=== PATIENT | male | born 1960 | race Caucasian/White ===

== ENCOUNTER 2016-04-08 11:33 | Emergency (ER) | payer OTHER ==
[~2016-04-08] VITALS: Ht 167.6 cm; Wt 79.2 kg
[~2016-04-08 11:33] MED LIST: ALBUAER19 INH; CRS20 PO; LEVO-366 PO; MOME200A INH; OXGN
[2016-04-08 11:36] VITALS: TEMP 36.8; Ht 167.6 cm; Wt 79.2 kg
[2016-04-08] MEDS ORDERED: LEVAQUIN 750MG / 150ML D5W IV STA (11:56)
[2016-04-08] MEDS ORDERED: METHYLPREDNISOLONE 125 MG VIAL IV STA (11:56)
[2016-04-08] MEDS ORDERED: ALBUTEROL 0.083% NEBU SOLN 3 ML VIAL INH STA (11:56)
[2016-04-08 12:09] VITALS: O2SAT 95
--- NOTE | 2016-04-08 12:17 | DIAGNOSTIC IMAGING REPORT ---
CHEST ONE VIEW PORTABLE CLINICAL HISTORY: EVALUATE RESPIRATORY DISTRESS. DYSPNEA dyspnea COMPARISON STUDY: 02/15/2016 FINDINGS: The bones soft tissues and hemidiaphragms are normal. The cardiomediastinal silhouette is normal. The lungs are clear. The pulmonary vasculature is normal. IMPRESSION: Negative chest. Electronically signed by: Darryn Castanon M.D. 04/08/2016 12:15 PM
[2016-04-08 12:18] LABS: BASO % 0.7 %; BASO ABS # 0.05 K/uL (0-0.2); COMPLETE YES; EOS % 4.1 %; HEMATOCRIT 43.7 % (42-52); IG% 0.3 %; LYMPH % 20.3 %; LYMPH ABS # 1.45 K/uL (1.2-3.4); MEAN CELL VOLUME 92.4 fL (80-100); MEAN CORPUSCULAR HEMOGLOBIN 30.9 pg (25-34); MEAN CORPUSCULAR HGB CONC 33.4 g/dl (32-36); MEAN PLATELET VOLUME 10.3 fL (7.4-10.4); NEUT % 61.6 %; PLATELET COUNT 242 K/uL (130-400); RED BLOOD COUNT 4.73 M/uL (4.7-6.1); WHITE BLOOD COUNT 7.14 K/uL (4.8-10.8)
[2016-04-08 12:27] LABS: PARTIAL THROMBOPLASTIN RATIO 1.2; PROTHROMBIN TIME (PATIENT) 10.5 SECONDS (9.0-12.0)
[2016-04-08 12:33] LABS: ALT/SGPT 30 U/L (12-78); AST/SGOT 15 U/L (15-37); BLOOD UREA NITROGEN 5 mg/dl (7-18); BUN/CREATININE RATIO 5.3 (10-20); CALCIUM 9.1 mg/dl (8.5-10.1); CARBON DIOXIDE 31 mmol/L (21-32); CHLORIDE 103 mmol/L (98-107); CREATININE 0.92 mg/dl (0.60-1.40); GLUCOSE 107 mg/dl (70-99); POTASSIUM 3.9 mmol/L (3.5-5.1); SODIUM 141 mmol/L (136-145)
[2016-04-08 12:37] LABS: ALKALINE PHOSPHATASE 82 U/L (45-117)
[2016-04-08] MEDS ORDERED: ASPI81TA28 PO (12:38)
[2016-04-08] MEDS ORDERED: LEVO1TAB35 PO (14:49)
[2016-04-08] MEDS ORDERED: PRED50TA PO (14:49)
[2016-04-08 15:08] VITALS: BP 134/86; PULSE 94; O2SAT 96
--- NOTE | 2016-04-08 18:31 | EMERGENCY ROOM VISIT NOTE ---
History Report prepared by Lalo: Ale York Under the Supervision of: Dr. Janusz Sotelo D.O. First contact with patient: 11:40 Chief Complaint: RESPIRATORY PROBLEMS Stated Complaint: RESPIRATORY PROBLEMS, BREATHING DIFFICULTY History of Present Illness The patient is a 55 year old male who presents to the Emergency Room with complaints of worsening respiratory problems that started two days ago. The patient normally wears nasal cannula oxygen at home but lately it is offering him minimal relief. He tried to relieve his symptoms with his nebulizer treatments and inhalers. He is also experiencing dyspnea on exertion, which is new for him. He states that he started experiencing a productive cough with yellow sputum yesterday. Additionally, he is experiencing lightheadedness, chills, and rhinorrhea. The patient is also experiencing diarrhea that started 3 days ago. He states that he experienced epigastric abdominal pain a couple days ago but denies any abdominal pain since then. He denies sorethroat, nausea , vomiting, hematochezia, and lower extremity edema. He also denies recent travel, any history of blood clots or cancer, and recent antibiotic or steroid use. The patient has COPD from smoking but states that he does not smoke now. He is on 2 L nasal cannula. Source of History: patient Onset: two days ago Position: chest Quality: other (respiratory problems) Timing: worsening Associated Symptoms: + abdominal pain (epigastric, none currently), + chills , + cough (productive with yellow sputum), No hematochezia, No nausea, No sorethroat, No vomiting Note: dyspnea on exertion, lightheadedness, rhinorrhea, no lower extremity edema Review of Systems See HPI for pertinent positives & negatives. A total of 10 systems reviewed and were otherwise negative. Past Medical & Surgical Medical Problems: (1) Hyperlipemia (2) Hypoxia (3) Respiratory failure Surgical Problems: (1) H/O rotator cuff surgery Family History FH: cancer FH: heart disease FH: lung disease Hypertension Kidney disease Social History Smoking Status: Former Smoker Drug Use: none Marital Status: Housing Status: lives with family Occupation Status: unemployed Current/Historical Medications Scheduled Aspirin (Aspirin Ec), 81 MG PO DAILY Levofloxacin (Levaquin), 750 MG PO QD@08 Mometasone Furoate-Formoterol (Dulera 200/5 Mcg), 2 AER INH BID Oxygen (Oxygen), 2 LITERS NA CONTINOUS Prednisone (Prednisone), 50 MG PO DAILY Rosuvastatin Calcium (Crestor), 20 MG PO DAILY Scheduled PRN Albuterol Inhaler (Ventolin Inhaler), 1 INHA INH QID PRN for rescue inhaler Allergies Coded Allergies: No Known Allergies (Unverified , 04/08/16) Physical Exam Vital Signs Date Time Temp Pulse Resp B/P Pulse Ox O2 Delivery O2 Flow Rate FiO2 04/08/16 15:08 94 22 134/86 96 Nasal Cannula 2.0 04/08/16 14:06 87 Nasal Cannula 2.0 04/08/16 13:15 104 22 127/88 97 Room Air 04/08/16 12:58 106 04/08/16 12:12 Nasal Cannula 3.0 95 04/08/16 12:09 95 Nasal Cannula 3.0 04/08/16 12:09 95 Nasal Cannula 3.0 04/08/16 11:36 36.8 112 20 108/76 86 Room Air Physical Exam GENERAL: alert, sitting up in bed, disheveled appearing, on nasal cannula oxygen , well nourished, no distress, non-toxic EYE EXAM: normal conjunctiva OROPHARYNX: no exudate, no erythema, lips, buccal mucosa, and tongue normal and mucous membranes are dry NECK: supple, no nuchal rigidity, no adenopathy, non-tender LUNGS: Minimal air movement bilaterally with diffuse wheezing. Normal chest wall mechanics HEART: no murmurs, S1 normal and S2 normal ABDOMEN: abdomen soft, non-tender, normo-active bowel sounds, no masses, no rebound or guarding. BACK: Back is symmetrical on inspection and there is no deformity, no midline tenderness, no CVA tenderness. SKIN: no rashes and no bruising UPPER EXTREMITIES: upper extremities are grossly normal. LOWER EXTREMITIES: No pitting edema. NEURO EXAM: Normal sensorium, cranial nerves II-XII grossly intact, normal speech, no gross weakness of arms, no gross weakness of legs. Medical Decision & Procedures ER Provider Diagnostic Interpretation: Xray results per the radiologist and my interpretation. Other results have been interpreted by the radiologist and reviewed by me. CHEST ONE VIEW PORTABLE CLINICAL HISTORY: EVALUATE RESPIRATORY DISTRESS. DYSPNEA dyspnea COMPARISON STUDY: 02/15/2016 FINDINGS: The bones soft tissues and hemidiaphragms are normal. The cardiomediastinal silhouette is normal. The lungs are clear. The pulmonary vasculature is normal. IMPRESSION: Negative chest. Electronically signed by: Darryn Castanon M.D. 04/08/2016 12:15 PM Laboratory Results 04/08/16 12:00 Red Blood Count 4.73, Mean Corpuscular Volume 92.4, Mean Corpuscular Hemoglobin 30.9, Mean Corpuscular Hemoglobin Concent 33.4, Mean Platelet Volume 10.3, Neutrophils (%) (Auto) 61.6, Lymphocytes (%) (Auto) 20.3, Monocytes (%) (Auto) 13.0, Eosinophils (%) (Auto) 4.1, Basophils (%) (Auto) 0.7, Neutrophils # (Auto ) 4.40, Lymphocytes # (Auto) 1.45, Monocytes # (Auto) 0.93, Eosinophils # (Auto ) 0.29, Basophils # (Auto) 0.05 04/08/16 12:00 Test 04/08/16 12:00 White Blood Count 7.14 K/uL (4.8-10.8) Red Blood Count 4.73 M/uL (4.7-6.1) Hemoglobin 14.6 g/dL (14.0-18.0) Hematocrit 43.7 % (42-52) Mean Corpuscular Volume 92.4 fL (80-100) Mean Corpuscular Hemoglobin 30.9 pg (25-34) Mean Corpuscular Hemoglobin Concent 33.4 g/dl (32-36) Platelet Count 242 K/uL (130-400) Mean Platelet Volume 10.3 fL (7.4-10.4) Neutrophils (%) (Auto) 61.6 % Lymphocytes (%) (Auto) 20.3 % Monocytes (%) (Auto) 13.0 % Eosinophils (%) (Auto) 4.1 % Basophils (%) (Auto) 0.7 % Neutrophils # (Auto) 4.40 K/uL (1.4-6.5) Lymphocytes # (Auto) 1.45 K/uL (1.2-3.4) Monocytes # (Auto) 0.93 K/uL (0.11-0.59) Eosinophils # (Auto) 0.29 K/uL (0-0.5) Basophils # (Auto) 0.05 K/uL (0-0.2) RDW Standard Deviation 46.1 fL (36.4-46.3) RDW Coefficient of Variation 13.6 % (11.5-14.5) Immature Granulocyte % (Auto) 0.3 % Immature Granulocyte # (Auto) 0.02 K/uL (0.00-0.02) Prothrombin Time 10.5 SECONDS (9.0-12.0) Prothromb Time International Ratio 1.0 (0.9-1.1) Activated Partial Thromboplast Time 32.2 SECONDS (21.0-31.0) Partial Thromboplastin Ratio 1.2 Anion Gap 7.0 mmol/L (3-11) Est Creatinine Clear Calc Drug Dose 89.7 ml/min Estimated GFR () 108.1 Estimated GFR (Non- 93.3 BUN/Creatinine Ratio 5.3 (10-20) Calcium Level 9.1 mg/dl (8.5-10.1) Total Bilirubin 0.3 mg/dl (0.2-1) Aspartate Amino Transf (AST/SGOT) 15 U/L (15-37) Alanine Aminotransferase (ALT/SGPT) 30 U/L (12-78) Alkaline Phosphatase 82 U/L (45-117) Troponin I < 0.015 ng/ml (0-0.045) Pro-B-Type Natriuretic Peptide 24 pg/ml (0-900) Total Protein 7.6 gm/dl (6.4-8.2) Albumin 3.8 gm/dl (3.4-5.0) Globulin 3.8 gm/dl (2.5-4.0) Albumin/Globulin Ratio 1.0 (0.9-2) Laboratory results per my review. Medications Administered Medications (Trade) Dose Ordered Sig/Lisandra Route Start Time Stop Time Status Last Admin Dose Admin Albuterol Sulfate (Ventolin 0.083% 2.5MG/3ML Neb) 5 mg NOW STAT INH 04/08/16 11:56 04/08/16 12:00 DC 04/08/16 12:09 5 MG Methylprednisolone Sodium Succinate (Solu-Medrol IV) 125 mg NOW STAT IV 04/08/16 11:56 04/08/16 12:00 DC 04/08/16 12:08 125 MG Levofloxacin (Levaquin / D5w) 750 mg NOW STAT IV 04/08/16 11:56 04/08/16 12:00 DC 04/08/16 12:08 750 MG ECG Indication: SOB/dyspnea Rate (beats per minute): 87 Rhythm: sinus rhythm Findings: Q waves (Septal), no ectopy, other (normal axis, poor baseline) ED Course ED COURSE: Vital signs were reviewed and showed tachycardia. The patients medical record was reviewed The above diagnostic studies were performed and reviewed. ED treatments and interventions as stated above. 1145: The patient was evaluated in room B9. A complete history and physical examination was performed. 1156: Ordered Levofloxacin 750 mg IV, Solu-Medrol 125 mg IV, Albuterol Sulfate 5 mg INH 1314: I reassessed and updated the patient. 1446: Upon reevaluation, the patient is feeling better. He does not want to stay and prefers to go home even though his pulse ox goes down to 87%. I discussed my findings with the patient and he understands and agrees with the treatment plan. Based on the patients age, coexisting illnesses, exam and lab findings the decision to treat as an outpatient was made. The patient remained stable while under my care. The patient appeared well at the time of discharge. Medical Decision Differential diagnoses includes but is not limited to pneumonia, bronchitis, COPD/Asthma exacerbation, pneumothorax, pulmonary embolism, congestive heart failure, acute coronary syndrome Patient is a 55-year-old male with a past medical history of COPD from smoking chronically on 2 L nasal cannula presents the ER for over esterase symptoms associated with yellow productive cough, shortness of breath, runny nose and sore throat which has been worsening over the past 3 days. He called his PCP who referred him into the hospital for further evaluation. Labs show no significant anemia or leukocytosis. BMP along with LFTs, troponin are all unremarkable. Patient on room air is hypoxic but on his chronic 2 L stats in the mid 90s. When he does ambulate he dropped down to 87-89% on his 2 L. Patient was given a neb treatment along with steroids and antibiotics. He notes that he does feel much better. He requested to be discharged and would prefer to be worked up as an outpatient. I did recommend admission the patient notes all follow with his PCP within 24 hours I would rather do this at home. Following this I discharged him with Levaquin and steroids instructed him to follow-up with his PCP along with increasing his nasal cannula to 3 L with exertion. Discussed with Pt concerning signs and symptoms to watch out for. Pt was instructed to follow up with their PCP and discussed with the patient their option to return to the ED at anytime for persistent or worsening symptoms. The appropriate anticipatory guidance and out-patient management, including indications for return to the emergency department, were explained at length to the patient and understood. Impression Primary Impression: COPD exacerbation Additional Impression: Bronchitis Scribe Attestation The scribe's documentation has been prepared under my direction and personally reviewed by me in its entirety. I confirm that the note above accurately reflects all work, treatment, procedures, and medical decision making performed by me. Departure Information Dispostion Home / Self-Care Prescriptions Levofloxacin (Levaquin) 750 Mg Tab 750 MG PO QD@08, #9 TAB Prov: Janusz Sotelo, DO 04/08/16 Prednisone (PREDNISONE) 50 Mg Tab 50 MG PO DAILY for 4 Days, TAB Prov: Janusz Sotelo, DO 04/08/16 Referrals Parvene Roper D.OBree (PCP) Forms HOME CARE DOCUMENTATION FORM, IMPORTANT VISIT INFORMATION, WORK / SCHOOL INSTRUCTIONS Patient Instructions A Signature Page, COPD - [facility], ED Bronchitis Abx Tx, My [facility] Additional Instructions Please follow up with your primary care doctor with in the next 24 hours. Any worsening of your symptoms, please return to the ED immediately. This includes worsening shortness of breath, passing out, chest pain, or any other concerning signs or symptoms from your standpoint. Please take antibiotics and steroids as prescribed. You should increase her oxygen from 2 L to 3 L with ambulation.
== END 2016-04-08 15:23 | disposition home or self-care (01) ==
LOC: C.EDB 11:52
DX: J44.1 Chronic obstructive pulmonary disease with (acute) exacerbation (principal); J40 Bronchitis, not specified as acute or chronic; E78.5 Hyperlipidemia, unspecified; R19.7 Diarrhea, unspecified; Z87.891 Personal history of nicotine dependence; Z99.81 Dependence on supplemental oxygen; Z79.52 Long term (current) use of systemic steroids; Z79.82 Long term (current) use of aspirin; Z79.899 Other long term (current) drug therapy

== ENCOUNTER → 2016-07-14 | Outpatient (CLI) | payer OTHER ==
[~2016-07-14] MED LIST changes: +ASPI81TA28 PO; -LEVO-366 PO; +LEVO1TAB35 PO
--- NOTE | 2016-07-15 06:26 | PAP/PSG TECHNICIAN REPORT ---
[facility] Special Machine Stitcher Polysomnogram Report Study name: None Report date: 07/15/2016 Study date: 07/14/2016 Referring Physician: RADHA BRYANT Name: JENNIE HODGE Interpreting Physician: Evy Altman M.D. Date of : 1960 Special Machine Stitcher: Doris Luis RPS. Sex: Male Age: 56 StudyType: PSG Weight: 176 lbs Height: 56 years, Height 5' 6" BMI: 28.4 Medications: Nicotine Patch, Advair, Ventolin, Aspirin 81 mg, Oxygen Patient History 56 yr. old male here for a possible split night with ETC02. Patient is on 2 lpm 02, he will be started on room air. Patient complains of snoring. restlessness, snoring and insomnia. Patients [place]field sleepiness scale score is 13/24. Parameters Monitored NPSG: E1-M2, E2-M1, Fp1-M2, Fp2-M1, F3-M2, F4-M2, F4-M1, C3-M2, C4-M2, C4-M1, O1-M2, O2-M2, O2-M1, T3-M2, T4-M1, P3-M2, P4-M1, CHIN1, CHIN2, HR, EKG, Legs, PFLOW, SNOR, FLOW, CFLOW, Tidal Volume, THOR, ABDO, SpO2, PLTH, CPRESS, ETCO2 Wave, ETCO2, pH Sleep Architecture Sleep Stages Time at Lights Off 10:53:07 PM STAGES Time (min.) TST (%) Time at Lights On 5:26:07 AM Wake 80.5 -- Total Recording Time (TRT) 393.50 min. N1 27.0 9 Total Sleep Period (TSP) 353.0 min. N2 206.5 66 Total Sleep Time (TST) 312.5min. N3 20.0 6 Awake Time 80.5 min. REM 59.0 19 Wake after Sleep Onset 40.5 min. Sleep Efficiency (SE) 80 % Sleep Onset Latency (ANN) 40.0 min. Number of Stage 1 Shifts None Awakenings 25 Stage Changes 115 Number of REM periods 14 REM 59.0 19 REM Latency 66.5 min. NREM 253.5 81 Body Position Analysis Supine Right Left Side Prone Vertical Total Sleep Time (min.) 215.8 154.1 0.0 154.14 0.0 0.0 Total Sleep Time (%) 51% 49% 0% 49 0% N/A% Total Sleep Time REM (min.) 37.0 22.0 0.0 None 0.0 0.0 Total Sleep Time NREM (min.) 121.4 132.1 0.0 None 0.0 0.0 Intermittent Wake (min.) 57.5 23.0 0.0 None 0.0 0.0 Total Sleep Period (%) 50% None None None None None Arousals Myoclonus (PLM) * Events Count Index Events Count Index Spontaneous 22 4 Events Awake (PLMW) 48 35.8 Respiratory 12 2.7 Events Asleep w/ Arousal (PLMA) 22 4.2 PLM 22 4 Events Asleep w/o Arousal (PLMS) 59 11.3 Snoring 9 2 Total Asleep 81 15.6 Total 64 12 Total 129 20 Respiratory Analysis * CA OA MA CH H RERA Total Count 0 0 0 0 52 0 52 Index 0.0 0.0 0.0 0 10.0 0 10.0 Mean Duration 0.0 0.0 0.0 0.00 24.0 0.0 24.0 Longest Duration 0.0 0.0 0.0 0.00 0.0 0.0 54.8 Respiratory Event Summary Total Supine ~Supine Right Left Prone REM NREM Apneas Count 0 0 0 0 N/A N/A 0 0 Index 0.0 0 0 0.0 N/A N/A 0 0 Hypopneas (4% Desat) Count 52 35 17 17 N/A N/A 39 13 Index 10.0 13.3 7 6.6 N/A N/A 39.7 3.1 Apneas & All Hypopneas Count 52 35 17 17 N/A N/A 39 13 Index 10.0 13 7 7 N/A N/A 39.7 3.1 Respiratory Events (Manager Media+All Hyp+RERA) Count 52 35 17 17 N/A N/A 39 13 Index 10.0 13 7 6.6 N/A N/A 39.7 3.1 Respiratory Related Arousal Count 12 35 5 5 N/A N/A 10 4 Index 2.7 3 2 2 N/A N/A 10 1 Snoring Analysis Supine Right Left Prone REM NREM Total Snore duration 7.7 min Snores count 470 14 N/A N/A 15 469 484 Snore mean duration 1.0 Sec Snores index 178 5 N/A N/A 15.3 111.0 92.9 TST with snoring (%) 2.5% SpO2 Analysis Total REM NREM Awake <50% 0.0 min. 0.0 min. 0.0 min. 0.0 min. 51 - 60% 0.0 min. 0.0 min. 0.0 min. 0.0 min. 61 - 70% 0.0 min. 0.0 min. 0.0 min. 0.0 min. 71 - 80% 1.0 min. 0.8 min. 0.0 min. 0.2 min. 81 - 90% 361.7 min. 56.8 min. 241.8 min. 63.2 min. 91 - 100% 29.8 min. 1.4 min. 11.7 min. 16.8 min. Average 88 87 88 89 Minimum SpO2 79 79 79 80 Desaturation Event Index 8.2 37.6 3.3 3.7 # Desat. Events below 89% 54 37 12 5 Time(%) with Saturation below 89% 56.2 11.7 38.2 6.3 Time(min.) with Saturation below 89% 220.6 45.7 150.1 24.7 Heart Rate Analysis End Tidal CO2 Analysis Min (bpm) Max (bpm) Average (bpm) TSP (mins) % of TSP Awake 73 115 95 Above 55 mmHg 0.0 0.0 NREM 78 109 90 50-55 mmHg 0.0 0.0 REM 71 103 89 45-50 mmHg 2.8 0.9 Overall 71 109 90 40-45 mmHg 122.9 39.3 35-40 mmHg 126.4 40.5 30-35 mmHg 10.1 3.2 Average ETCO2 0.2 Supplemental O2 Values Minimum O2 level: None Value Start Time End Time Special Machine Stitcher Comments Mr. Hodge slept in the right and supine position. PLMs noted no EKG abnormalities noted. No bruxism noted. Snoring was noted and scored as a 3 on a scale of 0 through 5. (0=no snoring, 5=snoring loud enough to be heard through a closed door or down the [address] way) Mr. Hodge did not wake to use the restroom during the night. Mr. Hodge stated,That was a normal night. The final report will be interpreted and signed by a sleep physician. The completed physician report will then be placed in the patient medical record. Therapy (cm H2O) 0 TIB (min.) 393.0 TST (min.) 312.5 Sleep Onset (min.) 40.0 REM Onset From Sleep (min.) 66.5 Sleep Efficiency % 80 Wakefulness (%) 20 Wakefulness (min.) 80.5 NREM 1 (%) 9 NREM 1 (min.) 27.0 NREM 2 (%) 66 NREM 2 (min.) 206.5 NREM 3 (%) 6 NREM 3 (min.) 20.0 REM (%) 19 REM (min.) 59.0 # Arousals 64 Arousal Index 12 # Snore 484 Snore Index 92.9 AHI 10.0 AHI Supine 13 AHI Non-Supine 7 NREM AHI 3.1 REM AHI 39.7 RDI 10.0 # Obstructive Apnea 0 # Central Apnea 0 # Mixed Apnea 0 # Hypopneas 52 RERAs 0 Total Respiratory Events 53 Time Below SpO2 89% (min.) 195.8 Mean NREM SpO2 (%) 88 Mean REM SpO2 (%) 87 Mean Sleep SpO2 (%) 88 Min NREM SpO2 (%) 79 Min REM SpO2 (%) 79 Position Supine (min.) 215.8 Position Non-supine (min.) 154.1 LM Index Sleep 15.6 LM Index NREM 14.2 LM Index REM 21.4 Mean Heart Rate (bpm) 90 Min Heart Rate (bpm) 71
--- NOTE | 2016-07-27 18:36 | POLYSOMNOGRAPH REPORT ---
INTERPRETING PHYSICIAN: Roselyn Altman MD LEAD TELLER: Mr. Hodge is a 56-year-old male sent for a possible split night sleep study. He currently wears 2 liters of oxygen at bedtime. He complains of snoring, restlessness and insomnia. His Nordheim Sleepiness Scale score on the evening of this study is 13. BMI is 28.4. Following the technical and digital specifications of the [place] [employer] (AASM) a standard diagnostic polysomnogram was performed monitoring EEG, EOG, EMG (chin and leg deviations), oxygen saturation, body position, digital video, respiratory effort and airflow. The sleep Stage and event scoring was based on the AASM Manual for the Scoring of Sleep and Associated Events 2007 edition. Apneas are defined as a drop in the peak thermal sensor excursion by >90% of baseline for at least 10 seconds. Hypopneas were scored using the 4% oxygen desaturation rule (4A-Medicare) and a decrease in the nasal pressure excursions by >30% of baseline for at least 10 seconds. Respiratory effort-related arousal (RERA's) is defined as a sequence of breaths lasting at least 10 seconds characterized by increasing respiratory effort or flattening of the nasal pressure waveform leading to an arousal from sleep when the sequence of breaths does not meet criteria for an apnea or hypopnea. Apnea Hypopnea index (AHI) is defined as the number of apneas and hypopneas occurring in an hour of sleep. Respiratory disturbance index (RDI) is defined as the number of apneas, hypopneas, and RERA's occurring in an hour of sleep. Mr. Hodge's total sleep period time was 353 minutes. Total sleep time was 312.5 minutes. Sleep efficiency was 80%. Latency to sleep onset was 40 minutes with wake after sleep onset of 40.5 minutes. Total non-REM sleep time was 253.5 minutes. He spent 9% of that time in N1 sleep, 66% in N2 sleep and 6% in N3 sleep. REM latency was 66.5 minutes. Total REM sleep time was 59 minutes or 19% of total sleep time. There were 64 cortical arousals from sleep. 22 of these arousals were spontaneous, 12 were due to respiratory events, 22 due to periodic limb movements and 9 were due to snoring. There were for 81 periodic limb movements noted on this test. Limb movement index was 15.6. Limb movement with arousal index was 4.2. There were no central, obstructive, or mixed apneas on this test. There were 52 hypopneas and no RERA. Apnea-hypopnea index was 10. This is consistent with mild sleep apnea. Supine AHI was 13. REM AHI was 39.7. There were 464 snoring events recorded. Total sleep time with snoring was 2.5%. Mean saturation during sleep was low at 88%. Saturations were less than 89% for 220.6 minutes of recording time. Lowest saturation was 79%. This is significant nocturnal hypoxemia. There was no cardiac ectopy noted on this study. Heart rates ranged from a low of 71 beats per minute to a high of 109 beats per minute during sleep. End tidal CO2 was recorded on this test. However, this data appeared to be incomplete. IMPRESSION AND PLAN: A 56-year-old male with evidence of mild sleep apnea present both in supine and non-supine REM sleep, predominantly. I would recommend that this patient be started on positive airway pressure therapy. He should return to the sleep lab for a full night titration and then based on those results be started on equipment at home. A download from his machine can be reviewed in 1 month both to check compliance as well as apnea-hypopnea index and further pressure adjustments can occur at that time. This will ensure that her hypoxemia as well as apnea resolves with CPAP therapy. Should this patient be unwilling or unable to tolerate CPAP therapy, he should continue on his 2 liters of oxygen and be referred to ear, nose and throat or oral surgery/dental medicine (if appropriate) to discuss alternative treatments for sleep-disordered breathing. SEB
== END | disposition home or self-care (01) ==
LOC: C.NEUR 21:00
PROVIDERS: ATTEND Family Medicine
DX: J44.9 Chronic obstructive pulmonary disease, unspecified (principal); G47.34 Idiopathic sleep related nonobstructive alveolar hypoventilation; R06.83 Snoring; G47.62 Sleep related leg cramps; F51.04 Psychophysiologic insomnia; G47.30 Sleep apnea, unspecified

== ENCOUNTER → 2016-09-17 | Outpatient (CLI) | payer OTHER ==
[~2016-09-17] MED LIST changes: +GADOXETATE DISODIUM (NON-WT BASED PROCEDURE) IV PRN
--- NOTE | 2016-09-17 12:47 | DIAGNOSTIC IMAGING REPORT ---
MRI LIVER COMBO CLINICAL HISTORY: Abnormal liver function tests. Liver lesion. COMPARISON STUDY: Chest CT from [facility] August 29, 2016. TECHNIQUE: Utilizing a 1.5 Shauna magnet and dedicated coil, multiplanar, multiecho imaging of the abdomen was performed pre and postcontrast administration. FINDINGS: Liver morphology is normal. There are multiple small T2 hyperintense nonenhancing hepatic lesions consistent with cysts. These measure up to 1 cm. In addition, there is a 1 cm T2 hyperintense lesion within segment 2 of the liver shown on axial image 15 of 88. This has a few thin enhancing septations. No nodular component is present. This has benign imaging characteristics. The spleen, adrenal glands, kidneys and pancreas are normal. There is no biliary or pancreatic ductal dilatation. There is no abdominal lymphadenopathy or ascites. IMPRESSION: Several small hepatic cysts which correspond to the lesions on recent chest CT. These lesions have benign imaging characteristics. Electronically signed by: Andrew Ivan M.D. 09/17/2016 12:46 PM Dictated Date/Time: 09/17/2016 12:11 PM
== END | disposition home or self-care (01) ==
LOC: C.MRIBC 10:47
PROVIDERS: ATTEND Internal Medicine
DX: R94.5 Abnormal results of liver function studies (principal); K76.9 Liver disease, unspecified

== ENCOUNTER → 2016-12-10 | Outpatient (CLI) | payer OTHER ==
[~2016-12-10] MED LIST changes: -GADOXETATE DISODIUM (NON-WT BASED PROCEDURE) IV PRN; -LEVO1TAB35 PO
--- NOTE | 2016-12-11 06:37 | PAP/PSG TECHNICIAN REPORT ---
[facility] Computer Information Science Professor Polysomnogram Report Study name: None Report date: 12/11/2016 Study date: 12/10/2016 Referring Physician: Geovanny ALTMAN M.D. Name: JENNIE HODGE Interpreting Physician: Evy Altman M.D. Date of : 1960 Computer Information Science Professor: Kait Mariee RPSGT. Sex: Male Age: 56 Study Type: PSG PAP Weight: 176 lbs Height: 56 years, Height 5' 6" BMI: 28.4 Medications: CRESTOR 20 MG, ANORA ELLIPTA 62.5-25 MCG/INH, PREDNISONE 20 MG, VENTOLIN HFA, ASPIRIN 81 MG Patient History 56 yr-old male here for a new CPAP treatment study. He was found to be positive for JESUS with an AHI of 10. His diagnostic study was on 07/14/16. He chose an AirFit F10 full face mask size medium from [employer]. The test was started on room air and 4 CMH2O. ETCO2 testing was not utilized during this study. Room 1 Parameters Monitored NPSG: E1-M2, E2-M1, Fp1-M2, Fp2-M1, F3-M2, F4-M2, F4-M1, C3-M2, C4-M2, C4-M1, O1-M2, O2-M2, O2-M1, T3-M2, T4-M1, P3-M2, P4-M1, CHIN1, CHIN2, HR, EKG, Legs, PFLOW, SNOR, FLOW, CFLOW, Tidal Volume, THOR, ABDO, SpO2, PLTH, CPRESS, ETCO2 Wave, ETCO2, pH Sleep Architecture Sleep Stages Time at Lights Off 10:49:56 PM STAGES Time (min.) TST (%) Time at Lights On 5:38:26 AM Wake 158.5 -- Total Recording Time (TRT) 408.50 min. N1 46.5 19 Total Sleep Period (TSP) 358.0 min. N2 167.0 67 Total Sleep Time (TST) 250.0min. N3 0.5 0 Awake Time 158.5 min. REM 36.0 14 Wake after Sleep Onset 112.5 min. Sleep Efficiency (SE) 61 % Sleep Onset Latency (ANN) 46.0 min. Number of Stage 1 Shifts None Awakenings 18 Stage Changes 73 Number of REM periods 2 REM 36.0 14 REM Latency 80.5 min. NREM 214.0 86 Body Position Analysis Supine Right Left Side Prone Vertical Total Sleep Time (min.) 113.3 0.0 226.0 226.00 0.0 0.0 Total Sleep Time (%) 10% 0% 90% 90 0% N/A% Total Sleep Time REM (min.) 0.0 0.0 36.0 None 0.0 0.0 Total Sleep Time NREM (min.) 24.0 0.0 190.0 None 0.0 0.0 Intermittent Wake (min.) 89.3 5.5 63.7 None 0.0 0.0 Total Sleep Period (%) 20% None None None None None Arousals Myoclonus (PLM) * Events Count Index Events Count Index Spontaneous 55 13 Events Awake (PLMW) 51 19.3 Respiratory 3 0.7 Events Asleep w/ Arousal (PLMA) 5 1.2 PLM 5 1 Events Asleep w/o Arousal (PLMS) 22 5.3 Snoring 3 1 Total Asleep 27 6.5 Total 66 16 Total 78 11 Respiratory Analysis * CA OA MA CH H RERA Total Count 3 0 0 0 17 2 20 Index 0.7 0.0 0.0 0 4.1 0 5.3 Mean Duration 12.6 0.0 0.0 0.00 18.6 15.0 17.5 Longest Duration 14.5 0.0 0.0 0.00 0.0 16.7 30.3 Respiratory Event Summary Total Supine ~Supine Right Left Prone REM NREM Apneas Count 3 0 3 N/A 3 N/A 0 3 Index 0.7 0 1 N/A 0.8 N/A 0 1 Hypopneas (4% Desat) Count 17 1 16 N/A 16 N/A 13 4 Index 4.1 2.5 4 N/A 4.2 N/A 21.7 1.1 Apneas & All Hypopneas Count 20 1 19 N/A 19 N/A 13 7 Index 4.8 3 5 N/A 5 N/A 21.7 2.0 Respiratory Events (Animal Technician+All Hyp+RERA) Count 20 1 21 N/A 21 N/A 13 7 Index 5.3 3 6 N/A 5.6 N/A 21.7 2.5 Respiratory Related Arousal Count 3 1 3 N/A 3 N/A 1 2 Index 0.7 0 1 N/A 1 N/A 2 1 Snoring Analysis Supine Right Left Prone REM NREM Total Snore duration 0.7 min Snores count 0 N/A 25 N/A 7 18 25 Snore mean duration 1.7 Sec Snores index 0 N/A 7 N/A 11.7 5.0 6.0 TST with snoring (%) 0.3% Desaturation Event Summary: Minimum %SpO2 Event Count Mean/Min/Max Duration(sec.) Desaturation Index % Time In Bed > 90 12 26.7 / 7.5 / 47.8 12.5 14.4 86 - 90 23 23.5 / 7.3 / 43.0 4.1 83.7 81 - 85 2 13.0 / 9.5 / 16.5 16.1 1.9 76 - 80 0 N/A 0.0 0.0 71 - 75 0 N/A 0.0 0.0 66 - 70 0 N/A 0.0 0.0 61 - 65 0 N/A 0.0 0.0 56 - 60 0 N/A 0.0 0.0 51 - 55 0 N/A 0.0 0.0 < 50 0 N/A 0.0 0.0 Total REM NREM Awake <50% 0.0 min. 0.0 min. 0.0 min. 0.0 min. 51 - 60% 0.0 min. 0.0 min. 0.0 min. 0.0 min. 61 - 70% 0.0 min. 0.0 min. 0.0 min. 0.0 min. 71 - 80% 0.0 min. 0.0 min. 0.0 min. 0.0 min. 81 - 90% 342.6 min. 31.1 min. 207.7 min. 103.7 min. 91 - 100% 57.7 min. 4.9 min. 6.3 min. 46.5 min. Average 89 88 89 90 Minimum SpO2 82 82 83 84 Desaturation Event Index 3.8 28.3 0.6 2.6 # Desat. Events below 89% 26 17 2 7 Time(%) with Saturation below 89% 41.9 5.2 27.5 9.3 Time(min.) with Saturation below 89% 167.6 20.6 109.9 37.1 Time (mins) REM (mins) NREM (mins) % of TST SpO2 Below 90% 19 17 N2 80.4 SpO2 Below 88% 8 0 0 19 Heart Rate Analysis Min (bpm) Max (bpm) Average (bpm) Awake 66 107 78 NREM 65 94 73 REM 64 84 73 Overall 64 94 73 Supplemental O2 Values Minimum O2 level: None Value Start Time End Time Computer Information Science Professor Comments Mr. Hodge slept in the right, left, and supine positions. No cardiac arrhythmia or PLMs noted. No bruxism noted. CPAP was initiated at +4 CMH2O and up-titrated to a level of +9 CMH2O, Cflex 2 which nearly eliminated all respiratory events and snoring. An AirFit F10 full face mask size medium from [employer] was used during titration He awoke to use the restroom one time during the night. Mr. Hodge stated that he slept ok. The final report will be interpreted and signed by a sleep physician. The completed physician report will then be placed in the patient medical record. Therapy Event: Therapy (cm H20) 4 6 8 9 Total Time at Pressure (min.) 130.9 18.8 148.4 110.4 TST at Pressure (min.) 64.4 18.8 137.8 29.0 # Periods 1 1 1 1 Sleep Onset (min.) 46.0 0.0 0.0 55.4 REM Onset (min.) 126.5 0.0 0.0 N/A Sleep Efficiency % 49 100 92 26 Wakefulness (%) 50.8 0.0 7.1 73.7 Wakefulness (min.) 66.5 0.0 10.6 81.4 NREM 1 (%) 9.9 0.0 8.4 19.0 NREM 1 (min.) 13.0 0.0 12.5 21.0 NREM 2 (%) 35.9 0.0 75.5 7.2 NREM 2 (min.) 47.0 0.0 112.0 8.0 NREM 3 (%) 0.0 0.0 0.3 0.0 NREM 3 (min.) 0.0 0.0 0.5 0.0 REM (%) 3.4 100.0 8.6 0.0 REM (min.) 4.4 18.8 12.8 0.0 # Arousals 19 3 20 24 Arousal Index 17.7 9.6 8.7 49.7 # Snore 0 5 20 0 Snore Index 0.0 16.0 8.7 0.0 AHI 5.6 32.0 1.3 2.1 AHI Supine 0.0 N/A N/A 5.7 AHI Non-Supine 7.1 32.0 1.3 0.0 NREM AHI 3.0 N/A 1.4 2.1 REM AHI 40.6 32.0 0.0 N/A RDI 5.6 32.0 2.2 2.1 # Obstructive 0 0 0 0 # Central Ap 1 0 2 0 # Mixed 0 0 0 0 # Hypopneas 5 10 1 1 RERAS 0 0 2 0 Total Respiratory Events 6 10 5 1 Time Below SpO2 89.00% (min.) 11.9 8.5 99.6 10.6 Mean NREM SpO2 (%) 89 N/A 88 89 Mean REM SpO2 (%) 87 89 87 N/A Mean Sleep SpO2 (%) 89 89 88 89 Min NREM SpO2 (%) 83 N/A 84 87 Min REM SpO2 (%) 83 82 84 N/A Position Supine (min.) 13.5 0.0 0.0 10.5 Position Non-supine (min.) 50.9 18.8 137.8 18.5 LM Index Sleep 8.4 6.4 3.5 16.6 LM Index NREM 9.0 N/A 2.9 16.6 LM Index REM 0.0 6.4 9.4 N/A Mean Heart Rate (bpm) 73 73 73 73 Min Heart Rate (bpm) 65 65 64 69
--- NOTE | 2016-12-19 16:47 | POLYSOMNOGRAPH REPORT ---
REFERRING PERSON: Dr. Roselyn Altman. CHIN STRAP SEWER: Kait Mariee. Mr. Hodge is a 56-year-old male sent for CPAP titration study. He was recently found to have obstructive sleep apnea with an AHI of 10 on 07/14/2016. He has chosen an AirFit F10 full face mask in a medium size by [employer] for his titration. His [place] sleepiness scale score on the evening of this study is not recorded. BMI is 28.4. Following the technical and digital specifications of the [place] [employer] (AASM) a standard diagnostic polysomnogram was performed monitoring EEG, EOG, EMG (chin and leg deviations), oxygen saturation, body position, digital video, respiratory effort and airflow. The sleep Stage and event scoring was based on the AASM Manual for the Scoring of Sleep and Associated Events 2007 edition. Apneas are defined as a drop in the peak thermal sensor excursion by >90% of baseline for at least 10 seconds. Hypopneas were scored using the 4% oxygen desaturation rule (4A-[employer]) and a decrease in the nasal pressure excursions by >30% of baseline for at least 10 seconds. Respiratory effort-related arousal (RERA's) is defined as a sequence of breaths lasting at least 10 seconds characterized by increasing respiratory effort or flattening of the nasal pressure waveform leading to an arousal from sleep when the sequence of breaths does not meet criteria for an apnea or hypopnea. Apnea Hypopnea index (AHI) is defined as the number of apneas and hypopneas occurring in an hour of sleep. Respiratory disturbance index (RDI) is defined as the number of apneas, hypopneas, and RERA's occurring in an hour of sleep. Mr. Hodge's total sleep period time was 358 minutes. Total sleep time was 250 minutes. Sleep efficiency was 61%. Latency to sleep onset was 46 minutes with wake after sleep onset of 112.5 minutes. Total non-REM sleep time was 214 minutes. He spent 19% of that time in N1 sleep, 67% in N2 sleep and had no time in N3 sleep. REM latency was 80.5 minutes. Total REM sleep time was 36 minutes or 14% of total sleep time. There were 66 cortical arousals from sleep. 55 of these arousals were spontaneous, 3 were due to respiratory events, 5 due to periodic limb movements of sleep and 3 were due to snoring. There were 27 periodic limb movements noted on this test. Limb movement index was 6.5. Limb movement with arousal index was 1.2. There were 3 central, no obstructive, and no mixed apnea on this titration. There were 17 hypopnea and 2 RERA. Apnea-hypopnea index was 4.8. Twenty-five snoring events were recorded. Total sleep time with snoring was 0.3%. Mean saturation was low at 89% with desaturations to 82%. Saturations were less than 89% for 167.6 minutes of this sleep study. There was no cardiac ectopy noted on this study. Heart rates ranged from a low of 64 beats per minute to a high of 94 beats per minute during sleep. As stated above, this was a CPAP titration study and this patient was titrated from a CPAP pressure of 4 to a CPAP pressure of 9 over the course of the night. Increasing pressures were needed to prevent apneas, hypopneas and arousals. He was titrated to a CPAP pressure of 9, but remained on a pressure of 9 for only 29 minutes of observation. There was a long period of wakefulness on a pressure of 9. His AHI and RDI on a pressure 9 were both 2.1; however, saturations remained less than 89% for 10.6 minutes of sleep time. He was observed on a pressure of 8 for 137.8 minutes of sleep. 12.8 of those minutes was spent in REM sleep. AHI and RDI were 1.3 and 2.2 respectively, but saturations were less than 89 for 99.6 minutes of recorded time. IMPRESSION AND PLAN: Suboptimal, but successful CPAP titration study in this patient with mild sleep apnea. It appears that this patient would benefit from CPAP therapy at a pressure of 9. Unfortunately, it appears that he is likely going to have residual hypoxemia on CPAP alone. An n.p.o. can be performed on CPAP at 9 and if oxygen levels are low, he can be started on oxygen supplementation with his CPAP. As the cause of this nocturnal hypoxemia, given that his overall AHI on its virginal test was only 10, is unknown, this patient may benefit from pulmonary function test and/or pulmonary consultation.
== END | disposition home or self-care (01) ==
LOC: C.NEUR 21:00
PROVIDERS: ATTEND Internal Medicine Pulmonary Disease
DX: G47.34 Idiopathic sleep related nonobstructive alveolar hypoventilation (principal); G47.33 Obstructive sleep apnea (adult) (pediatric); J44.9 Chronic obstructive pulmonary disease, unspecified; F17.200 Nicotine dependence, unspecified, uncomplicated

== ENCOUNTER 2022-02-02 04:55 | Inpatient (IN) ==
[2022-02-02 05:16] LABS: Basophils # (auto) 0.08 K/uL (0-0.2); Basophils % (auto) 0.5 %; Eosinophils # (auto) 0.03 K/uL (0-0.50); Eosinophils % (auto) 0.2 %; Hematocrit (blood only) 46.8 % (40.1-51.0); Hemoglobin 15.3 g/dl (14.0-18.0); Immature Granulocytes # (auto) 0.06 K/uL (0.00-0.02); Immature Granulocytes % (auto) 0.4 %; Lymphocytes # (auto) 0.89 K/uL (1.2-3.4); Lymphocytes % (auto) 5.8 %; Mean Corpuscular Hemoglobin 31.1 pg (25.0-34.0); Mean Corpuscular Hgb Conc 32.7 g/dL (32.0-36.0); Mean Corpuscular Volume 95.1 fL (80.0-100.0); Mean Platelet Volume 10.1 fL (9.4-12.4); Monocytes % (auto) 9.1 %; Platelet Count 265 K/uL (130-400); RDW Standard Deviation 45.5 fL (36.4-46.3); Red Blood Count 4.92 M/uL (4.63-6.08); White Blood Count 15.36 K/ul (4.8-10.8)
[2022-02-02 05:26] LABS: Prothrombin Time 11.1 Seconds (9.0-12.0)
[2022-02-02] MEDS ORDERED: PIPERACILLIN/TAZOBACTAM 4.5 GM/120 ML BAG IV ONE (05:29)
[2022-02-02] MEDS ORDERED: methylPREDNISolone 125 MG/2 ML VIAL IV STA (05:29)
[2022-02-02] MEDS ORDERED: SODIUM CHLORIDE 0.9% 1000ML 1,000 ML IV ONE (05:29)
[2022-02-02 05:30] LABS: Base Excess VBG 3.1 mEq/L; HCO3 VBG 32 mmol/L; Oxygen Saturation VBG < 60.0 %; PCO2 VBG 70 mmHg (38-50); PO2 VBG 31 mmHg; pH VBG 7.27 (7.36-7.41)
--- NOTE | 2022-02-02 05:35 | Emergency Department Note ---
History of Present Illness General Chief complaint: Shortness of Breath/Dyspnea Stated complaint: BREATHING DIFFICULTY Time Seen by Provider: 02/02/22 05:20 History of Present Illness 61-year-old male presents via EMS has a history of COPD requires 2 to 3 L of oxygen at home and he called EMS for increased shortness of breath cough with yellow sputum for the past day. Patient states that he increased his oxygen 5 L at home. Patient denies chest pain denies leg pain denies nausea vomiting. States generalized weakness. There are no other mitigating or alleviating factors Home Medications Medication Instructions Recorded Confirmed Type albuterol sulfate 90 mcg/actuation 2 puff inhalation QID PRN 06/15/18 01/04/20 History aerosol inhaler (Ventolin HFA) Shortness Of Breath Or Wheezing aspirin 81 mg tablet,delayed 81 mg PO QAM 06/15/18 01/04/20 History release multivitamin-ferrous 1 tab PO QAM 06/15/18 01/04/20 History fumarate-folic acid 18 mg-400 mcg tablet (Centrum) rosuvastatin 20 mg tablet (Crestor) 20 mg PO QAM 06/15/18 01/04/20 History albuterol sulfate 2.5 mg/3 mL 2.5 mg inhalation Q4 PRN Shortness 04/26/19 01/04/20 History (0.083 %) solution for nebulization Of Breath fluticasone fur. 100 mcg-umeclid 1 inh inhalation HS 04/26/19 01/04/20 History 62.5 mcg-vilant 25 mcg inhalat.powder (Trelegy Ellipta) Allergies Allergy/AdvReac Type Severity Reaction Status Date / Time No Known Allergies Allergy Verified 01/04/20 08:03 Past Med/Surg History Medical History (Updated 02/02/22 @ 06:08 by Liang Jung DO) COPD (chronic obstructive pulmonary disease) inhaler/nebulizer/oxygen Hyperlipidemia On home oxygen therapy 2L N/C hs and prn Surgical History History of arthroscopy of right shoulder History of bronchoscopy History of colonoscopy with polypectomy History of mandibular surgery History of tooth extraction all teeth Family History Other No family history of adverse response to anesthesia No significant family history Social History Smoking Status: Former smoker Tobacco Type: Cigarettes Cigarettes Per Day: 10 a day; Second Hand Exposure: Yes (parents smoked/ smokes); Hx Alcohol Use: No Hx Substance Use: Yes (a couple times a week) Last Used Substance: Days (ago) Preferred Language: Romansh Communication Ability: Effective Child Life Assistant Required: No Beliefs That Will Affect Care: None marital status: Current Living Situation: Spouse current occupational status: unemployed and disabled Feels Safe at Home: Yes Assistive Devices: Denture - Upper, Denture - Lower and Oxygen - at Night Review of Systems A total of 10 systems reviewed and were otherwise negative Constitutional: no fever Respiratory: + cough and + dyspnea Cardiovascular: no chest pain Physical Exam Vital Signs Vital Signs - 24 hr 02/02/22 04:49 02/02/22 05:08 02/02/22 05:25 Temperature 36.9 C Temperature Source Oral Pulse Rate 149 H 146 H Pulse Rate from SpO2 Sensor Pulse Rhythm Regular Pulse Strength Normal Respiratory Rate 28 H 38 H Respiratory Effort / Characteristics Accessory Muscle Use Labored Pursed Lip Retracting Short of Breath Spontaneous Accessory Muscle Use Labored Short of Breath Accessory Muscle Use Labored Short of Breath Tripoding Respiratory Depth Retractive Respiratory Pattern Rapid/Shallow Tachypnea Regular Blood Pressure 120/48 L Blood Pressure Mean 72 Blood Pressure Position Sitting Pulse Oximetry 100 99 Oxygen Delivery Method BiPAP Fraction of Inspired Oxygen 40 Sepsis Recent Fever Within 48 Hours Yes Sepsis New/Unexplained Change in Mental Status No Sepsis Action Taken by Nursing Physician Notified 02/02/22 05:26 02/02/22 05:30 02/02/22 05:30 Temperature Temperature Source Pulse Rate 145 H 138 H Pulse Rate from SpO2 Sensor 144 H 139 H Pulse Rhythm Pulse Strength Respiratory Rate 36 H 34 H Respiratory Effort / Characteristics Respiratory Depth Respiratory Pattern Blood Pressure 120/101 H Blood Pressure Mean 107 Blood Pressure Position Pulse Oximetry 99 97 Oxygen Delivery Method Fraction of Inspired Oxygen Sepsis Recent Fever Within 48 Hours Sepsis New/Unexplained Change in Mental Status Sepsis Action Taken by Nursing 02/02/22 05:45 02/02/22 06:00 Temperature Temperature Source Pulse Rate 135 H 132 H Pulse Rate from SpO2 Sensor 135 H 132 H Pulse Rhythm Pulse Strength Respiratory Rate 28 H 28 H Respiratory Effort / Characteristics Respiratory Depth Respiratory Pattern Blood Pressure 142/91 H 124/89 Blood Pressure Mean 108 100 Blood Pressure Position Pulse Oximetry 97 99 Oxygen Delivery Method Fraction of Inspired Oxygen Sepsis Recent Fever Within 48 Hours Sepsis New/Unexplained Change in Mental Status Sepsis Action Taken by Nursing GENERAL: Patient is awake alert in no acute distress patient is resting comfortably and showing no signs of anxiety; patient is on BiPAP speaking in full sentences with BiPAP on in no distress currently EYES: The conjunctivae are clear. The pupils are round and reactive. EARS, NOSE, MOUTH AND THROAT: The nose is without any evidence of any deformity. Mucous membranes are moist. Tongue is midline. NECK: The neck is nontender and supple RESPIRATORY: Initially had increased work of breathing and was tripoding was placed on BiPAP by the nursing staff patient has decreased diminished lung sounds bilaterally CARDIOVASCULAR: Tachycardic GASTROINTESTINAL: The abdomen is soft. Abdomen is nontender. PELVIS: The Pelvis is stable. No tenderness to palpation is noted. BACK: No midline tenderness or or step-off noted range of motion in flexion extension as well as rotation no signs of muscle spasm noted MUSCULOSKELETAL/EXTREMITIES: There is no evidence of gross deformity full range of motion is noted in the hips and shoulders. SKIN: There is no obvious evidence of any rash. There are no petechiae, pallor or cyanosis noted. NEUROLOGIC: Patient is awake alert and oriented x3 strength is symmetric Course Reevaluation(s) Reevaluation #1: Patient was started on BiPAP and was able to tolerate it very well and speak in full sentences that it was slowly weaned. Patient was empirically started on IV antibiotics as well as Solu-Medrol. Patient is much improved on repeat examination at 6 AM in comparison to the patient's arrival Time: 06:08 Consultations Consultation #1: Case was discussed with the [facility] hospitalist for admission Time: 06:08 Administered Medications Discontinued Medications Acetaminophen (Acetaminophen 500 Mg Tab) 1,000 mg PO NOW STA Stop: 02/02/22 06:19 Last Admin: 02/02/22 06:32 Dose: 1,000 mg Documented By: EDIN Sodium Chloride (Nss 1000ml) 1,000 mls @ 999 mls/hr IV .Q1H1M ONE Stop: 02/02/22 06:29 Last Admin: 02/02/22 06:10 Dose: 999 mls/hr Documented By: EDIN Piperacillin Sod/Tazobactam Sod (Zosyn) 4.5 gm in 120 mls @ 240 mls/hr IV NOW ONE Stop: 02/02/22 05:58 Last Admin: 02/02/22 06:09 Dose: 240 mls/hr Documented By: EDIN Methylprednisolone (Methylprednisolone 125 Mg/2 Ml Vial) 60 mg IV NOW STA Stop: 02/02/22 05:30 Last Admin: 02/02/22 06:09 Dose: 60 mg Documented By: EDIN Critical Care Time Critical Care Time: Yes Total Critical Care Time: 35 I have personally spent greater than 35 minutes of critical care time in the direct management of this patient. This includes bedside care, interpretation of diagnostic studies, and testing, discussion with consultants, patient, and family members, and other required patient management activities. These minutes are in excess of all separately billable procedures. Medical Decision Making Medical Records Attestation: I reviewed the patient's medical records. Home Medications Current Medication List: was personally reviewed by me Laboratory Data Attestation: I reviewed the patient's lab results. Result diagrams: 02/02/22 05:06 02/02/22 05:06 Lab Results 02/02/22 02/02/22 02/02/22 Range/Units 05:06 05:06 05:06 WBC 15.36 H (4.8-10.8) K/ul RBC 4.92 (4.63-6.08) M/uL Hgb 15.3 (14.0-18.0) g/dl Hct 46.8 (40.1-51.0) % MCV 95.1 (80.0-100.0) fL MCH 31.1 (25.0-34.0) pg MCHC 32.7 (32.0-36.0) g/dL RDW Std Deviation 45.5 (36.4-46.3) fL RDW Coeff of Lashanda 13.0 (11.5-14.5) % Plt Count 265 (130-400) K/uL MPV 10.1 (9.4-12.4) fL Immature Gran % (Auto) 0.4 % Neut % (Auto) 84.0 % Lymph % (Auto) 5.8 % [place] % (Auto) 9.1 % Eos % (Auto) 0.2 % Baso % (Auto) 0.5 % Neut # (Auto) 12.90 H (1.4-6.5) K/uL Lymph # (Auto) 0.89 L (1.2-3.4) K/uL [place] # (Auto) 1.40 H (0.24-0.82) K/uL Eos # (Auto) 0.03 (0-0.50) K/uL Baso # (Auto) 0.08 (0-0.2) K/uL Immature Gran # (Auto) 0.06 H (0.00-0.02) K/uL PT 11.1 (9.0-12.0) Seconds INR 1.0 (0.9-1.1) VBG pH (7.36-7.41) VBG pCO2 (38-50) mmHg VBG pO2 mmHg VBG HCO3 mmol/L VBG O2 Saturation % VBG Base Excess mEq/L Sodium 138 (136-145) mmol/L Potassium 4.4 (3.5-5.1) mmol/L Chloride 99 (98-107) mmol/L Carbon Dioxide 29 (21-32) mmol/L Anion Gap 10 (3-11) BUN 12 (6-23) mg/dl Creatinine 0.93 (0.6-1.4) mg/dl Est Cr Clr Drug Dosing 78.0 ml/min Est GFR ( Amer) 102.3 ml/min Est GFR (Non-Af Amer) 88.3 ml/min BUN/Creatinine Ratio 12.9 (10-20) Glucose 134 H (70-99(Fasting)) mg/dl Lactate (0.4-2.0) mmol/L Calcium 9.8 (8.5-10.1) mg/dl Magnesium 2.1 (1.7-2.4) mg/dl Total Bilirubin 0.5 (0.2-1.0) mg/dl AST 13 (13-39) U/L ALT 16 (7-52) U/L Alkaline Phosphatase 84 (34-104) U/L Troponin I High Sens 7.5 (0-20) pg/ml B-Natriuretic Peptide (0-100) pg/ml Total Protein 8.3 (6.0-8.3) gm/dl Albumin 4.7 (3.4-5.0) gm/dl Globulin 3.6 (2.5-4.0) gm/dl Albumin/Globulin Ratio 1.3 (0.9-2) SARS-CoV-2, RNA, NAAT (NEGATIVE) 02/02/22 02/02/22 02/02/22 Range/Units 05:15 05:15 06:09 WBC (4.8-10.8) K/ul RBC (4.63-6.08) M/uL Hgb (14.0-18.0) g/dl Hct (40.1-51.0) % MCV (80.0-100.0) fL MCH (25.0-34.0) pg MCHC (32.0-36.0) g/dL RDW Std Deviation (36.4-46.3) fL RDW Coeff of Lashanda (11.5-14.5) % Plt Count (130-400) K/uL MPV (9.4-12.4) fL Immature Gran % (Auto) % Neut % (Auto) % Lymph % (Auto) % [place] % (Auto) % Eos % (Auto) % Baso % (Auto) % Neut # (Auto) (1.4-6.5) K/uL Lymph # (Auto) (1.2-3.4) K/uL [place] # (Auto) (0.24-0.82) K/uL Eos # (Auto) (0-0.50) K/uL Baso # (Auto) (0-0.2) K/uL Immature Gran # (Auto) (0.00-0.02) K/uL PT (9.0-12.0) Seconds INR (0.9-1.1) VBG pH 7.27 L (7.36-7.41) VBG pCO2 70 H (38-50) mmHg VBG pO2 31 mmHg VBG HCO3 32 mmol/L VBG O2 Saturation < 60.0 % VBG Base Excess 3.1 mEq/L Sodium (136-145) mmol/L Potassium (3.5-5.1) mmol/L Chloride (98-107) mmol/L Carbon Dioxide (21-32) mmol/L Anion Gap (3-11) BUN (6-23) mg/dl Creatinine (0.6-1.4) mg/dl Est Cr Clr Drug Dosing ml/min Est GFR ( Amer) ml/min Est GFR (Non-Af Amer) ml/min BUN/Creatinine Ratio (10-20) Glucose (70-99(Fasting)) mg/dl Lactate 1.6 (0.4-2.0) mmol/L Calcium (8.5-10.1) mg/dl Magnesium (1.7-2.4) mg/dl Total Bilirubin (0.2-1.0) mg/dl AST (13-39) U/L ALT (7-52) U/L Alkaline Phosphatase (34-104) U/L Troponin I High Sens (0-20) pg/ml B-Natriuretic Peptide 29 (0-100) pg/ml Total Protein (6.0-8.3) gm/dl Albumin (3.4-5.0) gm/dl Globulin (2.5-4.0) gm/dl Albumin/Globulin Ratio (0.9-2) SARS-CoV-2, RNA, NAAT (NEGATIVE) 02/02/22 Range/Units 06:20 WBC (4.8-10.8) K/ul RBC (4.63-6.08) M/uL Hgb (14.0-18.0) g/dl Hct (40.1-51.0) % MCV (80.0-100.0) fL MCH (25.0-34.0) pg MCHC (32.0-36.0) g/dL RDW Std Deviation (36.4-46.3) fL RDW Coeff of Lashanda (11.5-14.5) % Plt Count (130-400) K/uL MPV (9.4-12.4) fL Immature Gran % (Auto) % Neut % (Auto) % Lymph % (Auto) % [place] % (Auto) % Eos % (Auto) % Baso % (Auto) % Neut # (Auto) (1.4-6.5) K/uL Lymph # (Auto) (1.2-3.4) K/uL [place] # (Auto) (0.24-0.82) K/uL Eos # (Auto) (0-0.50) K/uL Baso # (Auto) (0-0.2) K/uL Immature Gran # (Auto) (0.00-0.02) K/uL PT (9.0-12.0) Seconds INR (0.9-1.1) VBG pH (7.36-7.41) VBG pCO2 (38-50) mmHg VBG pO2 mmHg VBG HCO3 mmol/L VBG O2 Saturation % VBG Base Excess mEq/L Sodium (136-145) mmol/L Potassium (3.5-5.1) mmol/L Chloride (98-107) mmol/L Carbon Dioxide (21-32) mmol/L Anion Gap (3-11) BUN (6-23) mg/dl Creatinine (0.6-1.4) mg/dl Est Cr Clr Drug Dosing ml/min Est GFR ( Amer) ml/min Est GFR (Non-Af Amer) ml/min BUN/Creatinine Ratio (10-20) Glucose (70-99(Fasting)) mg/dl Lactate (0.4-2.0) mmol/L Calcium (8.5-10.1) mg/dl Magnesium (1.7-2.4) mg/dl Total Bilirubin (0.2-1.0) mg/dl AST (13-39) U/L ALT (7-52) U/L Alkaline Phosphatase (34-104) U/L Troponin I High Sens (0-20) pg/ml B-Natriuretic Peptide (0-100) pg/ml Total Protein (6.0-8.3) gm/dl Albumin (3.4-5.0) gm/dl Globulin (2.5-4.0) gm/dl Albumin/Globulin Ratio (0.9-2) SARS-CoV-2, RNA, NAAT NEGATIVE (NEGATIVE) Imaging Data Attestation: I personally reviewed and interpreted this imaging study as follows: My Impression: Chest x-ray interpreted by me negative for infiltrate positive for COPD changes Radiologist's Impression: Chest X-Ray 02/02/22 05:07 XR chest 1V portable CLINICAL HISTORY: Dyspnea. COMPARISON STUDY: Chest CT August 29, 2016. Chest radiograph July 22, 2018. FINDINGS: Lung volumes are normal. Emphysema is better depicted on prior chest CT. Lungs are clear. There is no pneumothorax or pleural effusion. Cardiac size is normal. Mediastinal contours are normal. There is no evidence for pulmonary edema. IMPRESSION: No acute cardiopulmonary findings. ACT 112: Negative or not required by law. Electronically signed by: Andrew Ivan M.D. 02/02/2022 6:51 AM ECG Data Attestation: I personally reviewed and interpreted this ECG as follows: Additional Comments: EKG interpreted by me sinus tachycardia rate of 136 normal intervals normal axis no obvious ST segment elevation or depression MDM Narrative Medical decision making differential diagnosis includes COPD exacerbation pneumonia bronchitis upper respiratory tract infection COVID. Plan is to check labs EKG chest x-ray, started on BiPAP, give IV Solu-Medrol, give IV antibiotics empirically, check VBG Patient was evaluated for COPD exacerbation, respiratory distress, initially was started on BiPAP, improved greatly and BiPAP was weaned off. Patient has an elevated white blood cell count has symptoms suggestive of pneumonia. I do not suspect acute coronary syndrome or pulmonary embolism at this time. Patient was given empiric IV antibiotics and Solu-Medrol. The case was discussed with the [facility] hospitalist for admission for COPD exacerbation. Impression & Plan Acute exacerbation of chronic obstructive airways disease, Acute respiratory distress, Acute respiratory failure with hypoxia and hypercarbia Discharge Plan Visit Data Chief Complaint: Shortness of Breath/Dyspnea Stated Complaint: BREATHING DIFFICULTY ED Provider: Liang Jung Discharge Problem: Acute exacerbation of chronic obstructive airways disease, Acute respiratory distress, Acute respiratory failure with hypoxia and hypercarbia Patient Disposition: Being Evaluated by Hospitalist Forms Stand Alone Forms: My [facility] [place] [employer] Prescriptions Prescriptions: No Action aspirin 81 mg Tablet,Delayed Release (Dr/Ec) 81 mg PO QAM albuterol sulfate [Ventolin HFA] 90 mcg/actuation Hfa Aerosol Inhaler 2 puff INHALATION QID PRN (Reason: Shortness Of Breath Or Wheezing) rosuvastatin [Crestor] 20 mg Tablet 20 mg PO QAM Centrum 18-400 mg-mcg Tablet 1 tab PO QAM albuterol sulfate 2.5 mg /3 mL (0.083 %) Solution For Nebulization 2.5 mg INHALATION Q4 PRN (Reason: Shortness Of Breath) Trelegy Ellipta 100-62.5-25 mcg Blister With Device 1 inh INHALATION HS Referrals Referrals: Parveen Roper DO [Primary Care Provider] -
[2022-02-02 05:47] LABS: Albumin Globulin Ratio 1.3 (0.9-2); Albumin Level 4.7 gm/dl (3.4-5.0); BUN Creatinine Ratio 12.9 (10-20); Bilirubin,Total 0.5 mg/dl (0.2-1.0); Calcium 9.8 mg/dl (8.5-10.1); Est GFR (African American) 102.3 ml/min; Est GFR (Non-African American) 88.3 ml/min; Globulin 3.6 gm/dl (2.5-4.0); Magnesium 2.1 mg/dl (1.7-2.4); Potassium 4.4 mmol/L (3.5-5.1); Total Protein 8.3 gm/dl (6.0-8.3)
[2022-02-02 05:48] LABS: Troponin I High Sensitivity 7.5 pg/ml (0-20)
[2022-02-02] MEDS ORDERED: ACETAMINOPHEN 500 MG TAB PO STA (06:18)
--- NOTE | 2022-02-02 06:53 | XRay Report ---
XR chest 1V portable CLINICAL HISTORY: Dyspnea. COMPARISON STUDY: Chest CT August 29, 2016. Chest radiograph July 22, 2018. FINDINGS: Lung volumes are normal. Emphysema is better depicted on prior chest CT. Lungs are clear. T here is no pneumothorax or pleural effusion. Cardiac size is normal. Mediastinal contours are normal. There is no evidence for pulmonary edema. IMPRESSION: No acute cardiopulmonary findings. ACT 112: Negative or not required by law. Electronically signed by: Andrew Ivan M.D. 02/02/2022 6:51 AM
[2022-02-02] MEDS ORDERED: dilTIAZem HCl 5 MG/ML 5 ML VIAL IV STA (06:54)
[2022-02-02] MEDS ORDERED: KETOROLAC 30 MG/ML VIAL IV ONE (06:54)
[2022-02-02] MEDS ORDERED: LACTATED RINGER'S 1,000 ML IV ONE (07:24)
[2022-02-02] MEDS ORDERED: LEVALBUTEROL HCL 1.25 MG/3 ML NEB NEB PRN (09:22)
[2022-02-02] MEDS ORDERED: ACETAMINOPHEN 325 MG TAB PO PRN (09:22)
[2022-02-02] MEDS ORDERED: POLYETHYLENE (MIRALAX) 17 GM PACK PO PRN (09:22)
[2022-02-02] MEDS ORDERED: XOPENEX/ATROVENT 1.25mg/0.5MG NEB COMBO NEB SCH (09:22)
[2022-02-02] MEDS ORDERED: ALBUTEROL HFA 8 GM INHALER INH PRN (09:22)
[2022-02-02] MEDS ORDERED: NITROGLYCERIN SL 0.4 MG/TAB TAB SL PRN (09:22)
[2022-02-02] MEDS: ASPIRIN 81 MG ECTAB PO SCH (10:40)
[2022-02-02] MEDS: FAMOTIDINE 20 MG in SYRINGE 3 ML IV SCH ×2 (10:40→20:46)
[2022-02-02] MEDS: DOXYCYCLINE HYCLATE 100 MG CAP PO SCH ×2 (10:40→20:16)
[2022-02-02] MEDS: ENOXAPARIN INJ 40 MG/0.4 ML SYR SQ SCH (10:41)
[2022-02-02] MEDS: ROSUVASTATIN CALCIUM 20 MG TAB PO SCH (10:41)
[2022-02-02] MEDS: IPRATROPIUM BROMIDE NEB SOLN 0.02% 2.5 ML VIAL INH SCH ×2 (11:23→14:36)
[2022-02-02] MEDS: LEVALBUTEROL 1.25MG/0.5ML NEB INH SCH ×2 (11:23→14:35)
--- NOTE | 2022-02-02 12:40 | History and Physical Report ---
DATE OF ADMISSION: 02/02/2022. CHIEF COMPLAINT: Shortness of breath. HISTORY OF PRESENT ILLNESS: A 61-year-old male with past medical history significant for COPD, bronchiectasis without complication, mild obstructive sleep apnea, history of multiple lung nodules, dyslipidemia, nocturnal hypoxia, right ventricular hypertrophy, history of migraine, history of tobacco abuse, history of abnormal CT of the chest, on home oxygen 2 liters, presents with shortness of breath. The patient says last 2-3 days, feeling more short of breath and having cough with yellowish phlegm and yesterday increased oxygen to 5 liters, but in the night he was getting more short of breath and when he came in, he was tachypneic, and was placed on BiPAP. Currently, he is weaned of BiPAP and back to nasal cannula. Complains of severe headache. No blurred vision, no runny nose, no sore throat. Appetite is down. Denies any fevers, no nausea. Has some abdominal discomfort in the epigastric region and he had a couple of episodes of diarrhea last night. No blood in the stools. Normal bladder movements. No hematuria, no swelling in the legs. ALLERGIES: No known drug allergies. PAST MEDICAL HISTORY: As mentioned above. PAST SURGICAL HISTORY: Colonoscopy, right shoulder repair, right wrist arthroscopy. MEDICATIONS: The patient is on albuterol 2 puffs inhalation q. 4 hours p.r.n., aspirin 81 mg p.o. daily, Centrum Silver 1 tablet p.o. daily, crestor 20 mg p.o. daily, Trelegy Ellipta one inhalation at bedtime. FAMILY HISTORY: Significant for brother had brain cancer; mother had cancer, lung emphysema; father had lung disorder, genitourinary disorder, and Parkinson's disease. SOCIAL HISTORY: Currently single. Quit smoking in June 2021. Prior to that smoked 1 pack a day for 44 years. No alcohol use. No drug use. REVIEW OF SYSTEMS: As per HPI. Rest of the review of systems is negative. PHYSICAL EXAMINATION: GENERAL: The patient is of moderate build, not in acute distress. VITAL SIGNS: Temperature 36.9, pulse 132, respiratory rate 28, blood pressure 124/89, oxygen 99% on nasal cannula. HEENT: Pupils equal, round and reactive to light. Oral mucosa moist. NECK: No JVD, no neck masses. CARDIOVASCULAR: S1 and S2 heard. Tachycardia. No murmurs. RESPIRATORY SYSTEM: Normal AP diameter. No accessory muscle use. Bilateral wheezing heard. No crackles. ABDOMEN: Soft, bowel sounds present, nontender, no distention. CENTRAL NERVOUS SYSTEM: Cranial nerves II-XII grossly intact, nonfocal. EXTREMITIES: No edema, no erythema. LABORATORY DATA: WBC 15.3, hemoglobin 15.3, hematocrit 46.8, platelets 265. PT 11.1, INR 1. Venous blood gas, pH of 7.2, pCO2 of 70. Sodium 138, potassium 4.4, chloride 99, bicarbonate 29, BUN 12, creatinine 0.9, serum glucose 134. Lactate 1.6, calcium 9.8, magnesium 2.1, total bilirubin 0.5, AST 13, ALT 16, alkaline phosphatase 84. Troponin I high sensitivity 7.5. BNP 29. SARS-CoV-2 rapid test negative. IMAGING DATA: Chest x-ray, no acute findings. EKG: Sinus tachycardia at a rate of 136, no significant change was found. ASSESSMENT AND PLAN: This 61-year-old male presents with shortness of breath , chronic obstructive pulmonary disease exacerbation. 1. Chronic obstructive pulmonary disease exacerbation: No obvious signs of infiltrates on chest x-ray, but has leukocytosis. Received Solu-Medrol in the ER. Will continue with IV Solu-Medrol 40 mg t.i.d., nebs around the clock, and p.r.n. p.o. doxycycline. The patient will be closely monitored in the tele floor 2. [id number] respiratory failure: From above.On home oxygen 2 liters was requiring 5 liters at home. Was placed on BiPAP when he came in, currently back on nasal cannula. Will monitor the oxygen saturations. 3. History of hyperlipidemia: On statin. 4. Deep venous thrombosis prophylaxis: Presently on Lovenox. DISPOSITION: Closely monitor in the tele floor. Level 1 full code. Job ID: [id number] [facility]
--- NOTE | 2022-02-02 12:53 | Hospitalist Progress Note ---
Date of Service February 02, 2022 Assessment & Plan (1) Acute respiratory failure with hypoxia and hypercarbia: Plan: - COPD exacerbation with hypercapnia intially - improved with abx, steroids, BiPAP - now on home O2 2L NC and respiratory status improved - continue abx, steroids, duonebs - continue home O2 2L NC (2) COPD (chronic obstructive pulmonary disease): Plan: - increased sputum production, increased oxygen requirements at home, hypercapnea responded to BiPAP - continue doxycycline for 5 days - continue prednisone for 5 days - duonebs q4-->then prn - continue home oxygen supplementation - will monitor for now (3) Diarrhea: Plan: - likely in setting of current illness - no recent abx use - will monitor for resolution - IVF hydration (4) Hyperlipemia: Plan: - continue statin Plan DVT ppx: lovenox Code Status: Full Code Dispo: telemetry Ugo Nicolas MD [facility] Medicine Admission and Anticipated Discharge Date Admission Date: February 02, 2022 Subjective Patient with COPD on home O2 2L NC, bronchiectasis, mild JESUS, h/o multiple lung nodules, HLD presented with 2-3 days of worsening shortness of breath, increased sputum production, and increasing oxygen requirements from his baseline. Being treated for COPD exacerbation. Patient feels much better this morning. Breathing much improved, back on home O2 2L NC. Still with cough, wheezing. Denied abdominal pain, n/v, chest pain, shortness of breath, dysuria. Did endorse diarrhea but not since yesterday prior to admission. Review of Systems Review of Systems: All systems reviewed & are unremarkable except as noted in Subjective Physical Exam Physical Exam: GENERAL: The patient is of moderate build, not in acute distress. HEENT: Pupils equal, round and reactive to light. Oral mucosa moist. NECK: No JVD, no neck masses. CARDIOVASCULAR: S1 and S2 heard. Tachycardia. No murmurs. RESPIRATORY SYSTEM: Normal AP diameter. No accessory muscle use. Bilateral wheezing heard. No crackles. ABDOMEN: Soft, bowel sounds present, nontender, no distention. CENTRAL NERVOUS SYSTEM: Cranial nerves II-XII grossly intact, nonfocal. EXTREMITIES: No edema, no erythema. Results & Data Results & Data ([facility]) Vital Signs (Past 12 Hours) Vital Signs Temp Pulse Pulse Resp BP BP Pulse Ox 02/02/22 10:45 94 H 20 97 02/02/22 10:45 94 H 20 128/82 97 02/02/22 10:30 93 H 22 121/82 97 02/02/22 10:17 101 H 27 H 139/86 97 02/02/22 10:00 97 H 29 H 93 02/02/22 10:00 133/80 02/02/22 09:45 96 H 19 108/79 95 02/02/22 09:30 87 21 127/76 95 02/02/22 09:15 96 H 25 H 132/83 94 02/02/22 10:56 02/02/22 10:42 92 H 121/72 97 02/02/22 09:00 93 H 23 129/81 96 02/02/22 08:15 133/74 02/02/22 08:00 103 H 24 133/74 98 02/02/22 08:00 142/80 H 02/02/22 07:30 122/81 02/02/22 07:00 116 H 26 H 130/74 100 02/02/22 09:02 95 H 20 99 02/02/22 09:02 99 02/02/22 06:00 132 H 28 H 124/89 99 02/02/22 05:45 135 H 28 H 142/91 H 97 02/02/22 05:30 138 H 34 H 97 02/02/22 05:30 120/101 H 02/02/22 05:26 145 H 36 H 99 02/02/22 05:08 146 H 38 H 99 02/02/22 04:49 36.9 C 149 H 28 H 120/48 L 100 O2 Del Method O2 Flow Rate FiO2 02/02/22 10:45 02/02/22 10:45 02/02/22 10:30 02/02/22 10:17 02/02/22 10:00 02/02/22 10:00 02/02/22 09:45 02/02/22 09:30 02/02/22 09:15 02/02/22 10:56 Nasal Cannula 2 02/02/22 10:42 2 02/02/22 09:00 Nasal Cannula 3 02/02/22 08:15 02/02/22 08:00 Nasal Cannula 3 02/02/22 08:00 02/02/22 07:30 02/02/22 07:00 Nasal Cannula 3 02/02/22 09:02 Nasal Cannula 3 02/02/22 09:02 Nasal Cannula 3 02/02/22 06:00 02/02/22 05:45 02/02/22 05:30 02/02/22 05:30 02/02/22 05:26 02/02/22 05:08 40 02/02/22 04:49 BiPAP Diagnostic Findings Laboratory Results WBC 15.36 K/ul (4.8-10.8) H 02/02/22 05:06 RBC 4.92 M/uL (4.63-6.08) 02/02/22 05:06 Hgb 15.3 g/dl (14.0-18.0) 02/02/22 05:06 Hct 46.8 % (40.1-51.0) 02/02/22 05:06 MCV 95.1 fL (80.0-100.0) 02/02/22 05:06 MCH 31.1 pg (25.0-34.0) 02/02/22 05:06 MCHC 32.7 g/dL (32.0-36.0) 02/02/22 05:06 RDW Std Deviation 45.5 fL (36.4-46.3) 02/02/22 05:06 RDW Coeff of Lashanda 13.0 % (11.5-14.5) 02/02/22 05:06 Plt Count 265 K/uL (130-400) 02/02/22 05:06 MPV 10.1 fL (9.4-12.4) 02/02/22 05:06 Immature Gran % (Auto) 0.4 % 02/02/22 05:06 Neut % (Auto) 84.0 % 02/02/22 05:06 Lymph % (Auto) 5.8 % 02/02/22 05:06 [place] % (Auto) 9.1 % 02/02/22 05:06 Eos % (Auto) 0.2 % 02/02/22 05:06 Baso % (Auto) 0.5 % 02/02/22 05:06 Neut # (Auto) 12.90 K/uL (1.4-6.5) H 02/02/22 05:06 Lymph # (Auto) 0.89 K/uL (1.2-3.4) L 02/02/22 05:06 [place] # (Auto) 1.40 K/uL (0.24-0.82) H 02/02/22 05:06 Eos # (Auto) 0.03 K/uL (0-0.50) 02/02/22 05:06 Baso # (Auto) 0.08 K/uL (0-0.2) 02/02/22 05:06 Immature Gran # (Auto) 0.06 K/uL (0.00-0.02) H 02/02/22 05:06 PT 11.1 Seconds (9.0-12.0) 02/02/22 05:06 INR 1.0 (0.9-1.1) 02/02/22 05:06 VBG pH 7.27 (7.36-7.41) L 02/02/22 05:15 VBG pCO2 70 mmHg (38-50) H 02/02/22 05:15 VBG pO2 31 mmHg 02/02/22 05:15 VBG HCO3 32 mmol/L 02/02/22 05:15 VBG O2 Saturation < 60.0 % 02/02/22 05:15 VBG Base Excess 3.1 mEq/L 02/02/22 05:15 Sodium 138 mmol/L (136-145) 02/02/22 05:06 Potassium 4.4 mmol/L (3.5-5.1) 02/02/22 05:06 Chloride 99 mmol/L (98-107) 02/02/22 05:06 Carbon Dioxide 29 mmol/L (21-32) 02/02/22 05:06 Anion Gap 10 (3-11) 02/02/22 05:06 BUN 12 mg/dl (6-23) 02/02/22 05:06 Creatinine 0.93 mg/dl (0.6-1.4) 02/02/22 05:06 Est Cr Clr Drug Dosing 78.0 ml/min 02/02/22 05:06 Est GFR ( Amer) 102.3 ml/min 02/02/22 05:06 Est GFR (Non-Af Amer) 88.3 ml/min 02/02/22 05:06 BUN/Creatinine Ratio 12.9 (10-20) 02/02/22 05:06 Glucose 134 mg/dl (70-99(Fasting)) H 02/02/22 05:06 Lactate 1.6 mmol/L (0.4-2.0) 02/02/22 06:09 Calcium 9.8 mg/dl (8.5-10.1) 02/02/22 05:06 Magnesium 2.1 mg/dl (1.7-2.4) 02/02/22 05:06 Total Bilirubin 0.5 mg/dl (0.2-1.0) 02/02/22 05:06 AST 13 U/L (13-39) 02/02/22 05:06 ALT 16 U/L (7-52) 02/02/22 05:06 Alkaline Phosphatase 84 U/L (34-104) 02/02/22 05:06 Troponin I High Sens 7.5 pg/ml (0-20) 02/02/22 05:06 B-Natriuretic Peptide 29 pg/ml (0-100) 02/02/22 05:15 Total Protein 8.3 gm/dl (6.0-8.3) 02/02/22 05:06 Albumin 4.7 gm/dl (3.4-5.0) 02/02/22 05:06 Globulin 3.6 gm/dl (2.5-4.0) 02/02/22 05:06 Albumin/Globulin Ratio 1.3 (0.9-2) 02/02/22 05:06 SARS-CoV-2, RNA, NAAT NEGATIVE (NEGATIVE) 02/02/22 06:20 Impressions Chest X-Ray 02/02/22 05:07 XR chest 1V portable CLINICAL HISTORY: Dyspnea. COMPARISON STUDY: Chest CT August 29, 2016. Chest radiograph July 22, 2018. FINDINGS: Lung volumes are normal. Emphysema is better depicted on prior chest CT. Lungs are clear. There is no pneumothorax or pleural effusion. Cardiac size is normal. Mediastinal contours are normal. There is no evidence for pulmonary edema. IMPRESSION: No acute cardiopulmonary findings. ACT 112: Negative or not required by law. Electronically signed by: Andrew Ivan M.D. 02/02/2022 6:51 AM Medications Administered Current Inpatient Medications Acetaminophen (Acetaminophen 325 Mg Tab) 650 mg PO Q4H PRN PRN Reason: Pain or Fever Stop: 03/04/22 09:21 Albuterol (Albuterol Hfa 8 Gm Inhaler) 2 puffs INH QID PRN PRN Reason: Shortness Of Breath Or Wheezing Stop: 03/04/22 09:21 Aspirin (Aspirin 81 Mg Ectab) 81 mg PO QAM [facility] Stop: 03/04/22 09:21 Last Admin: 02/02/22 10:40 Dose: 81 mg Doxycycline Hyclate (Doxycycline Hyclate 100 Mg Cap) 100 mg PO BID [facility] Stop: 02/09/22 09:21 Last Admin: 02/02/22 10:40 Dose: 100 mg Enoxaparin Sodium (Enoxaparin Inj 40 Mg/0.4 Ml Syr) 40 mg SQ Q24H [facility] Stop: 03/04/22 09:59 Last Admin: 02/02/22 10:41 Dose: 40 mg Fluticasone Furoate (Fluticasone Furoate 100mcg 14 Puffs/Inhaler) 1 puffs INH HS [facility] Stop: 03/04/22 20:59 Famotidine 20 mg/ Syringe 5 mls @ 2.5 mls/min IV Q12 [facility] Stop: 03/04/22 09:21 Last Admin: 02/02/22 10:40 Dose: 2.5 mls/min Methylprednisolone 40 mg/ (Syringe) 0.64 mls @ 1.5 mls/min IV Q8 [facility] Stop: 02/03/22 01:59 Ipratropium [place] (Ipratropium [place] Neb Soln 0.02% 2.5 Ml Vial) 0.5 mg INH Q6R [facility] Stop: 03/04/22 09:21 Last Admin: 02/02/22 11:23 Dose: Not Given Levalbuterol HCl (Levalbuterol 1.25mg/0.5ml Neb) 1.25 mg INH Q6R [facility] Stop: 03/04/22 09:21 Last Admin: 02/02/22 11:23 Dose: Not Given Levalbuterol HCl (Levalbuterol Hcl 1.25 Mg/3 Ml Neb) 1.25 mg NEB Q2H PRN; Protocol PRN Reason: Shortness Of Breath Or Wheezing Stop: 03/04/22 09:21 Nitroglycerin (Nitroglycerin Sl 0.4 Mg/Tab Tab) 0.4 mg SL UD PRN PRN Reason: Chest Pain Stop: 03/04/22 09:21 Polyethylene Glycol (Polyethylene (Miralax) 17 Gm Pack) 17 gm PO DAILY PRN PRN Reason: Constipation Stop: 03/04/22 09:21 Prednisone (Prednisone 20 Mg Tab) 40 mg PO DAILY [facility] Stop: 02/06/22 10:59 Rosuvastatin Calcium (Rosuvastatin Calcium 20 Mg Tab) 20 mg PO QAM [facility] Stop: 03/04/22 09:21 Last Admin: 02/02/22 10:41 Dose: 20 mg Umeclidinium/Vilanterol (Umeclidinium/Vilanterol 62.5/25mcg 7 Puffs/Inhaler) 1 puffs INH HS [facility] Stop: 03/04/22 20:59
[2022-02-02] MEDS ORDERED: IPRATROPIUM BROMIDE NEB SOLN 0.02% 2.5 ML VIAL INH PRN (14:27)
[2022-02-02] MEDS ORDERED: LEVALBUTEROL 1.25MG/0.5ML NEB INH PRN (14:27)
[2022-02-02] MEDS ORDERED: LACTATED RINGER'S 1,000 ML IV SCH (14:30)
[2022-02-02] MEDS: methylPREDNISolone 40 MG in SYRINGE 0 ML IV SCH ×2 (15:17→20:46)
[2022-02-02] MEDS ORDERED: KETOROLAC TROMETHAMINE 15 MG/ML VIAL IV PRN ×2 (15:23→18:15)
[2022-02-02] MEDS ORDERED: oxyCODONE HCL IR 5 MG TAB (IMMEDIATE RELEASE) PO STA (18:15)
[2022-02-02] MEDS ORDERED: KETOROLAC TROMETHAMINE 15 MG/ML VIAL IV ONE (18:45)
[2022-02-02] MEDS: UMECLIDINIUM/VILANTEROL 62.5/25MCG 7 PUFFS/INHALER INH SCH (20:34)
[2022-02-02] MEDS: FLUTICASONE FUROATE 100MCG 14 PUFFS/INHALER INH SCH (20:34)
[2022-02-02] MEDS ORDERED: ALUMINUM/MAGNESIUM/SIMETH (MAALOX MAX) 30 ML UDC PO STA (22:36)
--- NOTE | 2022-02-03 05:13 | Electrocardiogram Report ---
Test Reason : Blood Pressure : / mmHG Vent. Rate : 136 BPM Atrial Rate : 136 BPM P-R Int : 152 ms QRS Dur : 078 ms QT Int : 270 ms P-R-T Axes : 080 062 081 degrees QTc Int : 406 ms Sinus tachycardia Biatrial enlargement Nonspecific T wave abnormality Abnormal ECG When compared with ECG of 22-JUL-2018 13:15, No significant change was found Confirmed by Moncho Logan ([id number]) on 02/03/2022 5:12:51 AM Referred By: Confirmed By:Moncho Logan
[2022-02-03 08:26] LABS: Hematocrit (blood only) 40.9 % (40.1-51.0); Hemoglobin 13.5 g/dl (14.0-18.0); Mean Corpuscular Hemoglobin 30.5 pg (25.0-34.0); Mean Corpuscular Volume 92.5 fL (80.0-100.0); Mean Platelet Volume 10.5 fL (9.4-12.4); Platelet Count 245 K/uL (130-400); RDW Standard Deviation 44.3 fL (36.4-46.3); Red Blood Count 4.42 M/uL (4.63-6.08); White Blood Count 20.14 K/ul (4.8-10.8)
[2022-02-03 08:51] LABS: BUN Creatinine Ratio 18.3 (10-20); Calcium 9.3 mg/dl (8.5-10.1); Creatinine Clr Calc Pharmacy 102.1 ml/min; Est GFR (African American) 117.4 ml/min; Est GFR (Non-African American) 101.3 ml/min; Magnesium 2.1 mg/dl (1.7-2.4); Phosphorus 1.9 mg/dl (2.5-4.9); Potassium 4.2 mmol/L (3.5-5.1)
[2022-02-03] MEDS ORDERED: hydrOXYzine HCl 25 MG TAB PO PRN (08:53)
[2022-02-03] MEDS ORDERED: FLUTICASONE HFA 220 MCG INHALER INH SCH (09:00)
[2022-02-03 09:11] LABS: Basophils # (auto) 0.02 K/uL (0-0.2); Basophils % (auto) 0.1 %; Immature Granulocytes # (auto) 0.11 K/uL (0.00-0.02); Immature Granulocytes % (auto) 0.5 %; Lymphocytes # (auto) 0.81 K/uL (1.2-3.4); Neutrophils % (auto) 90.4 %
[2022-02-03] MEDS: LEVALBUTEROL 1.25MG/0.5ML NEB INH SCH ×3 (09:15→19:15)
[2022-02-03] MEDS: ASPIRIN 81 MG ECTAB PO SCH (09:20)
[2022-02-03] MEDS: ROSUVASTATIN CALCIUM 20 MG TAB PO SCH (09:20)
[2022-02-03] MEDS: FAMOTIDINE 20 MG in SYRINGE 3 ML IV SCH ×2 (09:21→21:28)
[2022-02-03] MEDS: DOXYCYCLINE HYCLATE 100 MG CAP PO SCH ×2 (09:22→21:08)
[2022-02-03] MEDS: ENOXAPARIN INJ 40 MG/0.4 ML SYR SQ SCH (09:22)
[2022-02-03] MEDS ORDERED: SODIUM PHOSPHATE 3 MMOL/1 ML 5 ML VIAL IV STA (10:34)
[2022-02-03] MEDS ORDERED: SODIUM PHOSPHATE 24 MMOL in SODIUM CHLORIDE 0.9% 500 ML IV ONE (10:45)
--- NOTE | 2022-02-03 10:58 | Hospitalist Progress Note ---
Date of Service February 03, 2022 Assessment & Plan (1) Acute respiratory failure with hypoxia and hypercarbia: Plan: - COPD exacerbation with hypercapnia initially - improved with abx, steroids, BiPAP - now on home O2 2L NC and respiratory status improved - continue abx, steroids, duonebs - still with wheezing on exam - continue above treatments - PT/OT - continue home O2 2L NC (2) COPD (chronic obstructive pulmonary disease): Plan: - increased sputum production, increased oxygen requirements at home, hypercapnia responded to BiPAP - continue doxycycline for 5 days - continue prednisone for 5 days - duonebs q4-->then prn - continue home oxygen supplementation - will monitor for now (3) Diarrhea: Plan: - likely in setting of current illness - no recent abx use - will monitor for resolution - s/p IVF hydration (4) Hyperlipemia: Plan: - continue statin Plan DVT ppx: lovenox Code Status: Full Code Dispo: telemetry Ugo Nicolas MD [facility] Medicine Admission and Anticipated Discharge Date Admission Date: February 02, 2022 Subjective Patient with COPD on home O2 2L NC, bronchiectasis, mild JESUS, h/o multiple lung nodules, HLD presented with 2-3 days of worsening shortness of breath, increased sputum production, and increasing oxygen requirements from his baseline. Being treated for COPD exacerbation. Improved and returned to his baseline 2L NC. Patient feels much better this morning. Breathing much improved, back on home O2 2L NC. Still with cough, wheezing. Denied abdominal pain, n/v, chest pain, shortness of breath, dysuria. Did endorse diarrhea last night. Reports did not sleep well last night, asking for something to help him sleep tonight. Review of Systems Review of Systems: All systems reviewed & are unremarkable except as noted in Subjective Physical Exam Physical Exam: GENERAL: The patient is of moderate build, not in acute distress. HEENT: Pupils equal, round and reactive to light. Oral mucosa moist. NECK: No JVD, no neck masses. CARDIOVASCULAR: S1 and S2 heard. Tachycardia. No murmurs. RESPIRATORY SYSTEM: Normal AP diameter. No accessory muscle use.mild Bilateral wheezing heard. No crackles. ABDOMEN: Soft, bowel sounds present, nontender, no distention. CENTRAL NERVOUS SYSTEM: Cranial nerves II-XII grossly intact, nonfocal. EXTREMITIES: No edema, no erythema. Results & Data Results & Data ([facility]) Vital Signs (Past 12 Hours) Vital Signs Temp Pulse Resp BP Pulse Ox O2 Del Method O2 Flow Rate 02/03/22 10:46 36.6 C 88 19 133/80 99 Nasal Cannula 2 02/03/22 09:15 98 H 18 97 Nasal Cannula 0.5 02/03/22 06:14 36.8 C 73 18 145/81 H 97 Nasal Cannula 2 02/03/22 03:27 36.5 C 76 18 132/80 97 Room Air Diagnostic Findings Laboratory Results WBC 20.14 K/ul (4.8-10.8) H 02/03/22 08:03 RBC 4.42 M/uL (4.63-6.08) L 02/03/22 08:03 Hgb 13.5 g/dl (14.0-18.0) L 02/03/22 08:03 Hct 40.9 % (40.1-51.0) 02/03/22 08:03 MCV 92.5 fL (80.0-100.0) 02/03/22 08:03 MCH 30.5 pg (25.0-34.0) 02/03/22 08:03 MCHC 33.0 g/dL (32.0-36.0) 02/03/22 08:03 RDW Std Deviation 44.3 fL (36.4-46.3) 02/03/22 08:03 RDW Coeff of Lashanda 13.0 % (11.5-14.5) 02/03/22 08:03 Plt Count 245 K/uL (130-400) 02/03/22 08:03 MPV 10.5 fL (9.4-12.4) 02/03/22 08:03 Immature Gran % (Auto) 0.5 % 02/03/22 08:03 Neut % (Auto) 90.4 % 02/03/22 08:03 Lymph % (Auto) 4.0 % 02/03/22 08:03 [place] % (Auto) 5.0 % 02/03/22 08:03 Eos % (Auto) 0.0 % 02/03/22 08:03 Baso % (Auto) 0.1 % 02/03/22 08:03 Neut # (Auto) 18.20 K/uL (1.4-6.5) H 02/03/22 08:03 Lymph # (Auto) 0.81 K/uL (1.2-3.4) L 02/03/22 08:03 [place] # (Auto) 1.00 K/uL (0.24-0.82) H 02/03/22 08:03 Eos # (Auto) 0.00 K/uL (0-0.50) 02/03/22 08:03 Baso # (Auto) 0.02 K/uL (0-0.2) 02/03/22 08:03 Immature Gran # (Auto) 0.11 K/uL (0.00-0.02) H 02/03/22 08:03 PT 11.1 Seconds (9.0-12.0) 02/02/22 05:06 INR 1.0 (0.9-1.1) 02/02/22 05:06 VBG pH 7.27 (7.36-7.41) L 02/02/22 05:15 VBG pCO2 70 mmHg (38-50) H 02/02/22 05:15 VBG pO2 31 mmHg 02/02/22 05:15 VBG HCO3 32 mmol/L 02/02/22 05:15 VBG O2 Saturation < 60.0 % 02/02/22 05:15 VBG Base Excess 3.1 mEq/L 02/02/22 05:15 Sodium 140 mmol/L (136-145) 02/03/22 08:03 Potassium 4.2 mmol/L (3.5-5.1) 02/03/22 08:03 Chloride 105 mmol/L (98-107) 02/03/22 08:03 Carbon Dioxide 30 mmol/L (21-32) 02/03/22 08:03 Anion Gap 5 (3-11) 02/03/22 08:03 BUN 13 mg/dl (6-23) 02/03/22 08:03 Creatinine 0.71 mg/dl (0.6-1.4) 02/03/22 08:03 Est Cr Clr Drug Dosing 102.1 ml/min 02/03/22 08:03 Est GFR ( Amer) 117.4 ml/min 02/03/22 08:03 Est GFR (Non-Af Amer) 101.3 ml/min 02/03/22 08:03 BUN/Creatinine Ratio 18.3 (10-20) 02/03/22 08:03 Glucose 138 mg/dl (70-99(Fasting)) H 02/03/22 08:03 Lactate 1.6 mmol/L (0.4-2.0) 02/02/22 06:09 Calcium 9.3 mg/dl (8.5-10.1) 02/03/22 08:03 Phosphorus 1.9 mg/dl (2.5-4.9) L 02/03/22 08:03 Magnesium 2.1 mg/dl (1.7-2.4) 02/03/22 08:03 Total Bilirubin 0.5 mg/dl (0.2-1.0) 02/02/22 05:06 AST 13 U/L (13-39) 02/02/22 05:06 ALT 16 U/L (7-52) 02/02/22 05:06 Alkaline Phosphatase 84 U/L (34-104) 02/02/22 05:06 Troponin I High Sens 7.5 pg/ml (0-20) 02/02/22 05:06 B-Natriuretic Peptide 29 pg/ml (0-100) 02/02/22 05:15 Total Protein 8.3 gm/dl (6.0-8.3) 02/02/22 05:06 Albumin 4.7 gm/dl (3.4-5.0) 02/02/22 05:06 Globulin 3.6 gm/dl (2.5-4.0) 02/02/22 05:06 Albumin/Globulin Ratio 1.3 (0.9-2) 02/02/22 05:06 SARS-CoV-2, RNA, NAAT NEGATIVE (NEGATIVE) 02/02/22 06:20 Impressions Chest X-Ray 02/02/22 05:07 XR chest 1V portable CLINICAL HISTORY: Dyspnea. COMPARISON STUDY: Chest CT August 29, 2016. Chest radiograph July 22, 2018. FINDINGS: Lung volumes are normal. Emphysema is better depicted on prior chest CT. Lungs are clear. There is no pneumothorax or pleural effusion. Cardiac size is normal. Mediastinal contours are normal. There is no evidence for pulmonary edema. IMPRESSION: No acute cardiopulmonary findings. ACT 112: Negative or not required by law. Electronically signed by: Andrew Ivan M.D. 02/02/2022 6:51 AM Medications Administered Current Inpatient Medications Acetaminophen (Acetaminophen 325 Mg Tab) 650 mg PO Q4H PRN PRN Reason: Pain or Fever Stop: 03/04/22 09:21 Last Admin: 02/02/22 14:26 Dose: 650 mg Albuterol (Albuterol Hfa 8 Gm Inhaler) 2 puffs INH QID PRN PRN Reason: Shortness Of Breath Or Wheezing Stop: 03/04/22 09:21 Aspirin (Aspirin 81 Mg Ectab) 81 mg PO QAM [facility] Stop: 03/04/22 09:21 Last Admin: 02/03/22 09:20 Dose: 81 mg Doxycycline Hyclate (Doxycycline Hyclate 100 Mg Cap) 100 mg PO BID [facility] Stop: 02/09/22 09:21 Last Admin: 02/03/22 09:22 Dose: 100 mg Enoxaparin Sodium (Enoxaparin Inj 40 Mg/0.4 Ml Syr) 40 mg SQ Q24H [facility] Stop: 03/04/22 09:59 Last Admin: 02/03/22 09:22 Dose: 40 mg Fluticasone Furoate (Fluticasone Furoate 100mcg 14 Puffs/Inhaler) 1 puffs INH HS [facility] Stop: 03/04/22 20:59 Last Admin: 02/02/22 20:34 Dose: 1 puffs Hydroxyzine HCl (Hydroxyzine Hcl 25 Mg Tab) 25 mg PO HS PRN PRN Reason: sleep Stop: 03/05/22 08:52 Famotidine 20 mg/ Syringe 5 mls @ 2.5 mls/min IV Q12 [facility] Stop: 03/04/22 09:21 Last Admin: 02/03/22 09:21 Dose: 2.5 mls/min Sodium Phosphate 24 mmol/ (Sodium Chloride) 508 mls @ 88 mls/hr IV ONE ONE Stop: 02/03/22 16:31 Ketorolac Tromethamine (Ketorolac Tromethamine 15 Mg/Ml Vial) 30 mg IV Q6H PRN PRN Reason: Pain Stop: 02/07/22 15:22 Levalbuterol HCl (Levalbuterol 1.25mg/0.5ml Neb) 1.25 mg INH Q6R [facility] Stop: 03/05/22 08:59 Last Admin: 02/03/22 09:15 Dose: 1.25 mg Nitroglycerin (Nitroglycerin Sl 0.4 Mg/Tab Tab) 0.4 mg SL UD PRN PRN Reason: Chest Pain Stop: 03/04/22 09:21 Polyethylene Glycol (Polyethylene (Miralax) 17 Gm Pack) 17 gm PO DAILY PRN PRN Reason: Constipation Stop: 03/04/22 09:21 Prednisone (Prednisone 20 Mg Tab) 40 mg PO DAILY [facility] Stop: 02/06/22 10:59 Rosuvastatin Calcium (Rosuvastatin Calcium 20 Mg Tab) 20 mg PO QAM [facility] Stop: 03/04/22 09:21 Last Admin: 02/03/22 09:20 Dose: 20 mg Umeclidinium/Vilanterol (Umeclidinium/Vilanterol 62.5/25mcg 7 Puffs/Inhaler) 1 puffs INH HS [facility] Stop: 03/04/22 20:59 Last Admin: 02/02/22 20:34 Dose: 1 puffs
[2022-02-03] MEDS: predniSONE 20 MG TAB PO SCH (12:32)
[2022-02-03] MEDS ORDERED: BENZOCAINE 20% (ORAJEL) 11.9 GM TUBE MT PRN (13:29)
[2022-02-03] MEDS: UMECLIDINIUM/VILANTEROL 62.5/25MCG 7 PUFFS/INHALER INH SCH (21:08)
[2022-02-03] MEDS: FLUTICASONE FUROATE 100MCG 14 PUFFS/INHALER INH SCH (21:08)
[2022-02-04] MEDS ORDERED: LEVALBUTEROL HCL 1.25 MG/3 ML NEB INH SCH (07:00)
[2022-02-04 09:05] LABS: Hemoglobin 13.1 g/dl (14.0-18.0); Mean Corpuscular Hemoglobin 30.8 pg (25.0-34.0); Mean Corpuscular Hgb Conc 32.8 g/dL (32.0-36.0); Mean Corpuscular Volume 93.9 fL (80.0-100.0); Mean Platelet Volume 10.5 fL (9.4-12.4); Platelet Count 238 K/uL (130-400); RDW Coefficient of Variation 13.2 % (11.5-14.5); RDW Standard Deviation 45.3 fL (36.4-46.3); Red Blood Count 4.26 M/uL (4.63-6.08); White Blood Count 14.41 K/ul (4.8-10.8)
[2022-02-04] MEDS: ASPIRIN 81 MG ECTAB PO SCH (09:39)
[2022-02-04] MEDS: ROSUVASTATIN CALCIUM 20 MG TAB PO SCH (09:40)
[2022-02-04] MEDS: predniSONE 20 MG TAB PO SCH (09:40)
[2022-02-04] MEDS: FAMOTIDINE 20 MG in SYRINGE 3 ML IV SCH (09:44)
[2022-02-04] MEDS: ENOXAPARIN INJ 40 MG/0.4 ML SYR SQ SCH (09:44)
[2022-02-04 10:01] LABS: Potassium 3.3 mmol/L (3.5-5.1)
[2022-02-04 10:02] LABS: BUN Creatinine Ratio 15.8 (10-20); Calcium 9.1 mg/dl (8.5-10.1); Creatinine Clr Calc Pharmacy 95.4 ml/min; Est GFR (African American) 114.1 ml/min; Est GFR (Non-African American) 98.5 ml/min; Magnesium 2.2 mg/dl (1.7-2.4); Phosphorus 1.6 mg/dl (2.5-4.9)
[2022-02-04] MEDS ORDERED: LEVALBUTEROL HCL 1.25 MG/3 ML NEB INH PRN (10:29)
[2022-02-04] MEDS: DOXYCYCLINE HYCLATE 100 MG CAP PO SCH (10:33)
[2022-02-04] MEDS ORDERED: POTASSIUM PHOS 3 MMOL/1 ML INFUSION IV STA (10:40)
[2022-02-04] MEDS ORDERED: POTASSIUM CHLORIDE CRTAB 20 MEQ TABCR PO STA (10:59)
[2022-02-04] MEDS ORDERED: KETOROLAC 30 MG/ML VIAL IV STA (11:13)
[2022-02-04] MEDS ORDERED: POTASSIUM PHOSPHATE 30 MMOL in DEXTROSE 5% 500 ML IV ONE (11:30)
--- NOTE | 2022-02-04 14:46 | Discharge Summary ---
Date of Service February 04, 2022 Admission HPI Per Admitting Provider A 61-year-old male with past medical history significant for COPD, bronchiectasis without complication, mild obstructive sleep apnea, history of multiple lung nodules, dyslipidemia, nocturnal hypoxia, right ventricular hypertrophy, history of migraine, history of tobacco abuse, history of abnormal CT of the chest, on home oxygen 2 liters, presents with shortness of breath. The patient says last 2-3 days, feeling more short of breath and having cough with yellowish phlegm and yesterday increased oxygen to 5 liters, but in the night he was getting more short of breath and when he came in, he was tachypneic, and was placed on BiPAP. Currently, he is weaned of BiPAP and back to nasal cannula. Complains of severe headache. No blurred vision, no runny nose, no sore throat. Appetite is down. Denies any fevers, no nausea. Has some abdominal discomfort in the epigastric region and he had a couple of episodes of diarrhea last night. No blood in the stools. Normal bladder movements. No hematuria, no swelling in the legs. Admission Exam Per Admitting Provider GENERAL: The patient is of moderate build, not in acute distress. VITAL SIGNS: Temperature 36.9, pulse 132, respiratory rate 28, blood pressure 124/89, oxygen 99% on nasal cannula. HEENT: Pupils equal, round and reactive to light. Oral mucosa moist. NECK: No JVD, no neck masses. CARDIOVASCULAR: S1 and S2 heard. Tachycardia. No murmurs. RESPIRATORY SYSTEM: Normal AP diameter. No accessory muscle use. Bilateral wheezing heard. No crackles. ABDOMEN: Soft, bowel sounds present, nontender, no distention. CENTRAL NERVOUS SYSTEM: Cranial nerves II-XII grossly intact, nonfocal. EXTREMITIES: No edema, no erythema. Principal Diagnosis COPD exacerbation Discharge Exam GENERAL: The patient is of moderate build, not in acute distress. HEENT: Pupils equal, round and reactive to light. Oral mucosa moist. NECK: No JVD, no neck masses. CARDIOVASCULAR: S1 and S2 heard. Tachycardia. No murmurs. RESPIRATORY SYSTEM: Normal AP diameter. No accessory muscle use.mild Bilateral wheezing heard. No crackles. ABDOMEN: Soft, bowel sounds present, nontender, no distention. CENTRAL NERVOUS SYSTEM: Cranial nerves II-XII grossly intact, nonfocal. EXTREMITIES: No edema, no erythema. Discharge Data Allergies Allergy/AdvReac Type Severity Reaction Status Date / Time No Known Allergies Allergy Verified 01/04/20 08:03 Consultations 02/02/22 06:00 ED Decision to Admit Stat Hospital Course (1) Acute respiratory failure with hypoxia and hypercarbia: - COPD exacerbation with hypercapnia initially - improved with abx, steroids, BiPAP - now on home O2 2L NC and respiratory status improved - continue abx, steroids, duonebs - mildly wheezing on exam but at baseline - PT/OT - return home on home O2 - continue home O2 2L NC - discharge home on 5 days total of prednisone and 7 days total of doxycycline - PCP follow up on discharge (2) COPD (chronic obstructive pulmonary disease): - increased sputum production, increased oxygen requirements at home, hypercapnia responded to BiPAP - continue doxycycline for 5 days - continue prednisone for 5 days - duonebs q4-->then prn - continue home oxygen supplementation - will monitor for now (3) Diarrhea: - likely in setting of current illness - no recent abx use - will monitor for resolution - s/p IVF hydration (4) Hyperlipemia: - continue statin Plan DVT ppx: lovenox Code Status: Full Code Dispo: telemetry Ugo Nicolas MD [facility] Medicine Total Time Total Time Spent Total Time Spent (In Minutes): 21 Total Time Includes: Examination of the Patient, Discharge Planning and Medication Reconciliation Discharge Plan Discharge Items Patient Disposition: Home - Self-Care Reason For Visit: SOB, COPD EX Discharge Diagnosis: COPD exacerbation Activity: Resume your previous activity Non-emergency contact: Primary Care Provider and Elevating Grader Operator Call non-emergency contact if: you have any medication questions and your symptoms worsen Follow-up/Referrals: Edelmira Cavanaugh MD [Outside Practitioners] - 02/07/22 11:00 am (Date & Time 02/07/2022 11:00 AM Provider Edelmira Cavanaugh MD Department General Internal Medicine [facility] ) Diet: Heart Healthy Diet Texture: Easy to Chew Addtl Attending Provider Instructions: You were admitted for exacerbation of your COPD and started on steroids and antibiotics as well as breathing treatments. You needed more oxygen than your at home use of 2L of oxygen by Nasal canula but were returned to your normal baseline oxygen needs. You continued to improve and you were ready for discharge back home with follow up with your Primary Care doctor. Pending Studies at Discharge: No Stand-Alone Forms: My [facility], Smoking Cessation Medications and DC Order Prescriptions: New doxycycline hyclate 100 mg Capsule 100 mg PO BID Qty: 12 0RF prednisone 20 mg Tablet 40 mg PO DAILY Qty: 6 0RF Robitussin Cough-Chest Tom DM 10-200 mg capsule 1 tab-cap PO Q8H PRN (Reason: cough) Qty: 7 0RF Continued aspirin 81 mg Tablet,Delayed Release (Dr/Ec) 81 mg PO QAM albuterol sulfate [Ventolin HFA] 90 mcg/actuation Hfa Aerosol Inhaler 2 puff INHALATION QID PRN (Reason: Shortness Of Breath Or Wheezing) rosuvastatin [Crestor] 20 mg Tablet 20 mg PO QAM Centrum 18-400 mg-mcg Tablet 1 tab PO QAM albuterol sulfate 2.5 mg /3 mL (0.083 %) Solution For Nebulization 2.5 mg INHALATION Q4 PRN (Reason: Shortness Of Breath) Trelegy Ellipta 100-62.5-25 mcg Blister With Device 1 inh INHALATION HS Discharge Orders: Discharge Order (Routine); Ordered 02/04/22 Ordered By: Ugo Nicolas Admission Data Admit Date/Time: 02/02/22 06:59 Attending Provider: Ugo Nicolas Admit Provider: Ugo Nicolas Primary Care Provider: Parveen Roper Other Providers: Ankit Hernandez
== END 2022-02-04 18:11 | disposition home or self-care (01) | DRG 189 ==
LOC: ED 04:55 → EDINP 06:59 → 2S 13:16

== ENCOUNTER 2022-02-09 02:27 | Inpatient (IN) ==
[2022-02-09] MEDS ORDERED: ALBUT/IPRATROP 3MG/0.5MG NEB 3 ML VIAL ONE (02:39)
[2022-02-09 03:05] LABS: Basophils # (auto) 0.05 K/uL (0-0.2); Basophils % (auto) 0.3 %; Eosinophils # (auto) 0.23 K/uL (0-0.50); Eosinophils % (auto) 1.2 %; Hematocrit (blood only) 46.1 % (40.1-51.0); Hemoglobin 15.1 g/dl (14.0-18.0); Immature Granulocytes # (auto) 0.51 K/uL (0.00-0.02); Immature Granulocytes % (auto) 2.6 %; Lymphocytes % (auto) 11.5 %; Mean Corpuscular Hemoglobin 30.6 pg (25.0-34.0); Mean Corpuscular Hgb Conc 32.8 g/dL (32.0-36.0); Mean Corpuscular Volume 93.3 fL (80.0-100.0); Mean Platelet Volume 10.6 fL (9.4-12.4); Monocytes # (auto) 2.47 K/uL (0.24-0.82); Monocytes % (auto) 12.4 %; Neutrophils # (auto) 14.42 K/uL (1.4-6.5); Platelet Count 334 K/uL (130-400); RDW Coefficient of Variation 12.6 % (11.5-14.5); RDW Standard Deviation 43.3 fL (36.4-46.3); Red Blood Count 4.94 M/uL (4.63-6.08); White Blood Count 19.98 K/ul (4.8-10.8)
--- NOTE | 2022-02-09 03:18 | Emergency Department Note ---
History of Present Illness General Chief complaint: Shortness of Breath/Dyspnea Time Seen by Provider: 02/09/22 02:44 History of Present Illness Maximum Pain Intensity: 9 61-year-old male presents emergency department with a history of shortness of breath recent admission for COPD exacerbation and pneumonia. Patient states that he finished antibiotics yesterday. Patient states increased shortness of breath over the past 24 hours he called EMS because of this. Patient states cough cold congestion he states generalized malaise weakness and diarrhea. There are no other mitigating or alleviating factors Patient was given albuterol and Atrovent as well as Solu-Medrol by EMS prior to arrival Home Medications Medication Instructions Recorded Confirmed Type albuterol sulfate 90 mcg/actuation 2 puff inhalation QID PRN 06/15/18 02/09/22 History aerosol inhaler (Ventolin HFA) Shortness Of Breath Or Wheezing aspirin 81 mg tablet,delayed 81 mg PO QAM 06/15/18 02/09/22 History release multivitamin-ferrous 1 tab PO QAM 06/15/18 02/09/22 History fumarate-folic acid 18 mg-400 mcg tablet (Centrum) rosuvastatin 20 mg tablet (Crestor) 20 mg PO QAM 06/15/18 02/09/22 History albuterol sulfate 2.5 mg/3 mL 2.5 mg inhalation Q4 PRN Shortness 04/26/19 02/09/22 History (0.083 %) solution for nebulization Of Breath fluticasone fur. 100 mcg-umeclid 1 inh inhalation HS 04/26/19 02/09/22 History 62.5 mcg-vilant 25 mcg inhalat.powder (Trelegy Ellipta) dextromethorphan-guaifenesin 10 1 tab-cap PO Q8H PRN cough #7 caps 02/04/22 02/09/22 Rx mg-200 mg capsule (Robitussin Cough-Chest Congestion DM) doxycycline hyclate 100 mg capsule 100 mg PO BID #12 caps 02/04/22 02/09/22 Rx prednisone 20 mg tablet 40 mg PO DAILY #6 tabs 02/04/22 02/09/22 Rx Allergies Allergy/AdvReac Type Severity Reaction Status Date / Time No Known Allergies Allergy Verified 02/09/22 02:49 Past Med/Surg History Medical History COPD (chronic obstructive pulmonary disease) inhaler/nebulizer/oxygen Hyperlipidemia On home oxygen therapy 2L N/C hs and prn Surgical History History of arthroscopy of right shoulder History of bronchoscopy History of colonoscopy with polypectomy History of mandibular surgery History of tooth extraction all teeth Family History Other No family history of adverse response to anesthesia No significant family history Social History Smoking Status: Former smoker Tobacco Type: Cigarettes Cigarettes Per Day: 40; Second Hand Exposure: Yes (parents smoked/ smokes); Hx Alcohol Use: No Hx Substance Use: No Preferred Language: Estonian Communication Ability: Effective [employer]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 Beliefs That Will Affect Care: None marital status: Current Living Situation: Spouse current occupational status: unemployed and disabled Feels Safe at Home: Yes Assistive Devices: Oxygen - Continuous Review of Systems A total of 10 systems reviewed and were otherwise negative Constitutional: no fever Respiratory: + cough and + dyspnea Cardiovascular: no chest pain Gastrointestinal: + diarrhea/loose stools Physical Exam Vital Signs Vital Signs - 24 hr 02/09/22 02:35 02/09/22 02:42 02/09/22 02:43 Temperature 36.7 C Temperature Source Oral Pulse Rate 137 H Pulse Rate from SpO2 Sensor Respiratory Rate 30 H Respiratory Effort / Characteristics Spontaneous Short of Breath SOB on Exertion Short of Breath Blood Pressure 133/82 Blood Pressure Mean 99 Pulse Oximetry 96 96 Oxygen Delivery Method Nasal Cannula Nasal Cannula Oxygen Flow Rate 6 6 Sepsis Recent Fever Within 48 Hours No Sepsis New/Unexplained Change in Mental Status No Sepsis Action Taken by Nursing Physician Notified 02/09/22 02:59 02/09/22 03:29 02/09/22 02:35 Temperature Temperature Source Pulse Rate Pulse Rate from SpO2 Sensor Respiratory Rate Respiratory Effort / Characteristics Pursed Lip Short of Breath Blood Pressure 133/82 Blood Pressure Mean 99 Pulse Oximetry 95 96 Oxygen Delivery Method Nasal Cannula Nasal Cannula Oxygen Flow Rate 6 Sepsis Recent Fever Within 48 Hours Sepsis New/Unexplained Change in Mental Status Sepsis Action Taken by Nursing 02/09/22 02:36 02/09/22 02:40 02/09/22 02:51 Temperature Temperature Source Pulse Rate 138 H 138 H 130 H Pulse Rate from SpO2 Sensor 138 H 139 H 131 H Respiratory Rate 38 H 38 H 33 H Respiratory Effort / Characteristics Blood Pressure Blood Pressure Mean Pulse Oximetry 95 96 97 Oxygen Delivery Method Oxygen Flow Rate Sepsis Recent Fever Within 48 Hours Sepsis New/Unexplained Change in Mental Status Sepsis Action Taken by Nursing 02/09/22 03:00 02/09/22 03:10 02/09/22 03:23 Temperature Temperature Source Pulse Rate 137 H 128 H Pulse Rate from SpO2 Sensor 136 H 134 H 107 H Respiratory Rate 42 H 24 Respiratory Effort / Characteristics Blood Pressure Blood Pressure Mean Pulse Oximetry 96 98 90 Oxygen Delivery Method Oxygen Flow Rate Sepsis Recent Fever Within 48 Hours Sepsis New/Unexplained Change in Mental Status Sepsis Action Taken by Nursing 02/09/22 03:30 Temperature Temperature Source Pulse Rate 142 H Pulse Rate from SpO2 Sensor 141 H Respiratory Rate 32 H Respiratory Effort / Characteristics Blood Pressure Blood Pressure Mean Pulse Oximetry 98 Oxygen Delivery Method Oxygen Flow Rate Sepsis Recent Fever Within 48 Hours Sepsis New/Unexplained Change in Mental Status Sepsis Action Taken by Nursing GENERAL: Patient is awake alert in no acute distress patient is resting comfortably and showing no signs of anxiety EYES: The conjunctivae are clear. The pupils are round and reactive. EARS, NOSE, MOUTH AND THROAT: The nose is without any evidence of any deformity. Mucous membranes are moist. Tongue is midline. NECK: The neck is nontender and supple. RESPIRATORY: Increased respiratory rate, speaking in full sentences however, rhonchi bilaterally CARDIOVASCULAR: Tachycardia noted there no murmurs rubs or gallops normal S1 normal S2. GASTROINTESTINAL: The abdomen is soft. Abdomen is nontender. PELVIS: The Pelvis is stable. No tenderness to palpation is noted. BACK: No midline tenderness or or step-off noted range of motion in flexion extension as well as rotation no signs of muscle spasm noted MUSCULOSKELETAL/EXTREMITIES: There is no evidence of gross deformity full range of motion is noted in the hips and shoulders. SKIN: There is no obvious evidence of any rash. There are no petechiae, pallor or cyanosis noted. NEUROLOGIC: Patient is awake alert and oriented x3 strength is symmetric Course Reevaluation(s) Reevaluation #1: Patient is on 5 L has slight increased work of breathing however speaking in full sentences Time: 03:55 Consultations [facility] Time: 03:55 Medical Decision Making Medical Records Attestation: I reviewed the patient's medical records. Home Medications Current Medication List: was personally reviewed by me Laboratory Data Attestation: I reviewed the patient's lab results. Result diagrams: 02/09/22 02:45 02/09/22 02:45 Lab Results 02/09/22 02/09/22 02/09/22 Range/Units 02:00 02:45 02:45 WBC 19.98 H (4.8-10.8) K/ul RBC 4.94 (4.63-6.08) M/uL Hgb 15.1 (14.0-18.0) g/dl Hct 46.1 (40.1-51.0) % MCV 93.3 (80.0-100.0) fL MCH 30.6 (25.0-34.0) pg MCHC 32.8 (32.0-36.0) g/dL RDW Std Deviation 43.3 (36.4-46.3) fL RDW Coeff of Lashanda 12.6 (11.5-14.5) % Plt Count 334 (130-400) K/uL MPV 10.6 (9.4-12.4) fL Immature Gran % (Auto) 2.6 % Neut % (Auto) 72.0 % Lymph % (Auto) 11.5 % [place] % (Auto) 12.4 % Eos % (Auto) 1.2 % Baso % (Auto) 0.3 % Neut # (Auto) 14.42 H (1.4-6.5) K/uL Lymph # (Auto) 2.30 (1.2-3.4) K/uL [place] # (Auto) 2.47 H (0.24-0.82) K/uL Eos # (Auto) 0.23 (0-0.50) K/uL Baso # (Auto) 0.05 (0-0.2) K/uL Immature Gran # (Auto) 0.51 H (0.00-0.02) K/uL Sodium 138 (136-145) mmol/L Potassium 3.9 (3.5-5.1) mmol/L Chloride 96 L (98-107) mmol/L Carbon Dioxide 29 (21-32) mmol/L Anion Gap 13 H (3-11) BUN 17 (6-23) mg/dl Creatinine 0.75 (0.6-1.4) mg/dl Est Cr Clr Drug Dosing 85.6 ml/min Est GFR ( Amer) 114.8 ml/min Est GFR (Non-Af Amer) 99.0 ml/min BUN/Creatinine Ratio 22.7 H (10-20) Glucose 130 H (70-99(Fasting)) mg/dl Lactate 1.8 (0.4-2.0) mmol/L Calcium 9.5 (8.5-10.1) mg/dl Magnesium 2.1 (1.7-2.4) mg/dl Total Bilirubin 0.8 (0.2-1.0) mg/dl Direct Bilirubin 0.2 (0-0.2) mg/dl AST 8 L (13-39) U/L ALT 17 (7-52) U/L Alkaline Phosphatase 73 (34-104) U/L Troponin I High Sens 6.4 (0-20) pg/ml Total Protein 7.7 (6.0-8.3) gm/dl Albumin 4.0 (3.4-5.0) gm/dl SARS-CoV-2, RNA, NAAT (NEGATIVE) 02/09/22 Range/Units 03:08 WBC (4.8-10.8) K/ul RBC (4.63-6.08) M/uL Hgb (14.0-18.0) g/dl Hct (40.1-51.0) % MCV (80.0-100.0) fL MCH (25.0-34.0) pg MCHC (32.0-36.0) g/dL RDW Std Deviation (36.4-46.3) fL RDW Coeff of Lashanda (11.5-14.5) % Plt Count (130-400) K/uL MPV (9.4-12.4) fL Immature Gran % (Auto) % Neut % (Auto) % Lymph % (Auto) % [place] % (Auto) % Eos % (Auto) % Baso % (Auto) % Neut # (Auto) (1.4-6.5) K/uL Lymph # (Auto) (1.2-3.4) K/uL [place] # (Auto) (0.24-0.82) K/uL Eos # (Auto) (0-0.50) K/uL Baso # (Auto) (0-0.2) K/uL Immature Gran # (Auto) (0.00-0.02) K/uL Sodium (136-145) mmol/L Potassium (3.5-5.1) mmol/L Chloride (98-107) mmol/L Carbon Dioxide (21-32) mmol/L Anion Gap (3-11) BUN (6-23) mg/dl Creatinine (0.6-1.4) mg/dl Est Cr Clr Drug Dosing ml/min Est GFR ( Amer) ml/min Est GFR (Non-Af Amer) ml/min BUN/Creatinine Ratio (10-20) Glucose (70-99(Fasting)) mg/dl Lactate (0.4-2.0) mmol/L Calcium (8.5-10.1) mg/dl Magnesium (1.7-2.4) mg/dl Total Bilirubin (0.2-1.0) mg/dl Direct Bilirubin (0-0.2) mg/dl AST (13-39) U/L ALT (7-52) U/L Alkaline Phosphatase (34-104) U/L Troponin I High Sens (0-20) pg/ml Total Protein (6.0-8.3) gm/dl Albumin (3.4-5.0) gm/dl SARS-CoV-2, RNA, NAAT NEGATIVE (NEGATIVE) Imaging Data Attestation: I personally reviewed and interpreted this imaging study as follows: My Impression: Chest x-ray interpreted by me COPD changes ECG Data Attestation: I personally reviewed and interpreted this ECG as follows: Additional Comments: EKG interpreted by me sinus tachycardia rate of [address] segment elevation or depression normal axis normal intervals poor baseline MDM Narrative Medical decision making differential diagnosis COPD, pneumonia, asthma, bronchitis, upper respiratory tract infection, dehydration. Plan is to check labs, chest x-ray EKG, observe Patient was evaluated for increased shortness of breath I suspect that this is a COPD exacerbation, the patient received a DuoNeb and Solu-Medrol prior to arrival. Patient denies current chest pain I do not suspect pulmonary embolism. Patient will be admitted for further evaluation and treatment. Impression & Plan Acute exacerbation of chronic obstructive airways disease Discharge Plan Visit Data Chief Complaint: Shortness of Breath/Dyspnea ED Provider: Liang Jung Discharge Problem: Acute exacerbation of chronic obstructive airways disease Patient Disposition: Being Evaluated by Hospitalist Forms Stand Alone Forms: My [facility] Prescriptions Prescriptions: No Action aspirin 81 mg Tablet,Delayed Release (Dr/Ec) 81 mg PO QAM albuterol sulfate [Ventolin HFA] 90 mcg/actuation Hfa Aerosol Inhaler 2 puff INHALATION QID PRN (Reason: Shortness Of Breath Or Wheezing) rosuvastatin [Crestor] 20 mg Tablet 20 mg PO QAM Centrum 18-400 mg-mcg Tablet 1 tab PO QAM albuterol sulfate 2.5 mg /3 mL (0.083 %) Solution For Nebulization 2.5 mg INHALATION Q4 PRN (Reason: Shortness Of Breath) Trelegy Ellipta 100-62.5-25 mcg Blister With Device 1 inh INHALATION HS doxycycline hyclate 100 mg Capsule 100 mg PO BID Qty: 12 0RF prednisone 20 mg Tablet 40 mg PO DAILY Qty: 6 0RF Robitussin Cough-Chest Tom DM 10-200 mg capsule 1 tab-cap PO Q8H PRN (Reason: cough) Qty: 7 0RF Referrals Referrals: Parveen Roper DO [Primary Care Provider] -
[2022-02-09 03:38] LABS: BUN Creatinine Ratio 22.7 (10-20); Bilirubin Direct 0.2 mg/dl (0-0.2); Bilirubin,Total 0.8 mg/dl (0.2-1.0); Calcium 9.5 mg/dl (8.5-10.1); Creatinine Clr Calc Pharmacy 85.6 ml/min; Est GFR (African American) 114.8 ml/min; Magnesium 2.1 mg/dl (1.7-2.4); Potassium 3.9 mmol/L (3.5-5.1); Total Protein 7.7 gm/dl (6.0-8.3); Troponin I High Sensitivity 6.4 pg/ml (0-20)
[2022-02-09] MEDS ORDERED: LACTATED RINGER'S 1,000 ML IV ONE (03:57)
[2022-02-09] MEDS ORDERED: MAGNESIUM SULFATE / D5W 1 GM/100 ML BAG IV ONE (04:03)
[2022-02-09] MEDS ORDERED: traMADol HCL 50 MG TABLET PO STA (04:48)
[2022-02-09 04:50] LABS: Base Excess ABG 5.3 mEq/L (-9-1.8); HCO3 ABG 32 mmol/L (19-24); Oxygen Saturation ABG 99.4 % (90-95); PCO2 ABG 54 mmHg (35-46); PO2 ABG 104 mmHg (80-95); pH ABG 7.38 (7.35-7.45)
[2022-02-09 04:52] LABS: Allen Test Pos (Pos)
[2022-02-09 05:06] LABS: Partial Thromboplastin Time 26.2 Seconds (21.0-31.0)
[2022-02-09] MEDS ORDERED: LEVALBUTEROL 1.25MG/0.5ML NEB INH STA (05:10)
[2022-02-09] MEDS ORDERED: IPRATROPIUM BROMIDE NEB SOLN 0.02% 2.5 ML VIAL INH STA (05:10)
[2022-02-09] MEDS ORDERED: XOPENEX/ATROVENT 1.25mg/0.5MG NEB COMBO NEB STA (05:10)
--- NOTE | 2022-02-09 05:12 | History & Physical Report ---
Date of Service February 09, 2022 Assessment & Plan (1) Respiratory failure, acute and chronic: Plan: hx chronic respiratory failure secondary to COPD/bronchiectasis Secondary to protracted COPD exacerbation Rule out pulmonary embolism given pleuritic back pain complaints Diarrhea rule out C. difficile mild JESUS (CPAP noncompliance) hyperlipidemia on statin Rx Steroid-induced hyperglycemia rule out DM past tobacco abuse. Medical telemetry Supplemental O2 Continue doxycycline, nebs RTC, steroid course CT chest PE study Pulmonary consult if without improvement Stool C. difficile Check hemoglobin A1c DVT prophylaxis. Lovenox subcu Full code Total critical care time was 35 minutes. Text document was generated using [employer] voice recognition software. It may contain grammatical or spelling errors. Kindly contact undersigned for clarification of any documentation item in question. History of Present Illness Chief Complaint: Weakness, worsening shortness of breath, diarrhea Primary Care Provider: Dr. Cavanaugh History obtained from patient and records. Medical history significant for chronic respiratory failure secondary to COPD/bronchiectasis, mild JESUS (CPAP noncompliant), hyperlipidemia, past tobacco abuse. Last confinement February 02February 04, 2022 for respiratory failure secondary to COPD exacerbation. Patient improved on doxycycline and prednisone Rx. Patient not fully comfortable with breathing on discharge. A few days after being home, patient started feeling worse again. Diarrhea without abdominal pain. Worsening cough, shortness of breath with pleuritic back pain complaints despite compliance with medications. Symptoms worse on ambulation. Patient denies aspiration. Solu-Medrol and neb treatment administered by EMS prior to arrival at the ER. Medical History as above Surgical History : Right wrist surgery, right shoulder surgery Family History : Brain cancer, COPD, Parkinson's disease Personal/Social history : Past tobacco abuse, no EtOH intake Allergies Allergy/AdvReac Type Severity Reaction Status Date / Time No Known Allergies Allergy Verified 02/09/22 02:49 Home Medications Medication Instructions Recorded Confirmed Type albuterol sulfate 90 mcg/actuation 2 puff inhalation QID PRN 06/15/18 02/09/22 History aerosol inhaler (Ventolin HFA) Shortness Of Breath Or Wheezing aspirin 81 mg tablet,delayed 81 mg PO QAM 06/15/18 02/09/22 History release multivitamin-ferrous 1 tab PO QAM 06/15/18 02/09/22 History fumarate-folic acid 18 mg-400 mcg tablet (Centrum) rosuvastatin 20 mg tablet (Crestor) 20 mg PO QAM 06/15/18 02/09/22 History albuterol sulfate 2.5 mg/3 mL 2.5 mg inhalation Q4 PRN Shortness 04/26/19 02/09/22 History (0.083 %) solution for nebulization Of Breath fluticasone fur. 100 mcg-umeclid 1 inh inhalation HS 04/26/19 02/09/22 History 62.5 mcg-vilant 25 mcg inhalat.powder (Trelegy Ellipta) dextromethorphan-guaifenesin 10 1 tab-cap PO Q8H PRN cough #7 caps 02/04/22 02/09/22 Rx mg-200 mg capsule (Robitussin Cough-Chest Congestion DM) doxycycline hyclate 100 mg capsule 100 mg PO BID #12 caps 02/04/22 02/09/22 Rx prednisone 20 mg tablet 40 mg PO DAILY #6 tabs 02/04/22 02/09/22 Rx Past Med/Surg History Medical History COPD (chronic obstructive pulmonary disease) inhaler/nebulizer/oxygen Hyperlipidemia On home oxygen therapy 2L N/C hs and prn Surgical History History of arthroscopy of right shoulder History of bronchoscopy History of colonoscopy with polypectomy History of mandibular surgery History of tooth extraction all teeth Family History Other No family history of adverse response to anesthesia No significant family history Social History Smoking Status: Never smoker Tobacco Type: Cigarettes Cigarettes Per Day: 40; Second Hand Exposure: Yes (parents smoked/ smokes); Hx Alcohol Use: No Hx Substance Use: No Preferred Language: Gibraltarian Communication Ability: Effective 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 Beliefs That Will Affect Care: None marital status: Current Living Situation: Spouse current occupational status: unemployed and disabled Other Information That Helps Us Care for You: No Feels Safe at Home: Yes Safety Concerns: Feels Safe At This Time Assistive Devices: Denture - Upper, Denture - Lower, Glasses, Nebulizer and Oxygen - Continuous Review of Systems Review of Systems: As per HPI, all other systems reviewed and negative Physical Exam Physical Exam: GENERAL: uncomfortable, respiratory distress SKIN: Normal color, warm HEENT: [place] palpebral conjunctivae, no ptosis, dry buccal mucosa to kindly place NECK : Supple, no tenderness CHEST : Decreased breath sounds, diffuse expiratory wheezes, no tenderness HEART : Tachycardic, no obvious murmurs ABDOMEN: Some distention, nontender EXTREMITIES : Minimal LE swelling, no LE tenderness, no other conspicuous deformities noted NEUROLOGIC : Coherent, no facial asymmetry, no other gross focality Results & Data Results & Data ([facility]) Vital Signs (Past 12 Hours) Vital Signs Temp Pulse Resp BP Pulse Ox O2 Del Method O2 Flow Rate 02/09/22 04:15 Nasal Cannula 02/09/22 03:30 142 H 32 H 98 02/09/22 03:23 90 02/09/22 03:10 128 H 24 98 02/09/22 03:00 137 H 42 H 96 02/09/22 02:51 130 H 33 H 97 02/09/22 02:40 138 H 38 H 96 02/09/22 02:36 138 H 38 H 95 02/09/22 02:35 133/82 02/09/22 03:29 96 Nasal Cannula 02/09/22 02:59 95 Nasal Cannula 6 02/09/22 02:42 96 Nasal Cannula 6 02/09/22 02:35 36.7 C 137 H 30 H 133/82 96 Nasal Cannula 6 Laboratory Results Laboratory Results WBC 19.98 K/ul (4.8-10.8) H 02/09/22 02:45 RBC 4.94 M/uL (4.63-6.08) 02/09/22 02:45 Hgb 15.1 g/dl (14.0-18.0) 02/09/22 02:45 Hct 46.1 % (40.1-51.0) 02/09/22 02:45 MCV 93.3 fL (80.0-100.0) 02/09/22 02:45 MCH 30.6 pg (25.0-34.0) 02/09/22 02:45 MCHC 32.8 g/dL (32.0-36.0) 02/09/22 02:45 RDW Std Deviation 43.3 fL (36.4-46.3) 02/09/22 02:45 RDW Coeff of Lashanda 12.6 % (11.5-14.5) 02/09/22 02:45 Plt Count 334 K/uL (130-400) 02/09/22 02:45 MPV 10.6 fL (9.4-12.4) 02/09/22 02:45 Immature Gran % (Auto) 2.6 % 02/09/22 02:45 Neut % (Auto) 72.0 % 02/09/22 02:45 Lymph % (Auto) 11.5 % 02/09/22 02:45 [place] % (Auto) 12.4 % 02/09/22 02:45 Eos % (Auto) 1.2 % 02/09/22 02:45 Baso % (Auto) 0.3 % 02/09/22 02:45 Neut # (Auto) 14.42 K/uL (1.4-6.5) H 02/09/22 02:45 Lymph # (Auto) 2.30 K/uL (1.2-3.4) 02/09/22 02:45 [place] # (Auto) 2.47 K/uL (0.24-0.82) H 02/09/22 02:45 Eos # (Auto) 0.23 K/uL (0-0.50) 02/09/22 02:45 Baso # (Auto) 0.05 K/uL (0-0.2) 02/09/22 02:45 Immature Gran # (Auto) 0.51 K/uL (0.00-0.02) H 02/09/22 02:45 APTT 26.2 Seconds (21.0-31.0) 02/09/22 04:28 PTT Ratio 1.0 02/09/22 04:28 ABG pH 7.38 (7.35-7.45) 02/09/22 04:34 ABG pCO2 54 mmHg (35-46) H 02/09/22 04:34 ABG pO2 104 mmHg (80-95) H 02/09/22 04:34 ABG HCO3 32 mmol/L (19-24) H 02/09/22 04:34 ABG O2 Saturation 99.4 % (90-95) H 02/09/22 04:34 ABG Base Excess 5.3 mEq/L (-9-1.8) H 02/09/22 04:34 Adriel Test Pos (Pos) 02/09/22 04:34 Oxygen Given 6L 02/09/22 04:34 Sodium 138 mmol/L (136-145) 02/09/22 02:45 Potassium 3.9 mmol/L (3.5-5.1) 02/09/22 02:45 Chloride 96 mmol/L (98-107) L 02/09/22 02:45 Carbon Dioxide 29 mmol/L (21-32) 02/09/22 02:45 Anion Gap 13 (3-11) H 02/09/22 02:45 BUN 17 mg/dl (6-23) 02/09/22 02:45 Creatinine 0.75 mg/dl (0.6-1.4) 02/09/22 02:45 Est Cr Clr Drug Dosing 85.6 ml/min 02/09/22 02:45 Est GFR ( Amer) 114.8 ml/min 02/09/22 02:45 Est GFR (Non-Af Amer) 99.0 ml/min 02/09/22 02:45 BUN/Creatinine Ratio 22.7 (10-20) H 02/09/22 02:45 Glucose 130 mg/dl (70-99(Fasting)) H 02/09/22 02:45 Lactate 1.4 mmol/L (0.4-2.0) 02/09/22 04:28 Calcium 9.5 mg/dl (8.5-10.1) 02/09/22 02:45 Magnesium 2.1 mg/dl (1.7-2.4) 02/09/22 02:45 Total Bilirubin 0.8 mg/dl (0.2-1.0) 02/09/22 02:45 Direct Bilirubin 0.2 mg/dl (0-0.2) 02/09/22 02:45 AST 8 U/L (13-39) L 02/09/22 02:45 ALT 17 U/L (7-52) 02/09/22 02:45 Alkaline Phosphatase 73 U/L (34-104) 02/09/22 02:45 Troponin I High Sens 6.4 pg/ml (0-20) 02/09/22 02:45 Total Protein 7.7 gm/dl (6.0-8.3) 02/09/22 02:45 Albumin 4.0 gm/dl (3.4-5.0) 02/09/22 02:45 Procalcitonin 0.09 ng/ml (0-0.5) 02/09/22 02:45 SARS-CoV-2, RNA, NAAT NEGATIVE (NEGATIVE) 02/09/22 03:08 Diagnostic Findings Chest x-ray chest x-ray as per my interpretation hyperinflation, interstitial infiltrates EKG as per my interpretation :Rate 140, sinus tachycardia, normal axis, T wave abnormalities lateral leads
[2022-02-09] MEDS ORDERED: PROMETHAZINE HCL 6.25 MG in SODIUM CHLORIDE 0.9% 50 ML IV PRN (05:18)
[2022-02-09] MEDS ORDERED: hydrOXYzine HCl 10 MG TAB PO PRN (05:18)
[2022-02-09] MEDS ORDERED: methylPREDNISolone 40 MG in SYRINGE 0 ML IV ONE (05:30)
[2022-02-09] MEDS ORDERED: OPTIRAY 320 500ml IV ONE (05:36)
[2022-02-09] MEDS ORDERED: ACETAMINOPHEN 325 MG TAB PO PRN (06:30)
--- NOTE | 2022-02-09 07:27 | CT Scan Report ---
CT ANGIOGRAPHY OF THE CHEST, PULMONARY EMBOLUS PROTOCOL CLINICAL HISTORY: Shortness of breath, pleuritic back pain COMPARISON STUDY: Lung screening CT August 29, 2016 and chest radiograph performed earlier today. TECHNIQUE: Following IV administration of 110 mL of Optiray, helical axial images of the chest were o btained utilizing the pulmonary embolus protocol. Maximal intensity projections and sagittal and cor onal reformats were viewed on an independent 3D workstation. IV contrast was administered without co mplication. Automated exposure control was utilized for the study. A dose lowering technique was ut ilized adhering to the principles of ALARA. CT DOSE: 301.74 mGy.cm FINDINGS: No pulmonary emboli are identified. There is no thoracic aortic dissection. Size of the he art is normal. There is no pericardial effusion. Prominent mediastinal and hilar lymph nodes are aldo lar to prior CT of August 29, 2016. These are likely benign. There is no pneumothorax or pleural effusio n. Severe upper lobe predominant emphysema is present. Bronchial wall thickening is present. Scattere d irregular nodular opacities throughout the lungs are noted. Tree-in-bud nodules are also present. T here is no lobar consolidation. No pneumothorax or pleural effusion is present. Several hepatic lesio ns are unchanged. These favor cysts. IMPRESSION: 1. No pulmonary emboli identified. 2. Scattered nodular airspace opacities throughout the lungs. The findings favor an infectious proces s such as bronchiolitis/developing bronchopneumonia. Follow-up chest CT in 3 months to ensure resolut ion is recommended. 3. Severe emphysema. 4. Prominent mediastinal and hilar lymph nodes which are similar to prior CT. These are likely benign . ACT 112: Negative or not required by law. Electronically signed by: Andrew Ivan M.D. 02/09/2022 7:25 AM
--- NOTE | 2022-02-09 08:28 | XRay Report ---
XR chest 1V portable CLINICAL HISTORY: Sepsis. COMPARISON STUDY: Chest radiograph February 02, 2022. FINDINGS: Severe emphysema is noted. There is no pneumothorax or pleural effusion. Cardiac size is no rmal. Mediastinal contours are normal. Reticulonodular interstitial thickening is present. IMPRESSION: 1. Reticulonodular interstitial thickening which favors an infectious process. 2. Emphysema. ACT 112: Negative or not required by law. Electronically signed by: Andrew Ivan M.D. 02/09/2022 8:26 AM
[2022-02-09] MEDS: ASPIRIN 81 MG ECTAB PO SCH (08:31)
[2022-02-09] MEDS: FLUTICASONE FUROATE 100MCG 14 PUFFS/INHALER INH SCH (08:31)
[2022-02-09] MEDS: ROSUVASTATIN CALCIUM 20 MG TAB PO SCH (08:31)
[2022-02-09] MEDS: ENOXAPARIN INJ 30 MG/0.3 ML SYR SQ SCH (08:31)
[2022-02-09] MEDS: DOXYCYCLINE HYCLATE 100 MG CAP PO SCH ×2 (08:31→22:16)
[2022-02-09] MEDS: CEROVITE ADV FORMULA TAB PO SCH (08:31)
[2022-02-09] MEDS: UMECLIDINIUM/VILANTEROL 62.5/25MCG 7 PUFFS/INHALER INH SCH (08:32)
[2022-02-09] MEDS: cefTRIAXone SODIUM 2,000 MG in DEXTROSE 5% 50 ML IV SCH (09:02)
[2022-02-09] MEDS: traMADol HCL 50 MG TABLET PO PRN ×2 (09:08→22:17)
[2022-02-09 10:33] LABS: Appearance Urine Clear (Clear); Bacteria Urine Automated Negative (Negative); Bilirubin Urine Negative (Negative); Blood Urine Trace (Negative); Color Urine Yellow; Glucose Urine UA Trace (Negative); Ketones Urine 2+ (Negative); Leukocyte Esterase Urine Negative (Negative); Nitrite Urine Negative (Negative); Protein Urine Trace (Negative); RBC Urine Automated 0-4 /hpf (0-4); Specific Gravity Urine > 1.045 (1.000-1.030); Urobilinogen Urine Negative (Negative)
--- NOTE | 2022-02-09 12:07 | Hospitalist Progress Note ---
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 Of note, he was recently admitted 01/06 - 02/04 for respiratory failure secondary to COPD exacerbation when he was reported to have improvement on doxycycline and prednisone treatment but never felt it was fully resolved per patient, he felt better for few days after discharge and then started feeling worse. He is being managed for the following: Acute on chronic respiratory failure Likely bronchopneumonia Possible protracted COPD exacerbation Rule out PE given pleuritic back pain complaints Sepsis POA: Admitting pulse/RR/WBC elevated, though WBC elevation less reliable due to patient being on steroid. Imaging suggestive of pneumonia. Patient presented with productive cough and associated shortness of breath [see above] WBC elevated, patient afebrile. Admitting CTA chest: No PE. Findings suggestive of developing bronchopneumonia. Continue with doxycycline 02/09 and Rocephin 02/09. Follow-up CT chest in 3 months to ensure resolution. Patient was tachycardic in the morning, heart rate getting better. Patient has been afebrile. Continue with the steroid. Wean down oxygen as tolerated, continue to monitor over telemetry. Diarrhea: 1 episode, no further diarrhea movement. Continue to monitor. Other chronic medical conditions: Mild JESUS/CPAP noncompliance, HLD, past tobacco abuse --->> continue home meds as and when appropriate. DVT prophylaxis: Lovenox subcu Full code Admission and Anticipated Discharge Date Admission Date: February 09, 2022 Subjective Patient seen and examined at bedside as a follow-up of acute on chronic respiratory failure and likely developing bronchopneumonia. 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 Physical Exam Physical Exam: GENERAL: Alert and oriented x3. NAD, on 3L NC O2. HEENT: No pallor, no icterus. Pupils equal, round and reactive to light. Oral mucosa moist. NECK: No JVD, no neck masses. HEART: S1 and S2 heard. tachycardia. No murmur, no gallop. RESPIRATORY SYSTEM: Normal AP diameter. No accessory muscle use. No wheezing, no crackles. decreased breath sounds b/l. ABDOMEN: Soft, bowel sounds present, nontender, no distention. CENTRAL NERVOUS SYSTEM: No facial droop. Speech is clear. Obeys simple commands. Moves extremities. EXTREMITIES: No edema, no erythema seen. Results & Data Results & Data ([facility]) Vital Signs (Past 12 Hours) Vital Signs Temp Pulse Pulse Resp BP BP Pulse Ox 02/09/22 10:59 02/09/22 10:58 109 H 02/09/22 07:53 36.4 C L 99 H 20 137/77 95 02/09/22 06:33 36.3 C L 116 H 24 124/79 95 02/09/22 06:18 117 H 25 H 127/80 97 02/09/22 05:17 02/09/22 04:15 02/09/22 03:30 142 H 32 H 98 02/09/22 03:23 90 02/09/22 03:10 128 H 24 98 02/09/22 03:00 137 H 42 H 96 02/09/22 02:51 130 H 33 H 97 02/09/22 02:40 138 H 38 H 96 02/09/22 02:36 138 H 38 H 95 02/09/22 02:35 133/82 02/09/22 03:29 96 02/09/22 02:59 95 02/09/22 02:42 96 02/09/22 02:35 36.7 C 137 H 30 H 133/82 96 O2 Del Method O2 Flow Rate 02/09/22 10:59 Nasal Cannula 3 02/09/22 10:58 02/09/22 07:53 Nasal Cannula 4 02/09/22 06:33 Nasal Cannula 4.5 02/09/22 06:18 Nasal Cannula 4 02/09/22 05:17 Nasal Cannula 02/09/22 04:15 Nasal Cannula 02/09/22 03:30 02/09/22 03:23 02/09/22 03:10 02/09/22 03:00 02/09/22 02:51 02/09/22 02:40 02/09/22 02:36 02/09/22 02:35 02/09/22 03:29 Nasal Cannula 02/09/22 02:59 Nasal Cannula 6 02/09/22 02:42 Nasal Cannula 6 02/09/22 02:35 Nasal Cannula 6
[2022-02-09] MEDS: IPRATROPIUM BROMIDE NEB SOLN 0.02% 2.5 ML VIAL INH SCH ×2 (12:42→19:38)
[2022-02-09] MEDS: LEVALBUTEROL 1.25MG/0.5ML NEB INH SCH ×2 (12:42→19:40)
[2022-02-09] MEDS ORDERED: XOPENEX/ATROVENT 1.25mg/0.5MG NEB COMBO NEB SCH (13:00)
--- NOTE | 2022-02-09 14:02 | Electrocardiogram Report ---
Test Reason : Blood Pressure : / mmHG Vent. Rate : 134 BPM Atrial Rate : 134 BPM P-R Int : 150 ms QRS Dur : 070 ms QT Int : 276 ms P-R-T Axes : 081 068 091 degrees QTc Int : 412 ms Poor data quality, interpretation may be adversely affected Sinus tachycardia Right atrial enlargement Abnormal ECG When compared with ECG of 02-FEB-2022 05:36, No significant change was found Confirmed by Luis Gonzalez ([id number] on 02/09/2022 2:02:18 PM Referred By: REFERRED SELF Confirmed By:Luis Gonzalez
[2022-02-09] MEDS ORDERED: NON-FORMULARY MEDICATION (Fluticasone-Umeclidin-Vilanter [Trelegy Ellipta] 100-62.5-25 mcg INH SCH (21:00)
[2022-02-09] MEDS: MELATONIN 3 MG TAB PO PRN (22:16)
[2022-02-10] MEDS: LEVALBUTEROL 1.25MG/0.5ML NEB INH SCH ×4 (00:01→19:46)
[2022-02-10] MEDS: IPRATROPIUM BROMIDE NEB SOLN 0.02% 2.5 ML VIAL INH SCH ×4 (00:01→19:46)
[2022-02-10] MEDS: guaiFENesin SUGAR FREE 200 MG/10 ML UDC PO PRN ×3 (00:07→21:22)
[2022-02-10] MEDS ORDERED: MELATONIN 3 MG TAB PO STA (01:35)
[2022-02-10] MEDS: MELATONIN 3 MG TAB PO PRN ×2 (02:00→21:13)
[2022-02-10 07:02] LABS: Estimated Average Glucose 126 mg/dl
[2022-02-10 07:20] LABS: Basophils # (auto) 0.03 K/uL (0-0.2); Basophils % (auto) 0.2 %; Hematocrit (blood only) 38.6 % (40.1-51.0); Hemoglobin 12.8 g/dl (14.0-18.0); Immature Granulocytes # (auto) 0.23 K/uL (0.00-0.02); Immature Granulocytes % (auto) 1.2 %; Lymphocytes # (auto) 1.55 K/uL (1.2-3.4); Lymphocytes % (auto) 8.1 %; Mean Corpuscular Hemoglobin 30.1 pg (25.0-34.0); Mean Corpuscular Hgb Conc 33.2 g/dL (32.0-36.0); Mean Corpuscular Volume 90.8 fL (80.0-100.0); Mean Platelet Volume 10.5 fL (9.4-12.4); Monocytes # (auto) 1.63 K/uL (0.24-0.82); Monocytes % (auto) 8.6 %; Neutrophils # (auto) 15.58 K/uL (1.4-6.5); Neutrophils % (auto) 81.9 %; Platelet Count 320 K/uL (130-400); RDW Coefficient of Variation 12.5 % (11.5-14.5); Red Blood Count 4.25 M/uL (4.63-6.08); White Blood Count 19.02 K/ul (4.8-10.8)
[2022-02-10 07:58] LABS: BUN Creatinine Ratio 20.8 (10-20); Calcium 9.5 mg/dl (8.5-10.1); Creatinine Clr Calc Pharmacy 100.7 ml/min; Est GFR (African American) 116.7 ml/min; Est GFR (Non-African American) 100.7 ml/min; Potassium 4.7 mmol/L (3.5-5.1)
[2022-02-10] MEDS: traMADol HCL 50 MG TABLET PO PRN ×3 (08:57→21:13)
[2022-02-10] MEDS: CEROVITE ADV FORMULA TAB PO SCH (08:58)
[2022-02-10] MEDS: DOXYCYCLINE HYCLATE 100 MG CAP PO SCH ×2 (08:58→21:14)
[2022-02-10] MEDS: ROSUVASTATIN CALCIUM 20 MG TAB PO SCH (08:58)
[2022-02-10] MEDS: ENOXAPARIN INJ 30 MG/0.3 ML SYR SQ SCH (08:58)
[2022-02-10] MEDS: ASPIRIN 81 MG ECTAB PO SCH (08:58)
[2022-02-10] MEDS: predniSONE 20 MG TAB PO SCH (08:58)
[2022-02-10] MEDS: FLUTICASONE FUROATE 100MCG 14 PUFFS/INHALER INH SCH (08:59)
[2022-02-10] MEDS: UMECLIDINIUM/VILANTEROL 62.5/25MCG 7 PUFFS/INHALER INH SCH (08:59)
[2022-02-10] MEDS: cefTRIAXone SODIUM 2,000 MG in DEXTROSE 5% 50 ML IV SCH (08:59)
[2022-02-10] MEDS: BENZONATATE 100 MG CAPSULE PO SCH ×2 (13:01→21:14)
--- NOTE | 2022-02-10 13:12 | Hospitalist Progress Note ---
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 Of note, he was recently admitted 01/06 - 02/04 for respiratory failure secondary to COPD exacerbation when he was reported to have improvement on doxycycline and prednisone treatment but never felt it was fully resolved per patient, he felt better for few days after discharge and then started feeling worse. He is being managed for the following: Acute on chronic respiratory failure Likely bronchopneumonia Possible protracted COPD exacerbation Rule out PE given pleuritic back pain complaints Sepsis POA: Admitting pulse/RR/WBC elevated, though WBC elevation less reliable due to patient being on steroid. Imaging suggestive of pneumonia. Patient presented with productive cough and associated shortness of breath [see above] WBC elevated, patient afebrile. Admitting CTA chest: No PE. Findings suggestive of developing bronchopneumonia. Continue with doxycycline 02/09 and Rocephin 02/09. Follow-up CT chest in 3 months to ensure resolution. Afebrile, WBC wnl. Pt not feeling very well, dry cough overnight Continue with the steroid. Wean down oxygen as tolerated, continue to monitor over telemetry. Likely will need 2 step prior to DC Diarrhea: 1 episode on the day of arrival, no further diarrhea movement. Continue to monitor. Other chronic medical conditions: Mild JESUS/CPAP noncompliance, HLD, past tobacco abuse --->> continue home meds as and when appropriate. DVT prophylaxis: Lovenox subcu Full code Dispo: likely [place]bey on po atb. Admission and Anticipated Discharge Date Admission Date: February 09, 2022 Subjective Patient seen and examined at bedside as a follow-up of acute on chronic respiratory failure and likely developing bronchopneumonia. Patient was lying in bed, on 2 L nasal cannula oxygen, reports not feeling very well, reports having cough overnight, bothered him and was mostly dry. Reports eating okay and moving bowels, does not seem to be in acute distress, no further diarrhea, denies headache or dizziness or chest pain or belly pain or other review of symptoms. Will add christelle sandhu, c/w mucinex. Physical Exam Physical Exam: GENERAL: Alert and oriented x3. NAD, on 2L NC O2. HEENT: No pallor, no icterus. Pupils equal, round and reactive to light. Oral mucosa moist. NECK: No JVD, no neck masses. HEART: S1 and S2 heard. regular rate and rhythm. No murmur, no gallop. RESPIRATORY SYSTEM: Normal AP diameter. No accessory muscle use. No wheezing, no crackles. decreased breath sounds b/l. ABDOMEN: Soft, bowel sounds present, nontender, no distention. CENTRAL NERVOUS SYSTEM: No facial droop. Speech is clear. Obeys simple commands. Moves extremities. EXTREMITIES: No edema, no erythema seen. Results & Data Results & Data ([facility]) Vital Signs (Past 12 Hours) Vital Signs Temp Pulse Pulse Resp BP Pulse Ox O2 Del Method 02/10/22 12:26 78 18 94 Nasal Cannula 02/10/22 12:00 36.5 C 80 18 129/76 95 Nasal Cannula 02/10/22 09:00 Nasal Cannula 02/10/22 08:02 36.6 C 69 18 118/70 95 Nasal Cannula 02/10/22 07:15 74 18 94 Nasal Cannula 02/10/22 07:15 68 02/10/22 04:29 36.6 C 75 20 111/69 95 O2 Flow Rate FiO2 02/10/22 12:26 2 02/10/22 12:00 2 02/10/22 09:00 3 02/10/22 08:02 2 02/10/22 07:15 2 02/10/22 07:15 02/10/22 04:29 2
[2022-02-10] MEDS: ADVANCED PROBIOTIC 1250 MG CAPSULE PO SCH (14:15)
[2022-02-11] MEDS: LEVALBUTEROL 1.25MG/0.5ML NEB INH SCH ×4 (01:01→19:10)
[2022-02-11] MEDS: IPRATROPIUM BROMIDE NEB SOLN 0.02% 2.5 ML VIAL INH SCH ×4 (01:02→19:10)
[2022-02-11 06:59] LABS: Hematocrit (blood only) 39.7 % (40.1-51.0); Hemoglobin 13.1 g/dl (14.0-18.0); Mean Corpuscular Hemoglobin 30.7 pg (25.0-34.0); Mean Platelet Volume 10.3 fL (9.4-12.4); Platelet Count 359 K/uL (130-400); Red Blood Count 4.27 M/uL (4.63-6.08); White Blood Count 18.14 K/ul (4.8-10.8)
[2022-02-11 07:24] LABS: BUN Creatinine Ratio 19.7 (10-20); Calcium 9.2 mg/dl (8.5-10.1); Creatinine Clr Calc Pharmacy 102.1 ml/min; Est GFR (African American) 117.4 ml/min; Est GFR (Non-African American) 101.3 ml/min; Magnesium 2.4 mg/dl (1.7-2.4); Phosphorus 3.8 mg/dl (2.5-4.9); Potassium 3.4 mmol/L (3.5-5.1)
[2022-02-11] MEDS: traMADol HCL 50 MG TABLET PO PRN ×3 (08:13→21:59)
[2022-02-11] MEDS: guaiFENesin SUGAR FREE 200 MG/10 ML UDC PO PRN (08:13)
[2022-02-11] MEDS: DOXYCYCLINE HYCLATE 100 MG CAP PO SCH ×2 (08:13→21:59)
[2022-02-11] MEDS: predniSONE 20 MG TAB PO SCH (08:14)
[2022-02-11] MEDS: ASPIRIN 81 MG ECTAB PO SCH (08:14)
[2022-02-11] MEDS: UMECLIDINIUM/VILANTEROL 62.5/25MCG 7 PUFFS/INHALER INH SCH (08:14)
[2022-02-11] MEDS: ROSUVASTATIN CALCIUM 20 MG TAB PO SCH (08:14)
[2022-02-11] MEDS: CEROVITE ADV FORMULA TAB PO SCH (08:14)
[2022-02-11] MEDS: ENOXAPARIN INJ 30 MG/0.3 ML SYR SQ SCH (08:14)
[2022-02-11] MEDS: FLUTICASONE FUROATE 100MCG 14 PUFFS/INHALER INH SCH (08:14)
[2022-02-11] MEDS: ADVANCED PROBIOTIC 1250 MG CAPSULE PO SCH (08:14)
[2022-02-11] MEDS: BENZONATATE 100 MG CAPSULE PO SCH ×3 (08:15→21:59)
[2022-02-11] MEDS: cefTRIAXone SODIUM 2,000 MG in DEXTROSE 5% 50 ML IV SCH (08:16)
[2022-02-11] MEDS ORDERED: POTASSIUM CHLORIDE CRTAB 20 MEQ TABCR PO STA (08:45)
--- NOTE | 2022-02-11 13:50 | Hospitalist Progress Note ---
Date of Service February 11, 2022 Assessment & Plan (1) Bronchopneumonia: Plan: History of severe COPD He was recently admitted 01/06 - 02/04 for respiratory failure secondary to COPD exacerbation when he was reported to have improvement on doxycycline and prednisone treatment. He never felt it was fully resolved per patient Started to complain more cough and shortness of breath Has bronchopneumonia as per CTA chest. No evidence of pulmonary embolism Has been on intravenous doxycycline and Rocephin. Clinically a little better and will continue current medications Acute on chronic respiratory failure Likely bronchopneumonia Possible protracted COPD exacerbation As above and also has been getting nebulized bronchodilator and steroid Will need 1 or 2 more days to get even better Will give cough medications Sepsis POA: Admitting pulse/RR/WBC elevated, though WBC elevation less reliable due to patient being on steroid. Imaging suggestive of pneumonia. Clinically better Diarrhea: 1 episode on the day of arrival, no further diarrhea movement. Continue to monitor. No more diarrhea Other chronic medical conditions: Mild JESUS/CPAP noncompliance, HLD, past tobacco abuse --->> continue home meds as and when appropriate. DVT prophylaxis: Lovenox subcu Full code Likely discharge in a day or 2 Admission and Anticipated Discharge Date Admission Date: February 09, 2022 Subjective 02/11/2022 The patient was seen and examined in medical telemetry unit He has been complaining of cough and shortness of breath with minimal exertion No fever and or chills, no abdominal pain, nausea and or vomiting Review of Systems Review of Systems: All systems reviewed and are unremarkable except as noted below Physical Exam Physical Exam: Lying in bed with minimal shortness of breath at rest Constitutional: + ill appearing and average body habitus Eyes: PERRL, conjunctivae normal, anicteric sclerae ENMT: external ear and nose normal, oropharynx normal Neck: trachea midline, no thyromegaly Respiratory: no respiratory distress Auscultation: + diminished lung sounds, + crackles (Minimal bibasilar crackles) and + wheezes (Minimal wheezing bilaterally) Cardiovascular: Rate/Rhythm: regular rate, regular rhythm and + tachycardic Heart Sounds: normal S1 and normal S2; no murmur Extremities: no edema Gastrointestinal (Abdomen): Inspection/Auscultation: normal bowel sounds; abdomen not distended Percussion/Palpation: abdomen soft; abdomen nontender Musculoskeletal: No acute arthritis in any joint Neurologic: Alert, awake and oriented x3. No focal sensory or no motor deficit appreciated Lymphatic: no cervical or axillary lymphadenopathy Results & Data Results & Data ([facility]) Vital Signs (Past 12 Hours) Vital Signs Temp Pulse Pulse Resp BP BP Pulse Ox 02/11/22 13:32 106 H 20 96 02/11/22 11:40 36.7 C 94 H 16 152/90 H 94 02/11/22 08:15 02/11/22 08:02 36.6 C 70 16 153/84 H 97 02/11/22 07:35 80 02/11/22 07:11 94 H 18 95 02/11/22 02:56 75 02/11/22 02:56 36.7 C 80 18 119/76 95 O2 Del Method O2 Flow Rate 02/11/22 13:32 Nasal Cannula 2 02/11/22 11:40 Nasal Cannula 2 02/11/22 08:15 Nasal Cannula 2 02/11/22 08:02 Nasal Cannula 2 02/11/22 07:35 02/11/22 07:11 Nasal Cannula 2 02/11/22 02:56 02/11/22 02:56 Nasal Cannula 2 Laboratory Results Short CBC 02/11/22 Range/Units 06:23 WBC 18.14 H (4.8-10.8) K/ul Hgb 13.1 L (14.0-18.0) g/dl Hct 39.7 L (40.1-51.0) % Plt Count 359 (130-400) K/uL BMP 02/11/22 06:23 Sodium 137 Potassium 3.4 L D Chloride 96 L Carbon Dioxide 35 H BUN 14 Creatinine 0.71 Glucose 109 H Calcium 9.2 Medications Administered Current Inpatient Medications Acetaminophen (Acetaminophen 325 Mg Tab) 650 mg PO Q4H PRN PRN Reason: Pain or Fever Stop: 03/11/22 06:29 Aspirin (Aspirin 81 Mg Ectab) 81 mg PO QAM [facility] Stop: 03/11/22 08:59 Last Admin: 02/11/22 08:14 Dose: 81 mg Benzonatate (Benzonatate 100 Mg Capsule) 100 mg PO TID [facility] Stop: 03/12/22 13:59 Last Admin: 02/11/22 13:23 Dose: 100 mg Doxycycline Hyclate (Doxycycline Hyclate 100 Mg Cap) 100 mg PO BID [facility] Stop: 02/16/22 08:59 Last Admin: 02/11/22 08:13 Dose: 100 mg Enoxaparin Sodium (Enoxaparin Inj 30 Mg/0.3 Ml Syr) 30 mg SQ QAM [facility] Stop: 03/11/22 08:59 Last Admin: 02/11/22 08:14 Dose: 30 mg Fluticasone Furoate (Fluticasone Furoate 100mcg 14 Puffs/Inhaler) 1 puffs INH DAILY [facility] Stop: 03/11/22 08:59 Last Admin: 02/11/22 08:14 Dose: 1 puffs Guaifenesin (Guaifenesin Sugar Free 200 Mg/10 Ml Udc) 200 mg PO Q6H PRN PRN Reason: Cough Stop: 03/11/22 23:51 Last Admin: 02/11/22 08:13 Dose: 200 mg Hydroxyzine HCl (Hydroxyzine Hcl 10 Mg Tab) 10 mg PO QID PRN PRN Reason: Anxiety Stop: 03/11/22 05:17 Promethazine HCl 6.25 mg/ (Sodium Chloride) 50.25 mls @ 201 mls/hr IV Q6H PRN PRN Reason: Nausea And Vomiting Stop: 03/11/22 05:17 Ceftriaxone Sodium 2,000 mg/ (Dextrose) 70 mls @ 100 mls/hr IV Q24H [facility]; Protocol Stop: 02/16/22 07:59 Last Infusion: 02/11/22 09:00 Dose: Infused Ipratropium [place] (Ipratropium [place] Neb Soln 0.02% 2.5 Ml Vial) 0.5 mg INH Q6R [facility] Stop: 03/11/22 12:59 Last Admin: 02/11/22 13:31 Dose: 0.5 mg Lactobacillus Acidophilus (Advanced Probiotic 1250 Mg Capsule) 2 cap PO DAILY [facility] Stop: 03/12/22 13:14 Last Admin: 02/11/22 08:14 Dose: 2 cap Levalbuterol HCl (Levalbuterol 1.25mg/0.5ml Neb) 1.25 mg INH Q6R [facility] Stop: 03/11/22 12:59 Last Admin: 02/11/22 13:31 Dose: 1.25 mg Melatonin (Melatonin 3 Mg Tab) 6 mg PO HS PRN PRN Reason: Sleep Stop: 03/11/22 17:38 Last Admin: 02/10/22 21:13 Dose: 6 mg Multivitamins/Minerals (Cerovite Adv Formula Tab) 1 tab PO QAM [facility] Stop: 03/11/22 08:59 Last Admin: 02/11/22 08:14 Dose: 1 tab Prednisone (Prednisone 20 Mg Tab) 40 mg PO DAILY [facility] Stop: 03/12/22 08:59 Last Admin: 02/11/22 08:14 Dose: 40 mg Rosuvastatin Calcium (Rosuvastatin Calcium 20 Mg Tab) 20 mg PO QAM [facility] Stop: 03/11/22 08:59 Last Admin: 02/11/22 08:14 Dose: 20 mg Tramadol HCl (Tramadol Hcl 50 Mg Tablet) 25 - 50 mg PO Q4H PRN PRN Reason: Pain Stop: 03/11/22 05:17 Last Admin: 02/11/22 13:26 Dose: 50 mg Umeclidinium/Vilanterol (Umeclidinium/Vilanterol 62.5/25mcg 7 Puffs/Inhaler) 1 puffs INH DAILY [facility] Stop: 03/11/22 08:59 Last Admin: 02/11/22 08:14 Dose: 1 puffs
[2022-02-12] MEDS: IPRATROPIUM BROMIDE NEB SOLN 0.02% 2.5 ML VIAL INH SCH ×4 (01:14→19:06)
[2022-02-12] MEDS: LEVALBUTEROL 1.25MG/0.5ML NEB INH SCH ×4 (01:14→19:05)
[2022-02-12] MEDS: BENZONATATE 100 MG CAPSULE PO SCH ×3 (08:03→20:06)
[2022-02-12] MEDS: traMADol HCL 50 MG TABLET PO PRN (08:03)
[2022-02-12] MEDS: DOXYCYCLINE HYCLATE 100 MG CAP PO SCH ×2 (08:03→20:06)
[2022-02-12] MEDS: ADVANCED PROBIOTIC 1250 MG CAPSULE PO SCH (08:03)
[2022-02-12] MEDS: ROSUVASTATIN CALCIUM 20 MG TAB PO SCH (08:03)
[2022-02-12] MEDS: CEROVITE ADV FORMULA TAB PO SCH (08:03)
[2022-02-12] MEDS: UMECLIDINIUM/VILANTEROL 62.5/25MCG 7 PUFFS/INHALER INH SCH (08:04)
[2022-02-12] MEDS: ENOXAPARIN INJ 30 MG/0.3 ML SYR SQ SCH (08:04)
[2022-02-12] MEDS: FLUTICASONE FUROATE 100MCG 14 PUFFS/INHALER INH SCH (08:04)
[2022-02-12] MEDS: cefTRIAXone SODIUM 2,000 MG in DEXTROSE 5% 50 ML IV SCH (08:05)
[2022-02-12] MEDS: predniSONE 20 MG TAB PO SCH (09:11)
[2022-02-12] MEDS: ASPIRIN 81 MG ECTAB PO SCH (09:11)
--- NOTE | 2022-02-12 14:26 | Hospitalist Progress Note ---
Date of Service February 12, 2022 Assessment & Plan (1) Bronchopneumonia: Plan: History of severe COPD He was recently admitted 01/06 - 02/04 for respiratory failure secondary to COPD exacerbation when he was reported to have improvement on doxycycline and prednisone treatment. He never felt it was fully resolved per patient Started to complain more cough and shortness of breath Has bronchopneumonia as per CTA chest. No evidence of pulmonary embolism Has been on intravenous doxycycline and Rocephin. Clinically not any better today and complains to have cough and shortness of breath with minimal exertion Will add Hycodan cough syrup and continue current medications Advised to ambulate in the room and possible discharge tomorrow following 2 steps O2 saturation test Acute on chronic respiratory failure Likely bronchopneumonia Possible protracted COPD exacerbation As above and also has been getting nebulized bronchodilator and steroid Will need 1 or 2 more days to get even better Will give cough medications-Hycodan will be added Sepsis POA: Admitting pulse/RR/WBC elevated, though WBC elevation less reliable due to patient being on steroid. Imaging suggestive of pneumonia. Clinically better Diarrhea: 1 episode on the day of arrival, no further diarrhea movement. Continue to monitor. No more diarrhea Other chronic medical conditions: Mild JESUS/CPAP noncompliance, HLD, past tobacco abuse --->> continue home meds as and when appropriate. DVT prophylaxis: Lovenox subcu Full code Likely discharge in a day or 2 Admission and Anticipated Discharge Date Admission Date: February 09, 2022 Subjective 02/11/2022 The patient was seen and examined in medical telemetry unit He has been complaining of cough and shortness of breath with minimal exertion No fever and or chills, no abdominal pain, nausea and or vomiting 02/12/2022 The patient was seen and examined in medical telemetry unit He feels that he does not have any further improvement Still has cough without phlegm and short of breath with minimal activity Review of Systems Review of Systems: All systems reviewed and are unremarkable except as noted below Physical Exam Physical Exam: Lying in bed with minimal shortness of breath at rest Constitutional: + ill appearing and average body habitus Eyes: PERRL, conjunctivae normal, anicteric sclerae ENMT: external ear and nose normal, oropharynx normal Neck: trachea midline, no thyromegaly Respiratory: no respiratory distress Auscultation: + diminished lung sounds, + crackles (Minimal bibasilar crackles) and + wheezes (Minimal wheezing bilaterally) Cardiovascular: Rate/Rhythm: regular rate, regular rhythm and + tachycardic Heart Sounds: normal S1 and normal S2; no murmur Extremities: no edema Gastrointestinal (Abdomen): Inspection/Auscultation: normal bowel sounds; abdomen not distended Percussion/Palpation: abdomen soft; abdomen nontender Musculoskeletal: No acute arthritis in any joint Neurologic: Alert, awake and oriented x3. No focal sensory or no motor deficit appreciated Psychiatric: A+Ox3, euthymic affect Lymphatic: no cervical or axillary lymphadenopathy Results & Data Results & Data ([facility]) Vital Signs (Past 12 Hours) Vital Signs Temp Pulse Pulse Resp BP Pulse Ox Pulse Ox 02/12/22 12:37 101 H 16 96 02/12/22 08:10 02/12/22 11:32 36.7 C 102 H 20 142/87 H 95 02/12/22 07:31 36.8 C 89 20 132/84 97 02/12/22 07:10 112 H 18 95 02/12/22 07:04 77 02/12/22 04:05 36.5 C 90 16 144/77 H 95 02/12/22 03:54 97 O2 Del Method O2 Del Method O2 Flow Rate 02/12/22 12:37 Nasal Cannula 2 02/12/22 08:10 Nasal Cannula 2 02/12/22 11:32 Nasal Cannula 2 02/12/22 07:31 Nasal Cannula 2 02/12/22 07:10 Nasal Cannula 3 02/12/22 07:04 02/12/22 04:05 Room Air 02/12/22 03:54 Room Air Medications Administered Current Inpatient Medications Acetaminophen (Acetaminophen 325 Mg Tab) 650 mg PO Q4H PRN PRN Reason: Pain or Fever Stop: 03/11/22 06:29 Aspirin (Aspirin 81 Mg Ectab) 81 mg PO QAM [facility] Stop: 03/11/22 08:59 Last Admin: 02/12/22 09:11 Dose: 81 mg Benzonatate (Benzonatate 100 Mg Capsule) 100 mg PO TID [facility] Stop: 03/12/22 13:59 Last Admin: 02/12/22 14:14 Dose: 100 mg Doxycycline Hyclate (Doxycycline Hyclate 100 Mg Cap) 100 mg PO BID [facility] Stop: 02/16/22 08:59 Last Admin: 02/12/22 08:03 Dose: 100 mg Enoxaparin Sodium (Enoxaparin Inj 30 Mg/0.3 Ml Syr) 30 mg SQ QAM [facility] Stop: 03/11/22 08:59 Last Admin: 02/12/22 08:04 Dose: 30 mg Fluticasone Furoate (Fluticasone Furoate 100mcg 14 Puffs/Inhaler) 1 puffs INH DAILY [facility] Stop: 03/11/22 08:59 Last Admin: 02/12/22 08:04 Dose: 1 puffs Hydrocodone Bit/Homatropine Methylb (Hydrocodone/Homatropine Syrup 5mg/1.5mg 5ml Udp) 5 ml PO Q6H PRN PRN Reason: Cough Stop: 02/26/22 12:48 Hydroxyzine HCl (Hydroxyzine Hcl 10 Mg Tab) 10 mg PO QID PRN PRN Reason: Anxiety Stop: 03/11/22 05:17 Promethazine HCl 6.25 mg/ (Sodium Chloride) 50.25 mls @ 201 mls/hr IV Q6H PRN PRN Reason: Nausea And Vomiting Stop: 03/11/22 05:17 Ceftriaxone Sodium 2,000 mg/ (Dextrose) 70 mls @ 100 mls/hr IV Q24H [facility]; Protocol Stop: 02/16/22 07:59 Last Infusion: 02/12/22 08:57 Dose: Infused Ipratropium [place] (Ipratropium [place] Neb Soln 0.02% 2.5 Ml Vial) 0.5 mg INH Q6R [facility] Stop: 03/11/22 12:59 Last Admin: 02/12/22 12:36 Dose: 0.5 mg Lactobacillus Acidophilus (Advanced Probiotic 1250 Mg Capsule) 2 cap PO DAILY [facility] Stop: 03/12/22 13:14 Last Admin: 02/12/22 08:03 Dose: 2 cap Levalbuterol HCl (Levalbuterol 1.25mg/0.5ml Neb) 1.25 mg INH Q6R [facility] Stop: 03/11/22 12:59 Last Admin: 02/12/22 12:36 Dose: 1.25 mg Melatonin (Melatonin 3 Mg Tab) 6 mg PO HS PRN PRN Reason: Sleep Stop: 03/11/22 17:38 Last Admin: 02/10/22 21:13 Dose: 6 mg Multivitamins/Minerals (Cerovite Adv Formula Tab) 1 tab PO QAM [facility] Stop: 03/11/22 08:59 Last Admin: 02/12/22 08:03 Dose: 1 tab Prednisone (Prednisone 20 Mg Tab) 40 mg PO DAILY [facility] Stop: 03/12/22 08:59 Last Admin: 02/12/22 09:11 Dose: 40 mg Rosuvastatin Calcium (Rosuvastatin Calcium 20 Mg Tab) 20 mg PO QAM [facility] Stop: 03/11/22 08:59 Last Admin: 02/12/22 08:03 Dose: 20 mg Tramadol HCl (Tramadol Hcl 50 Mg Tablet) 25 - 50 mg PO Q4H PRN PRN Reason: Pain Stop: 03/11/22 05:17 Last Admin: 02/12/22 08:03 Dose: 50 mg Umeclidinium/Vilanterol (Umeclidinium/Vilanterol 62.5/25mcg 7 Puffs/Inhaler) 1 puffs INH DAILY [facility] Stop: 03/11/22 08:59 Last Admin: 02/12/22 08:04 Dose: 1 puffs
[2022-02-12] MEDS: HYDROcodone/HOMATROPINE SYRUP 5MG/1.5MG 5ML UDP PO PRN (20:10)
[2022-02-12] MEDS ORDERED: LEVALBUTEROL 1.25MG/0.5ML NEB INH SCH (21:00)
[2022-02-12] MEDS ORDERED: IPRATROPIUM BROMIDE NEB SOLN 0.02% 2.5 ML VIAL INH SCH (21:00)
[2022-02-12] MEDS: MELATONIN 3 MG TAB PO PRN (21:52)
[2022-02-13] MEDS: LEVALBUTEROL 1.25MG/0.5ML NEB INH SCH ×5 (00:52→19:59)
[2022-02-13] MEDS: IPRATROPIUM BROMIDE NEB SOLN 0.02% 2.5 ML VIAL INH SCH ×5 (00:52→19:59)
[2022-02-13] MEDS: cefTRIAXone SODIUM 2,000 MG in DEXTROSE 5% 50 ML IV SCH (08:50)
[2022-02-13] MEDS: CEROVITE ADV FORMULA TAB PO SCH (08:51)
[2022-02-13] MEDS: BENZONATATE 100 MG CAPSULE PO SCH ×3 (08:51→19:50)
[2022-02-13] MEDS: predniSONE 20 MG TAB PO SCH (08:51)
[2022-02-13] MEDS: DOXYCYCLINE HYCLATE 100 MG CAP PO SCH ×2 (08:51→19:51)
[2022-02-13] MEDS: ROSUVASTATIN CALCIUM 20 MG TAB PO SCH (08:52)
[2022-02-13] MEDS: ADVANCED PROBIOTIC 1250 MG CAPSULE PO SCH (08:52)
[2022-02-13] MEDS: FLUTICASONE FUROATE 100MCG 14 PUFFS/INHALER INH SCH (08:52)
[2022-02-13] MEDS: ASPIRIN 81 MG ECTAB PO SCH (08:52)
[2022-02-13] MEDS: ENOXAPARIN INJ 30 MG/0.3 ML SYR SQ SCH (08:52)
[2022-02-13] MEDS: UMECLIDINIUM/VILANTEROL 62.5/25MCG 7 PUFFS/INHALER INH SCH (08:53)
[2022-02-13] MEDS: HYDROcodone/HOMATROPINE SYRUP 5MG/1.5MG 5ML UDP PO PRN ×3 (09:05→21:25)
--- NOTE | 2022-02-13 12:46 | Hospitalist Progress Note ---
Date of Service February 13, 2022 Assessment & Plan (1) Bronchopneumonia: Plan: History of severe COPD He was recently admitted 01/06 - 02/04 for respiratory failure secondary to COPD exacerbation when he was reported to have improvement on doxycycline and prednisone treatment. He never felt it was fully resolved per patient Started to complain more cough and shortness of breath Has bronchopneumonia as per CTA chest. No evidence of pulmonary embolism Has been on intravenous doxycycline and Rocephin. Clinically not any better today and complains to have cough and shortness of breath with minimal exertion Will add Hycodan cough syrup and continue current medications Advised to ambulate in the room and possible discharge tomorrow following 2 steps O2 saturation test Clinically not yet improved to be discharged Acute on chronic respiratory failure Likely bronchopneumonia Possible protracted COPD exacerbation As above and also has been getting nebulized bronchodilator and steroid Will need 1 or 2 more days to get even better Will give cough medications-Hycodan will be added Will change oral prednisone to intravenous methylprednisone Advised to walk around in the room Likely discharge tomorrow Sepsis POA: Admitting pulse/RR/WBC elevated, though WBC elevation less reliable due to patient being on steroid. Imaging suggestive of pneumonia. Clinically better Diarrhea: 1 episode on the day of arrival, no further diarrhea movement. Continue to monitor. No more diarrhea Other chronic medical conditions: Mild JESUS/CPAP noncompliance, HLD, past tobacco abuse --->> continue home meds as and when appropriate. DVT prophylaxis: Lovenox subcu Full code Admission and Anticipated Discharge Date Admission Date: February 09, 2022 Subjective 02/11/2022 The patient was seen and examined in medical telemetry unit He has been complaining of cough and shortness of breath with minimal exertion No fever and or chills, no abdominal pain, nausea and or vomiting 02/12/2022 The patient was seen and examined in medical telemetry unit He feels that he does not have any further improvement Still has cough without phlegm and short of breath with minimal activity Not yet ready to be discharged Review of Systems Review of Systems: All systems reviewed and are unremarkable except as noted below Physical Exam Physical Exam: Lying in bed with minimal shortness of breath at rest Constitutional: + ill appearing and average body habitus Eyes: PERRL, conjunctivae normal, anicteric sclerae ENMT: external ear and nose normal, oropharynx normal Neck: trachea midline, no thyromegaly Respiratory: no respiratory distress Auscultation: + diminished lung sounds, + crackles (Minimal bibasilar crackles) and + wheezes (Minimal wheezing bilaterally) Cardiovascular: Rate/Rhythm: regular rate, regular rhythm and + tachycardic Heart Sounds: normal S1 and normal S2; no murmur Extremities: no edema Gastrointestinal (Abdomen): Inspection/Auscultation: normal bowel sounds; abdomen not distended Percussion/Palpation: abdomen soft; abdomen nontender Musculoskeletal: No acute arthritis in any joint Neurologic: Alert, awake and oriented x3. No focal sensory or no motor deficit appreciated Psychiatric: A+Ox3, euthymic affect Lymphatic: no cervical or axillary lymphadenopathy Results & Data Results & Data ([facility]) Vital Signs (Past 12 Hours) Vital Signs Temp Pulse Pulse Resp BP Pulse Ox O2 Del Method 02/13/22 06:00 82 02/13/22 11:45 90 16 95 Nasal Cannula 02/13/22 11:26 36.8 C 101 H 18 130/81 95 02/13/22 07:00 Nasal Cannula 02/13/22 07:42 36.5 C 88 18 128/77 97 Nasal Cannula 02/13/22 07:19 101 H 18 93 Nasal Cannula 02/13/22 03:00 02/13/22 04:00 36.7 C 100 H 18 131/72 95 Nasal Cannula 02/13/22 00:53 99 H 18 94 O2 Del Method O2 Flow Rate 02/13/22 06:00 02/13/22 11:45 2 02/13/22 11:26 2 02/13/22 07:00 02/13/22 07:42 2 02/13/22 07:19 2 02/13/22 03:00 Nasal Cannula 02/13/22 04:00 2 02/13/22 00:53
[2022-02-13] MEDS: methylPREDNISolone 40 MG in SYRINGE 0 ML IV SCH (19:51)
[2022-02-13] MEDS: MELATONIN 3 MG TAB PO PRN (21:25)
[2022-02-14] MEDS: LEVALBUTEROL 1.25MG/0.5ML NEB INH SCH ×4 (06:58→19:41)
[2022-02-14] MEDS: IPRATROPIUM BROMIDE NEB SOLN 0.02% 2.5 ML VIAL INH SCH ×4 (06:58→19:40)
[2022-02-14] MEDS: HYDROcodone/HOMATROPINE SYRUP 5MG/1.5MG 5ML UDP PO PRN ×3 (07:13→22:20)
[2022-02-14] MEDS: cefTRIAXone SODIUM 2,000 MG in DEXTROSE 5% 50 ML IV SCH (07:13)
[2022-02-14] MEDS: BENZONATATE 100 MG CAPSULE PO SCH ×3 (07:19→20:30)
[2022-02-14] MEDS: ENOXAPARIN INJ 30 MG/0.3 ML SYR SQ SCH (07:19)
[2022-02-14] MEDS: ADVANCED PROBIOTIC 1250 MG CAPSULE PO SCH (07:19)
[2022-02-14] MEDS: CEROVITE ADV FORMULA TAB PO SCH (07:19)
[2022-02-14] MEDS: DOXYCYCLINE HYCLATE 100 MG CAP PO SCH ×2 (07:19→20:29)
[2022-02-14] MEDS: UMECLIDINIUM/VILANTEROL 62.5/25MCG 7 PUFFS/INHALER INH SCH (07:20)
[2022-02-14] MEDS: methylPREDNISolone 40 MG in SYRINGE 0 ML IV SCH ×2 (07:20→20:30)
[2022-02-14] MEDS: FLUTICASONE FUROATE 100MCG 14 PUFFS/INHALER INH SCH (07:20)
[2022-02-14] MEDS: ASPIRIN 81 MG ECTAB PO SCH (07:21)
[2022-02-14] MEDS: ROSUVASTATIN CALCIUM 20 MG TAB PO SCH (07:21)
[2022-02-14] MEDS: traMADol HCL 50 MG TABLET PO PRN (13:15)
--- NOTE | 2022-02-14 13:35 | Hospitalist Progress Note ---
Date of Service February 14, 2022 Assessment & Plan (1) Bronchopneumonia: Plan: History of severe COPD He was recently admitted 01/06 - 02/04 for respiratory failure secondary to COPD exacerbation when he was reported to have improvement on doxycycline and prednisone treatment. He never felt it was fully resolved per patient Started to complain more cough and shortness of breath Has bronchopneumonia as per CTA chest. No evidence of pulmonary embolism Has been on intravenous doxycycline and Rocephin. Clinically not any better today and complains to have cough and shortness of breath with minimal exertion Will add Hycodan cough syrup and continue current medications Advised to ambulate in the room and possible discharge tomorrow following 2 steps O2 saturation test Clinically not yet improved to be discharged Has been much better with intravenous Solu-Medrol Will get to a stable to saturation tomorrow prior to discharge home Acute on chronic respiratory failure Likely bronchopneumonia Possible protracted COPD exacerbation As above and also has been getting nebulized bronchodilator and steroid Will need 1 or 2 more days to get even better Will give cough medications-Hycodan will be added Will change oral prednisone to intravenous methylprednisone Advised to walk around in the room Has been ambulating in the room with minimal shortness of breath Sepsis POA: Admitting pulse/RR/WBC elevated, though WBC elevation less reliable due to patient being on steroid. Imaging suggestive of pneumonia. Clinically better Diarrhea: 1 episode on the day of arrival, no further diarrhea movement. Continue to monitor. No more diarrhea Other chronic medical conditions: Mild JESUS/CPAP noncompliance, HLD, past tobacco abuse --->> continue home meds as and when appropriate. DVT prophylaxis: Lovenox subcu Full code Admission and Anticipated Discharge Date Admission Date: February 09, 2022 Subjective 02/11/2022 The patient was seen and examined in medical telemetry unit He has been complaining of cough and shortness of breath with minimal exertion No fever and or chills, no abdominal pain, nausea and or vomiting 02/12/2022 The patient was seen and examined in medical telemetry unit He feels that he does not have any further improvement Still has cough without phlegm and short of breath with minimal activity Not yet ready to be discharged 02/13/2022 and 02/14/2022 The patient was seen and examined yesterday and also today He has been complaining of cough with shortness of breath on exertion Generally feeling better but not yet ready to go home Review of Systems Review of Systems: All systems reviewed and are unremarkable except as noted below Physical Exam Physical Exam: Lying in bed with minimal shortness of breath at rest Constitutional: + ill appearing and average body habitus Eyes: PERRL, conjunctivae normal, anicteric sclerae ENMT: external ear and nose normal, oropharynx normal Neck: trachea midline, no thyromegaly Respiratory: no respiratory distress Auscultation: + diminished lung sounds, + crackles (Minimal bibasilar crackles) and + wheezes (Minimal wheezing bilaterally) Cardiovascular: Rate/Rhythm: regular rate, regular rhythm and + tachycardic Heart Sounds: normal S1 and normal S2; no murmur Extremities: no edema Gastrointestinal (Abdomen): Inspection/Auscultation: normal bowel sounds; abdomen not distended Percussion/Palpation: abdomen soft; abdomen nontender Musculoskeletal: No acute arthritis involving any joint Neurologic: Alert, awake and oriented x3. No focal sensory and motor deficit appreciated Psychiatric: A+Ox3, euthymic affect Lymphatic: no cervical or axillary lymphadenopathy Results & Data Results & Data ([facility]) Vital Signs (Past 12 Hours) Vital Signs Temp Pulse Pulse Pulse Resp BP Pulse Ox 02/14/22 12:19 36.6 C 100 H 22 145/96 H 94 02/14/22 11:14 36.8 C 113 H 19 124/78 95 02/14/22 10:43 104 H 16 94 02/14/22 06:08 91 H 02/14/22 07:43 36.8 C 97 H 20 123/77 94 02/14/22 07:44 36.4 C L 102 H 19 122/80 93 02/14/22 07:00 02/14/22 06:58 86 19 96 02/14/22 05:00 36.6 C 99 H 18 113/69 94 02/14/22 03:00 O2 Del Method O2 Del Method O2 Flow Rate 02/14/22 12:19 Nasal Cannula 2 02/14/22 11:14 Nasal Cannula 2 02/14/22 10:43 Nasal Cannula 2 02/14/22 06:08 02/14/22 07:43 Nasal Cannula 2 02/14/22 07:44 Nasal Cannula 2 02/14/22 07:00 Nasal Cannula 2 02/14/22 06:58 Nasal Cannula 2 02/14/22 05:00 Nasal Cannula 2 02/14/22 03:00 Nasal Cannula Medications Administered Current Inpatient Medications Acetaminophen (Acetaminophen 325 Mg Tab) 650 mg PO Q4H PRN PRN Reason: Pain or Fever Stop: 03/11/22 06:29 Aspirin (Aspirin 81 Mg Ectab) [address] [facility] Stop: 03/11/22 08:59 Last Admin: 02/14/22 07:21 Dose: 81 mg Benzonatate (Benzonatate 100 Mg Capsule) [address] [facility] Stop: 03/12/22 13:59 Last Admin: 02/14/22 13:15 Dose: 100 mg Doxycycline Hyclate (Doxycycline Hyclate 100 Mg Cap) [address] [facility] Stop: 02/16/22 08:59 Last Admin: 02/14/22 07:19 Dose: 100 mg Enoxaparin Sodium (Enoxaparin Inj 30 Mg/0.3 Ml Syr) [address] [facility] Stop: 03/11/22 08:59 Last Admin: 02/14/22 07:19 Dose: 30 mg Fluticasone Furoate (Fluticasone Furoate 100mcg 14 Puffs/Inhaler) [address] [facility] Stop: 03/11/22 08:59 Last Admin: 02/14/22 07:20 Dose: 1 puffs Hydrocodone Bit/Homatropine Methylb (Hydrocodone/Homatropine Syrup 5mg/1.5mg 5ml Udp) 5 ml PO Q6H PRN PRN Reason: Cough Stop: 02/26/22 12:48 Last Admin: 02/14/22 07:13 Dose: 5 ml Hydroxyzine HCl (Hydroxyzine Hcl 10 Mg Tab) 10 mg PO QID PRN PRN Reason: Anxiety Stop: 03/11/22 05:17 Promethazine HCl 6.25 mg/ (Sodium Chloride) 50.25 mls @ 201 mls/hr IV Q6H PRN PRN Reason: Nausea And Vomiting Stop: 03/11/22 05:17 Ceftriaxone Sodium 2,000 mg/ (Dextrose) 70 mls @ 100 mls/hr IV Q24H [facility]; Protocol Stop: 02/16/22 07:59 Last Infusion: 02/14/22 07:55 Dose: Infused Methylprednisolone 40 mg/ (Syringe) 0.64 mls @ 1.5 mls/min IV BID [facility] Stop: 03/15/22 20:59 Last Admin: 02/14/22 07:20 Dose: 1.5 mls/min Ipratropium [place] (Ipratropium [place] Neb Soln 0.02% 2.5 Ml Vial) 0.5 mg INH QIDR [facility] Stop: 03/14/22 20:59 Last Admin: 02/14/22 10:42 Dose: 0.5 mg Lactobacillus Acidophilus (Advanced Probiotic 1250 Mg Capsule) 2 cap PO DAILY [facility] Stop: 03/12/22 13:14 Last Admin: 02/14/22 07:19 Dose: 2 cap Levalbuterol HCl (Levalbuterol 1.25mg/0.5ml Neb) 1.25 mg INH QIDR [facility] Stop: 03/14/22 20:59 Last Admin: 02/14/22 10:43 Dose: 1.25 mg Melatonin (Melatonin 3 Mg Tab) 6 mg PO HS PRN PRN Reason: Sleep Stop: 03/11/22 17:38 Last Admin: 02/13/22 21:25 Dose: 6 mg Multivitamins/Minerals (Cerovite Adv Formula Tab) 1 tab PO QAM [facility] Stop: 03/11/22 08:59 Last Admin: 02/14/22 07:19 Dose: 1 tab Rosuvastatin Calcium (Rosuvastatin Calcium 20 Mg Tab) 20 mg PO QAM [facility] Stop: 03/11/22 08:59 Last Admin: 02/14/22 07:21 Dose: 20 mg Tramadol HCl (Tramadol Hcl 50 Mg Tablet) 25 - 50 mg PO Q4H PRN PRN Reason: Pain Stop: 03/11/22 05:17 Last Admin: 02/14/22 13:15 Dose: 25 mg Umeclidinium/Vilanterol (Umeclidinium/Vilanterol 62.5/25mcg 7 Puffs/Inhaler) 1 puffs INH DAILY [facility] Stop: 03/11/22 08:59 Last Admin: 02/14/22 07:20 Dose: 1 puffs
[2022-02-14] MEDS: MELATONIN 3 MG TAB PO PRN (22:20)
[2022-02-15] MEDS: LEVALBUTEROL 1.25MG/0.5ML NEB INH SCH ×2 (07:29→11:31)
[2022-02-15] MEDS: IPRATROPIUM BROMIDE NEB SOLN 0.02% 2.5 ML VIAL INH SCH ×2 (07:29→11:31)
[2022-02-15] MEDS ORDERED: POTASSIUM CHLORIDE CRTAB 20 MEQ TABCR PO STA (07:43)
[2022-02-15] MEDS: UMECLIDINIUM/VILANTEROL 62.5/25MCG 7 PUFFS/INHALER INH SCH (08:03)
[2022-02-15] MEDS: FLUTICASONE FUROATE 100MCG 14 PUFFS/INHALER INH SCH (08:03)
[2022-02-15] MEDS: traMADol HCL 50 MG TABLET PO PRN (08:06)
[2022-02-15] MEDS: ENOXAPARIN INJ 30 MG/0.3 ML SYR SQ SCH (08:07)
[2022-02-15] MEDS: methylPREDNISolone 40 MG in SYRINGE 0 ML IV SCH (08:07)
[2022-02-15] MEDS: HYDROcodone/HOMATROPINE SYRUP 5MG/1.5MG 5ML UDP PO PRN (08:07)
[2022-02-15] MEDS: BENZONATATE 100 MG CAPSULE PO SCH ×2 (08:07→13:00)
[2022-02-15] MEDS: ASPIRIN 81 MG ECTAB PO SCH (08:08)
[2022-02-15] MEDS: DOXYCYCLINE HYCLATE 100 MG CAP PO SCH (08:08)
[2022-02-15] MEDS: ADVANCED PROBIOTIC 1250 MG CAPSULE PO SCH (08:08)
[2022-02-15] MEDS: ROSUVASTATIN CALCIUM 20 MG TAB PO SCH (08:08)
[2022-02-15] MEDS: CEROVITE ADV FORMULA TAB PO SCH (08:08)
[2022-02-15] MEDS: cefTRIAXone SODIUM 2,000 MG in DEXTROSE 5% 50 ML IV SCH (08:09)
--- NOTE | 2022-02-15 09:56 | Hospitalist Progress Note ---
Date of Service February 15, 2022 Assessment & Plan (1) Bronchopneumonia: Plan: History of severe COPD He was recently admitted 01/06 - 02/04 for respiratory failure secondary to COPD exacerbation when he was reported to have improvement on doxycycline and prednisone treatment. He never felt it was fully resolved per patient Started to complain more cough and shortness of breath Has bronchopneumonia as per CTA chest. No evidence of pulmonary embolism Has been on intravenous doxycycline and Rocephin. Clinically not any better today and complains to have cough and shortness of breath with minimal exertion Will add Hycodan cough syrup and continue current medications Advised to ambulate in the room and possible discharge tomorrow following 2 steps O2 saturation test Clinically not yet improved to be discharged Has been much better with intravenous Solu-Medrol Will get to a stable to saturation tomorrow prior to discharge home Clinically much better and will be discharged home this afternoon on tapered dose of steroid and antibiotic Acute on chronic respiratory failure Likely bronchopneumonia Possible protracted COPD exacerbation As above and also has been getting nebulized bronchodilator and steroid Will need 1 or 2 more days to get even better Will give cough medications-Hycodan will be added Will change oral prednisone to intravenous methylprednisone Advised to walk around in the room Has been ambulating in the room with minimal shortness of breath Sepsis POA: Admitting pulse/RR/WBC elevated, though WBC elevation less reliable due to patient being on steroid. Imaging suggestive of pneumonia. Clinically better Diarrhea: 1 episode on the day of arrival, no further diarrhea movement. Continue to monitor. No more diarrhea Other chronic medical conditions: Mild JESUS/CPAP noncompliance, HLD, past tobacco abuse --->> continue home meds as and when appropriate. DVT prophylaxis: Lovenox subcu Full code Admission and Anticipated Discharge Date Admission Date: February 09, 2022 Subjective 02/11/2022 The patient was seen and examined in medical telemetry unit He has been complaining of cough and shortness of breath with minimal exertion No fever and or chills, no abdominal pain, nausea and or vomiting 02/12/2022 The patient was seen and examined in medical telemetry unit He feels that he does not have any further improvement Still has cough without phlegm and short of breath with minimal activity Not yet ready to be discharged 02/13/2022 and 02/14/2022 The patient was seen and examined yesterday and also today He has been complaining of cough with shortness of breath on exertion Generally feeling better but not yet ready to go home 02/15/2022 The patient was seen and examined in medical telemetry unit He has been feeling much better and he still has the cough but much improved Minimal wheezing and has been ambulating in the room without any significant shortness of breath Will have2 steps O2 saturation test prior to discharge home this afternoon Review of Systems Review of Systems: All systems reviewed and are unremarkable except as noted below Physical Exam Physical Exam: Lying in bed with minimal shortness of breath at rest Constitutional: + ill appearing and average body habitus Eyes: PERRL, conjunctivae normal, anicteric sclerae ENMT: external ear and nose normal, oropharynx normal Neck: trachea midline, no thyromegaly Respiratory: no respiratory distress Auscultation: + diminished lung sounds (Improved), + crackles (Minimal bibasilar crackles) and + wheezes (Minimal wheezing bilaterally) Cardiovascular: Rate/Rhythm: regular rate, regular rhythm and + tachycardic Heart Sounds: normal S1 and normal S2; no murmur Extremities: no edema Gastrointestinal (Abdomen): Inspection/Auscultation: normal bowel sounds; abdomen not distended Percussion/Palpation: abdomen soft; abdomen nontender Psychiatric: A+Ox3, euthymic affect Lymphatic: no cervical or axillary lymphadenopathy Results & Data Results & Data ([facility]) Vital Signs (Past 12 Hours) Vital Signs Temp Pulse Pulse Resp BP Pulse Ox Pulse Ox 02/15/22 07:57 36.6 C 106 H 20 112/76 94 02/15/22 07:29 92 H 18 96 02/14/22 22:18 101 H 02/15/22 03:00 95 02/15/22 03:06 36.5 C 85 18 138/77 95 02/14/22 23:24 36.6 C 99 H 18 126/88 93 O2 Del Method O2 Del Method O2 Flow Rate O2 Flow Rate 02/15/22 07:57 Nasal Cannula 2 02/15/22 07:29 Nasal Cannula 2 02/14/22 22:18 02/15/22 03:00 Nasal Cannula, Oxyhood 2 02/15/22 03:06 Nasal Cannula 2 02/14/22 23:24 Nasal Cannula 2 Medications Administered Current Inpatient Medications Acetaminophen (Acetaminophen 325 Mg Tab) 650 mg PO Q4H PRN PRN Reason: Pain or Fever Stop: 03/11/22 06:29 Aspirin (Aspirin 81 Mg Ectab) 81 mg PO QAM [facility] Stop: 03/11/22 08:59 Last Admin: 02/15/22 08:08 Dose: 81 mg Benzonatate (Benzonatate 100 Mg Capsule) 100 mg PO TID [facility] Stop: 03/12/22 13:59 Last Admin: 02/15/22 08:07 Dose: 100 mg Doxycycline Hyclate (Doxycycline Hyclate 100 Mg Cap) 100 mg PO BID [facility] Stop: 02/16/22 08:59 Last Admin: 02/15/22 08:08 Dose: 100 mg Enoxaparin Sodium (Enoxaparin Inj 30 Mg/0.3 Ml Syr) 30 mg SQ QAM [facility] Stop: 03/11/22 08:59 Last Admin: 02/15/22 08:07 Dose: 30 mg Fluticasone Furoate (Fluticasone Furoate 100mcg 14 Puffs/Inhaler) 1 puffs INH DAILY [facility] Stop: 03/11/22 08:59 Last Admin: 02/15/22 08:03 Dose: 1 puffs Hydrocodone Bit/Homatropine Methylb (Hydrocodone/Homatropine Syrup 5mg/1.5mg 5ml Udp) 5 ml PO Q6H PRN PRN Reason: Cough Stop: 02/26/22 12:48 Last Admin: 02/15/22 08:07 Dose: 5 ml Hydroxyzine HCl (Hydroxyzine Hcl 10 Mg Tab) 10 mg PO QID PRN PRN Reason: Anxiety Stop: 03/11/22 05:17 Promethazine HCl 6.25 mg/ (Sodium Chloride) 50.25 mls @ 201 mls/hr IV Q6H PRN PRN Reason: Nausea And Vomiting Stop: 03/11/22 05:17 Ceftriaxone Sodium 2,000 mg/ (Dextrose) 70 mls @ 100 mls/hr IV Q24H [facility]; Protocol Stop: 02/16/22 07:59 Last Admin: 02/15/22 08:09 Dose: 100 mls/hr Methylprednisolone 40 mg/ (Syringe) 0.64 mls @ 1.5 mls/min IV BID [facility] Stop: 03/15/22 20:59 Last Admin: 02/15/22 08:07 Dose: 1.5 mls/min Ipratropium [place] (Ipratropium [place] Neb Soln 0.02% 2.5 Ml Vial) 0.5 mg INH QIDR [facility] Stop: 03/14/22 20:59 Last Admin: 02/15/22 07:29 Dose: 0.5 mg Lactobacillus Acidophilus (Advanced Probiotic 1250 Mg Capsule) 2 cap PO DAILY [facility] Stop: 03/12/22 13:14 Last Admin: 02/15/22 08:08 Dose: 2 cap Levalbuterol HCl (Levalbuterol 1.25mg/0.5ml Neb) 1.25 mg INH QIDR [facility] Stop: 03/14/22 20:59 Last Admin: 02/15/22 07:29 Dose: 1.25 mg Melatonin (Melatonin 3 Mg Tab) 6 mg PO HS PRN PRN Reason: Sleep Stop: 03/11/22 17:38 Last Admin: 02/14/22 22:20 Dose: 6 mg Multivitamins/Minerals (Cerovite Adv Formula Tab) 1 tab PO QAM [facility] Stop: 03/11/22 08:59 Last Admin: 02/15/22 08:08 Dose: 1 tab Rosuvastatin Calcium (Rosuvastatin Calcium 20 Mg Tab) 20 mg PO QAM [facility] Stop: 03/11/22 08:59 Last Admin: 02/15/22 08:08 Dose: 20 mg Tramadol HCl (Tramadol Hcl 50 Mg Tablet) 25 - 50 mg PO Q4H PRN PRN Reason: Pain Stop: 03/11/22 05:17 Last Admin: 02/15/22 08:06 Dose: 50 mg Umeclidinium/Vilanterol (Umeclidinium/Vilanterol 62.5/25mcg 7 Puffs/Inhaler) 1 puffs INH DAILY [facility] Stop: 03/11/22 08:59 Last Admin: 02/15/22 08:03 Dose: 1 puffs
--- NOTE | 2022-02-16 07:33 | Discharge Summary ---
Date of Service February 16, 2022 Admission HPI Per Admitting Provider History obtained from patient and records. Medical history significant for chronic respiratory failure secondary to COPD/bronchiectasis, mild JESUS (CPAP noncompliant), hyperlipidemia, past tobacco abuse. Last confinement February 02February 04, 2022 for respiratory failure secondary to COPD exacerbation. Patient improved on doxycycline and prednisone Rx. Patient not fully comfortable with breathing on discharge. A few days after being home, patient started feeling worse again. Diarrhea without abdominal pain. Worsening cough, shortness of breath with pleuritic back pain complaints despite compliance with medications. Symptoms worse on ambulation. Patient denies aspiration. Solu-Medrol and neb treatment administered by EMS prior to arrival at the ER. Medical History as above Surgical History : Right wrist surgery, right shoulder surgery Family History : Brain cancer, COPD, Parkinson's disease Personal/Social history : Past tobacco abuse, no EtOH intake Admission Exam Per Admitting Provider Physical Exam: GENERAL: uncomfortable, respiratory distress SKIN: Normal color, warm HEENT: [place] palpebral conjunctivae, no ptosis, dry buccal mucosa to kindly place NECK : Supple, no tenderness CHEST : Decreased breath sounds, diffuse expiratory wheezes, no tenderness HEART : Tachycardic, no obvious murmurs ABDOMEN: Some distention, nontender EXTREMITIES : Minimal LE swelling, no LE tenderness, no other conspicuous deformities noted NEUROLOGIC : Coherent, no facial asymmetry, no other gross focality Principal Diagnosis COPD exacerbation, bronchopneumonia Discharge Exam Lying in bed with minimal shortness of breath at rest Constitutional + ill appearing and average body habitus Eyes PERRL, conjunctivae normal, anicteric sclerae ENMT external ear and nose normal, oropharynx normal Neck trachea midline, no thyromegaly Respiratory no respiratory distress Auscultation: + diminished lung sounds (Improved), + crackles (Minimal bibasilar crackles) and + wheezes (Minimal wheezing bilaterally) Cardiovascular Rate/Rhythm: regular rate, regular rhythm and + tachycardic Heart Sounds: normal S1 and normal S2; no murmur Extremities: no edema Gastrointestinal (Abdomen) Inspection/Auscultation: normal bowel sounds; abdomen not distended Percussion/Palpation: abdomen soft; abdomen nontender Psychiatric A+Ox3, euthymic affect Lymphatic no cervical or axillary lymphadenopathy Discharge Data Allergies Allergy/AdvReac Type Severity Reaction Status Date / Time No Known Allergies Allergy Verified 02/09/22 02:49 Consultations 02/09/22 03:53 ED Decision to Admit Stat Ordered Studies 02/09/22 05:11 CT angio chest PE protocol Urgent Hospital Course (1) Bronchopneumonia: History of severe COPD He was recently admitted 01/06 - 02/04 for respiratory failure secondary to COPD exacerbation when he was reported to have improvement on doxycycline and prednisone treatment. He never felt it was fully resolved per patient Started to complain more cough and shortness of breath Has bronchopneumonia as per CTA chest. No evidence of pulmonary embolism Has been on intravenous doxycycline and Rocephin. Clinically not any better today and complains to have cough and shortness of breath with minimal exertion Will add Hycodan cough syrup and continue current medications Advised to ambulate in the room and possible discharge tomorrow following 2 steps O2 saturation test Clinically not yet improved to be discharged Has been much better with intravenous Solu-Medrol Will get to a stable to saturation tomorrow prior to discharge home Clinically much better and will be discharged home this afternoon on tapered dose of steroid and antibiotic Acute on chronic respiratory failure Likely bronchopneumonia Possible protracted COPD exacerbation As above and also has been getting nebulized bronchodilator and steroid Will need 1 or 2 more days to get even better Will give cough medications-Hycodan will be added Will change oral prednisone to intravenous methylprednisone Advised to walk around in the room Has been ambulating in the room with minimal shortness of breath Sepsis POA: Admitting pulse/RR/WBC elevated, though WBC elevation less reliable due to patient being on steroid. Imaging suggestive of pneumonia. Clinically better Diarrhea: 1 episode on the day of arrival, no further diarrhea movement. Continue to monitor. No more diarrhea Other chronic medical conditions: Mild JESUS/CPAP noncompliance, HLD, past tobacco abuse --->> continue home meds as and when appropriate. DVT prophylaxis: Lovenox subcu Full code Total Time Total Time Spent Total Time Spent (In Minutes): 35 minutes Discharge Plan Discharge Items Patient Disposition: Home - Self-Care Reason For Visit: RESP FAILURE Discharge Diagnosis: COPD exacerbation, bronchopneumonia Condition on Discharge: Fair Activity: Resume your previous activity Non-emergency contact: Primary Care Provider Call non-emergency contact if: you have any medication questions and your symptoms worsen Follow-up/Referrals: Edelmira Cavanaugh MD [Primary Care Provider] - ( ) Diet: Heart Healthy and Lactose Intolerant [place] Attending Provider Instructions: Please take precautions to avoid fall Please finish the course of her antibiotic and prednisone Keep appointment with your healthcare provider Avoid respiratory stimulants as discussed You need oxygen at a rate of 2 L/min with rest and ambulation Pending Studies at Discharge: No Stand-Alone Forms: My [facility] [employer], Smoking Cessation Medications and DC Order Prescriptions: New benzonatate 100 mg Capsule 100 mg PO TID Qty: 30 0RF prednisone 10 mg tablet 10 mg PO UD Qty: 18 0RF Rx Instructions: 3 p.o. daily for 3 days, 2 p.o. daily for 3 days and then 1 daily for 3 days Continued aspirin 81 mg Tablet,Delayed Release (Dr/Ec) 81 mg PO QAM albuterol sulfate [Ventolin HFA] 90 mcg/actuation Hfa Aerosol Inhaler 2 puff INHALATION QID PRN (Reason: Shortness Of Breath Or Wheezing) rosuvastatin [Crestor] 20 mg Tablet 20 mg PO QAM Centrum 18-400 mg-mcg Tablet 1 tab PO QAM Trelegy Ellipta 100-62.5-25 mcg Blister With Device 1 inh INHALATION HS albuterol sulfate 2.5 mg /3 mL (0.083 %) Solution For Nebulization 2.5 mg INHALATION Q4 PRN (Reason: Shortness Of Breath) Qty: 50 0RF doxycycline hyclate 100 mg Capsule 100 mg PO BID Qty: 12 0RF Robitussin Cough-Chest Tom DM 10-200 mg capsule 1 tab-cap PO Q8H PRN (Reason: cough) Qty: 7 0RF Discontinued prednisone 20 mg Tablet 40 mg PO DAILY Qty: 6 0RF Discharge Orders: Discharge Order (Routine); Ordered 02/15/22 Ordered By: Coleen Scott/Other Patient Handouts: A1C, When You Have Pneumonia, Oxygen Supplement al Admission Data Admit Date/Time: 02/09/22 05:15 Attending Provider: Coleen Miguel Admit Provider: Zack Bowie Primary Care Provider: Edelmira Cavanaugh Other Providers: Zack Bowie ; Angelica Redd Other Interventions: Discharge Summary Assessment (RN) Last Done: 02/15/22 12:21
== END 2022-02-15 13:45 | disposition home or self-care (01) | DRG 871 ==
LOC: ED 02:27 → 2N 05:15 → SUATTDRO 05:15 → 2N 06:18

== ENCOUNTER 2022-06-05 10:36 | Inpatient (IN) ==
[2022-06-05] MEDS ORDERED: ALBUT/IPRATROP 3MG/0.5MG NEB 3 ML VIAL INH STA (10:49)
[2022-06-05] MEDS ORDERED: methylPREDNISolone 125 MG/2 ML VIAL IV STA (11:00)
--- NOTE | 2022-06-05 11:04 | Communication Note ---
Date of Service: June 05, 2022 I personally obtained a history from and examined the patient. Refer to Dr. Knutson's note for further details. Resident Activity Tracking Resident Involvement: Resident Care Provided Care Provided: Adult ED
[2022-06-05] MEDS ORDERED: SODIUM CHLORIDE 0.9% 1000ML 1,000 ML IV ONE ×2 (11:12→11:58)
[2022-06-05] MEDS ORDERED: guaiFENesin 600 MG TABCR PO STA (11:16)
--- NOTE | 2022-06-05 11:17 | Emergency Department Note ---
Impression & Plan Respiratory failure, acute and chronic, COVID-19, COPD exacerbation, Dehydration, Sinus tachycardia ED Provider Note NAME: JENNIE BRIONES AGE: 62 SEX: M ARRIVES VIA: Ambulance INFORMANT: Patient ED PROVIDER(S): Umair Knutson MD CHIEF COMPLAINT: Shortness of breath. PLAN: Disposition: Admit MEDICAL DECISION MAKING: The patient is a pleasant 62-year-old gentleman with a past medical history of COPD on 2 L home oxygen who presents to the emergency department via EMS for worsening cough congestion shortness of breath over the past several days. He reports chest tightness that has been ongoing since 2 AM that has been constant. He denies fevers. He denies nausea, vomiting or diarrhea. He admits he has had poor oral intake due to his difficulty breathing. On arrival the patient is uncomfortable in mild respiratory distress with respiratory rate in the 30s heart rate in the 140s and blood pressure 150s/90s. O2 saturation is 97% on 4 L nasal cannula. He appears clinically dry. He has poor air movement bilaterally with underlying wheeze and prolonged expiratory phase. EKG demonstrates sinus tachycardia with ST abnormality however no overt ST e levation or depression. Chest x-ray negative for acute cardiopulmonary process. WBC, H/H and platelets within normal limits. Chemistry without metabolic acidosis. LFTs unremarkable. High-sensitivity troponin 7.0, within normal limits. BMP within normal limits. COVID-19 PCR was positive. Influenza and RSV PCR were negative. Upon evaluation the patient did report having significant treatment following IV fluid hydration (2L NSS, ~30cc/kg), guaifenesin, Solu-Medrol and hour-long DuoNeb. Air movement was significantly improved. HR improved. We did discuss his COVID-19 diagnosis and he reports he did have COVID-19 a year ago but has had negative tests since then and so this likely represents a new infection. Patient is in agreement with plan for admission for further management. Case was discussed with Lisandra BRYANT with Dr. Collier, [facility] hospitalist, who will evaluate the patient for admission. Triage Nursing notes reviewed and agree them. Prior/outside medical records reviewed Vital Signs: reviewed Differential diagnosis: Reactive airway disease, pneumonia, pneumothorax, COPD, CHF, infections, cardiac ischemia, pulmonary embolism, musculoskeletal, gastrointestinal, as well as oth er pathologies. ER treatment provided: See below. Diagnostics interpreted by me: ECG: Sinus tachycardia, 141 bpm, no ectopy, nonspecific ST and T wave abnormality, no overt ST elevation or depression, QTc 410, QRS 72 Cardiac Monitoring: An order for continuous cardiac monitoring was placed and de monstrated sinus tachycardia, 141 bpm, no ectopy. Laboratory studies: See below Imaging studies: See below Consultation(s): Case was discussed with Lisandra BRYANT with Dr. Collier, [facility] hospitalist, who will evaluate the patient for admission. HPI: The patient is a pleasant 62-year-old gentleman with a past medical history of COPD on 2 L home oxygen who presents to the emergency department via EMS for worsening cough congestion shortness of breath over the past several days. He reports chest tightness that has been ongoing since 2 AM that has been constant. He denies fevers. He denies nausea, vomiting or diarrhea. He admits he has had poor oral intake due to his difficulty breathing. ROS: See above HPI for pertinent positives & negatives. A total of 10 systems reviewed and were otherwise negative. VITALS:See Below PHYSICAL EXAMINATION: GENERAL: Awake, alert, uncomfortable-appearing, in no distress HENT: Normocephalic, atraumatic. Oropharynx with dry mucous membranes and otherwise unremarkable. EYES: Normal conjunctiva. Sclera non-icteric. NECK: Supple. No nuchal rigidity. FROM. No JVD. RESPIRATORY: Poor air movement bilaterally with underlying wheeze and prolonged expiratory phase. CARDIAC: Tachycardic rate, normal rhythm. Extremities warm and well perfused. Pulses equal. ABDOMEN: Soft, non-distended. No tenderness to palpation. No rebound or guarding. No masses. RECTAL: Deferred. MUSCULOSKELETAL: Chest examination reveals no tenderness. The back is symmetrical on inspection without obvious abnormality. There is no CVA tenderness to palpation. No joint edema. LOWER EXTREMITIES: Calves are equal size bilaterally and non-tender. No edema. No discoloration. NEURO: Normal sensorium. No sensory or motor deficits noted. SKIN: No rash or jaundice noted. ED COURSE: Critical Care: I have personally spent greater than 35 minutes of critical care time in the direct management of this patient. This includes bedside care, interpretation of diagnostic studies, and testing, discussion with consultants, patient, and family members, and other required patient management activities. This 35 minutes is in excess of all separately billable procedures. Umair Knutson MD Past Med/Surg History Medical History Acute exacerbation of chronic obstructive airways disease Acute respiratory distress Acute respiratory failure with hypoxia and hypercarbia COPD (chronic obstructive pulmonary disease) inhaler/nebulizer/oxygen Hyperlipidemia On home oxygen therapy 2L N/C hs and prn Surgical History History of arthroscopy of right shoulder History of bronchoscopy History of colonoscopy with polypectomy History of mandibular surgery History of tooth extraction all teeth Family History Other No family history of adverse response to anesthesia No significant family history Social History Smoking Status: Current some day smoker Tobacco Type: Cigarettes Cigarettes Per Day: 40; Second Hand Exposure: Yes (parents smoked/ smokes); Hx Alcohol Use: No Hx Substance Use: No Preferred Language: Macedonian Communication Ability: Effective Ginner Helper Required: No Beliefs That Will Affect Care: None marital status: Current Living Situation: Spouse current occupational status: unemployed and disabled Feels Safe at Home: Yes Assistive Devices: Glasses Allergies Allergies Allergy/AdvReac Type Severity Reaction Status Date / Time No Known Allergies Allergy Verified 02/09/22 02:49 Home Meds Home Medications Medication Instructions Recorded Confirmed albuterol sulfate 90 mcg/actuation 2 puff inhalation QID PRN 06/15/18 02/09/22 aerosol inhaler (Ventolin HFA) Shortness Of Breath Or Wheezing aspirin 81 mg tablet,delayed 81 mg PO QAM 06/15/18 02/09/22 release multivitamin-ferrous 1 tab PO QAM 06/15/18 02/09/22 fumarate-folic acid 18 mg-400 mcg tablet (Centrum) rosuvastatin 20 mg tablet (Crestor) 20 mg PO QAM 06/15/18 02/09/22 fluticasone fur. 100 mcg-umeclid 1 inh inhalation HS 04/26/19 02/09/22 62.5 mcg-vilant 25 mcg inhalat.powder (Trelegy Ellipta) Previous Rx's Medication Instructions Recorded dextromethorphan-guaifenesin 10 1 tab-cap PO Q8H PRN cough #7 caps 02/04/22 mg-200 mg capsule (Robitussin Cough-Chest Congestion DM) doxycycline hyclate 100 mg capsule 100 mg PO BID #12 caps 02/04/22 albuterol sulfate 2.5 mg/3 mL 2.5 mg (3 mL) inhalation Q4 PRN 02/15/22 (0.083 %) solution for nebulization Shortness Of Breath #50 mL benzonatate 100 mg capsule 100 mg PO TID #30 caps 02/15/22 prednisone 10 mg tablet 10 mg PO UD #18 tabs 02/15/22 Results & Data (ED) Vital Signs Vital Signs - 24 hr 06/05/22 10:43 06/05/22 10:49 06/05/22 10:49 Temperature 37.0 C Temperature Source Oral Pulse Rate 141 H Pulse Rate [Right Finger] Respiratory Rate 33 H Respiratory Effort / Characteristics Spontaneous Labored Spontaneous Labored Respiratory Pattern Tachypnea Blood Pressure 158/98 H Blood Pressure [Right Arm] Blood Pressure Mean 118 Blood Pressure Mean [Right Arm] Pulse Oximetry 95 97 Oxygen Delivery Method Nasal Cannula Nasal Cannula Oxygen Flow Rate 4 4 Sepsis New/Unexplained Change in Mental Status N/A Sepsis Action Taken by Nursing No Action Required 06/05/22 10:56 06/05/22 11:19 06/05/22 11:23 Temperature Temperature Source Pulse Rate 140 H Pulse Rate [Right Finger] 119 H 129 H Respiratory Rate 18 28 H Respiratory Effort / Characteristics Non-Labored Spontaneous Respiratory Pattern Tachypnea Blood Pressure Blood Pressure [Right Arm] 117/90 Blood Pressure Mean Blood Pressure Mean [Right Arm] 99 Pulse Oximetry 95 98 Oxygen Delivery Method Nasal Cannula Nebulizer Oxygen Flow Rate 3 Sepsis New/Unexplained Change in Mental Status Sepsis Action Taken by Nursing 06/05/22 11:23 06/05/22 12:43 06/05/22 13:07 Temperature 36.6 C Temperature Source Oral Pulse Rate Pulse Rate [Right Finger] 107 H Respiratory Rate 24 Respiratory Effort / Characteristics Respiratory Pattern Tachypnea Blood Pressure Blood Pressure [Right Arm] 131/89 Blood Pressure Mean Blood Pressure Mean [Right Arm] 103 Pulse Oximetry 98 2 L Oxygen Delivery Method Nebulizer Nasal Cannula Oxygen Flow Rate Sepsis New/Unexplained Change in Mental Status Sepsis Action Taken by Nursing 06/05/22 13:29 06/05/22 14:01 Temperature 36.6 C Temperature Source Oral Pulse Rate Pulse Rate [Right Finger] 96 H Respiratory Rate 24 Respiratory Effort / Characteristics Respiratory Pattern Tachypnea Blood Pressure Blood Pressure [Right Arm] 133/81 Blood Pressure Mean Blood Pressure Mean [Right Arm] 98 Pulse Oximetry 96 Oxygen Delivery Method Nasal Cannula Oxygen Flow Rate 2 Sepsis New/Unexplained Change in Mental Status Sepsis Action Taken by Nursing Laboratory Data Attestation: I reviewed the patient's lab results. 06/05/22 10:53 06/05/22 10:53 Lab Results 06/05/22 06/05/22 06/05/22 Range/Units 10:53 10:53 10:53 WBC 10.66 (4.8-10.8) K/ul RBC 5.00 (4.70-6.10) M/uL Hgb 15.0 (14.0-18.0) g/dl Hct 45.9 (42.0-52.0) % MCV 91.8 (80.0-100.0) fL MCH 30.0 (25.0-34.0) pg MCHC 32.7 (32.0-36.0) g/dL RDW Std Deviation 44.0 (36.4-46.3) fL RDW Coeff of Lashanda 13.0 (11.5-14.5) % Plt Count 308 (130-400) K/uL MPV 10.8 (9.4-12.4) fL Immature Gran % (Auto) 0.3 % Neut % (Auto) 73.4 % Lymph % (Auto) 11.4 % [place] % (Auto) 14.0 % Eos % (Auto) 0.1 % Baso % (Auto) 0.8 % Neut # (Auto) 7.83 H (1.40-6.50) K/uL Lymph # (Auto) 1.22 (1.2-3.4) K/uL [place] # (Auto) 1.49 H (0.11-0.59) K/uL Eos # (Auto) 0.01 (0-0.50) K/uL Baso # (Auto) 0.08 (0-0.2) K/uL Immature Gran # (Auto) 0.03 (0.01-0.20) K/uL Sodium 136 (136-145) mmol/L Potassium 3.5 (3.5-5.1) mmol/L Chloride 92 L (98-107) mmol/L Carbon Dioxide 32 (21-32) mmol/L Anion Gap 12 H (3-11) BUN 8 (6-23) mg/dl Creatinine 0.81 (0.6-1.4) mg/dl Est Cr Clr Drug Dosing 88.4 ml/min Est GFR ( Amer) 110.4 ml/min Est GFR (Non-Af Amer) 95.3 ml/min BUN/Creatinine Ratio 9.9 L (10-20) Glucose 106 H (70-99(Fasting)) mg/dl Calcium 10.0 (8.5-10.1) mg/dl Magnesium 2.1 (1.7-2.4) mg/dl Total Bilirubin 0.4 (0.2-1.0) mg/dl AST 12 L (13-39) U/L ALT 10 (7-52) U/L Alkaline Phosphatase 88 (34-104) U/L Troponin I High Sens 7.0 (0-20) pg/ml B-Natriuretic Peptide 19 (0-100) pg/ml Total Protein 9.1 H (6.0-8.3) gm/dl Albumin 4.5 (3.4-5.0) gm/dl Globulin 4.6 H (2.5-4.0) gm/dl Albumin/Globulin Ratio 1.0 (0.9-2) Procalcitonin (0-0.5) ng/ml SARS-CoV-2 (PCR) (Negative) Influenza Type A (PCR) (Neg) Influenza Type B (PCR) (Neg) RSV (RT-PCR) (Neg) 06/05/22 06/05/22 06/05/22 Range/Units 10:53 10:53 10:53 WBC (4.8-10.8) K/ul RBC (4.70-6.10) M/uL Hgb (14.0-18.0) g/dl Hct (42.0-52.0) % MCV (80.0-100.0) fL MCH (25.0-34.0) pg MCHC (32.0-36.0) g/dL RDW Std Deviation (36.4-46.3) fL RDW Coeff of Lashanda (11.5-14.5) % Plt Count (130-400) K/uL MPV (9.4-12.4) fL Immature Gran % (Auto) % Neut % (Auto) % Lymph % (Auto) % [place] % (Auto) % Eos % (Auto) % Baso % (Auto) % Neut # (Auto) (1.40-6.50) K/uL Lymph # (Auto) (1.2-3.4) K/uL [place] # (Auto) (0.11-0.59) K/uL Eos # (Auto) (0-0.50) K/uL Baso # (Auto) (0-0.2) K/uL Immature Gran # (Auto) (0.01-0.20) K/uL Sodium (136-145) mmol/L Potassium (3.5-5.1) mmol/L Chloride (98-107) mmol/L Carbon Dioxide (21-32) mmol/L Anion Gap (3-11) BUN (6-23) mg/dl Creatinine (0.6-1.4) mg/dl Est Cr Clr Drug Dosing ml/min Est GFR ( Amer) ml/min Est GFR (Non-Af Amer) ml/min BUN/Creatinine Ratio (10-20) Glucose (70-99(Fasting)) mg/dl Calcium (8.5-10.1) mg/dl Magnesium Cancelled (1.7-2.4) mg/dl Total Bilirubin (0.2-1.0) mg/dl AST (13-39) U/L ALT (7-52) U/L Alkaline Phosphatase (34-104) U/L Troponin I High Sens (0-20) pg/ml B-Natriuretic Peptide (0-100) pg/ml Total Protein (6.0-8.3) gm/dl Albumin (3.4-5.0) gm/dl Globulin (2.5-4.0) gm/dl Albumin/Globulin Ratio (0.9-2) Procalcitonin < 0.05 (0-0.5) ng/ml SARS-CoV-2 (PCR) POSITIVE A* (Negative) Influenza Type A (PCR) Negative (Neg) Influenza Type B (PCR) Negative (Neg) RSV (RT-PCR) Negative (Neg) Administered Medications Discontinued Medications Albuterol (Albut/Ipratrop 3mg/0.5mg Neb 3 Ml Vial) 12 ml INH ONE STA Stop: 06/05/22 10:50 Last Admin: 06/05/22 11:18 Dose: 12 ml Documented By: [facility] Guaifenesin (Guaifenesin 600 Mg Tabcr) 1,200 mg PO NOW STA Stop: 06/05/22 11:17 Last Admin: 06/05/22 11:39 Dose: 1,200 mg Documented By: [facility] Sodium Chloride (Nss 1000ml) 1,000 mls @ 999 mls/hr IV .Q1H1M ONE Stop: 06/05/22 12:12 Last Infusion: 06/05/22 12:30 Dose: 0 mls/hr Documented By: Admin: 06/05/22 11:23 Dose: 999 mls/hr Documented By: [facility] Sodium Chloride (Nss 1000ml) 1,000 mls @ 999 mls/hr IV .Q1H1M ONE Stop: 06/05/22 12:58 Last Infusion: 06/05/22 13:31 Dose: 0 mls/hr Documented By: Admin: 06/05/22 12:28 Dose: 999 mls/hr Documented By: [facility] Acetaminophen (Ofirmev) 1,000 mg in 100 mls @ 400 mls/hr IV NOW STA Stop: 06/05/22 13:37 Last Infusion: 06/05/22 13:48 Dose: 0 mls/hr Documented By: Admin: 06/05/22 13:29 Dose: 400 mls/hr Documented By: Methylprednisolone (Methylprednisolone 125 Mg/2 Ml Vial) 125 mg IV NOW STA Stop: 06/05/22 11:01 Last Admin: 06/05/22 11:23 Dose: 125 mg Documented By: [facility] Imaging Data Radiologist's Impression: Chest X-Ray 06/05/22 10:49 XR chest 1V portable HISTORY: 62 years-old Male Dyspnea acute shortness of breath COMPARISON: CTA chest 02/09/2022 TECHNIQUE: AP view of the chest FINDINGS: Severe emphysema with chronic interstitial coarsening. Cardiomediastinal no pneumothorax, pleural effusion, airspace consolidation or overt pulmonary edema. Degenerative changes of the shoulders and spine. IMPRESSION: No acute process. ACT 112: Negative or not required by law. The above report was generated using voice recognition software. It may contain grammatical, syntax or spelling errors. Electronically signed by: Pedro Luis Mahmood M.D. 06/05/2022 11:24 AM Discharge Plan Visit Data Chief Complaint: Shortness of Breath/Dyspnea ED Provider: Umair Knutson ED Midlevel Provider: Lita Horvath Discharge Problem: Respiratory failure, acute and chronic, COVID-19, COPD exacerbation, Dehydration, Sinus tachycardia Forms Stand Alone Forms: [facility] [employer] Prescriptions Prescriptions: No Action aspirin 81 mg Tablet,Delayed Release (Dr/Ec) 81 mg PO QAM albuterol sulfate [Ventolin HFA] 90 mcg/actuation Hfa Aerosol Inhaler 2 puff INHALATION QID PRN (Reason: Shortness Of Breath Or Wheezing) rosuvastatin [Crestor] 20 mg Tablet 20 mg PO QAM Centrum 18-400 mg-mcg Tablet 1 tab PO QAM Trelegy Ellipta 100-62.5-25 mcg Blister With Device 1 inh INHALATION HS benzonatate 100 mg Capsule 100 mg PO TID Qty: 30 0RF prednisone 10 mg tablet 10 mg PO UD Qty: 18 0RF Rx Instructions: 3 p.o. daily for 3 days, 2 p.o. daily for 3 days and then 1 daily for 3 days albuterol sulfate 2.5 mg /3 mL (0.083 %) Solution For Nebulization 2.5 mg INHALATION Q4 PRN (Reason: Shortness Of Breath) Qty: 50 0RF doxycycline hyclate 100 mg Capsule 100 mg PO BID Qty: 12 0RF Robitussin Cough-Chest Tom DM 10-200 mg capsule 1 tab-cap PO Q8H PRN (Reason: cough) Qty: 7 0RF Referrals Referrals: Edelmira Cavanaugh MD [Primary Care Provider] - Respiratory failure, acute and chronic Qualifiers: Respiratory failure complication: unspecified whether with hypoxia or hypercapnia Qualified Code(s): J96.20 - Acute and chronic respiratory failure, unspecified whether with hypoxia or hypercapnia
--- NOTE | 2022-06-05 11:26 | XRay Report ---
XR chest 1V portable HISTORY: 62 years-old Male Dyspnea acute shortness of breath COMPARISON: CTA chest 02/09/2022 TECHNIQUE: AP view of the chest FINDINGS: Severe emphysema with chronic interstitial coarsening. Cardiomediastinal no pneumothorax, pleural eff usion, airspace consolidation or overt pulmonary edema. Degenerative changes of the shoulders and spi ne. IMPRESSION: No acute process. ACT 112: Negative or not required by law. The above report was generated using voice recognition software. It may contain grammatical, syntax o r spelling errors. Electronically signed by: Pedro Luis Mahmood M.D. 06/05/2022 11:24 AM
[2022-06-05 11:37] LABS: Albumin Level 4.5 gm/dl (3.4-5.0); BUN Creatinine Ratio 9.9 (10-20); Bilirubin,Total 0.4 mg/dl (0.2-1.0); Creatinine Clr Calc Pharmacy 88.4 ml/min; Est GFR (African American) 110.4 ml/min; Est GFR (Non-African American) 95.3 ml/min; Globulin 4.6 gm/dl (2.5-4.0); Magnesium 2.1 mg/dl (1.7-2.4); Potassium 3.5 mmol/L (3.5-5.1); Total Protein 9.1 gm/dl (6.0-8.3)
[2022-06-05 11:55] LABS: Basophils # (auto) 0.08 K/uL (0-0.2); Basophils % (auto) 0.8 %; Eosinophils # (auto) 0.01 K/uL (0-0.50); Eosinophils % (auto) 0.1 %; Hematocrit (blood only) 45.9 % (42.0-52.0); Immature Granulocytes # (auto) 0.03 K/uL (0.01-0.20); Immature Granulocytes % (auto) 0.3 %; Lymphocytes # (auto) 1.22 K/uL (1.2-3.4); Lymphocytes % (auto) 11.4 %; Mean Corpuscular Hgb Conc 32.7 g/dL (32.0-36.0); Mean Corpuscular Volume 91.8 fL (80.0-100.0); Mean Platelet Volume 10.8 fL (9.4-12.4); Monocytes # (auto) 1.49 K/uL (0.11-0.59); Neutrophils # (auto) 7.83 K/uL (1.40-6.50); Neutrophils % (auto) 73.4 %; Platelet Count 308 K/uL (130-400); White Blood Count 10.66 K/ul (4.8-10.8)
[2022-06-05 12:26] LABS: Influenza A virus by PCR Negative (Neg); Influenza B virus by PCR Negative (Neg); RSV by PCR Negative (Neg)
[2022-06-05 12:55] LABS: SARS CoV2 RNA(COVID-19) Ceph POSITIVE (Negative)
[2022-06-05] MEDS ORDERED: ACETAMINOPHEN 1,000 MG/100 ML VIAL IV STA (13:23)
--- NOTE | 2022-06-05 14:23 | History & Physical Report ---
Date of Service June 05, 2022 Assessment & Plan (1) COVID-19: (2) COPD exacerbation: Plan: Admit to [facility] with telemetry Patient presenting from home with reports of increasing shortness of breath x 2 days and palpitations In the ED, patient tested positive for COVID-19. History of COVID-19 infection 05/2021 with subsequent negative tests 01/23/2022 and 02/23/2022. Vaccinated x 4 with last booster dose 11/2021. Tachycardic in the 140s on presentation, improved after IVF. Patient continues to saturate well on chronic 2 L of oxygen. Afebrile, no leukocytosis, procalcitonin < 0.05. No infiltrate seen on CXR. Will hold on remdesivir therapy for now, consider adding tomorrow if no improvement S/p Solu-Medrol 125 mg IV in the ED, continue with Solu-Medrol 40 mg IV q8h Given underlying COPD, will provide empiric doxycycline Pulmonary toilet with nebs, Mucinex, flutter valve, incentive spirometer (3) Hyperlipemia: Plan: Continue statin DVT PROPHYLAXIS SQ Lovenox I spent a total of 60 minutes coordinating, documenting, and providing care for this patient excluding time spent in the performance of separately billed services. This included personally reviewing all current laboratories and imaging studies, medication reconciliation, outpatient chart review, and discussion with specialists. History of Present Illness Chief Complaint: Shortness of breath, palpitations Primary Care Provider: Edelmira Cavanaugh MD 62-year-old male with PMH COPD on chronic 2 L of oxygen, pulmonary nodules, dyslipidemia, and other problems listed below who presents to the ED for evaluation of shortness of breath and palpitations. Patient reports increasing shortness of breath over the past 2 days. Patient reports that shortness of breath at rest and with minimal exertion. He reports a nonproductive cough. Overnight, patient woke up noting he had heart palpitations. He then presented to the ER around 8 AM this morning. Patient denies chest pain. He reports lightheadedness and dizziness however no syncopal event. He has had a poor appetite but denies abdominal pain, nausea, vomiting, diarrhea. No fevers or chills. Denies urinary symptoms. In the ED, patient tested positive for COVID- 19. He is tachycardic that improved after IVF. He is saturating well on his chronic 2 L of oxygen. Patient also received IV Tylenol, nebulizer treatment, guaifenesin, IV Solu-Medrol. Allergies Allergy/AdvReac Type Severity Reaction Status Date / Time No Known Allergies Allergy Verified 02/09/22 02:49 Home Medications Medication Instructions Recorded Confirmed Type albuterol sulfate 90 mcg/actuation 2 puff inhalation QID PRN 06/15/18 06/05/22 History aerosol inhaler (Ventolin HFA) Shortness Of Breath Or Wheezing aspirin 81 mg tablet,delayed 81 mg PO QAM 06/15/18 06/05/22 History release multivitamin-ferrous 1 tab PO QAM 06/15/18 06/05/22 History fumarate-folic acid 18 mg-400 mcg tablet (Centrum) rosuvastatin 20 mg tablet (Crestor) 20 mg PO QAM 06/15/18 06/05/22 History fluticasone fur. 100 mcg-umeclid 1 inh inhalation HS 04/26/19 06/05/22 History 62.5 mcg-vilant 25 mcg inhalat.powder (Trelegy Ellipta) albuterol sulfate 2.5 mg/3 mL 2.5 mg (3 mL) inhalation Q4 PRN 02/15/22 06/05/22 Rx (0.083 %) solution for nebulization Shortness Of Breath #50 mL Past Med/Surg History Medical History Colon adenoma COPD (chronic obstructive pulmonary disease) inhaler/nebulizer/oxygen Hyperlipidemia On home oxygen therapy 2L N/C hs and prn Surgical History H/O rotator cuff surgery History of arthroscopy of right shoulder History of bronchoscopy History of colonoscopy with polypectomy History of mandibular surgery History of tooth extraction all teeth Family History Mother Lung cancer Other No family history of adverse response to anesthesia Social History Smoking Status: Current some day smoker Tobacco Type: Cigarettes Cigarettes Per Day: 40; Second Hand Exposure: Yes (parents smoked/ smokes); Hx Alcohol Use: No Hx Substance Use: No Preferred Language: Samoan Communication Ability: Effective [employer] Admissions Representative Required: No Beliefs That Will Affect Care: None marital status: Current Living Situation: Spouse current occupational status: unemployed and disabled Feels Safe at Home: Yes Assistive Devices: Glasses Review of Systems Review of Systems: ROS per HPI, all other systems reviewed and negative Physical Exam Constitutional: WD/WN, vitals as above no acute distress Eyes: PERRL, conjunctivae normal, anicteric sclerae ENMT: external ear and nose normal, oropharynx normal Respiratory: normal respiratory effort; no respiratory distress Auscultation: + diminished lung sounds Cardiovascular: Rate/Rhythm: regular rhythm and + tachycardic Vessels: normal peripheral pulses Extremities: no edema Gastrointestinal (Abdomen): normal bowel sounds, soft, nontender, no hepatosplenomegaly Musculoskeletal: no cyanosis or clubbing, extremities motor strength 5/5 Skin: no rashes, warm and dry Neurologic: PERRL, EOMI, accommodation nl, no face palsy, no dysarthria Psychiatric: A+Ox3, euthymic affect Results & Data Results & Data ([facility]) Vital Signs (Past 12 Hours) Vital Signs Temp Pulse Pulse Resp BP BP Pulse Ox 06/05/22 14:01 96 H 24 133/81 96 06/05/22 13:29 36.6 C 06/05/22 13:07 36.6 C 06/05/22 12:43 107 H 24 131/89 2 L 06/05/22 11:23 98 06/05/22 11:23 129 H 28 H 117/90 98 06/05/22 11:19 119 H 18 95 06/05/22 10:56 140 H 06/05/22 10:49 97 06/05/22 10:43 37.0 C 141 H 33 H 158/98 H 95 O2 Del Method O2 Flow Rate 06/05/22 14:01 Nasal Cannula 2 06/05/22 13:29 06/05/22 13:07 06/05/22 12:43 Nasal Cannula 06/05/22 11:23 Nebulizer 06/05/22 11:23 Nebulizer 06/05/22 11:19 Nasal Cannula 3 06/05/22 10:56 06/05/22 10:49 Nasal Cannula 4 06/05/22 10:43 Nasal Cannula 4 Laboratory Results Short CBC 06/05/22 Range/Units 10:53 WBC 10.66 (4.8-10.8) K/ul Hgb 15.0 (14.0-18.0) g/dl Hct 45.9 (42.0-52.0) % Plt Count 308 (130-400) K/uL BMP 06/05/22 10:53 Sodium 136 Potassium 3.5 Chloride 92 L Carbon Dioxide 32 BUN 8 Creatinine 0.81 Glucose 106 H Calcium 10.0 Liver Function 06/05/22 Range/Units 10:53 Total Bilirubin 0.4 (0.2-1.0) mg/dl AST 12 L (13-39) U/L ALT 10 (7-52) U/L Alkaline Phosphatase 88 (34-104) U/L Albumin 4.5 (3.4-5.0) gm/dl Diagnostic Findings Chest X-Ray 06/05/22 10:49 XR chest 1V portable HISTORY: 62 years-old Male Dyspnea acute shortness of breath COMPARISON: CTA chest 02/09/2022 TECHNIQUE: AP view of the chest FINDINGS: Severe emphysema with chronic interstitial coarsening. Cardiomediastinal no pneumothorax, pleural effusion, airspace consolidation or overt pulmonary edema. Degenerative changes of the shoulders and spine. IMPRESSION: No acute process. ACT 112: Negative or not required by law. The above report was generated using voice recognition software. It may contain grammatical, syntax or spelling errors. Electronically signed by: Pedro Luis Mahmood M.D. 06/05/2022 11:24 AM Code Status & VTE Plan Code Status Patient is a full code as per my discussion with him. Supervising Physician Co-Signing Physician Notes Patient is a 62-year-old male with history of COPD, chronic respiratory failure with hypoxia, dyslipidemia and other medical problems presents with history of worsening shortness of breath, cough, chest tightness since 3 to 4 days duration. He also states having intermittent wheezes. He has been having mild dizziness but no syncope. He was tested positive for COVID while in ED. States being vaccinated for COVID. Please review HPI for complete details of presentation. I personally reviewed blood work, imaging studies and EKG.Chest x-ray showed no signs of pneumonia. On exam patient is thin, frail, chronically appearing, no apparent distress, normocephalic atraumatic, EOMI, decreased breath sounds, clear to auscultation, S1-S2, no murmur, no pedal edema, abdomen soft, nontender, normal bowel sounds, alert, awake, oriented, grossly no focal deficits,+ multiple tattoos noted. Patient is admitted for management of COVID- 19 infection, COPD exacerbation, chronic respiratory failure with hypoxia. Started on Solu-Medrol, doxycycline, nebs. Continue supplemental oxygen. Discussed about remdesivir. Currently patient prefers to wait and decide if symptoms worsen. Pulmonary hygiene. Continue supplemental oxygen to keep sats 88 to 92%. Antitussives as needed. Continue home Trelegy. I personally reviewed the record. Patient is interviewed and examined at bedside. 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 Please refer to the documentation above for details of patient's presentation and for discussion of other issues.
[2022-06-05] MEDS ORDERED: SODIUM CHLORIDE 0.9% 1000ML 1,000 ML IV SCH (14:51)
[2022-06-05] MEDS ORDERED: ALBUT/IPRATROP 3MG/0.5MG NEB 3 ML VIAL NEB SCH (15:00)
[2022-06-05] MEDS: ENOXAPARIN INJ 40 MG/0.4 ML SYR SQ SCH (16:33)
[2022-06-05] MEDS: guaiFENesin 600 MG TABCR PO SCH (19:48)
[2022-06-05] MEDS: methylPREDNISolone 40 MG in SYRINGE 0 ML IV SCH (19:48)
[2022-06-05] MEDS: DOXYCYCLINE HYCLATE 100 MG CAP PO SCH (19:48)
[2022-06-05] MEDS: ALBUT/IPRATROP 3MG/0.5MG NEB 3 ML VIAL NEB SCH (20:08)
[2022-06-05] MEDS: MELATONIN 3 MG TAB PO PRN (20:19)
[2022-06-05] MEDS ORDERED: guaiFENesin 600 MG TABCR PO SCH (21:00)
[2022-06-06] MEDS: methylPREDNISolone 40 MG in SYRINGE 0 ML IV SCH ×3 (02:56→19:01)
--- NOTE | 2022-06-06 05:20 | Electrocardiogram Report ---
Test Reason : Blood Pressure : / mmHG Vent. Rate : 141 BPM Atrial Rate : 141 BPM P-R Int : 140 ms QRS Dur : 072 ms QT Int : 268 ms P-R-T Axes : 082 054 081 degrees QTc Int : 410 ms Poor data quality, interpretation may be adversely affected Sinus tachycardia Biatrial enlargement Nonspecific ST and T wave abnormality Abnormal ECG When compared with ECG of 09-FEB-2022 02:43, No significant change was found Confirmed by Moncho Logan ([id number]) on 06/06/2022 5:19:39 AM Referred By: REFERRED SELF Confirmed By:Moncho Logan
[2022-06-06] MEDS: ALBUT/IPRATROP 3MG/0.5MG NEB 3 ML VIAL NEB SCH ×5 (06:52→23:10)
[2022-06-06] MEDS: ASPIRIN 81 MG ECTAB PO SCH (08:09)
[2022-06-06] MEDS: guaiFENesin 600 MG TABCR PO SCH ×2 (08:09→20:46)
[2022-06-06] MEDS: DOXYCYCLINE HYCLATE 100 MG CAP PO SCH ×2 (08:09→20:47)
[2022-06-06] MEDS: ROSUVASTATIN CALCIUM 20 MG TAB PO SCH (08:09)
[2022-06-06 08:11] LABS: Hematocrit (blood only) 39.1 % (42.0-52.0); Mean Corpuscular Hemoglobin 30.2 pg (25.0-34.0); Mean Corpuscular Hgb Conc 33.2 g/dL (32.0-36.0); Mean Corpuscular Volume 90.9 fL (80.0-100.0); Mean Platelet Volume 10.7 fL (9.4-12.4); Platelet Count 258 K/uL (130-400); RDW Coefficient of Variation 12.4 % (11.5-14.5); RDW Standard Deviation 41.1 fL (36.4-46.3); White Blood Count 11.38 K/ul (4.8-10.8)
[2022-06-06] MEDS: UMECLIDINIUM/VILANTEROL 62.5/25MCG 7 PUFFS/INHALER INH SCH (08:11)
[2022-06-06] MEDS: FLUTICASONE FUROATE 100MCG 14 PUFFS/INHALER INH SCH (08:11)
[2022-06-06 08:17] LABS: BUN Creatinine Ratio 15.1 (10-20); C Reactive Protein 11.08 mg/dl (0-0.5); Calcium 9.6 mg/dl (8.5-10.1); Creatinine Clr Calc Pharmacy 135.1 ml/min; Est GFR (African American) 131.4 ml/min; Est GFR (Non-African American) 113.4 ml/min; Magnesium 2.1 mg/dl (1.7-2.4); Potassium 3.9 mmol/L (3.5-5.1)
[2022-06-06] MEDS ORDERED: REMDESIVIR 200 MG in SODIUM CHLORIDE 0.9% 210 ML IV STA (13:44)
--- NOTE | 2022-06-06 13:53 | Hospitalist Progress Note ---
Date of Service June 06, 2022 Assessment & Plan (1) COVID-19: (2) COPD exacerbation: Plan: COVID-19 infection Acute COPD exacerbation secondary to above H/O COVID-19 infection 05/2021 with subsequent negative tests 01/23/2022 and 02/23/2022. Vaccinated x 4 with last booster dose 11/2021. Acute on chronic respiratory failure with hypoxia--on 2 L of oxygen at baseline Symptom onset 3 days ago as per patient Chest x-ray:No acute process. Serology for influenza, RSV negative CRP 11.08 Procalcitonin <0.05 -- Started on remdesivir today (understands and agrees with risks and complications) Continue steroids, nebs Continue supplemental oxygen to keep saturations 88 to 92% Empirically on doxycycline Continue pulmonary hygiene Antitussives as needed Monitor renal function, LFTs while on remdesivir Diarrhea Likely secondary to above Stool studies pending We will consider Imodium as needed if stool studies negative (3) Hyperlipemia: Plan: Continue statin DVT Px SQ Lovenox CODE STATUS Full code Admission and Anticipated Discharge Date Admission Date: June 05, 2022 Subjective Patient is seen and examined at bedside States having diarrhea and back pain today Had 3 loose bowel movements Dyspnea better today Still has cough with yellowish expectoration Reports poor appetite No other complaints Denies any chest pain, abdominal pain, nausea, vomiting Interested in getting remdesivir Review of Systems Review of Systems: All systems reviewed & are unremarkable except as noted in Subjective Physical Exam Physical Exam: Physical Exam: Vitals signs as noted above General Appearance:Thin, chronic ill appearing, no apparent distress Head: normocephalic, Atraumatic Eyes: normal inspection, EOMI Neck: supple, Trachea midline Respiratory/Chest: Decreased breath sounds, scattered wheezes, No accessory muscle use Cardiovascular: S1, S2, No murmur Abdomen/GI:Soft, Non tender, Bowel sounds present Extremities/Musculoskeletal:normal inspection, no edema Neurologic/Psych:AAOX3, grossly no focal neurological deficits Skin: normal color, warm,+ multiple tattoos Results & Data Results & Data ([facility]) Vital Signs (Past 12 Hours) Vital Signs Temp Pulse Pulse Resp BP Pulse Ox O2 Del Method 06/06/22 11:38 91 H 22 94 Nasal Cannula 06/06/22 11:38 Nasal Cannula 06/06/22 08:04 36.4 C L 91 H 16 147/81 H 94 Nasal Cannula 06/06/22 07:25 80 06/06/22 06:52 83 18 97 Nasal Cannula 06/06/22 04:00 36.5 C 81 18 135/87 93 Nasal Cannula O2 Flow Rate 06/06/22 11:38 2 06/06/22 11:38 2 06/06/22 08:04 1 06/06/22 07:25 06/06/22 06:52 2 06/06/22 04:00 2 Laboratory Results Short CBC 06/06/22 Range/Units 07:19 WBC 11.38 H (4.8-10.8) K/ul Hgb 13.0 L (14.0-18.0) g/dl Hct 39.1 L (42.0-52.0) % Plt Count 258 (130-400) K/uL BMP 06/06/22 07:19 Sodium 140 Potassium 3.9 Chloride 104 Carbon Dioxide 32 BUN 8 Creatinine 0.53 L Glucose 145 H Calcium 9.6
[2022-06-06] MEDS: ACETAMINOPHEN 325 MG TAB PO PRN ×2 (14:47→20:47)
[2022-06-06] MEDS: ENOXAPARIN INJ 40 MG/0.4 ML SYR SQ SCH (14:49)
[2022-06-06] MEDS ORDERED: ALBUT/IPRATROP 3MG/0.5MG NEB 3 ML VIAL NEB SCH (16:00)
[2022-06-06] MEDS: MELATONIN 3 MG TAB PO PRN (20:46)
[2022-06-06 22:12] LABS: Adenovirus F 40/41 PCR Not Detected (NotDetected); Astrovirus PCR Not Detected (NotDetected); Campylobacter PCR Not Detected (NotDetected); Cryptosporidium PCR Not Detected (NotDetected); Cyclospora cayetanensis PCR Not Detected (NotDetected); Entamoeba histolytica PCR Not Detected (NotDetected); Enteroaggregative E.coli(EAEC) Not Detected (NotDetected); Enteropathogenic E.coli (EPEC) Not Detected (NotDetected); Enterotoxigenic E.coli (ETEC) Not Detected (NotDetected); Giardia lamblia PCR Not Detected (NotDetected); Norovirus GI/GII PCR Not Detected (NotDetected); Plesiomonas shigelloides PCR Not Detected (NotDetected); Rotavirus A PCR Not Detected (NotDetected); Salmonella PCR Not Detected (NotDetected); Sapovirus PCR Not Detected (NotDetected); Shiga-like Toxin E.coli (STEC) Not Detected (NotDetected); Shigella/Enteroinvasive E.coli Not Detected (NotDetected); Vibrio cholerae PCR Not Detected (NotDetected); Vibrio species PCR Not Detected (NotDetected); Yersinia enterocolitica PCR Not Detected (NotDetected)
[2022-06-07] MEDS: ALBUT/IPRATROP 3MG/0.5MG NEB 3 ML VIAL NEB SCH ×6 (03:17→23:32)
[2022-06-07] MEDS: methylPREDNISolone 40 MG in SYRINGE 0 ML IV SCH ×3 (03:49→18:00)
[2022-06-07 06:56] LABS: Hematocrit (blood only) 39.4 % (42.0-52.0); Hemoglobin 12.8 g/dl (14.0-18.0); Mean Corpuscular Hemoglobin 29.8 pg (25.0-34.0); Mean Corpuscular Hgb Conc 32.5 g/dL (32.0-36.0); Mean Corpuscular Volume 91.8 fL (80.0-100.0); Mean Platelet Volume 11.2 fL (9.4-12.4); Platelet Count 279 K/uL (130-400); RDW Coefficient of Variation 13.1 % (11.5-14.5); RDW Standard Deviation 43.9 fL (36.4-46.3); Red Blood Count 4.29 M/uL (4.70-6.10); White Blood Count 19.49 K/ul (4.8-10.8)
[2022-06-07 07:35] LABS: Basophils # (auto) 0.03 K/uL (0-0.2); Basophils % (auto) 0.2 %; Immature Granulocytes # (auto) 0.13 K/uL (0.01-0.20); Immature Granulocytes % (auto) 0.7 %; Lymphocytes # (auto) 0.61 K/uL (1.2-3.4); Lymphocytes % (auto) 3.1 %; Monocytes % (auto) 3.1 %; Neutrophils # (auto) 18.12 K/uL (1.40-6.50); Neutrophils % (auto) 92.9 %
[2022-06-07] MEDS: FLUTICASONE FUROATE 100MCG 14 PUFFS/INHALER INH SCH (08:13)
[2022-06-07] MEDS: ROSUVASTATIN CALCIUM 20 MG TAB PO SCH (08:14)
[2022-06-07] MEDS: guaiFENesin 600 MG TABCR PO SCH ×2 (08:14→20:02)
[2022-06-07] MEDS: DOXYCYCLINE HYCLATE 100 MG CAP PO SCH ×2 (08:14→20:02)
[2022-06-07] MEDS: ASPIRIN 81 MG ECTAB PO SCH (08:14)
[2022-06-07] MEDS: UMECLIDINIUM/VILANTEROL 62.5/25MCG 7 PUFFS/INHALER INH SCH (08:14)
[2022-06-07] MEDS: ACETAMINOPHEN 325 MG TAB PO PRN ×2 (08:21→20:02)
[2022-06-07 08:22] LABS: Albumin Level 3.6 gm/dl (3.4-5.0); Bilirubin,Total 0.2 mg/dl (0.2-1.0); Calcium 9.5 mg/dl (8.5-10.1); Magnesium 2.1 mg/dl (1.7-2.4); Potassium 3.8 mmol/L (3.5-5.1)
[2022-06-07 08:40] LABS: BUN Creatinine Ratio 19.6 (10-20); Creatinine Clr Calc Pharmacy 127.9 ml/min; Est GFR (African American) 128.5 ml/min; Est GFR (Non-African American) 110.9 ml/min; Globulin 3.6 gm/dl (2.5-4.0); Total Protein 7.2 gm/dl (6.0-8.3)
[2022-06-07] MEDS: REMDESIVIR 100 MG in SODIUM CHLORIDE 0.9% 230 ML IV SCH (11:23)
[2022-06-07] MEDS: ENOXAPARIN INJ 40 MG/0.4 ML SYR SQ SCH (15:48)
--- NOTE | 2022-06-07 16:04 | Hospitalist Progress Note ---
Date of Service June 07, 2022 Assessment & Plan (1) COVID-19: (2) COPD exacerbation: Plan: COVID-19 infection Acute COPD exacerbation secondary to above H/O COVID-19 infection 05/2021 with subsequent negative tests 01/23/2022 and 02/23/2022. Vaccinated x 4 with last booster dose 11/2021. Acute on chronic respiratory failure with hypoxia--on 2 L of oxygen at baseline, transiently required upto 4L this admission. 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 Serology for influenza, RSV negative CRP 11.08 Procalcitonin <0.05 -- Started on remdesivir 06/06 (understands and agrees with risks and complications) Continue steroids, nebs Continue supplemental oxygen to keep saturations 88 to 92% Empirically on doxycycline Continue pulmonary hygiene Antitussives as needed Monitor renal function, LFTs while on remdesivir Diarrhea: likely viral, resolved. (3) Hyperlipemia: Plan: Continue statin DVT Px: SQ Lovenox CODE STATUS: Full code Admission and Anticipated Discharge Date Admission Date: June 05, 2022 Subjective Patient seen and examined at bedside as a follow-up COVID-19 infection and COPD exacerbation. Patient was lying in bed, on 2 L oxygen via nasal cannula, NAD, reports no new acute event overnight, reports improving diarrhea -currently with pulmonary stool palpation, reports improving appetite, reports cough about the same, denies headache or dizziness or chest pain or belly pain. Physical Exam Physical Exam: GENERAL: Alert and oriented x3. NAD, on 2L NC O2 HEENT: No pallor, no icterus. Pupils equal, round and reactive to light. Oral mucosa moist. NECK: No JVD, no neck masses. HEART: S1 and S2 heard. Regular rate and rhythm. No murmur, no gallop. RESPIRATORY SYSTEM: Normal AP diameter. No accessory muscle use. occ wheezing, no crackles. ABDOMEN: Soft, bowel sounds present, nontender, no distention. CENTRAL NERVOUS SYSTEM: No facial droop. Speech is clear. Obeys simple commands. Moves extremities. EXTREMITIES: No edema, no erythema seen. Results & Data Results & Data ([facility]) Vital Signs (Past 12 Hours) Vital Signs Temp Pulse Pulse Resp BP Pulse Ox O2 Del Method 06/07/22 15:25 96 H 06/07/22 15:09 102 H 18 96 Nasal Cannula 06/07/22 12:34 36.5 C 102 H 18 138/83 96 Room Air 06/07/22 11:16 99 H 20 96 Nasal Cannula 06/07/22 08:29 Nasal Cannula 06/07/22 08:17 36.4 C L 108 H 18 143/92 H 95 Nasal Cannula 06/07/22 07:33 92 H 18 94 Nasal Cannula O2 Flow Rate 06/07/22 15:25 06/07/22 15:09 2 06/07/22 12:34 06/07/22 11:16 2 06/07/22 08:29 2 06/07/22 08:17 2 06/07/22 07:33 2
[2022-06-07] MEDS: MELATONIN 3 MG TAB PO PRN (20:02)
[2022-06-08] MEDS: ALBUT/IPRATROP 3MG/0.5MG NEB 3 ML VIAL NEB SCH ×5 (02:17→19:07)
[2022-06-08] MEDS: methylPREDNISolone 40 MG in SYRINGE 0 ML IV SCH (02:53)
[2022-06-08 07:32] LABS: Hematocrit (blood only) 40.5 % (42.0-52.0); Hemoglobin 13.3 g/dl (14.0-18.0); Mean Corpuscular Hemoglobin 29.8 pg (25.0-34.0); Mean Corpuscular Hgb Conc 32.8 g/dL (32.0-36.0); Mean Corpuscular Volume 90.8 fL (80.0-100.0); Mean Platelet Volume 11.1 fL (9.4-12.4); Platelet Count 302 K/uL (130-400); RDW Coefficient of Variation 13.2 % (11.5-14.5); RDW Standard Deviation 44.3 fL (36.4-46.3); Red Blood Count 4.46 M/uL (4.70-6.10); White Blood Count 15.38 K/ul (4.8-10.8)
[2022-06-08 07:33] LABS: BUN Creatinine Ratio 19.6 (10-20); Calcium 9.7 mg/dl (8.5-10.1); Creatinine Clr Calc Pharmacy 127.9 ml/min; Est GFR (African American) 128.5 ml/min; Est GFR (Non-African American) 110.9 ml/min; Potassium 3.5 mmol/L (3.5-5.1)
[2022-06-08] MEDS ORDERED: SODIUM CHLORIDE 0.9% 1000ML 1,000 ML IV SCH (07:45)
[2022-06-08] MEDS: DOXYCYCLINE HYCLATE 100 MG CAP PO SCH ×2 (07:52→20:34)
[2022-06-08] MEDS: BENZONATATE 100 MG CAPSULE PO PRN ×2 (07:52→15:52)
[2022-06-08] MEDS: ROSUVASTATIN CALCIUM 20 MG TAB PO SCH (07:53)
[2022-06-08] MEDS: ASPIRIN 81 MG ECTAB PO SCH (07:53)
[2022-06-08] MEDS: guaiFENesin 600 MG TABCR PO SCH ×2 (07:53→20:34)
[2022-06-08] MEDS: FLUTICASONE FUROATE 100MCG 14 PUFFS/INHALER INH SCH (07:54)
[2022-06-08] MEDS: UMECLIDINIUM/VILANTEROL 62.5/25MCG 7 PUFFS/INHALER INH SCH (07:54)
[2022-06-08] MEDS: REMDESIVIR 100 MG in SODIUM CHLORIDE 0.9% 230 ML IV SCH (11:51)
--- NOTE | 2022-06-08 15:01 | Hospitalist Progress Note ---
Date of Service June 08, 2022 Assessment & Plan (1) COVID-19: (2) COPD exacerbation: Plan: COVID-19 infection Acute COPD exacerbation secondary to above H/O COVID-19 infection 05/2021 with subsequent negative tests 01/23/2022 and 02/23/2022. Vaccinated x 4 with last booster dose 11/2021. Acute on chronic respiratory failure with hypoxia--on 2 L of oxygen at baseline, transiently required upto 4L this admission. 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 Serology for influenza, RSV negative CRP 11.08 Procalcitonin <0.05 -- Started on remdesivir 06/06 (understands and agrees with risks and complications) Continue steroids, nebs Continue supplemental oxygen to keep saturations 88 to 92% Empirically on doxycycline Continue pulmonary hygiene Antitussives as needed Monitor renal function, LFTs while on remdesivir Diarrhea: likely viral, resolved. (3) Hyperlipemia: Plan: Continue statin DVT Px: SQ Lovenox CODE STATUS: Full code DISPO: PT/OT to eval and CM to assist w/ DC plan. Admission and Anticipated Discharge Date Admission Date: June 05, 2022 Subjective Patient seen and examined at bedside as a follow-up COVID-19 infection and COPD exacerbation. Patient was lying in bed, on 2 L oxygen via nasal cannula, NAD, reports no new acute event overnight, reports resolution of diarrhea but his appetite is again poor today, was better yesterday. Per RN, pt is sob w/ exertion and is tachycardic. Pt reports feeling weak and complains of Rt upper belly pain, will get USG RUQ. reports cough about the same w/ yellow sputum, denies headache or dizziness or chest pain. Physical Exam Physical Exam: GENERAL: Alert and oriented x3. NAD, on 2L NC O2 HEENT: No pallor, no icterus. Pupils equal, round and reactive to light. Oral mucosa moist. NECK: No JVD, no neck masses. HEART: S1 and S2 heard. Regular rate and rhythm. No murmur, no gallop. RESPIRATORY SYSTEM: Normal AP diameter. No accessory muscle use. occ wheezing, no crackles. ABDOMEN: Soft, bowel sounds present, RUQ tender, no distention. CENTRAL NERVOUS SYSTEM: No facial droop. Speech is clear. Obeys simple commands. Moves extremities. EXTREMITIES: No edema, no erythema seen. Results & Data Results & Data ([facility]) Vital Signs (Past 12 Hours) Vital Signs Temp Pulse Pulse Resp BP Pulse Ox O2 Del Method 06/08/22 12:56 36.4 C L 106 H 16 159/77 H 95 Nasal Cannula 06/08/22 11:20 96 H 18 96 Nasal Cannula 06/08/22 10:25 Nasal Cannula 06/08/22 07:43 96 H 18 98 Nasal Cannula 06/08/22 07:30 88 06/08/22 06:43 36.8 C 85 18 145/84 H 97 Nasal Cannula 06/08/22 03:08 36.8 C 87 18 146/78 H 97 Nasal Cannula O2 Flow Rate 06/08/22 12:56 2 06/08/22 11:20 2 06/08/22 10:25 2 06/08/22 07:43 06/08/22 07:30 06/08/22 06:43 2 06/08/22 03:08 2
[2022-06-08] MEDS: DICLOFENAC SOD 1% GEL 100 GM TUBE EXT SCH ×2 (15:52→20:35)
[2022-06-08] MEDS: FAMOTIDINE 20 MG TAB PO SCH ×2 (15:52→20:34)
[2022-06-08] MEDS: ENOXAPARIN INJ 40 MG/0.4 ML SYR SQ SCH (17:33)
[2022-06-08] MEDS: ACETAMINOPHEN 325 MG TAB PO PRN (20:33)
[2022-06-08] MEDS: MELATONIN 3 MG TAB PO PRN (20:33)
[2022-06-08] MEDS ORDERED: methylPREDNISolone 40 MG in SYRINGE 0 ML IV SCH (21:00)
[2022-06-09] MEDS: DICLOFENAC SOD 1% GEL 100 GM TUBE EXT SCH ×5 (02:56→21:46)
[2022-06-09 07:39] LABS: Hematocrit (blood only) 39.6 % (42.0-52.0); Hemoglobin 13.1 g/dl (14.0-18.0); Mean Corpuscular Hemoglobin 29.7 pg (25.0-34.0); Mean Corpuscular Hgb Conc 33.1 g/dL (32.0-36.0); Mean Corpuscular Volume 89.8 fL (80.0-100.0); Mean Platelet Volume 10.9 fL (9.4-12.4); Platelet Count 274 K/uL (130-400); RDW Coefficient of Variation 13.1 % (11.5-14.5); RDW Standard Deviation 43.5 fL (36.4-46.3); Red Blood Count 4.41 M/uL (4.70-6.10); White Blood Count 11.04 K/ul (4.8-10.8)
[2022-06-09] MEDS: ALBUT/IPRATROP 3MG/0.5MG NEB 3 ML VIAL NEB SCH ×4 (07:48→19:24)
[2022-06-09 07:55] LABS: BUN Creatinine Ratio 25.5 (10-20); Calcium 9.5 mg/dl (8.5-10.1); Creatinine Clr Calc Pharmacy 130.2 ml/min; Est GFR (African American) 129.4 ml/min; Est GFR (Non-African American) 111.7 ml/min; Magnesium 2.2 mg/dl (1.7-2.4); Phosphorus 3.6 mg/dl (2.5-4.9); Potassium 3.9 mmol/L (3.5-5.1)
--- NOTE | 2022-06-09 08:58 | Ultrasound Report ---
ABDOMINAL ULTRASOUND, RIGHT UPPER QUADRANT HISTORY: Acute right upper quadrant abdominal pain RUQ tender. COMPARISON: 06/15/2018 FINDINGS: Pancreas: The pancreas demonstrates a normal echotexture. Liver: Hepatic cysts are redemonstrated measuring up to 1.8 cm. No solid hepatic mass lesions are lucas ntified.. Gallbladder: No gallbladder wall thickening. No gallstones. CBD: 0.5 cm Right kidney: No hydronephrosis. IMPRESSION: No significant abnormality identified within the right upper quadrant. ACT 112: Negative or not required by law. Electronically signed by: Pedro Luis Mahmood M.D. 06/09/2022 8:57 AM
[2022-06-09] MEDS: dexAMETHasone 4 MG TAB PO SCH (10:10)
[2022-06-09] MEDS: ROSUVASTATIN CALCIUM 20 MG TAB PO SCH (10:11)
[2022-06-09] MEDS: FAMOTIDINE 20 MG TAB PO SCH ×2 (10:11→21:45)
[2022-06-09] MEDS: ASPIRIN 81 MG ECTAB PO SCH (10:11)
[2022-06-09] MEDS: guaiFENesin 600 MG TABCR PO SCH ×2 (10:11→21:45)
[2022-06-09] MEDS: DOXYCYCLINE HYCLATE 100 MG CAP PO SCH ×2 (10:11→21:46)
[2022-06-09] MEDS: FLUTICASONE FUROATE 100MCG 14 PUFFS/INHALER INH SCH (10:12)
[2022-06-09] MEDS: UMECLIDINIUM/VILANTEROL 62.5/25MCG 7 PUFFS/INHALER INH SCH (10:12)
[2022-06-09] MEDS: REMDESIVIR 100 MG in SODIUM CHLORIDE 0.9% 230 ML IV SCH (12:22)
--- NOTE | 2022-06-09 14:47 | Hospitalist Progress Note ---
Date of Service June 09, 2022 Assessment & Plan (1) COVID-19: (2) COPD exacerbation: Plan: COVID-19 infection Acute COPD exacerbation secondary to above H/O COVID-19 infection 05/2021 with subsequent negative tests 01/23/2022 and 02/23/2022. Vaccinated x 4 with last booster dose 11/2021. Acute on chronic respiratory failure with hypoxia--on 2 L of oxygen at baseline, transiently required upto 4L this admission. 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 Serology for influenza, RSV negative CRP 11.08 Procalcitonin <0.05 -- Started on remdesivir 06/06 (understands and agrees with risks and complications) Continue steroids, nebs - to po decadron today. Famotidine for duration of steroid. Continue supplemental oxygen to keep saturations 88 to 92% Empirically on doxycycline Continue pulmonary hygiene Antitussives as needed Monitor renal function, LFTs while on remdesivir Diarrhea: likely viral, resolved. (3) Hyperlipemia: Plan: Continue statin HTN: BP chronically appears normal to higher side, will use small dose metoprolol and uptitrate or add other meds as appropriate. DVT Px: SQ Lovenox CODE STATUS: Full code DISPO: PT/OT to eval and CM to assist w/ DC plan. Admission and Anticipated Discharge Date Admission Date: June 05, 2022 Subjective Patient seen and examined at bedside as a follow-up COVID-19 infection and COPD exacerbation. Patient was lying in bed, on 2 L oxygen via nasal cannula, NAD, reports no new acute event overnight, reports eating ok and moving bowels ok, reports feeling better today, has been moving to and fro from restroom. Await PT/OT eval for DC determination. Reports cough about the same w/ now clear to yellow sputum, denies headache or dizziness or chest pain or other ROS. Physical Exam Physical Exam: GENERAL: Alert and oriented x3. NAD, on 2L NC O2 HEENT: No pallor, no icterus. Pupils equal, round and reactive to light. Oral mucosa moist. NECK: No JVD, no neck masses. HEART: S1 and S2 heard. Regular rate and rhythm. No murmur, no gallop. RESPIRATORY SYSTEM: Normal AP diameter. No accessory muscle use. no wheezing, no crackles. ABDOMEN: Soft, bowel sounds present, RUQ tender, no distention. CENTRAL NERVOUS SYSTEM: No facial droop. Speech is clear. Obeys simple commands. Moves extremities. EXTREMITIES: No edema, no erythema seen. Results & Data Results & Data ([facility]) Vital Signs (Past 12 Hours) Vital Signs Temp Pulse Pulse Resp BP Pulse Ox O2 Del Method 06/09/22 11:56 36.5 C 106 H 20 155/84 H 97 Nasal Cannula 06/09/22 10:00 74 06/09/22 10:00 Nasal Cannula 06/09/22 11:07 83 18 Nasal Cannula, Ambu-Bag 06/09/22 09:06 36.6 C 84 18 147/98 H 97 Nasal Cannula 06/09/22 07:48 98 H 18 96 Nasal Cannula 06/09/22 02:53 36.7 C 88 18 144/82 H 96 Nasal Cannula O2 Flow Rate FiO2 06/09/22 11:56 2 06/09/22 10:00 06/09/22 10:00 2 06/09/22 11:07 96 06/09/22 09:06 2 06/09/22 07:48 2 06/09/22 02:53 2
[2022-06-09] MEDS: ENOXAPARIN INJ 40 MG/0.4 ML SYR SQ SCH (14:53)
[2022-06-09] MEDS: MELATONIN 3 MG TAB PO PRN (21:44)
[2022-06-09] MEDS: METOPROLOL TARTRATE 25 MG TAB PO SCH (21:44)
[2022-06-09] MEDS: ACETAMINOPHEN 325 MG TAB PO PRN (21:44)
[2022-06-10] MEDS: DICLOFENAC SOD 1% GEL 100 GM TUBE EXT SCH ×4 (04:06→21:49)
[2022-06-10] MEDS: ALBUT/IPRATROP 3MG/0.5MG NEB 3 ML VIAL NEB SCH ×4 (07:04→20:00)
[2022-06-10 07:53] LABS: Creatinine Clr Calc Pharmacy 110.2 ml/min; Est GFR (African American) 120.8 ml/min; Est GFR (Non-African American) 104.3 ml/min
[2022-06-10] MEDS: FAMOTIDINE 20 MG TAB PO SCH ×2 (08:50→21:49)
[2022-06-10] MEDS: DOXYCYCLINE HYCLATE 100 MG CAP PO SCH ×2 (08:50→21:48)
[2022-06-10] MEDS: METOPROLOL TARTRATE 25 MG TAB PO SCH ×2 (08:51→21:49)
[2022-06-10] MEDS: guaiFENesin 600 MG TABCR PO SCH ×2 (08:51→21:48)
[2022-06-10] MEDS: dexAMETHasone 4 MG TAB PO SCH (08:52)
[2022-06-10] MEDS: ROSUVASTATIN CALCIUM 20 MG TAB PO SCH (08:52)
[2022-06-10] MEDS: ASPIRIN 81 MG ECTAB PO SCH (08:52)
[2022-06-10] MEDS: FLUTICASONE FUROATE 100MCG 14 PUFFS/INHALER INH SCH (08:55)
[2022-06-10] MEDS: UMECLIDINIUM/VILANTEROL 62.5/25MCG 7 PUFFS/INHALER INH SCH (08:55)
[2022-06-10] MEDS: REMDESIVIR 100 MG in SODIUM CHLORIDE 0.9% 230 ML IV SCH (12:07)
--- NOTE | 2022-06-10 14:00 | Hospitalist Progress Note ---
Date of Service June 10, 2022 Assessment & Plan (1) COVID-19: (2) COPD exacerbation: Plan: COVID-19 infection Acute COPD exacerbation secondary to above H/O COVID-19 infection 05/2021 with subsequent negative tests 01/23/2022 and 02/23/2022. Vaccinated x 4 with last booster dose 11/2021. Acute on chronic respiratory failure with hypoxia--on 2 L of oxygen at baseline, transiently required upto 4L this admission. 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 Serology for influenza, RSV negative CRP 11.08 Procalcitonin <0.05 -- Started on remdesivir 06/06 - s/p course. Continue steroids, nebs - to po decadron 06/09. Famotidine for duration of steroid. Continue supplemental oxygen to keep saturations 88 to 92% Empirically on doxycycline Continue pulmonary hygiene Antitussives as needed Diarrhea: likely viral, resolved. (3) Hyperlipemia: Plan: Continue statin HTN: BP chronically appears normal to higher side, will use small dose metoprolol and uptitrate or add other meds as appropriate. DVT Px: SQ Lovenox CODE STATUS: Full code DISPO: PT/OT to eval and CM to assist w/ DC plan. Medically stable. Admission and Anticipated Discharge Date Admission Date: June 05, 2022 Subjective Patient seen and examined at bedside as a follow-up COVID-19 infection and COPD exacerbation. Patient was lying in bed, on 2 L oxygen via nasal cannula, NAD, reports no new acute event overnight, reports eating ok and moving bowels ok, reports feeling little bit more better everyday, has been moving to and fro from restroom. Reports cough about the same w/ clear to yellow sputum, denies headache or dizziness or chest pain or other ROS. Physical Exam Physical Exam: GENERAL: Alert and oriented x3. NAD, on 2L NC O2 HEENT: No pallor, no icterus. Pupils equal, round and reactive to light. Oral mucosa moist. NECK: No JVD, no neck masses. HEART: S1 and S2 heard. Regular rate and rhythm. No murmur, no gallop. RESPIRATORY SYSTEM: Normal AP diameter. No accessory muscle use. no wheezing, no crackles. ABDOMEN: Soft, bowel sounds present, RUQ tender, no distention. CENTRAL NERVOUS SYSTEM: No facial droop. Speech is clear. Obeys simple commands. Moves extremities. EXTREMITIES: No edema, no erythema seen. Results & Data Results & Data ([facility]) Vital Signs (Past 12 Hours) Vital Signs Temp Pulse Pulse Resp BP BP Pulse Ox 06/10/22 11:00 36.5 C 81 16 123/79 98 06/10/22 11:09 81 18 98 06/10/22 09:11 06/10/22 07:33 71 06/10/22 07:06 82 18 98 06/10/22 06:41 36.6 C 81 18 157/94 H 98 06/10/22 04:00 36.6 C 72 18 158/92 H 98 O2 Del Method O2 Flow Rate 06/10/22 11:00 Nasal Cannula 2 06/10/22 11:09 Nasal Cannula 2 06/10/22 09:11 Nasal Cannula 2 06/10/22 07:33 06/10/22 07:06 Nasal Cannula 2 06/10/22 06:41 Nasal Cannula 2 06/10/22 04:00 Nasal Cannula 2
[2022-06-10] MEDS: ENOXAPARIN INJ 40 MG/0.4 ML SYR SQ SCH (15:13)
[2022-06-11 03:11] VITALS: TEMP 98.1
[2022-06-11] MEDS: DICLOFENAC SOD 1% GEL 100 GM TUBE EXT SCH ×2 (04:01→08:11)
[2022-06-11] MEDS: ALBUT/IPRATROP 3MG/0.5MG NEB 3 ML VIAL NEB SCH ×2 (07:16→11:00)
[2022-06-11] MEDS: FLUTICASONE FUROATE 100MCG 14 PUFFS/INHALER INH SCH (08:11)
[2022-06-11] MEDS: UMECLIDINIUM/VILANTEROL 62.5/25MCG 7 PUFFS/INHALER INH SCH (08:11)
[2022-06-11] MEDS: dexAMETHasone 4 MG TAB PO SCH (08:12)
[2022-06-11] MEDS: ASPIRIN 81 MG ECTAB PO SCH (08:12)
[2022-06-11] MEDS: ROSUVASTATIN CALCIUM 20 MG TAB PO SCH (08:13)
[2022-06-11] MEDS: guaiFENesin 600 MG TABCR PO SCH (08:13)
[2022-06-11] MEDS: DOXYCYCLINE HYCLATE 100 MG CAP PO SCH (08:14)
[2022-06-11] MEDS: METOPROLOL TARTRATE 25 MG TAB PO SCH (08:14)
[2022-06-11] MEDS: FAMOTIDINE 20 MG TAB PO SCH (08:14)
[2022-06-11 09:33] LABS: Creatinine Clr Calc Pharmacy 113.7 ml/min; Est GFR (African American) 122.4 ml/min; Est GFR (Non-African American) 105.6 ml/min
[2022-06-11 12:09] VITALS: O2SAT 97
--- NOTE | 2022-06-11 13:01 | Discharge Summary ---
Date of Service June 11, 2022 Admission HPI Per Admitting Provider 62-year-old male with PMH COPD on chronic 2 L of oxygen, pulmonary nodules, dyslipidemia, and other problems listed below who presents to the ED for evaluation of shortness of breath and palpitations. Patient reports increasing shortness of breath over the past 2 days. Patient reports that shortness of breath at rest and with minimal exertion. He reports a nonproductive cough. Overnight, patient woke up noting he had heart palpitations. He then presented to the ER around 8 AM this morning. Patient denies chest pain. He reports lightheadedness and dizziness however no syncopal event. He has had a poor appe tite but denies abdominal pain, nausea, vomiting, diarrhea. No fevers or chills. Denies urinary symptoms. In the ED, patient tested positive for COVID- 19. He is tachycardic that improved after IVF. He is saturating well on his chronic 2 L of oxygen. Patient also received IV Tylenol, nebulizer treatment, guaifenesin, IV Solu-Medrol. Admission Exam Per Admitting Provider Constitutional: WD/WN, vitals as above no acute distress Eyes: PERRL, conjunctivae normal, anicteric sclerae ENMT: external ear and nose normal, oropharynx normal Respiratory: normal respiratory effort; no respiratory distress Auscultation: + diminished lung sounds Cardiovascular: Rate/Rhythm: regular rhythm and + tachycardic Vessels: normal peripheral pulses Extremities: no edema Gastrointestinal (Abdomen): normal bowel sounds, soft, nontender, no hepatosplenomegaly Musculoskeletal: no cyanosis or clubbing, extremities motor strength 5/5 Skin: no rashes, warm and dry Neurologic: PERRL, EOMI, accommodation nl, no face palsy, no dysarthria Psychiatric: A+Ox3, euthymic affect Principal Diagnosis COVID-19 infection Acute exacerbation of COPD Discharge Exam GENERAL: Alert and oriented x3. NAD, on 2L NC O2 HEENT: No pallor, no icterus. Pupils equal, round and reactive to light. Oral mucosa moist. NECK: No JVD, no neck masses. HEART: S1 and S2 heard. Regular rate and rhythm. No murmur, no gallop. RESPIRATORY SYSTEM: Normal AP diameter. No accessory muscle use. no wheezing, no crackles. ABDOMEN: Soft, bowel sounds present, RUQ tender, no distention. CENTRAL NERVOUS SYSTEM: No facial droop. Speech is clear. Obeys simple commands. Moves extremities. EXTREMITIES: No edema, no erythema seen. Discharge Data Allergies Allergy/AdvReac Type Severity Reaction Status Date / Time No Known Allergies Allergy Verified 02/09/22 02:49 Consultations 06/05/22 13:19 ED Decision to Admit Stat Ordered Studies 06/09/22 07:22 US liver Routine Hospital Course (1) COVID-19: (2) COPD exacerbation: COVID-19 infection Acute COPD exacerbation secondary to above H/O COVID-19 infection 05/2021 with subsequent negative tests 01/23/2022 and 02/23/2022. Vaccinated x 4 with last booster dose 11/2021. Acute on chronic respiratory failure with hypoxia--on 2 L of oxygen at baseline, transiently required upto 4L this admission. Symptom onset 3 days ago [employer] as per patient Chest x-ray:No acute process. Serology for influenza, RSV negative CRP 11.08 Procalcitonin <0.05 -- Started on remdesivir 06/06 - s/p course. Continue steroids, nebs - to po decadron 06/09. Famotidine for duration of steroid. few days worth of both on dc. Continue supplemental oxygen to keep saturations 88 to 92% Empirically on doxycycline, to complete course on dc. Continue pulmonary hygiene Antitussives as needed Diarrhea: likely viral, resolved. (3) Hyperlipemia: Continue statin HTN: BP chronically appears normal to higher side, will use small dose metoprolol and uptitrate or add other meds as appropriate. DVT Px: SQ Lovenox CODE STATUS: Full code DISPO: PT/OT to eval and CM to assist w/ DC plan. Medically stable. Plan Patient appears still weak while climbing stairs per PT/OT evaluation, patient declines rehab or home health or outpatient physical therapy. Otherwise he reports being at his baseline. Patient wants to go home. Patient being discharged with following instruction at the point of discharge: Follow-up with your primary care physician within a week time and likely you will need labs CBC/CMP/magnesium/phosphorus. You will be discharged on metoprolol 25 mg in the morning and 12.5 in the evening as a part of your blood pressure management and chronically elevated heart rate. Follow-up with your cardiology as an outpatient in a month time. You will be discharged with few days worth of Decadron, continue to use your flutter valve and incentive spirometer for next 1 to 2 weeks as able. Also you will be discharged on famotidine for the same duration as of Decadron. Continue healthy diet, increase protein intake, ongoing physical therapy. For your low back pain, you can use [id number] Tylenol or Voltaren gel as needed. Take your medications as prescribed. Please make sure that you are able to get your medications today by calling your pharmacy before you leave the hospital so that your treatment continuity is not broken. Home Health Attestation I certify that this patient is under my care and that I, or a physicians parking assistant working with me, had a face to-face encounter that meets the home health [id number] encounter requirements with this patient. The encounter with the patient was in whole, or in part, for the following medical condition, which is the primary reason for home health care (list medical condition): I certify that, based on my findings, the following services are medically necessary home health services: My clinical findings support the need for the above services because: Further, I certify that my clinical findings support that this patient is homebound (i.e. absences from home require considerable and taxing effort and are for medical reasons or hoahaoism services or infrequently or of short duration when for other reasons) because: Certification for Home Health Services: Based on the above findings, I certify that this patient is confined to the home and needs intermittent usp care, physical therapy and/or speech therapy or continues to need occupational therapy. The patient is under my care, and I have initiated the establishment of the plan of care. This patient will be followed by a physician who will periodically review the plan of care. Total Time Total Time Spent Total Time Spent (In Minutes): 45 Discharge Plan Discharge Items Patient Disposition: Home - Self-Care Reason For Visit: COVID, COPD Discharge Diagnosis: COVID-19 infection Acute exacerbation of COPD Activity: Resume your previous activity Non-emergency contact: Primary Care Provider Call non-emergency contact if: you have any medication questions, your symptoms worsen and your temperature is above 101 Follow-up/Referrals: Edelmira Cavanaugh MD [Primary Care Provider] - (Date & Time 06/16/2022 10:20 AM Provider Elinor Rdz MD Department General Internal Medicine [facility] ) Diet: Regular Addtl Attending Provider Instructions: Follow-up with your primary care physician within a week time and likely you will need labs CBC/CMP/magnesium/phosphorus. You will be discharged on metoprolol 25 mg in the morning and 12.5 in the evening as a part of your blood pressure management and chronically elevated heart rate. Follow-up with your cardiology as an outpatient in a month time. You will be discharged with few days worth of Decadron, continue to use your flutter valve and incentive spirometer for next 1 to 2 weeks as able. Also you will be discharged on famotidine for the same duration as of Decadron. Continue healthy diet, increase protein intake, ongoing physical therapy. For your low back pain, you can use [id number] Tylenol or Voltaren gel as needed. Take your medications as prescribed. Please make sure that you are able to get your medications today by calling your pharmacy before you leave the hospital so that your treatment continuity is not broken. Pending Studies at Discharge: No Stand-Alone Forms: My [facility], Smoking Cessation Medications and DC Order Prescriptions: New doxycycline hyclate 100 mg Capsule 100 mg PO BID 3 Days Qty: 6 0RF metoprolol succinate 25 mg tablet extended release 24 hr 25 mg PO DAILY Qty: 30 0RF metoprolol succinate 25 mg tablet extended release 24 hr 12.5 mg PO HS Qty: 15 0RF famotidine 20 mg Tablet 20 mg PO BID 3 Days Qty: 6 0RF dexamethasone 4 mg Tablet 6 mg PO DAILY 3 Days Qty: 5 0RF benzonatate 100 mg Capsule 100 mg PO TID 5 Days Qty: 15 0RF guaifenesin [Mucinex] 600 mg Tablet Extended Release 12hr 600 mg PO Q12 5 Days Qty: 10 0RF Continued aspirin 81 mg Tablet,Delayed Release (Dr/Ec) 81 mg PO QAM albuterol sulfate [Ventolin HFA] 90 mcg/actuation Hfa Aerosol Inhaler 2 puff INHALATION QID PRN (Reason: Shortness Of Breath Or Wheezing) rosuvastatin [Crestor] 20 mg Tablet 20 mg PO QAM Centrum 18-400 mg-mcg Tablet 1 tab PO QAM Trelegy Ellipta 100-62.5-25 mcg Blister With Device 1 inh INHALATION HS albuterol sulfate 2.5 mg /3 mL (0.083 %) Solution For Nebulization 2.5 mg INHALATION Q4 PRN (Reason: Shortness Of Breath) Qty: 50 0RF Discharge Orders: Discharge Order (Routine); Ordered 06/11/22 Ordered By: Angelica Redd Admission Data Admit Date/Time: 06/05/22 13:26 Attending Provider: Angelica Redd Admit Provider: Polo Collier Primary Care Provider: Edelmira Cavanaugh Other Providers: Polo Collier
[2022-06-11 13:02] VITALS: BP 157/94; PULSE 94
== END 2022-06-11 15:15 | disposition home or self-care (01) | DRG 177 ==
LOC: ED 10:36 → SUATTDRO 13:26 → EDINP 13:26 → 2N 14:52

== ENCOUNTER 2023-01-02 13:53 | Inpatient (IN) ==
--- NOTE | 2023-01-02 15:02 | XRay Report ---
XR chest 1V not portable CLINICAL HISTORY: SOB TECHNIQUE: Single frontal radiograph of the chest was obtained. Comparison: Comparison is made to chest CT 06/05/2022 FINDINGS: No lines and tubes are seen. Calcified aortic knob is seen. The lungs are clear. Lucency in the left hemithorax is nonspecific, may reflect worsening of paraseptal emphysema. Hiatal hernia is considered less likely. IMPRESSION: Lucency is seen in the left hemithorax, nonspecific. Lateral radiograph is recommended. ACT 112: Negative or not required by law. Electronically signed by: Duane Morrison M.D. 01/02/2023 3:00 PM
[2023-01-02 15:29] LABS: Basophils # (auto) 0.07 K/uL (0.00-0.20); Basophils % (auto) 0.5 %; Eosinophils # (auto) 0.63 K/uL (0.00-0.50); Eosinophils % (auto) 4.6 %; Hematocrit (blood only) 42.8 % (42.0-52.0); Hemoglobin 14.2 g/dl (14.0-18.0); Immature Granulocytes # (auto) 0.09 K/uL (0.01-0.20); Immature Granulocytes % (auto) 0.7 %; Lymphocytes # (auto) 1.89 K/uL (1.20-3.40); Lymphocytes % (auto) 13.8 %; Mean Corpuscular Hgb Conc 33.2 g/dL (32.0-36.0); Mean Corpuscular Volume 90.5 fL (80.0-100.0); Monocytes # (auto) 1.62 K/uL (0.11-0.59); Monocytes % (auto) 11.8 %; Neutrophils # (auto) 9.42 K/uL (1.40-6.50); Neutrophils % (auto) 68.6 %; Platelet Count 312 K/uL (130-400); RDW Coefficient of Variation 13.9 % (11.5-14.5); RDW Standard Deviation 46.2 fL (36.4-46.3); Red Blood Count 4.73 M/uL (4.70-6.10); White Blood Count 13.72 K/ul (4.8-10.8)
[2023-01-02 15:48] LABS: Alanine Aminotransferase 12 U/L (7-52); Albumin Globulin Ratio 1.2 (0.9-2); Albumin Level 4.3 gm/dl (3.4-5.0); Alkaline Phosphatase 90 U/L (34-104); Anion Gap 7 (3-11); Aspartate Aminotransferase 8 U/L (13-39); BUN Creatinine Ratio 15.7 (10-20); Bilirubin,Total 0.8 mg/dl (0.2-1.0); Blood Urea Nitrogen 13 mg/dl (6-23); Calcium 9.8 mg/dl (8.6-10.3); Carbon Dioxide 32 mmol/L (21-32); Chloride 97 mmol/L (98-107); Est GFR (African American) 109.3 ml/min; Est GFR (Non-African American) 94.3 ml/min; Globulin 3.5 gm/dl (2.5-4.0); Glucose 102 mg/dl (70-99(Fasting)); Potassium 4.1 mmol/L (3.5-5.1); Sodium 136 mmol/L (136-145); Total Protein 7.8 gm/dl (6.0-8.3)
[2023-01-02] MEDS ORDERED: ALBUT/IPRATROP 3MG/0.5MG NEB 3 ML VIAL NEB STA (16:46)
[2023-01-02] MEDS ORDERED: methylPREDNISolone 125 MG/2 ML VIAL IV STA (16:46)
--- NOTE | 2023-01-02 16:46 | Emergency Department Note ---
Impression & Plan COPD (chronic obstructive pulmonary disease) ED Provider Note NAME: JENNIE BRIONES AGE: 62 SEX: M : 1960 ARRIVES VIA: Walk-In INFORMANT: Patient, ED PROVIDER(S): Kendra Swann MD CHIEF COMPLAINT: Shortness of breath HPI: This is a 60-year-old male with history of COPD on 2 L nasal cannula, hy perlipidemia presenting for shortness of breath. Patient states that for the past 11 days he has noticed increasing dyspnea. He follow-up with the primary care physician who gave him steroids as well as albuterol treatments. He states he is not helping and now she he feels worse than before. He notes no chest pain, fever, chills, nausea, vomiting, cough, or diarrhea. He does note that he feels like some have a heart trouble breathing has to use pursed lip breathing which is unusual for him. ROS: See above HPI for pertinent positives & negatives. A total of 10 systems reviewed and were otherwise negative. PAST MEDICAL HISTORY: See Below PAST SURGICAL HISTORY: See Below FAMILY HISTORY: See Below SOCIAL HISTORY: See Below HOME MEDICATIONS: See Below ALLERGIES: See Below VITALS: See Below PHYSICAL EXAMINATION: General: resting comfortably in no acute distress Head: Normocephalic and atraumatic Eyes: Normal inspection, extraocular muscles intact, no conjunctival pallor Ear, nose, throat: Normal external exam Neck: Normal range of motion Respiratory: Diminished lung sounds in all lung lam mild respiratory distress, Cardiovascular: RRR without murmur appreciated GI: soft, nontender, no guarding or rebound Extremities: pulses intact with good cap refills, no LE pitting edema or calf tenderness Neuro: The patient awake and alert, appropriately conversive,no focal decifits Skin: Warm, dry, and intact MEDICAL DECISION MAKING: This is a 62-year-old male with history of COPD on 2 L nasal cannula presenting for shortness of breath. Patient has poor air movement lungs bilaterally. Consider COPD chest or Bashan at this time. Will give albuterol, methylprednisolone and evaluate for improvement. Patient's lab work does reveal leukocytosis 13, could be related to demargination from prednisone use. Otherwise patient's VBG does reveal slight hypercarbia with CO2 of 62. Other lab work is reassuring. Negative for viral panel. Chest x-ray appears stable. Will have patient on BiPAP for hypercarbia and work of breathing at this time. Will admit for likely COPD observation. Triage Nursing notes reviewed. Prior medical records reviewed Vital Signs: reviewed and remarkable for no significant abnormalities Differential diagnosis: COPD, ACS, pneumonia, PE, ACS ER treatment provided: See below Diagnostics interpreted by me: ECG: ECG reviewed by me with sinus tachycardia at a rate of 104,, normal axis, normal ME, normal QRS, normal QTc, no ST segment elevations consistent with STEMI criteria Cardiac Monitoring: An order was placed for continuous cardiac monitoring. The monitor shows a rate of 105 with sinus rhythm. Laboratory studies: As stated above and show below. Imaging studies: See below. Radiographic imaging was reviewed by myself Consultation(s): None Past Med/Surg History Medical History Colon adenoma COPD (chronic obstructive pulmonary disease) inhaler/nebulizer/oxygen Hyperlipidemia On home oxygen therapy 2L N/C hs and prn Surgical History H/O rotator cuff surgery History of arthroscopy of right shoulder History of bronchoscopy History of colonoscopy with polypectomy History of mandibular surgery History of tooth extraction all teeth Family History Mother Lung cancer Other No family history of adverse response to anesthesia Social History Smoking Status: Former smoker Tobacco Type: Cigarettes Cigarettes Per Day: 40; Second Hand Exposure: Yes (parents smoked/ smokes); Do You Dip or Chew Tobacco: No; Hx Alcohol Use: No Hx Substance Use: No Preferred Language: Thai Communication Ability: Effective Right Of Way Manager Required: No Beliefs That Will Affect Care: None marital status: Current Living Situation: Spouse current occupational status: unemployed and disabled Feels Safe at Home: Yes Safety Concerns: Feels Safe At This Time Assistive Devices: Oxygen - Continuous Allergies Allergies Allergy/AdvReac Type Severity Reaction Status Date / Time No Known Allergies Allergy Verified 02/09/22 02:49 Home Meds Home Medications Medication Instructions Recorded Confirmed albuterol sulfate 90 mcg/actuation 2 puff inhalation QID PRN 06/15/18 06/05/22 aerosol inhaler (Ventolin HFA) Shortness Of Breath Or Wheezing aspirin 81 mg tablet,delayed 81 mg PO QAM 06/15/18 06/05/22 release multivitamin-ferrous 1 tab PO QAM 06/15/18 06/05/22 fumarate-folic acid 18 mg-400 mcg tablet (Centrum) rosuvastatin 20 mg tablet (Crestor) 20 mg PO QAM 06/15/18 06/05/22 fluticasone fur. 100 mcg-umeclid 1 inh inhalation HS 04/26/19 06/05/22 62.5 mcg-vilant 25 mcg inhalat.powder (Trelegy Ellipta) Previous Rx's Medication Instructions Recorded albuterol sulfate 2.5 mg/3 mL 2.5 mg (3 mL) inhalation Q4 PRN 02/15/22 (0.083 %) solution for nebulization Shortness Of Breath #50 mL metoprolol succinate 25 mg 12.5 mg PO HS #15 tabs 06/11/22 tablet,extended release 24 hr metoprolol succinate 25 mg 25 mg PO DAILY #30 tabs 06/11/22 tablet,extended release 24 hr Results & Data (ED) Vital Signs Vital Signs - 24 hr 01/02/23 14:03 01/02/23 13:55 01/02/23 16:05 Temperature 36.7 C Temperature Source Temporal Artery Scan Pulse Rate 121 H Pulse Rate [Apical] 100 H Pulse Rate from SpO2 Sensor Pulse Rhythm [Apical] Regular Pulse Strength [Apical] Normal Respiratory Rate 19 20 Respiratory Effort / Characteristics Non-Labored Spontaneous Respiratory Depth Normal Respiratory Pattern Regular Blood Pressure 121/77 Blood Pressure [Left Arm] 144/112 H Blood Pressure Mean 91 Blood Pressure Mean [Left Arm] 122 Blood Pressure Position [Left Arm] Sitting Pulse Oximetry 95 94 97 Oxygen Delivery Method Room Air Nasal Cannula Nasal Cannula Oxygen Flow Rate 2 2 Fraction of Inspired Oxygen Sepsis Recent Fever Within 48 Hours Yes Sepsis New/Unexplained Change in Mental Status N/A Sepsis Action Taken by Nursing No Action Required 01/02/23 16:51 01/02/23 17:46 01/02/23 19:20 Temperature Temperature Source Pulse Rate 103 H 107 H Pulse Rate [Apical] 96 H Pulse Rate from SpO2 Sensor Pulse Rhythm [Apical] Regular Pulse Strength [Apical] Normal Respiratory Rate 22 19 Respiratory Effort / Characteristics Non-Labored Spontaneous Non-Labored Spontaneous Respiratory Depth Normal Normal Respiratory Pattern Regular Regular Blood Pressure Blood Pressure [Left Arm] 129/91 Blood Pressure Mean Blood Pressure Mean [Left Arm] 103 Blood Pressure Position [Left Arm] Sitting Pulse Oximetry 98 99 Oxygen Delivery Method Nasal Cannula Oxygen Flow Rate 2 Fraction of Inspired Oxygen 40 Sepsis Recent Fever Within 48 Hours Sepsis New/Unexplained Change in Mental Status Sepsis Action Taken by Nursing 01/02/23 19:22 01/02/23 20:00 01/02/23 20:27 Temperature Temperature Source Pulse Rate 99 H Pulse Rate [Apical] 108 H 105 H Pulse Rate from SpO2 Sensor Pulse Rhythm [Apical] Regular Pulse Strength [Apical] Normal Respiratory Rate 19 20 Respiratory Effort / Characteristics Non-Labored Spontaneous Non-Labored Spontaneous Respiratory Depth Normal Respiratory Pattern Regular Blood Pressure Blood Pressure [Left Arm] 117/90 Blood Pressure Mean Blood Pressure Mean [Left Arm] 99 Blood Pressure Position [Left Arm] Pulse Oximetry 99 97 Oxygen Delivery Method BiPAP BiPAP Oxygen Flow Rate Fraction of Inspired Oxygen 35 Sepsis Recent Fever Within 48 Hours Sepsis New/Unexplained Change in Mental Status Sepsis Action Taken by Nursing 01/02/23 16:25 01/02/23 16:30 01/02/23 16:30 Temperature Temperature Source Pulse Rate 105 H 103 H Pulse Rate [Apical] Pulse Rate from SpO2 Sensor 104 H 105 H Pulse Rhythm [Apical] Pulse Strength [Apical] Respiratory Rate 22 23 Respiratory Effort / Characteristics Respiratory Depth Respiratory Pattern Blood Pressure 144/108 H Blood Pressure [Left Arm] Blood Pressure Mean 130 Blood Pressure Mean [Left Arm] Blood Pressure Position [Left Arm] Pulse Oximetry 100 100 Oxygen Delivery Method Oxygen Flow Rate Fraction of Inspired Oxygen Sepsis Recent Fever Within 48 Hours Sepsis New/Unexplained Change in Mental Status Sepsis Action Taken by Nursing 01/02/23 16:40 01/02/23 16:50 01/02/23 17:00 Temperature Temperature Source Pulse Rate 98 H 104 H Pulse Rate [Apical] Pulse Rate from SpO2 Sensor 97 H 102 H Pulse Rhythm [Apical] Pulse Strength [Apical] Respiratory Rate 25 H 30 H Respiratory Effort / Characteristics Respiratory Depth Respiratory Pattern Blood Pressure 137/96 Blood Pressure [Left Arm] Blood Pressure Mean 114 Blood Pressure Mean [Left Arm] Blood Pressure Position [Left Arm] Pulse Oximetry 100 100 Oxygen Delivery Method Oxygen Flow Rate Fraction of Inspired Oxygen Sepsis Recent Fever Within 48 Hours Sepsis New/Unexplained Change in Mental Status Sepsis Action Taken by Nursing 01/02/23 17:00 01/02/23 17:10 01/02/23 17:20 Temperature Temperature Source Pulse Rate 97 H 95 H 96 H Pulse Rate [Apical] Pulse Rate from SpO2 Sensor 96 H 94 H 97 H Pulse Rhythm [Apical] Pulse Strength [Apical] Respiratory Rate 26 H 22 26 H Respiratory Effort / Characteristics Respiratory Depth Respiratory Pattern Blood Pressure Blood Pressure [Left Arm] Blood Pressure Mean Blood Pressure Mean [Left Arm] Blood Pressure Position [Left Arm] Pulse Oximetry 100 100 99 Oxygen Delivery Method Oxygen Flow Rate Fraction of Inspired Oxygen Sepsis Recent Fever Within 48 Hours Sepsis New/Unexplained Change in Mental Status Sepsis Action Taken by Nursing 01/02/23 17:30 01/02/23 17:30 01/02/23 17:40 Temperature Temperature Source Pulse Rate 93 H 90 Pulse Rate [Apical] Pulse Rate from SpO2 Sensor 96 H 91 H Pulse Rhythm [Apical] Pulse Strength [Apical] Respiratory Rate 22 20 Respiratory Effort / Characteristics Respiratory Depth Respiratory Pattern Blood Pressure 143/101 H Blood Pressure [Left Arm] Blood Pressure Mean 124 Blood Pressure Mean [Left Arm] Blood Pressure Position [Left Arm] Pulse Oximetry 100 100 Oxygen Delivery Method Oxygen Flow Rate Fraction of Inspired Oxygen Sepsis Recent Fever Within 48 Hours Sepsis New/Unexplained Change in Mental Status Sepsis Action Taken by Nursing 01/02/23 17:47 01/02/23 17:47 01/02/23 17:50 Temperature Temperature Source Pulse Rate 102 H 95 H Pulse Rate [Apical] Pulse Rate from SpO2 Sensor 100 H 99 H Pulse Rhythm [Apical] Pulse Strength [Apical] Respiratory Rate 20 15 Respiratory Effort / Characteristics Respiratory Depth Respiratory Pattern Blood Pressure 129/91 Blood Pressure [Left Arm] Blood Pressure Mean 109 Blood Pressure Mean [Left Arm] Blood Pressure Position [Left Arm] Pulse Oximetry 100 100 Oxygen Delivery Method Oxygen Flow Rate Fraction of Inspired Oxygen Sepsis Recent Fever Within 48 Hours Sepsis New/Unexplained Change in Mental Status Sepsis Action Taken by Nursing 01/02/23 18:00 01/02/23 18:00 01/02/23 18:10 Temperature Temperature Source Pulse Rate 98 H 105 H Pulse Rate [Apical] Pulse Rate from SpO2 Sensor 99 H 102 H Pulse Rhythm [Apical] Pulse Strength [Apical] Respiratory Rate 20 26 H Respiratory Effort / Characteristics Respiratory Depth Respiratory Pattern Blood Pressure 125/92 Blood Pressure [Left Arm] Blood Pressure Mean 108 Blood Pressure Mean [Left Arm] Blood Pressure Position [Left Arm] Pulse Oximetry 97 99 Oxygen Delivery Method Oxygen Flow Rate Fraction of Inspired Oxygen Sepsis Recent Fever Within 48 Hours Sepsis New/Unexplained Change in Mental Status Sepsis Action Taken by Nursing 01/02/23 18:20 01/02/23 18:45 01/02/23 18:50 Temperature Temperature Source Pulse Rate 97 H 106 H 108 H Pulse Rate [Apical] Pulse Rate from SpO2 Sensor 100 H 102 H 110 H Pulse Rhythm [Apical] Pulse Strength [Apical] Respiratory Rate 25 H 25 H 27 H Respiratory Effort / Characteristics Respiratory Depth Respiratory Pattern Blood Pressure Blood Pressure [Left Arm] Blood Pressure Mean Blood Pressure Mean [Left Arm] Blood Pressure Position [Left Arm] Pulse Oximetry 98 96 96 Oxygen Delivery Method Oxygen Flow Rate Fraction of Inspired Oxygen Sepsis Recent Fever Within 48 Hours Sepsis New/Unexplained Change in Mental Status Sepsis Action Taken by Nursing 01/02/23 19:00 01/02/23 19:00 01/02/23 19:10 Temperature Temperature Source Pulse Rate 105 H 105 H Pulse Rate [Apical] Pulse Rate from SpO2 Sensor 105 H 102 H Pulse Rhythm [Apical] Pulse Strength [Apical] Respiratory Rate 21 22 Respiratory Effort / Characteristics Respiratory Depth Respiratory Pattern Blood Pressure 123/86 Blood Pressure [Left Arm] Blood Pressure Mean 109 Blood Pressure Mean [Left Arm] Blood Pressure Position [Left Arm] Pulse Oximetry 97 97 Oxygen Delivery Method Oxygen Flow Rate Fraction of Inspired Oxygen Sepsis Recent Fever Within 48 Hours Sepsis New/Unexplained Change in Mental Status Sepsis Action Taken by Nursing 01/02/23 19:20 01/02/23 19:29 01/02/23 19:29 Temperature Temperature Source Pulse Rate 111 H 101 H Pulse Rate [Apical] Pulse Rate from SpO2 Sensor 110 H 101 H Pulse Rhythm [Apical] Pulse Strength [Apical] Respiratory Rate 17 22 Respiratory Effort / Characteristics Respiratory Depth Respiratory Pattern Blood Pressure 114/83 Blood Pressure [Left Arm] Blood Pressure Mean 96 Blood Pressure Mean [Left Arm] Blood Pressure Position [Left Arm] Pulse Oximetry 99 99 Oxygen Delivery Method Oxygen Flow Rate Fraction of Inspired Oxygen Sepsis Recent Fever Within 48 Hours Sepsis New/Unexplained Change in Mental Status Sepsis Action Taken by Nursing 01/02/23 19:30 01/02/23 19:30 01/02/23 19:40 Temperature Temperature Source Pulse Rate 99 H 104 H Pulse Rate [Apical] Pulse Rate from SpO2 Sensor 99 H 104 H Pulse Rhythm [Apical] Pulse Strength [Apical] Respiratory Rate 19 19 Respiratory Effort / Characteristics Respiratory Depth Respiratory Pattern Blood Pressure 118/92 Blood Pressure [Left Arm] Blood Pressure Mean 100 Blood Pressure Mean [Left Arm] Blood Pressure Position [Left Arm] Pulse Oximetry 99 98 Oxygen Delivery Method Oxygen Flow Rate Fraction of Inspired Oxygen Sepsis Recent Fever Within 48 Hours Sepsis New/Unexplained Change in Mental Status Sepsis Action Taken by Nursing 01/02/23 19:50 01/02/23 20:00 01/02/23 20:00 Temperature Temperature Source Pulse Rate 96 H 101 H Pulse Rate [Apical] Pulse Rate from SpO2 Sensor 98 H 101 H Pulse Rhythm [Apical] Pulse Strength [Apical] Respiratory Rate 16 18 Respiratory Effort / Characteristics Respiratory Depth Respiratory Pattern Blood Pressure 117/90 Blood Pressure [Left Arm] Blood Pressure Mean 99 Blood Pressure Mean [Left Arm] Blood Pressure Position [Left Arm] Pulse Oximetry 97 97 Oxygen Delivery Method Oxygen Flow Rate Fraction of Inspired Oxygen Sepsis Recent Fever Within 48 Hours Sepsis New/Unexplained Change in Mental Status Sepsis Action Taken by Nursing 01/02/23 20:10 01/02/23 20:20 Temperature Temperature Source Pulse Rate 107 H 102 H Pulse Rate [Apical] Pulse Rate from SpO2 Sensor 108 H 101 H Pulse Rhythm [Apical] Pulse Strength [Apical] Respiratory Rate 25 H 22 Respiratory Effort / Characteristics Respiratory Depth Respiratory Pattern Blood Pressure Blood Pressure [Left Arm] Blood Pressure Mean Blood Pressure Mean [Left Arm] Blood Pressure Position [Left Arm] Pulse Oximetry 98 98 Oxygen Delivery Method Oxygen Flow Rate Fraction of Inspired Oxygen Sepsis Recent Fever Within 48 Hours Sepsis New/Unexplained Change in Mental Status Sepsis Action Taken by Nursing Laboratory Data 01/02/23 15:06 01/02/23 15:06 Lab Results 01/02/23 01/02/23 01/02/23 Range/Units 15:06 15:06 16:47 WBC 13.72 H (4.8-10.8) K/ul RBC 4.73 (4.70-6.10) M/uL Hgb 14.2 (14.0-18.0) g/dl Hct 42.8 (42.0-52.0) % MCV 90.5 (80.0-100.0) fL MCH 30.0 (25.0-34.0) pg MCHC 33.2 (32.0-36.0) g/dL RDW Std Deviation 46.2 (36.4-46.3) fL RDW Coeff of Lashanda 13.9 (11.5-14.5) % Plt Count 312 (130-400) K/uL MPV 10.0 (9.4-12.4) fL Immature Gran % (Auto) 0.7 % Neut % (Auto) 68.6 % Lymph % (Auto) 13.8 % [place] % (Auto) 11.8 % Eos % (Auto) 4.6 % Baso % (Auto) 0.5 % Neut # (Auto) 9.42 H (1.40-6.50) K/uL Lymph # (Auto) 1.89 (1.20-3.40) K/uL [place] # (Auto) 1.62 H (0.11-0.59) K/uL Eos # (Auto) 0.63 H (0.00-0.50) K/uL Baso # (Auto) 0.07 (0.00-0.20) K/uL Immature Gran # (Auto) 0.09 (0.01-0.20) K/uL VBG pH 7.38 (7.36-7.41) VBG pCO2 62 H (38-50) mmHg VBG pO2 23 mmHg VBG HCO3 37 mmol/L VBG O2 Saturation < 60.0 % VBG Base Excess 9.2 mEq/L Sodium 136 (136-145) mmol/L Potassium 4.1 (3.5-5.1) mmol/L Chloride 97 L (98-107) mmol/L Carbon Dioxide 32 (21-32) mmol/L Anion Gap 7 (3-11) BUN 13 (6-23) mg/dl Creatinine 0.83 (0.6-1.4) mg/dl Est Cr Clr Drug Dosing Not Reportable Est GFR ( Amer) 109.3 ml/min Est GFR (Non-Af Amer) 94.3 ml/min BUN/Creatinine Ratio 15.7 (10-20) Glucose 102 H (70-99(Fasting)) mg/dl Calcium 9.8 (8.6-10.3) mg/dl Total Bilirubin 0.8 (0.2-1.0) mg/dl AST 8 L (13-39) U/L ALT 12 (7-52) U/L Alkaline Phosphatase 90 (34-104) U/L Total Protein 7.8 (6.0-8.3) gm/dl Albumin 4.3 (3.4-5.0) gm/dl Globulin 3.5 (2.5-4.0) gm/dl Albumin/Globulin Ratio 1.2 (0.9-2) Administered Medications Discontinued Medications Albuterol (Albut/Ipratrop 3mg/0.5mg Neb 3 Ml Vial) 3 ml NEB NOW STA; Protocol Stop: 01/02/23 16:47 Last Admin: 01/02/23 17:44 Dose: 3 ml Documented By: SWD Albuterol (Albuterol 0.5% Neb Soln 2.5 Mg/0.5 Ml Vial) 2.5 mg NEB NOW STA; Protocol Stop: 01/02/23 18:58 Last Admin: 01/02/23 19:20 Dose: 2.5 mg Documented By: NDC Methylprednisolone (Methylprednisolone 125 Mg/2 Ml Vial) 125 mg IV NOW STA Stop: 01/02/23 16:47 Last Admin: 01/02/23 17:44 Dose: 125 mg Documented By: KOLBY Imaging Data Radiologist's Impression: Chest X-Ray 01/02/23 14:08 XR chest 1V not portable CLINICAL HISTORY: SOB TECHNIQUE: Single frontal radiograph of the chest was obtained. Comparison: Comparison is made to chest CT 06/05/2022 FINDINGS: No lines and tubes are seen. Calcified aortic knob is seen. The lungs are clear. Lucency in the left hemithorax is nonspecific, may reflect worsening of p araseptal emphysema. Hiatal hernia is considered less likely. IMPRESSION: Lucency is seen in the left hemithorax, nonspecific. Lateral radiograph is recommended. ACT 112: Negative or not required by law. Electronically signed by: Duane Morrison M.D. 01/02/2023 3:00 PM Discharge Plan Visit Data Chief Complaint: Shortness of Breath/Dyspnea Stated Complaint: SOB ED Provider: Kendra Swann Discharge Problem: COPD (chronic obstructive pulmonary disease) Patient Disposition: Admitted As Inpatient Discharge Instructions Interventions: ED Discharge Assessment Last Done: 01/02/23 21:54
[2023-01-02 16:54] LABS: Base Excess VBG 9.2 mEq/L; HCO3 VBG 37 mmol/L; Oxygen Saturation VBG < 60.0 %; PCO2 VBG 62 mmHg (38-50); PO2 VBG 23 mmHg; pH VBG 7.38 (7.36-7.41)
[2023-01-02 17:40] LABS: Adenovirus PCR Not Detected (NotDetected); Bordetella parapertussis PCR Not Detected (NotDetected); Bordetella pertussis PCR Not Detected (NotDetected); Chlamydia pneumoniae PCR Not Detected (NotDetected); Coronavirus 229E PCR Not Detected (NotDetected); Coronavirus CoV-2 (COVID19)PCR Not Detected (NotDetected); Coronavirus HKU1 PCR Not Detected (NotDetected); Coronavirus NL63 PCR Not Detected (NotDetected); Coronavirus OC43PCR Not Detected (NotDetected); Human Metapneumovirus PCR Not Detected (NotDetected); Influenza A PCR Not Detected (NotDetected); Influenza B PCR Not Detected (NotDetected); Mycoplasma pneumoniae PCR Not Detected (NotDetected); Parainfluenza Virus 1 PCR Not Detected (NotDetected); Parainfluenza Virus 2 PCR Not Detected (NotDetected); Parainfluenza Virus 3 PCR Not Detected (NotDetected); Parainfluenza Virus 4 PCR Not Detected (NotDetected); Respiratory Syncytial VirusPCR Not Detected (NotDetected); Rhinovirus/Enterovirus PCR Not Detected (NotDetected)
[2023-01-02] MEDS ORDERED: ALBUTEROL 0.5% NEB SOLN 2.5 MG/0.5 ML VIAL NEB STA (18:57)
--- NOTE | 2023-01-02 20:41 | History & Physical Report ---
Date of Service January 02, 2023 Assessment & Plan (1) COPD exacerbation: Plan: 63-year-old male with past med significant hyperlipidemia, COPD, bronchiectasis, mild obstructive sleep apnea, multiple lung nodules, nocturnal hypoxemia, on home oxygen, right ventricular hypertrophy, migraines, quit smoking 2 years ago, present with ongoing shortness of breath and cough. COPD exasperation Failed outpatient treatment IV Solu-Medrol and nebs in the ER and placed on BiPAP Continue BiPAP for now Continue IV Solu-Medrol 40 mg 3 times daily and nebs [id number] and as needed doxycycline Continue home inhalers If not improving will consult pulmonary Monitor in telemetry History of lung nodule lung nodules and abnormal CT scan Follow-up with pulmonary DVT prophylaxis Lovenox Disposition telemetry floor Full code History of Present Illness Chief Complaint: Shortness of breath Primary Care Provider: Edelmira Cavanaugh MD 63-year-old male with past med significant hyperlipidemia, COPD, bronchiectasis, mild obstructive sleep apnea, multiple lung nodules, nocturnal hypoxemia, on home oxygen, right ventricular hypertrophy, migraines, quit smoking 2 years ago, present with ongoing shortness of breath and cough. Patient states having shortness of the last 11 days he took 10 days of prednisone which was completed yesterday. He also taking nebs [id number] at home but was not getting better so came to the ER. In the ER was tachypneic. He was placed on BiPAP. Currently resting comfortably and answering questions appropriately. Denies any headache. Has cough with some yellowish phlegm. No runny nose or sore throat. Appetite is okay. Denies any fevers. No chest pain. No nausea. No abdominal pain. Normal bowel and bladder movements. Past medical history as mentioned above. Past surgical history. Colonoscopy. Repair of right shoulder cuff avulsion. Right wrist arthroscopy. Social history. Smoking in June 2021. Smoked 1 pack a day for 44 years. No alcohol use. No drug use. Family history. Brother had brain cancer. Father had lung disorder. Kidney failure. Parkinson's. Mother had emphysema. Allergies Allergy/AdvReac Type Severity Reaction Status Date / Time No Known Allergies Allergy Verified 02/09/22 02:49 Home Medications Medication Instructions Recorded Confirmed Type albuterol sulfate 2.5 mg/3 mL 2.5 mg continuous nebulization Q4H 01/02/23 01/02/23 History (0.083 %) solution for nebulization PRN Shortness Of Breath Or Wheezing aspirin 81 mg tablet,delayed 81 mg PO DAILY 01/02/23 01/02/23 History release fluticasone fur. 100 mcg-umeclid 1 inh inhalation DAILY 01/02/23 01/02/23 History 62.5 mcg-vilant 25 mcg inhalat.powder (Trelegy Ellipta) metoprolol succinate 25 mg 12.5 mg PO DAILY 01/02/23 01/02/23 History tablet,extended release 24 hr rosuvastatin 20 mg tablet 20 mg PO DAILY 01/02/23 01/02/23 History Past Med/Surg History Medical History Colon adenoma COPD (chronic obstructive pulmonary disease) inhaler/nebulizer/oxygen Hyperlipidemia On home oxygen therapy 2L N/C hs and prn Surgical History H/O rotator cuff surgery History of arthroscopy of right shoulder History of bronchoscopy History of colonoscopy with polypectomy History of mandibular surgery History of tooth extraction all teeth Family History Mother Lung cancer Other No family history of adverse response to anesthesia Social History Smoking Status: Former smoker Tobacco Type: Cigarettes Cigarettes Per Day: 40; Second Hand Exposure: Yes (parents smoked/ smokes); Do You Dip or Chew Tobacco: No; Hx Alcohol Use: No Hx Substance Use: No Preferred Language: Indonesian Communication Ability: Effective 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 ENT- oropharynx clear Neck- supple, no JVD. Lungs-diminished breath sounds bilaterally, no obvious wheezing or crackles Heart- regular rhythm; no murmur, no gallop. Abdomen- normal bowel sounds, soft, nontender, no distension. Extremities- no pretibial edema, no erythema seen. Neuro- alert, oriented x 3; PERRL, no facial palsy; no dysarthria. Non focal. Skin- warm & dry Results & Data Results & Data Vital Signs (Past 12 Hours) Vital Signs Temp Pulse Pulse Resp BP BP Pulse Ox 01/02/23 20:00 105 H 20 117/90 97 01/02/23 19:22 108 H 19 99 01/02/23 19:20 107 H 19 99 01/02/23 17:46 96 H 22 129/91 98 01/02/23 16:51 103 H 01/02/23 16:05 100 H 20 144/112 H 97 01/02/23 13:55 94 01/02/23 14:03 36.7 C 121 H 19 121/77 95 O2 Del Method O2 Flow Rate FiO2 01/02/23 20:00 BiPAP 01/02/23 19:22 BiPAP 35 01/02/23 19:20 40 01/02/23 17:46 Nasal Cannula 2 01/02/23 16:51 01/02/23 16:05 Nasal Cannula 2 01/02/23 13:55 Nasal Cannula 2 01/02/23 14:03 Room Air Diagnostic Findings Laboratory Results WBC 13.72 K/ul (4.8-10.8) H 01/02/23 15:06 RBC 4.73 M/uL (4.70-6.10) 01/02/23 15:06 Hgb 14.2 g/dl (14.0-18.0) 01/02/23 15:06 Hct 42.8 % (42.0-52.0) 01/02/23 15:06 MCV 90.5 fL (80.0-100.0) 01/02/23 15:06 MCH 30.0 pg (25.0-34.0) 01/02/23 15:06 MCHC 33.2 g/dL (32.0-36.0) 01/02/23 15:06 RDW Std Deviation 46.2 fL (36.4-46.3) 01/02/23 15:06 RDW Coeff of Lashanda 13.9 % (11.5-14.5) 01/02/23 15:06 Plt Count 312 K/uL (130-400) 01/02/23 15:06 MPV 10.0 fL (9.4-12.4) 01/02/23 15:06 Immature Gran % (Auto) 0.7 % 01/02/23 15:06 Neut % (Auto) 68.6 % 01/02/23 15:06 Lymph % (Auto) 13.8 % 01/02/23 15:06 [place] % (Auto) 11.8 % 01/02/23 15:06 Eos % (Auto) 4.6 % 01/02/23 15:06 Baso % (Auto) 0.5 % 01/02/23 15:06 Neut # (Auto) 9.42 K/uL (1.40-6.50) H 01/02/23 15:06 Lymph # (Auto) 1.89 K/uL (1.20-3.40) 01/02/23 15:06 [place] # (Auto) 1.62 K/uL (0.11-0.59) H 01/02/23 15:06 Eos # (Auto) 0.63 K/uL (0.00-0.50) H 01/02/23 15:06 Baso # (Auto) 0.07 K/uL (0.00-0.20) 01/02/23 15:06 Immature Gran # (Auto) 0.09 K/uL (0.01-0.20) 01/02/23 15:06 VBG pH 7.38 (7.36-7.41) 01/02/23 16:47 VBG pCO2 62 mmHg (38-50) H 01/02/23 16:47 VBG pO2 23 mmHg 01/02/23 16:47 VBG HCO3 37 mmol/L 01/02/23 16:47 VBG O2 Saturation < 60.0 % 01/02/23 16:47 VBG Base Excess 9.2 mEq/L 01/02/23 16:47 Sodium 136 mmol/L (136-145) 01/02/23 15:06 Potassium 4.1 mmol/L (3.5-5.1) 01/02/23 15:06 Chloride 97 mmol/L (98-107) L 01/02/23 15:06 Carbon Dioxide 32 mmol/L (21-32) 01/02/23 15:06 Anion Gap 7 (3-11) 01/02/23 15:06 BUN 13 mg/dl (6-23) 01/02/23 15:06 Creatinine 0.83 mg/dl (0.6-1.4) 01/02/23 15:06 Est Cr Clr Drug Dosing Not Reportable 01/02/23 15:06 Est GFR ( Amer) 109.3 ml/min 01/02/23 15:06 Est GFR (Non-Af Amer) 94.3 ml/min 01/02/23 15:06 BUN/Creatinine Ratio 15.7 (10-20) 01/02/23 15:06 Glucose 102 mg/dl (70-99(Fasting)) H 01/02/23 15:06 Calcium 9.8 mg/dl (8.6-10.3) 01/02/23 15:06 Total Bilirubin 0.8 mg/dl (0.2-1.0) 01/02/23 15:06 AST 8 U/L (13-39) L 01/02/23 15:06 ALT 12 U/L (7-52) 01/02/23 15:06 Alkaline Phosphatase 90 U/L (34-104) 01/02/23 15:06 Total Protein 7.8 gm/dl (6.0-8.3) 01/02/23 15:06 Albumin 4.3 gm/dl (3.4-5.0) 01/02/23 15:06 Globulin 3.5 gm/dl (2.5-4.0) 01/02/23 15:06 Albumin/Globulin Ratio 1.2 (0.9-2) 01/02/23 15:06 Adenovirus (PCR) Not Detected (NotDetected) 01/02/23 Unknown B. pertussis DNA (PCR) Not Detected (NotDetected) 01/02/23 Unknown B.parapertussis DNA PCR Not Detected (NotDetected) 01/02/23 Unknown C. pneumoniae DNA (PCR) Not Detected (NotDetected) 01/02/23 Unknown Coronavirus OC43 (PCR) Not Detected (NotDetected) 01/02/23 Unknown Coronavirus HKU1 (PCR) Not Detected (NotDetected) 01/02/23 Unknown Coronavirus 229E (PCR) Not Detected (NotDetected) 01/02/23 Unknown SARS-CoV-2 (PCR) Not Detected (NotDetected) 01/02/23 Unknown Coronavirus NL63 (PCR) Not Detected (NotDetected) 01/02/23 Unknown Human Metapneumovir PCR Not Detected (NotDetected) 01/02/23 Unknown Influenza Type A (PCR) Not Detected (NotDetected) 01/02/23 Unknown Influenza Type B (PCR) Not Detected (NotDetected) 01/02/23 Unknown M. pneumoniae (PCR) Not Detected (NotDetected) 01/02/23 Unknown Parainfluenza 1 (PCR) Not Detected (NotDetected) 01/02/23 Unknown Parainfluenza 2 (PCR) Not Detected (NotDetected) 01/02/23 Unknown Parainfluenza 3 (PCR) Not Detected (NotDetected) 01/02/23 Unknown Parainfluenza 4 (PCR) Not Detected (NotDetected) 01/02/23 Unknown RSV (PCR) Not Detected (NotDetected) 01/02/23 Unknown Entero/Rhino (PCR) Not Detected (NotDetected) 01/02/23 Unknown Impressions Chest X-Ray 01/02/23 14:08 XR chest 1V not portable CLINICAL HISTORY: SOB TECHNIQUE: Single frontal radiograph of the chest was obtained. Comparison: Comparison is made to chest CT 06/05/2022 FINDINGS: No lines and tubes are seen. Calcified aortic knob is seen. The lungs are clear. Lucency in the left hemithorax is nonspecific, may reflect worsening of paraseptal emphysema. Hiatal hernia is considered less likely. IMPRESSION: Lucency is seen in the left hemithorax, nonspecific. Lateral radiograph is recommended. ACT 112: Negative or not required by law. Electronically signed by: Duane Morrison M.D. 01/02/2023 3:00 PM ECG Additional Comments: ECG. Sinus tachycardia rate of 104. No significant change was found Code Status & VTE Plan VTE Prophylaxis Plan VTE Prophylaxis will be ordered: Yes
[2023-01-02] MEDS ORDERED: DOXYCYCLINE HYCLATE 100 MG CAP PO STA (22:22)
[2023-01-02] MEDS ORDERED: POLYETHYLENE (MIRALAX) 17 GM PACK PO PRN (22:22)
[2023-01-02] MEDS ORDERED: NITROGLYCERIN SL 0.4 MG/TAB TAB SL PRN (22:22)
[2023-01-02] MEDS: ENOXAPARIN INJ 40 MG/0.4 ML SYR SQ SCH (23:11)
[2023-01-03 04:00] LABS: Hematocrit (blood only) 40.3 % (42.0-52.0); Hemoglobin 13.4 g/dl (14.0-18.0); Mean Corpuscular Hemoglobin 29.5 pg (25.0-34.0); Mean Corpuscular Hgb Conc 33.3 g/dL (32.0-36.0); Mean Corpuscular Volume 88.8 fL (80.0-100.0); Mean Platelet Volume 10.1 fL (9.4-12.4); Platelet Count 303 K/uL (130-400); RDW Coefficient of Variation 13.6 % (11.5-14.5); RDW Standard Deviation 44.5 fL (36.4-46.3); Red Blood Count 4.54 M/uL (4.70-6.10); White Blood Count 7.62 K/ul (4.8-10.8)
[2023-01-03 04:15] LABS: BUN Creatinine Ratio 23.3 (10-20); Calcium 9.3 mg/dl (8.6-10.3); Creatinine Clr Calc Pharmacy 98.1 ml/min; Est GFR (African American) 115.2 ml/min; Est GFR (Non-African American) 99.4 ml/min; Magnesium 2.3 mg/dl (1.7-2.4); Potassium 4.2 mmol/L (3.5-5.1)
[2023-01-03 04:41] LABS: Basophils # (auto) 0.02 K/uL (0.00-0.20); Basophils % (auto) 0.3 %; Immature Granulocytes # (auto) 0.07 K/uL (0.01-0.20); Immature Granulocytes % (auto) 0.9 %; Lymphocytes # (auto) 0.56 K/uL (1.20-3.40); Lymphocytes % (auto) 7.3 %; Monocytes # (auto) 0.07 K/uL (0.11-0.59); Monocytes % (auto) 0.9 %; Neutrophils % (auto) 90.6 %
[2023-01-03] MEDS: METOPROLOL SUCC 25MG EXT REL TAB PO SCH (07:33)
[2023-01-03] MEDS: ACETAMINOPHEN 325 MG TAB PO PRN ×2 (07:39→20:29)
[2023-01-03] MEDS: ROSUVASTATIN CALCIUM 20 MG TAB PO SCH (07:40)
[2023-01-03] MEDS: ASPIRIN 81 MG ECTAB PO SCH (07:41)
[2023-01-03] MEDS: FLUTICASONE FUROATE 100MCG 14 PUFFS/INHALER INH SCH (07:43)
[2023-01-03] MEDS: UMECLIDINIUM/VILANTEROL 62.5/25MCG 7 PUFFS/INHALER INH SCH (07:43)
[2023-01-03] MEDS: ALBUT/IPRATROP 3MG/0.5MG NEB 3 ML VIAL NEB SCH ×4 (07:57→19:32)
[2023-01-03] MEDS ORDERED: methylPREDNISolone 40 MG in SYRINGE 0 ML IV SCH (08:00)
[2023-01-03] MEDS ORDERED: DOXYCYCLINE HYCLATE 100 MG CAP PO SCH (09:00)
[2023-01-03] MEDS ORDERED: NON-FORMULARY MEDICATION (Fluticasone-Umeclidin-Vilanter [Trelegy Ellipta] 100-62.5-25 mcg INH SCH (09:00)
[2023-01-03] MEDS ORDERED: CYCLOBENZAPRINE HCL 10 MG TAB PO STA (10:41)
--- NOTE | 2023-01-03 10:59 | Hospitalist Progress Note ---
Date of Service January 03, 2023 Assessment & Plan (1) COPD exacerbation: Plan: Mr. Hodge is a 63-year-old male with past med significant hyperlipidemia, COPD, bronchiectasis, mild obstructive sleep apnea, multiple lung nodules, nocturnal hypoxemia, on home oxygen, right ventricular hypertrophy, migraines, quit smoking 2 years ago, who was admitted on 01/02 due to concerns of COPD exacerbation. Patient with audible wheezing on admission and notable improvement overnight. Patient interested in obtaining CPAP/Bipap for home #Acute on chronic hypoxic respiratory failure #Acute COPD exacerbation, group D #Bronchiectasis with history of mucous plugging #Nocturnal Hypoxia Continue 2 LPM at rest and with sleep, 4 LPM with exertion Failed outpatient treatment with steroid taper; increased SOB, sputum production, cough IV Solu-Medrol and nebs in the ER and placed on BiPAP Continue BiPAP at bedtime Transition to prednisone 40mg po Transition to Augmentin 500 TID for 7 days Continue home inhalers Up to date on pneumonia vaccine (due at 65) Maintain SpO2 between 89-94% Discuss with CM obtaining CPAP/BiPAP for home #Lung nodule lung nodules and abnormal CT scan Follow-up with pulmonary; stable since 06/2022 CTM #HLD Continue statin DVT prophylaxis Lovenox Disposition telemetry floor Full code Admission and Anticipated Discharge Date Admission Date: January 02, 2023 Subjective NAEO Reports notable improvement, states he no longer hears/feels wheezing and is ecstatic to be off of oxygen. Notably he reports while wearing O2 at home, often his saturations are in the high 90s. He was unaware of his O2 goals Review of Systems Review of Systems: All systems reviewed & are unremarkable except as noted in Subjective Physical Exam Constitutional: WD/WN, vitals as above Respiratory: no wheezing appreciated, good air entry appreciated in all lung lam, decreased sounds in periphery Results & Data Results & Data Vital Signs (Past 12 Hours) Vital Signs Temp Pulse Pulse Resp BP Pulse Ox O2 Del Method 01/03/23 10:13 Room Air 01/03/23 08:00 76 01/03/23 08:00 36.5 C 96 H 18 119/71 94 Nasal Cannula 01/03/23 07:57 94 H 18 90 Room Air 01/03/23 03:00 36.4 C L 87 14 123/67 99 Nasal Cannula 01/03/23 02:35 104 H 22 96 01/02/23 23:56 BiPAP O2 Flow Rate FiO2 01/03/23 10:13 01/03/23 08:00 01/03/23 08:00 2 01/03/23 07:57 01/03/23 03:00 01/03/23 02:35 35 01/02/23 23:56 35 Laboratory Results Short CBC 01/02/23 01/03/23 Range/Units 15:06 03:32 WBC 13.72 H 7.62 (4.8-10.8) K/ul Hgb 14.2 13.4 L (14.0-18.0) g/dl Hct 42.8 40.3 L (42.0-52.0) % Plt Count 312 303 (130-400) K/uL BMP 01/02/23 01/03/23 15:06 03:32 Sodium 136 133 L Potassium 4.1 4.2 Chloride 97 L 98 Carbon Dioxide 32 27 BUN 13 17 Creatinine 0.83 0.73 Glucose 102 H 176 H Calcium 9.8 9.3 Liver Function 01/02/23 Range/Units 15:06 Total Bilirubin 0.8 (0.2-1.0) mg/dl AST 8 L (13-39) U/L ALT 12 (7-52) U/L Alkaline Phosphatase 90 (34-104) U/L Albumin 4.3 (3.4-5.0) gm/dl Diagnostic Findings Performed 2021: CONCLUSION: PFT shows evidence of severe obstructive ventilatory impairment. There is suggestion of bronchodilator response. Uncorrected diffusion capacity is severely decreased at 35% of predicted. Lung volumes are suggestive of air trapping.This interpretation has been electronically signed: Kurt Johnson 10/11/2021 07:53:25 PM Medications Administered Home Medications Medication Instructions Recorded Confirmed Last Taken albuterol sulfate 2.5 mg/3 mL 2.5 mg continuous nebulization Q4H 01/02/2301/02 Unknown (0.083 %) solution for nebulization PRN Shortness Of Breath Or Wheezing aspirin 81 mg tablet,delayed 81 mg PO DAILY 01/02/23 01/02/23 Unknown release fluticasone fur. 100 mcg-umeclid 1 inh inhalation DAILY 01/02/23 01/02/23 Unknown 62.5 mcg-vilant 25 mcg inhalat.powder (Trelegy Ellipta) metoprolol succinate 25 mg 12.5 mg PO DAILY 01/02/23 01/02/23 Unknown tablet,extended release 24 hr rosuvastatin 20 mg tablet 20 mg PO DAILY 01/02/23 01/02/23 Unknown Active Medications Generic Name Dose Route Start Last Admin Trade Name Freq PRN Reason Stop Dose Admin Acetaminophen 650 mg 01/02/23 22:22 01/03/23 07:39 Acetaminophen 325 Mg Tab PO 02/01/23 22:21 650 mg Q4H PRN Administration Pain or Fever Albuterol 3 ml 01/03/23 07:00 01/03/23 07:57 Albut/Ipratrop 3mg/0.5mg Neb 3 Ml Vial NEB 02/02/23 06:59 3 ml QIDR MARCELLUS Administration Protocol Aspirin 81 mg 01/03/23 09:00 01/03/23 07:41 Aspirin 81 Mg Ectab PO 02/02/23 08:59 81 mg DAILY MARCELLUS Administration Enoxaparin Sodium 40 mg 01/02/23 22:22 01/02/23 23:11 Enoxaparin Inj 40 Mg/0.4 Ml Syr SQ 02/01/23 22:21 40 mg HS MARCELLUS Administration Fluticasone Furoate 1 puffs 01/03/23 09:00 01/03/23 07:43 Fluticasone Furoate 100mcg 14 Puffs/Inhaler INH 02/02/23 08:59 1 puffs DAILY MARCELLUS Administration Metoprolol Succinate 12.5 mg 01/03/23 09:00 01/03/23 07:33 Metoprolol Succ 25mg Ext Rel Tab PO 02/02/23 08:59 Not Given DAILY MARCELLUS Rosuvastatin Calcium 20 mg 01/03/23 09:00 01/03/23 07:40 Rosuvastatin Calcium 20 Mg Tab PO 02/02/23 08:59 20 mg DAILY MARCELLUS Administration Umeclidinium/Vilanterol 1 puffs 01/03/23 09:00 01/03/23 07:43 Umeclidinium/Vilanterol 62.5/25mcg 7 Puffs/Inhaler INH 02/02/23 08:59 1 puffs DAILY MARCELLUS Administration
[2023-01-03] MEDS: AMOXICILLIN/CLAVULANATE 875 MG TAB PO SCH ×2 (11:41→17:31)
[2023-01-03] MEDS: CYCLOBENZAPRINE HCL 10 MG TAB PO PRN ×2 (17:31→23:51)
[2023-01-03] MEDS: guaiFENesin 600 MG TABCR PO SCH (20:23)
[2023-01-03] MEDS: ENOXAPARIN INJ 40 MG/0.4 ML SYR SQ SCH (20:24)
--- NOTE | 2023-01-03 22:45 | Electrocardiogram Report ---
Test Reason : Blood Pressure : / mmHG Vent. Rate : 104 BPM Atrial Rate : 104 BPM P-R Int : 180 ms QRS Dur : 066 ms QT Int : 316 ms P-R-T Axes : 078 048 073 degrees QTc Int : 415 ms Sinus tachycardia Otherwise normal ECG When compared with ECG of 05-JUN-2022 10:41, No significant change was found Confirmed by Moncho Logan ([id number]) on 01/03/2023 10:45:22 PM Referred By: REFERRED SELF Confirmed By:Moncho Logan
[2023-01-04 05:52] LABS: Base Excess ABG 8.1 mEq/L (-9-1.8); HCO3 ABG 33 mmol/L (19-24); Oxygen Saturation ABG 99.3 % (90-95); PCO2 ABG 48 mmHg (35-46); PO2 ABG 95 mmHg (80-95); pH ABG 7.45 (7.35-7.45)
[2023-01-04 06:01] LABS: Basophils # (auto) 0.02 K/uL (0.00-0.20); Basophils % (auto) 0.1 %; Hematocrit (blood only) 36.4 % (42.0-52.0); Immature Granulocytes # (auto) 0.11 K/uL (0.01-0.20); Immature Granulocytes % (auto) 0.6 %; Lymphocytes # (auto) 1.54 K/uL (1.20-3.40); Lymphocytes % (auto) 8.1 %; Mean Corpuscular Hemoglobin 29.6 pg (25.0-34.0); Mean Corpuscular Volume 89.7 fL (80.0-100.0); Mean Platelet Volume 10.2 fL (9.4-12.4); Monocytes # (auto) 1.24 K/uL (0.11-0.59); Monocytes % (auto) 6.5 %; Neutrophils # (auto) 16.06 K/uL (1.40-6.50); Neutrophils % (auto) 84.7 %; Platelet Count 296 K/uL (130-400); RDW Coefficient of Variation 13.6 % (11.5-14.5); RDW Standard Deviation 44.3 fL (36.4-46.3); Red Blood Count 4.06 M/uL (4.70-6.10); White Blood Count 18.97 K/ul (4.8-10.8)
[2023-01-04 06:16] LABS: BUN Creatinine Ratio 34.3 (10-20); Calcium 9.1 mg/dl (8.6-10.3); Creatinine Clr Calc Pharmacy 102.3 ml/min; Est GFR (African American) 117.2 ml/min; Est GFR (Non-African American) 101.1 ml/min; Magnesium 2.2 mg/dl (1.7-2.4); Phosphorus 3.2 mg/dl (2.5-4.9); Potassium 4.3 mmol/L (3.5-5.1)
[2023-01-04 07:09] LABS: Allen Test Pos (Pos)
[2023-01-04] MEDS: ALBUT/IPRATROP 3MG/0.5MG NEB 3 ML VIAL NEB SCH ×4 (07:33→19:34)
[2023-01-04] MEDS: guaiFENesin 600 MG TABCR PO SCH ×2 (09:00→19:28)
[2023-01-04] MEDS: AMOXICILLIN/CLAVULANATE 875 MG TAB PO SCH ×2 (09:01→16:19)
[2023-01-04] MEDS: ASPIRIN 81 MG ECTAB PO SCH (09:02)
[2023-01-04] MEDS: predniSONE 20 MG TAB PO SCH (09:02)
[2023-01-04] MEDS: METOPROLOL SUCC 25MG EXT REL TAB PO SCH (09:02)
[2023-01-04] MEDS: ROSUVASTATIN CALCIUM 20 MG TAB PO SCH (09:03)
[2023-01-04] MEDS: FLUTICASONE FUROATE 100MCG 14 PUFFS/INHALER INH SCH (09:03)
[2023-01-04] MEDS: UMECLIDINIUM/VILANTEROL 62.5/25MCG 7 PUFFS/INHALER INH SCH (09:03)
--- NOTE | 2023-01-04 09:30 | Electrocardiogram Report ---
Test Reason : Blood Pressure : / mmHG Vent. Rate : 097 BPM Atrial Rate : 097 BPM P-R Int : 196 ms QRS Dur : 072 ms QT Int : 368 ms P-R-T Axes : 078 040 062 degrees QTc Int : 467 ms Normal sinus rhythm Nonspecific T wave abnormality Anterolateral leads Abnormal ECG When compared with ECG of 02-JAN-2023 16:25, Nonspecific T wave abnormality, worse in Lateral leads QT has lengthened Confirmed by Medardo Raphael ([id number]) on 01/04/2023 9:30:33 AM Referred By: REFERRED SELF Confirmed By:Medardo Raphael
[2023-01-04] MEDS ORDERED: INFLUENZA VIRUS QUADRIVALENT VACCINE (IIV4) 0.5 ML SYR IM ONE (15:16)
--- NOTE | 2023-01-04 15:26 | Hospitalist Progress Note ---
Date of Service January 04, 2023 Assessment & Plan (1) COPD exacerbation: Plan: Mr. Hodge is a 63-year-old male with past med significant hyperlipidemia, COPD, bronchiectasis, mild obstructive sleep apnea, multiple lung nodules, nocturnal hypoxemia, on home oxygen, right ventricular hypertrophy, migraines, quit smoking 2 years ago, who was admitted on 01/02 due to concerns of COPD exacerbation. Patient with audible wheezing on admission and notable improvement overnight. Patient interested in obtaining CPAP/Bipap for home #Acute on chronic hypoxic respiratory failure #Acute COPD exacerbation, group D #Bronchiectasis with history of mucous plugging #Nocturnal Hypoxia Continue 2 LPM at rest and with sleep, 4 LPM with exertion Failed outpatient treatment with steroid taper; increased SOB, sputum production, cough IV Solu-Medrol and nebs in the ER and placed on BiPAP Continue BiPAP at bedtime prn while inpatient Continue to prednisone 40mg po Continue Augmentin 500 TID for 7 days Continue home inhalers Up to date on pneumonia vaccine (due at 65) Maintain SpO2 between 89-94% Negative overnight spirometry/abg qualifying for bipap; will need OP sleep study Start Singulair Flu vaccine #HTN #RVH iso COPD Started on Metoprolol succinate during 06/2022 hospitaliztion Continue Metoprolol succinate 12.5mg daily #Lung nodule lung nodules and abnormal CT scan Follow-up with pulmonary; stable since 06/2022 CTM #HLD Continue statin DVT prophylaxis Lovenox Disposition telemetry floor Full code Admission and Anticipated Discharge Date Admission Date: January 02, 2023 Subjective NAEO Feels nervous for discharge, requesting additional day with dispo for am Review of Systems Review of Systems: All systems reviewed & are unremarkable except as noted in Subjective Physical Exam Constitutional: WD/WN, vitals as above Respiratory: no further wheeezing crackles, clear breath sounds Cardiovascular: RRR, no murmur, no edema Results & Data Results & Data Vital Signs (Past 12 Hours) Vital Signs Temp Pulse Pulse Resp BP Pulse Ox O2 Del Method 01/04/23 15:00 82 01/04/23 12:12 90 16 94 Nasal Cannula 01/04/23 11:00 36.8 C 101 H 18 132/85 97 Room Air 01/04/23 08:45 94 Nasal Cannula 01/04/23 08:44 84 L Room Air 01/04/23 08:43 36.7 C 90 16 121/73 95 Nasal Cannula 01/04/23 08:00 82 01/04/23 07:55 Room Air 01/04/23 07:35 92 H 16 96 Nasal Cannula O2 Flow Rate 01/04/23 15:00 01/04/23 12:12 2 01/04/23 11:00 01/04/23 08:45 2 01/04/23 08:44 01/04/23 08:43 2 01/04/23 08:00 01/04/23 07:55 01/04/23 07:35 2 Laboratory Results Short CBC 01/04/23 Range/Units 05:41 WBC 18.97 H (4.8-10.8) K/ul Hgb 12.0 L (14.0-18.0) g/dl Hct 36.4 L (42.0-52.0) % Plt Count 296 (130-400) K/uL BMP 01/04/23 05:41 Sodium 136 Potassium 4.3 Chloride 101 Carbon Dioxide 30 BUN 24 H Creatinine 0.70 Glucose 133 H Calcium 9.1 Medications Administered Home Medications Medication Instructions Recorded Confirmed Last Taken albuterol sulfate 2.5 mg/3 mL 2.5 mg continuous nebulization Q4H 01/02/23 01/02/23 Unknown (0.083 %) solution for nebulization PRN Shortness Of Breath Or Wheezing aspirin 81 mg tablet,delayed 81 mg PO DAILY 01/02/23 01/02/23 Unknown release fluticasone fur. 100 mcg-umeclid 1 inh inhalation DAILY 01/02/23 01/02/23 Unknown 62.5 mcg-vilant 25 mcg inhalat.powder (Trelegy Ellipta) metoprolol succinate 25 mg 12.5 mg PO DAILY 01/02/23 01/02/23 Unknown tablet,extended release 24 hr rosuvastatin 20 mg tablet 20 mg PO DAILY 01/02/23 01/02/23 Unknown Active Medications Generic Name Dose Route Start Last Admin Trade Name Freq PRN Reason Stop Dose Admin Acetaminophen 650 mg 01/02/23 22:22 01/03/23 20:29 Acetaminophen 325 Mg Tab PO 02/01/23 22:21 650 mg Q4H PRN Administration Pain or Fever Albuterol 3 ml 01/03/23 07:00 01/04/23 12:10 Albut/Ipratrop 3mg/0.5mg Neb 3 Ml Vial NEB 02/02/23 06:59 3 ml QIDR MARCELLUS Administration Protocol Amoxicillin/Clavulanate Potassium 1 tab 01/03/23 12:00 01/04/23 09:01 Amoxicillin/Clavulanate 875 Mg Tab PO 01/10/23 11:59 1 tab BIDM MARCELLUS Administration Protocol Aspirin 81 mg 01/03/23 09:00 01/04/23 09:02 Aspirin 81 Mg Ectab PO 02/02/23 08:59 81 mg DAILY MARCELLUS Administration Cyclobenzaprine HCl 10 mg 01/03/23 17:12 01/03/23 23:51 Cyclobenzaprine Hcl 10 Mg Tab PO 02/02/23 17:11 10 mg Q6H PRN Administration Pain Enoxaparin Sodium 40 mg 01/02/23 22:22 01/03/23 20:24 Enoxaparin Inj 40 Mg/0.4 Ml Syr SQ 02/01/23 22:21 40 mg HS MARCELLUS Administration Fluticasone Furoate 1 puffs 01/03/23 09:00 01/04/23 09:03 Fluticasone Furoate 100mcg 14 Puffs/Inhaler INH 02/02/23 08:59 1 puffs DAILY MARCELLUS Administration Guaifenesin 1,200 mg 01/03/23 21:00 01/04/23 09:00 Guaifenesin 600 Mg Tabcr PO 02/02/23 20:59 1,200 mg Q12 MARCELLUS Administration Metoprolol Succinate 12.5 mg 01/03/23 09:00 01/04/23 09:02 Metoprolol Succ 25mg Ext Rel Tab PO 02/02/23 08:59 12.5 mg DAILY MARCELLUS Administration Prednisone 40 mg 01/04/23 09:00 01/04/23 09:02 Prednisone 20 Mg Tab PO 01/07/23 08:59 40 mg DAILY MARCELLUS Administration Rosuvastatin Calcium 20 mg 01/03/23 09:00 01/04/23 09:03 Rosuvastatin Calcium 20 Mg Tab PO 02/02/23 08:59 20 mg DAILY MARCELLUS Administration Umeclidinium/Vilanterol 1 puffs 01/03/23 09:00 01/04/23 09:03 Umeclidinium/Vilanterol 62.5/25mcg 7 Puffs/Inhaler INH 02/02/23 08:59 1 puffs DAILY MARCELLUS Administration
[2023-01-04] MEDS: CYCLOBENZAPRINE HCL 10 MG TAB PO PRN ×2 (16:23→22:28)
[2023-01-04] MEDS: ENOXAPARIN INJ 40 MG/0.4 ML SYR SQ SCH (19:30)
[2023-01-04] MEDS ORDERED: MONTELUKAST SODIUM 10 MG TABLET PO SCH (21:00)
[2023-01-05 06:05] LABS: Hematocrit (blood only) 39.8 % (42.0-52.0); Hemoglobin 12.8 g/dl (14.0-18.0); Mean Corpuscular Hemoglobin 29.6 pg (25.0-34.0); Mean Corpuscular Hgb Conc 32.2 g/dL (32.0-36.0); Mean Corpuscular Volume 92.1 fL (80.0-100.0); Mean Platelet Volume 10.4 fL (9.4-12.4); Platelet Count 319 K/uL (130-400); RDW Coefficient of Variation 14.2 % (11.5-14.5); RDW Standard Deviation 48.4 fL (36.4-46.3); Red Blood Count 4.32 M/uL (4.70-6.10); White Blood Count 14.84 K/ul (4.8-10.8)
[2023-01-05 06:26] LABS: BUN Creatinine Ratio 22.7 (10-20); Calcium 8.9 mg/dl (8.6-10.3); Creatinine Clr Calc Pharmacy 81.4 ml/min; Est GFR (African American) 106.7 ml/min; Est GFR (Non-African American) 92.1 ml/min; Magnesium 2.2 mg/dl (1.7-2.4); Phosphorus 3.7 mg/dl (2.5-4.9); Potassium 4.5 mmol/L (3.5-5.1)
[2023-01-05] MEDS: ALBUT/IPRATROP 3MG/0.5MG NEB 3 ML VIAL NEB SCH ×2 (07:26→11:04)
[2023-01-05] MEDS: AMOXICILLIN/CLAVULANATE 875 MG TAB PO SCH (08:07)
[2023-01-05] MEDS: ASPIRIN 81 MG ECTAB PO SCH (08:08)
[2023-01-05] MEDS: UMECLIDINIUM/VILANTEROL 62.5/25MCG 7 PUFFS/INHALER INH SCH (08:08)
[2023-01-05] MEDS: FLUTICASONE FUROATE 100MCG 14 PUFFS/INHALER INH SCH (08:08)
[2023-01-05] MEDS: guaiFENesin 600 MG TABCR PO SCH (08:09)
[2023-01-05] MEDS: predniSONE 20 MG TAB PO SCH (08:10)
[2023-01-05] MEDS: METOPROLOL SUCC 25MG EXT REL TAB PO SCH (08:10)
[2023-01-05] MEDS: ROSUVASTATIN CALCIUM 20 MG TAB PO SCH (08:10)
--- NOTE | 2023-01-05 12:16 | Discharge Summary ---
Discharge Summary Date of Service January 05, 2023 Notes For Next Care Provider Consider sleep study RSV and COVID booster Flu shot administered 01/04 Medication Changes From Visit -Monetlukast 10mg daily -1 dose prednisone 40mg to complete burst duration -Augmentin BID EOT 01/10 -Flexeril 10mg q6h prn due to bilateral calf spasms (lytes stable) Admission HPI Per Admitting Provider 63-year-old male with past med significant hyperlipidemia, COPD, bronchiectasis, mild obstructive sleep apnea, multiple lung nodules, nocturnal hypoxemia, on home oxygen, right ventricular hypertrophy, migraines, quit smoking 2 years ago, present with ongoing shortness of breath and cough. Patient states having shortness of the last 11 days he took 10 days of prednisone which was completed yesterday. He also taking nebs [id number]-gau-rkrml at home but was not getting better so came to the ER. In the ER was tachypneic. He was placed on BiPAP. Currently resting comfortably and answering questions appropriately. Denies any headache. Has cough with some yellowish phlegm. No runny nose or sore throat. Appetite is okay. Denies any fevers. No chest pain. No nausea. No abdominal pain. Normal bowel and bladder movements. Past medical history as mentioned above. Past surgical history. Colonoscopy. Repair of right shoulder cuff avulsion. Right wrist arthroscopy. Social history. Smoking in June 2021. Smoked 1 pack a day for 44 years. No alcohol use. No drug use. Family history. Brother had brain cancer. Father had lung disorder. Kidney failure. Parkinson's. Mother had emphysema. Principal Dx & Hospital Course #1 = Principal Diagnosis (1) COPD exacerbation: Mr. Hodge is a 63-year-old male with past med significant hyperlipidemia, COPD, bronchiectasis, mild obstructive sleep apnea, multiple lung nodules, nocturnal hypoxemia, on home oxygen, right ventricular hypertrophy, migraines, quit smoking 2 years ago, who was admitted on 01/02 due to concerns of COPD exacerbation. Patient with audible wheezing on admission and notable improvement overnight into 01/03. Patient interested in obtaining CPAP/Bipap for home, but did not qualify for home bipap per overnight oximetry. In an attempt to optimize patient, started on singulair. Patient recieved flu vaccination while inpatient, and advised to seek next boost for COVID and RSV. On day of discharge, patient states he "feels better than usual baseline" and verbalized understanding of plan once discharged. #Acute on chronic hypoxic respiratory failure *improved to baseline #Acute COPD exacerbation, group D *stable #Bronchiectasis with history of mucous plugging #Nocturnal Hypoxia Failed outpatient treatment with steroid taper; increased SOB, sputum production, cough IV Solu-Medrol and nebs in the ER and placed on BiPAP Continue to prednisone 40mg po EOT 01/06 Continue Augmentin BID EOT 01/10 Continue home inhalers as prescribed Up to date on pneumonia vaccine (due at 65) Maintain SpO2 between 89-94% Negative overnight spirometry/abg qualifying for bipap; will need OP sleep study Continue singulair 10mg daily Flu vaccine on 01/04, recommend covid booster/RSV #HTN #RVH iso COPD Started on Metoprolol succinate during 06/2022 hospitalization Continue Metoprolol succinate 12.5mg daily #Lung nodule lung nodules and abnormal CT scan Follow-up with pulmonary; stable since 06/2022 CTM #HLD Continue statin Encouraged OP follow up with PCP and Pulm, as well as recommended OP Sleep Study. Discharge Exam Constitutional WD/WN, vitals as above Respiratory on room air, no wheezing Cardiovascular RRR, no murmur, no edema Updated Medication List Medication Instructions Recorded Confirmed Type albuterol sulfate 2.5 mg/3 mL 2.5 mg continuous nebulization Q4H 01/02/23 01/02/23 History (0.083 %) solution for nebulization PRN Shortness Of Breath Or Wheezing aspirin 81 mg tablet,delayed 81 mg PO DAILY 01/02/23 01/02/23 History release fluticasone fur. 100 mcg-umeclid 1 inh inhalation DAILY 01/02/23 01/02/23 History 62.5 mcg-vilant 25 mcg inhalat.powder (Trelegy Ellipta) metoprolol succinate 25 mg 12.5 mg PO DAILY 01/02/23 01/02/23 History tablet,extended release 24 hr rosuvastatin 20 mg tablet 20 mg PO DAILY 01/02/23 01/02/23 History amoxicillin 875 mg-potassium 1 tab PO BIDM 4 days #8 tabs 01/05/23 Rx clavulanate 125 mg tablet cyclobenzaprine 10 mg tablet 10 mg PO Q6H PRN muscle spasm #30 01/05/23 Rx tabs montelukast 10 mg tablet 10 mg PO HS #30 tabs 01/05/23 Rx prednisone 20 mg tablet 20 mg PO DAILY #2 tabs 01/05/23 Rx Hospital Stay Data Consultations 01/02/23 19:43 ED Decision to Admit Stat Pending Results Patient Have Any Pending Studies at Discharge: No Discharge Instructions Given to Patient (Per Discharging Provider) You were admitted for COPD exacerbation. You were treated with steroid and antibiotics. You will continue the following antibiotic until 01/10: -Augmentin 1 tab twice a day You have 1 dose of steroid left to complete a total of 5 days -Prednisone 40mg in morning You were started on Montelukast (Singulair) 10 mg. Please take this at night. This is in adjunct to your COPD inhaler regimen. Please continue all your medications as prescribed. You received your flu vaccination on 01/04. You still require COVID. Talk to your PCP regarding RSV vaccination. Please discuss need for Sleep study as you did experience multiple desaturations/drops in oxygen, but not enough to qualify for BiPAP. Total Time Total Time Spent Total Time Spent (In Minutes): 45
== END 2023-01-05 13:11 | disposition home or self-care (01) | DRG 190 ==
LOC: ED 13:53 → 4W 20:28

== ENCOUNTER 2023-05-13 11:00 | Inpatient (IN) ==
--- NOTE | 2023-05-13 11:11 | Emergency Department Note ---
Impression & Plan COPD exacerbation, Pneumonia ED Provider Note NAME: JENNIE BRIONES AGE: 63 SEX: M : 1960 ARRIVES VIA: Ambulance INFORMANT: Patient, EMS ED PROVIDER(S): Aj García DO CHIEF COMPLAINT: Shortness of breath HPI: The patient is a 63-year-old male who presented to the emergency department by ambulance for an evaluation of shortness of breath. I did receive a prehospital notification about the patient. The patient was having worsening shortness of breath with exertion. Normally he wears 2 L of nasal cannula. He does have a history of COPD. He had a low-grade fever and his significant other was recently diagnosed with RSV. The patient started having coughing which was nonproductive. He denies having any hemoptysis or lower extremity swelling. He denies having any chest pain. ROS: See above HPI for pertinent positives & negatives. A total of 10 systems reviewed and were otherwise negative. PAST MEDICAL HISTORY: See Below PAST SURGICAL HISTORY: See Below FAMILY HISTORY: See Below SOCIAL HISTORY: See Below HOME MEDICATIONS: See Below ALLERGIES: See Below VITALS: See Below PHYSICAL EXAMINATION: GENERAL: The patient was evaluated in the hallway as there is no bed readily available. The patient is awake and alert. He is somewhat anxious. EYES: The conjunctivae are clear. The pupils are round and reactive. EARS, NOSE, MOUTH AND THROAT: The nose is without any evidence of any deformity. Mucous membranes are moist. Tongue is midline. NECK: The neck is nontender and supple. RESPIRATORY: Diminished breath sounds are noted throughout. There is conversational dyspnea as well as retractions. CARDIOVASCULAR: Regular rate and rhythm noted there no murmurs rubs or gallops normal S1 normal S2. GASTROINTESTINAL: The abdomen is soft. Abdomen is nontender. MUSCULOSKELETAL/EXTREMITIES: There is no evidence of gross deformity full range of motion is noted in the hips and shoulders. SKIN: There is no obvious evidence of any rash. There are no petechiae, pallor or cyanosis noted. NEUROLOGIC: Patient is awake alert and oriented x3 MEDICAL DECISION MAKING: The patient is a 63-year-old male who presented to the emergency department for shortness of breath. The patient has a history of COPD. His significant other was diagnosed with RSV and the patient states he started feeling ill over the course the last few days. I did receive a prehospital notification about the patient. He was treated with a DuoNeb prior to arrival. I discussed patient's laboratory and radiographic studies with him. He was further treated with IV steroids IV antibiotics IV fluids as well as further DuoNeb therapy. He was significantly proved on reevaluation. On his initial presentation the patient was having significant retractions and respiratory distress. I do not feel the patient would be a good candidate for outpatient treatment at this time. Chest x-ray does appear to be consistent with diffuse infiltrate. This could represent pneumonia. [facility] the [facility] have agreed to evaluate the patient in the emergency department for further management and disposition. Triage Nursing notes reviewed. Prior medical records reviewed Vital Signs: reviewed and remarkable for tachycardia. Differential diagnosis: Reactive airway disease, pneumonia, pneumothorax, COPD, CHF, infections, cardiac ischemia, pulmonary embolism, musculoskeletal, gastrointestinal, as well as other pathologies. ER treatment provided: See below Diagnostics interpreted by me: ECG: EKG was obtained in the emergency department. My interpretation is sinus tachycardia at 137 bpm. There were no PVCs noted. Nonspecific ST abnormalities were noted. This was compared to a tracing from January 02, 2023. There is an increase in rate otherwise no changes were noted Cardiac Monitoring: An order was placed for continuous cardiac monitoring. The monitor shows a rate of 118 bpm with sinus tachycardia. Laboratory studies: As stated above and show below. Imaging studies: See below. Radiographic imaging was reviewed by myself Consultation(s): I discussed this case with Bonnie who [facility] ED COURSE: Procedures: none Critical Care: I have personally spent greater than 35 minutes of critical care time in the direct management of this patient. This includes bedside care, interpretation of diagnostic studies, and testing, discussion with consultants, patient, and family members, and other required patient management activities. This 35 minutes is in excess of all separately billable procedures. Past Med/Surg History Medical History Colon adenoma Hyperlipidemia On home oxygen therapy 2L N/C hs and prn COPD (chronic obstructive pulmonary disease) inhaler/nebulizer/oxygen Surgical History History of arthroscopy of right shoulder History of colonoscopy with polypectomy History of mandibular surgery History of tooth extraction all teeth History of bronchoscopy H/O rotator cuff surgery Family History Mother Lung cancer Other No family history of adverse response to anesthesia Social History Smoking Status: Former smoker Tobacco Type: Cigarettes Cigarettes Per Day: 40; Second Hand Exposure: Yes (parents smoked/ smokes); Do You Dip or Chew Tobacco: No; Hx Alcohol Use: No Hx Substance Use: No Preferred Language: Burkinan Communication Ability: Effective 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 100 mcg-umeclid 1 inh inhalation DAILY 01/02/23 05/13/23 62.5 mcg-vilant 25 mcg inhalat.powder (Trelegy Ellipta) metoprolol succinate 25 mg 12.5 mg PO DAILY 01/02/23 05/13/23 tablet,extended release 24 hr rosuvastatin 20 mg tablet 20 mg PO DAILY 01/02/23 05/13/23 levalbuterol HCl 1.25 mg/3 mL 1.25 mg inhalation Q8H PRN 05/13/23 05/13/23 solution for nebulization Shortness Of Breath Or Wheezing [id number]-[id number] acid 400 1 tab PO DAILY 05/13/23 05/13/23 mcg-vit K 20 mcg-lycop 300 mcg tablet (Men's Daily Formula) Previous Rx's Medication Instructions Recorded montelukast 10 mg tablet 10 mg PO HS #30 tabs 01/05/23 Results & Data (ED) Vital Signs Vital Signs - 24 hr 05/13/23 11:36 05/13/23 11:36 05/13/23 11:46 Temperature 37 C Temperature Source Oral Pulse Rate 130 H 125 H Pulse Rate [Left Finger] Respiratory Rate 28 H 26 H Respiratory Effort / Characteristics Short of Breath Respiratory Pattern Tachypnea Blood Pressure 119/88 Blood Pressure [Left Arm] Blood Pressure Mean 98 Blood Pressure Mean [Left Arm] Blood Pressure Position [Left Arm] Pulse Oximetry 94 94 94 Oxygen Delivery Method Nasal Cannula Nasal Cannula Nasal Cannula Oxygen Flow Rate 2 2 2 Sepsis Recent Fever Within 48 Hours Yes Sepsis New/Unexplained Change in Mental Status No Sepsis Action Taken by Nursing No Action Required 05/13/23 12:15 05/13/23 13:01 Temperature Temperature Source Pulse Rate 130 H Pulse Rate [Left Finger] 118 H Respiratory Rate 24 Respiratory Effort / Characteristics Respiratory Pattern Blood Pressure Blood Pressure [Left Arm] 138/84 Blood Pressure Mean Blood Pressure Mean [Left Arm] 102 Blood Pressure Position [Left Arm] Sitting Pulse Oximetry 100 Oxygen Delivery Method Nasal Cannula Oxygen Flow Rate 2 Sepsis Recent Fever Within 48 Hours Sepsis New/Unexplained Change in Mental Status Sepsis Action Taken by Half-Way Medications Current Medication List: was personally reviewed by me Laboratory Data Attestation: I reviewed the patient's lab results. 05/13/23 11:29 05/13/23 11:29 Lab Results 05/13/23 05/13/23 05/13/23 Range/Units 11:29 11:37 11:50 WBC 20.16 H (4.8-10.8) K/ul RBC 4.31 L (4.70-6.10) M/uL Hgb 12.8 L (14.0-18.0) g/dl Hct 40.6 L (42.0-52.0) % MCV 94.2 (80.0-100.0) fL MCH 29.7 (25.0-34.0) pg MCHC 31.5 L (32.0-36.0) g/dL RDW Std Deviation 45.9 (36.4-46.3) fL RDW Coeff of Lashanda 13.3 (11.5-14.5) % Plt Count 256 (130-400) K/uL MPV 10.3 (9.4-12.4) fL Immature Gran % (Auto) 0.9 % Neut % (Auto) 79.4 % Lymph % (Auto) 8.6 % [place] % (Auto) 10.6 % Eos % (Auto) 0.1 % Baso % (Auto) 0.4 % Neut # (Auto) 16.00 H (1.40-6.50) K/uL Lymph # (Auto) 1.73 (1.20-3.40) K/uL [place] # (Auto) 2.13 H (0.11-0.59) K/uL Eos # (Auto) 0.03 (0.00-0.50) K/uL Baso # (Auto) 0.09 (0.00-0.20) K/uL Immature Gran # (Auto) 0.18 (0.01-0.20) K/uL PT 11.6 (9.0-12.0) Seconds INR 1.1 (0.9-1.1) APTT 34 H (21-31) Seconds PTT Ratio 1.2 VBG pH 7.33 L (7.36-7.41) VBG pCO2 47 (38-50) mmHg VBG pO2 61 mmHg VBG HCO3 25 mmol/L VBG O2 Saturation 90.0 % VBG Base Excess -1.5 mEq/L Sodium 137 (136-145) mmol/L Potassium 4.1 (3.5-5.1) mmol/L Chloride 101 (98-107) mmol/L Carbon Dioxide 29 (21-32) mmol/L Anion Gap 7 (3-11) BUN 13 (6-23) mg/dl Creatinine 1.10 (0.6-1.4) mg/dl Est Cr Clr Drug Dosing 64.3 ml/min Est GFR ( Amer) 82.4 ml/min Est GFR (Non-Af Amer) 71.1 ml/min BUN/Creatinine Ratio 11.8 (10-20) Glucose 123 H (70-99(Fasting)) mg/dl Lactate 1.7 (0.4-2.0) mmol/L Calcium 9.0 (8.6-10.3) mg/dl Magnesium 2.0 (1.7-2.4) mg/dl Total Bilirubin 0.6 (0.2-1.0) mg/dl Direct Bilirubin 0.2 (0-0.2) mg/dl AST 7 L (13-39) U/L ALT 7 (7-52) U/L Alkaline Phosphatase 75 (34-104) U/L Troponin I High Sens 7.5 (0-20) pg/ml Total Protein 7.6 (6.0-8.3) gm/dl Albumin 4.3 (3.4-5.0) gm/dl Procalcitonin 0.33 (0-0.5) ng/ml Adenovirus (PCR) Not Detected (NotDetected) B. pertussis DNA (PCR) Not Detected (NotDetected) B.parapertussis DNA PCR Not Detected (NotDetected) C. pneumoniae DNA (PCR) Not Detected (NotDetected) Coronavirus OC43 (PCR) Not Detected (NotDetected) Coronavirus HKU1 (PCR) Not Detected (NotDetected) Coronavirus 229E (PCR) Not Detected (NotDetected) SARS-CoV-2 (PCR) Not Detected (NotDetected) Coronavirus NL63 (PCR) Not Detected (NotDetected) Human Metapneumovir PCR Not Detected (NotDetected) Influenza Type A (PCR) Not Detected (NotDetected) Influenza Type B (PCR) Not Detected (NotDetected) M. pneumoniae (PCR) Not Detected (NotDetected) Parainfluenza 1 (PCR) Not Detected (NotDetected) Parainfluenza 2 (PCR) Not Detected (NotDetected) Parainfluenza 3 (PCR) Not Detected (NotDetected) Parainfluenza 4 (PCR) Not Detected (NotDetected) RSV (PCR) Not Detected (NotDetected) Entero/Rhino (PCR) Not Detected (NotDetected) Administered Medications Discontinued Medications Albuterol (Albut/Ipratrop 3mg/0.5mg Neb 3 Ml Vial) 3 ml NEB NOW STA; Protocol Stop: 05/13/23 11:09 Last Admin: 05/13/23 11:34 Dose: 3 ml Documented By: ROSE MARY Dexamethasone Sodium Phosphate (DexamethasonePf 10 Mg/Ml Vial) 10 mg IV NOW ONE Stop: 05/13/23 11:09 Last Admin: 05/13/23 11:32 Dose: 10 mg Documented By: ROSE MARY Sodium Chloride (Nss) 1,000 mls @ 999 mls/hr IV .Q1H1M ONE Stop: 05/13/23 13:29 Last Admin: 05/13/23 12:46 Dose: 999 mls/hr Documented By: ROSE MARY Ceftriaxone Sodium (Rocephin) 2,000 mg in 50 mls @ 100 mls/hr IV NOW STA Stop: 05/13/23 13:15 Last Admin: 05/13/23 13:18 Dose: 100 mls/hr Documented By: ROSE MARY Sodium Chloride (Nss) 1,000 mls @ 999 mls/hr IV .Q1H1M ONE Stop: 05/13/23 13:46 Last Admin: 05/13/23 13:16 Dose: 999 mls/hr Documented By: ROSE MARY Menthol (Cough Drop (Sugar Free) Kay 24 Kay/1 Box) 1 kay BUCCAL NOW STA Stop: 05/13/23 12:30 Last Admin: 05/13/23 12:46 Dose: 1 kay Documented By: ROSE MARY Imaging Data Attestation: I personally reviewed and interpreted this imaging study as follows: My Impression: 1 view chest x-ray was obtained in the emergency department. My interpretation is bilateral infiltrative process, final report below Radiologist's Impression: Chest X-Ray 05/13/23 11:08 XR chest 1V portable HISTORY: 63 years-old Male Sepsis acute cough with fever and sepsis COMPARISON: Chest radiograph 01/02/2023, chest CT 02/09/2022. TECHNIQUE: AP view of the chest FINDINGS: Cardiomediastinal and hilar silhouettes are within normal limits. Emphysema with chronic reticular nodular densities, mildly progressed. Atherosclerosis of the aorta. There is no pneumothorax, pleural effusion or overt pulmonary edema. IMPRESSION: 1. Chronic reticulonodular opacities are again noted compatible with an infectious or inflammatory pneumonitis/bronchiolitis and have mildly worsened from the most recent 01/02/2023 study. 2. Emphysema. ACT 112: Negative or not required by law. The above report was generated using voice recognition software. It may contain grammatical, syntax or spelling errors. Electronically signed by: Pedro Luis Mahmood M.D. 05/13/2023 12:22 PM Discharge Plan Visit Data Chief Complaint: Shortness of Breath/Dyspnea Stated Complaint: SOB ED Provider: Aj García Discharge Problem: COPD exacerbation, Pneumonia Patient Disposition: Being Evaluated by Hospitalist Forms Stand Alone Forms: [facility] Prescriptions Prescriptions: No Action aspirin 81 mg Tablet,Delayed Release (Dr/Ec) 81 mg PO DAILY metoprolol succinate 25 mg tablet extended release 24 hr 12.5 mg PO DAILY rosuvastatin 20 mg tablet 20 mg PO DAILY Trelegy Ellipta 100-62.5-25 mcg blister with device 1 inh INHALATION DAILY montelukast 10 mg Tablet 10 mg PO HS Qty: 30 0RF Men's Daily Formula 400-20-300 mcg Tablet 1 tab PO DAILY levalbuterol HCl 1.25 mg/3 mL solution for nebulization 1.25 mg INHALATION Q8H PRN (Reason: Shortness Of Breath Or Wheezing) Referrals Referrals: Edelmira Cavanaugh MD [Primary Care Provider] - Discharge Problem: Pneumonia Qualifiers: Pneumonia type: due to unspecified organism Laterality: bilateral Lung location: unspecified part of lung Qualified Code(s): J18.9 - Pneumonia, unspecified organism
[2023-05-13] MEDS: dexAMETHasone**PF** 10 MG/ML VIAL IV ONE (11:32)
[2023-05-13] MEDS: ALBUT/IPRATROP 3MG/0.5MG NEB 3 ML VIAL NEB STA (11:34)
[2023-05-13 11:56] LABS: Basophils # (auto) 0.09 K/uL (0.00-0.20); Basophils % (auto) 0.4 %; Eosinophils # (auto) 0.03 K/uL (0.00-0.50); Eosinophils % (auto) 0.1 %; Hematocrit (blood only) 40.6 % (42.0-52.0); Hemoglobin 12.8 g/dl (14.0-18.0); Immature Granulocytes # (auto) 0.18 K/uL (0.01-0.20); Immature Granulocytes % (auto) 0.9 %; Lymphocytes # (auto) 1.73 K/uL (1.20-3.40); Lymphocytes % (auto) 8.6 %; Mean Corpuscular Hemoglobin 29.7 pg (25.0-34.0); Mean Corpuscular Hgb Conc 31.5 g/dL (32.0-36.0); Mean Corpuscular Volume 94.2 fL (80.0-100.0); Mean Platelet Volume 10.3 fL (9.4-12.4); Monocytes # (auto) 2.13 K/uL (0.11-0.59); Monocytes % (auto) 10.6 %; Neutrophils % (auto) 79.4 %; Platelet Count 256 K/uL (130-400); RDW Coefficient of Variation 13.3 % (11.5-14.5); RDW Standard Deviation 45.9 fL (36.4-46.3); Red Blood Count 4.31 M/uL (4.70-6.10); White Blood Count 20.16 K/ul (4.8-10.8)
[2023-05-13 12:08] LABS: Albumin Level 4.3 gm/dl (3.4-5.0); BUN Creatinine Ratio 11.8 (10-20); Bilirubin Direct 0.2 mg/dl (0-0.2); Bilirubin,Total 0.6 mg/dl (0.2-1.0); Creatinine Clr Calc Pharmacy 64.3 ml/min; Est GFR (African American) 82.4 ml/min; Est GFR (Non-African American) 71.1 ml/min; Potassium 4.1 mmol/L (3.5-5.1); Total Protein 7.6 gm/dl (6.0-8.3)
[2023-05-13 12:14] LABS: Base Excess VBG -1.5 mEq/L; HCO3 VBG 25 mmol/L; PCO2 VBG 47 mmHg (38-50); PO2 VBG 61 mmHg; pH VBG 7.33 (7.36-7.41)
[2023-05-13 12:15] LABS: Troponin I High Sensitivity 7.5 pg/ml (0-20)
--- NOTE | 2023-05-13 12:23 | XRay Report ---
XR chest 1V portable HISTORY: 63 years-old Male Sepsis acute cough with fever and sepsis COMPARISON: Chest radiograph 01/02/2023, chest CT 02/09/2022. TECHNIQUE: AP view of the chest FINDINGS: Cardiomediastinal and hilar silhouettes are within normal limits. Emphysema with chronic reticular no dular densities, mildly progressed. Atherosclerosis of the aorta. There is no pneumothorax, pleural e ffusion or overt pulmonary edema. IMPRESSION: 1. Chronic reticulonodular opacities are again noted compatible with an infectious or inflammatory pn eumonitis/bronchiolitis and have mildly worsened from the most recent 01/02/2023 study. 2. Emphysema. ACT 112: Negative or not required by law. The above report was generated using voice recognition software. It may contain grammatical, syntax o r spelling errors. Electronically signed by: Pedro Luis Mahmood M.D. 05/13/2023 12:22 PM
[2023-05-13 12:29] LABS: INR 1.1 (0.9-1.1); Partial Thromboplastin Ratio 1.2; Partial Thromboplastin Time 34 Seconds (21-31); Prothrombin Time 11.6 Seconds (9.0-12.0)
[2023-05-13 12:41] LABS: Adenovirus PCR Not Detected (NotDetected); Bordetella parapertussis PCR Not Detected (NotDetected); Bordetella pertussis PCR Not Detected (NotDetected); Chlamydia pneumoniae PCR Not Detected (NotDetected); Coronavirus 229E PCR Not Detected (NotDetected); Coronavirus CoV-2 (COVID19)PCR Not Detected (NotDetected); Coronavirus HKU1 PCR Not Detected (NotDetected); Coronavirus NL63 PCR Not Detected (NotDetected); Coronavirus OC43PCR Not Detected (NotDetected); Human Metapneumovirus PCR Not Detected (NotDetected); Influenza A PCR Not Detected (NotDetected); Influenza B PCR Not Detected (NotDetected); Mycoplasma pneumoniae PCR Not Detected (NotDetected); Parainfluenza Virus 1 PCR Not Detected (NotDetected); Parainfluenza Virus 2 PCR Not Detected (NotDetected); Parainfluenza Virus 3 PCR Not Detected (NotDetected); Parainfluenza Virus 4 PCR Not Detected (NotDetected); Respiratory Syncytial VirusPCR Not Detected (NotDetected); Rhinovirus/Enterovirus PCR Not Detected (NotDetected)
[2023-05-13] MEDS: SODIUM CHLORIDE 0.9% 1,000 ML IV ONE ×2 (12:46→13:16)
[2023-05-13] MEDS: COUGH DROP (SUGAR FREE) LOZ 24 LOZ/1 BOX BUCCAL STA (12:46)
[2023-05-13] MEDS: cefTRIAXone SODIUM 2,000 MG/50 ML BAG IV STA (13:18)
--- NOTE | 2023-05-13 14:13 | History & Physical Report ---
Date of Service May 13, 2023 Assessment & Plan (1) Acute on chronic hypoxic respiratory failure: (2) COPD exacerbation: Plan: Patient is 63-year-old male with PMH COPD, chronic hypoxic respiratory failure on 2 L nasal cannula, nocturnal hypoxia, HLD, history of lung nodules presented to ER with complaint of rhinorrhea, sore throat, productive cough, SOB started yesterday. In ER patient afebrile, P: 130, R: 28, BP 119/88, 94% on 2 L. WBC: 20, procalcitonin: 0.3, lactate WNL, troponin WNL. Negative BioFire respiratory panel. EKG appear sinus tachycardia CXR: Chronic reticulonodular opacities are again noted and have mildly worsened from the most recent 01/02/2023 study, Emphysema per radiology read. In ER given DuoNeb. Patient reassessed and 99% on 2 L via nasal cannula, R: 24, P: 118. Patient states feels little less short of breath. In ER given Rocephin 2 g, 2 L NSS, dexamethasone 10 mg IV Continue supplemental oxygen with goal 89-92% oxygen saturation Scheduled DuoNebs Solu-Medrol 40 mg every 8 hours Rocephin, doxycycline Mucinex Incentive spirometry, flutter valve Continue home inhalers and Singulair CBC, BMP in a.m. Received albuterol neb by EMS and in ER. Tachycardia improving during ER course repeat EKG pending If no improvement or significant worsening consider pulmonology consult Follows with [facility] pulmonology outpatient (3) Hyperlipemia: Plan: Chronic stable Continue rosuvastatin (4) Lung nodule: Plan: History lung nodules. Is being followed up outpatient DVT Prophylaxis Lovenox SQ Full Code as per discussion with pt Follows with Dr Cavanaugh for routine care Pt was seen and care coordinated with Dr Appiah. See addendum I spent a total of 75 minutes reviewing notes, outpatient records, labs, medication, coordinating, documenting and providing care for this patient excluding time spent in the performance of separately billed services. History of Present Illness Chief Complaint: SOB Primary Care Provider: Edelmira Cavanaugh MD Patient is 63-year-old male with PMH COPD, chronic hypoxic respiratory failure on 2 L nasal cannula, nocturnal hypoxia, HLD, history of lung nodules presented to ER with complaint of shortness of breath started yesterday. History obtained from patient as well as outpatient and inpatient chart review. States yesterday started with rhinorrhea, sore throat. States he was feeling lightheaded yesterday. States has chronic cough usually productive clear/white. States yesterday started having yellow sputum production. Shortness of breath started yesterday. Normally does not use Xopenex nebs however last night used 3 times during the night for shortness of breath without much relief. States had tactile fevers, did not take temperature at home. Reports eating and drinking normally. States did not have morning meds today. sick with URI symptoms last week and tested positive for RSV. Reports EMS gave nebulizer treatment and route with some relief for shortness of breath. Denies diaphoresis, N/V/D/C, DAN, dizziness, vision changes, neck pain, CP, orthopnea, palpitations, hemoptysis, choking, otalgia, abdominal pain, paresthesias, extremity weakness, extremity edema, rashes, urinary symptoms. Allergies Allergy/AdvReac Type Severity Reaction Status Date / Time No Known Allergies Allergy Verified 05/13/23 13:23 Home Medications Medication Instructions Recorded Confirmed Type aspirin 81 mg tablet,delayed 81 mg PO DAILY 01/02/23 05/13/23 History release fluticasone fur. 100 mcg-umeclid 1 inh inhalation DAILY 01/02/23 05/13/23 History 62.5 mcg-vilant 25 mcg inhalat.powder (Trelegy Ellipta) metoprolol succinate 25 mg 12.5 mg PO HS 01/02/23 05/13/23 History tablet,extended release 24 hr rosuvastatin 20 mg tablet 20 mg PO DAILY 01/02/23 05/13/23 History montelukast 10 mg tablet 10 mg PO HS #30 tabs 01/05/23 05/13/23 Rx levalbuterol HCl 1.25 mg/3 mL 1.25 mg inhalation Q8H PRN 05/13/23 05/13/23 History solution for nebulization Shortness Of Breath Or Wheezing rclzyasl-vhzeofks-kzynb acid 400 1 tab PO DAILY 05/13/23 05/13/23 History mcg-vit K 20 mcg-lycop 300 mcg tablet (Men's Daily Formula) Past Med/Surg History Medical History (Updated 05/13/23 @ 14:54 by Pili Barrientos PA-C) Nocturnal hypoxia Lung nodule Colon adenoma Hyperlipidemia On home oxygen therapy 2L N/C hs and prn COPD (chronic obstructive pulmonary disease) inhaler/nebulizer/oxygen Surgical History History of arthroscopy of right shoulder History of colonoscopy with polypectomy History of mandibular surgery History of tooth extraction all teeth History of bronchoscopy H/O rotator cuff surgery Family History Mother Lung cancer Other No family history of adverse response to anesthesia Social History Smoking Status: Former smoker Tobacco Type: Cigarettes Cigarettes Per Day: 40; Second Hand Exposure: Yes (parents smoked/ smokes); Do You Dip or Chew Tobacco: No; Hx Alcohol Use: No Hx Substance Use: No Preferred Language: Bel[place]an Communication Ability: Effective Swing Driver Required: No Beliefs That Will Affect Care: None marital status: Current Living Situation: Spouse current occupational status: unemployed and disabled Feels Safe at Home: Yes Assistive Devices: Oxygen - Continuous Review of Systems Review of Systems: All systems reviewed & are unremarkable except as noted in HPI & below Physical Exam Physical Exam: General: +mild distress, WDWN Head: normocephalic, atraumatic Eyes: conjunctiva non-injected, anicteric ENT: normal inspection external ears, nose, mucous membranes moist Neck: supple, trachea midline Lungs: 98% on 2L via nasal cannula, respiratory rate: 24, +dyspnea with speaking in sentences, +diminished breath sounds throughout with faint wheeze CV: tachycardia, rate 118, regular rhythm, no pretibial edema Abd: normal BS, soft, non-tender Ext: no cyanosis, no calf tenderness Neuro: A&O x 3, no focal deficits noted, normal affect Skin: warm, dry Results & Data Results & Data Vital Signs (Past 12 Hours) Vital Signs Temp Pulse Pulse Resp BP BP Pulse Ox 05/13/23 13:01 118 H 24 138/84 100 05/13/23 12:15 130 H 05/13/23 11:46 94 05/13/23 11:36 125 H 26 H 94 05/13/23 11:36 37 C 130 H 28 H 119/88 94 O2 Del Method O2 Flow Rate 05/13/23 13:01 Nasal Cannula 2 05/13/23 12:15 05/13/23 11:46 Nasal Cannula 2 05/13/23 11:36 Nasal Cannula 2 05/13/23 11:36 Nasal Cannula 2 Laboratory Results Short CBC 05/13/23 Range/Units 11:29 WBC 20.16 H (4.8-10.8) K/ul Hgb 12.8 L (14.0-18.0) g/dl Hct 40.6 L (42.0-52.0) % Plt Count 256 (130-400) K/uL BMP 05/13/23 11:29 Sodium 137 Potassium 4.1 Chloride 101 Carbon Dioxide 29 BUN 13 Creatinine 1.10 Glucose 123 H Calcium 9.0 Liver Function 05/13/23 Range/Units 11:29 Total Bilirubin 0.6 (0.2-1.0) mg/dl Direct Bilirubin 0.2 (0-0.2) mg/dl AST 7 L (13-39) U/L ALT 7 (7-52) U/L Alkaline Phosphatase 75 (34-104) U/L Albumin 4.3 (3.4-5.0) gm/dl Diagnostic Findings Chest X-Ray 05/13/23 11:08 XR chest 1V portable HISTORY: 63 years-old Male Sepsis acute cough with fever and sepsis COMPARISON: Chest radiograph 01/02/2023, chest CT 02/09/2022. TECHNIQUE: AP view of the chest FINDINGS: Cardiomediastinal and hilar silhouettes are within normal limits. Emphysema with chronic reticular nodular densities, mildly progressed. Atherosclerosis of the aorta. There is no pneumothorax, pleural effusion or overt pulmonary edema. IMPRESSION: 1. Chronic reticulonodular opacities are again noted compatible with an infectious or inflammatory pneumonitis/bronchiolitis and have mildly worsened from the most recent 01/02/2023 study. 2. Emphysema. ACT 112: Negative or not required by law. The above report was generated using voice recognition software. It may contain grammatical, syntax or spelling errors. Electronically signed by: Pedro Luis Mahmood M.D. 05/13/2023 12:22 PM Code Status & VTE Plan VTE Prophylaxis Plan VTE Prophylaxis will be ordered: Yes Supervising Physician Co-Signing Physician Notes I have seen and examined the patient and have discussed the case with the provider above. I have reviewed the advanced practitioner's documentation, and I agree with, and take responsibility for that plan of care. The patient is a 63-year-old man with chronic hypoxic respiratory failure presenting with acute shortness of breath for the last 3 days associated with a productive cough of yellow sputum. He reports fever but did not take his temperature. Other hi story as noted above. On exam he is in no acute distress oxygenating well on his baseline 2 L/min of oxygen supplementation. He is slightly tachycardic with a heart rate in the low 100s. He denies any discomfort and feels his breathing is starting to improve with nebulizer treatment and other therapies given in the ER. On exam he has no acute distress and no increased work of breathing. He is recently just finished a nebulizer treatment. He has diminished breath sounds throughout with some faint wheezing anteriorly. Cardiac exam as noted above. Other physical exam findings as noted above. Workup in the ER including CBC reveals a leukocytosis of 20,000 with a left shift. CHEM panel normal, bio fire respiratory panel was negative. Agree with plan of steroids, nebulized bronchodilators, antibiotics as noted above. Continue to de-escalate therapy as patient improves. I spent a total of 30minutes coordinating, documenting, and providing care for this patient excluding time spent in the performance of separately billed services. DO Td
--- NOTE | 2023-05-13 15:06 | Electrocardiogram Report ---
Test Reason : Blood Pressure : / mmHG Vent. Rate : 137 BPM Atrial Rate : 000 BPM P-R Int : 000 ms QRS Dur : 070 ms QT Int : 374 ms P-R-T Axes : 000 049 081 degrees QTc Int : 564 ms Supraventricular tachycardia Low voltage QRS Nonspecific T wave abnormality Anterior leads Abnormal ECG When compared with ECG of 02-JAN-2023 22:51, HR has increased by 40 bpm Otherwise no significant change Confirmed by Medardo Raphael ([id number]) on 05/13/2023 3:06:27 PM Referred By: REFERRED SELF Confirmed By:Medardo Raphael
[2023-05-13] MEDS: LEVALBUTEROL 1.25 MG/3 ML NEB NEB STA (15:18)
[2023-05-13] MEDS ORDERED: ACETAMINOPHEN 325 MG TAB PO PRN (16:45)
[2023-05-13] MEDS ORDERED: POLYETHYLENE (MIRALAX) 17 GM PACK PO PRN (16:45)
[2023-05-13] MEDS ORDERED: ONDANSETRON INJ 2 MG/ML 2 ML VIAL IV PRN (16:45)
[2023-05-13] MEDS: methylPREDNISolone 40 MG in SYRINGE 0 ML IV SCH (17:51)
[2023-05-13] MEDS: ALBUT/IPRATROP 3MG/0.5MG NEB 3 ML VIAL NEB SCH (17:51)
[2023-05-13] MEDS: ENOXAPARIN INJ 40 MG/0.4 ML SYR SQ SCH (17:52)
[2023-05-13] MEDS: DOXYCYCLINE HYCLATE 100 MG in DEXTROSE 5% MINI-B 100 ML IV SCH (17:52)
[2023-05-13] MEDS: SODIUM CHLORIDE 0.9% 1,000 ML IV SCH (17:52)
--- OUTSIDE RECORDS SUMMARY | 2023-05-13 18:44 | External Medical Summary | Summary of Care ---
Author Name Unknown Organization [facility] Address [address] [place] [address] Phone [phone] Care Team Providers Care Latin Dancer Name Role Phone Edelmira Cavanaugh MD Primary Care Provider [phone] Reason for Visit * Reason Onset Date Comments Advice 01/30/2023 Pt scheduled for covid vaccine 02/23/23 and would like to have RSV as well. Please advice Encounter Details Date Type Department Care Team (Late st Contact Info) Description 01/30/2023 Telephone General Internal Medicine [facility] [place] [address] [facility] [place] [id number] Edelmira Cavanaugh MD [address] [place] [address] Advice (Pt scheduled for covid vaccine ... Allergies Active Allergy Reactions Criticality Noted Date Comments Levofloxacin Other (Please comment) Low 10/18/2021 Rash documented as of this encounter (statuses as of 05/01/2023) Medications Medication Sig Dispensed Refills Start Date End Date Status aspirin enteric coated 81 MG TBEC Take 1 Tab by mouth daily. 100 Tab 3 5 Active Multiple Vitamin (ONE-A-DAY MENS) Tablet Take 1 Tablet by mouth in the morning. 0 9 Active Acetaminophen 500 MG Oral Tablet (Tylenol) Take 1-2 Tablets by mouth every 8 hours as needed for Fever >38C(100.5F), Pain, Mild or Pain, Moderate. 0 Active oxygen IN GAS 2 LPM via NC continuously 1 Each 0 3 Active guaiFENesin ER 600 MG Oral Tablet Extended Release 12 Hour Take 1 Tablet by mouth as needed. 0 3 Active Rosuvastatin Calcium 20 MG Oral Tablet (Crestor)Indication s:Dyslipidemia, goal LDL below 100 TAKE 1 TABLET BY MOUTH IN THE MORNING 90 Tablet 3 3 Active Zoster Vac Recomb Adjuvanted 50 MCG/0.5ML Intramuscular Suspension Reconstituted (Shingrix)Indicatio ns:Need for vaccination for zoster Inject 0.5 mL into a large muscle now and repeat dose in 60 to 180 days 1 Each 1 3 Active Terbinafine HCl 1 % External Cream (LamISIL AT ATHLETE'S FOOT)Indications:Ti ernesto pedis of both feet Apply topically to affected area 2 times a day. Apply to both feet 42 g 3 3 Active Jublia 10 % External Solution (Efinaconazole)Lola cations:Dermatophyt osis of nail Apply topically to affected area 2 times a day. Apply to toe nails 8 mL 5 3 Active Albuterol Sulfate HFA 108 (90 Base) MCG/ACT Inhalation Aerosol SolutionIndications :COPD, group D, by GOLD 2017 classification ([facility]) Inhale 2 Puffs by mouth every 4 hours as needed for Cough, Shortness of Breath or Wheezing. 54 g 3 3 Active Cyclobenzaprine HCl 10 MG Oral Tablet (Flexeril) Take 1 Tablet by mouth every 6 hours as needed for Muscle spasms. 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 15 g 12 3 Active Levalbuterol HCl 1.25 MG/3ML Inhalation Nebulization SolutionIndications :COPD, group D, by GOLD 2017 classification ([facility]),COPD exacerbation ([facility]) Inhale 3 mL via nebulizer every 8 hours as needed for Wheezing. 120 mL 5 3 Active Fluticasone-Umeclid in-Vilant 100-62.5-25 MCG/ACT Aerosol Powder Breath Activated (Trelegy Ellipta) Inhale 1 Puff by mouth in the morning. Please rinse mouth and gargle with water after use.. 180 Blister Dosing Unit 3 3 Active Metoprolol Succinate ER 25 MG Oral Tablet Extended Release 24 Hour (toPROL XL) Take 0.5 Tablets by mouth at bedtime. 0 3 03/18/20 23 Discontinue d(Refill) Arexvy 120 MCG/0.5ML Intramuscular Suspension Reconstituted (RSVPreF3 Vac Recomb Adjuvanted) Inject 0.5 mL into a large muscle once for 1 dose. 1 Each 0 3 02/02/20 23 Hospital, Clinic, or Other Facility Administered Medication Ordered Dose Route Frequency Start Date End Date Status Albuterol Sulfate (Proventil) (5 MG/ML) 0.5% *conc* inhalation solution 2.5 mgIndications:COPD, group D, by GOLD 2017 classification ([facility]),History of 2019 novel coronavirus disease (COVID-19) 2.5 mg NEBULIZER PRN 07/08/2022 07/08/2023 Active Albuterol Sulfate (Proventil) (2.5 MG/3ML) 0.083% inhalation solution 2.5 mgIndications:COPD, group D, by GOLD 2017 classification ([facility]),History of 2019 novel coronavirus disease (COVID-19) 2.5 mg NEBULIZER PRN 07/08/2022 07/08/2023 Active documented as of this encounter (statuses as of 05/01/2023) Active Problems Problem Noted Date Diagnosed Date Prediabetes 03/16/2023 Overview: Per Prediabetes protocol Dependence on continuous supplemental oxygen Nocturnal hypoxemia 10/18/2021 Overview: Wearing 2 LPM via NC overnight Multiple lung nodules 03/12/2021 Migraine without aura and wi thout status migrainosus, not intractable 11/08/2019 Centrilobular emphysema 08/11/[address] of the chest 08/11/2018 COPD, group D, by GOLD 2017 classification 02/10 Bronchiectasis without complication 02/10/2018 RVH (right ventricular hypertrophy) 08/18/2017 Mild obstructive sleep apnea-hypopnea syndrome 0 08/01/2016 Dyslipidemia, goal LDL below 100 09/13/2013 History of tobacco use 08/10/2013 documented as of this encounter (statuses as of 05/01/2023) Resolved Problems Problem Noted Date Diagnosed Date Resolved Date Chronic hypoxemic respiratory failure 08/01/2016 08/18/2018 COPD, severe 07/08/2013 02/10/2018 documented as of this encounter (statuses as of 05/01/2023) Immunizations Name Administration Dates Next Due COVID-19 mRNA, LNP-s, No Pre serve, 2-Dose Series (Pfizer) 04/23/2021,08/25/2020,08/04/2020 COVID-19, LNP-s, No Preserve , Eddy-sucrose, Ages 12+ (Pfizer) 11/04/2021 Pneumococcal Conjugate Vacci ne, 20-valent ([id number]) 12/12/2021 Pneumococcal Polysaccharide PPV23 (Pneumovax) 08/10/2013,03/21/2011(Deferred: Patient Refused) Season Influenza, Quad, PF, Adjuvanted, 65+ Yrs, IM (FLUAD) 03/06/2020 Seasonal Influenza, PF, 6 M & above, IM , (FluLaval or Fluzone) 12/12/2021,02/18/2019,03/10/2018,01/22 Seasonal Influenza, QUAD, wi th Preserv, 6 mons & Above, 0.5 mL, IM 01/04/2023 Seasonal Influenza, Quadriva lent Hd, 65+ Yrs 02/08/2021 Seasonal Influenza, Quadriva lent, No Preserve, IM 02/01/2016 Seasonal Influenza, Split, I IV3, With Preserve, Inj 12/20/2014,12/14/2013,03/21/2011(Defer red: Patient Refused) TDAP (age 10 and older)(Boostrix) 07/08/2013 Zoster Vaccine Recombinant (Shingrix) 12/02/2022 ,11/10/2019 documented as of this encounter Social History Tobacco Use Types Packs/Day Years Used Date Smoking Tobacco: Former Cigarettes 1 44 Q uit: 06/28/2021 Smokeless Tobacco: Never Alcohol Use Standard Drinks/Week Comments No 0 (1 standard drink = 0.6 oz pur e alcohol) PHQ-2 Answer Date Recorded PHQ Adult Total Score 0 05/01/2023 Hunger Vital Sign Answer Date Recorded Within the past 12 months, y ou worried that your food would run out before you got the money to buy more. Never true 05/01/19 24 Within the past 12 months, t he food you bought just didn't last and you didn't have money to get more. Never true 05/01/2023 Sex and Gender Information Value Date Recorded Sex Assigned at Male 07/26/2018 11:36 AM EDT Gender Identity Male 07/26/2018 11:36 AM EDT Sexual Orientation Straight 07/26/2018 11 :36 AM EDT Job Start Date Occupation Industry Not on file Not on file Not on file documented as of this encounter Miscellaneous Notes * Telephone Encounter - Astrid Brewster LPN - 02/02/2023 9:40 AM EDT Called. Left detailed message on answering machine. Given the triage line if any questions. * Telephone Encounter - Edelmira Cavanaugh MD - 01/30/2023 8:09 PM EDT I would get both at the same time. Not sure if needs script - signed in case it's needed * Telephone Encounter - Yoana Lomas OSA - 01/30/2023 11:59 AM EDT Pt scheduled for covid vaccine 02/23/23 and would like to have RSV as well. Please advice documented in this encounter Plan of Treatment Upcoming Encounters Date Type Department Care Team (Late st Contact Info) Description 06/08/2023 9:10 AM EST Laboratory Laboratory, [facility] [address] [facility] [place] [phone] [facility] [address] [facility] [place] [id number] 07/15/2023 12:00 PM EDT Office Visit General Internal Medicine [place] [facility] [address] [place] [address] Edelmira Cavanaugh MD [address] [facility] [place] [address] Scheduled Procedures Name Priority Associated Diagnoses Date/Ti me COLONOSCOPY FLEXIBLE PROXIMAL DIAGNOSTIC Recall History of colon polyps Health Maintenance Due Date Last Done Comments *ADVANCE DIRECTIVE NOT ON FILE 09/18/2018 DTaP,Tdap,and Td Vaccines (2 - Td or Tdap) 07/09/2023 07/08/2013 O2 ASSESSMENT COMPLETED IN PAST YEAR FOR COPD 01/21/2024 01/20/2023 HbA1c 03/11/2024 03/11/2023, 01/08/2023 Depression Screening 05/01/2024 05/01/2023 COLONOSCOPY-EVERY 5 YRS AGES 18-100 01/03/2025 01/04/2020, 09/01/2013, 09/01/2013 Lipid Panel 01/09/2028 01/08/2023, 06/04, 06/07/2021, Additional history exists LUNG CANCER SCREENING - USE SMARTSET 52081 Completed 02/25/2021, 02/23/2020, 02/16/2019, Additional history exists Alpha-1 Antitrypsin Completed 11/04/2021 Pneumococcal Vaccine: Pediatrics (0 to 5 Years) and At-Risk Patients (6 to 64 Years) Completed 12/12/2021, 08/10/2013 Zoster Vaccines Completed 12/02/2022, 11/10/2019 Influenza Vaccine (FLU shot) Completed 04/2022, 12/12/2021, 02/08/2021, Additional history exists COVID-19 Vaccine Completed 02/23/2023, 04/2021, 04/23/2021, Additional history exists GARDASIL-HPV IMMUNIZATION SERIES Aged Out No longer eligible based on patient's age to complete this topic Hepatitis B Aged Out No longer eligi ble based on patient's age to complete this topic MENINGOCOCCAL (MENACTRA/MENVEO) Aged Out No longer eligible based on patient's age to complete this topic documented as of this encounter Medical Devices Not on filedocumented as of this encounter Advance Directives Healthcare Agents on File Name Relationship Healthcare Agent Relationship Communication Jeannie Tad Other - (no specific identity) Health Care Intelligence Agent (appointed verbally by patient or by statute hierarchy) Care Teams Latin Dancer Relationship Specialty Start Date End Date Edelmira Cavanaugh MD [address] [place] [address] PCP - General Internal Medicine 05/09/21 documented as of this encounter
--- OUTSIDE RECORDS SUMMARY | 2023-05-13 18:45 | External Medical Summary | Summary of Care ---
Author Name Unknown Organization [facility] Address [address] [place] [address] Phone [phone] Care Team Providers Care Mechanical Systems Designer Name Role Phone Edelmira Cavanaugh MD Primary Care Provider [phone] Reason for Visit * Reason Onset Date Comments FYI 02/09/2023 Encounter Details Date Type Department Care Team (Late st Contact Info) Description 02/09/2023 Detector Car Operator Telephone Family Practice [facility] [address] [place] [address] Fiona Armstrong, RN [address] [place] [address] FYI Allergies Active Allergy Reactions Criticality Noted Date Comments Levofloxacin Other (Please comment) Low 10/18/2021 Rash documented as of this encounter (statuses as of 02/11/2023) Medications Medication Sig Dispensed Refills Start Date End Date Status aspirin enteric coated 81 MG TBEC Take 1 Tab by mouth daily. 100 Tab 3 09/06/2014 Active Multiple Vitamin (ONE-A-DAY MENS) Tablet Take 1 Tablet by mouth in the morning. 0 08/18/2018 Active Acetaminophen 500 MG Oral Tablet (Tylenol) Take 1-2 Tablets by mouth every 8 hours as needed for Fever >38C(100.5F), Pain, Mild or Pain, Moderate. 0 Active oxygen IN GAS 2 LPM via NC continuously 1 Each 0 04/14/2022 Active guaiFENesin ER 600 MG Oral Tablet Extended Release 12 Hour Take 1 Tablet by mouth as needed. 0 06/11/2022 Active Metoprolol Succinate ER 25 MG Oral Tablet Extended Release 24 Hour (toPROL XL) Take 0.5 Tablets by mouth at bedtime. 0 06/11/2022 Active Rosuvastatin Calcium 20 MG Oral Tablet (Crestor)Indications :Dyslipidemia, goal LDL below 100 TAKE 1 TABLET BY MOUTH IN THE MORNING 90 Tablet 3 07/23/2022 Active Zoster Vac Recomb Adjuvanted 50 MCG/0.5ML Intramuscular Suspension Reconstituted (Shingrix)Indication s:Need for vaccination for zoster Inject 0.5 mL into a large muscle now and repeat dose in 60 to 180 days 1 Each 1 12/02/2022 Active Terbinafine HCl 1 % External Cream (LamISIL AT ATHLETE'S FOOT)Indications:Tin ea pedis of both feet Apply topically to affected area 2 times a day. Apply to both feet 42 g 3 12/02/2022 Active Jublia 10 % External Solution (Efinaconazole)Indic ations:Dermatophytos is of nail Apply topically to affected area 2 times a day. Apply to toe nails 8 mL 5 12/02/2022 Active Albuterol Sulfate HFA 108 (90 Base) MCG/ACT Inhalation Aerosol SolutionIndications: COPD, group D, by GOLD 2017 classification ([facility]) Inhale 2 Puffs by mouth every 4 hours as needed for Cough, Shortness of Breath or Wheezing. 54 g 3 12/23/2022 Active Cyclobenzaprine HCl 10 MG Oral Tablet (Flexeril) Take 1 Tablet by mouth every 6 hours as needed for Muscle spasms. 0 Active Amoxicillin-Pot Clavulanate 875-125 MG Oral Tablet 0 01/05/2023 Active Levalbuterol Tartrate 45 MCG/ACT Inhalation Aerosol (Xopenex HFA)Indications:COPD , group D, by GOLD 2017 classification ([facility]),COPD exacerbation ([facility]) Inhale 1 Puff by mouth every 4 hours as needed for Wheezing. 15 g 12 01/08/2023 Active Levalbuterol HCl 1.25 MG/3ML Inhalation Nebulization SolutionIndications: COPD, group D, by GOLD 2017 classification ([facility]),COPD exacerbation ([facility]) Inhale 3 mL via nebulizer every 8 hours as needed for Wheezing. 120 mL 5 01/08/2023 Active Fluticasone-Umeclidi n-Vilant 100-62.5-25 MCG/ACT Aerosol Powder Breath Activated (Trelegy Ellipta) Inhale 1 Puff by mouth in the morning. Please rinse mouth and gargle with water after use.. 180 Blister Dosing Unit 3 01/20/2023 Active Hospital, Clinic, or Other Facility Administered Medication Ordered Dose Route Frequency Start Date End Date Status Albuterol Sulfate (Proventil) (5 MG/ML) 0.5% *conc* inhalation solution 2.5 mgIndications:COPD, group D, by GOLD 2017 classification ([facility]),History of 2019 novel coronavirus disease (COVID-19) 2.5 mg NEBULIZER PRN 07/08/2022 07/08/2023 Active Albuterol Sulfate (Proventil) (2.5 MG/3ML) 0.083% inhalation solution 2.5 mgIndications:COPD, group D, by GOLD 2017 classification ([facility]),History of 2019 novel coronavirus disease (COVID-19) 2.5 mg NEBULIZER PRN 07/08/2022 07/08/2023 Active documented as of this encounter (statuses as of 02/11/2023) Active Problems Problem Noted Date Diagnosed Date Dependence on continuous supplemental oxygen Nocturnal hypoxemia [...] as of this encounter (statuses as of 02/11/2023) Resolved Problems Problem Noted Date Diagnosed Date Resolved Date Chronic hypoxemic respiratory failure 08/01/2016 08/18/2018 COPD, severe 07/08/2013 02/10/2018 documented as of this encounter (statuses as of 02/11/2023) Immunizations Name Administration Dates Next Due COVID-19 mRNA, LNP-s, No Pre serve, 2-Dose Series ([employer]) 04/23/2021,08/25/2020,08/04/2020 COVID-19, LNP-s, No Preserve , Eddy-sucrose, Ages 12+ (Pfizer) 11/04/2021 Pneumococcal Conjugate Vacci ne, 20-valent ([id number]) 12/12/2021 Pneumococcal Polysaccharide PPV23 (Pneumovax) 08/10/2013,03/21/2011(Deferred: Patient Refused) SEASONAL INFLUENZA, PF, 6 M & Above, IM , (FLULAVAL or FLUZONE) 12/12/2021,02/18/2019,03/10/2018,01/22 Season Influenza, Quad, PF, Adjuvanted, 65+ Yrs, IM (FLUAD) 03/06/2020 Seasonal Influenza, QUAD, wi th Preserv, 6 [...] Date Recorded PHQ Adult Total Score 0 12/02/2022 Hunger Vital Sign Answer Date Recorded Worried About Running Out of Food in the Last Ye ar Never true 11/08/2019 Ran Out of Food in the Last Year Never true 11/08/2019 Sex and Gender Information Value Date Recorded Sex Assigned at Male 07/26/2018 11:36 AM EDT Gender Identity Male 07/26/2018 11:36 AM EDT Sexual Orientation Straight 07/26/2018 11 :36 AM EDT Job Start Date Occupation Industry Not on file Not on file Not on file documented as of this encounter Miscellaneous Notes * Telephone Encounter - Fiona Armstrong RN - 02/09/2023 3:55 PM EST Please discharge the patient from [facility] Device(s)/IVR to be discontinued: IVR calls due to no longer needed. Thank you. documented in this encounter Plan of Treatment Upcoming Encounters Date Type Department Care Team (Late st Contact Info) Description 02/23/2023 10:45 AM EST Immunization [facility] Tracy Mathews [address] [place] [address] Mathews, Covid[facility]ine [facility] [address] [place] [address] Scheduled Procedures Name Priority Associated Diagnoses Date/Ti me COLONOSCOPY FLEXIBLE PROXIMAL DIAGNOSTIC Recall History of colon polyps Health Maintenance Due Date Last Done Comments *ADVANCE DIRECTIVE NOT ON FILE 09/18/2018 COVID-19 Vaccine (2022- season) 2022 11/04/2021, 04/23/2021, 08/25/2020, Additional history exists DTaP,Tdap,and Td Vaccines (2 - Td or Tdap) 07/09/2023 07/08/2013 Depression Screening 12/03/2023 12/02/2022 O2 ASSESSMENT COMPLETED IN PAST YEAR FOR COPD 01/21/2024 01/20/2023 COLONOSCOPY-EVERY 5 YRS AGES 18-100 01/03/2025 01/04/2020, 09/01/2013, 09/01/2013 Diabetes Screening 01/08/2026 01/08/2023, 1 , 06/20/2022, Additional history exists Lipid Panel 01/09/2028 01/08/2023, 06/04, 06/07/2021, Additional history exists LUNG CANCER SCREENING - USE SMARTSET 00923 Completed 02/25/2021, 02/23/2020, 02/16/2019, Additional history exists Alpha-1 Antitrypsin Completed 11/04/2021 Pneumococcal Vaccine: Pediatrics (0 to 5 Years) and At-Risk Patients (6 to 64 Years) Completed 12/12/2021, 08/10/2013 Zoster Vaccines Completed 12/02/2022, 11/10/2019 Influenza Vaccine (FLU shot) Completed 04/2022, 12/12/2021, 02/08/2021, Additional history exists GARDASIL-HPV IMMUNIZATION SERIES Aged [...] Not on filedocumented as of this encounter Visit Diagnoses Diagnosis Need for case management follow-up- Primary documented in this encounter Care Teams Mechanical Systems Designer Relationship Specialty Start Date End Date Edelmira Cavanaugh MD [address] [facility] [place] [address] PCP - General Internal Medicine 05/09/21 documented as of this encounter
--- OUTSIDE RECORDS SUMMARY | 2023-05-13 18:45 | External Medical Summary ---
Author Name Unknown Address Unknown Organization [id number]:[facility] - [address] [place] [address] Laboratory Report Ordering Provider Test Date Status ROSE MARIE 03/11/2023 12:03:19 Final Observation Date Value Abnormality Reference (Units ) Status WBC, Total 03/11/2023 12:03:19 7.61 4.00-10.8 0 (K/uL) Final RBC 03/11/2023 12:03:19 4.49 4.50-5.25 (M/uL) Final Hemoglobin 03/11/2023 12:03:19 13.5 Below low normal 14 .0-16.8 (g/dL) Final Anemia reflex testing trigge rs on a HGB < 12.0 for Females and HGB < 13.0 for Males in accordance with the WHO Anemia Guidelines
Anemia reflex testing triggers on a HGB < 12.0 for Females and HGB < 13.0 for Males in accordance with the WHO Anemia Guidelines HCT 03/11/2023 12:03:19 43.4 40.0-48.4 (%) Final MCV 03/11/2023 12:03:19 96.7 82.0-99.5 (fL) Final MCH 03/11/2023 12:03:19 30.1 27.0-34.0 (pg) Final MCHC 03/11/2023 12:03:19 31.1 32.0-36.0 (g/dL) Final RDW 03/11/2023 12:03:19 13.9 11.5-15.5 (%) Final Platelets 03/11/2023 12:03:19 311 140-400 (K /uL) Final MPV 03/11/2023 12:03:19 10.9 6.6-11.1 ( fL) Final Nucleated erythrocytes/100 leukocytes [Ratio] in Blood by Automated count 03/11/2023 12:03:19 0 <=0 (/100 WBCs) [facility] Performing Location [facility] - [address] [facility] [address]
--- OUTSIDE RECORDS SUMMARY | 2023-05-13 18:45 | External Medical Summary | Summary of Care ---
Author Name Unknown Organization [facility] Address [address] [place] [address] Phone [phone] Care Team Providers Care Hris Analyst Name Role Phone Edelmira Cavanaugh MD Primary Care Provider [phone] Reason for Visit * Reason Onset Date Comments Medication Refill 03/18/2023 Encounter Details Date Type Department Care Team (Late st Contact Info) Description 03/18/2023 Refill General Internal Medicine [facility] [address] [facility] [place] [id number] Edelmira Cavanaugh MD [address] [facility] [address] Allergies Active Allergy Reactions Criticality Noted Date Comments Levofloxacin Other (Please comment) Low 10/18/2021 Rash documented as of this encounter (statuses as of 03/18/2023) Medications Medication Sig Dispensed Refills Start Date [...] :COPD, group D, by GOLD 2017 classification ([facility]) Inhale 2 Puffs by mouth every 4 hours as needed for Cough, Shortness of Breath or Wheezing. 54 g 3 3 Active Cyclobenzaprine HCl 10 MG Oral Tablet (Flexeril) Take 1 Tablet by mouth every 6 hours as needed for Muscle spasms. 0 Active Amoxicillin-Pot Clavulanate 875-125 MG Oral Tablet 0 3 Active Levalbuterol Tartrate 45 MCG/ACT Inhalation Aerosol (Xopenex HFA)Indications:RN OBSERVATION D, group D, by GOLD 2017 classification ([facility]),COPD exacerbation ([facility]) Inhale 1 Puff by mouth every 4 hours as needed for Wheezing. 15 g 12 3 Active Levalbuterol HCl 1.25 MG/3ML Inhalation Nebulization SolutionIndications :COPD, group D, by GOLD 2017 classification ([facility]),COPD exacerbation ([facility]) Inhale 3 mL via nebulizer every 8 hours as needed for Wheezing. 120 mL 5 3 Active Fluticasone-Umeclid in-Vilant 100-62.5-25 MCG/ACT Aerosol Powder Breath Activated (Trelegy Ellipta) Inhale 1 Puff by mouth in the morning. Please rinse mouth and gargle with water after use.. 180 Blister Dosing Unit 3 3 Active Montelukast Sodium 10 MG Oral Tablet (Singulair) Take 1 Tablet by mouth at bedtime. 90 Tablet 3 3 Active Metoprolol Succinate ER 25 MG Oral Tablet Extended Release 24 Hour (toPROL XL) Take 0.5 Tablets by mouth at bedtime. 45 Tablet 3 3 Active Metoprolol Succinate ER 25 MG Oral Tablet Extended Release 24 Hour (toPROL XL) Take 0.5 Tablets by mouth at bedtime. 0 3 03/18/20 23 Discontinu ed(Refill) Hospital, Clinic, or Other Facility Administered Medication Ordered Dose Route Frequency Start Date End Date Status Albuterol Sulfate (Proventil) (5 MG/ML) 0.5% *conc* inhalation solution 2.5 mgIndications:COPD, group D, by GOLD 2017 classification ([facility]),History of 2019 novel coronavirus disease (COVID-19) 2.5 mg NEBULIZER PRN 07/08/2022 07/08/2023 Active Albuterol Sulfate (Proventil) (2.5 MG/3ML) 0.083% inhalation solution 2.5 mgIndications:COPD, group D, by GOLD 2017 classification ([facility]),History of 2019 novel coronavirus disease (COVID-19) 2.5 mg NEBULIZER PRN 07/08/2022 07/08/2023 Active documented as of this encounter (statuses as of 03/18/2023) Active Problems Problem Noted Date Diagnosed Date [...] as of this encounter (statuses as of 03/18/2023) Resolved Problems Problem Noted Date Diagnosed Date Resolved Date Chronic hypoxemic respiratory failure 08/01/2016 08/18/2018 COPD, severe 07/08/2013 02/10/2018 documented as of this encounter (statuses as of 03/18/2023) Immunizations Name Administration Dates Next Due COVID-19 mRNA, LNP-s, No Pre serve, 2-Dose Series ([employer]) 04/23/2021,08/25/2020,08/04/2020 COVID-19, LNP-s, No Preserve , Eddy-sucrose, Ages 12+ (Pfizer) 11/04/2021 COVID-19, MRNA-LNP, 23-24, P F, 30 MCG/0.3 mL, 12 YRS AND ABOVE, IM ([facility]) 02/23/2023 Pneumococcal Conjugate Vacci ne, 20-valent ([id number]) 12/12/2021 Pneumococcal Polysaccharide PPV23 (Pneumovax) 08/10/2013,03/21/2011(Deferred: Patient Refused) RSV Vac., Recomb, Adjuvant, PF,0.5 Ml (Arexvy) 02/10/2023 Season Influenza, Quad, PF, Adjuvanted, 65+ Yrs, [...] 12/02/2022 Hunger Vital Sign Answer Date Recorded Within the past 12 months, y ou worried that your food would run out before you got the money to buy more. Never true 05/06/19 23 Within the past 12 months, t he food you bought just didn't last and you didn't have money to get more. Never true 05/06/2022 Sex and Gender Information Value Date Recorded Sex Assigned at Male 07/26/2018 11:36 AM EDT Gender Identity Male 07/26/2018 11:36 AM EDT Sexual Orientation Straight 07/26/2018 11 :36 AM EDT Job Start Date Occupation Industry Not on file Not on file Not on file documented as of this encounter Miscellaneous Notes * Telephone Encounter - Edelmira Cavanaugh MD - 03/18/2023 12:42 PM ESTSigned Prescriptions: Disp Refills Metoprolol Succinate ER 25 MG Oral Tablet *45 Tab*3 Sig: Take 0.5 Tablets by mouth at bedtime. Authorizing Provider: EDELMIRA CAVANAUGH * Telephone Encounter - Latesha Borjas LPN - 03/18/2023 11:20 AM EST Pending Prescriptions: Disp Refills Metoprolol Succinate ER 25 MG Oral Tablet * Sig: Take 0.5 Tablets by mouth at bedtime. * Telephone Encounter - Susan Tong OSA - 03/18/2023 11:03 AM EST Did you pend patient's preferred pharmacy and medication before forwarding?yes Pharmacy: [facility] [address] [address] [place] Pending Prescriptions: Disp Refills Metoprolol Succinate ER 25 MG Oral Tablet* Sig: Take 0.5 Tablets by mouth at bedtime. Last Visit: 01/08/2023 (in office), Visit date not found (telemedicine) Next Visit: 07/15/2023 If no future appointments scheduled, and last appointment is greater than a year ago, please schedule patient for a follow-up appointment Last date the medication was ordered: 06/11/2022 Is this request for a controlled substance?No Urine Drug Screen:No results found for this or any previous visit. Patient Phone Numbers Labs: Lab Results Component Value Date/Time CREAT 1.0 01/08/2023 12:15 PM CREAT 1.0 11/08/2019 08:28 AM POTASSIUM 4.6 01/08/2023 12:15 PM POTASSIUM 4.9 11/08/2019 08:28 AM TSH 1.34 02/20/2022 03:20 PM LDLCALC 97 01/08/2023 12:15 PM LDLCALC 96 11/08/2019 08:28 AM LDLDIRECT 221 (H) 06/07/2021 12:25 PM LDLDIRECT NOT APPLICABLE 11/08/2019 08:28 AM LDLDIRECT 109 07/24/2017 10:59 AM ALT 30 01/08/2023 12:15 PM ALT 19 11/08/2019 08:28 AM HGBA1C 5.8 (H) 03/11/2023 12:03 PM documented in this encounter Plan of Treatment Upcoming Encounters Date Type Department Care Team (Late st Contact Info) Description 06/08/2023 9:10 AM EST [facility] [address] [place] [id number] [facility] [address] [facility] [place] [address] 07/15/2023 12:00 PM EDT Office Visit General Internal Medicine [facility] [address] [place] [address] Edelmira Cavanaugh MD [address] [facility] [place] [address] Scheduled Procedures Name Priority Associated Diagnoses Date/Ti [...] 18-100 01/03/2025 01/04/2020, 09/01/2013, 09/01/2013 Diabetes Screening 03/11/2026 03/11/2023, 1 , 01/08/2023, Additional history exists Lipid Panel 01/09/2028 01/08/2023, 06/04, 06/07/2021, Additional history exists LUNG CANCER SCREENING - USE SMARTSET [id number] Completed 02/25/2021, 02/23/2020, 02/16/2019, Additional history exists [...] Not on filedocumented as of this encounter Care Teams Hris Analyst Relationship Specialty Start Date End Date Edelmira Cavanaugh MD [address] [facility] [place], [place] [address] PCP - General Internal Medicine 05/09/21 documented as of this encounter
--- OUTSIDE RECORDS SUMMARY | 2023-05-13 18:45 | External Medical Summary | Summary of Care ---
Author Name Unknown Organization [facility] Address [address] [place] [address] Phone [phone] Care Team Providers Care Data Science And Iot Manager Name Role Phone Edelmira Cavanaugh MD Primary Care Provider [phone] Reason for Visit * Reason Onset Date Comments Test Results 03/12/2023 Encounter Details Date Type Department Care Team (Late st Contact Info) Description 03/12/2023 Telephone General Internal Medicine [facility] [address] [place] [id number] Edelmira Cavanaugh MD [address] [place] [address] Test Results Allergies Active Allergy Reactions Criticality Noted Date Comments Levofloxacin Other (Please comment) Low 10/18/2021 Rash documented as of this encounter (statuses as of 03/12/2023) Medications Medication Sig Dispensed Refills Start Date [...] COPD, group D, by GOLD 2017 classification ([facility]) Inhale 2 Puffs by mouth every 4 [...] , group D, by GOLD 2017 classification ([facility]),COPD exacerbation ([facility]) Inhale 1 Puff by mouth every 4 hours as needed for Wheezing. 15 g 12 01/08/2023 Active Levalbuterol HCl 1.25 MG/3ML Inhalation Nebulization SolutionIndications: COPD, group D, by GOLD 2017 classification ([facility]),COPD exacerbation ([facility]) Inhale 3 mL via nebulizer every 8 hours as needed for Wheezing. 120 mL 5 01/08/2023 Active Fluticasone-Umeclidi n-Vilant 100-62.5-25 MCG/ACT Aerosol Powder Breath Activated (Trelegy Ellipta) Inhale 1 Puff by mouth in the morning. Please rinse mouth and gargle with water after use.. 180 Blister Dosing Unit 3 01/20/2023 Active Montelukast Sodium 10 MG Oral Tablet (Singulair) Take 1 Tablet by mouth at bedtime. 90 Tablet 3 03/10/2023 Active Hospital, Clinic, or Other Facility Administered Medication Ordered Dose Route Frequency Start Date End Date Status Albuterol Sulfate (Proventil) (5 MG/ML) 0.5% *conc* inhalation solution 2.5 mgIndications:COPD, group D, by GOLD 2017 classification ([facility]),History of 2019 novel coronavirus disease (COVID-19) 2.5 mg NEBULIZER PRN 07/08/2022 07/08/2023 Active Albuterol Sulfate (Proventil) (2.5 MG/3ML) 0.083% inhalation solution 2.5 mgIndications:COPD, group D, by GOLD 2017 classification ([facility]),History of 2019 novel coronavirus disease (COVID-19) 2.5 mg NEBULIZER PRN 07/08/2022 07/08/2023 Active documented as of this encounter (statuses as of 03/12/2023) Active Problems Problem Noted Date Diagnosed Date [...] as of this encounter (statuses as of 03/12/2023) Resolved Problems Problem Noted Date Diagnosed Date Resolved Date Chronic hypoxemic respiratory failure 08/01/2016 08/18/2018 COPD, severe 07/08/2013 02/10/2018 documented as of this encounter (statuses as of 03/12/2023) Immunizations Name Administration Dates Next Due COVID-19 mRNA, LNP-s, No Pre serve, 2-Dose Series ([employer]) 04/23/2021,08/25/2020,08/04/2020 COVID-19, LNP-s, No Preserve , Eddy-sucrose, Ages 12+ (Pfizer) 11/04/2021 COVID-19, MRNA-LNP, 23-24, P F, 30 MCG/0.3 mL, 12 YRS AND ABOVE, IM ([employer]-Comirnaty) 02/23/2023 Pneumococcal Conjugate Vacci ne, 20-valent ([id number]) 12/12/2021 Pneumococcal Polysaccharide PPV23 (Pneumovax) 08/10/2013,03/21/2011(Deferred: Patient Refused) Rsv Vac., Recomb, Adjuvant, Pf,0.5 Ml (Arexvy) 02/10/2023 SEASONAL INFLUENZA, PF, 6 M & Above, [...] encounter Miscellaneous Notes * Telephone Encounter - Brandon Acevedo OSA - 03/12/2023 2:46 PM EST Pt is calling back about missed call for test results. Transferred to Dedicated Nurse line Mari * Telephone Encounter - Oracio Rodriguez LPN - 03/12/2023 2:31 PM EST Left message for patient to return call. * Telephone Encounter - Oracio Rodriguez LPN - 03/12/2023 2:30 PM EST ----- Message from Edelmira Cavanaugh MD sent at 03/12/2023 12:38 PM EST ----- Mild anemia . Check if any external bleeding ? If he taking MVI daily ? If no make sure to take daily . Check labs in 3 months for f/u along with fasting labs - ordered . Also needs to schedule visitfor f/u Elevated wbc count normalized now and sugar better . documented in this encounter Plan of Treatment Scheduled Procedures Name Priority Associated Diagnoses Date/Ti [...] exists LUNG CANCER SCREENING - USE SMARTSET [id number] Completed 02/25/2021, 02/23/2020, 02/16/2019, Additional history exists [...] filedocumented as of this encounter Care Teams Data Science And Iot Manager Relationship Specialty Start Date End Date Edelmira Cavanaugh MD [address] [place] [address] PCP - General Internal Medicine 05/09/21 documented as of this encounter
--- OUTSIDE RECORDS SUMMARY | 2023-05-13 18:45 | External Medical Summary | Summary of Care ---
Author Name Unknown Organization [facility] Address [address] [place] [address] Phone [phone] Care Team Providers Care Bicycle Fitter Name Role Phone Edelmira Cavanaugh MD Primary Care Provider [phone] Reason for Visit * Reason Onset Date Comments Test Results 03/12/2023 Encounter Details Date Type Department Care Team (Late st Contact Info) Description 03/12/2023 Telephone General Internal Medicine [facility] [address] [place] [id number] Edelmira Cavanaugh MD [address] [facility] [place] [address] Test Results Allergies Active Allergy Reactions Criticality [...] 2017 classification ([facility]) Inhale 2 Puffs by mouth every 4 [...] 2017 classification ([facility]),COPD exacerbation ([facility]) Inhale 1 Puff by mouth every 4 hours as needed for Wheezing. 15 g 12 01/08/2023 Active Levalbuterol HCl 1.25 MG/3ML Inhalation Nebulization SolutionIndications: COPD, group D, by GOLD 2017 classification ([facility]),COPD exacerbation ([facility]) Inhale 3 mL via nebulizer every 8 [...] 2017 classification ([facility]),History of 2019 novel coronavirus disease (COVID-19) 2.5 mg NEBULIZER PRN 07/08/2022 07/08/2023 Active Albuterol Sulfate (Proventil) (2.5 MG/3ML) 0.083% inhalation solution 2.5 mgIndications:COPD, group D, by GOLD 2017 classification ([facility]),History of 2019 novel coronavirus disease (COVID-19) 2.5 [...] mRNA, LNP-s, No Pre serve, 2-Dose Series (WorkVoices) 04/23/2021,08/25/2020,08/04/2020 COVID-19, LNP-s, No Preserve , Eddy-sucrose, Ages 12+ (Pfizer) 11/04/2021 COVID-19, MRNA-LNP, 23-24, P F, 30 MCG/0.3 mL, 12 YRS AND ABOVE, IM (PFIZER-Comirnaty) 02/23/2023 Pneumococcal Conjugate Vacci ne, 20-valent ([id number]) 12/12/2021 Pneumococcal Polysaccharide PPV23 (Pneumovax) 08/10/2013,03/21/2011(Deferred: Patient [...] exists LUNG CANCER SCREENING - USE SMARTSET 28285 Completed 02/25/2021, 02/23/2020, 02/16/2019, Additional history exists [...] filedocumented as of this encounter Care Teams Bicycle Fitter Relationship Specialty Start Date End Date Edelmira Cavanaugh MD [address] [facility] [place] [address] PCP - General Internal Medicine 05/09/21 documented as of this encounter
--- OUTSIDE RECORDS SUMMARY | 2023-05-13 18:45 | External Medical Summary | Summary of Care ---
Author Name Unknown Organization [facility] Address [address] [place] [address] Phone [phone] Care Team Providers Care Bobtailer Name Role Phone Edelmira Cavanaugh MD Primary Care Provider [phone] Reason for Visit * Reason Onset Date Comments Test Results 03/12/2023 Encounter Details Date Type Department Care Team (Late st Contact Info) Description 03/12/2023 Telephone General Internal Medicine [facility] [address] [place] [id number] Edelmira Cavanaugh MD [address] [facility] [place] [address] Test Results Allergies Active Allergy Reactions Criticality [...] COPD, group D, by GOLD 2017 classification ([facility]) Inhale 2 Puffs by mouth [...] , group D, by GOLD 2017 classification ([facility]),COPD exacerbation ([facility]) Inhale 1 Puff by mouth every 4 hours as needed for Wheezing. 15 g 12 01/08/2023 Active Levalbuterol HCl 1.25 MG/3ML Inhalation Nebulization SolutionIndications: COPD, group D, by GOLD 2017 classification ([facility]),COPD exacerbation ([facility]) Inhale 3 mL via nebulizer [...] mgIndications:COPD, group D, by GOLD 2017 classification ([facility]),History of 2019 novel coronavirus disease (COVID-19) 2.5 mg NEBULIZER PRN 07/08/2022 07/08/2023 Active Albuterol Sulfate (Proventil) (2.5 MG/3ML) 0.083% inhalation solution 2.5 mgIndications:COPD, group D, by GOLD 2017 classification ([facility]),History of 2019 novel coronavirus disease [...] mRNA, LNP-s, No Pre serve, 2-Dose Series (NowSpots) 04/23/2021,08/25/2020,08/04/2020 COVID-19, LNP-s, No Preserve , Eddy-sucrose, Ages 12+ (Pfizer) 11/04/2021 COVID-19, MRNA-LNP, 23-24, P F, 30 MCG/0.3 mL, 12 YRS AND ABOVE, IM (PFIZER-Comirnaty) 02/23/2023 Pneumococcal Conjugate Vacci ne, 20-valent ([id number]) 12/12/2021 Pneumococcal Polysaccharide PPV23 (Pneumovax) 08/10/2013,03/21/2011(Deferred: Patient [...] encounter Miscellaneous Notes * Telephone Encounter - Mari Jacinto LPN - 03/12/2023 2:50 PM EST Call dropped during transfer. Called pt back. No answer. Left message for pt to return call. * Telephone Encounter - Brandon Acevedo OSA [...] exists LUNG CANCER SCREENING - USE SMARTSET 30121 Completed 02/25/2021, 02/23/2020, 02/16/2019, Additional history exists [...] filedocumented as of this encounter Care Teams Bobtailer Relationship Specialty Start Date End Date Edelmira Cavanaugh MD [address] [facility] [place] [address] PCP - General Internal Medicine 05/09/21 documented as of this encounter
--- OUTSIDE RECORDS SUMMARY | 2023-05-13 18:45 | External Medical Summary ---
Author Name Unknown Address Unknown Organization K01:[facility] - [address] [facility] [place] [address] Laboratory Report Ordering Provider Test Date Status ROSE MARIE 03/11/2023 12:03:19 Final Observation Date Value Abnormality Reference (Units ) Status SYNC LEUKOCYTES IN BLOOD BY AUTOMATED COUNT 03/11/2023 12:03:19 7.61 4.00-10.80 (K/uL) Final Segs 03/11/2023 12:03:19 64.7 40.0-75.0 (%) Final Lymphs % 03/11/2023 12:03:19 22.9 18.0-42.0 (%) Final Monos 03/11/2023 12:03:19 8.4 1.0-11.0 (%) Final Eosinophils 03/11/2023 12:03:19 2.2 0.0-6.0 (%) Final Basos 03/11/2023 12:03:19 1.4 0.0-2.0 (%) Final Immature Granulocyte, Percent 03/11/2023 12:03:19 0.4 0.0-2.0 (%) Final Absolute Segs 03/11/2023 12:03:19 4.92 1.80-7.70 (K/uL) Final Lymphs, absolute 03/11/2023 12:03:19 1.74 1.00-4.80 (K/ul) Final Monos, Abs 03/11/2023 12:03:19 0.64 0.00-1.10 (K/uL) Final Eos, Abs 03/11/2023 12:03:19 0.17 0.00-0.70 (K/uL) Final Basos, Abs 03/11/2023 12:03:19 0.11 0.00-0.20 (K/uL) Final Immature Granulocytes, Number 03/11/2023 12:03:19 0.03 0.00-0.20 (K/uL) Final Performing Location [facility] - [address] [facility] [address]
--- OUTSIDE RECORDS SUMMARY | 2023-05-13 18:45 | External Medical Summary | Summary of Care ---
Author Name Unknown Organization [facility] Address [address] [place] [address] Phone [phone] Care Team Providers Care Leather Currier Name Role Phone Edelmira Cavanaugh MD Primary Care Provider Encounter Details Date Type Department Care Team (Late st Contact Info) Description 02/09/2023 Service Desk Team LeadExperimental Technician [facility] [address] [place] [address] Fiona Armstrong, RN [address] [place] [address] Medical home patient encounter*; COPD, group D, by GOLD 2017 classification ([facility]) Allergies Active Allergy Reactions Criticality Noted Date Comments Levofloxacin Other (Please comment) Low 10/18/2021 Rash documented as of this encounter (statuses as of 02/09/2023) Medications Medication Sig Dispensed Refills Start Date [...] group D, by GOLD 2017 classification ([facility]) Inhale 2 Puffs by mouth every [...] group D, by GOLD 2017 classification ([facility]),COPD exacerbation ([facility]) Inhale 1 Puff by mouth every 4 hours as needed for Wheezing. 15 g 12 01/08/2023 Active Levalbuterol HCl 1.25 MG/3ML Inhalation Nebulization SolutionIndications: COPD, group D, by GOLD 2017 classification ([facility]),COPD exacerbation ([facility]) Inhale 3 mL via nebulizer every [...] group D, by GOLD 2017 classification ([facility]),History of 2019 novel coronavirus disease (COVID-19) 2.5 mg NEBULIZER PRN 07/08/2022 07/08/2023 Active Albuterol Sulfate (Proventil) (2.5 MG/3ML) 0.083% inhalation solution 2.5 mgIndications:COPD, group D, by GOLD 2017 classification ([facility]),History of 2019 novel coronavirus disease (COVID-19) 2.5 mg NEBULIZER PRN 07/08/2022 07/08/2023 Active documented as of this encounter (statuses as of 02/09/2023) Active Problems Problem Noted Date Diagnosed Date [...] as of this encounter (statuses as of 02/09/2023) Resolved Problems Problem Noted Date Diagnosed Date Resolved Date Chronic hypoxemic respiratory failure 08/01/2016 08/18/2018 COPD, severe 07/08/2013 02/10/2018 documented as of this encounter (statuses as of 02/09/2023) Immunizations Name Administration Dates Next Due COVID-19 mRNA, LNP-s, No Pre serve, 2-Dose Series (Crysalin) 04/23/2021,08/25/2020,08/04/2020 COVID-19, LNP-s, No Preserve , Eddy-sucrose, Ages 12+ (Pfizer) 11/04/2021 Pneumococcal Conjugate Vacci ne, 20-valent ([id number]) 12/12/2021 Pneumococcal Polysaccharide PPV23 (Pneumovax) 08/10/2013,03/21/2011(Deferred: Patient [...] on file documented as of this encounter Progress Notes * Fiona Armstrong RN - 02/09/2023 3:45 PM EST Service Desk Team Lead Progress Note: Date: 02/09/23 Assigned Patient Tier: 2 Connected with patient via telephone. Verified patient name/. Advised patient that call is beingrecorded for quality and training purposes. Assessment: Pt. noted the following: Call for goal review. Pt is doing well at this time. Denies SOB, Cough or wheezing. Has appointment for COVID 19 booster on 02/23. Needs to schedule follow up with sleep medicine for C-Pap. Did you receive an alert for an annual wellness visit? No Is this call for a hospital, m[facility] or rehab facility discharge to home? No Medication Reconciliation: Medication Reconciliation completed: no Review of Current goals: Discussed the following patient-centered CM goals with the patient during this discussion: -COPD: Achieve successful management of COPD -Status: At Risk needs f/u with sleep medicine. -Prevention: Prevent admission/readmission -Status: On Track met with PCP. -SAFETY: Prevent falls or injuries -Status: On Track denies any falls or injury, using DME when needed. COPD Patient: YES Breathing: Breathing at Baseline CHF Patient: NO CM Plan: Reviewed 3 Red Flags with patient. Advised to call CM with any of the following: Red Flag 1: feversor chills, Red Flag 2: worsening cough, or Red Flag 3: wheezing or SOB Remote Patient Monitoring: At this time, RPM not offered/considered for patient due to NA. Plan for Future Contacts: Plan to follow up within 1 month to check progress on the following goals/needs COPD. Planned contacts from the following parties will occur this week: N/A as additional contacts per workflow. Advancement/Closure Plan: Graduate patient to the next lower tier. Tier: 3 Patient provided CM contact information and encouraged to call with any changes in condition. SNP Member? No PCP Notified of enrollment in CM/HM program: Yes Is Provider in agreement with POC? Yes Fiona Armstrong RN Outpatient Case Management documented in this encounter Plan of Treatment Upcoming Encounters Date Type Department Care Team (Late st Contact Info) Description 02/23/2023 10:45 AM EST Immunization [facility] [address] [place] [address] Homar Mathewsid19 [facility] [address] [place] [address] Scheduled Procedures Name Priority Associated Diagnoses Date/Ti me COLONOSCOPY FLEXIBLE PROXIMAL DIAGNOSTIC Recall History of colon polyps Health Maintenance Due Date Last Done Comments *ADVANCE DIRECTIVE NOT ON FILE 09/18/2018 COVID-19 Vaccine ( season) 2022 11/04/2021, 04/23/2021, 08/25/2020, Additional history [...] exists LUNG CANCER SCREENING - USE SMARTSET 13361 Completed 02/25/2021, 02/23/2020, 02/16/2019, Additional history exists [...] as of this encounter Visit Diagnoses Diagnosis Medical home patient encounter- Primary Other specified examination COPD, group D, by GOLD 2017 classification (HCC) documented in this encounter Care Teams Leather Currier Relationship Specialty Start Date End Date Edelmira Cavanaugh MD [address] [facility] [place] [address] PCP - General Internal Medicine 05/09/21 documented as of this encounter
--- OUTSIDE RECORDS SUMMARY | 2023-05-13 18:45 | External Medical Summary | Summary of Care ---
Author Name Unknown Organization [facility] Address [address] [place] [address] Phone [phone] Care Team Providers Care Pediatric Orthodontist Name Role Phone Edelmira Cavanaugh MD Primary Care Provider [phone] Reason for Visit * Reason Onset Date Comments Test Results 03/12/2023 Encounter Details Date Type Department Care Team (Late st Contact Info) Description 03/12/2023 Telephone General Internal Medicine [facility] [address] [place] [phone] Edelmira Cavanaugh MD [address] [place] [facility] [place] [address] Test Results Allergies Active Allergy Reactions Criticality [...] COPD, group D, by GOLD 2017 classification ([facility]) Inhale 2 Puffs by mouth [...] , group D, by GOLD 2017 classification ([facility]),COPD exacerbation ([facility]) Inhale 1 Puff by mouth every 4 hours as needed for Wheezing. 15 g 12 01/08/2023 Active Levalbuterol HCl 1.25 MG/3ML Inhalation Nebulization SolutionIndications: COPD, group D, by GOLD 2017 classification ([facility]),COPD exacerbation ([facility]) Inhale 3 mL via nebulizer [...] mgIndications:COPD, group D, by GOLD 2017 classification ([facility]),History of 2019 novel coronavirus disease (COVID-19) 2.5 mg NEBULIZER PRN 07/08/2022 07/08/2023 Active Albuterol Sulfate (Proventil) (2.5 MG/3ML) 0.083% inhalation solution 2.5 mgIndications:COPD, group D, by GOLD 2017 classification ([facility]),History of 2019 novel coronavirus disease [...] mRNA, LNP-s, No Pre serve, 2-Dose Series (QuickBlox) 04/23/2021,08/25/2020,08/04/2020 COVID-19, LNP-s, No Preserve , Eddy-sucrose, Ages 12+ (Pfizer) 11/04/2021 COVID-19, MRNA-LNP, 23-24, P F, 30 MCG/0.3 mL, 12 YRS AND ABOVE, IM (PFIZER-Comirnaty) 02/23/2023 Pneumococcal Conjugate Vacci ne, 20-valent ([id number]) 12/12/2021 Pneumococcal Polysaccharide PPV23 (Pneumovax) 08/10/2013,03/21/2011(Deferred: Patient [...] Encounter - Mari Jacinto LPN - 03/12/2023 2:59 PM EST Patient returned call. Informed of message. Verbalized understanding. No bleeding or black tarry stools. He will start taking Multi vit. Lab appt scheduled at Return visit scheduled for 07/14 * Telephone Encounter - Mari Jacinto LPN [...] Description 06/08/2023 9:10 AM EST Laboratory Laboratory, [facility] [address] [facility] [place] [address] [facility] [address] [facility] [place] [address] 07/15/2023 12:00 PM EDT Office Visit General Internal Medicine [facility] [address] [facility] [place] [address] Edelmira Cavanaugh MD [address] [facility] [place] [address] Scheduled Procedures Name Priority Associated Diagnoses Date/Ti [...] Additional history exists Lipid Panel 01/09/2028 01/08/2023, 0310/2022, 06/07/2021, Additional history exists LUNG CANCER SCREENING - USE SMARTSET 17227 Completed 02/25/2021, 02/23/2020, 02/16/2019, Additional history exists [...] filedocumented as of this encounter Care Teams Pediatric Orthodontist Relationship Specialty Start Date End Date Edelmira Cavanaugh MD [address] [facility] [place] [address] PCP - General Internal Medicine 05/09/21 documented as of this encounter
--- OUTSIDE RECORDS SUMMARY | 2023-05-13 18:45 | External Medical Summary | Summary of Care ---
Author Name Unknown Organization [facility] Address [address] [place] [address] Phone [phone] Care Team Providers Care Corporate Recycling Manager Name Role Phone Edelmira Cavanaugh MD Primary Care Provider [phone] Reason for Visit * Reason Onset Date Comments Med Request 03/10/2023 Encounter Details Date Type Department Care Team (Late st Contact Info) Description 03/10/2023 Telephone General Internal Medicine [facility] [address] [place] [phone] Edelmira Cavanaugh MD [address] [facility] [place] [address] Med Request Allergies Active Allergy Reactions Criticality Noted Date Comments Levofloxacin Other (Please comment) Low 10/18/2021 Rash documented as of this encounter (statuses as of 03/10/2023) Medications Medication Sig Dispensed Refills Start Date [...] COPD, group D, by GOLD 2017 classification ([facility]) Inhale 2 Puffs by mouth every [...] , group D, by GOLD 2017 classification ([facility]),COPD exacerbation ([facility]) Inhale 1 Puff by mouth every 4 hours as needed for Wheezing. 15 g 12 01/08/2023 Active Levalbuterol HCl 1.25 MG/3ML Inhalation Nebulization SolutionIndications: COPD, group D, by GOLD 2017 classification ([facility]),COPD exacerbation ([facility]) Inhale 3 mL via nebulizer every [...] mgIndications:COPD, group D, by GOLD 2017 classification ([facility]),History of 2019 novel coronavirus disease (COVID-19) 2.5 mg NEBULIZER PRN 07/08/2022 07/08/2023 Active Albuterol Sulfate (Proventil) (2.5 MG/3ML) 0.083% inhalation solution 2.5 mgIndications:COPD, group D, by GOLD 2017 classification ([facility]),History of 2019 novel coronavirus disease (COVID-19) 2.5 mg NEBULIZER PRN 07/08/2022 07/08/2023 Active documented as of this encounter (statuses as of 03/10/2023) Active Problems Problem Noted Date Diagnosed Date [...] as of this encounter (statuses as of 03/10/2023) Resolved Problems Problem Noted Date Diagnosed Date Resolved Date Chronic hypoxemic respiratory failure 08/01/2016 08/18/2018 COPD, severe 07/08/2013 02/10/2018 documented as of this encounter (statuses as of 03/10/2023) Immunizations Name Administration Dates Next Due COVID-19 mRNA, LNP-s, No Pre serve, 2-Dose Series (Invacio) 04/23/2021,08/25/2020,08/04/2020 COVID-19, LNP-s, No Preserve , Eddy-sucrose, Ages 12+ (Pfizer) 11/04/2021 COVID-19, MRNA-LNP, 23-24, P F, 30 MCG/0.3 mL, 12 YRS AND ABOVE, IM (PFIZER-Comirnaty) 02/23/2023 Pneumococcal Conjugate Vacci ne, 20-valent ([id number]) 12/12/2021 Pneumococcal Polysaccharide PPV23 (Pneumovax) 08/10/2013,03/21/2011(Deferred: Patient [...] Telephone Encounter - Edelmira Cavanaugh MD - 03/10/2023 3:32 PM EST Done * Telephone Encounter - Mari Jacinto LPN - 03/10/2023 2:24 PM EST Pending Prescriptions: Disp Refills Montelukast Sodium 10 MG Oral Tablet (Sin*30 Tab*5 Sig: Take 1 Tablet by mouth at bedtime. Last Visit: 01/08/2023 (in office), Visit date not found (telemedicine) Next Visit: Visit date not found Last date the medication was ordered: Ok to refill? Med was discontinued. Patient Active Problem List Diagnosis Code History of tobacco use Z87.891 Dyslipidemia, goal LDL below 100 E78.5 Mild obstructive sleep apnea-hypopnea syndrome G47.33 RVH (right ventricular hypertrophy) I51.7 COPD, group D, by GOLD 2017 classification ([facility]) J44.9 Bronchiectasis without complication ([facility]) J47.9 Centrilobular emphysema ([facility]) J43.[address] of the chest R93.89 Migraine without aura and without status migrainosus, not intractable G43.009 Multiple lung nodules R91.8 Nocturnal hypoxemia G47.34 Dependence on continuous supplemental oxygen Z99.81 Labs: Lab Results Component Value Date/Time CREATININE - [facility] 1.0 01/08/2023 12:15 PM CREATININE - [facility] 1.0 11/08/2019 08:28 AM CREATININE-OUTSIDE LAB 0.84 07/22/2018 12:00 AM Lab Results Component Value Date/Time POTASSIUM - [facility] 4.6 01/08/2023 12:15 PM POTASSIUM - [facility] 4.9 11/08/2019 08:28 AM POTASSIUM-OUTSIDE LAB 3.6 07/22/2018 12:00 AM Lab Results Component Value Date/Time TSH - [facility] 1.34 02/20/2022 03:20 PM Lab Results Component Value Date/Time LDL CHOLESTEROL (CALCULATED) - [facility] 97 01/08/2023 12:15 PM LDL CHOLESTEROL (CALCULATED) - [facility] 83 06/20/2022 10:27 AM LDL CHOLESTEROL (CALCULATED) - [facility] 96 11/08/2019 08:28 AM LDL CHOLESTEROL (CALCULATED) - [facility] 104 08/18/2018 11:37 AM LDL CHOLESTEROL (DIRECT MEASURE) - [facility] 221 (H) 06/07/2021 12:25 PM LDL CHOLESTEROL (DIRECT MEASURE) - [facility] NOT APPLICABLE 11/08/2019 08:28 AM LDL CHOLESTEROL (DIRECT MEASURE) - [facility] NOT APPLICABLE 08/18/2018 11:37 AM LDL CHOLESTEROL (DIRECT MEASURE) - [facility] 109 07/24/2017 10:59 AM LDL CHOLESTEROL (DIRECT MEASURE) - [facility] 120 04/18/2014 03:51 PM Lab Results Component Value Date/Time ALT - [facility] 30 01/08/2023 12:15 PM ALT - [facility] 19 11/08/2019 08:28 AM ALT-OUTSIDE LAB 30 04/08/2016 12:00 AM Hemoglobin AIC Results: Lab Results Component Value Date/Time HEMOGLOBIN A1C - [facility] 6.4 (H) 01/08/2023 12:15 PM * Telephone Encounter - Tommy Ross OSA - 03/10/2023 12:12 PM EST Pt need refill sent in for hit Montelukast 10 mg documented in this encounter Plan of Treatment [...] exists LUNG CANCER SCREENING - USE SMARTSET 76649 Completed 02/25/2021, 02/23/2020, 02/16/2019, Additional history exists [...] filedocumented as of this encounter Care Teams Corporate Recycling Manager Relationship Specialty Start Date End Date Edelmira Cavanaugh MD [address] [place] [address] PCP - General Internal Medicine 05/09/21 documented as of this encounter
--- OUTSIDE RECORDS SUMMARY | 2023-05-13 18:45 | External Medical Summary | Summary of Care ---
Author Name Unknown Organization [facility] Address [address] [place] [address] Phone [phone] Care Team Providers Care Lead Accountant Name Role Phone Edelmira Cavanaugh MD Primary Care Provider [phone] Reason for Referral * Evaluate & Treat - Unlimited Visits (Within 30 days (routine)) - Authorized Specialty Diagnoses / Procedures Referred By Aubrey austin Referred To Contact Sleep Medicine / Sleep Disorders Diagnoses COPD, group D, by GOLD 2017 classification (HCC) Nocturnal hypoxemia Edelmira Cavanaugh MD [address] [place] [address] [place] [id number] Referral ID Status Reason Start Date Expiration Date Visits Requested Visits Authorized [id number] Authorized Specialty Services Required 01/08/2023 2 2 Question Answer Referral Priority Within 30 days (routine) Where should this appointment be scheduled? [facility] SLEEP MED ADULT REFERRAL Sleep Apnea Testing and Management Does the patient snore and/or gasp at night or has been told they stop breathing at night? Unknown Comments Severe COPD and nocturnal hypoxia Reason for Visit * Reason Onset Date Comments Hospital Follow-Up [facility] d/c 01/05 Hospital Follow-Up 01/08/2023 Encounter Details Date Type Department Care Team (Latest Contact Info) Description 01/08/2023 11:00 AM EDT Office Visit General Internal Medicine State Babita Stark [address] [address] Edelmira Cavanaugh MD [address] [facility] [place] [id number] COPD exacerbation (HCC)*; Hospital discharge follow-up; Leukocytosis, unspecified type; Bronchiectasis without complication (HCC); Centrilobular emphysema (HCC); COPD, group D, by GOLD 2017 classification (HCC); Dependence on continuous supplemental oxygen; Dyslipidemia, goal LDL below 100; History of tobacco use; Migraine without aura and without status migrainosus, not intractable; Mild obstructive sleep apnea-hypopnea syndrome; Multiple lung nodules; Nocturnal hypoxemia; RVH (right ventricular hypertrophy); Abnormal CT of the chest Allergies Active Allergy Reactions Criticality Noted Date Comments Levofloxacin Other (Please comment) Low 10/18/2021 Rash documented as of this encounter (statuses as of 01/25/2023) Medications Medication Sig Dispensed Refills Start Date End Date Status aspirin enteric coated 81 MG TBEC Take 1 Tab by mouth daily. 100 Tab 3 09/07/19 15 Active Multiple Vitamin (ONE-A-DAY MENS) Tablet Take 1 Tablet by mouth in the morning. 0 08/19/19 19 Active Acetaminophen 500 MG Oral Tablet (Tylenol) Take 1-2 Tablets by mouth every 8 hours as needed for Fever >38C(100.5F), Pain, Mild or Pain, Moderate. 0 Active oxygen IN GAS 2 LPM via NC continuously 1 Each 0 04/14/19 23 Active guaiFENesin ER 600 MG Oral Tablet Extended Release 12 Hour Take 1 Tablet by mouth as needed. 0 06/12/19 23 Active Metoprolol Succinate ER 25 MG Oral Tablet Extended Release 24 Hour (toPROL XL) Take 0.5 Tablets by mouth at bedtime. 0 06/12/19 23 Active Rosuvastatin Calcium 20 MG Oral Tablet (Crestor)Indicatio ns:Dyslipidemia, goal LDL below 100 TAKE 1 TABLET BY MOUTH IN THE MORNING 90 Tablet 3 07/24/19 23 Active Zoster Vac Recomb Adjuvanted 50 MCG/0.5ML Intramuscular Suspension Reconstituted (Shingrix)Indicati ons:Need for vaccination for zoster Inject 0.5 mL into a large muscle now and repeat dose in 60 to 180 days 1 Each 1 12/03/19 23 Active Terbinafine HCl 1 % External Cream (LamISIL AT ATHLETE'S FOOT)Indications:T inea pedis of both feet Apply topically to affected area 2 times a day. Apply to both feet 42 g 3 12/03/19 23 Active Jublia 10 % External Solution (Efinaconazole)Ind ications:Dermatoph ytosis of nail Apply topically to affected area 2 times a day. Apply to toe nails 8 mL 5 12/03/19 23 Active Albuterol Sulfate HFA 108 (90 Base) MCG/ACT Inhalation Aerosol SolutionIndication s:COPD, group D, by GOLD 2017 classification ([facility]) Inhale 2 Puffs by mouth every 4 hours as needed for Cough, Shortness of Breath or Wheezing. 54 g 3 12/24/19 23 Active Cyclobenzaprine HCl 10 MG Oral Tablet (Flexeril) Take 1 Tablet by mouth every 6 hours as needed for Muscle spasms. 0 Active Amoxicillin-Pot Clavulanate 875-125 MG Oral Tablet 0 01/06/20 23 Active Levalbuterol Tartrate 45 MCG/ACT Inhalation Aerosol (Xopenex HFA)Indications:CO PD, group D, by GOLD 2017 classification ([facility]),COPD exacerbation ([facility]) Inhale 1 Puff by mouth every 4 hours as needed for Wheezing. 15 g 12 01/09/20 23 Active Levalbuterol HCl 1.25 MG/3ML Inhalation Nebulization SolutionIndication s:COPD, group D, by GOLD 2017 classification ([facility]),COPD exacerbation ([facility]) Inhale 3 mL via nebulizer every 8 hours as needed for Wheezing. 120 mL 01/09/20 23 Active Fluticasone-Umecli din-Vilant 100-62.5-25 MCG/INH Aerosol Powder Breath Activated (TRELEGY ellipta) Inhale by mouth 1 Puff in the morning. Please rinse mouth out after use.. 180 Blister Dosing Unit 3 10/19/19 22 023 Discontinued(Re fill) predniSONE 10 MG Oral Tablet (Deltasone) Take 5 tabs for 2 days, 4 tabs for 2 days, 3 tabs for 2 days, 2 tabs for 2 days 1 tab for 2 days 30 Tablet 0 12/24/19 23 023 Discontinued Albuterol Sulfate 1.25 MG/3ML Inhalation Nebulization SolutionIndication s:COPD exacerbation ([facility]) Inhale 1.25 mg via nebulizer every 4 hours as needed for Wheezing. 120 mL 5 12/24/19 23 023 Discontinued(Me dication/Dose Changed) Montelukast Sodium 10 MG Oral Tablet (Singulair) Take 1 Tablet by mouth at bedtime. 0 023 Discontinued Hospital, Clinic, or Other Facility Administered Medication Ordered Dose Route Frequency Start Date End Date Status Albuterol Sulfate (Proventil) (5 MG/ML) 0.5% *conc* inhalation solution 2.5 mgIndications:COPD, group D, by GOLD 2017 classification ([facility]),History of 2019 novel coronavirus disease (COVID-19) 2.5 mg NEBULIZER PRN 07/08/2022 07/08/2023 Active Albuterol Sulfate (Proventil) (2.5 MG/3ML) 0.083% inhalation solution 2.5 mgIndications:COPD, group D, by GOLD 2017 classification ([facility]),History of 2019 novel coronavirus disease (COVID-19) 2.5 mg NEBULIZER PRN 07/08/2022 07/08/2023 Active documented as of this encounter (statuses as of 01/25/2023) Active Problems Problem Noted Date Diagnosed Date [...] as of this encounter (statuses as of 01/25/2023) Resolved Problems Problem Noted Date Diagnosed Date Resolved Date Chronic hypoxemic respiratory failure 08/01/2016 08/18/2018 COPD, severe 07/08/2013 02/10/2018 documented as of this encounter (statuses as of 01/25/2023) Immunizations Name Administration Dates Next Due COVID-19 mRNA, LNP-s, No Pre serve, 2-Dose Series ([employer]) 04/23/2021,08/25/2020,08/04/2020 COVID-19, LNP-s, No Preserve , Eddy-sucrose, Ages 12+ (Pfizer) 11/04/2021 Pneumococcal Conjugate Vacci ne, 20-valent ([id number]) 12/12/2021 Pneumococcal Polysaccharide PPV23 (Pneumovax) 08/10/2013,03/21/2011(Deferred: Patient [...] Recorded PHQ Adult Total Score 0 12/02/2022 Sex and Gender Information Value Date Recorded Sex Assigned at Male 07/26/2018 11:36 AM EDT Gender Identity Male 07/26/2018 11:36 AM EDT Sexual Orientation Straight 07/26/2018 11 :36 AM EDT Job Start Date Occupation Industry Not on file Not on file Not on file documented as of this encounter Last Filed Vital Signs Vital Sign Reading Time Taken Comments Blood Pressure 104/66 01/08/2023 10:56 AM EDT Pulse 135 01/08/2023 10:56 AM EDT Temperature 36.9 C (98.4 F) 01/08/2023 10:56 AM E DT Respiratory Rate - - Oxygen Saturation 94% 01/08/2023 10:56 AM EDT Inhaled Oxygen Concentration - - Weight 72.4 kg (159 lb 9.6 oz) 01/08/2023 10:56 AM EDT Height - - Body Mass Index 25.37 12/02/2022 9:00 AM EDT documented in this encounter Progress Notes * Edelmira Cavanaugh MD - 01/08/2023 11:11 AM EDT SUBJECTIVE: Liang Hodge is a 62 year old male. Chief Complaint Patient presents with Hospital Follow-Up [facility] d/c 01/05/23 HPI: 62 year old male with a history of COPD Group D, Migraine Headaches, and Hyperlipidemia presents here for hospital follow up. Pt was having worsening SOB and some cough but no flu like symptoms for few days , symptoms didn't get better but got worse despite of taking frequent neb . Presented to hospital on 12/23/22 . He was found to have COPD exacerbation with rep failure. He was then admitted and treated with bipap with o2 , IV steroid , augmentin and neb treatment . Labs were overall normal except leucocytosis and Imaging CXR with no new finding. He was seen by Resp therapist and PT . Rest of the hospital course unremarkable . He was sent home on 01/05/23 on prednisone , Augmentin and rest of home medication. Since discharge feeling better . Hospital records reviewed and updated. The patient's medication list was reviewed and updated as needed. Current issues now- -since he used BiPAP in hospital feels that he can take better breath and only need O2 few hour a day and wondering if he can use that at home as well . Explained need to do sleep study to see if he has sleep apnea Patient Active Problem List Diagnosis Code History of tobacco use Z87.891 Dyslipidemia, goal LDL below 100 E78.5 Mild obstructive sleep apnea-hypopnea syndrome G47.33 RVH (right ventricular hypertrophy) I51.7 COPD, group D, by GOLD 2017 classification ([facility]) J44.9 Bronchiectasis without complication ([facility]) J47.9 Centrilobular emphysema ([facility]) J43.[address] of the chest R93.89 Migraine without aura and without status migrainosus, not intractable G43.009 Multiple lung nodules R91.8 Nocturnal hypoxemia G47.34 Dependence on continuous supplemental oxygen Z99.81 Current Outpatient Medications Medication Sig Dispense Refill aspirin enteric coated 81 MG TBEC Take 1 Tab by mouth daily. 100 Tab 3 Multiple Vitamin (ONE-A-DAY MENS) Tablet Take 1 Tablet by mouth in the morning. Acetaminophen 500 MG Oral Tablet (Tylenol) Take 1-2 Tablets by mouth every 8 hours as needed for Fever >38C(100.5F), Pain, Mild or Pain, Moderate. Rnmcbdzxtik-Ixuqtqvlq-Hanxrp 100-62.5-25 MCG/INH Aerosol Powder Breath Activated (TRELEGY ellipta) Inhale by mouth 1 Puff in the morning. Please rinse mouth out after use.. 180 Blister Dosing Unit 3 oxygen IN GAS 2 LPM via NC continuously 1 Each 0 guaiFENesin ER 600 MG Oral Tablet Extended Release 12 Hour Take 1 Tablet by mouth as needed. Metoprolol Succinate ER 25 MG Oral Tablet Extended Release 24 Hour (toPROL XL) Take 0.5 Tablets by mouth at bedtime. Rosuvastatin Calcium 20 MG Oral Tablet (Crestor) TAKE 1 TABLET BY MOUTH IN THE MORNING 90 Tablet 3 Zoster Vac Recomb Adjuvanted 50 MCG/0.5ML Intramuscular Suspension Reconstituted (Shingrix) Inject 0.5 mL into a large muscle now and repeat dose in 60 to 180 days 1 Each 1 Terbinafine HCl 1 % External Cream (LamISIL AT ATHLETE'S FOOT) Apply topically to affected area 2 times a day. Apply to both feet 42 g 3 Jublia 10 % External Solution (Efinaconazole) Apply topically to affected area 2 times a day. Applyto toe nails 8 mL 5 Albuterol Sulfate HFA 108 (90 Base) MCG/ACT Inhalation Aerosol Solution Inhale 2 Puffs by mouth every 4 hours as needed for Cough, Shortness of Breath or Wheezing. 54 g 3 Albuterol Sulfate 1.25 MG/3ML Inhalation Nebulization Solution Inhale 1.25 mg via nebulizer every 4hours as needed for Wheezing. 120 mL 5 Cyclobenzaprine HCl 10 MG Oral Tablet (Flexeril) Take 1 Tablet by mouth every 6 hours as needed forMuscle spasms. Amoxicillin-Pot Clavulanate 875-125 MG Oral Tablet TAKE 1 TABLET BY MOUTH TWICE DAILY WITH MEALS FOR 4 DAYS Current Facility-Administered Medications Medication Dose Route Frequency Provider Last Rate Last Admin Albuterol Sulfate (Proventil) (5 MG/ML) 0.5% *conc* inhalation solution 2.5 mg 2.5 mg Nebulizer ANNETTE Sheridan Albuterol Sulfate (Proventil) (2.5 MG/3ML) 0.083% inhalation solution 2.5 mg 2.5 mg Nebulizer PRANNETTE Doss Review of patient's allergies indicates: Allergen Reactions Levaquin [Levofloxacin] Other (Please comment) Rash Past Medical History: Diagnosis Date Benign neoplasm of colon 09/01/2013 adenomatous & hyperplastic polyps, repeat 5 yrs COPD, severe (HCC) 07/08/2013 Migraine without aura 04/18/2014 Past Surgical History: Procedure Laterality Date COLONOSCOPY, DIAGNOSTIC (RECTUM) 09/01/2013 adenomatous & hyperplastic polyps, repeat 5 yrs/COLONOSCOPY FLEXIBLE PROXIMAL DIAGNOSTIC performed by Dawood Aguilar MD at ENDOSCOPY [facility] COLONOSCOPY, DIAGNOSTIC (RECTUM) 01/04/2020 diverticulosis, repeat 5 yrs / [facility] COLONOSCOPY, DIAGNOSTIC (RECTUM) 01/04/2020 normal, repeat 5 yrs / [facility] REPAIR SHOULDER CUFF AVULSION Right WRIST ARTHROSCOPY/SURGERY 04/06/1994 fx right Family History Problem Relation Age of Onset Cancer Mother Lung Disorder Mother emphysema Genitourinary Disorder Father kidney failure/ deseased Lung Disorder Father Neurological Disorder Father Parkinson's Cancer Brother brain/ Cancer Brother brain/deseased Social History Socioeconomic History Marital status: Single Tobacco Use Smoking status: Former Packs/day: 1.00 Years: 44.00 Pack years: 44.00 Types: Cigarettes Quit date: 06/28/2021 Years since quittin.5 Smokeless tobacco: Never Substance and Sexual Activity Alcohol use: No Drug use: No Sexual activity: Yes Partners: Female Family History Problem Relation Age of Onset Cancer Mother Lung Disorder Mother emphysema Genitourinary Disorder Father kidney failure/ deseased Lung Disorder Father Neurological Disorder Father Parkinson's Cancer Brother brain/ Cancer Brother brain/deseased REVIEW OF SYSTEMS: All 10 systems reviewed and negative except mentioned in HPI OBJECTIVE: BP 104/66 | Pulse 135 | Temp 36.9 C (98.4 F) (Tympanic) | Wt 72.4 kg (159 lb 9.6 oz) | SpO2 94%| BMI 25.37 kg/m | BSA 1.84 m PHYSICAL EXAM: General: alert, healthy, and no distress, on O2 Head: Normocephalic, No masses, lesions, tenderness or abnormalities Oropharynx: no exudate, lips, buccal mucosa, and tongue normal, mucous membranes are moist, and mild erythema Neck: supple, no adenopathy, no bruits, thyroid normal size, non-tender, without nodularity Heart: regular rate & rhythm, no murmur, and no gallops Lungs: chest symmetric with normal AP diameter, no chest deformities noted, no chest wall tenderness, decreased breath sounds Abdomen: abdomen soft, non-tender, normal bowel sounds, and no masses or organomegaly Extremities: less than 2 second capillary refill, no joint deformities, effusion, or inflammation ASSESSMENT AND PLAN COPD exacerbation (HCC) (Primary) - DISCH MED RECON CUR MED LIS - Levalbuterol Tartrate 45 MCG/ACT Inhalation Aerosol (Xopenex HFA); Inhale 1 Puff by mouth every 4hours as needed for Wheezing. - Levalbuterol HCl 1.25 MG/3ML Inhalation Nebulization Solution; Inhale 3 mL via nebulizer every 8 hours as needed for Wheezing. Complete prednisone and augmentin Hospital discharge follow-up - DISCH MED RECON CUR MED LIS Leukocytosis, unspecified type - CBC WITH WBC DIFFERENTIAL; Future; Expected date: 01/08/2023 Bronchiectasis without complication (HCC) Centrilobular emphysema (HCC) COPD, group D, by GOLD 2017 classification (HCC) - SLEEP MEDICINE REFERRAL OP - Levalbuterol Tartrate 45 MCG/ACT Inhalation Aerosol (Xopenex HFA); Inhale 1 Puff by mouth every 4hours as needed for Wheezing. - Levalbuterol HCl 1.25 MG/3ML Inhalation Nebulization Solution; Inhale 3 mL via nebulizer every 8 hours as needed for Wheezing. Dependence on continuous supplemental oxygen Dyslipidemia, goal LDL below 100 History of tobacco use Migraine without aura and without status migrainosus, not intractable Mild obstructive sleep apnea-hypopnea syndrome Multiple lung nodules Nocturnal hypoxemia - SLEEP MEDICINE REFERRAL OP RVH (right ventricular hypertrophy) Abnormal CT of the chest Treatment and plan was discussed with patient and was given opportunity to ask questions which wereanswered appropriately. Patient verbalizing understanding. This note was prepared with the help of fluency and if there is any mis-spelled words , sentences or something which doesn't represent the content of the subject that could be technical error and please refer to the author for clarification. Edelmira Cavanaugh MD 11:11 AM 01/08/2023 documented in this encounter Nursing Notes * Ryanne Barker LPN - 01/08/2023 10:56 AM EDT Chief Complaint Patient presents with Hospital Follow-Up [facility] d/c 01/05/23 documented in this encounter Plan of Treatment Scheduled Procedures Name Priority Associated Diagnoses Date/Ti me COLONOSCOPY FLEXIBLE PROXIMAL DIAGNOSTIC Recall History of colon polyps Scheduled Referrals Name Type Priority Associated Diagnoses Orde r Schedule SLEEP MEDICINE REFERRAL OP Referral Within 30 days (routine) COPD, group D, by GOLD 2017 classification (HCC) Nocturnal hypoxemia Ordered: 01/08/2023 Health Maintenance Due Date Last Done Comments [...] exists LUNG CANCER SCREENING - USE SMARTSET [id number] Completed 02/25/2021, 02/23/2020, 02/16/2019, Additional history exists [...] as of this encounter Visit Diagnoses Diagnosis COPD exacerbation (HCC)- Primary Obstructive chronic bronchitis with exacerbation Hospital discharge follow-up Other follow-up examination Leukocytosis, unspecified type Bronchiectasis without complication (HCC) Bronchiectasis without acute exacerbation Centrilobular emphysema (HCC) Other emphysema COPD, group D, by GOLD 2017 classification (HCC) Dependence on continuous supplemental oxygen Dyslipidemia, goal LDL below 100 Other and unspecified hyperlipidemia History of tobacco use Personal history of tobacco use, presenting hazards to health Migraine without aura and without status migrainosus, not intractable Migraine without aura, without mention of intractable migraine without mention of status migrainosus Mild obstructive sleep apnea-hypopnea syndrome Multiple lung nodules Other nonspecific abnormal finding of lung field Nocturnal hypoxemia Hypoxemia RVH (right ventricular hypertrophy) Cardiomegaly Abnormal CT of the chest Nonspecific (abnormal) findings on radiological and other examination of other intrathoracic organs documented in this encounter Care Teams Lead Accountant Relationship Specialty Start Date End Date Edelmira Cavanaugh MD [address] [facility] [place] [address] PCP - General Internal Medicine 05/09/21 documented as of this encounter"
--- OUTSIDE RECORDS SUMMARY | 2023-05-13 18:45 | External Medical Summary | Summary of Care ---
Author Name Unknown Organization [facility] Address [address] [place] [address] Phone [phone] Care Team Providers Care Senior Project Controls Specialist Name Role Phone Edelmira Cavanaugh MD Primary Care Provider [phone] Reason for Visit * Reason Comments Outpatient Testing Encounter Details Date Type Department Care Team (Late st Contact Info) Description 03/11/2023 12:00 PM EST Laboratory Laboratory, [facility] [address] [facility] [place] [address] [employer] [address] [place] [address] Leukocytosis, unspecified type; Impaired fasting glucose Allergies Active Allergy Reactions Criticality Noted Date Comments Levofloxacin Other (Please comment) Low 10/18/2021 Rash documented as of this encounter (statuses as of 03/11/2023) Medications Medication Sig Dispensed Refills Start Date [...] D, by GOLD 2017 classification ([facility]) Inhale 2 Puffs by mouth every [...] D, by GOLD 2017 classification ([facility]),COPD exacerbation ([facility]) Inhale 1 Puff by mouth every 4 hours as needed for Wheezing. 15 g 12 01/08/2023 Active Levalbuterol HCl 1.25 MG/3ML Inhalation Nebulization SolutionIndications: COPD, group D, by GOLD 2017 classification ([facility]),COPD exacerbation ([facility]) Inhale 3 mL via nebulizer every [...] D, by GOLD 2017 classification ([facility]),History of 2019 novel coronavirus disease (COVID-19) 2.5 mg NEBULIZER PRN 07/08/2022 07/08/2023 Active Albuterol Sulfate (Proventil) (2.5 MG/3ML) 0.083% inhalation solution 2.5 mgIndications:COPD, group D, by GOLD 2017 classification ([facility]),History of 2019 novel coronavirus disease (COVID-19) 2.5 mg NEBULIZER PRN 07/08/2022 07/08/2023 Active documented as of this encounter (statuses as of 03/11/2023) Active Problems Problem Noted Date Diagnosed Date [...] as of this encounter (statuses as of 03/11/2023) Resolved Problems Problem Noted Date Diagnosed Date Resolved Date Chronic hypoxemic respiratory failure 08/01/2016 08/18/2018 COPD, severe 07/08/2013 02/10/2018 documented as of this encounter (statuses as of 03/11/2023) Immunizations Name Administration Dates Next Due COVID-19 mRNA, LNP-s, No Pre serve, 2-Dose Series ([email or web address]) 04/23/2021,08/25/2020,08/04/2020 COVID-19, LNP-s, No Preserve , Eddy-sucrose, Ages 12+ (Pfizer) 11/04/2021 COVID-19, MRNA-LNP, 23-24, P F, 30 MCG/0.3 mL, 12 YRS AND ABOVE, IM (PFIZER-Comirnaty) 02/23/2023 Pneumococcal Conjugate Vacci ne, 20-valent ([id number]) 12/12/2021 Pneumococcal Polysaccharide PPV23 (Pneumovax) 08/10/2013,03/21/2011(Deferred: Patient [...] on file documented as of this encounter Plan of Treatment Pending Results Name Type Priority Associated Diagnoses Date /Time CBC WITH WBC DIFFERENTIAL AND ANEMIA REFLEX WORKUP Lab Routine Leukocytosis, unspecified type 03/11/2023 12:03 PM EST HEMOGLOBIN A1C Lab Routine Impaired fasting glucose 03/11/2023 12:03 PM EST ANEMIA CBC Lab Routine Leukocytosis, unspecified type 03/11/2023 12:03 PM EST DIFFERENTIAL, AUTOMATED Lab Routine Leukocytosis, unspecified type 03/11/2023 12:03 PM EST ANEMIA REFLEX CHEMISTRY HOLD Lab Routine Leukocytosis, unspecified type 03/11/2023 12:03 PM EST Scheduled Procedures Name Priority Associated Diagnoses Date/Ti [...] exists LUNG CANCER SCREENING - USE SMARTSET [id number] Completed 02/25/2021, 02/23/2020, 02/16/2019, Additional history exists [...] as of this encounter Visit Diagnoses Diagnosis Leukocytosis, unspecified type Impaired fasting glucose documented in this encounter Care Teams Senior Project Controls Specialist Relationship Specialty Start Date End Date Edelmira Cavanaugh MD [address] [facility] [place] [address] PCP - General Internal Medicine 05/09/21 documented as of this encounter
--- OUTSIDE RECORDS SUMMARY | 2023-05-13 18:45 | External Medical Summary | Summary of Care ---
Author Name Unknown Organization [facility] Address [address] [place] [address] Phone [phone] Care Team Providers Care Contract Administrative Assistant Name Role Phone Edelmira Cavanaugh MD Primary Care Provider [phone] Reason for Referral * Precert (Within 10 days (routine)) - Authorized Specialty Diagnoses / Procedures Referred By Aubrey t Referred To Contact Sleep Disorders Diagnoses Obstructive sleep apnea Nocturnal hypoxemia COPD, group D, by GOLD 2017 classification ([facility]) Dependence on continuous supplemental oxygen Procedures SLEEP STUDY, W/ CPAP (TREATMENT SETTINGS) Janette Sifuentes DO [address] [place] [address] Referral ID Status Reason Start Date Expiration Date V isits Requested Visits Authorized [id number] Authorized 01/15/2023 999 999 * Precert (Within 10 days (routine)) - Authorized Specialty Diagnoses / Procedures Referred By Aubrey austin Referred To Contact Sleep Disorders Diagnoses Obstructive sleep apnea Nocturnal hypoxemia COPD, group D, by GOLD 2017 classification ([facility]) Dependence on continuous supplemental oxygen Procedures SLEEP STUDY, W/O CPAP Janette Sifuentes DO [address] [place] [address] Referral ID Status Reason Start Date Expiration Date V isits Requested Visits Authorized [id number] Authorized 01/15/2023 999 999 Reason for Visit * Reason Comments NEW PATIENT Sleep Apnea * Evaluate & Treat - Unlimited Visits (Within 30 days (routine)) - Authorized Specialty Diagnoses / Procedures Referred By Aubrey t Referred To Contact Sleep Medicine / Sleep Disorders Diagnoses COPD, group D, by GOLD 2017 classification (HCC) Nocturnal hypoxemia Edelmira Cavanaugh MD [address] [place] [address] Referral ID Status Reason Start Date Expiration Date Visits Requested Visits Authorized [id number] Authorized Specialty Services Required 01/08/2023 2 2 Encounter Details Date Type Department Care Team Description 01/15/2023 Office Visit [facility] [address] [place] [id number] Janette Sifuentes DO [address] [place] [address] Obstructive sleep apnea*; Nocturnal hypoxemia; COPD, group D, by GOLD 2017 classification (HCC); Dependence on continuous supplemental oxygen Allergies Active Allergy Reactions Severity Noted Date Comments Levofloxacin Other (Please comment) Low 10/18/2021 Rash documented as of this encounter (statuses as of 01/23/2023) Medications Medication Sig Dispensed Refills Start Date [...] by mouth as needed. 0 3 Active Metoprolol Succinate ER 25 MG Oral Tablet Extended Release 24 Hour (toPROL XL) Take 0.5 Tablets by mouth at bedtime. 0 3 Active Rosuvastatin Calcium 20 MG Oral Tablet (Crestor)Indication s:Dyslipidemia, goal LDL below 100 TAKE 1 TABLET BY MOUTH IN THE MORNING 90 Tablet 3 04/19/202 3 Active Zoster Vac Recomb Adjuvanted 50 [...] :COPD, group D, by GOLD 2017 classification ([facility]) Inhale 2 Puffs by mouth every 4 hours as needed for Cough, Shortness of Breath or Wheezing. 54 g 3 3 Active Cyclobenzaprine HCl 10 MG Oral Tablet (Flexeril) Take 1 Tablet by mouth every 6 hours as needed for Muscle spasms. 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 15 g 12 3 Active Levalbuterol HCl 1.25 MG/3ML Inhalation Nebulization SolutionIndications :COPD, group D, by GOLD 2017 classification ([facility]),COPD exacerbation ([facility]) Inhale 3 mL via nebulizer every 8 hours as needed for Wheezing. 120 mL 5 3 Active Fluticasone-Umeclid in-Vilant 100-62.5-25 MCG/INH Aerosol Powder Breath Activated (TRELEGY ellipta) Inhale by mouth 1 Puff in the morning. Please rinse mouth out after use.. 180 Blister Dosing Unit 3 2 01/21/20 23 Discontinu ed(Refill) Hospital, Clinic, or Other Facility Administered Medication Ordered Dose Route Frequency Start Date End Date Status Albuterol Sulfate (Proventil) (5 MG/ML) 0.5% *conc* inhalation solution 2.5 mgIndications:COPD, group D, by GOLD 2017 classification ([facility]),History of 2019 novel coronavirus disease (COVID-19) 2.5 mg NEBULIZER PRN 07/08/2022 07/08/2023 Active Albuterol Sulfate (Proventil) (2.5 MG/3ML) 0.083% inhalation solution 2.5 mgIndications:COPD, group D, by GOLD 2017 classification ([facility]),History of 2019 novel coronavirus disease (COVID-19) 2.5 mg NEBULIZER PRN 07/08/2022 07/08/2023 Active documented as of this encounter (statuses as of 01/23/2023) Active Problems Problem Noted Date Dependence on continuous supplemental ox ygen 06/16/2022 Nocturnal hypoxemia 10/18/2021 Overview: Wearing 2 LPM via NC overnight Multiple lung nodules 03/12/2021 Migraine without aura and without status migrainosus, not intractable 11/08/2019 Centrilobular emphysema 08/11/[address] of the chest 08/11/2018 COPD, group D, by GOLD 2017 classificati on 02/10/2018 Bronchiectasis without complication 10/2017 RVH (right ventricular hypertrophy) 08/04 Mild obstructive sleep apnea-hypopnea sy ndrome 08/01/2016 Dyslipidemia, goal LDL below 100 014 History of tobacco use 08/10/2013 documented as of this encounter (statuses as of 01/23/2023) Resolved Problems Problem Noted Date Resolved Date Chronic hypoxemic respiratory failure 08/01/2016 08/18/2018 COPD, severe 07/08/2013 02/10/2018 documented as of this encounter (statuses as of 01/23/2023) Immunizations Name Administration Dates Next Due COVID-19 mRNA, LNP-s, No Pre serve, 2-Dose Series ([employer]) 04/23/2021,08/25/2020,08/04/2020 COVID-19, LNP-s, No Preserve , Eddy-sucrose, Ages 12+ ([employer]) 11/04/2021 Pneumococcal Conjugate Vacci ne, 20-valent ([id number]) 12/12/2021 Pneumococcal Polysaccharide PPV23 (Pneumovax) 08/10/2013,03/21/2011(Deferred: Patient [...] 44 Q uit: 06/28/2021 Smokeless Tobacco: Never Tobacco Cessation:Counseling Given: Not Answered Alcohol Use Standard Drinks/Week Comments No 0 (1 standard drink = 0.6 oz pur e alcohol) Food Insecurity Answer Date Recorded Within the past 12 months, y ou worried that your food would run out before you got money to buy more. Never true 11/08/2019 Within the past 12 months, t he food you bought just didn't last and you didn't have money to get more. Never true 11/08/2019 Sex Assigned at Date Recorded Male 07/26/2018 11:36 AM EDT Job Start Date Occupation Industry Not on file Not on file Not on file documented as of this encounter Last Filed Vital Signs Vital Sign Reading Time Taken Comments Blood Pressure 140/60 01/15/2023 9:24 AM EDT Pulse 112 01/15/2023 9:24 AM EDT Temperature 36.3 C (97.3 F) 01/15/2023 9:24 AM ED T Respiratory Rate 16 01/15/2023 9:24 AM EDT Oxygen Saturation 92% 01/15/2023 9:24 AM EDT Inhaled Oxygen Concentration - - Weight 72.1 kg (159 lb) 01/15/2023 9:24 AM EDT Height 168.9 cm (5' 6.5") 01/15/2023 9:24 AM EDT Body Mass Index 25.28 01/15/2023 9:24 AM EDT documented in this encounter Progress Notes * Janette Nedanorman Sifuentes, DO - 01/15/2023 9:42 AM EDT Sleep Medicine Evaluation [address] [address] Consultation was requested by: Dr. Cavanaugh for: JESUS, COPD, nocturnal hypoxemia. and a copy of this report is being sent to the provider electronically. Relevant available records reviewed. HPI: Liang Hodge is a(n) 62 year old male presenting for evaluation and management of JESUS. PSG 07/14/2016 (weight 174 lbs): AHI 10, SpO2 tawanna 79%, time <89% 220.6 min. PLMI 15.6. PLMAI 4.2. CPAP titration study 12/10/2016: CPAP 9 cwp with AHI 2.1, SpO2 <89% 10.6 minutes at final setting.PLMI 6.5. Nocturnal oximetry 09/22/2017 on 2 L/min oxygen: time <90% 3 min 16 sec. SpO2 tawanna 83%. Never started CPAP at home. Hospitalized 01/02/23 - 01/05/23 at [facility] with COPD exacerbation. Noted in discharge summary: "Patientinterested in obtaining CPAP/Bipap for home, but did not qualify for home bipap per overnight oximetry." Sleeping with BiPAP in the hospital, he slept very well, and his oxygen levels looked much better throughout the next day. Using oxygen 2 LPM ATC and 4 LPM with exertion. HR goes up to about 145 sometimes with exertion, when struggling to breathe from the COPD. Patient reports a typical bedtime of around 9 PM. It takes about an hour to fall asleep. (He will play a game on his phone for that time; once he puts the phone down he goes to sleep easily.) Patient awakens 0-1 times overnight. Patient awakens for the day at 8 AM or so, feeling rested. Patient does get sleepy or tired during the day. Patient does sometimes take naps. A couple days a week, refreshing. No interrupting nighttime sleep. Patient does use caffeine, coffee in the morning. The patient reports having ("+" indicates reports, "-" indicates denies): + Snoring: used to snore all the time; nasal strips help. He uses them nightly. - Observed apneas - Choking/gasping awakenings + Mouth breathing - Acid reflux at night occasional Nocturia - Morning headaches Restless Legs Syndrome Symptoms ("+" indicates reports, "-" indicates denies): Sometimes, more if he is low on potassium. + Pain/discomfort in legs at night + Urge to move legs at night + Better with movement + Disrupts sleep Maybe twice a week. Started Flexeril from his recent hospitalization, which has resolved RLS-like sxs. Parasomnias Symptoms ("+" indicates reports, "-" indicates denies): - Sleepwalking - Dream-enactment Excessive Daytime Sleepiness: [place] Sleepiness Scale 9 Modified F.O.S.Q. 35 no Drowsy driving [place] Sleepiness Scale Question 01/15/2023 9:29 AM EDT - Filed by Kait Howell LPN What is the chance you will doze off in the following situation? Sitting and reading No chance of dozing Watching TV Moderate chance of dozing Sitting inactive in a public place, such as a theater or meeting Slight chance of dozing As a passenger in a car for an hour without a break No chance of dozing Lying down to rest in the afternoon when circumstances permit High chance of dozing When sitting and talking to someone No chance of dozing When sitting quietly after lunch without alcohol High chance of dozing In a car, while stopped for a few minutes in traffic No chance of dozing Score (range: 0 - 24) 9 Functional Outcomes Of Sleep Question 01/15/2023 9:30 AM EDT - Filed by Kait Howell LPN Please complete the following questions. Do you have difficulty concentrating because you are sleepy or tired? No Do you have difficulty remembering things because you are sleepy or tired? No Do you have difficulty operating a motor vehicle for short distances (less than 100 miles) because you become sleepy? No Do you have difficulty operating a motor vehicle for long distances (more than 100 miles) because you become sleepy? No Do you have difficulty visiting family or friends in their home because you become sleepy or tired?No Has your relationship with family, friends, or work colleagues been affected because you are sleepyor tired? No Do you have difficulty watching a movie or video because you become sleepy or tired? Yes, moderate Do you have difficulty being as active as you want to be in the evening because you are tired or sleepy? Yes, a little Do you have difficulty being as active as you want to be in the morning because you are tired or sleepy? Yes, a little Has your mood been affected because you are sleepy or tired? Yes, a little Score (range: 10 - 40) 35 PMH: Past Medical History: Diagnosis Date Benign neoplasm of colon 09/01/2013 adenomatous & hyperplastic polyps, repeat 5 yrs COPD, severe (HCC) 07/08/2013 Migraine without aura 04/18/2014 Note: he does not get the migraines anymore. Past Surgical History: Procedure Laterality Date COLONOSCOPY, DIAGNOSTIC (RECTUM) 09/01/2013 adenomatous & hyperplastic polyps, repeat 5 yrs/COLONOSCOPY FLEXIBLE PROXIMAL DIAGNOSTIC performed by Dawood Aguilar MD at ENDOSCOPY [facility] COLONOSCOPY, DIAGNOSTIC (RECTUM) 01/04/2020 diverticulosis, repeat 5 yrs / [facility] COLONOSCOPY, DIAGNOSTIC (RECTUM) 01/04/2020 normal, repeat 5 yrs / [facility] REPAIR SHOULDER CUFF AVULSION Right WRIST ARTHROSCOPY/SURGERY 04/06/1994 fx right ALLERGIES: Review of patient's allergies indicates: Allergen Reactions Levaquin [Levofloxacin] Other (Please comment) Rash MEDS: Outpatient Medications Marked as Taking for the 01/15/23 encounter (Office Visit) with Janette Sifuentes, DO Medication Sig Levalbuterol HCl 1.25 MG/3ML Inhalation Nebulization Solution Inhale 3 mL via nebulizer every 8 hours as needed for Wheezing. Levalbuterol Tartrate 45 MCG/ACT Inhalation Aerosol (Xopenex HFA) Inhale 1 Puff by mouth every 4 hours as needed for Wheezing. Cyclobenzaprine HCl 10 MG Oral Tablet (Flexeril) Take 1 Tablet by mouth every 6 hours as needed forMuscle spasms. Albuterol Sulfate HFA 108 (90 Base) MCG/ACT Inhalation Aerosol Solution Inhale 2 Puffs by mouth every 4 hours as needed for Cough, Shortness of Breath or Wheezing. Jublia 10 % External Solution (Efinaconazole) Apply topically to affected area 2 times a day. Applyto toe nails Terbinafine HCl 1 % External Cream (LamISIL AT ATHLETE'S FOOT) Apply topically to affected area 2 times a day. Apply to both feet Zoster Vac Recomb Adjuvanted 50 MCG/0.5ML Intramuscular Suspension Reconstituted (Shingrix) Inject 0.5 mL into a large muscle now and repeat dose in 60 to 180 days Rosuvastatin Calcium 20 MG Oral Tablet (Crestor) TAKE 1 TABLET BY MOUTH IN THE MORNING guaiFENesin ER 600 MG Oral Tablet Extended Release 12 Hour Take 1 Tablet by mouth as needed. Metoprolol Succinate ER 25 MG Oral Tablet Extended Release 24 Hour (toPROL XL) Take 0.5 Tablets by mouth at bedtime. oxygen IN GAS 2 LPM via NC continuously Gicmqocjgze-Xcozxeuwq-Whneek 100-62.5-25 MCG/INH Aerosol Powder Breath Activated (TRELEGY ellipta) Inhale by mouth 1 Puff in the morning. Please rinse mouth out after use.. Acetaminophen 500 MG Oral Tablet (Tylenol) Take 1-2 Tablets by mouth every 8 hours as needed for Fever >38C(100.5F), Pain, Mild or Pain, Moderate. Multiple Vitamin (ONE-A-DAY MENS) Tablet Take 1 Tablet by mouth in the morning. aspirin enteric coated 81 MG TBEC Take 1 Tab by mouth daily. Current Facility-Administered Medications for the 01/15/23 encounter (Office Visit) with Janette Sifuentes, DO Medication Albuterol Sulfate (Proventil) (2.5 MG/3ML) 0.083% inhalation solution 2.5 mg Albuterol Sulfate (Proventil) (5 MG/ML) 0.5% *conc* inhalation solution 2.5 mg FHx: no known family history of sleep disordered breathing Social hx: Tobacco Use: Medium Risk Smoking Tobacco Use: Former Smokeless Tobacco Use: Never Passive Exposure: Not on file Alcohol use: none Drug use: none PE: VITAL SIGNS: Filed Vitals: 01/15/23 0924 BP: 140/60 Pulse: 112 Resp: 16 Temp: 36.3 C (97.3 F) TempSrc: Tympanic SpO2: 92% Weight: 72.1 kg (159 lb) Height: 1.689 m (5' 6.5") Body mass index is 25.28 kg/m. GEN: Seated in wheelchair (he states he only uses for longer distances), non- obese, NAD ORAL: Hard palate normal Oral mucous membranes moist OP: No thrush or lesions Uvula normal Soft palate normal Mallampati III NECK: Circumference not enlarged RESP: Unlabored respirations Breath sounds clear, no wheezes or rales, diminished at bases. CVS: Tachycardic, regular rhythm NEURO: Speech clear and appropriate IMPRESSION/RECOMMENDATIONS: Hx JESUS, mild per 2017 PSG, untreated - agree with need to be treating the sleep apnea. I expect that updated sleep apnea testing will berequired in order to have tx covered by insurance, thus we will plan to re-evaluate with updated PSG. - Discussed the pathophysiology, implications on short- and long-term health, diagnostic evaluation, and likely treatment options of JESUS - Schedule an overnight PSG - split night protocol if meets criteria. In-lab study recommended due to COPD. - Avoid driving when sleepy/drowsy. Follow Up: Return for 2-3 weeks after PSG. | For: 2-3 weeks after PSG | Check- out note: PSG [facility]; f/u after for results. Janette Sifuentes DO documented in this encounter Nursing Notes * Kait Howell LPN - 01/15/2023 9:27 AM EDT Chief Complaint Patient presents with NEW PATIENT Sleep Apnea PSG: approx 4 yrs ago No Cpap Neck: 14.5" [place] Sleepiness Scale Question 01/15/2023 9:29 AM EDT - Filed by Kait Howell LPN What is the chance you will doze off in the following situation? Sitting and reading No chance of dozing Watching TV Moderate chance of dozing Sitting inactive in a public place, such as a theater or meeting Slight chance of dozing As a passenger in a car for an hour without a break No chance of dozing Lying down to rest in the afternoon when circumstances permit High chance of dozing When sitting and talking to someone No chance of dozing When sitting quietly after lunch without alcohol High chance of dozing In a car, while stopped for a few minutes in traffic No chance of dozing Score (range: 0 - 24) 9 Functional Outcomes Of Sleep Question 01/15/2023 9:30 AM EDT - Filed by Kait Howell LPN Please complete the following questions. Do you have difficulty concentrating because you are sleepy or tired? No Do you have difficulty remembering things because you are sleepy or tired? No Do you have difficulty operating a motor vehicle for short distances (less than 100 miles) because you become sleepy? No Do you have difficulty operating a motor vehicle for long distances (more than 100 miles) because you become sleepy? No Do you have difficulty visiting family or friends in their home because you become sleepy or tired?No Has your relationship with family, friends, or work colleagues been affected because you are sleepyor tired? No Do you have difficulty watching a movie or video because you become sleepy or tired? Yes, moderate Do you have difficulty being as active as you want to be in the evening because you are tired or sleepy? Yes, a little Do you have difficulty being as active as you want to be in the morning because you are tired or sleepy? Yes, a little Has your mood been affected because you are sleepy or tired? Yes, a little Score (range: 10 - 40) 35 documented in this encounter Plan of Treatment Scheduled Orders Name Type Priority Associated Diagnoses Orde r Schedule SLEEP STUDY, W/O CPAP Procedures Routine Obstructive sleep apnea Nocturnal hypoxemia COPD, group D, by GOLD 2017 classification (HCC) Dependence on continuous supplemental oxygen Ordered: 01/15/2023 SLEEP STUDY, W/ CPAP (TREATMENT SETTINGS) Procedures Routine Obstructive sleep apnea Nocturnal hypoxemia COPD, group D, by GOLD 2017 classification (HCC) Dependence on continuous supplemental oxygen Ordered: 01/15/2023 Scheduled Procedures Name Priority Associated Diagnoses Date/Ti [...] exists LUNG CANCER SCREENING - USE SMARTSET [id number] Completed 02/25/2021, 02/23/2020, 02/16/2019, Additional history exists [...] as of this encounter Visit Diagnoses Diagnosis Obstructive sleep apnea- Primary Obstructive sleep apnea (adult) (pediatric) Nocturnal hypoxemia Hypoxemia COPD, group D, by GOLD 2017 classification (HCC) Dependence on continuous supplemental oxygen documented in this encounter Care Teams Contract Administrative Assistant Relationship Specialty Start Date End Date Edelmira Cavanaugh MD [address] [place] [address] PCP - General Internal Medicine 05/09/21 documented as of this encounter
--- OUTSIDE RECORDS SUMMARY | 2023-05-13 18:46 | External Medical Summary ---
Author Name Unknown Address Unknown Organization K09:[facility] [address] [address] Laboratory Report Ordering Provider Test Date Status ROSE MARIE 01/08/2023 12:15:23 Final Observation Date Value Abnormality Reference (Units ) Status SYNC LEUKOCYTES IN BLOOD BY AUTOMATED COUNT 01/08/2023 12:15:23 16.84 Above high normal 4.00-10.80 (K/uL) Final Neutrophils/100 leukocytes in Blood by Manual count 01/08/2023 12:15:23 71.0 40.0-75.0 (%) Final Lymphocytes/100 leukocytes in Blood by Manual count 01/08/2023 12:15:23 14.0 Below low normal 18.0-42.0 (%) Final Monocytes/100 leukocytes in Blood by Manual count 01/08/2023 12:15:23 9.0 1.0-11.0 (%) Final Eosinophils/100 leukocytes in Blood by Manual count 01/08/2023 12:15:23 5.0 0.0-6.0 (%) Final Metamyelocytes/100 leukocytes in Blood by Manual count 01/08/2023 12:15:23 1.0 Above high normal <=0.0 (%) Final Neutrophils [#/volume] in Blood by Manual count 01/08/2023 12:15:23 11.96 Above high normal 1.80-7.70 (K/uL) Final Lymphocytes [#/volume] in Blood by Manual count 01/08/2023 12:15:23 2.36 1.00-4.80 (K/uL) Final Monocytes [#/volume] in Blood by Manual count 01/08/2023 12:15:23 1.52 Above high normal 0.00-1.10 (K/uL) Final Eosinophils [#/volume] in Blood by Manual count 01/08/2023 12:15:23 0.84 Above high normal 0.00-0.70 (K/uL) Final Metamyelocytes [#/volume] in Blood by Manual count 01/08/2023 12:15:23 0.17 Above high normal <=0.00 (K/uL) Final Nucleated erythrocytes/100 leukocytes [Ratio] in Blood by Automated count 01/08/2023 12:15:23 Final Performing Location [facility] [address] [place] [address]
--- OUTSIDE RECORDS SUMMARY | 2023-05-13 18:46 | External Medical Summary | Summary of Care ---
Author Name Unknown Organization [facility] Address [address] [place] [address] Phone [phone] Care Team Providers Care Esthetician Facialist Name Role Phone Edelmira Cavanaugh MD Primary Care Provider [phone] Reason for Visit * Reason Comments Outpatient Testing Encounter Details Date Type Department Care Team Description 01/08/2023 Laboratory Laboratory [facility] [address] [place] [address] [facility] [address] [place] [id number] Dyslipidemia, goal LDL below 100; Impaired fasting glucose; Leukocytosis, unspecified type Allergies Active Allergy Reactions Severity Noted Date Comments Levofloxacin Other (Please comment) Low 10/18/2021 Rash documented as of this encounter (statuses as of 01/08/2023) Medications Medication Sig Dispensed Refills Start Date [...] Pain, Mild or Pain, Moderate. 0 Active Fluticasone-Umeclidi n-Vilant 100-62.5-25 MCG/INH Aerosol Powder Breath Activated (TRELEGY ellipta) Inhale by mouth 1 Puff in the morning. Please rinse mouth out after use.. 180 Blister Dosing Unit 3 10/18/2021 Active oxygen IN GAS 2 LPM via [...] COPD, group D, by GOLD 2017 classification ([facility]) Inhale 2 Puffs by mouth every 4 hours as needed for Cough, Shortness of Breath or Wheezing. 54 g 3 12/23/2022 Active Cyclobenzaprine HCl 10 MG Oral Tablet (Flexeril) Take 1 Tablet by mouth every 6 hours as needed for Muscle spasms. 0 Active Amoxicillin-Pot Clavulanate 875-125 MG Oral Tablet TAKE 1 TABLET BY MOUTH TWICE DAILY WITH MEALS FOR 4 DAYS 0 01/05/2023 Active Levalbuterol Tartrate 45 MCG/ACT Inhalation Aerosol (Xopenex HFA)Indications:COPD , group D, by GOLD 2017 classification ([facility]),COPD exacerbation ([facility]) Inhale 1 Puff by mouth every 4 hours as needed for Wheezing. 15 g 12 01/08/2023 Active Levalbuterol HCl 1.25 MG/3ML Inhalation Nebulization SolutionIndications: COPD, group D, by GOLD 2017 classification ([facility]),COPD exacerbation ([facility]) Inhale 3 mL via nebulizer every 8 hours as needed for Wheezing. 120 mL 5 01/08/2023 Active Hospital, Clinic, or Other Facility Administered Medication Ordered Dose Route Frequency Start Date End Date Status Albuterol Sulfate (Proventil) (5 MG/ML) 0.5% *conc* inhalation solution 2.5 mgIndications:COPD, group D, by GOLD 2017 classification ([facility]),History of 2019 novel coronavirus disease (COVID-19) 2.5 mg NEBULIZER PRN 07/08/2022 07/08/2023 Active Albuterol Sulfate (Proventil) (2.5 MG/3ML) 0.083% inhalation solution 2.5 mgIndications:COPD, group D, by GOLD 2017 classification ([facility]),History of 2019 novel coronavirus disease (COVID-19) 2.5 mg NEBULIZER PRN 07/08/2022 07/08/2023 Active documented as of this encounter (statuses as of 01/08/2023) Active Problems Problem Noted Date Dependence on [...] as of this encounter (statuses as of 01/08/2023) Resolved Problems Problem Noted Date Resolved Date Chronic hypoxemic respiratory failure 08/01/2016 08/18/2018 COPD, severe 07/08/2013 02/10/2018 documented as of this encounter (statuses as of 01/08/2023) Immunizations Name Administration Dates Next Due COVID-19 mRNA, LNP-s, No Pre serve, 2-Dose Series (WikiYou) 04/23/2021,08/25/2020,08/04/2020 COVID-19, LNP-s, No Preserve , Eddy-sucrose, Ages 12+ (Pfizer) 11/04/2021 Pneumococcal Conjugate Vacci ne, 20-valent ([id number]) 12/12/2021 Pneumococcal Polysaccharide PPV23 (Pneumovax) 08/10/2013,03/21/2011(Deferred: Patient [...] as of this encounter Plan of Treatment Upcoming Encounters Date Type Specialty Care Team Description 01/15/2023 Office Visit Sleep Disorders Janette Sifuentes, DO [address] [place] [id number] 01/20/2023 Office Visit Pulmonary Stevie Guille, DO [address] [facility] [place] [phone] Pending Results Name Type Priority Associated Diagnoses Date /Time COMPREHENSIVE METABOLIC PANEL Lab Routine Dyslipidemia, goal LDL below 100 01/08/2023 12:15 PM EDT LIPID PANEL WITH DIRECT LDL IF TG IS HIGH Lab Routine Dyslipidemia, goal LDL below 100 01/08/2023 12:15 PM EDT HEMOGLOBIN A1C Lab Routine Impaired fasting glucose 01/08/2023 12:15 PM EDT CBC WITH WBC DIFFERENTIAL Lab Routine Leukocytosis, unspecified type 01/08/2023 12:15 PM EDT CBC Lab Routine Leukocytosis, unspecified type 01/08/2023 12:15 PM EDT DIFFERENTIAL, AUTOMATED Lab Routine Leukocytosis, unspecified type 01/08/2023 12:15 PM EDT Scheduled Procedures Name Priority Associated Diagnoses Date/Ti me COLONOSCOPY FLEXIBLE PROXIMAL DIAGNOSTIC Recall History of colon polyps Health Maintenance Due Date Last Done Comments *ADVANCE DIRECTIVE NOT ON FILE 09/18/2018 COVID-19 Vaccine ( season) 2022 11/04/2021, 04/23/2021, 08/25/2020, Additional history exists DTaP,Tdap,and Td Vaccines (2 - Td or Tdap) 07/09/2023 07/08/2013 Depression Screening 12/03/2023 12/02/2022 O2 ASSESSMENT COMPLETED IN PAST YEAR FOR COPD 12/03/2023 12/02/2022 COLONOSCOPY-EVERY 5 YRS AGES 18-100 01/03/2025 01/04/2020, 09/01/2013, 09/01/2013 Diabetes Screening 06/20/2025 06/20/2022, 1 04/22/2021, 06/07/2021, Additional history exists Lipid Panel 06/21/2027 06/20/2022, 03/0 07/2021, 11/08/2020, Additional history exists LUNG CANCER SCREENING - USE SMARTSET [id number] Completed 02/25/2021, 02/23/2020, 02/16/2019, Additional history exists [...] as of this encounter Visit Diagnoses Diagnosis Dyslipidemia, goal LDL below 100 Other and unspecified hyperlipidemia Impaired fasting glucose Leukocytosis, unspecified type documented in this encounter Care Teams Esthetician Facialist Relationship Specialty Start Date End Date Edelmira Cavanaugh MD [address] [place] [phone] PCP - General Internal Medicine 05/09/21 documented as of this encounter
--- OUTSIDE RECORDS SUMMARY | 2023-05-13 18:46 | External Medical Summary | Summary of Care ---
Author Name Unknown Organization [facility] Address [address] [place] [address] Phone [phone] Care Team Providers Care Aging Box Hand Name Role Phone Edelmira Cavanaugh MD Primary Care Provider [phone] Reason for Visit * Reason Comments Follow Up Encounter Details Date Type Department Care Team Description 01/20/2023 Office Visit Pulmonary Medicine, [facility] [address] [place] [address] Guille Hubbard DO [address] [place] [address] COPD, group D, by GOLD 2017 classification (HCC)*; Bronchiectasis without complication (HCC); Lung nodules; History of tobacco use; Nocturnal hypoxemia; Ground glass opacity present on imaging of lung; Chronic respiratory failure with hypoxia (HCC); Mild obstructive sleep apnea-hypopnea syndrome Allergies Active Allergy Reactions Severity Noted Date Comments Levofloxacin Other (Please comment) Low 10/18/2021 Rash documented as of this encounter (statuses as of 01/20/2023) Medications Medication Sig Dispensed Refills Start Date [...] :COPD, group D, by GOLD 2017 classification ([facility]) Inhale 2 Puffs by mouth every 4 hours as needed for Cough, Shortness of Breath or Wheezing. 54 g 3 3 Active Cyclobenzaprine HCl 10 MG Oral Tablet (Flexeril) Take 1 Tablet by mouth every 6 hours as needed for Muscle spasms. 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 15 g 12 3 Active Levalbuterol HCl 1.25 MG/3ML Inhalation Nebulization SolutionIndications :COPD, group D, by GOLD 2017 classification ([facility]),COPD exacerbation ([facility]) Inhale 3 mL via nebulizer every 8 hours as needed for Wheezing. 120 mL 5 3 Active Fluticasone-Umeclid in-Vilant 100-62.5-25 MCG/ACT Aerosol Powder Breath Activated (Trelegy Ellipta) Inhale 1 Puff by mouth in the morning. Please rinse mouth and gargle with water after use.. 180 Blister Dosing Unit 3 3 Active Fluticasone-Umeclid in-Vilant 100-62.5-25 MCG/INH Aerosol [...] mgIndications:COPD, group D, by GOLD 2017 classification ([facility]),History of 2019 novel coronavirus disease (COVID-19) 2.5 mg NEBULIZER PRN 07/08/2022 07/08/2023 Active Albuterol Sulfate (Proventil) (2.5 MG/3ML) 0.083% inhalation solution 2.5 mgIndications:COPD, group D, by GOLD 2017 classification ([facility]),History of 2019 novel coronavirus disease (COVID-19) 2.5 mg NEBULIZER PRN 07/08/2022 07/08/2023 Active documented as of this encounter (statuses as of 01/20/2023) Active Problems Problem Noted Date Dependence on [...] as of this encounter (statuses as of 01/20/2023) Resolved Problems Problem Noted Date Resolved Date Chronic hypoxemic respiratory failure 08/01/2016 08/18/2018 COPD, severe 07/08/2013 02/10/2018 documented as of this encounter (statuses as of 01/20/2023) Immunizations Name Administration Dates Next Due COVID-19 mRNA, LNP-s, No Pre serve, 2-Dose Series (Pfizer) 04/23/2021,08/25/2020,08/04/2020 COVID-19, LNP-s, No Preserve , Eddy-sucrose, Ages 12+ (Pfizer) 11/04/2021 Pneumococcal Conjugate Vacci ne, 20-valent ([id number]) 12/12/2021 Pneumococcal Polysaccharide PPV23 (Pneumovax) 08/10/2013,03/21/2011(Deferred: Patient [...] Sign Reading Time Taken Comments Blood Pressure 122/72 01/20/2023 9:30 AM EDT Pulse 104 01/20/2023 9:30 AM EDT Temperature 36.3 C (97.3 F) 01/20/2023 9:30 AM ED T Respiratory Rate - - Oxygen Saturation 95% 01/20/2023 9:30 AM EDT 2 LPM Inhaled Oxygen Concentration - - Weight 74 kg (163 lb 0.6 oz) 01/20/2023 9:30 AM EDT Height - - Body Mass Index 25.92 01/15/2023 9:24 AM EDT documented in this encounter Progress Notes * Guille Hubbard, DO - 01/20/2023 9:40 AM EDT PULMONARY CLINIC FOLLOW UP NOTE REFERRING PROVIDER: Edelmira Cavanaugh MD REASON FOR FOLLOW UP: "COPD, severe (HCC) [J44.9]" [facility] AERONAUTICAL TEST ENGINEER: ANNETTE Jay - last seen 07/08/2022 BACKGROUND: 62 year old with past medical history significant for prior cigarette smoking (1 pack cigarettes per day X 44 years. Quit June 2021), COPD with radiographic emphysema, bronchiectasis, chronic hypoxemic respiratory failure, pulmonary nodules, JESUS (followed by [facility]), migraines, dyslipidemia. INTERIM EVENTS / ROS: Feeling "Really good" + emergent PCP or ED visits for respiratory issues recently He notes he was admitted to [facility] 01/02/2023 - 01/05/2023 for COPD exacerbation and acute on chronic hypoxemic respiratory failure which returned to baseline by the end of the hospital stay. He also notes "They put me on a CPAP and it was the best thing for me" - He notes he is pending an outPt sleep study While using Supp O2 @ 2 LPM ATC No shortness of breath at rest or conversational dyspnea No orthopnea + dyspnea on exertion "If I walk up a flight of steps, I'm done" "Walking from here to the door where you come in at, I'd be huffing and puffing" + cough productive of "White or yellow sticky stuff" sputum - Occurs after flutter treatment No hemoptysis No wheeze or chest tightness No chest pain or palpitations No edema No syncope or presyncopal symptoms No fevers, chills, sweats Appetite & weight "I can eat. Actually, I have lost weight since last year. I weighed 170, but I got sick and it went down. It fluctuates" Supplemental oxygen: Has a POC. Awake/rest: 2 liters/minute Exercise: 2 liters/minute "When I walk, I'm supposed to turn it up to 4, but I don't" Sleep: 2 liters/minute PAP: Being evaluated by Sleep Medicine, pending a sleep study Denies environmental allergies/rhinosinus disease No GERD symptoms Pulmonary hygiene: Flutter Inhaled medications: Trelegy 100/62.5/25 daily - Using P.r.n. Albuterol HFA. Using Once a day" P.r.n. Levalbuterol HFA versus nebulizer. Using Usually once a day" - Feels it "Really does" help Past Medical History: Diagnosis Date Benign neoplasm of colon 09/01/2013 adenomatous & hyperplastic polyps, repeat 5 yrs Bronchiectasis without complication (HCC) 02/10/2018 Centrilobular emphysema (HCC) 08/11/2018 COPD, severe (HCC) 07/08/2013 Dependence on continuous supplemental oxygen 06/16/2022 Dyslipidemia, goal LDL below 100 09/13/2013 Migraine without aura 04/18/2014 Mild obstructive sleep apnea-hypopnea syndrome 08/01/2016 Multiple lung nodules 03/12/2021 Review of patient's allergies indicates: Allergen Reactions Levaquin [Levofloxacin] Other (Please comment) Rash Current Outpatient Medications Medication Sig Dispense Refill aspirin enteric coated 81 MG TBEC Take 1 Tab by mouth daily. 100 Tab 3 Multiple Vitamin (ONE-A-DAY MENS) Tablet Take 1 Tablet by mouth in the morning. Acetaminophen 500 MG Oral Tablet (Tylenol) Take 1-2 Tablets by mouth every 8 hours as needed for Fever >38C(100.5F), Pain, Mild or Pain, Moderate. [id number]-[id number] 100-62.5-25 MCG/INH Aerosol Powder Breath Activated (TRELEGY [...] of Breath or Wheezing. 54 g 3 Cyclobenzaprine HCl 10 MG Oral Tablet (Flexeril) Take 1 Tablet by mouth every 6 hours as needed forMuscle spasms. Amoxicillin-Pot Clavulanate 875-125 MG Oral Tablet TAKE 1 TABLET BY MOUTH TWICE DAILY WITH MEALS FOR 4 DAYS (Patient not taking: Reported on 01/15/2023) Levalbuterol Tartrate 45 MCG/ACT Inhalation Aerosol (Xopenex HFA) Inhale 1 Puff by mouth every 4 hours as needed for Wheezing. 15 g 12 Levalbuterol HCl 1.25 MG/3ML Inhalation Nebulization Solution Inhale 3 mL via nebulizer every 8 hours as needed for Wheezing. 120 mL 5 Current Facility-Administered Medications Medication Dose Route Frequency Provider Last Rate Last Admin Albuterol Sulfate (Proventil) (5 MG/ML) 0.5% *conc* inhalation solution 2.5 mg 2.5 mg Nebulizer FLOWERjohn ANNETTE Gore Albuterol Sulfate (Proventil) (2.5 MG/3ML) 0.083% inhalation solution 2.5 mg 2.5 mg Nebulizer KEATON Mari ANNETTE Gore SOCIAL HISTORY Pulmonary History: Former smoker: 44 pack-years. 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 Stationed in the [employer] Pets: Dog. Previous bird Mold: No Humidifier: Yes. "Just cleaned" per his PHYSICAL EXAM: BP 122/72 (BP Site: Left Arm, BP Position: Sitting, BP Cuff Size: Regular) | Pulse 104 | Temp 36.3 C (97.3 F) (Tympanic) | Wt 74 kg (163 lb 0.6 oz) | SpO2 95% Comment: 2 LPM | BMI 25.92 kg/m | BSA 1.86 m General: Chronically ill, but in no acute distress. In a wheelchair. Speaks in full sentences, without conversational dyspnea, while on supplemental oxygen at 2 liters/minute via portable oxygen concentrator. One episode of productive sounding cough during interview. Eyes: EOMI, Conjunctiva are pink and non-injected, sclera clear Ears: External ears normal in shape and color Nose: Nasal cannula in place. No mucosal erythema, no mucosal edema, no purulent discharge Oropharynx: No exudate, no erythema, lips, buccal mucosa, and tongue normal, MMM. Neck: No bruits. No stridor. Lymph: No palpable cervical or supraclavicular lymphadenopathy Heart: Distant but regular. Soft systolic murmur Lungs: Fair air movement bilaterally. No true crackles, rhonchi, wheeze, though coarse inspiratory noises bilaterally. Pulses: palpable in Bilateral lower extremmities Abdomen: Soft, non-tender and normal bowel sounds Extremities: No edema, no cyanosis Neurologic: Alert & oriented x 3 with fluent speech, no focal motor/sensory deficits. I did notask him to stand from the wheelchair. Skin: No rashes or significant lesions on the exposed skin Clinician interpretation of Pulmonary Function Tests: 09/24/2021: Baseline spirometry shows very severe airflow obstruction as per ATS criteria. Following bronchodilator, there is no significant change. If the patient carries a clinical diagnosis of COPD, the degree of airflow obstruction is severe as per GOLD criteria. Lung volumes suggest the presence of air trapping. Expiratory reserve volume is low. Uncorrected Diffusion Capacity (DLCO) is severely decreased at 35% predicted. The flow loop is consistent obstruction. Clinician interpretation of Chest X-ray: 02/24/2022: Flattened hemidiaphragms bilaterally. Emphysematous changes. No gross infiltrates or significant pleural disease. Cardiomediastinal silhouette unremarkable. When compared to prior chest x-ray 02/09/2022, technique differs and lower zone vague opacities are no longer apparent on the present film. Clinician interpretation of Chest CT scan: 06/20/2022: Low-dose chest CT: IMPRESSION: 1. LungRADS Category 2: Negative, benign appearance or behavior. 2. LungRADS Category S: Negative. No new/unknown potentially significant incidental findings requiring additional evaluation. 3. Incidental findings as above." -- Significant panlobular and bullous emphysema. In the right upper lobe, there is an ill-defined 15 X 7.7 mm mixed density (soft tissue and ground-glass) nodule (image 70/351). Areas of peribronchial thickening and mild bronchiectasis. Scattered areas of linear atelectasis. Motion artifact obscures the lung bases. Scattered centrilobular nodules, worst in the lower lung lam. 15.2 mm thin-walled cyst in the left lower lobe. No significant mediastinal or hilar adenopathy. When compared to prior chest CT 03/24/2022, the ill-defined right upper lobe supra cm pulmonary nodule is new. Echocardiogram: 08/29/2021: Dobutamine stress echocardiogram: No evidence of ischemia. LV wall motion with stress is inadequately assessed. No symptoms suggestive of angina were noted. LV EF 50-54%. Mild diffuse LV hypokinesis. 07/25/2021: LV cavity size normal. LV wall thickness borderline increased, concentric. Mild diffuseLV hypokinesis. LV EF 50%. LV diastolic function mildly abnormal, grade 1. No significant valvular disease. No evidence of pulmonary hypertension. RV cavity size and systolic function normal. Atrial size normal. No pericardial effusion. PA acceleration time 0.10 seconds. Assessment: COPD with radiographic emphysema Tobacco abuse: 44 pack year cigarette smoking. 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 Notes exposures to fumes and dust. Secondhand smoke exposure: is a smoker - Trying to quit. She now smokes outside Abnormal pulmonary function testing: Very severe airflow obstruction ATS criteria, severe airflow obstruction per GOLD criteria. No significant bronchodilator response Evidence of air trapping and low expiratory reserve volume Severely decreased uncorrected Diffusion Capacity (DLCO) Abnormal chest CT: Severe panlobular emphysema/bullous emphysema Pulmonary nodules: Measuring up to 15 mm in the right upper lobe, 1st seen on CT 06/20/2022 [facility]. Cardiovascular: Mild LV hypokinesis Grade 1 diastolic dysfunction Recommendations and Plans: He should continue to remain smoke free Pulmonary function testing: None further needed for now Chest imaging: We discussed checking a noncontrast chest CT for further evaluation of the vague supra cm right upper lobe opacity seen on low-dose CT 06/20/2022. We discussed that malignancy/cancer can not be entirely excluded. However, the patient prefers to continue with low-dose chest CT scans as directed by the [facility] Cancer screening program, rather than updating his scan now. Per this program, he is next due for a CT June 2023. Continue low-dose chest CT scans as directed by the [facility] Lung Cancer screening program. He is enrolled Bronchoscopy/tissue sampling: None ordered. However, this may need to be reconsidered based on results of follow-up CT, as above Cardiac testing: None ordered Inhaled medications: Continue without change Trelegy 100/62.5/25 daily P.r.n. Albuterol HFA. P.r.n. Levalbuterol HFA versus nebulizer. Supplemental oxygen: Has a portable oxygen concentrator Awake/rest: 2 liters/minute Exertion: 2 liters/minute Sleep: 2 liters/minute PAP: Being worked up for possible PAP therapy, by sleep medicine. Pending a sleep study Pulmonary hygiene: Continue flutter therapy: Ideally 4 times per day, 5 minutes per occurrence Regular aerobic exercise is recommended. Pulmonary rehabilitation: We discussed referral to pulmonary rehabilitation. We discussed the pros/cons of pulmonary rehabilitation including it is likely benefit to his dyspnea, difficulty with ambulation, etcetera. However,the patient deferred referral to pulmonary rehabilitation at this time. This can be reconsidered during follow-up visits. We did discuss that he will likely require updated PFTs, and possibly ECG in order to qualify for pulmonary rehabilitation, if/when he would like to enroll. Labs: 01/20/2023: Ordered an Alpha-1 antitrypsin level to be drawn with his next routine labs Specialty follow-up: [facility] Lung Cancer screening program, as directed Sleep medicine, as directed Primary care provider/referring provider should consider/facilitate the following: Keep respiratory vaccinations up-to-date Keep all age-appropriate cancer screening up-to-date He is enrolled in the [facility] Lung Cancer screening program The patient should avoid secondhand smoke exposure and use proper personal protective equipment anytime exposed to smoke, fumes, dust, chemicals, particulate matter, etc. No pulmonary contraindication to regular aerobic exercise, which is encouraged. All questions from the patient were answered. Follow Up: Return in about 6 months (around 07/22/2023). Guille Hubbard DO [facility] Pulmonary Medicine, [address] [address] This note was completed using voice recognition software. Please excuse any word substitutions/deletions or similar errors documented in this encounter Nursing Notes * Kait Fischer CMA - 01/20/2023 9:32 AM EDT Interm History/Respiratory Symptoms Cough: once and a while Hemoptysis: Sinus Symptoms: none Hospitalizations: 3 weeks ago at [facility] [place] like lungs were filling up was in for 4 days ED Trips: none Triggers: cigarette smoking Nocturnal: CPAP/BiPAP/O2: 2 LPM continuous Flu Vaccine: yes Pneumovax: Prevnar: COVID 19: documented in this encounter Plan of Treatment Scheduled Orders Name Type Priority Associated Diagnoses Orde r Schedule [id number] , QN Lab Routine COPD, group D, by GOLD 2017 classification (HCC) Bronchiectasis without complication (HCC) Lung nodules History of tobacco use Nocturnal hypoxemia Ground glass opacity present on imaging of lung Chronic respiratory failure with hypoxia (HCC) Mild obstructive sleep apnea-hypopnea syndrome Expected: 04/22/2023 (Approximate), Expires: 01/21/2024 Scheduled Procedures Name Priority Associated Diagnoses Date/Ti me COLONOSCOPY FLEXIBLE PROXIMAL DIAGNOSTIC Recall History of colon polyps Health Maintenance Due Date Last Done Comments *ADVANCE DIRECTIVE NOT ON FILE 09/18/2018 COVID-19 Vaccine (2022- season) 2022 11/04/2021, 04/23/2021, 08/25/2020, Additional history exists DTaP,Tdap,and Td Vaccines (2 - Td or Tdap) 07/09/2023 07/08/2013 Depression Screening 12/03/2023 12/02/2022 O2 ASSESSMENT COMPLETED IN PAST YEAR FOR COPD 01/16/2024 01/15/2023 COLONOSCOPY-EVERY 5 YRS AGES 18-100 01/03/2025 01/04/2020, 09/01/2013, 09/01/2013 Diabetes Screening 01/08/2026 01/08/2023, 1 , 06/20/2022, Additional history exists Lipid Panel 01/09/2028 01/08/2023, 06/04, 06/07/2021, Additional history exists LUNG CANCER SCREENING - USE SMARTSET [id number] Completed 02/25/2021, 02/23/2020, 02/16/2019, Additional history exists [...] as of this encounter Visit Diagnoses Diagnosis COPD, group D, by GOLD 2017 classification (HCC)- Primary Bronchiectasis without complication (HCC) Bronchiectasis without acute exacerbation Lung nodules Other nonspecific abnormal finding of lung field History of tobacco use Personal history of tobacco use, presenting hazards to health Nocturnal hypoxemia Hypoxemia Ground glass opacity present on imaging of lung Chronic respiratory failure with hypoxia (HCC) Chronic respiratory failure Mild obstructive sleep apnea-hypopnea syndrome documented in this encounter Care Teams Aging Box Hand Relationship Specialty Start Date End Date Edelmira Cavanaugh MD [address] [facility] [place] [address] PCP - General Internal Medicine 05/09/21 documented as of this encounter
--- OUTSIDE RECORDS SUMMARY | 2023-05-13 18:46 | External Medical Summary | Summary of Care ---
Author Name Unknown Organization [facility] Address [address] [place] [address] Phone [phone] Care Team Providers Care Cemetery Worker Name Role Phone Edelmira Cavanaugh MD Primary Care Provider [phone] Encounter Details Date Type Department Care Team Description 01/06/2023 Sushi Chef Care Coordination [address], [place] [id number] Anika Allen RN [address], [place] [id number] COPD, group D, by GOLD 2017 classification ([facility])* Allergies Active Allergy Reactions Severity Noted Date Comments Levofloxacin Other (Please comment) Low 10/18/2021 Rash documented as of this encounter (statuses as of 01/06/2023) Medications Medication Sig Dispensed Refills Start Date [...] or Wheezing. 54 g 3 12/23/2022 Active predniSONE 10 MG Oral Tablet (Deltasone) Take 5 tabs for 2 days, 4 tabs for 2 days, 3 tabs for 2 days, 2 tabs for 2 days 1 tab for 2 days 30 Tablet 0 12/23/2022 Active Albuterol Sulfate 1.25 MG/3ML Inhalation Nebulization SolutionIndications: COPD exacerbation ([facility]) Inhale 1.25 mg via nebulizer every 4 hours as needed for Wheezing. 120 mL 5 12/23/2022 Active Cyclobenzaprine HCl 10 MG Oral Tablet (Flexeril) Take 1 Tablet by mouth every 6 hours as needed for Muscle spasms. 0 Active Montelukast Sodium 10 MG Oral Tablet (Singulair) Take 1 Tablet by mouth at bedtime. 0 Active Hospital, Clinic, or Other Facility Administered [...] as of this encounter (statuses as of 01/06/2023) Active Problems Problem Noted Date Dependence on [...] as of this encounter (statuses as of 01/06/2023) Resolved Problems Problem Noted Date Resolved Date Chronic hypoxemic respiratory failure 08/01/2016 08/18/2018 COPD, severe 07/08/2013 02/10/2018 documented as of this encounter (statuses as of 01/06/2023) Immunizations Name Administration Dates Next Due COVID-19 mRNA, LNP-s, No Pre serve, 2-Dose Series ([employer]) 04/23/2021,08/25/2020,08/04/2020 COVID-19, LNP-s, No Preserve , Eddy-sucrose, Ages 12+ ([employer]) 11/04/2021 Pneumococcal Conjugate Vacci ne, 20-valent ([id number]) 12/12/2021 Pneumococcal Polysaccharide PPV23 (Pneumovax) 08/10/2013,03/21/2011(Deferred: Patient Refused) SEASONAL INFLUENZA, PF, 6 M & Above, IM , (FLULAVAL or FLUZONE) 12/12/2021,02/18/2019,03/10/2018,01/22 Season Influenza, Quad, PF, Adjuvanted, 65+ Yrs, IM (FLUAD) 03/06/2020 Seasonal Influenza, Quadriva lent Hd, 65+ Yrs [...] as of this encounter Progress Notes * Anika Allen RN - 01/06/2023 12:20 PM EDT Sushi Chef Progress Note: Date: 01/06/23 Assigned Patient Tier: 2 Connected with patient via phone. Verified patient name/. Advised patient that call is being recorded for quality and training purposes. Assessment: Pt. noted the following: Patient denies SOB, cough, LE edema or angina Using O2 at 2 liters, takes it off at times, checks O2 saturations, have been in the mid 90's Patient says his breathing feels better since using the CPAP in the hospital Patient has a good appetite, denies bowel/bladder complaints Has some chronic discomfort to his legs, currently controlled No skin issues, sleeping okay at night. Patient lives in a 2nd floor apartment with his , there are 14 steps to enter, says he takes breaks when going up the steps Patient independent with ambulation & ADL's, still drives, manages his own medications Patient states he has an advance directives paperwork at home, encouraged to bring to the clinic once completed Confirmed patient has a follow up appointment with Dr. Cavanaugh on 01/08/23 Will enroll patient in post d/c IVR calls Did you receive an alert for an annual wellness visit? No Is this call for a hospital, snf or rehab facility discharge to home? Yes admitted to [facility] 01/02/23 with SOB, cough, treated for a COPD exacerbation, discharged home on 01/05/23 Medication Reconciliation: Medication Reconciliation completed: yes Review of Current goals: Discussed the following patient-centered CM goals with the patient during this discussion: -COPD: Achieve successful management of COPD -Status: On Track denies SOB, cough, using inhalers as prescribed. -SAFETY: Prevent falls or injuries -Status: On Track patient independent with ambulation & ADL's, no report of falls. -Advanced Directive (AD): Patient will complete Advanced Care Planning -Status: On Track patient has the paperwork, plans to complete & bring to clinic. COPD Patient: YES Pulse Ox: 94% on room air at rest%, Oxygen: 2LPM via N/C, Breathing: Breathing atBaseline CHF Patient: NO CM Plan: Reviewed 3 Red Flags with patient. Advised to call CM with any of the following: Red Flag 1: increased SOB, productive cough, Red Flag 2: fever, chills, or Red Flag 3: increased weakness Remote Patient Monitoring: At this time, RPM not offered/considered for patient due to not needed at this time. Plan for Future Contacts: Plan to follow up within 1 week to check progress on the following goals/needs as above. Planned contacts from the following parties will occur this week: PCP office visit and Specialty Visit as additional contacts per workflow. Advancement/Closure Plan: Keep patient at current Tier with reassessment per workflow. Patient provided CM contact information and encouraged to call with any changes in condition. SNP Member? Yes Is Provider in agreement with POC? Yes PCP Notified of enrollment in CM/HM program: Yes Is Provider in agreement with POC? Yes Anika Allen RN Outpatient Case Management documented in this encounter Plan of Treatment Upcoming Encounters Date Type Specialty Care Team Description 01/08/2023 Office Visit Internal Medicine Edelmira Cavanaugh MD [address] [place] [address] 01/20/2023 Office Visit Pulmonary Guille Hubbard, DO [address] [place] [address] Scheduled Procedures Name Priority Associated Diagnoses Date/Ti me COLONOSCOPY FLEXIBLE PROXIMAL DIAGNOSTIC Recall History of colon polyps Health Maintenance Due Date Last Done Comments *ADVANCE DIRECTIVE NOT ON FILE 09/18/2018 COVID-19 Vaccine ( season) 2022 11/04/2021, 04/23/2021, 08/25/2020, Additional history exists Influenza Vaccine (FLU shot) (#1) 2022 12/12/2021, 02/08/2021, 03/06/2020, Additional history exists DTaP,Tdap,and Td Vaccines (2 - Td or Tdap) 07/09/2023 07/08/2013 Depression Screening 12/03/2023 12/02/2022 O2 ASSESSMENT COMPLETED IN PAST YEAR FOR COPD 12/03/2023 12/02/2022 COLONOSCOPY-EVERY 5 YRS AGES 18-100 01/03/2025 01/04/2020, 09/01/2013, 09/01/2013 Diabetes Screening 06/20/2025 06/20/2022, 1 04/22/2021, 06/07/2021, Additional history exists Lipid Panel 06/21/2027 06/20/2022, 03/0 07/2021, 11/08/2020, Additional history exists LUNG CANCER SCREENING - USE SMARTSET 70304 Completed 02/25/2021, 02/23/2020, 02/16/2019, Additional history exists Alpha-1 Antitrypsin Completed 11/04/2021 Pneumococcal Vaccine: Pediatrics (0 to 5 Years) and At-Risk Patients (6 to 64 Years) Completed 12/12/2021, 08/10/2013 Zoster Vaccines Completed 12/02/2022, 11/10/2019 GARDASIL-HPV IMMUNIZATION SERIES Aged Out No longer [...] D, by GOLD 2017 classification (HCC)- Primary documented in this encounter Care Teams Cemetery Worker Relationship Specialty Start Date End Date Edelmira Cavanaugh MD [address] [place] [address] PCP - General Internal Medicine 05/09/21 documented as of this encounter
--- OUTSIDE RECORDS SUMMARY | 2023-05-13 18:46 | External Medical Summary | Summary of Care ---
Author Name Unknown Organization [facility] Address [address] [place] [address] Phone [phone] Care Team Providers Care Draughtsman Name Role Phone Edelmira Cavanaugh MD Primary Care Provider [phone] Encounter Details Date Type Department Care Team Description 01/13/2023 Seismograph ObserverData Scientist Practice [facility] Goldie Bentley [address] [place] [address] Fiona Karimi RN Medical home patient encounter* Allergies Active Allergy Reactions Severity Noted Date Comments Levofloxacin Other (Please comment) Low 10/18/2021 Rash documented as of this encounter (statuses as of 01/13/2023) Medications Medication Sig Dispensed Refills Start Date [...] as of this encounter (statuses as of 01/13/2023) Active Problems Problem Noted Date Dependence on [...] as of this encounter (statuses as of 01/13/2023) Resolved Problems Problem Noted Date Resolved Date Chronic hypoxemic respiratory failure 08/01/2016 08/18/2018 COPD, severe 07/08/2013 02/10/2018 documented as of this encounter (statuses as of 01/13/2023) Immunizations Name Administration Dates Next Due COVID-19 mRNA, LNP-s, No Pre serve, 2-Dose Series ([employer]coin) 04/23/2021,08/25/2020,08/04/2020 COVID-19, LNP-s, No Preserve , Eddy-sucrose, Ages 12+ ([employer]coin) 11/04/2021 Pneumococcal Conjugate Vacci ne, 20-valent ([id number]) 12/12/2021 Pneumococcal Polysaccharide PPV23 (Pneumovax) 08/10/2013,03/21/2011(Deferred: Patient [...] of this encounter Progress Notes * Fiona Karimi RN - 01/13/2023 1:38 PM EDT SITUATION: Call for COLIN week 1 follow up BACKGROUND: Pt was inpt at [facility] for COPD exacerbation ASSESSMENT: Pt reports he is doing well. He states that he feels much better and thinks that havinga C-Pap at the hospital helped. He is scheduled for a sleep study tomorrow and hopes that he will be able to get one for home. He is finished with his prednisone and antibiotic. Reviewed 3 red flag with patient (Shortness of breath, weakness or dizziness, fevers or chills). RECOMMENDATION: CM will continue to follow up for COLIN period. Call CM/PCP for any chest pain, shortness of breath, nausea, vomiting, diarrhea, fever, chills or changes in your health status Fiona Karimi, tin plater [facility] [address] [facility] [address] documented in this encounter Plan of Treatment Upcoming Encounters Date Type Specialty Care Team Description 01/15/2023 Office Visit Sleep Disorders Janette Sifuentes, DO [address] [place] [address] 01/20/2023 Office Visit Pulmonary Guille Hubbard, DO [address] [facility] [place] [address] Scheduled Procedures Name Priority Associated Diagnoses Date/Ti me COLONOSCOPY FLEXIBLE PROXIMAL DIAGNOSTIC Recall History of colon polyps Health Maintenance Due Date Last Done Comments *ADVANCE DIRECTIVE NOT ON FILE 09/18/2018 COVID-19 Vaccine (2022- season) 2022 11/04/2021, 04/23/2021, 08/25/2020, Additional history exists DTaP,Tdap,and Td Vaccines (2 - Td or Tdap) 07/09/2023 07/08/2013 Depression Screening 12/03/2023 12/02/2022 O2 ASSESSMENT COMPLETED IN PAST YEAR FOR COPD 01/09/2024 01/08/2023 COLONOSCOPY-EVERY 5 YRS AGES 18-100 01/03/2025 01/04/2020, 09/01/2013, 09/01/2013 Diabetes Screening 01/08/2026 01/08/2023, 1 , 06/20/2022, Additional history exists Lipid Panel 01/09/2028 01/08/2023, 06/04, 06/07/2021, Additional history exists LUNG CANCER SCREENING - USE SMARTSET [id number] Completed 02/25/2021, 02/23/2020, 02/16/2019, Additional history exists [...] home patient encounter- Primary Other specified examination documented in this encounter Care Teams Draughtsman Relationship Specialty Start Date End Date Edelmira Cavanaugh MD [address] [place] [address] PCP - General Internal Medicine 05/09/21 documented as of this encounter
--- OUTSIDE RECORDS SUMMARY | 2023-05-13 18:46 | External Medical Summary ---
Author Name Unknown Address Unknown Organization [id number]:[facility] [place] [address] [facility] [place] [address] Laboratory Report Ordering Provider Test Date Status CHEYENNE MARIEALI 01/08/2023 12:15:23 Final Observation Date Value Abnormality Reference (Units ) Status Triglyceride 01/08/2023 12:15:23 118 <=174 ( mg/dL) Final Triglyceride Reference Range s (mg/dL):
<150 Acceptable
150-174 Borderline high
175-499 High
>=500 Very high Cholesterol 01/08/2023 12:15:23 174 <200 (mg /dL) Final Total Cholesterol Reference Ranges (mg/dL):
<200 Desirable
200-239 Borderline high
>=240 High HDL 01/08/2023 12:15:23 53 >39 (mg/dL ) Final HDL Cholesterol Reference Ra nges (mg/dL):
>=60 High (Desirable)
<50 Low (Undesirable) For Females
<40 Low (Undesirable) For Males NON-HDL CHOLESTEROL 01/08/2023 12:15:23 121 <=159 (mg/dL) Final Non-HDL Cholesterol Referenc e Range (mg/dL):
<100 Target level for high risk ASCVD patient
<130 Optimal for general population
130-159 Near optimal for general population
160-189 Borderline High
190-219 High
>=220 Very High LDL, (calculated) 01/08/2023 12:15:23 97 <= 129 (mg/dL) Final LDL Cholesterol Reference Ra nges (mg/dL):
<70 Target level for high risk ASCVD patient
<100 Optimal for general population
100-129 Near optimal for general population
130-159 Borderline high
160-189 High
>=190 Very high Performing Location [facility] [place] [address] [facility] [address]
--- OUTSIDE RECORDS SUMMARY | 2023-05-13 18:46 | External Medical Summary | Summary of Care ---
Author Name Unknown Organization [facility] Address [address] [place] [address] Phone [phone] Care Team Providers Care Chlorine Cell Tender Name Role Phone Edelmira Cavanaugh MD Primary Care Provider [phone] Reason for Visit * Reason Onset Date Comments Test Results 01/23/2023 Encounter Details Date Type Department Care Team Description 01/23/2023 Telephone General Internal Medicine [facility] Goldie [place] [address] [facility] [place] [address] Edelmira Cavanaugh MD [address] [place] [id number] Test Results Allergies Active Allergy Reactions Severity Noted Date [...] COPD, group D, by GOLD 2017 classification ([facility]) Inhale 2 Puffs by mouth [...] , group D, by GOLD 2017 classification ([facility]),COPD exacerbation ([facility]) Inhale 1 Puff by mouth every 4 hours as needed for Wheezing. 15 g 12 01/08/2023 Active Levalbuterol HCl 1.25 MG/3ML Inhalation Nebulization SolutionIndications: COPD, group D, by GOLD 2017 classification ([facility]),COPD exacerbation ([facility]) Inhale 3 mL via nebulizer [...] mgIndications:COPD, group D, by GOLD 2017 classification ([facility]),History of 2019 novel coronavirus disease (COVID-19) 2.5 mg NEBULIZER PRN 07/08/2022 07/08/2023 Active Albuterol Sulfate (Proventil) (2.5 MG/3ML) 0.083% inhalation solution 2.5 mgIndications:COPD, group D, by GOLD 2017 classification ([facility]),History of 2019 novel coronavirus disease [...] mRNA, LNP-s, No Pre serve, 2-Dose Series ([employer] [employer]) 04/23/2021,08/25/2020,08/04/2020 COVID-19, LNP-s, No Preserve , Eddy-sucrose, Ages 12+ (Pfizer) 11/04/2021 Pneumococcal Conjugate Vacci ne, 20-valent ([id number]) 12/12/2021 Pneumococcal Polysaccharide PPV23 (Pneumovax) 08/10/2013,03/21/2011(Deferred: Patient [...] encounter Miscellaneous Notes * Telephone Encounter - Kait Ly LPN - 01/23/2023 12:34 PM EDT Unable to reach patient. Letter sent * Telephone Encounter - Kait Ly LPN - 01/23/2023 12:23 PM EDT ----- Message from Edelmira Cavanaugh MD sent at 01/08/2023 10:23 PM EDT ----- Sugar borderline and close to being diabetic but not yet . Watch diet with avoiding high caloric and sugary food Wbc continues to be high . Repeat hba1c and cbc in 3 months - ordered Rest stable documented in this encounter Plan of Treatment [...] exists LUNG CANCER SCREENING - USE SMARTSET [id number] Completed 02/25/2021, 02/23/2020, 02/16/2019, Additional history exists [...] filedocumented as of this encounter Care Teams Chlorine Cell Tender Relationship Specialty Start Date End Date Edelmira Cavanaugh MD [address] [place] [address] PCP - General Internal Medicine 05/09/21 documented as of this encounter
--- OUTSIDE RECORDS SUMMARY | 2023-05-13 18:46 | External Medical Summary ---
Author Name Unknown Address Unknown Organization K09:[facility] [place] [address] Laboratory Report Ordering Provider Test Date Status ROSE MARIE 01/08/2023 12:15:23 Final Observation Date Value Abnormality Reference (Units ) Status BUN 01/08/2023 12:15:23 19 6-20 (mg/dL) Final Creatinine 01/08/2023 12:15:23 1.0 0.6-1.2 (mg/dL) Final Glomerular filtration rate/1.73 sq M.predicted [Volume Rate/Area] in Serum, Plasma or Blood by Creatinine-based formula (CKD-EPI) 01/08/2023 12:15:23 88 >=60 (mL/min) Final eGFR is calculated based on the CKD-EPI 2020 equation SODIUM 01/08/2023 12:15:23 136 135-146 (m mol/L) Final Potassium 01/08/2023 12:15:23 4.6 3.5-5.1 (m mol/L) Final Cl 01/08/2023 12:15:23 95 Below low normal 98- 107 (mmol/L) Final CO2 01/08/2023 12:15:23 30 22-32 (mmo l/L) Final Anion gap 01/08/2023 12:15:23 11 7-15 (mmol /L) Final Glucose 01/08/2023 12:15:23 92 70-120 (mg /dL) Final Albumin 01/08/2023 12:15:23 4.3 3.8-5.0 (g /dL) Final AST (Aspartate aminotransferase) 01/08/2023 12:15:23 10 10-50 (U/L) Fin al Alk Phos 01/08/2023 12:15:23 95 35-130 (U/ L) Final Bilirubin, Total 01/08/2023 12:15:23 0.7 <=1 .2 (mg/dL) Final Calcium 01/08/2023 12:15:23 9.7 8.4-10.2 ( mg/dL) Final Protein 01/08/2023 12:15:23 7.0 6.0-8.3 (g /dL) Final ALT (Alanine aminotransferase) 01/08/2023 12:15:23 30 10-50 (U/L) Carl white Performing Location LAB[facility]ORY [facility] [address] [place] [address]
--- OUTSIDE RECORDS SUMMARY | 2023-05-13 18:46 | External Medical Summary ---
Author Name Unknown Address Unknown Organization [id number]:[facility] [place] [address] [facility] [address] Laboratory Report Ordering Provider Test Date Status ROSE MARIE 01/08/2023 12:15:23 Final Observation Date Value Abnormality Reference (Units ) Status HbA1C 01/08/2023 12:15:23 6.4 Above high normal 4. 0-5.6 (%) Final The use of HbA1c to monitor glycemic status is based on normal hemoglobin and HbA composition. This test should not be used in patients with abnormal hemoglobin that affects the half life of the red blood cell or the in vivo glycation rates. Glucose, estimated average 01/08/2023 12:15:23 137 Above high normal <126 (mg/dL) Carl white Performing Location [facility] [place] [address] [facility] [address]
--- OUTSIDE RECORDS SUMMARY | 2023-05-13 18:46 | External Medical Summary | Summary of Care ---
Author Name Unknown Organization [facility] Address [address] [place] [address] Phone [phone] Care Team Providers Care Farm Mortgage Agent Name Role Phone Edelmira Cavanaugh MD Primary Care Provider [phone] Reason for Referral * Evaluate & Treat - Unlimited Visits (Within 3 days (urgent)) - Authorized Specialty Diagnoses / Procedures Referred By Aubrey austin Referred To Contact Movement Education Specialist Diagnoses COPD, group D, by GOLD 2017 classification (HCC) Edelmira Cavanaugh MD [address] [place] [address] Referral ID Status Reason Start Date Expiration Date Visits Requested Visits Authorized [id number] Authorized Specialty Services Required 01/06/2023 1 1 Question Answer Referral Priority Within 3 days (urgent) Program Type Case Management Complex Case Management [facility] Health Device(s) Requested Other (See Comment) Alarm Settings Standard per protocol Comments Primary Movement Education Specialist: Fiona Karimi RN Is the patient already enrolled with another [facility] device/service? (If no, will need to "push the button") No Does the patient have a physical address? (If no, provide physical address if requesting device) Yes Requested Devices/IVR: IVR Post-Discharge Start date: 01/14/23 How many weeks: 4 If want time other than 9am, note time here: call [phone] at noon thanks Anika Allen RN Reason for Visit * Reason Onset Date Comments case management 01/06/2023 Encounter Details Date Type Department Care Team Description 01/06/2023 Movement Education Specialist Telephone Care Coordination [address] [place] [address] Anika Allen RN [address] [place] [address] case management Allergies Active Allergy Reactions Severity Noted Date [...] 1.25 MG/3ML Inhalation Nebulization SolutionIndications: COPD exacerbation ([facility]) Inhale 1.25 mg via nebulizer every 4 [...] mRNA, LNP-s, No Pre serve, 2-Dose Series ([employer]Mob) 04/23/2021,08/25/2020,08/04/2020 COVID-19, LNP-s, No Preserve , Eddy-sucrose, Ages 12+ (Pfizer) 11/04/2021 Pneumococcal Conjugate Vacci ne, 20-valent ([id number]) 12/12/2021 Pneumococcal Polysaccharide PPV23 (Pneumovax) 08/10/2013,03/21/2011(Deferred: Patient [...] Visit Internal Medicine Edelmira Cavanaugh MD [address] [place] [address] 01/20/2023 Office Visit Pulmonary Guille Hubbard, DO [address] [place] [address] Scheduled Procedures Name Priority Associated Diagnoses Date/Ti me COLONOSCOPY FLEXIBLE PROXIMAL DIAGNOSTIC Recall History of colon polyps Scheduled Referrals Name Type Priority Associated Diagnoses Orde r Schedule REMOTE PATIENT MONITORING REFERRAL Referral Within 3 days (urgent) COPD, group D, by GOLD 2017 classification ([facility]) Ordered: 01/06/2023 Health Maintenance Due Date Last Done Comments [...] Additional history exists Lipid Panel 06/21/2027 06/20/2022, 07/2021, 11/08/2020, Additional history exists LUNG CANCER SCREENING - USE SMARTSET [id number] Completed 02/25/2021, 02/23/2020, 02/16/2019, Additional history exists [...] Primary documented in this encounter Care Teams Farm Mortgage Agent Relationship Specialty Start Date End Date Edelmira Cavanaugh MD [address] [facility] [place] [address] PCP - General Internal Medicine 05/09/21 documented as of this encounter
--- OUTSIDE RECORDS SUMMARY | 2023-05-13 18:46 | External Medical Summary ---
Author Name Unknown Address Unknown Organization K09:[facility] [place] [address] Laboratory Report Ordering Provider Test Date Status ROSE MARIE 01/08/2023 12:15:23 Final Observation Date Value Abnormality Reference (Units ) Status WBC, Total 01/08/2023 12:15:23 16.84 Above high normal 4 .00-10.80 (K/uL) Final RBC 01/08/2023 12:15:23 4.85 4.50-5.25 (M/uL) Final Hemoglobin 01/08/2023 12:15:23 14.6 14.0-16.8 (g/dL) Final HCT 01/08/2023 12:15:23 45.0 40.0-48.4 (%) Final MCV 01/08/2023 12:15:23 92.8 82.0-99.5 (fL) Final MCH 01/08/2023 12:15:23 30.1 27.0-34.0 (pg) Final MCHC 01/08/2023 12:15:23 32.4 32.0-36.0 (g/dL) Final RDW 01/08/2023 12:15:23 15.0 11.5-15.5 (%) Final Platelets 01/08/2023 12:15:23 330 140-400 (K /uL) Final MPV 01/08/2023 12:15:23 10.1 6.6-11.1 ( fL) Final Performing Location [facility] [place] [address] [place] [address]
--- OUTSIDE RECORDS SUMMARY | 2023-05-13 18:47 | External Medical Summary | Summary of Care ---
Author Name Unknown Organization [facility] Address [address] [place] [address] Phone [phone] Care Team Providers Care Material Handling Equipment Stevedore Name Role Phone Edelmira Cavanaugh MD Primary Care Provider [phone] Reason for Visit * Reason Onset Date Comments Follow Up 6 month follow u p. Patient denied any new concerns. Immunizations 12/02/2022 Shingrix Encounter Details Date Type Department Care Team Description 12/02/2022 Office Visit General Internal Medicine [facility] [place] [address] [place] [address] Edelmira Cavanaugh MD [address] [facility] [place] [address] Dyslipidemia, goal LDL below 100*; COPD, group D, by GOLD 2017 classification (HCC); Centrilobular emphysema (HCC); Bronchiectasis without complication (HCC); Dependence on continuous supplemental oxygen; History of tobacco use; Abnormal CT of the chest; Migraine without aura and without status migrainosus, not intractable; Multiple lung nodules; Nocturnal hypoxemia; Mild obstructive sleep apnea-hypopnea syndrome; RVH (right ventricular hypertrophy); Need for vaccination for zoster; Dermatophytosis of nail; Tinea pedis of both feet Allergies Active Allergy Reactions Severity Noted Date Comments Levofloxacin Other (Please comment) Low 10/18/2021 Rash documented as of this encounter (statuses as of 12/02/2022) Medications Medication Sig Dispensed Refills Start Date [...] Pain, Mild or Pain, Moderate. 0 Active Fluticasone-Umeclid in-Vilant 100-62.5-25 MCG/INH Aerosol Powder Breath Activated (TRELEGY ellipta) Inhale by mouth 1 Puff in the morning. Please rinse mouth out after use.. 180 Blister Dosing Unit 3 2 Active oxygen IN GAS 2 LPM via [...] THE MORNING 90 Tablet 3 3 Active Albuterol Sulfate HFA 108 (90 Base) MCG/ACT Inhalation Aerosol SolutionIndications :COPD, group D, by GOLD 2017 classification ([facility]) Inhale 2 Puffs by mouth every 4 hours as needed for Cough, Shortness of Breath or Wheezing. 54 g 3 3 Active Zoster Vac Recomb Adjuvanted [...] toe nails 8 mL 5 3 Active zoster vac recomb adjuvanted (SHINGRIX) 50 MCG/0.5ML injectionIndication s:Need for vaccination for zoster Inject 0.5 mL into a large muscle now and repeat dose in 60 to 180 days 1 Each 1 0 12/03/19 23 Discontinu ed(Refill) Hospital, Clinic, or Other Facility Administered Medication Ordered Dose Route Frequency Start Date End Date Status Albuterol Sulfate (Proventil) (5 MG/ML) 0.5% *conc* inhalation solution 2.5 mgIndications:COPD, group D, by GOLD 2017 classification ([facility]),History of 2019 novel coronavirus disease (COVID-19) 2.5 mg NEBULIZER PRN 07/08/2022 07/08/2023 Active Albuterol Sulfate (Proventil) (2.5 MG/3ML) 0.083% inhalation solution 2.5 mgIndications:COPD, group D, by GOLD 2017 classification ([facility]),History of 2018 novel coronavirus disease (COVID-19) 2.5 mg NEBULIZER PRN 07/08/2022 07/08/2023 Active documented as of this encounter (statuses as of 12/02/2022) Active Problems Problem Noted Date Dependence on [...] as of this encounter (statuses as of 12/02/2022) Resolved Problems Problem Noted Date Resolved Date Chronic hypoxemic respiratory failure 08/01/2016 08/18/2018 COPD, severe 07/08/2013 02/10/2018 documented as of this encounter (statuses as of 12/02/2022) Immunizations Name Administration Dates Next Due COVID-19 mRNA, LNP-s, No Pre serve, 2-Dose Series (DealPerk) 04/23/2021,08/25/2020,08/04/2020 COVID-19, LNP-s, No Preserve , Eddy-sucrose, Ages 12+ (Pfizer) 11/04/2021 Pneumococcal Conjugate Vacci ne, 20-valent ([id number]) 12/12/2021 Pneumococcal Polysaccharide PPV23 (Pneumovax) 08/10/2013,03/21/2011(Deferred: Patient Refused) Season Influenza, Quad, PF, Adjuvanted, 65+ Yrs, IM (FLUAD) 03/06/2020 Seasonal Influenza, PF, 6 mo ns & Above, IM , (Flulaval) 12/12/2021,02/18/2019,03/10/2018,01/22 Seasonal Influenza, Quadriva lent Hd, 65+ Yrs [...] Sign Reading Time Taken Comments Blood Pressure 130/72 12/02/2022 9:00 AM EDT Pulse 86 12/02/2022 9:00 AM EDT Temperature 36.1 C (96.9 F) 12/02/2022 9:00 AM ED T Respiratory Rate - - Oxygen Saturation 92% 12/02/2022 9:00 AM EDT Inhaled Oxygen Concentration - - Weight 73.3 kg (161 lb 8 oz) 12/02/2022 9:00 AM EDT Height 168.9 cm (5' 6.5") 12/02/2022 9:00 AM EDT Body Mass Index 25.68 12/02/2022 9:00 AM EDT documented in this encounter Patient Instructions * Patient Instructions* Ryanne Barker LPN - 12/02/2022 9:43 AM EDT ~~PATIENT INSTRUCTIONS FOR SHINGRIX VACCINE~~ Possible side effects of Shingrix vaccine, (shingles), are usually mild and can include: 1. Soreness or redness at injection site 2. Low grade fever 3. Body aches You may use a fever / pain reducing medication as needed for these symptoms. LET YOUR DOCTOR KNOW IMMEDIATELY IF YOU HAVE DIFFICULTY BREATHING OR SWALLOWING, EXPERIENCE ITCHINGOF FEET OR HANDS, HAVE SWELLING OF EYES, FACE OR INSIDE OF NOSE. documented in this encounter Progress Notes * Ryanne Barker LPN - 12/02/2022 9:42 AM EDT Does the patient have active shingles? No If, yes, patient must wait to receive vaccine till after rash is gone. Does the patient have an illness today with a fever more than 101?F? No Has the patient ever had a serious allergic reaction after receiving a vaccination? No Has the patient had a blood test showing they are not immune to Chicken Pox (rare)? No If yes, should get Chicken pox vaccine instead of shingrix. Verified patient has prescription/drug coverage. Patient has been informed that [facility] copays are close to $0. In most cases copays will be around $10. The maximum co-pay patients may get could as high as $200. yes Shingrix Vaccine Information Sheet has been provided. Ryanne Barker LPN 12/02/2022 9:42 AM IMMUNIZATION ADMINISTRATION DOCUMENTATION Time Out Procedure Performed: Yes Patient Identified (Ask Name/Date of ): Yes Patient allergic to latex?No VFC Stock? No Immunization(s) verified: Yes, Immunization Name: Shingrix, VIS Sheet(s) given: Yes Verified Side and Site: Yes Verified Shot(s) with Parent(s)/Patient: Yes Shingrix was administered per clinic protocol. Patient received the Shingrix VIS (Vaccine Information Sheet). Ryanne Barker LPN, 12/02/2022, 9:42 AM * Edelmira Cavanaugh MD - 12/02/2022 9:02 AM EDT Images from the original note were not included. History of Present Illness Liang Hodge is a 62 year old male that presents for Follow Up (6 month follow up. Patient denied any new concerns. ) 62 year old male with a history of COPD Group D, Migraine Headaches, and Hyperlipidemia presents here for recheck. Acute concern :- -asking about any pneumonia vaccine that he needs. He is up-to-date now and would need at 65 years old. Discussed about up-to-date COVID vaccine which would come in few weeks -has new fungus for a while and not getting better. Only been using [id number] stuff. He doeswear shoes without socks -some nose bleeding due to wearing oxygen, company delivered saline solution to use an oxygen. I also recommend for him to use saline nasal spray once or twice a day Interimmedical history : Feels a lot better, stamina is back to normal and gained previous weight. Watching diet and exercise : Doing better Routine labs : Due in a month Routine HM : Agreeable to catch up Chronic medical problem: reviewed and stable Physical Exam Vitals: 12/02/22 0900 Temp: 36.1 C (96.9 F) Pulse: 86 SpO2: 92% BP: 130/72 BMI: 25.68 Physical Exam Vitals and nursing note reviewed. Constitutional: General: He is not in acute distress. Appearance: He is normal weight. HENT: Head: Normocephalic. Mouth/Throat: Mouth: Mucous membranes are moist. Pharynx: Oropharynx is clear. Cardiovascular: Rate and Rhythm: Normal rate and regular rhythm. Pulmonary: Effort: Pulmonary effort is normal. No respiratory distress. Breath sounds: No wheezing. Abdominal: General: Bowel sounds are normal. There is no distension. Palpations: Abdomen is soft. There is no mass. Musculoskeletal: General: No swelling, tenderness or signs of injury. Cervical back: Neck supple. No rigidity. Skin: General: Skin is warm. Findings: No erythema, lesion or rash. Comments: Scaly lesion in both feet in plantar aspect on edge, thickened big toenail and some otherwhitening of the rest of the toenails. Neurological: General: No focal deficit present. Mental Status: He is alert. Psychiatric: Mood and Affect: Mood normal. I have reviewed the following results: Assessment and Plan Abnormal CT of the chest Pulmonary program following him COPD, group D, by GOLD 2017 classification (HCC) Stable Continue current treatment as directed Centrilobular emphysema (HCC) Bronchiectasis without complication (HCC) Dependence on continuous supplemental oxygen Dyslipidemia, goal LDL below 100 Continue current treatment as directed until lab comes back History of tobacco use Migraine without aura and without status migrainosus, not intractable Multiple lung nodules Nocturnal hypoxemia Mild obstructive sleep apnea-hypopnea syndrome RVH (right ventricular hypertrophy) Need for vaccination for zoster - Zoster Vac Recomb Adjuvanted 50 MCG/0.5ML Intramuscular Suspension Reconstituted (Shingrix); Inject 0.5 mL into a large muscle now and repeat dose in 60 to 180 days Dermatophytosis of nail - Jublia 10 % External Solution (Efinaconazole); Apply topically to affected area 2 times a day. Apply to toe nails Tinea pedis of both feet - Terbinafine HCl 1 % External Cream (LamISIL AT ATHLETE'S FOOT); Apply topically to affected area 2 times a day. Apply to both feet Wrap-Up Time: I spent a total of 30-39 minutes (exact time 38 mins) on the date of service in preparation, delivery, and documentation of the care provided to Liang Hodge excluding any time spent in the performance of separately billed services. documented in this encounter Nursing Notes * Melissa Turner CMA - 12/02/2022 8:57 AM EDT Chief Complaint Patient presents with Follow Up 6 month follow up. Patient denied any new concerns. documented in this encounter Plan of Treatment Upcoming Encounters Date Type Specialty Care Team Description 12/24/2022 PulmDiagnostic Pulmonary Function [place] [place] [address] 01/20/2023 Office Visit Pulmonary Guille Hubbard, DO [address] [facility] [place] [address] Scheduled Procedures Name Priority Associated Diagnoses Date/Ti me COLONOSCOPY FLEXIBLE PROXIMAL DIAGNOSTIC Recall History of colon polyps Health Maintenance Due Date Last Done Comments *ADVANCE DIRECTIVE NOT ON FILE 09/18/2018 Depression Screening, Annual for Pts 12 and Over 11/07/2020 12/02/2022 COVID-19 Vaccine (5 - Pfizer series) 12/30/2021 11/04/2021, 04/23/2021, 08/25/2020, Additional history exists Influenza Vaccine (FLU shot) (#1) 2022 12/12/2021, 02/08/2021, 03/06/2020, Additional history exists DTaP,Tdap,and Td Vaccines (2 - Td or Tdap) 07/09/2023 07/08/2013 O2 ASSESSMENT COMPLETED IN PAST YEAR FOR COPD 07/09/2023 12/02/2022 COLONOSCOPY-EVERY 5 YRS AGES 18-100 01/03/2025 01/04/2020, 09/01/2013, 09/01/2013 Diabetes Screening 06/20/2025 06/20/2022, 1 04/22/2021, 06/07/2021, Additional history exists Lipid Panel 06/21/2027 06/20/2022, 07/2021, 11/08/2020, Additional history exists LUNG CANCER SCREENING - USE SMARTSET 94460 Completed 02/25/2021, 02/23/2020, 02/16/2019, Additional history exists [...] Visit Diagnoses Diagnosis Dyslipidemia, goal LDL below 100- Primary Other and unspecified hyperlipidemia COPD, group D, by GOLD 2017 classification (HCC) Centrilobular emphysema (HCC) Other emphysema Bronchiectasis without complication (HCC) Bronchiectasis without acute exacerbation Dependence on continuous supplemental oxygen History of tobacco use Personal history of tobacco use, presenting hazards to health Abnormal CT of the chest Nonspecific (abnormal) findings on radiological and other examination of other intrathoracic organs Migraine without aura and without status migrainosus, not intractable Migraine without aura, without mention of intractable migraine without mention of status migrainosus Multiple lung nodules Other nonspecific abnormal finding of lung field Nocturnal hypoxemia Hypoxemia Mild obstructive sleep apnea-hypopnea syndrome RVH (right ventricular hypertrophy) Cardiomegaly Need for vaccination for zoster Need for prophylactic vaccination and inoculation against other viral diseases Dermatophytosis of nail Tinea pedis of both feet documented in this encounter Care Teams Material Handling Equipment Stevedore Relationship Specialty Start Date End Date Edelmira Cavanaugh MD [address] [place] [address] PCP - General Internal Medicine 05/09/21 documented as of this encounter
--- OUTSIDE RECORDS SUMMARY | 2023-05-13 18:47 | External Medical Summary | Summary of Care ---
Author Name Unknown Organization [facility] Address [address] [place] [address] Phone [phone] Care Team Providers Care Parquet Floor Layer'S Helper Name Role Phone Edelmira Cavanaugh MD Primary Care Provider [phone] Encounter Details Date Type Department Care Team Description 12/25/2022 Wire TwisterDesigner Writer Internal Medicine [facility] [place] [address] [place] [address] Fiona Karimi, MAYO Medical home patient encounter*; COPD, group D, by GOLD 2017 classification ([facility]) Allergies Active Allergy Reactions Severity Noted Date Comments Levofloxacin Other (Please comment) Low 10/18/2021 Rash documented as of this encounter (statuses as of 12/25/2022) Medications Medication Sig Dispensed Refills Start Date [...] group D, by GOLD 2017 classification ([facility]) Inhale 2 Puffs by mouth every 4 [...] MG/3ML Inhalation Nebulization SolutionIndications: COPD exacerbation ([facility]) Inhale 1.25 mg via nebulizer every 4 hours as needed for Wheezing. 120 mL 5 12/23/2022 Active Hospital, Clinic, or Other Facility Administered Medication Ordered Dose Route Frequency Start Date End Date Status Albuterol Sulfate (Proventil) (5 MG/ML) 0.5% *conc* inhalation solution 2.5 mgIndications:COPD, group D, by GOLD 2017 classification ([facility]),History of 2019 novel coronavirus disease (COVID-19) 2.5 mg NEBULIZER PRN 07/08/2022 07/08/2023 Active Albuterol Sulfate (Proventil) (2.5 MG/3ML) 0.083% inhalation solution 2.5 mgIndications:COPD, group D, by GOLD 2017 classification ([facility]),History of 2019 novel coronavirus disease (COVID-19) 2.5 mg NEBULIZER PRN 07/08/2022 07/08/2023 Active documented as of this encounter (statuses as of 12/25/2022) Active Problems Problem Noted Date Dependence on [...] as of this encounter (statuses as of 12/25/2022) Resolved Problems Problem Noted Date Resolved Date Chronic hypoxemic respiratory failure 08/01/2016 08/18/2018 COPD, severe 07/08/2013 02/10/2018 documented as of this encounter (statuses as of 12/25/2022) Immunizations Name Administration Dates Next Due COVID-19 mRNA, LNP-s, No Pre serve, 2-Dose Series (Coty) 04/23/2021,08/25/2020,08/04/2020 COVID-19, LNP-s, No Preserve , Eddy-sucrose, Ages 12+ (Pfizer) 11/04/2021 Pneumococcal Conjugate Vacci ne, 20-valent ([id number]) 12/12/2021 Pneumococcal Polysaccharide PPV23 (Pneumovax) 08/10/2013,03/21/2011(Deferred: Patient [...] Progress Notes * Fiona Karimi RN - 12/25/2022 3:30 PM EDT CM call to f/u with COPD exacerbation: Follow-up Routine Attempted Phone Call First Attempt Call Outcome Left Voicemail/Message Plan To attempt another outreach documented in this encounter Plan of Treatment Upcoming Encounters Date Type Specialty Care Team Description 01/20/2023 Office Visit Pulmonary Guille Hubbard, DO [address] [place] [facility] [place] [address] Scheduled Procedures Name Priority Associated Diagnoses Date/Ti me COLONOSCOPY FLEXIBLE PROXIMAL DIAGNOSTIC Recall History of colon polyps Health Maintenance Due Date Last Done Comments *ADVANCE DIRECTIVE NOT ON FILE 09/18/2018 COVID-19 Vaccine (5 - Pfizer series) 12/30/2021 [...] Additional history exists Lipid Panel 06/21/2027 06/20/2022, 03/07/2021, 11/08/2020, Additional history exists LUNG CANCER SCREENING - USE SMARTSET [id number] Completed 02/25/2021, 02/23/2020, 02/16/2019, Additional history exists [...] (HCC) documented in this encounter Care Teams Parquet Floor Layer'S Helper Relationship Specialty Start Date End Date Edelmira Cavanaugh MD [address] [place] [address] PCP - General Internal Medicine 05/09/21 documented as of this encounter
--- OUTSIDE RECORDS SUMMARY | 2023-05-13 18:47 | External Medical Summary | Summary of Care ---
Author Name Unknown Organization [facility] Address [address] [place] [address] Phone [phone] Care Team Providers Care Director Product Safety Name Role Phone Edelmira Cavanaugh MD Primary Care Provider [phone] Reason for Visit * Reason Onset Date Comments Med Request 12/23/2022 Advice 12/23/2022 Encounter Details Date Type Department Care Team Description 12/23/2022 Toe Former Telephone [facility] [address] [place] [address] Fiona Karimi, MAYO Med Request; Advice Allergies Active Allergy Reactions Severity Noted Date Comments Levofloxacin Other (Please comment) Low 10/18/2021 Rash documented as of this encounter (statuses as of 12/23/2022) Medications Medication Sig Dispensed Refills Start Date [...] :COPD, group D, by GOLD 2017 classification ([facility]) Inhale 2 Puffs by mouth every 4 hours as needed for Cough, Shortness of Breath or Wheezing. 54 g 3 3 Active predniSONE 10 MG Oral Tablet (Deltasone) Take 5 tabs for 2 days, 4 tabs for 2 days, 3 tabs for 2 days, 2 tabs for 2 days 1 tab for 2 days 30 Tablet 0 3 Active Albuterol Sulfate 1.25 MG/3ML Inhalation Nebulization SolutionIndications :COPD exacerbation ([facility]) Inhale 1.25 mg via nebulizer every 4 hours as needed for Wheezing. 120 mL 5 3 Active Albuterol Sulfate HFA 108 (90 Base) MCG/ACT Inhalation Aerosol SolutionIndications :COPD, group D, by GOLD 2017 classification ([facility]) Inhale 2 Puffs by mouth every 4 hours as needed for Cough, Shortness of Breath or Wheezing. 54 g 3 3 12/24/19 23 Discontinu ed(Refill) Hospital, Clinic, or Other Facility Administered Medication Ordered Dose Route Frequency Start Date End Date Status Albuterol Sulfate (Proventil) (5 MG/ML) 0.5% *conc* inhalation solution 2.5 mgIndications:COPD, group D, by GOLD 2017 classification ([facility]),History of 2019 novel coronavirus disease (COVID-19) 2.5 mg NEBULIZER PRN 07/08/2022 07/08/2023 Active Albuterol Sulfate (Proventil) (2.5 MG/3ML) 0.083% inhalation solution 2.5 mgIndications:COPD, group D, by GOLD 2017 classification ([facility]),History of 2019 novel coronavirus disease (COVID-19) 2.5 mg NEBULIZER PRN 07/08/2022 07/08/2023 Active documented as of this encounter (statuses as of 12/23/2022) Active Problems Problem Noted Date Dependence on [...] as of this encounter (statuses as of 12/23/2022) Resolved Problems Problem Noted Date Resolved Date Chronic hypoxemic respiratory failure 08/01/2016 08/18/2018 COPD, severe 07/08/2013 02/10/2018 documented as of this encounter (statuses as of 12/23/2022) Immunizations Name Administration Dates Next Due COVID-19 mRNA, LNP-s, No Pre serve, 2-Dose Series (Moveline) 04/23/2021,08/25/2020,08/04/2020 COVID-19, LNP-s, No Preserve , Eddy-sucrose, Ages 12+ (Pfizer) 11/04/2021 Pneumococcal Conjugate Vacci ne, 20-valent ([id number]) 12/12/2021 Pneumococcal Polysaccharide PPV23 (Pneumovax) 08/10/2013,03/21/2011(Deferred: Patient [...] encounter Miscellaneous Notes * Telephone Encounter - Ryanne Barker LPN - 12/23/2022 4:53 PM EDT Patient notified of message below. Verbalized understanding. * Telephone Encounter - Edelmira Cavanaugh MD - 12/23/2022 4:12 PM EDT Sent I realized that he is set up for flu shot , suggest to delay by 2 weeks due to possibly needing prednisone * Telephone Encounter - Stephany Tang leather lacer - 12/23/2022 3:50 PM EDT Patient calling back. He said that the inhaler that was called into the pharmacy isn't what he was looking for. He would like nebulizer solution. He does currently have a nebulizer. Please send a newprescription if appropriate. Stephany Tang Criminalist II [facility] [address] [place] [id number] 12/23/2022 3:51 PM * Telephone Encounter - Melissa Turner CMA - 12/23/2022 3:02 PM EDT Patient aware and verbalized understanding, denied any sx's * Telephone Encounter - Edelmira Cavanaugh MD - 12/23/2022 1:49 PM EDT Albuterol sent along with prednisone Check any runny nose, sickness, f/c, bodyaches or sick contact ? If suggest suggest [place] for resp panel test * Telephone Encounter - Fiona Karimi RN - 12/23/2022 11:27 AM EDT SITUATION: Pt called in to this CM with update BACKGROUND: Pt with COPD ASSESSMENT: Pt reports that he has been having a hard time breathing the past few days. He is currently out of albuterol for his nebulizer. He denies any fevers or chills. He has a productive cough. RECOMMENDATION: Please reorder albuterol. Also, can we order this patient a COPD rescue kit? I am going to call him back on and if he has not improved he may need to start one. Thank you in advanced, Fiona Karimi, lpn care manager [address] [employer] [address] [facility] [address] documented in this encounter Plan of Treatment Upcoming Encounters Date Type Specialty Care Team Description 12/25/2022 Immunization Ancillary [place] [address] [facility] [address] 01/20/2023 Office Visit Pulmonary Guille Hubbard, DO [address] [facility] [place] [address] Scheduled Procedures Name Priority Associated Diagnoses Date/Ti [...] exists LUNG CANCER SCREENING - USE SMARTSET [id number] Completed 02/25/2021, 02/23/2020, 02/16/2019, Additional history exists [...] (HCC)- Primary Obstructive chronic bronchitis with exacerbation COPD, group D, by GOLD 2017 classification (HCC) documented in this encounter Care Teams Director Product Safety Relationship Specialty Start Date End Date Edelmira Cavanaugh MD [address] [place] [address] PCP - General Internal Medicine 05/09/21 documented as of this encounter
--- OUTSIDE RECORDS SUMMARY | 2023-05-13 18:47 | External Medical Summary | Summary of Care ---
Author Name Unknown Organization [facility] Address [address] [place] [address] Phone [phone] Care Team Providers Care Tractor Operator Helper Name Role Phone Edelmira Cavanaugh MD Primary Care Provider [phone] Encounter Details Date Type Department Care Team Description 12/26/2022 Shafting CleanerSubstation Operator Helper Generation Practice [facility] [place] [address] [place] [address] Fiona Karimi RN Medical home patient encounter* Allergies Active Allergy Reactions Severity Noted Date Comments Levofloxacin Other (Please comment) Low 10/18/2021 Rash documented as of this encounter (statuses as of 12/26/2022) Medications Medication Sig Dispensed Refills Start Date [...] COPD, group D, by GOLD 2017 classification ([facility]) Inhale 2 Puffs by mouth [...] 1.25 MG/3ML Inhalation Nebulization SolutionIndications: COPD exacerbation ([facility]) Inhale 1.25 mg via nebulizer every 4 hours as needed for Wheezing. 120 mL 5 12/23/2022 Active Hospital, Clinic, or Other Facility Administered Medication Ordered Dose Route Frequency Start Date End Date Status Albuterol Sulfate (Proventil) (5 MG/ML) 0.5% *conc* inhalation solution 2.5 mgIndications:COPD, group D, by GOLD 2017 classification ([facility]),History of 2019 novel coronavirus disease (COVID-19) 2.5 mg NEBULIZER PRN 07/08/2022 07/08/2023 Active Albuterol Sulfate (Proventil) (2.5 MG/3ML) 0.083% inhalation solution 2.5 mgIndications:COPD, group D, by GOLD 2017 classification ([facility]),History of 2019 novel coronavirus disease (COVID-19) 2.5 mg NEBULIZER PRN 07/08/2022 07/08/2023 Active documented as of this encounter (statuses as of 12/26/2022) Active Problems Problem Noted Date Dependence on [...] as of this encounter (statuses as of 12/26/2022) Resolved Problems Problem Noted Date Resolved Date Chronic hypoxemic respiratory failure 08/01/2016 08/18/2018 COPD, severe 07/08/2013 02/10/2018 documented as of this encounter (statuses as of 12/26/2022) Immunizations Name Administration Dates Next Due COVID-19 mRNA, LNP-s, No Pre serve, 2-Dose Series ([employer] 04/23/2021,08/25/2020,08/04/2020 COVID-19, LNP-s, No Preserve , Eddy-sucrose, Ages 12+ (Pfizer) 11/04/2021 Pneumococcal Conjugate Vacci ne, 20-valent ([id number]) 12/12/2021 Pneumococcal Polysaccharide PPV23 (Pneumovax) 08/10/2013,03/21/2011(Deferred: Patient [...] Progress Notes * Fiona Karimi RN - 12/26/2022 3:31 PM EDT Follow-up Routine Attempted Phone Call Second Attempt Call Outcome Left Voicemail/Message Plan To attempt another outreach documented in this encounter Plan of Treatment Upcoming Encounters Date Type Specialty Care Team Description 01/20/2023 Office Visit Pulmonary Guille Hubbard, DO [address] [place] [facility] [place] [address] Scheduled Procedures Name Priority Associated Diagnoses Date/Ti [...] exists LUNG CANCER SCREENING - USE SMARTSET 69912 Completed 02/25/2021, 02/23/2020, 02/16/2019, Additional history exists [...] examination documented in this encounter Care Teams Tractor Operator Helper Relationship Specialty Start Date End Date Edelmira Cavanaugh MD [address] [place] [address] PCP - General Internal Medicine 05/09/21 documented as of this encounter
[2023-05-13] MEDS: MONTELUKAST SODIUM 10 MG TABLET PO SCH (20:15)
[2023-05-13] MEDS: guaiFENesin 600 MG TABCR PO SCH (20:16)
[2023-05-13] MEDS: METOPROLOL SUCC 25MG EXT REL TAB PO SCH (20:17)
[2023-05-14] MEDS: BENZONATATE 100 MG CAPSULE PO PRN (04:38)
[2023-05-14 07:21] LABS: Hemoglobin 11.1 g/dl (14.0-18.0); Mean Corpuscular Hemoglobin 29.8 pg (25.0-34.0); Mean Corpuscular Hgb Conc 31.7 g/dL (32.0-36.0); Mean Corpuscular Volume 93.8 fL (80.0-100.0); Mean Platelet Volume 10.8 fL (9.4-12.4); Platelet Count 246 K/uL (130-400); RDW Coefficient of Variation 13.2 % (11.5-14.5); RDW Standard Deviation 45.5 fL (36.4-46.3); Red Blood Count 3.73 M/uL (4.70-6.10); White Blood Count 14.69 K/ul (4.8-10.8)
[2023-05-14 07:33] LABS: Creatinine Clr Calc Pharmacy 78.5 ml/min; Est GFR (Non-African American) 90.6 ml/min; Potassium 4.4 mmol/L (3.5-5.1)
[2023-05-14 07:59] LABS: Basophils # (auto) 0.03 K/uL (0.00-0.20); Basophils % (auto) 0.2 %; Immature Granulocytes # (auto) 0.11 K/uL (0.01-0.20); Immature Granulocytes % (auto) 0.7 %; Lymphocytes % (auto) 4.8 %; Monocytes # (auto) 0.47 K/uL (0.11-0.59); Monocytes % (auto) 3.2 %; Neutrophils # (auto) 13.38 K/uL (1.40-6.50); Neutrophils % (auto) 91.1 %
[2023-05-14] MEDS: FLUTICASONE FUROATE 100MCG 14 PUFFS/INHALER INH SCH (08:11)
[2023-05-14] MEDS: UMECLIDINIUM/VILANTEROL 62.5/25MCG 7 PUFFS/INHALER INH SCH (08:11)
[2023-05-14] MEDS: ASPIRIN 81 MG ECTAB PO SCH (08:12)
[2023-05-14] MEDS: ROSUVASTATIN CALCIUM 20 MG TAB PO SCH (08:12)
[2023-05-14] MEDS: cefTRIAXone SODIUM 2,000 MG in DEXTROSE 5 % MINI-B 50 ML IV SCH (08:12)
[2023-05-14] MEDS ORDERED: NON-FORMULARY MEDICATION (Fluticasone-Umeclidin-Vilanter [Trelegy Ellipta] 100-62.5-25 mcg INH SCH (09:00)
[2023-05-14] MEDS: LORazepam 0.5 MG TAB PO ONE (13:24)
[2023-05-14] MEDS: IPRATROPIUM BROMIDE NEB SOLN 0.02% 0.5MG/2.5ML VIAL NEB SCH ×2 (13:29→14:48)
[2023-05-14] MEDS: LEVALBUTEROL HCL 0.63 MG/3 ML NEB NEB SCH ×2 (13:29→14:48)
[2023-05-14] MEDS: methylPREDNISolone 20 MG in SYRINGE 0 ML IV SCH (13:50)
--- NOTE | 2023-05-14 14:00 | Electrocardiogram Report ---
Test Reason : Blood Pressure : / mmHG Vent. Rate : 093 BPM Atrial Rate : 093 BPM P-R Int : 190 ms QRS Dur : 082 ms QT Int : 318 ms P-R-T Axes : 080 063 071 degrees QTc Int : 395 ms Poor data quality, interpretation may be adversely affected Normal sinus rhythm Normal ECG When compared with ECG of 13-MAY-2023 11:28, Nonspecific T wave abnormality no longer present Confirmed by Medardo Raphael ([id number]) on 05/14/2023 1:59:58 PM Referred By: REFERRED SELF Confirmed By:Medardo Raphael
--- NOTE | 2023-05-14 15:15 | Hospitalist Progress Note ---
Date of Service May 14, 2023 Assessment & Plan (1) Acute on chronic hypoxic respiratory failure: (2) COPD exacerbation: Plan: Patient is 63-year-old male with PMH COPD, chronic hypoxic respiratory failure on 2 L nasal cannula, nocturnal hypoxia, HLD, history of lung nodules presented to ER with complaint of rhinorrhea, sore throat, productive cough, SOB for 1 day duration Acute on chronic respiratory failure with hypoxia Acute COPD exacerbation Chronic oxygen dependency--on 2 L at baseline Suspected pneumonitis/bronchiolitis --CXR: Chronic reticulonodular opacities are again noted compatible with an infectious or inflammatory pneumonitis/bronchiolitis and have mildly worsened from the most recent 01/02/2023 study. Emphysema. -- Negative BioFire --Normal procalcitonin Continue doxycycline, Rocephin Continue nebs, Solu-Medrol Titrate oxygen to keep saturation 88 to 92% Pulmonary hygiene with incentive spirometry, flutter, continue Mucinex Continue home inhalers Will consider pulmonary evaluation if needed Hyperglycemia Likely secondary to steroids Check HbA1c (3) Hyperlipemia: Plan: Chronic stable Continue rosuvastatin (4) Lung nodule: Plan: H/O lung nodules Needs follow-up as outpatient DVT Px Lovenox SQ Code Status Full Code Admission and Anticipated Discharge Date Admission Date: May 13, 2023 Subjective Patient is seen and examined at bedside Less cough, dyspnea today Admits to have intermittent dizziness with positional change Denies any nausea, vomiting, chest pain, abdominal pain Saturating well on 2 L supplemental oxygen Review of Systems Review of Systems: All systems reviewed & are unremarkable except as noted in Subjective Physical Exam Physical Exam: Physical Exam: Vitals signs as noted above General Appearance:Moderately built and nourished, no apparent distress Head: normocephalic, Atraumatic Eyes: normal inspection, EOMI Neck: supple, Trachea midline Respiratory/Chest: Decreased breath sounds, CTA, No accessory muscle use Cardiovascular: S1, S2, No murmur, +Tachycardia Abdomen/GI:Soft, Non tender, Bowel sounds present Extremities/Musculoskeletal:normal inspection, no edema Neurologic/Psych:AAOX3, grossly no focal neurological deficits Skin: normal color, warm Results & Data Results & Data Vital Signs (Past 12 Hours) Vital Signs Temp Pulse Pulse Pulse Resp BP BP 05/14/23 15:00 104 H 05/14/23 14:51 105 H 18 05/14/23 11:29 94 H 16 05/14/23 11:24 36.4 C L 89 18 124/74 05/14/23 10:00 05/14/23 07:39 36.4 C L 18 122/71 05/14/23 07:28 05/14/23 07:07 90 18 05/14/23 07:00 80 05/14/23 04:20 36.6 C 91 H 18 126/74 Pulse Ox O2 Del Method O2 Flow Rate 05/14/23 15:00 05/14/23 14:51 95 Nasal Cannula 2 05/14/23 11:29 98 Nasal Cannula 2 05/14/23 11:24 97 Nasal Cannula 2 05/14/23 10:00 Nasal Cannula 2 05/14/23 07:39 90 Nasal Cannula 2 05/14/23 07:28 Nasal Cannula 2 05/14/23 07:07 92 Nasal Cannula 2 05/14/23 07:00 05/14/23 04:20 91 Nasal Cannula Laboratory Results Short CBC 05/14/23 Range/Units 06:31 WBC 14.69 H (4.8-10.8) K/ul Hgb 11.1 L (14.0-18.0) g/dl Hct 35.0 L (42.0-52.0) % Plt Count 246 (130-400) K/uL BMP 05/14/23 06:31 Sodium 140 Potassium 4.4 Chloride 108 H Carbon Dioxide 26 BUN 18 Creatinine 0.90 Glucose 168 H Calcium 9.0
[2023-05-14] MEDS: LORazepam 0.5 MG TAB PO STA (20:55)
[2023-05-14] MEDS: guaiFENesin/CODEINE 100MG/10MG 5ML UDC PO STA (22:35)
[2023-05-15 07:19] LABS: Hematocrit (blood only) 34.6 % (42.0-52.0); Mean Corpuscular Hemoglobin 29.6 pg (25.0-34.0); Mean Corpuscular Hgb Conc 31.8 g/dL (32.0-36.0); Mean Platelet Volume 10.7 fL (9.4-12.4); Platelet Count 312 K/uL (130-400); RDW Coefficient of Variation 13.4 % (11.5-14.5); RDW Standard Deviation 45.9 fL (36.4-46.3); Red Blood Count 3.72 M/uL (4.70-6.10); White Blood Count 22.99 K/ul (4.8-10.8)
[2023-05-15 07:28] LABS: Estimated Average Glucose 126 mg/dl
[2023-05-15 07:35] LABS: BUN Creatinine Ratio 22.7 (10-20); Creatinine Clr Calc Pharmacy 72.9 ml/min; Est GFR (African American) 95.9 ml/min; Est GFR (Non-African American) 82.7 ml/min; Magnesium 2.1 mg/dl (1.7-2.4); Potassium 3.9 mmol/L (3.5-5.1)
[2023-05-15] MEDS: LORazepam 0.5 MG TAB PO PRN (09:20)
--- NOTE | 2023-05-15 16:48 | Hospitalist Progress Note ---
Date of Service May 15, 2023 Assessment & Plan (1) Acute on chronic hypoxic respiratory failure: (2) COPD exacerbation: Plan: Patient is 63-year-old male with PMH COPD, chronic hypoxic respiratory failure on 2 L nasal cannula, nocturnal hypoxia, HLD, history of lung nodules presented to ER with complaint of rhinorrhea, sore throat, productive cough, SOB for 1 day duration Acute on chronic respiratory failure with hypoxia Acute COPD exacerbation Chronic oxygen dependency--on 2 L at baseline Suspected pneumonitis/bronchiolitis --CXR: Chronic reticulonodular opacities are again noted compatible with an infectious or inflammatory pneumonitis/bronchiolitis and have mildly worsened from the most recent 01/02/2023 study. Emphysema. -- Negative BioFire --Normal procalcitonin Continue doxycycline, Rocephin Continue nebs, Solu-Medrol Titrate oxygen to keep saturation 88 to 92% Pulmonary hygiene with incentive spirometry, flutter Antitussives as needed Continue home inhalers Titrate oxygen as able Will obtain 2 step prior to discharge Titrate down steroids as able Prediabetes Likely secondary to steroids HbA1c 6.0 (3) Hyperlipemia: Plan: Chronic stable Continue rosuvastatin (4) Lung nodule: Plan: H/O lung nodules Needs follow-up as outpatient DVT Px Lovenox SQ Code Status Full Code Admission and Anticipated Discharge Date Admission Date: May 13, 2023 Subjective Patient is seen and examined at bedside Subjectively feels better today Cough, dyspnea continues to improve No new complaints Denies any nausea, vomiting, chest pain, abdominal pain Review of Systems Review of Systems: All systems reviewed & are unremarkable except as noted in Subjective Physical Exam Physical Exam: Physical Exam: Vitals signs as noted above General Appearance:Moderately built and nourished, no apparent distress Head: normocephalic, Atraumatic Eyes: normal inspection, EOMI Neck: supple, Trachea midline Respiratory/Chest: Decreased breath sounds, minimal wheezing , No accessory muscle use Cardiovascular: S1, S2, No murmur Abdomen/GI:Soft, Non tender, Bowel sounds present Extremities/Musculoskeletal:normal inspection, no edema Neurologic/Psych:AAOX3, grossly no focal neurological deficits Skin: normal color, warm Results & Data Results & Data Vital Signs (Past 12 Hours) Vital Signs Temp Pulse Pulse Pulse Resp BP Pulse Ox 05/15/23 15:47 91 H 15 97 05/15/23 15:00 88 05/15/23 11:44 36.6 C 109 H 18 149/83 H 94 05/15/23 11:19 05/15/23 08:39 36.3 C L 98 H 17 142/80 H 96 05/15/23 07:12 92 H 05/15/23 07:12 91 H 24 97 O2 Del Method O2 Flow Rate 05/15/23 15:47 Nasal Cannula 05/15/23 15:00 05/15/23 11:44 Nasal Cannula 2 05/15/23 11:19 Nasal Cannula 2 05/15/23 08:39 Nasal Cannula 2.5 05/15/23 07:12 05/15/23 07:12 Nasal Cannula 2 Laboratory Results Short CBC 05/15/23 Range/Units 06:17 WBC 22.99 H D (4.8-10.8) K/ul Hgb 11.0 L (14.0-18.0) g/dl Hct 34.6 L (42.0-52.0) % Plt Count 312 (130-400) K/uL BMP 05/15/23 06:17 Sodium 141 Potassium 3.9 Chloride 107 Carbon Dioxide 28 BUN 22 Creatinine 0.97 Glucose 158 H Calcium 9.0
[2023-05-15] MEDS: DOXYCYCLINE HYCLATE 100 MG CAP PO SCH (20:47)
[2023-05-15] MEDS: methylPREDNISolone 20 MG in SYRINGE 0 ML IV SCH (20:49)
[2023-05-16 06:37] LABS: Hematocrit (blood only) 35.2 % (42.0-52.0); Hemoglobin 11.2 g/dl (14.0-18.0); Mean Corpuscular Hemoglobin 29.6 pg (25.0-34.0); Mean Corpuscular Hgb Conc 31.8 g/dL (32.0-36.0); Mean Corpuscular Volume 93.1 fL (80.0-100.0); Mean Platelet Volume 10.6 fL (9.4-12.4); Platelet Count 291 K/uL (130-400); RDW Coefficient of Variation 13.4 % (11.5-14.5); RDW Standard Deviation 45.9 fL (36.4-46.3); Red Blood Count 3.78 M/uL (4.70-6.10); White Blood Count 18.58 K/ul (4.8-10.8)
[2023-05-16 08:00] LABS: BUN Creatinine Ratio 25.6 (10-20); Calcium 8.8 mg/dl (8.6-10.3); Creatinine Clr Calc Pharmacy 86.2 ml/min; Est GFR (African American) 109.1 ml/min; Est GFR (Non-African American) 94.1 ml/min; Potassium 4.5 mmol/L (3.5-5.1)
--- NOTE | 2023-05-16 13:44 | Hospitalist Progress Note ---
Date of Service May 16, 2023 Assessment & Plan (1) Acute on chronic hypoxic respiratory failure: (2) COPD exacerbation: Plan: Patient is 63-year-old male with PMH COPD, chronic hypoxic respiratory failure on 2 L nasal cannula, nocturnal hypoxia, HLD, history of lung nodules presented to ER with complaint of rhinorrhea, sore throat, productive cough, SOB for 1 day duration Acute on chronic respiratory failure with hypoxia Acute COPD exacerbation Chronic oxygen dependency--on 2 L at baseline Suspected pneumonitis/bronchiolitis --CXR: Chronic reticulonodular opacities are again noted compatible with an infectious or inflammatory pneumonitis/bronchiolitis and have mildly worsened from the most recent 01/02/2023 study. Emphysema. -- Negative BioFire --Normal procalcitonin Continue doxycycline, Rocephin Continue nebs Titrate oxygen to keep saturation 88 to 92% Pulmonary hygiene with incentive spirometry, flutter Antitussives as needed Continue home inhalers Titrate oxygen as able Will obtain 2 step prior to discharge Transition IV Solu-Medrol to prednisone tomorrow Prediabetes Likely secondary to steroids HbA1c 6.0 Hypertension BP elevated likely due to steroids Increase metoprolol to succinate to 12.5 twice daily Monitor Chest medications as needed (3) Hyperlipemia: Plan: Chronic stable Continue rosuvastatin (4) Lung nodule: Plan: H/O lung nodules Needs follow-up as outpatient DVT Px Lovenox SQ Code Status Full Code Admission and Anticipated Discharge Date Admission Date: May 13, 2023 Subjective Patient is seen and examined at bedside Dyspnea much improved Still has intermittent cough No wheezing today Denies any nausea, vomiting, chest pain, abdominal pain Review of Systems Review of Systems: All systems reviewed & are unremarkable except as noted in Subjective Physical Exam Physical Exam: Physical Exam: Vitals signs as noted above General Appearance:Moderately built and nourished, no apparent distress Head: normocephalic, Atraumatic Eyes: normal inspection, EOMI Neck: supple, Trachea midline Respiratory/Chest: Decreased breath sounds, CTA , No accessory muscle use Cardiovascular: S1, S2, No murmur Abdomen/GI:Soft, Non tender, Bowel sounds present Extremities/Musculoskeletal:normal inspection, no edema Neurologic/Psych:AAOX3, grossly no focal neurological deficits Skin: normal color, warm Results & Data Results & Data Vital Signs (Past 12 Hours) Vital Signs Temp Pulse Pulse Resp BP Pulse Ox O2 Del Method 05/16/23 11:47 36.3 C L 96 H 16 150/89 H 100 Nasal Cannula 05/16/23 09:57 Nasal Cannula 05/16/23 09:18 76 05/16/23 07:55 36.4 C L 102 H 16 164/81 H 92 Nasal Cannula 05/16/23 07:11 93 H 20 96 Nasal Cannula 05/16/23 03:51 36.6 C 91 H 18 160/90 H 97 Nasal Cannula O2 Flow Rate 05/16/23 11:47 2 05/16/23 09:57 2 05/16/23 09:18 05/16/23 07:55 2 05/16/23 07:11 2 05/16/23 03:51 2 Laboratory Results Short CBC 05/16/23 Range/Units 06:07 WBC 18.58 H (4.8-10.8) K/ul Hgb 11.2 L (14.0-18.0) g/dl Hct 35.2 L (42.0-52.0) % Plt Count 291 (130-400) K/uL BMP 05/16/23 06:07 Sodium 141 Potassium 4.5 Chloride 105 Carbon Dioxide 31 BUN 21 Creatinine 0.82 Glucose 145 H Calcium 8.8
[2023-05-16] MEDS: METOPROLOL SUCC 25MG EXT REL TAB PO SCH (14:21)
[2023-05-17 06:55] LABS: Hematocrit (blood only) 35.4 % (42.0-52.0); Hemoglobin 11.7 g/dl (14.0-18.0); Mean Corpuscular Hemoglobin 29.5 pg (25.0-34.0); Mean Corpuscular Hgb Conc 33.1 g/dL (32.0-36.0); Mean Corpuscular Volume 89.4 fL (80.0-100.0); Mean Platelet Volume 10.4 fL (9.4-12.4); Platelet Count 314 K/uL (130-400); RDW Coefficient of Variation 13.2 % (11.5-14.5); RDW Standard Deviation 43.5 fL (36.4-46.3); Red Blood Count 3.96 M/uL (4.70-6.10); White Blood Count 15.32 K/ul (4.8-10.8)
[2023-05-17 07:19] LABS: BUN Creatinine Ratio 27.6 (10-20); Calcium 9.2 mg/dl (8.6-10.3); Est GFR (African American) 112.5 ml/min; Est GFR (Non-African American) 97.1 ml/min; Potassium 4.2 mmol/L (3.5-5.1)
[2023-05-17] MEDS: cefTRIAXone SODIUM 2,000 MG in DEXTROSE 5 % MINI-B 50 ML IV SCH (08:28)
[2023-05-17] MEDS: predniSONE 20 MG TAB PO SCH (08:28)
--- NOTE | 2023-05-17 14:28 | Hospitalist Progress Note ---
Date of Service May 17, 2023 Assessment & Plan (1) Acute on chronic hypoxic respiratory failure: (2) COPD exacerbation: Plan: Patient is 63-year-old male with PMH COPD, chronic hypoxic respiratory failure on 2 L nasal cannula, nocturnal hypoxia, HLD, history of lung nodules presented to ER with complaint of rhinorrhea, sore throat, productive cough, SOB for 1 day duration Acute on chronic respiratory failure with hypoxia Acute COPD exacerbation Chronic oxygen dependency--on 2 L at baseline Suspected pneumonitis/bronchiolitis --CXR: Chronic reticulonodular opacities are again noted compatible with an infectious or inflammatory pneumonitis/bronchiolitis and have mildly worsened from the most recent 01/02/2023 study. Emphysema. -- Negative BioFire --Normal procalcitonin Continue doxycycline, Rocephin Continue nebs Titrate oxygen to keep saturation 88 to 92% Pulmonary hygiene with incentive spirometry, flutter Antitussives as needed Continue home inhalers Titrate oxygen as able Transition IV Solu-Medrol transition to prednisone Will obtain 2 step tomorrow Likely discharge in 1 to 2 days Prediabetes Likely secondary to steroids HbA1c 6.0 Hypertension BP elevated likely due to steroids Increase metoprolol to succinate to 12.5 twice daily Monitor BP adjust medications as needed Added amlodipine 2.5 mg daily (3) Hyperlipemia: Plan: Chronic stable Continue rosuvastatin (4) Lung nodule: Plan: H/O lung nodules Needs follow-up as outpatient DVT Px Lovenox SQ Code Status Full Code Admission and Anticipated Discharge Date Admission Date: May 13, 2023 Subjective Patient is seen and examined at bedside States feeling better today Feels not ready for discharge today Cough continues to improve No significant dyspnea today Denies any nausea, vomiting, chest pain, abdominal pain Review of Systems Review of Systems: All systems reviewed & are unremarkable except as noted in Subjective Physical Exam Physical Exam: Physical Exam: Vitals signs as noted above General Appearance:Moderately built and nourished, no apparent distress Head: normocephalic, Atraumatic Eyes: normal inspection, EOMI Neck: supple, Trachea midline Respiratory/Chest: Decreased breath sounds, CTA , No accessory muscle use Cardiovascular: S1, S2, No murmur Abdomen/GI:Soft, Non tender, Bowel sounds present Extremities/Musculoskeletal:normal inspection, no edema Neurologic/Psych:AAOX3, grossly no focal neurological deficits Skin: normal color, warm Results & Data Results & Data Vital Signs (Past 12 Hours) Vital Signs Temp Pulse Pulse Resp BP Pulse Ox O2 Del Method 05/17/23 12:07 36.5 C 88 16 147/88 H 95 Nasal Cannula 05/17/23 09:40 Nasal Cannula 05/17/23 08:02 36.4 C 67 16 156/81 H 98 Nebulizer 05/17/23 07:45 101 H 14 99 Nasal Cannula 05/17/23 07:16 83 05/17/23 05:02 36.6 C 85 18 156/88 H 98 Nasal Cannula O2 Flow Rate 05/17/23 12:07 2 05/17/23 09:40 2 05/17/23 08:02 05/17/23 07:45 3 05/17/23 07:16 05/17/23 05:02 2 Laboratory Results Short CBC 05/17/23 Range/Units 06:20 WBC 15.32 H (4.8-10.8) K/ul Hgb 11.7 L (14.0-18.0) g/dl Hct 35.4 L (42.0-52.0) % Plt Count 314 (130-400) K/uL BMP 05/17/23 06:20 Sodium 139 Potassium 4.2 Chloride 101 Carbon Dioxide 34 H BUN 21 Creatinine 0.76 Glucose 130 H Calcium 9.2
[2023-05-17] MEDS: amLODIPine BESYLATE 5 MG TAB PO SCH (15:15)
[2023-05-18 07:01] LABS: Hematocrit (blood only) 38.7 % (42.0-52.0); Hemoglobin 12.5 g/dl (14.0-18.0); Mean Corpuscular Hemoglobin 29.4 pg (25.0-34.0); Mean Corpuscular Hgb Conc 32.3 g/dL (32.0-36.0); Mean Corpuscular Volume 91.1 fL (80.0-100.0); Mean Platelet Volume 10.1 fL (9.4-12.4); Nucleated RBC # (auto) 0.02 K/uL (0.00-0.12); Nucleated RBC % (auto) 0.1 %; Platelet Count 316 K/uL (130-400); RDW Coefficient of Variation 13.2 % (11.5-14.5); RDW Standard Deviation 44.1 fL (36.4-46.3); Red Blood Count 4.25 M/uL (4.70-6.10); White Blood Count 18.69 K/ul (4.8-10.8)
[2023-05-18 07:25] LABS: BUN Creatinine Ratio 20.7 (10-20); Calcium 9.2 mg/dl (8.6-10.3); Creatinine Clr Calc Pharmacy 81.3 ml/min; Est GFR (African American) 106.5 ml/min; Est GFR (Non-African American) 91.9 ml/min; Potassium 4.1 mmol/L (3.5-5.1)
--- NOTE | 2023-05-18 12:11 | Hospitalist Progress Note ---
Date of Service May 18, 2023 Assessment & Plan (1) Acute on chronic hypoxic respiratory failure: (2) COPD exacerbation: Plan: Patient is 63-year-old male with PMH COPD, chronic hypoxic respiratory failure on 2 L nasal cannula, nocturnal hypoxia, HLD, history of lung nodules presented to ER with complaint of rhinorrhea, sore throat, productive cough, SOB for 1 day duration Acute on chronic respiratory failure with hypoxia Acute COPD exacerbation Chronic oxygen dependency--on 2 L at baseline Suspected pneumonitis/bronchiolitis --CXR: Chronic reticulonodular opacities are again noted compatible with an infectious or inflammatory pneumonitis/bronchiolitis and have mildly worsened from the most recent 01/02/2023 study. Emphysema. -- Negative BioFire --Normal procalcitonin Continue doxycycline, Rocephin Continue nebs Titrate oxygen to keep saturation 88 to 92% Pulmonary hygiene with incentive spirometry, flutter Antitussives as needed Continue home inhalers Titrate oxygen as able Transition IV Solu-Medrol transition to prednisone 2 step: Needs 2 L at rest and 3 L with activity Plan to discharge home today Prediabetes Likely secondary to steroids HbA1c 6.0 Hypertension BP elevated likely due to steroids Increase metoprolol to succinate to 12.5 twice daily Monitor BP Added amlodipine 5 mg daily (3) Hyperlipemia: Plan: Chronic stable Continue rosuvastatin (4) Lung nodule: Plan: H/O lung nodules Needs follow-up as outpatient DVT Px Lovenox SQ Code Status Full Code Disposition Home Admission and Anticipated Discharge Date Admission Date: May 13, 2023 Subjective Patient is seen and examined at bedside Eager to get discharged Doing well today No significant cough Had 2 step earlier today Denies any nausea, vomiting, chest pain, dyspnea, abdominal pain Review of Systems Review of Systems: All systems reviewed & are unremarkable except as noted in Subjective Physical Exam Physical Exam: Physical Exam: Vitals signs as noted above General Appearance:Moderately built and nourished, no apparent distress Head: normocephalic, Atraumatic Eyes: normal inspection, EOMI Neck: supple, Trachea midline Respiratory/Chest: Decreased breath sounds, CTA , No accessory muscle use Cardiovascular: S1, S2, No murmur Abdomen/GI:Soft, Non tender, Bowel sounds present Extremities/Musculoskeletal:normal inspection, no edema Neurologic/Psych:AAOX3, grossly no focal neurological deficits Skin: normal color, warm Results & Data Results & Data Vital Signs (Past 12 Hours) Vital Signs Temp Pulse Pulse Pulse Pulse Pulse Pulse 05/18/23 09:35 36.5 C 83 83 05/18/23 09:03 05/18/23 07:58 119 H 120 H 109 H 05/18/23 07:45 36.5 C 83 05/18/23 07:31 89 05/18/23 06:56 81 05/18/23 03:56 36.3 C L 81 Pulse Pulse Resp Resp Resp Resp Resp 05/18/23 09:35 16 05/18/23 09:03 05/18/23 07:58 115 H 109 H 23 17 15 15 05/18/23 07:45 16 05/18/23 07:31 14 05/18/23 06:56 05/18/23 03:56 18 Resp BP BP Pulse Ox Pulse Ox Pulse Ox Pulse Ox 05/18/23 09:35 155/88 H 166/92 H 98 05/18/23 09:03 05/18/23 07:58 14 94 87 L 87 L 05/18/23 07:45 166/92 H 98 05/18/23 07:31 97 05/18/23 06:56 05/18/23 03:56 155/88 H 98 Pulse Ox Pulse Ox O2 Del Method O2 Flow Rate O2 Flow Rate O2 Flow Rate O2 Flow Rate 05/18/23 09:35 05/18/23 09:03 Nasal Cannula 2 05/18/23 07:58 93 86 L 3 2 1 05/18/23 07:45 Nasal Cannula 2 05/18/23 07:31 Nasal Cannula 2 05/18/23 06:56 05/18/23 03:56 Room Air O2 Flow Rate 05/18/23 09:35 05/18/23 09:03 05/18/23 07:58 2 05/18/23 07:45 05/18/23 07:31 05/18/23 06:56 05/18/23 03:56 Laboratory Results Short CBC 05/18/23 Range/Units 06:44 WBC 18.69 H (4.8-10.8) K/ul Hgb 12.5 L (14.0-18.0) g/dl Hct 38.7 L (42.0-52.0) % Plt Count 316 (130-400) K/uL BMP 05/18/23 06:44 Sodium 139 Potassium 4.1 Chloride 98 Carbon Dioxide 38 H BUN 18 Creatinine 0.87 Glucose 113 H Calcium 9.2
--- NOTE | 2023-05-18 12:20 | Discharge Summary ---
Date of Service May 18, 2023 Admission HPI Per Admitting Provider Patient is 63-year-old male with PMH COPD, chronic hypoxic respiratory failure on 2 L nasal cannula, nocturnal hypoxia, HLD, history of lung nodules presented to ER with complaint of shortness of breath started yesterday. History obtained from patient as well as outpatient and inpatient chart review. States yesterday started with rhinorrhea, sore throat. States he was feeling lightheaded yesterday. States has chronic cough usually productive clear/white. States yesterday started having yellow sputum production. Shortness of breath started yesterday. Normally does not use Xopenex nebs however last night used 3 times during the night for shortness of breath without much relief. States had tactile fevers, did not take temperature at home. Reports eating and drinking normally. States did not have morning meds today. sick with URI symptoms last week and tested positive for RSV. Reports EMS gave nebulizer treatment and route with some relief for shortness of breath. Denies diaphoresis, N/V/D/C, DAN, dizziness, vision changes, neck pain, CP, orthopnea, palpitations, hemoptysis, choking, otalgia, abdominal pain, paresthesias, extremity weakness, extremity edema, rashes, urinary symptoms. Admission Exam Per Admitting Provider General: +mild distress, WDWN Head: normocephalic, atraumatic Eyes: conjunctiva non-injected, anicteric ENT: normal inspection external ears, nose, mucous membranes moist Neck: supple, trachea midline Lungs: 98% on 2L via nasal cannula, respiratory rate: 24, +dyspnea with speaking in sentences, +diminished breath sounds throughout with faint wheeze CV: tachycardia, rate 118, regular rhythm, no pretibial edema Abd: normal BS, soft, non-tender Ext: no cyanosis, no calf tenderness Neuro: A&O x 3, no focal deficits noted, normal affect Skin: warm, dry Principal Diagnosis Acute on chronic respiratory failure with hypoxia Acute COPD exacerbation Prediabetes Hypertension Discharge Data Allergies Allergy/AdvReac Type Severity Reaction Status Date / Time No Known Allergies Allergy Verified 05/13/23 13:23 Consultations 05/13/23 13:09 ED Decision to Admit Stat Procedures Performed Laboratory Results WBC 18.69 K/ul (4.8-10.8) H 05/18/23 06:44 RBC 4.25 M/uL (4.70-6.10) L 05/18/23 06:44 Hgb 12.5 g/dl (14.0-18.0) L 05/18/23 06:44 Hct 38.7 % (42.0-52.0) L 05/18/23 06:44 MCV 91.1 fL (80.0-100.0) 05/18/23 06:44 MCH 29.4 pg (25.0-34.0) 05/18/23 06:44 MCHC 32.3 g/dL (32.0-36.0) 05/18/23 06:44 RDW Std Deviation 44.1 fL (36.4-46.3) 05/18/23 06:44 RDW Coeff of Lashanda 13.2 % (11.5-14.5) 05/18/23 06:44 Plt Count 316 K/uL (130-400) 05/18/23 06:44 MPV 10.1 fL (9.4-12.4) 05/18/23 06:44 Immature Gran % (Auto) 0.7 % 05/14/23 06:31 Neut % (Auto) 91.1 % 05/14/23 06:31 Lymph % (Auto) 4.8 % 05/14/23 06:31 [place] % (Auto) 3.2 % 05/14/23 06:31 Eos % (Auto) 0.0 % 05/14/23 06:31 Baso % (Auto) 0.2 % 05/14/23 06:31 Neut # (Auto) 13.38 K/uL (1.40-6.50) H 05/14/23 06:31 Lymph # (Auto) 0.70 K/uL (1.20-3.40) L 05/14/23 06:31 [place] # (Auto) 0.47 K/uL (0.11-0.59) 05/14/23 06:31 Eos # (Auto) 0.00 K/uL (0.00-0.50) 05/14/23 06:31 Baso # (Auto) 0.03 K/uL (0.00-0.20) 05/14/23 06:31 Immature Gran # (Auto) 0.11 K/uL (0.01-0.20) 05/14/23 06:31 Absolute Nucleated RBC 0.02 K/uL (0.00-0.12) 05/18/23 06:44 Nucleated RBC % (auto) 0.1 % 05/18/23 06:44 PT 11.6 Seconds (9.0-12.0) 05/13/23 11:29 INR 1.1 (0.9-1.1) 05/13/23 11:29 APTT 34 Seconds (21-31) H 05/13/23 11:29 PTT Ratio 1.2 05/13/23 11:29 VBG pH 7.33 (7.36-7.41) L 05/13/23 11:50 VBG pCO2 47 mmHg (38-50) 05/13/23 11:50 VBG pO2 61 mmHg 05/13/23 11:50 VBG HCO3 25 mmol/L 05/13/23 11:50 VBG O2 Saturation 90.0 % 05/13/23 11:50 VBG Base Excess -1.5 mEq/L 05/13/23 11:50 Sodium 139 mmol/L (136-145) 05/18/23 06:44 Potassium 4.1 mmol/L (3.5-5.1) 05/18/23 06:44 Chloride 98 mmol/L (98-107) 05/18/23 06:44 Carbon Dioxide 38 mmol/L (21-32) H 05/18/23 06:44 Anion Gap 3 (3-11) 05/18/23 06:44 BUN 18 mg/dl (6-23) 05/18/23 06:44 Creatinine 0.87 mg/dl (0.6-1.4) 05/18/23 06:44 Est Cr Clr Drug Dosing 81.3 ml/min 05/18/23 06:44 Est GFR ( Amer) 106.5 ml/min 05/18/23 06:44 Est GFR (Non-Af Amer) 91.9 ml/min 05/18/23 06:44 BUN/Creatinine Ratio 20.7 (10-20) H 05/18/23 06:44 Glucose 113 mg/dl (70-99(Fasting)) H 05/18/23 06:44 Estimat Average Glucose 126 mg/dl 05/15/23 06:17 Hemoglobin A1c 6.0 % (4.5-5.6) H 05/15/23 06:17 Lactate 1.7 mmol/L (0.4-2.0) 05/13/23 11:29 Calcium 9.2 mg/dl (8.6-10.3) 05/18/23 06:44 Magnesium 2.1 mg/dl (1.7-2.4) 05/15/23 06:17 Total Bilirubin 0.6 mg/dl (0.2-1.0) 05/13/23 11:29 Direct Bilirubin 0.2 mg/dl (0-0.2) 05/13/23 11:29 AST 7 U/L (13-39) L 05/13/23 11:29 ALT 7 U/L (7-52) 05/13/23 11:29 Alkaline Phosphatase 75 U/L (34-104) 05/13/23 11:29 Troponin I High Sens 7.5 pg/ml (0-20) 05/13/23 11:29 Total Protein 7.6 gm/dl (6.0-8.3) 05/13/23 11:29 Albumin 4.3 gm/dl (3.4-5.0) 05/13/23 11:29 Procalcitonin 0.33 ng/ml (0-0.5) 05/13/23 11:29 Adenovirus (PCR) Not Detected (NotDetected) 05/13/23 11:37 B. pertussis DNA (PCR) Not Detected (NotDetected) 05/13/23 11:37 B.parapertussis DNA PCR Not Detected (NotDetected) 05/13/23 11:37 C. pneumoniae DNA (PCR) Not Detected (NotDetected) 05/13/23 11:37 Coronavirus OC43 (PCR) Not Detected (NotDetected) 05/13/23 11:37 Coronavirus HKU1 (PCR) Not Detected (NotDetected) 05/13/23 11:37 Coronavirus 229E (PCR) Not Detected (NotDetected) 05/13/23 11:37 SARS-CoV-2 (PCR) Not Detected (NotDetected) 05/13/23 11:37 Coronavirus NL63 (PCR) Not Detected (NotDetected) 05/13/23 11:37 Human Metapneumovir PCR Not Detected (NotDetected) 05/13/23 11:37 Influenza Type A (PCR) Not Detected (NotDetected) 05/13/23 11:37 Influenza Type B (PCR) Not Detected (NotDetected) 05/13/23 11:37 M. pneumoniae (PCR) Not Detected (NotDetected) 05/13/23 11:37 Parainfluenza 1 (PCR) Not Detected (NotDetected) 05/13/23 11:37 Parainfluenza 2 (PCR) Not Detected (NotDetected) 05/13/23 11:37 Parainfluenza 3 (PCR) Not Detected (NotDetected) 05/13/23 11:37 Parainfluenza 4 (PCR) Not Detected (NotDetected) 05/13/23 11:37 RSV (PCR) Not Detected (NotDetected) 05/13/23 11:37 Entero/Rhino (PCR) Not Detected (NotDetected) 05/13/23 11:37 Impressions Chest X-Ray 05/13/23 11:08 XR chest 1V portable HISTORY: 63 years-old Male Sepsis acute cough with fever and sepsis COMPARISON: Chest radiograph 01/02/2023, chest CT 02/09/2022. TECHNIQUE: AP view of the chest FINDINGS: Cardiomediastinal and hilar silhouettes are within normal limits. Emphysema with chronic reticular nodular densities, mildly progressed. Atherosclerosis of the aorta. There is no pneumothorax, pleural effusion or overt pulmonary edema. IMPRESSION: 1. Chronic reticulonodular opacities are again noted compatible with an infectious or inflammatory pneumonitis/bronchiolitis and have mildly worsened from the most recent 01/02/2023 study. 2. Emphysema. ACT 112: Negative or not required by law. The above report was generated using voice recognition software. It may contain grammatical, syntax or spelling errors. Electronically signed by: Pedro Luis Mahmood M.D. 05/13/2023 12:22 PM Hospital Course (1) Acute on chronic hypoxic respiratory failure: (2) COPD exacerbation: Patient is 63-year-old male with PMH COPD, chronic hypoxic respiratory failure on 2 L nasal cannula, nocturnal hypoxia, HLD, history of lung nodules presented to ER with complaint of rhinorrhea, sore throat, productive cough, SOB for 1 day duration Acute on chronic respiratory failure with hypoxia Acute COPD exacerbation Chronic oxygen dependency--on 2 L at baseline Suspected pneumonitis/bronchiolitis --CXR: Chronic reticulonodular opacities are again noted compatible with an infectious or inflammatory pneumonitis/bronchiolitis and have mildly worsened from the most recent 01/02/2023 study. Emphysema. -- Negative BioFire --Normal procalcitonin Continue doxycycline, Rocephin Continue nebs Titrate oxygen to keep saturation 88 to 92% Pulmonary hygiene with incentive spirometry, flutter Antitussives as needed Continue home inhalers Titrate oxygen as able Transition IV Solu-Medrol transition to prednisone 2 step: Needs 2 L at rest and 3 L with activity Plan to discharge home today Prediabetes Likely secondary to steroids HbA1c 6.0 Hypertension BP elevated likely due to steroids Increase metoprolol to succinate to 12.5 twice daily Monitor BP Added amlodipine 5 mg daily (3) Hyperlipemia: Chronic stable Continue rosuvastatin (4) Lung nodule: H/O lung nodules Needs follow-up as outpatient DVT Px Lovenox SQ Code Status Full Code Disposition Home Total Time Total Time Spent Total Time Spent (In Minutes): 54 minutes Discharge Plan Discharge Items Patient Disposition: Home - Self-Care Reason For Visit: COPD EXAC Discharge Diagnosis: Acute on chronic respiratory failure with hypoxia Acute COPD exacerbation Prediabetes Hypertension Activity: Per Instructions section Exercise/Sports: Wait until after follow-up appointment Non-emergency contact: Primary Care Provider and Solution Design And Analysis Manager Call non-emergency contact if: you have any medication questions, your symptoms worsen, your pain is concerning for you and you have a fever Follow-up/Referrals: Edelmira Cavanaugh MD [Primary Care Provider] - (Date & Time 05/19/2023 1:00 PM Provider Edelmira Cavanaugh MD Department General Internal Medicine [facility] ) Diet: Heart Healthy Addtl Attending Provider Instructions: Follow-up with your primary care physician on 05/19/2023 1:00 PM as scheduled Follow-up with your floor worker well service in 3 to 4 weeks as recommended -- Complete the prednisone tapering course and antibiotics as prescribed --Your final blood cultures are pending at the time of discharge. Follow-up with your physician for results. Prednisone tapering course Start taking prednisone 30 mg daily for 2 days, then take 20 mg daily for 2 days, then take 10 mg daily for 2 days and stop -- Monitor your blood pressure regularly at home. Discuss with your physician for further adjustment of medications as needed. -- Use supplemental oxygen via nasal cannula 2 L at rest and 3 L with activity as advised Seek immediate medical attention if your symptoms reoccur or worsen Please take all medications as instructed on discharge list below. Please call if you have any questions or problems. You can reach a [facility] hospitalist on duty at [facility] 24 hours a day by calling [phone] Pending Studies at Discharge: Yes Studies:: Blood Cultures Stand-Alone Forms: My [facility], Smoking Cessation Medications and DC Order Prescriptions: New doxycycline hyclate 100 mg Capsule 100 mg PO BID Qty: 4 0RF amlodipine [Norvasc] 5 mg Tablet 5 mg PO QAM Qty: 30 0RF prednisone 10 mg tablet 10 mg PO DIRECTED Qty: 12 0RF Rx Instructions: Starting prednisone 30 mg daily for 2 days, then take 20 mg daily for 2 days, then take 10 mg daily for 2 days and stop cefdinir 300 mg capsule 300 mg PO BID Qty: 4 0RF Continued aspirin 81 mg Tablet,Delayed Release (Dr/Ec) 81 mg PO DAILY rosuvastatin 20 mg tablet 20 mg PO DAILY Trelegy Ellipta 100-62.5-25 mcg blister with device 1 inh INHALATION DAILY montelukast 10 mg Tablet 10 mg PO HS Qty: 30 0RF Men's Daily Formula 400-20-300 mcg Tablet 1 tab PO DAILY levalbuterol HCl 1.25 mg/3 mL solution for nebulization 1.25 mg INHALATION Q8H PRN (Reason: Shortness Of Breath Or Wheezing) Changed metoprolol succinate 25 mg tablet extended release 24 hr 12.5 mg PO BID Qty: 30 0RF Discharge Orders: Discharge Order (Routine); Ordered 05/18/23 Ordered By: Polo Scott/Other Patient Handouts: Prediabetes, 5 Steps for Eating Healthier Admission Data Admit Date/Time: 05/13/23 13:47 Attending Provider: Polo Collier Admit Provider: Rosalia Appiah Primary Care Provider: Edelmira Cavanaugh Other Providers: Rosalia Appiah
[2023-05-19] MEDS ORDERED: predniSONE 10 MG TABLET PO SCH (09:00)
== END 2023-05-18 12:53 | disposition home or self-care (01) | DRG 190 ==
LOC: ED 11:00 → EDINP 13:47 → SUATTDRO 13:47 → 2N 22:43

== ENCOUNTER 2024-07-11 12:49 | Inpatient (IN) ==
--- NOTE | 2024-07-11 13:19 | Emergency Department Note ---
Impression & Plan Acute exacerbation of chronic obstructive pulmonary disease, Pneumothorax ED Provider Note NAME: JENNIE BRIONES AGE: 64 SEX: M : 1960 ARRIVES VIA: Ambulance INFORMANT: Patient, EMS ED PROVIDER(S): Aj García DO CHIEF COMPLAINT: Difficulty breathing HPI: The patient is a 64-year-old male who presented to the emergency department for an evaluation of difficulty breathing. The patient states he started having symptoms several days ago. The patient has been using his outpatient medications as instructed. The patient did a breathing treatment prior to calling 911. On arrival the patient did receive Solu-Medrol as well as another DuoNeb treatment. The patient states he only feels minimally improved. He does wear oxygen at home normally. He normally wears 2 L. He does not have a pulmonary doctor primarily at this time. The patient denies having any hemoptysis. He denies having any leg swelling or leg pain. He denies having any chest pain. ROS: See above HPI for pertinent positives & negatives. A total of 10 systems reviewed and were otherwise negative. PAST MEDICAL HISTORY: See Below PAST SURGICAL HISTORY: See Below FAMILY HISTORY: See Below SOCIAL HISTORY: See Below HOME MEDICATIONS: See Below ALLERGIES: See Below VITALS: See Below PHYSICAL EXAMINATION: GENERAL: The patient is awake and alert. The patient is somewhat anxious appearing. EYES: The conjunctivae are clear. The pupils are round and reactive. EARS, NOSE, MOUTH AND THROAT: The nose is without any evidence of any deformity. NECK: The neck is nontender and supple. RESPIRATORY: Pursed lip breathing was noted. Diminished breath sounds are noted throughout. There was conversation dyspnea as well. CARDIOVASCULAR: Tachycardic and irregular heart sounds were noted to auscultation. There is no definite murmur. GASTROINTESTINAL: The abdomen is soft. Abdomen is nontender. MUSCULOSKELETAL/EXTREMITIES: There is no evidence of gross deformity full range of motion is noted in the hips and shoulders. SKIN: There is no obvious evidence of any rash. There are no petechiae, pallor or cyanosis noted. NEUROLOGIC: Patient is awake alert and oriented x3 MEDICAL DECISION MAKING: The patient is a 64-year-old male who presented to the emergency department for shortness of breath. The patient has a history of COPD. He started noticing worsening symptoms over the last 24 hours. The patient was treated with DuoNeb therapy. He was also given IV steroids prior to arrival. He was further treated with DuoNeb therapy in the emergency department. He was then treated with supplemental oxygen. The patient was feeling somewhat improved on reevaluation but chest x-ray appears to be consistent with a pneumothorax. I discussed the case with the ICU group. They have agreed to evaluate the patient in the emergency department for treatment of pneumothorax. I also discussed the patient's condition with the on-call [facility] hospitalist. Triage Nursing notes reviewed. Prior medical records reviewed Vital Signs: reviewed and remarkable for tachycardia. Differential diagnosis: Reactive airway disease, pneumonia, pneumothorax, COPD, CHF, infections, cardiac ischemia, pulmonary embolism, musculoskeletal, gastrointestinal, as well as other pathologies. ER treatment provided: See below Diagnostics interpreted by me: ECG: EKG was obtained in the emergency department. My interpretation is sinus tachycardia at 120 bpm. No PVCs were noted. Nonspecific ST segment abnormalities are noted. This was compared to a tracing from May 14, 2023. No changes were noted. Cardiac Monitoring: An order was placed for continuous cardiac monitoring. The monitor shows a rate of 124 bpm with sinus tachycardia. Laboratory studies: As stated above and show below. Imaging studies: See below. Radiographic imaging was reviewed by myself Consultation(s): I discussed this case with Dr. Calderón who is on-call for the [facility] hospitalist group. I discussed his case with Jackson who is on for the ICU in regards to the pneumothorax. Past Med/Surg History Problem List (Updated 07/11/24 @ 14:34 by Aj García DO) Pneumothorax (Acute) Acute exacerbation of chronic obstructive pulmonary disease (Acute) Nocturnal hypoxia Lung nodule Acute on chronic hypoxic respiratory failure Pneumonia (Acute) COVID-19 (Acute) COPD exacerbation (Acute) COPD (chronic obstructive pulmonary disease) (Acute) inhaler/nebulizer/oxygen Hyperlipemia (Chronic) Medical History Colon adenoma Hyperlipidemia On home oxygen therapy 2L N/C hs and prn Surgical History History of arthroscopy of right shoulder History of colonoscopy with polypectomy History of mandibular surgery History of tooth extraction all teeth History of bronchoscopy H/O rotator cuff surgery Family History Mother Lung cancer Other No family history of adverse response to anesthesia Social History Smoking Status: Former smoker Tobacco Type: Cigarettes Cigarettes Per Day: 40; Second Hand Exposure: Yes (parents smoked/ smokes); Do You Dip or Chew Tobacco: No; Hx Alcohol Use: No Hx Substance Use: No Preferred Language: Macedonian Communication Ability: Effective Miller Apprentice Required: No Beliefs That Will Affect Care: None marital status: Current Living Situation: Alone and Spouse current occupational status: unemployed and disabled Feels Safe at Home: Yes Assistive Devices: Oxygen - Continuous Allergies Allergies Allergy/AdvReac Type Severity Reaction Status Date / Time No Known Allergies Allergy Verified 05/13/23 13:23 Home Meds Home Medications Medication Instructions Recorded Confirmed aspirin 81 mg tablet,delayed 81 mg PO DAILY 01/02/23 05/13/23 release fluticasone fur. 100 mcg-umeclid 1 inh inhalation DAILY 01/02/23 05/13/23 62.5 mcg-vilant 25 mcg inhalat.powder (Trelegy Ellipta) rosuvastatin 20 mg tablet 20 mg PO DAILY 01/02/23 05/13/23 levalbuterol HCl 1.25 mg/3 mL 1.25 mg inhalation Q8H PRN 05/13/23 05/13/23 solution for nebulization Shortness Of Breath Or Wheezing gptbgndp-alhcifvb-qivjt acid 400 1 tab PO DAILY 05/13/23 05/13/23 mcg-vit K 20 mcg-lycop 300 mcg tablet (Men's Daily Formula) Previous Rx's Medication Instructions Recorded montelukast 10 mg tablet 10 mg PO HS #30 tabs 01/05/23 amlodipine 5 mg tablet (Norvasc) 5 mg PO QAM #30 tabs 05/18/23 cefdinir 300 mg capsule 300 mg PO BID #4 caps 05/18/23 doxycycline hyclate 100 mg capsule 100 mg PO BID #4 caps 05/18/23 metoprolol succinate 25 mg 12.5 mg (1/2 x 25 mg) PO BID #30 05/18/23 tablet,extended release 24 hr tabs prednisone 10 mg tablet 10 mg PO DIRECTED #12 tabs 05/18/23 Results & Data (ED) Vital Signs Vital Signs - 24 hr 07/11/24 12:58 07/11/24 12:58 07/11/24 12:58 Temperature 36.7 C 36.7 C Temperature Source Oral Oral Pulse Rate 120 H Pulse Rate [Apical] 120 H Respiratory Rate 17 20 Respiratory Effort / Characteristics Non-Labored Spontaneous Spontaneous Respiratory Depth Normal Respiratory Pattern Regular Blood Pressure 162/106 H Blood Pressure [Left Arm] 162/106 H Blood Pressure Mean 124 Blood Pressure Mean [Left Arm] 124 Blood Pressure Position Semi-fowlers Blood Pressure Position [Left Arm] Semi-fowlers Pulse Oximetry 98 98 Oxygen Delivery Method Nasal Cannula Nasal Cannula Nasal Cannula Oxygen Flow Rate 2 2 2 Sepsis Recent Fever Within 48 Hours No Sepsis New/Unexplained Change in Mental Status N/A Sepsis Action Taken by Nursing No Action Required 07/11/24 13:08 07/11/24 14:07 Temperature Temperature Source Pulse Rate 119 H Pulse Rate [Apical] 124 H Respiratory Rate 22 Respiratory Effort / Characteristics Spontaneous Respiratory Depth Respiratory Pattern Blood Pressure Blood Pressure [Left Arm] 154/85 H Blood Pressure Mean Blood Pressure Mean [Left Arm] 108 Blood Pressure Position Blood Pressure Position [Left Arm] Semi-fowlers Pulse Oximetry 99 Oxygen Delivery Method Nasal Cannula Oxygen Flow Rate 2 Sepsis Recent Fever Within 48 Hours Sepsis New/Unexplained Change in Mental Status Sepsis Action Taken by Correction Medications Current Medication List: was personally reviewed by me Laboratory Data Attestation: I reviewed the patient's lab results. 07/11/24 13:35 07/11/24 13:35 Lab Results 07/11/24 Range/Units 13:35 WBC 10.99 H (4.8-10.8) K/ul RBC 4.72 (4.70-6.10) M/uL Hgb 14.5 (14.0-18.0) g/dl Hct 44.5 (42.0-52.0) % MCV 94.3 (80.0-100.0) fL MCH 30.7 (25.0-34.0) pg MCHC 32.6 (32.0-36.0) g/dL RDW Std Deviation 43.7 (36.4-46.3) fL RDW Coeff of Lashanda 12.7 (11.5-14.5) % Plt Count 273 (130-400) K/uL MPV 10.0 (9.4-12.4) fL Immature Gran % (Auto) 0.4 % Neut % (Auto) 75.3 % Lymph % (Auto) 16.7 % [place] % (Auto) 5.8 % Eos % (Auto) 1.1 % Baso % (Auto) 0.7 % Neut # (Auto) 8.28 H (1.40-6.50) K/uL Lymph # (Auto) 1.83 (1.20-3.40) K/uL [place] # (Auto) 0.64 H (0.11-0.59) K/uL Eos # (Auto) 0.12 (0.00-0.50) K/uL Baso # (Auto) 0.08 (0.00-0.20) K/uL Immature Gran # (Auto) 0.04 (0.01-0.20) K/uL PT 10.0 (9.0-12.0) Seconds INR 0.9 (0.9-1.1) APTT 27 (21-31) Seconds PTT Ratio 1.0 VBG pH 7.29 L (7.36-7.41) VBG pCO2 64 H (38-50) mmHg VBG pO2 35 mmHg VBG HCO3 31 mmol/L VBG O2 Saturation 62.3 % VBG Base Excess 2.3 mEq/L Sodium 140 (136-145) mmol/L Potassium 3.9 (3.5-5.1) mmol/L Chloride 103 (98-107) mmol/L Carbon Dioxide 31 (21-32) mmol/L Anion Gap 6 (3-11) BUN 11 (6-23) mg/dl Creatinine 1.01 (0.6-1.4) mg/dl Est Cr Clr Drug Dosing 75.5 ml/min eGFR 83.05 BUN/Creatinine Ratio 10.9 (10-20) Glucose 125 H (70-99(Fasting)) mg/dl Calcium 9.6 (8.6-10.3) mg/dl Magnesium 2.3 (1.7-2.4) mg/dl Total Bilirubin 0.3 (0.2-1.0) mg/dl AST 12 L (13-39) U/L ALT 14 (7-52) U/L Alkaline Phosphatase 77 (34-104) U/L Troponin I High Sens < 2.3 (0-20) pg/ml Total Protein 8.0 (6.0-8.3) gm/dl Albumin 5.0 (3.4-5.0) gm/dl Globulin 3.0 (2.5-4.0) gm/dl Albumin/Globulin Ratio 1.7 (0.9-2) Administered Medications Discontinued Medications Albuterol (Albut/Ipratrop 3mg/0.5mg Neb 3 Ml Vial) 3 ml NEB NOW STA; Protocol Stop: 07/11/24 13:14 Last Admin: 07/11/24 13:25 Dose: 3 ml Documented By: [facility] Imaging Data Attestation: I personally reviewed and interpreted this imaging study as follows: My Impression: 1 view chest x-ray was obtained in the emergency department. My interpretation is hyperinflation, no definite filtrate, left-sided pneumothorax noted, final report below. Radiologist's Impression: Chest X-Ray 07/11/24 13:13 XR chest 1V portable CLINICAL HISTORY: Dyspnea COMPARISON STUDY: 05/13/2023 FINDINGS: There is an interval small to moderate left pneumothorax with 2 cm pleural separation laterally and at the left apex. There is no consolidation or pleural effusion. IMPRESSION: Small to moderate left pneumothorax. ACT 112: Negative or not required by law. Electronically signed by: Jennie Mcgarry M.D. 07/11/2024 1:31 PM Discharge Plan Visit Data Chief Complaint: Shortness of Breath/Dyspnea Stated Complaint: SOB ED Provider: Aj García Discharge Problem: Acute exacerbation of chronic obstructive pulmonary disease, Pneumothorax Patient Disposition: Being Evaluated by Hospitalist Forms Stand Alone Forms: My [facility] Prescriptions Prescriptions: No Action aspirin 81 mg Tablet,Delayed Release (Dr/Ec) 81 mg PO DAILY rosuvastatin 20 mg tablet 20 mg PO DAILY Trelegy Ellipta 100-62.5-25 mcg blister with device 1 inh INHALATION DAILY montelukast 10 mg Tablet 10 mg PO HS Qty: 30 0RF Men's Daily Formula 400-20-300 mcg Tablet 1 tab PO DAILY levalbuterol HCl 1.25 mg/3 mL solution for nebulization 1.25 mg INHALATION Q8H PRN (Reason: Shortness Of Breath Or Wheezing) doxycycline hyclate 100 mg Capsule 100 mg PO BID Qty: 4 0RF amlodipine [Norvasc] 5 mg Tablet 5 mg PO QAM Qty: 30 0RF prednisone 10 mg tablet 10 mg PO DIRECTED Qty: 12 0RF Rx Instructions: Starting prednisone 30 mg daily for 2 days, then take 20 mg daily for 2 days, then take 10 mg daily for 2 days and stop cefdinir 300 mg capsule 300 mg PO BID Qty: 4 0RF metoprolol succinate 25 mg tablet extended release 24 hr 12.5 mg PO BID Qty: 30 0RF Referrals Referrals: Edelmira Cavanaugh MD [Outside Practitioners] -
[2024-07-11] MEDS: ALBUT/IPRATROP 3MG/0.5MG NEB 3 ML VIAL NEB STA (13:25)
--- NOTE | 2024-07-11 13:32 | XRay Report ---
XR chest 1V portable CLINICAL HISTORY: Dyspnea COMPARISON STUDY: 05/13/2023 FINDINGS: There is an interval small to moderate left pneumothorax with 2 cm pleural separation later ally and at the left apex. There is no consolidation or pleural effusion. IMPRESSION: Small to moderate left pneumothorax. ACT 112: Negative or not required by law. Electronically signed by: Liang Mcgarry M.D. 07/11/2024 1:31 PM
[2024-07-11 13:57] LABS: Basophils # (auto) 0.08 K/uL (0.00-0.20); Basophils % (auto) 0.7 %; Eosinophils # (auto) 0.12 K/uL (0.00-0.50); Eosinophils % (auto) 1.1 %; Hematocrit (blood only) 44.5 % (42.0-52.0); Hemoglobin 14.5 g/dl (14.0-18.0); Immature Granulocytes # (auto) 0.04 K/uL (0.01-0.20); Immature Granulocytes % (auto) 0.4 %; Lymphocytes # (auto) 1.83 K/uL (1.20-3.40); Lymphocytes % (auto) 16.7 %; Mean Corpuscular Hemoglobin 30.7 pg (25.0-34.0); Mean Corpuscular Hgb Conc 32.6 g/dL (32.0-36.0); Mean Corpuscular Volume 94.3 fL (80.0-100.0); Monocytes # (auto) 0.64 K/uL (0.11-0.59); Monocytes % (auto) 5.8 %; Neutrophils # (auto) 8.28 K/uL (1.40-6.50); Neutrophils % (auto) 75.3 %; Platelet Count 273 K/uL (130-400); RDW Coefficient of Variation 12.7 % (11.5-14.5); RDW Standard Deviation 43.7 fL (36.4-46.3); Red Blood Count 4.72 M/uL (4.70-6.10); White Blood Count 10.99 K/ul (4.8-10.8)
[2024-07-11 14:05] LABS: Base Excess VBG 2.3 mEq/L; HCO3 VBG 31 mmol/L; Oxygen Saturation VBG 62.3 %; PCO2 VBG 64 mmHg (38-50); PO2 VBG 35 mmHg; pH VBG 7.29 (7.36-7.41)
[2024-07-11 14:17] LABS: Alanine Aminotransferase 14 U/L (7-52); Albumin Globulin Ratio 1.7 (0.9-2); Alkaline Phosphatase 77 U/L (34-104); Anion Gap 6 (3-11); Aspartate Aminotransferase 12 U/L (13-39); BUN Creatinine Ratio 10.9 (10-20); Bilirubin,Total 0.3 mg/dl (0.2-1.0); Blood Urea Nitrogen 11 mg/dl (6-23); Calcium 9.6 mg/dl (8.6-10.3); Carbon Dioxide 31 mmol/L (21-32); Chloride 103 mmol/L (98-107); Creatinine Clr Calc Pharmacy 75.5 ml/min; Glucose 125 mg/dl (70-99(Fasting)); Magnesium 2.3 mg/dl (1.7-2.4); Potassium 3.9 mmol/L (3.5-5.1); Sodium 140 mmol/L (136-145)
[2024-07-11 14:22] LABS: Troponin I High Sensitivity < 2.3 pg/ml (0-20)
--- NOTE | 2024-07-11 14:27 | History & Physical Report ---
Date of Service July 11, 2024 Assessment & Plan (1) Pneumothorax: (2) Acute exacerbation of chronic obstructive pulmonary disease: Plan Patient is 64-year-old male with PMHx significant for COPD, chronic hypoxic respiratory failure on 2 L nasal cannula, nocturnal hypoxia, HLD, history of lung nodules, prediabetes presenting with worsening SOB despite nebulizer treatments at home. Pneumothorax, Left Acute URI Possible COPD Exacerbation Acute on Chronic Hypoxic and Hypercapnic respiratory failure pt presenting with SOB not improving with breathing treatments, mild distress, pursed lips Chest XRAY noting small to moderate pneumothorax on the Left respiratory testing negative for flu, covid and RSV VBG noting pH of 7.29, pCO2 of 64 and HCO3 of 31 received a breathing treatment and dose of solumedrol en route to the hospital Pulmonology consulted, appreciate recs -s/p L chest tube placement on 07/11 -follow repeat chest XRAYs oxygen supplementation as needed nebs prn Per pulmonology does not appear pt has a COPD Exacerbation, no need for steroids or abx at this time Continue home inhalers Continue to monitor Continue other home meds as ordered Diet: HH DVT prophylaxis: SCDs at this time Dispo: admit to PCU/tele History of Present Illness Primary Care Provider: NO PCP Patient is 64-year-old male with PMHx significant for COPD, chronic hypoxic respiratory failure on 2 L nasal cannula, nocturnal hypoxia, HLD, history of lung nodules presenting with worsening SOB despite nebulizer treatments at home. Hx obtained from pt. He notes he started having a cough and runny nose 2 days ago. Then started with left sided flank or back pain that was unrelenting. Has a hx of COPD and uses 2L of oxygen at baseline. States that he tried increasing his oxygen level at home and doing a breathing treatment with no significant relief. Eventually called 911 today and was given Solumedrol and another breathing treatment en route with no significant relief. Workup in the ED showed a left sided pneumothorax. He is asking what the procedure for chest tube placement will be like at the time of exam. He notes that he no longer smokes, quit about 4 years ago. Unclear about his home medications or who his PCP is. States he does not follow with Pulmonology. Allergies Allergy/AdvReac Type Severity Reaction Status Date / Time No Known Allergies Allergy Verified 05/13/23 13:23 Home Medications Medication Instructions Recorded Confirmed Type aspirin 81 mg tablet,delayed 81 mg PO DAILY 01/02/23 07/11/24 History release fluticasone fur. 100 mcg-umeclid 1 inh inhalation DAILY 01/02/23 07/11/24 History 62.5 mcg-vilant 25 mcg inhalat.powder (Trelegy Ellipta) rosuvastatin 20 mg tablet 20 mg PO DAILY 01/02/23 07/11/24 History montelukast 10 mg tablet 10 mg PO HS #30 tabs 01/05/23 07/11/24 Rx levalbuterol HCl 1.25 mg/3 mL 1.25 mg inhalation Q8H PRN 05/13/23 07/11/24 History solution for nebulization Shortness Of Breath Or Wheezing amlodipine 5 mg tablet (Norvasc) 5 mg PO QAM #30 tabs 05/18/23 07/11/24 Rx metoprolol succinate 25 mg 12.5 mg PO HS 07/11/24 07/11/24 History tablet,extended release 24 hr Past Med/Surg History Problem List (Updated 07/11/24 @ 14:34 by Aj García DO) Pneumothorax (Acute) Acute exacerbation of chronic obstructive pulmonary disease (Acute) Nocturnal hypoxia Lung nodule Acute on chronic hypoxic respiratory failure Pneumonia (Acute) COVID-19 (Acute) COPD exacerbation (Acute) COPD (chronic obstructive pulmonary disease) (Acute) inhaler/nebulizer/oxygen Hyperlipemia (Chronic) Medical History Colon adenoma Hyperlipidemia On home oxygen therapy 2L N/C hs and prn Surgical History History of arthroscopy of right shoulder History of colonoscopy with polypectomy History of mandibular surgery History of tooth extraction all teeth History of bronchoscopy H/O rotator cuff surgery Family History Mother Lung cancer Other No family history of adverse response to anesthesia Social History Smoking Status: Former smoker Tobacco Type: Cigarettes Cigarettes Per Day: 40; Second Hand Exposure: Yes (parents smoked/ smokes); Do You Dip or Chew Tobacco: No; Hx Alcohol Use: No Hx Substance Use: No Preferred Language: Turkmen Communication Ability: Effective Supervisor Show Operations Required: No Beliefs That Will Affect Care: None marital status: Current Living Situation: Alone and Spouse current occupational status: unemployed and disabled Feels Safe at Home: Yes Assistive Devices: Oxygen - Continuous Review of Systems Review of Systems: All systems reviewed & are unremarkable except as noted in Subjective Physical Exam Physical Exam: General: Alert, oriented. Mild distress Psych: Appropriate mood and affect Neuro: No gross deficits HEENT: NC/AT, NC in nares CV: RRR Resp: Breathing through pursed lips, Breath sounds decreased bilaterally, increased effort of breathing Abdomen: Soft, nontender, nondistended Extremities: No edema in lower extremities bilaterally. Results & Data Results & Data Vital Signs (Past 12 Hours) Vital Signs Temp Pulse Pulse Resp BP BP Pulse Ox 07/11/24 14:07 124 H 22 154/85 H 99 07/11/24 13:08 119 H 07/11/24 12:58 36.7 C 120 H 20 162/106 H 98 07/11/24 12:58 07/11/24 12:58 36.7 C 120 H 17 162/106 H 98 O2 Del Method O2 Flow Rate 07/11/24 14:07 Nasal Cannula 2 07/11/24 13:08 07/11/24 12:58 Nasal Cannula 2 07/11/24 12:58 Nasal Cannula 2 07/11/24 12:58 Nasal Cannula 2 Diagnostic Findings Chest X-Ray 07/11/24 13:13 XR chest 1V portable CLINICAL HISTORY: Dyspnea COMPARISON STUDY: 05/13/2023 FINDINGS: There is an interval small to moderate left pneumothorax with 2 cm pleural separation laterally and at the left apex. There is no consolidation or pleural effusion. IMPRESSION: Small to moderate left pneumothorax. ACT 112: Negative or not required by law. Electronically signed by: Liang Mcgarry M.D. 07/11/2024 1:31 PM
[2024-07-11 14:30] LABS: INR 0.9 (0.9-1.1); Partial Thromboplastin Time 27 Seconds (21-31)
[2024-07-11] MEDS ORDERED: LEVALBUTEROL HCL 0.63 MG/3 ML NEB NEB PRN (14:41)
[2024-07-11 14:43] LABS: Influenza A virus by PCR Negative (Neg); Influenza B virus by PCR Negative (Neg); RSV by PCR Negative (Neg); SARS CoV2 RNA(COVID-19) Ceph NEGATIVE (Negative)
[2024-07-11] MEDS: KETOROLAC 30 MG/ML VIAL ONE (14:49)
[2024-07-11] MEDS: LIDOCAINE 1% LOCAL 20 ML VIAL ONE (14:52)
[2024-07-11] MEDS: KETOROLAC 30 MG/ML VIAL IV ONE (14:53)
[2024-07-11] MEDS ORDERED: KETOROLAC TROMETHAMINE 15 MG/ML VIAL IV PRN ×2 (15:02→16:19)
--- NOTE | 2024-07-11 15:03 | Pulmonary Consultation ---
Date of Consultation July 11, 2024 Assessment & Plan (1) Pneumothorax: (2) Acute on chronic hypoxic respiratory failure: (3) COPD (chronic obstructive pulmonary disease): Plan Impression: 64-year-old male with severe centrilobular and paraseptal emphysematous changes identified on prior CT scan admitted with secondary pneumothorax. He is now status post 14 Lithuanian pigtail catheter placed in the left posterior axillary line at the level of the nipple with repeat chest x-ray pending. Recommendations: 1. Pneumothorax: Continue current chest tube at 10 cm of wall suction. Daily chest x-ray. Consider clamping trials in the morning if he does well. If he has persistent airleak, additional evaluation may be warranted but the airleak appears to have resolved post chest tube placement. 2. COPD: The patient does not have signs or symptoms of an exacerbation. No indication for steroids or antibiotics currently. Continue bronchodilators in the form of Trelegy or pharmacy interchange and as needed DuoNebs. 3. Hypoxemia: Continue supplemental oxygen titrated to keep saturations at or above 90%. 4. Management the patient's other medical issues deferred to the primary admitting service. He can follow-up with [facility] pulmonary discharge History of Present Illness History of Present Illness Asked by hospitalist and ER staff to evaluate this patient with spontaneous secondary pneumothorax. History is obtained from discussion with the patient as well as review the electronic medical record. Patient is a 64-year-old male followed by the [facility] pulmonary group with advanced COPD (PFTs not available). He has chronic hypoxemic respiratory failure and has been using oxygen for about 6 years. He has been tobacco free for over 4 years but prior to this had about [id number] history of tobacco abuse. He states that last evening he felt a pop in his left chest. This was associated with progressive shortness of breath and pain. This prompted him to seek care in the emergency room today. A chest x-ray demonstrated a small pneumothorax. The patient was tachycardic tachypneic and short of breath and therefore small bore tube thoracostomy was warranted. See separate procedure note. Post procedure the patient states his pain and breathing are much improved. He has not had prior pneumothoraces that he is aware of. His outpatient regiment consists of Trelegy, Singulair, and as needed short acting beta agonist. He denies any trauma. Significant travel history. He does not report significant purulent sputum. Allergies Allergy/AdvReac Type Severity Reaction Status Date / Time No Known Allergies Allergy Verified 05/13/23 13:23 Home Medications Medication Instructions Recorded Confirmed Type aspirin 81 mg tablet,delayed 81 mg PO DAILY 01/02/23 07/11/24 History release fluticasone fur. 100 mcg-umeclid 1 inh inhalation DAILY 01/02/23 07/11/24 History 62.5 mcg-vilant 25 mcg inhalat.powder (Trelegy Ellipta) rosuvastatin 20 mg tablet 20 mg PO DAILY 01/02/23 07/11/24 History montelukast 10 mg tablet 10 mg PO HS #30 tabs 01/05/23 07/11/24 Rx levalbuterol HCl 1.25 mg/3 mL 1.25 mg inhalation Q8H PRN 05/13/23 07/11/24 History solution for nebulization Shortness Of Breath Or Wheezing amlodipine 5 mg tablet (Norvasc) 5 mg PO QAM #30 tabs 05/18/23 07/11/24 Rx metoprolol succinate 25 mg 12.5 mg PO HS 07/11/24 07/11/24 History tablet,extended release 24 hr Patient History Medical History Colon adenoma Hyperlipidemia On home oxygen therapy 2L N/C hs and prn Surgical History History of arthroscopy of right shoulder History of colonoscopy with polypectomy History of mandibular surgery History of tooth extraction all teeth History of bronchoscopy H/O rotator cuff surgery Family History Mother Lung cancer Other No family history of adverse response to anesthesia Social History Smoking Status: Former smoker Tobacco Type: Cigarettes Cigarettes Per Day: 40; Second Hand Exposure: Yes (parents smoked/ smokes); Do You Dip or Chew Tobacco: No; Hx Alcohol Use: No Hx Substance Use: No Preferred Language: Fijian Communication Ability: Effective Angiographer Required: No Beliefs That Will Affect Care: None marital status: Current Living Situation: Alone and Spouse current occupational status: unemployed and disabled Feels Safe at Home: Yes Assistive Devices: Oxygen - Continuous Review of Systems Review of Systems: Please refer to admission H&P. No additions or deletions Physical Exam Constitutional: WD/WN, vitals as above ENMT: No crepitus in the neck Neck: trachea midline, no thyromegaly Respiratory: + tachypneic; no respiratory distress, n o labored breathing and no cough Auscultation: + diminished lung sounds; no rhonchi and no wheezes Cardiovascular: RRR, no murmur, no edema Gastrointestinal (Abdomen): normal bowel sounds, soft, nontender, no hepatosplenomegaly Musculoskeletal: Extremities: extremities normal to inspection Skin: no rashes, warm and dry Neurologic: Nonfocal exam Lymphatic: no cervical lymphadenopathy Results & Data Results & Data Vital Signs (Past 12 Hours) Vital Signs Temp Pulse Pulse Resp BP BP Pulse Ox 07/11/24 14:07 124 H 22 154/85 H 99 07/11/24 13:08 119 H 07/11/24 12:58 36.7 C 120 H 20 162/106 H 98 07/11/24 12:58 07/11/24 12:58 36.7 C 120 H 17 162/106 H 98 O2 Del Method O2 Flow Rate 07/11/24 14:07 Nasal Cannula 2 07/11/24 13:08 07/11/24 12:58 Nasal Cannula 2 07/11/24 12:58 Nasal Cannula 2 07/11/24 12:58 Nasal Cannula 2 Critical Care Results & Data Vital Signs (Past 12 Hours) Vital Signs Temp Pulse Pulse Resp BP BP Pulse Ox 07/11/24 14:07 124 H 22 154/85 H 99 07/11/24 13:08 119 H 07/11/24 12:58 36.7 C 120 H 20 162/106 H 98 07/11/24 12:58 07/11/24 12:58 36.7 C 120 H 17 162/106 H 98 O2 Del Method O2 Flow Rate 07/11/24 14:07 Nasal Cannula 2 07/11/24 13:08 07/11/24 12:58 Nasal Cannula 2 07/11/24 12:58 Nasal Cannula 2 07/11/24 12:58 Nasal Cannula 2 Lab & Micro Results (Past 24 Hours) RBC 4.72 M/uL (4.70-6.10) 07/11/24 WBC 10.99 K/ul (4.8-10.8) H 07/11/24 Hgb 14.5 g/dl (14.0-18.0) 07/11/24 Hct 44.5 % (42.0-52.0) 07/11/24 MCV 94.3 fL (80.0-100.0) 07/11/24 MCH 30.7 pg (25.0-34.0) 07/11/24 MCHC 32.6 g/dL (32.0-36.0) 07/11/24 RDW Standard Deviation 43.7 fL (36.4-46.3) 07/11/24 RDW Coefficient of Variation 12.7 % (11.5-14.5) 07/11/24 Plt Count 273 K/uL (130-400) 07/11/24 MPV 10.0 fL (9.4-12.4) 07/11/24 Neutrophils (%) (Auto) 75.3 % 07/11/24 Lymphocytes (%) (Auto) 16.7 % 07/11/24 Monocytes # (Auto) 0.64 K/uL (0.11-0.59) H 07/11/24 Eosinophils # (Auto) 0.12 K/uL (0.00-0.50) 07/11/24 Immature Granulocyte % (Auto) 0.4 % 07/11/24 Neutrophils # (Auto) 8.28 K/uL (1.40-6.50) H 07/11/24 Lymphocytes # (Auto) 1.83 K/uL (1.20-3.40) 07/11/24 Monocytes # (Auto) 0.64 K/uL (0.11-0.59) H 07/11/24 Eosinophils # (Auto) 0.12 K/uL (0.00-0.50) 07/11/24 Basophils # (Auto) 0.08 K/uL (0.00-0.20) 07/11/24 Immature Granulocyte # (Auto) 0.04 K/uL (0.01-0.20) 5 Na 140 mmol/L (136-145) 07/11/24 K 3.9 mmol/L (3.5-5.1) 07/11/24 Cl 103 mmol/L (98-107) 07/11/24 CO2 31 mmol/L (21-32) 07/11/24 Anion Gap 6 (3-11) 07/11/24 BUN 11 mg/dl (6-23) 07/11/24 Creatinine 1.01 mg/dl (0.6-1.4) 07/11/24 BUN/Creatinine Ratio 10.9 (10-20) 07/11/24 Glu 125 mg/dl (70-99(Fasting)) H 07/11/24 Ca 9.6 mg/dl (8.6-10.3) 07/11/24 Total Bilirubin 0.3 mg/dl (0.2-1.0) 07/11/24 AST 12 U/L (13-39) L 07/11/24 ALT 14 U/L (7-52) 07/11/24 Alkaline Phosphatase 77 U/L (34-104) 07/11/24 TP 8.0 gm/dl (6.0-8.3) 07/11/24 Albumin 5.0 gm/dl (3.4-5.0) 07/11/24 Globulin 3.0 gm/dl (2.5-4.0) 07/11/24 Albumin/Globulin Ratio 1.7 (0.9-2) 07/11/24 Mg 2.3 mg/dl (1.7-2.4) 07/11/24 13:35 Calcium Level 9.6 mg/dl (8.6-10.3) 07/11/24 13:35 Prothromb Time International Ratio 0.9 (0.9-1.1) 07/11/24 13:3 5 Venous Blood pH 7.29 (7.36-7.41) L 07/11/24 13:35 Venous Blood Partial Pressure CO2 64 mmHg (38-50) H 07/11/24 13 :35 Venous Blood Partial Pressure O2 35 mmHg 07/11/24 13:35 Venous Blood HCO3 31 mmol/L 07/11/24 13:35 Venous Blood Base Excess 2.3 mEq/L 07/11/24 13:35 Venous Blood Oxygen Saturation 62.3 % 07/11/24 13:35 Diagnostic Findings (Past 24 Hours) Chest X-Ray 07/11/24 13:13 XR chest 1V portable CLINICAL HISTORY: Dyspnea COMPARISON STUDY: 05/13/2023 FINDINGS: There is an interval small to moderate left pneumothorax with 2 cm pleural separation laterally and at the left apex. There is no consolidation or pleural effusion. IMPRESSION: Small to moderate left pneumothorax. ACT 112: Negative or not required by law. Electronically signed by: Liang Mcgarry M.D. 07/11/2024 1:31 PM RT Ventilator Mngmt (Last Documented) Ventilator Ordered Settings Respiratory Rate 22 07/11/24 14:07 Ventilator - PT Measurements Respiratory Rate 22 PG Care Time/CCT Total # of Minutes Spent Total Time Spent with Patient: Total time spent is greater than 50% in coordination of care (as documented) at patient's floor/unit and/or counseling patient: Coding Level of Care Code 63364 INT INP/OBS CARE 375MIN Diagnoses Pneumothorax J93.9 Acute on chronic hypoxic respiratory failure J96.21 COPD (chronic obstructive pulmonary disease) J44.9
--- NOTE | 2024-07-11 15:07 | Procedure Note ---
Procedure Note Date of Service July 11, 2024 Procedure: Placement of 14 English pigtail catheter on the left Indication: Secondary pneumothorax Rrts Dr. Jeovany Barnes Pick Up Driver ИРИНА Elias Anesthesia: 10 mL 1% lidocaine locally Consent: Risks and benefits discussed with the patient. He agreed to proceed. Procedure: This 64-year-old male with advanced COPD and chronic hypoxemic respiratory failure presented with chest pain and was found to have a small to moderate-sized pneumothorax. He was increasingly symptomatic which prompted smallbore tube placement. The patient was placed in the left side up decubitus position. Limited thoracic ultrasound was performed. The diaphragm was identified. An appropriate site for a 14 English pigtail catheter placement in the posterior axillary line just below the level of the nipple was identified and marked. Skin was cleaned and draped in normal sterile fashion. A sterile field was established. The skin and subcutaneous tissues were anesthetized using lidocaine without difficulty. Using an 18-gauge finder needle, I was able to enter the pleural space with aspiration of air. The syringe was detached leaving the needle in place and a wire passed through the needle into the pleural space. The needle was withdrawn leaving the wire in place. A small skin cipriano was made with a scalpel over the wire. A 14 English dilator was then passed over the wire through the subcutaneous tissues with ease. The dilator was removed leaving the wire in place. A 14 English pigtail catheter with a stopcock had been loaded with a straightening catheter. This was passed over the wire and into the pleural space. The wire was removed and then the straightening catheter removed. The tube was attached to suction with a brisk air leak which lasted for about 15 to 20 seconds then resolved. The catheter was maintained on suction at 10 cm of water. It was fixed to the chest wall using a skater catheter fixation system as well as 2 Tegaderms. Patient tolerated the procedure well. Follow-up chest x-ray pending. Patient reported improvement in his shortness of breath and chest discomfort post tube placement Continue chest tube to suction for now and follow for airleak and radiographic appearance [facility] Procedure Codes (Charges) Pulmonary/Thoracic Procedure 1: Pulmonary and Thoracic: 19140 Pleural drainage w/imaging Procedure 2: Pulmonary and Thoracic: 41222 US, Chest, real time with imaging documentation Coding CPT Codes Pulmonary/Thoracic - Pulmonary and Thoracic: 44342 Pleural drainage w/imaging ([id number]) Pulmonary/Thoracic - Pulmonary and Thoracic: 99383 US, Chest, real time with imaging documentation ([id number]) Additional Codes Date of Service ([email or web address])
--- NOTE | 2024-07-11 15:18 | XRay Report ---
XR chest 1V portable CLINICAL HISTORY: post L CT placement COMPARISON STUDY: 07/11/2024 FINDINGS: Heart size and pulmonary vasculature are normal. Likely findings of emphysema again seen. T here is an interval left chest tube with the distal tip lateral left mid pleural space. There is a tr corwin residual left pneumothorax, significantly improved. No consolidation or pleural effusion. IMPRESSION: Trace left pneumothorax, significantly improved. ACT 112: Negative or not required by law. Electronically signed by: Liang Mcgarry M.D. 07/11/2024 3:17 PM
[2024-07-11] MEDS: oxyCODONE HCL IR 5 MG TAB (IMMEDIATE RELEASE) PO PRN (16:43)
[2024-07-11] MEDS: ACETAMINOPHEN 500 MG TAB PO PRN (17:48)
--- OUTSIDE RECORDS SUMMARY | 2024-07-11 21:32 | External Medical Summary | Summary of Care ---
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 100 Tab 3 09/07/19 15 Active Multiple Vitamin (ONE-A-DAY MENS) Tablet Take 1 Tablet by mouth in the morning. 08/19/19 19 Active Acetaminophen 500 MG Oral Tablet (Tylenol) Take 1-2 Tablets by mouth every 8 hours as needed for Fever >38C(100.5F), Pain, Mild or Pain, Moderate. Active oxygen IN GAS 2 LPM via NC continuously 1 Each 04/14/19 23 Active guaiFENesin ER 600 MG Oral Tablet Extended Release 12 Hour Take 1 Tablet by mouth as needed. 06/12/19 23 Active Terbinafine HCl 1 % External [...] nails 8 mL 5 12/03/19 23 Active Levalbuterol HCl 1.25 MG/3ML Inhalation Nebulization SolutionIndication s:COPD, group D, by GOLD 2017 classification (HCC),COPD exacerbation (HCC) Inhale 3 mL via nebulizer every 8 hours as needed for Wheezing. 120 mL 5 01/09/20 23 Active Rosuvastatin Calcium 20 MG Oral Tablet (Crestor)Indicatio ns:Dyslipidemia, goal LDL below 100 TAKE 1 TABLET BY MOUTH IN THE MORNING 90 Tablet 3 06/22/19 24 Active Cyclobenzaprine HCl 10 MG Oral Tablet (Flexeril)Indicati ons:RLS (restless legs syndrome) Take 1 Tablet by mouth every 6 hours as needed for Muscle spasms. 30 Tablet 3 06/22/19 24 Active Probiotic Blend Oral Capsule Take 1 Tablet by mouth in the morning and 1 Tablet at noon and 1 Tablet in the evening. Take before meals. Take while using antibiotics and for 1 week after stopping antibiotics, then stop.. 90 Capsule 08/10/19 24 Active Additional Information Patient not taking.Reported on 06/28/2024 predniSONE 20 MG Oral Tablet (Deltasone)Indicat ions:COPD exacerbation (HCC) NEEDED RESCUE KIT. Take 2 tabs by mouth for 5 days 10 Tablet 1 11/26/19 24 Active predniSONE 10 MG Oral Tablet (Deltasone)Indicat ions:COPD exacerbation (HCC) Take 5 tabs for 2 days, 4 tabs for 2 days, 3 tabs for 2 days, 2 tabs for 2 days 1 tab for 2 days 30 Tablet 01/28/20 24 Active Azithromycin 250 MG Oral Tablet (Zithromax Z-Jason)Indications: COPD exacerbation (HCC) Take two tablets by mouth on first day, then 1 tablet daily until gone 6 Tablet 01/28/20 24 Active Benzonatate 100 MG Oral Capsule (Tessalon Perles)Indications :COPD exacerbation (HCC) Take 1 Capsule by mouth 3 times a day as needed for Cough. Do not cut, crush, or chew. 50 Capsule 1 01/28/20 24 Active Additional Information Patient not taking.Reported on 06/28/2024 Metoprolol Succinate ER 25 MG Oral Tablet Extended Release 24 Hour (toPROL XL)Indications:HTN , goal below 140/90 TAKE 1/2 (ONE-HALF) TABLET BY MOUTH AT BEDTIME 45 Tablet 1 02/29/20 24 Active Montelukast Sodium 10 MG Oral Tablet (Singulair) TAKE 1 TABLET BY MOUTH AT BEDTIME 90 Tablet 3 03/10/20 24 Active Albuterol Sulfate HFA 108 (90 Base) MCG/ACT Inhalation Aerosol SolutionIndication s:COPD, group D, by GOLD 2017 classification ([facility]),COPD exacerbation ([facility]),Need for case management follow-up Inhale 2 Puffs by mouth every 4 hours as needed for Cough, Shortness of Breath or Wheezing. 54 g 3 04/29/19 25 Active Fluticasone-Umecli din-Vilant 100-62.5-25 MCG/ACT Aerosol Powder Breath Activated (Trelegy Ellipta)Indication s:COPD, group D, by GOLD 2017 classification ([facility]),COPD exacerbation ([facility]),Need for case management follow-up Inhale 1 Puff by mouth in the morning. Please rinse mouth and gargle with water after use.. 180 Blister Dosing Unit 3 04/29/19 25 Active Levalbuterol Tartrate 45 MCG/ACT Inhalation Aerosol (Xopenex HFA)Indications:CO PD, group D, by GOLD 2017 classification ([facility]),COPD exacerbation ([facility]),Need for case management follow-up Inhale 1 Puff by mouth every 4 hours as needed for Wheezing. 15 g 12 04/29/19 25 Active Nebulizer/Tubing/M outhpiece KitIndications:Ana Laura nieto for case management follow-up,COPD, group D, by GOLD 2017 classification ([facility]) Replace tubing and mouthpiece regularly 3 Kit 3 05/05/19 25 Active amLODIPine Besylate 2.5 MG Oral Tablet (Norvasc)Indicatio ns:HTN, goal below 140/90 TAKE 1 TABLET BY MOUTH IN THE MORNING 90 Tablet 3 06/07/19 25 Active Hospital, Clinic, or Other Facility Administered Medication Ordered Dose Route Frequency Start Date End Date Status Albuterol Sulfate (Proventil) (2.5 MG/3ML) 0.083% inhalation solution 2.5 mgIndications:COPD, group D, by GOLD 2017 classification ([facility]) 2.5 mg NEBULIZER PRN 01/15/2024 01/14/2025 Acti ve albuterol (VENTOLIN HFA/PROVENTIL HFA) inhalerIndications:COPD , group D, by GOLD 2017 classification (HCC) 3 Puff IN PRN 01/15/2024 01/14/2025 Acti ve documented as of this encounter (statuses as of 07/04/2024) Active Problems Problem Noted Date Diagnosed Date Acute and chronic respiratory failure with hypox ia 06/22/2023 HTN, goal below 140/90 06/22/2023 RLS (restless legs syndrome) 06/22/2023 Prediabetes 03/16/2023 Overview: Per Prediabetes protocol Dependence on continuous supplemental oxygen Nocturnal hypoxemia 10/18/2021 Overview (10/18/2021): Wearing 2 LPM via NC overnight Multiple [...] as of this encounter (statuses as of 07/04/2024) Resolved Problems Problem Noted Date Diagnosed Date Resolved Date Chronic hypoxemic respiratory failure 08/01/2016 08/18/2018 COPD, severe 07/08/2013 02/10/2018 documented as of this encounter (statuses as of 07/04/2024) Immunizations Name Administration Dates Next Due COVID-19 mRNA, LNP-s, No Pre serve, 2-Dose Series ([employer]) 04/23/2021,08/25/2020,08/04/2020 COVID-19, LNP-s, No Preserve , Eddy-sucrose, Ages 12+ ([employer]) 11/04/2021 COVID-19, MRNA-LNP, 24-25, P R, 30MCG/0.3ML, IM, 12YRS AND ABOVE (MOBITRACComirnaty) 01/14/2024 COVID-19, MRNA-LNP, PF, 30 M CG/0.3 mL, 12 YRS AND ABOVE, IM (PFIZER-Comirnaty) 02/23/2023 Pneumococcal Conjugate Vacci ne, 20-valent ([id number]) 12/12/2021 Pneumococcal Polysaccharide PPV23 (Pneumovax) 08/10/2013,03/21/2011(Deferred: Patient Refused) RSV Vac., Recomb, Adjuvant, PF,0.5 Ml (Arexvy) 02/10/2023 Season Influenza, Quad, PF, Adjuvanted, 65+ Yrs, IM (FLUAD) 03/06/2020 Seasonal Influenza Vac., MDV , IM, 0.5 mL (Fluzone) 01/14/2024,12/20/2014,12/14/2013,03/21(Deferred: Patient Refused) Seasonal Influenza, PF, 6 M & above, IM , (FluLaval or Fluzone) 12/12/2021,02/18/2019,03/10/2018,01/22 Seasonal Influenza, QUAD, wi th Preserv, 6 mons & Above, 0.5 mL, IM 01/04/2023 Seasonal Influenza, Quadriva lent Hd, 65+ Yrs 02/08/2021 Seasonal Influenza, Quadriva lent, No Preserve, IM 02/01/2016 Seasonal Influenza, Trivalen t, (IIV3), PF, (Fluzone) 01/14/2024 TDAP (age 10 and older)(Boostrix) 07/08/2013 Zoster Vaccine Recombinant (Shingrix) 12/02/2022 ,11/10/2019 documented as of this encounter Social History Tobacco Use Types Packs/Day Years Used Date Smoking Tobacco: Former Cigarettes 1 44 0 06/28/1977 - 06/28/2021 Smokeless Tobacco: Never Alcohol Use Standard Drinks/Week Comments No 0 (1 standard drink = 0.6 oz pur e alcohol) PHQ-2 Answer Date Recorded PHQ Adult Total Score 0 06/28/2024 Hunger Vital Sign Answer Date Recorded Within the past 12 months, y ou worried that your food would run out before you got the money to buy more. Never true 06/29/19 25 Within the past 12 months, t he food you bought just didn't last and you didn't have money to get more. Never true 06/28/2024 Childcare Answer Date Recorded Do you feel overwhelmed with taking care of a child, family member or friend? No 06/28/2024 Does your family need help f inding childcare? (Household - for ages 0-17 years) Not on file 06/28/2024 Clothing Answer Date Recorded Have you been unable to get clothing when it was really needed? No 06/28/2024 Is your family able to get c lothes or diapers when needed? (Household - for ages 0-17 years) Not on file 06/28/2024 Personal Safety Answer Date Recorded Do you feel unsafe or have concerns for your saf ety? No 06/28/2024 Do you have concerns for you r family's safety? (Household - for ages 0-17 years) Not on file 06/28/2024 Utilities Answer Date Recorded Do you have trouble paying y our heating, water, or electric bill? No 06/28/2024 Is your family able to pay t he heat, water, or electric bill? (Household - for ages 0-17 years) Not on file 06/28/2024 Does your family have access to good internet? (Household - for ages 0-17 years) Not on file 06/28/2024 Employment Status Answer Date Recorded Are you unemployed or without regular income? No 06/28/2024 Does the household have a re gular source of income? (Household - for ages 0-17 years) Not on file 06/28/2024 Social Connections Answer Date Recorded How often do you feel lonely or isolated from th ose around you? Never 06/28/2024 Financial Resource Strain Answer Date R ecorded Do you have any trouble payi ng for your medications, or do you think you might in the future? No 06/28/2024 Does your family have troubl e paying for medicine? (Household - for ages 0-17 years) Not on file 06/28/2024 Transportation Needs Answer Date Record ed READ ONLY Do you have troubl e getting a ride to medical visits or work? Never True 06/28/2024 Does your family have a hard time getting a ride to doctors visits? (Household - for ages 0-17 years) Not on file 06/28/2024 Has lack of transportation k ept you from medical appointments, meetings, work, or from getting things needed for daily living? Check all that apply. No 06/28/2024 Do you (or your family) have trouble finding or paying for a ride (transportation)? (Household - for ages 0-17 years) Not on file 06/28/2024 Housing Stability Answer Date Recorded Do you currently live in a s helter or have no steady place to sleep at night? No 06/28/2024 READ ONLY Do you think you a re at risk of becoming homeless? No 06/28/2024 Does your family worry about paying for your home or becoming homeless? (Household - for ages 0-17 years) Not on file 0 06/28/2024 Are you homeless or worried that you might be in the future? No 06/28/2024 Are you (or your family) johnny eless or worried that you might be in the future? (Household - for ages 0-17 years) Not on file Food Insecurity Answer Date Recorded Do you need food for this week? No 07/24/2023 Are you able to get enough f ood for your family? (Household - for ages 0-17 years) Not on file 07/24/2023 Does your family need food t his week? (Household - for ages 0-17 years) Not on file 07/24/2023 Do you always have enough fo od for your family? (Household - for ages 0-17 years) Not on file 07/24/2023 Food Insecurity Answer Date Recorded Within the past 12 months, y ou worried that your food would run out before you got the money to buy more. Never true 06/29/19 Within the past 12 months, t he food you bought just didn't last and you didn't have money to get more. Never true 06/28/2024 Do you need food for this week? No 06/28/2024 Sex and Gender Information Value Date Recorded Sex Assigned at Male 07/26/2018 11:36 AM EDT Legal Sex Male 6:43 AM EST Gender Identity Male 07/26/2018 11:36 AM EDT Sexual Orientation Straight 07/26/2018 11 :36 AM EDT documented as of this encounter Plan of Treatment Upcoming Encounters Date Type Department Care Team (Late st Contact Info) Description 07/14/2024 1:00 PM EDT [facility] [address] [facility] [place] [address] Edelmira Cavanaugh MD [address] [place] [address] 12/13/2024 12:00 PM EDT Office Visit Pulmonary Medicine, [facility] [address] [place] [phone] Nima Carlin MD [address] [facility] [place] [address] Scheduled Orders Name Type Priority Associated Diagnoses Orde r Schedule MYCODE SUBSEQUENT ADULT Lab Routine MyCode Research Other*[id number] Every 6 Months for 2 Occurrences starting 07/04/2024 until 07/24/2025 Scheduled Procedures Name Priority Associated Diagnoses Date/Ti me COLONOSCOPY FLEXIBLE PROXIMAL DIAGNOSTIC Recall History of colon polyps Health Maintenance Due Date Last Done Comments Albumin/Creatinine Ratio 1978 Cologuard 2005 Fecal Occult Blood Test 2005 Sigmoidoscopy 2005 *ADVANCE DIRECTIVE NOT ON FILE 09/18/2018 DTap/Tdap Vaccines (2 - Td or Tdap) 07/09/2023 07/08/2013 COVID-19 Vaccine ( season) 2024 01/14/2024, 02/23/2023, 11/04/2021, Additional history exists Colonoscopy 01/03/2025 01/04/2020, 08/05, 09/01/2013 Colorectal Cancer Screening 01/03/2025 GFR 01/14/2025 01/15/2024, 04/2023, 01/08/2023, Additional history exists HbA1c 01/14/2025 01/15/2024, 1209/2022, 01/08/2023 O2 ASSESSMENT COMPLETED IN PAST YEAR FOR COPD 01/14/2025 01/15/2024 Depression Screening 06/28/2025 06/28/2024 Lipid Panel 01/14/2029 01/15/2024, 03/0 04/2023, 01/08/2023, Additional history exists RETIRED - COLONOSCOPY-EVERY 5 YRS AGES 18-100 Discontinued 01/04/2020, 09/01/2013, 09/01/2013 Pneumococcal Vaccine: 50+ Years Completed 12/12/2021, 08/10/2013 Zoster Vaccines Completed 12/02/2022, 11/10/2019 Alpha-1 Antitrypsin Completed 06/05/2023, Lung Cancer Screening Completed 07/06/2023 , 02/25/2021, 02/23/2020, Additional history exists Influenza Vaccine (FLU shot) Completed 01/14/2024, 01/14/2024, 01/04/2023, Additional history exists HPV (Gardasil) Vaccine Aged Out No lo nger eligible based on patient's age to complete this topic Hepatitis B Vaccine Aged Out No longe r eligible based on patient's age to complete this topic MENINGOCOCCAL (MENACTRA/MENVEO) Aged Out No longer eligible based on patient's age to complete this topic Meningitis B Vaccine (Bexsero/Trumemba) Aged Out No longer eligible based on patient's age to complete this topic documented as of this encounter Medical Devices Not on filedocumented as of this encounter Visit Diagnoses Diagnosis MyCode Research Other*[id number] documented in this encounter Advance Directives Healthcare Agents on File Name Relationship Healthcare Agent Relationship Communication Jeannie Mishra Other - (no specific identity) Health Care Occupational Ther (appointed verbally by patient or by statute hierarchy) Care Teams Paper Cap Machine Operator Relationship Specialty Start Date End Date Edelmira Cavanaugh MD [address] [place] [address] PCP - General Internal Medicine 05/09/21 documented as of this encounter
--- OUTSIDE RECORDS SUMMARY | 2024-07-11 21:33 | External Medical Summary | Summary of Care ---
Author Name Unknown Organization [facility] Address [address] [place] [address] Phone [phone] Care Team Providers Care Throw Out Clerk Name Role Phone Edelmira Cavanaugh MD Primary Care Provider [phone] Reason for Visit * Reason Comments eRx-Medication Refill Encounter Details Date Type Department Care Team (Late st Contact Info) Description 03/10/2024 Refill General Internal Medicine [facility] [address] [place] [address] Edelmira Cavanaugh MD [address] [place] [address] Allergies Active Allergy Reactions Criticality Noted Date Comments Levofloxacin Other (Please comment) Low 10/18/2021 Rash documented as of this encounter (statuses as of 03/10/2024) Medications aspirin enteric coated 81 MG TBEC Take 1 Tab by mouth daily. 100 Tab 3 015 Active Multiple Vitamin (ONE-A-DAY MENS) Tablet Take 1 Tablet by mouth in the morning. 019 Active Acetaminophen 500 MG Oral Tablet (Tylenol) Take 1-2 Tablets by mouth every 8 hours as needed for Fever >38C(100.5F), Pain, Mild or Pain, Moderate. Active oxygen IN GAS 2 LPM via NC continuously 1 Each 023 Active guaiFENesin ER 600 MG Oral Tablet Extended Release 12 Hour Take 1 Tablet by mouth as needed. 023 Active Terbinafine HCl 1 % External Cream (LamISIL AT ATHLETE'S FOOT)Indications: Tinea pedis of both feet Apply topically to affected area 2 times a day. Apply to both feet 42 g 3 023 Active Jublia 10 % External Solution (Efinaconazole)In dications:Dermato phytosis of nail Apply topically to affected area 2 times a day. Apply to toe nails 8 mL 5 023 Active Albuterol Sulfate HFA 108 (90 Base) MCG/ACT Inhalation Aerosol SolutionIndicatio ns:COPD, group D, by GOLD 2017 classification ([facility]) Inhale 2 Puffs by mouth every 4 hours as needed for Cough, Shortness of Breath or Wheezing. 54 g 3 023 Active Levalbuterol Tartrate 45 MCG/ACT Inhalation Aerosol (Xopenex HFA)Indications:C OPD, group D, by GOLD 2017 classification ([facility]),COPD exacerbation ([facility]) Inhale 1 Puff by mouth every 4 hours as needed for Wheezing. 15 g 12 023 Active Levalbuterol HCl 1.25 MG/3ML Inhalation Nebulization SolutionIndicatio ns:COPD, group D, by GOLD 2017 classification ([facility]),COPD exacerbation ([facility]) Inhale 3 mL via nebulizer every 8 hours as needed for Wheezing. 120 mL 5 023 Active Fluticasone-Umecl idin-Vilant 100-62.5-25 MCG/ACT Aerosol Powder Breath Activated (Trelegy Ellipta) Inhale 1 Puff by mouth in the morning. Please rinse mouth and gargle with water after use.. 180 Blister Dosing Unit 3 023 Active Rosuvastatin Calcium 20 MG Oral Tablet (Crestor)Indicati ons:Dyslipidemia, goal LDL below 100 TAKE 1 TABLET BY MOUTH IN THE MORNING 90 Tablet 3 024 Active Cyclobenzaprine HCl 10 MG Oral Tablet (Flexeril)Indicat ions:RLS (restless legs syndrome) Take 1 Tablet by mouth every 6 hours as needed for Muscle spasms. 30 Tablet 3 024 Active amLODIPine Besylate 2.5 MG Oral Tablet (Norvasc)Indicati ons:HTN, goal below 140/90 Take 1 Tablet by mouth in the morning. 90 Tablet 3 024 Active Probiotic Blend Oral Capsule Take 1 Tablet by mouth in the morning and 1 Tablet at noon and 1 Tablet in the evening. Take before meals. Take while using antibiotics and for 1 week after stopping antibiotics, then stop.. 90 Capsule 024 Active predniSONE 20 MG Oral Tablet (Deltasone)Indica tions:COPD exacerbation (HCC) NEEDED RESCUE KIT. Take 2 tabs by mouth for 5 days 10 Tablet 1 024 Active predniSONE 10 MG Oral Tablet (Deltasone)Indica tions:COPD exacerbation (HCC) Take 5 tabs for 2 days, 4 tabs for 2 days, 3 tabs for 2 days, 2 tabs for 2 days 1 tab for 2 days 30 Tablet 024 Active Azithromycin 250 MG Oral Tablet (Zithromax Z-Jason)Indications :COPD exacerbation (HCC) Take two tablets by mouth on first day, then 1 tablet daily until gone 6 Tablet 024 Active Benzonatate 100 MG Oral Capsule (Tessalon Perles)Indication s:COPD exacerbation (HCC) Take 1 Capsule by mouth 3 times a day as needed for Cough. Do not cut, crush, or chew. 50 Capsule 1 024 Active Metoprolol Succinate ER 25 MG Oral Tablet Extended Release 24 Hour (toPROL XL)Indications:HT N, goal below 140/90 TAKE 1/2 (ONE-HALF) TABLET BY MOUTH AT BEDTIME 45 Tablet 1 024 Active Montelukast Sodium 10 MG Oral Tablet (Singulair) TAKE 1 TABLET BY MOUTH AT BEDTIME 90 Tablet 3 024 Active Montelukast Sodium 10 MG Oral Tablet (Singulair) Take 1 Tablet by mouth at bedtime. 90 Tablet 3 023 2023 Discontinued Hospital, Clinic, or Other Facility Administered Medication Ordered Dose Route Frequency Start Date End Date Status Albuterol Sulfate (Proventil) (2.5 MG/3ML) 0.083% inhalation solution 2.5 mgIndications:COPD, group D, by GOLD 2017 classification ([facility]) 2.5 mg NEBULIZER PRN 01/15/2024 01/14/2025 Acti ve albuterol (VENTOLIN HFA/PROVENTIL HFA) inhalerIndications:COPD , group D, by GOLD 2017 classification ([facility]) 3 Puff IN PRN 01/15/2024 01/14/2025 Acti ve documented as of this encounter (statuses as of 03/10/2024) Active Problems Problem Noted Date Diagnosed Date [...] as of this encounter (statuses as of 03/10/2024) Resolved Problems Problem Noted Date Diagnosed Date Resolved Date Chronic hypoxemic respiratory failure 08/01/2016 08/18/2018 COPD, severe 07/08/2013 02/10/2018 documented as of this encounter (statuses as of 03/10/2024) Immunizations Name Administration Dates Next Due COVID-19 mRNA, LNP-s, No Pre serve, 2-Dose Series ([employer]) 04/23/2021,08/25/2020,08/04/2020 COVID-19, LNP-s, No Preserve , Eddy-sucrose, Ages 12+ ([employer]) 11/04/2021 COVID-19, MRNA-LNP, 24-25, P R, 30MCG/0.3ML, IM, 12YRS AND ABOVE ([employer]-Comirnaty) 01/14/2024 COVID-19, MRNA-LNP, PF, 30 M CG/0.3 mL, 12 YRS AND ABOVE, IM (T3MediaComirnaty) 02/23/2023 Pneumococcal Conjugate Vacci ne, 20-valent ([id number]) 12/12/2021 Pneumococcal Polysaccharide PPV23 (Pneumovax) 08/10/2013,03/21/2011(Deferred: Patient Refused) RSV Vac., Recomb, Adjuvant, PF,0.5 Ml (Arexvy) 02/10/2023 Season Influenza, Quad, PF, Adjuvanted, 65+ Yrs, IM (FLUAD) 03/06/2020 Seasonal Influenza Vac., MDV , IM, 0.5 mL (Fluzone) 12/20/2014,12/14/2013,03/21/2011(Defer red: Patient Refused) Seasonal Influenza, PF, 6 M [...] the money to buy more. Never true 07/24/19 24 Within the past 12 months, t he food you bought just didn't last and you didn't have money to get more. Never true 07/24/2023 Childcare Answer Date Recorded Do you feel overwhelmed with taking care of a child, family member or friend? No 07/24/2023 Does your family need help f inding childcare? (Household - for ages 0-17 years) Not on file 07/24/2023 Clothing Answer Date Recorded Have you been unable to get clothing when it was really needed? No 07/24/2023 Is your family able to get c lothes or diapers when needed? (Household - for ages 0-17 years) Not on file 07/24/2023 Personal Safety Answer Date Recorded Do you feel unsafe or have concerns for your saf ety? No 07/24/2023 Do you have concerns for you r family's safety? (Household - for ages 0-17 years) Not on file 07/24/2023 Utilities Answer Date Recorded Do you have trouble paying y our heating, water, or electric bill? No 07/24/2023 Is your family able to pay t he heat, water, or electric bill? (Household - for ages 0-17 years) Not on file 07/24/2023 Does your family have access to good internet? (Household - for ages 0-17 years) Not on file 07/24/2023 Employment Status Answer Date Recorded Are you unemployed or without regular income? No 07/24/2023 Does the household have a re lar source of income? (Household - for ages 0-17 years) Not on file 07/24/2023 Social Connections Answer Date Recorded How often do you feel lonely or isolated from th ose around you? Never 07/24/2023 Financial Resource Strain Answer Date R ecorded Do you have any trouble payi ng for your medications, or do you think you might in the future? No 07/24/2023 Does your family have troubl e paying for medicine? (Household - for ages 0-17 years) Not on file 07/24/2023 Transportation Needs Answer Date Record ed READ ONLY Do you have troubl e getting a ride to medical visits or work? Never True 07/24/2023 Does your family have a hard time getting a ride to doctors visits? (Household - for ages 0-17 years) Not on file 07/24/2023 Has lack of transportation k ept you from medical appointments, meetings, work, or from getting things needed for daily living? Check all that apply. (Adult - for ages 18 years and over) Not on file 07/24/2023 Do you (or your family) have trouble finding or paying for a ride (transportation)? (Household - for ages 0-17 years) Not on file 07/24/2023 Housing Stability Answer Date Recorded Do you currently live in a s helter or have no steady place to sleep at night? No 07/24/2023 READ ONLY Do you think you a re at risk of becoming homeless? No 07/24/2023 Does your family worry about paying for your home or becoming homeless? (Household - for ages 0-17 years) Not on file 0 07/24/2023 Are you homeless or worried that you might be in the future? (Adult - for ages 18 years and over) Not on file Are you (or your family) johnny eless [...] ages 0-17 years) Not on file 07/24/2023 Sex and Gender Information Value Date Recorded Sex Assigned at Male 07/26/2018 11:36 AM EDT Legal Sex Male 6:43 AM EST Gender Identity Male 07/26/2018 11:36 AM EDT Sexual Orientation Straight 07/26/2018 11 :36 AM EDT documented as of this encounter Miscellaneous Notes * Telephone Encounter - Nathanael Villatoro [facility] - 03/10/2024 8:29 PM EST Signed Prescriptions: Disp Refills Montelukast Sodium 10 MG Oral Tablet (Sing*90 Tab*3 Sig: TAKE 1 TABLET BY MOUTH AT BEDTIMEAuthorizing Provider: Steve CAVANAUGH User: NATHANAEL VILLATORO- documented in this encounter Plan of Treatment Upcoming Encounters Date Type Department Care Team (Late st Contact Info) Description 04/08/2024 11:15 AM EST Imaging Radiology [address] [facility] [place] [address] 07/14/2024 1:00 PM EDT Office Visit General Internal Medicine [facility] [address] [place] [address] Edelmira Cavanaugh MD [address] [facility] [place] [address] Scheduled Procedures Name Priority Associated Diagnoses Date/Ti me COLONOSCOPY FLEXIBLE PROXIMAL DIAGNOSTIC Recall History of colon polyps Health Maintenance Due Date Last Done Comments Albumin/Creatinine Ratio 1978 Cologuard 2005 Fecal Occult Blood Test 2005 Sigmoidoscopy 2005 *ADVANCE DIRECTIVE NOT ON FILE 09/18/2018 DTap/Tdap Vaccines (2 - Td or Tdap) 07/09/2023 07/08/2013 COVID-19 Vaccine ( season) 2024 01/14/2024, 02/23/2023, 11/04/2021, Additional history exists Depression Screening 05/01/2024 05/01/2023 Colonoscopy 01/03/2025 01/04/2020, 08/05, 09/01/2013 Colorectal Cancer Screening 01/03/2025 GFR 01/14/2025 01/15/2024, 0 04/2023, 01/08/2023, Additional history exists HbA1c 01/14/2025 01/15/2024, 1209/2022, 01/08/2023 O2 ASSESSMENT COMPLETED IN PAST YEAR FOR COPD 01/14/2025 01/15/2024 Lipid Panel 01/14/2029 01/15/2024, 030 04/2023, 01/08/2023, Additional history exists RETIRED - COLONOSCOPY-EVERY 5 YRS AGES 18-100 Discontinued 01/04/2020, 09/01/2013, 09/01/2013 Pneumococcal Vaccine: Pediatrics (0 to 5 Years) [...] Other - (no specific identity) Health Care Supervisor Cell Maintenance (appointed verbally by patient or by statute hierarchy) Care Teams Throw Out Clerk Relationship Specialty Start Date End Date Edelmira Cavanaugh MD [address] [facility] [place] [address] PCP - General Internal Medicine 05/09/21 documented as of this encounter
--- OUTSIDE RECORDS SUMMARY | 2024-07-11 21:33 | External Medical Summary | Summary of Care ---
Author Name Unknown Organization [facility] Address [address] [place] [address] Phone [phone] Care Team Providers Care Marketing Professional Name Role Phone Edelmira Cavanaugh MD Primary Care Provider [phone] Reason for Visit * Reason Onset Date Comments Medical Equipment 05/05/2024 Encounter Details Date Type Department Care Team (Late st Contact Info) Description 05/05/2024 Telephone General Internal Medicine [facility] [address] [place] [address] Edelmira Cavanaugh MD [address] [place] [address] Medical Equipment Allergies Active Allergy Reactions Criticality Noted Date Comments Levofloxacin Other (Please comment) Low 10/18/2021 Rash documented as of this encounter (statuses as of 05/06/2024) Medications aspirin enteric coated 81 MG TBEC [...] s:COPD, group D, by GOLD 2017 classification ([facility]),COPD exacerbation (HCC) Inhale 3 mL via nebulizer [...] as needed for Muscle spasms. 30 Tablet 06/22/19 24 Active amLODIPine Besylate 2.5 MG Oral Tablet (Norvasc)Indicatio ns:HTN, goal below 140/90 Take 1 Tablet by mouth in the morning. 90 Tablet 3 06/22/19 24 Active Probiotic Blend Oral Capsule Take 1 Tablet by mouth in the morning and 1 Tablet at noon and 1 Tablet in the evening. Take before meals. Take while using antibiotics and for 1 week after stopping antibiotics, then stop.. 90 Capsule 08/10/19 24 Active predniSONE 20 MG Oral Tablet (Deltasone)Indicat ions:COPD [...] chew. 50 Capsule 1 01/28/20 24 Active Metoprolol Succinate ER 25 MG Oral [...] s:COPD, group D, by GOLD 2017 classification ([facility]),COPD exacerbation ([facility]),Need for case management follow-up Inhale 2 Puffs by mouth every 4 hours as needed for Cough, Shortness of Breath or Wheezing. 54 g 3 04/29/19 25 Active Fluticasone-Umecli din-Vilant 100-62.5-25 MCG/ACT Aerosol Powder Breath Activated (Trelegy Ellipta)Indication s:COPD, group D, by GOLD 2017 classification ([facility]),COPD exacerbation ([facility]),Need for case management follow-up Inhale 1 Puff by mouth in the morning. Please rinse mouth and gargle with water after use.. 180 Blister Dosing Unit 04/29/19 25 Active Levalbuterol Tartrate 45 MCG/ACT Inhalation Aerosol (Xopenex HFA)Indications:CO PD, group D, by GOLD 2017 classification ([facility]),COPD exacerbation ([facility]),Need for case management follow-up Inhale 1 Puff by mouth every 4 hours as needed for Wheezing. 15 g 12 04/29/19 25 Active Nebulizer/Tubing/M outhpiece KitIndications:Nee d for case management follow-up,COPD, group D, by GOLD 2017 classification ([facility]) Replace tubing and mouthpiece regularly 3 Kit 3 05/05/19 25 Active Hospital, Clinic, or Other Facility Administered Medication Ordered Dose Route Frequency Start Date End Date Status Albuterol Sulfate (Proventil) (2.5 MG/3ML) 0.083% inhalation solution 2.5 mgIndications:COPD, group D, by GOLD 2017 classification ([facility]) 2.5 mg NEBULIZER PRN 01/15/2024 01/14/2025 Acti ve albuterol (VENTOLIN HFA/PROVENTIL HFA) inhalerIndications:COPD , group D, by GOLD 2017 classification (HCC) 3 Puff IN PRN 01/15/2024 01/14/2025 Acti ve documented as of this encounter (statuses as of 05/06/2024) Active Problems Problem Noted Date Diagnosed Date [...] as of this encounter (statuses as of 05/06/2024) Resolved Problems Problem Noted Date Diagnosed Date Resolved Date Chronic hypoxemic respiratory failure 08/01/2016 08/18/2018 COPD, severe 07/08/2013 02/10/2018 documented as of this encounter (statuses as of 05/06/2024) Immunizations Name Administration Dates Next Due COVID-19 mRNA, LNP-s, No Pre serve, 2-Dose Series ([employer]) 04/23/2021,08/25/2020,08/04/2020 COVID-19, LNP-s, No Preserve , Eddy-sucrose, Ages 12+ ([employer]) 11/04/2021 COVID-19, MRNA-LNP, 24-25, P R, 30MCG/0.3ML, IM, 12YRS AND ABOVE ([employer]-Comirnaty) 01/14/2024 COVID-19, MRNA-LNP, PF, 30 M CG/0.3 mL, 12 YRS AND ABOVE, IM (P[employer]ER-Comirnaty) 02/23/2023 Pneumococcal Conjugate Vacci ne, 20-valent ([id number]) 12/12/2021 Pneumococcal Polysaccharide PPV23 (Pneumovax) 08/10/2013,03/21/2011(Deferred: Patient [...] 07/24/2023 Does the household have a re gular [...] encounter Miscellaneous Notes * Telephone Encounter - Kevin Alexander RN - 05/05/2024 4:12 PM EST Thank you, order faxed to [facility] [employer]. * Telephone Encounter - Edelmira Cavanaugh MD - 05/05/2024 3:52 PM EST Done * Telephone Encounter - Kevin Alexander RN - 05/05/2024 3:24 PM EST Liang called in requesting refill order for his nebulizer machine, specifically a mouthpiece and tubing. I have pended the order. Thank you documented in this encounter Plan of Treatment Upcoming Encounters Date Type Department Care Team (Late st Contact Info) Description 05/17/2024 11:30 AM EST Office Visit Pulmonary Medicine, [facility] [address] [facility] [place] [address] Nima Carlin MD [address] [place] [facility] [place] [address] 07/14/2024 1:00 PM EDT Office Visit General Internal Medicine [facility] [address] [facility] [address] Edelmira Cavanaugh MD 200 [place] [address] Scheduled Procedures Name Priority Associated Diagnoses Date/Ti [...] Colorectal Cancer Screening 01/03/2025 GFR 01/14/2025 01/15/2024, 03/0 04/2023, 01/08/2023, Additional history exists HbA1c 01/14/2025 01/15/2024, 12/0 09/2022, 01/08/2023 O2 ASSESSMENT COMPLETED IN PAST YEAR [...] Diagnosis Need for case management follow-up- Primary COPD, group D, by GOLD 2017 classification (HCC) documented in this encounter Advance Directives Healthcare Agents on File Name Relationship Healthcare Agent Relationship Communication Jeannie Mishra Other - (no specific identity) Health Care Optical Engineering Manager (appointed verbally by patient or by statute hierarchy) Care Teams Marketing Professional Relationship Specialty Start Date End Date Edelmira Cavanaugh MD [address] [facility] [place] [address] PCP - General Internal Medicine 05/09/21 documented as of this encounter
--- OUTSIDE RECORDS SUMMARY | 2024-07-11 21:33 | External Medical Summary | Summary of Care ---
Author Name Unknown Organization [facility] Address [address] [place] [address] Phone [phone] Care Team Providers Care Earth Burner Name Role Phone Edelmira Cavanaugh MD Primary Care Provider [phone] Encounter Details Date Type Department Care Team (Late st Contact Info) Description 04/25/2024 Population Health External Data Unspecified Department Allergies Active Allergy Reactions Criticality Noted Date Comments Levofloxacin Other (Please comment) Low 10/18/2021 Rash documented as of this encounter (statuses as of 04/25/2024) Medications aspirin enteric coated 81 MG TBEC [...] s:COPD, group D, by GOLD 2017 classification ([facility]) Inhale 2 Puffs by mouth every 4 hours as needed for Cough, Shortness of Breath or Wheezing. 54 g 3 12/24/19 23 Active Levalbuterol Tartrate 45 MCG/ACT Inhalation Aerosol (Xopenex HFA)Indications:CO PD, group D, by GOLD 2017 classification ([facility]),COPD exacerbation ([facility]) Inhale 1 Puff by mouth every 4 hours as needed for Wheezing. 15 g 12 01/09/20 23 Active Levalbuterol HCl 1.25 MG/3ML Inhalation Nebulization SolutionIndication s:COPD, group D, by GOLD 2017 classification ([facility]),COPD exacerbation ([facility]) Inhale 3 mL via nebulizer every 8 hours as needed for Wheezing. 120 mL 5 01/09/20 23 Active Fluticasone-Umecli din-Vilant 100-62.5-25 MCG/ACT Aerosol Powder Breath Activated (Trelegy Ellipta) Inhale 1 Puff by mouth in the morning. Please rinse mouth and gargle with water after use.. 180 Blister Dosing Unit 3 01/21/20 23 Active Rosuvastatin Calcium 20 MG Oral Tablet (Crestor)Indicatio ns:Dyslipidemia, goal LDL below 100 TAKE 1 TABLET BY MOUTH IN THE MORNING 90 Tablet 3 06/22/19 24 Active Cyclobenzaprine HCl 10 MG Oral Tablet (Flexeril)Indicati ons:RLS (restless legs syndrome) Take 1 Tablet by mouth every 6 hours as needed for Muscle spasms. 30 Tablet 3 06/22/19 24 Active amLODIPine Besylate 2.5 MG [...] 20 MG Oral Tablet (Deltasone)Indicat ions:COPD exacerbation ([facility]) NEEDED RESCUE KIT. Take 2 tabs by mouth for 5 days 10 Tablet 1 08/22/20 24 Active predniSONE 10 MG Oral Tablet (Deltasone)Indicat ions:COPD exacerbation (HCC) Take 5 tabs for 2 days, 4 tabs for 2 days, 3 tabs for 2 days, 2 tabs for 2 days 1 tab for 2 days 30 Tablet 01/28/20 Active Azithromycin 250 MG Oral Tablet (Zithromax Z-Jason)Indications: COPD exacerbation (HCC) Take two tablets by mouth on first day, then 1 tablet daily until gone 6 Tablet 01/28/20 Active Benzonatate 100 MG Oral Capsule (Tessalon Perles)Indications :COPD exacerbation (HCC) Take 1 Capsule by mouth 3 times a day as needed for Cough. Do not cut, crush, or chew. 50 Capsule 1 01/28/20 Active Metoprolol Succinate ER 25 MG Oral Tablet Extended Release 24 Hour (toPROL XL)Indications:HTN , goal below 140/90 TAKE 1/2 (ONE-HALF) TABLET BY MOUTH AT BEDTIME 45 Tablet 1 02/29/20 24 Active Montelukast Sodium 10 MG Oral Tablet (Singulair) TAKE 1 TABLET BY MOUTH AT BEDTIME 90 Tablet 3 03/10/20 24 Active Hospital, Clinic, or Other Facility Administered Medication Ordered Dose Route Frequency Start Date End Date Status Albuterol Sulfate (Proventil) (2.5 MG/3ML) 0.083% inhalation solution 2.5 mgIndications:COPD, group D, by GOLD 2017 classification ([facility]) 2.5 mg NEBULIZER PRN 01/15/2024 01/14/2025 Acti ve albuterol (VENTOLIN HFA/PROVENTIL HFA) inhalerIndications:COPD , group D, by GOLD 2017 classification ([facility]) 3 Puff IN PRN 01/15/2024 01/14/2025 Acti ve documented as of this encounter (statuses as of 04/25/2024) Active Problems Problem Noted Date Diagnosed Date Acute and chronic respiratory failure with hypox ia 06/22/2023 HTN, goal below 140/90 06/22/2023 RLS (restless legs syndrome) 06/22/2023 Prediabetes 03/16/2023 Overview: Per Prediabetes protocol Dependence on continuous supplemental oxygen 03/ Nocturnal hypoxemia 10/18/2021 Overview (10/18/2021): Wearing 2 [...] as of this encounter (statuses as of 04/25/2024) Resolved Problems Problem Noted Date Diagnosed Date Resolved Date Chronic hypoxemic respiratory failure 08/01/2016 08/18/2018 COPD, severe 07/08/2013 02/10/2018 documented as of this encounter (statuses as of 04/25/2024) Immunizations Name Administration Dates Next Due COVID-19 mRNA, LNP-s, No Pre serve, 2-Dose Series ([employer]) 04/23/2021,08/25/2020,08/04/2020 COVID-19, LNP-s, No Preserve , Eddy-sucrose, Ages 12+ ([employer]) 11/04/2021 COVID-19, MRNA-LNP, 24-25, P R, 30MCG/0.3ML, IM, 12YRS AND ABOVE ([employer]-ComirnatvBrand) 01/14/2024 COVID-19, MRNA-LNP, PF, 30 M CG/0.3 mL, 12 YRS AND ABOVE, IM (Level-ComirnatvBrand) 02/23/2023 Pneumococcal Conjugate Vacci ne, 20-valent ([id number]) 12/12/2021 Pneumococcal Polysaccharide PPV23 (Pneumovax) 08/10/2013,03/21/2011(Deferred: Patient [...] 11:30 AM EST Office Visit Pulmonary Medicine, [facility] [address] [facility] [place] [address] Nima Carlin MD [address] [facility] [place] [id number] 07/14/2024 1:00 PM EDT Office Visit General Internal Medicine [address] [place] [address] [place] [address] Edelmira Cavanaugh MD [address] [place] [address] Scheduled Procedures Name Priority Associated Diagnoses Date/Ti [...] COPD 01/14/2025 01/15/2024 Lipid Panel 01/14/2029 01/15/2024, 03/0 04/2023, 01/08/2023, [...] Other - (no specific identity) Health Care Molder Feeder (appointed verbally by patient or by statute hierarchy) Care Teams Earth Burner Relationship Specialty Start Date End Date Edelmira Cavanaugh MD [address] [place] [address] PCP - General Internal Medicine 05/09/21 documented as of this encounter
--- OUTSIDE RECORDS SUMMARY | 2024-07-11 21:33 | External Medical Summary | Summary of Care ---
Author Name Unknown Organization [facility] Address [address] [place] [address] Phone [phone] Care Team Providers Care Lidar Scientist Name Role Phone Cynthia Cavanaugh MD Primary Care Provider [phone] Reason for Visit * Reason Comments eRx-Medication Refill Encounter Details Date Type Department Care Team (Late st Contact Info) Description 06/04/2024 Refill General Internal Medicine [facility] [address] [facility] [place] [address] Cynthia Cavanaugh MD [address] [facility] [place] [address] HTN, goal below 140/90 Allergies Active Allergy Reactions Criticality Noted Date Comments Levofloxacin Other (Please comment) Low 10/18/2021 Rash documented as of this encounter (statuses as of 06/06/2024) Medications aspirin enteric coated 81 MG TBEC [...] toe nails 8 mL 5 023 Active Levalbuterol HCl 1.25 MG/3ML Inhalation Nebulization SolutionIndicatio ns:COPD, group D, by GOLD 2017 classification (HCC),COPD exacerbation (HCC) Inhale 3 mL via nebulizer every 8 hours as needed for Wheezing. 120 mL 023 Active Rosuvastatin Calcium 20 MG Oral Tablet (Crestor)Indicati ons:Dyslipidemia, goal LDL below 100 TAKE 1 TABLET BY MOUTH IN THE MORNING 90 Tablet 3 024 Active Cyclobenzaprine HCl 10 MG Oral Tablet (Flexeril)Indicat ions:RLS (restless legs syndrome) Take 1 Tablet by mouth every 6 hours as needed for Muscle spasms. 30 Tablet 024 Active Probiotic Blend Oral Capsule Take [...] AT BEDTIME 90 Tablet 3 024 Active Albuterol Sulfate HFA 108 (90 Base) MCG/ACT Inhalation Aerosol SolutionIndicatio ns:COPD, group D, by GOLD 2017 classification ([facility]),COPD exacerbation ([facility]),Need for case management follow-up Inhale 2 Puffs by mouth every 4 hours as needed for Cough, Shortness of Breath or Wheezing. 54 g 3 025 Active Fluticasone-Umecl idin-Vilant 100-62.5-25 MCG/ACT Aerosol Powder Breath Activated (Trelegy Ellipta)Indicatio ns:COPD, group D, by GOLD 2017 classification ([facility]),COPD exacerbation ([facility]),Need for case management follow-up Inhale 1 Puff by mouth in the morning. Please rinse mouth and gargle with water after use.. 180 Blister Dosing Unit 3 025 Active Levalbuterol Tartrate 45 MCG/ACT Inhalation Aerosol (Xopenex HFA)Indications:C OPD, group D, by GOLD 2017 classification ([facility]),COPD exacerbation ([facility]),Need for case management follow-up Inhale 1 Puff by mouth every 4 hours as needed for Wheezing. 15 g 12 025 Active Nebulizer/Tubing/ Mouthpiece KitIndications:Ne ed for case management follow-up,COPD, group D, by GOLD 2017 classification ([facility]) Replace tubing and mouthpiece regularly 3 Kit 3 025 Active amLODIPine Besylate 2.5 MG Oral Tablet (Norvasc)Indicati ons:HTN, goal below 140/90 TAKE 1 TABLET BY MOUTH IN THE MORNING 90 Tablet 3 025 Active amLODIPine Besylate 2.5 MG Oral Tablet (Norvasc)Indicati ons:HTN, goal below 140/90 Take 1 Tablet by mouth in the morning. 90 Tablet 3 024 2024 Discontinued Hospital, Clinic, or Other Facility Administered Medication Ordered Dose Route Frequency Start Date End Date Status Albuterol Sulfate (Proventil) (2.5 MG/3ML) 0.083% inhalation solution 2.5 mgIndications:COPD, group D, by GOLD 2017 classification ([facility]) 2.5 mg NEBULIZER PRN 01/15/2024 01/14/2025 Acti ve albuterol (VENTOLIN HFA/PROVENTIL HFA) inhalerIndications:COPD , group D, by GOLD 2017 classification ([facility]) 3 Puff IN PRN 01/15/2024 01/14/2025 Acti ve documented as of this encounter (statuses as of 06/06/2024) Active Problems Problem Noted Date Diagnosed Date [...] as of this encounter (statuses as of 06/06/2024) Resolved Problems Problem Noted Date Diagnosed Date Resolved Date Chronic hypoxemic respiratory failure 08/01/2016 08/18/2018 COPD, severe 07/08/2013 02/10/2018 documented as of this encounter (statuses as of 06/06/2024) Immunizations Name Administration Dates Next Due COVID-19 mRNA, LNP-s, No Pre serve, 2-Dose Series ([employer]) 04/23/2021,08/25/2020,08/04/2020 COVID-19, LNP-s, No Preserve , Eddy-sucrose, Ages 12+ (Pfizer) 11/04/2021 COVID-19, MRNA-LNP, 24-25, P R, 30MCG/0.3ML, IM, 12YRS AND ABOVE ([facility]) 01/14/2024 COVID-19, MRNA-LNP, PF, 30 M CG/0.3 mL, 12 YRS AND ABOVE, IM ([facility]) 02/23/2023 Pneumococcal Conjugate Vacci ne, 20-valent ([id number]) 12/12/2021 Pneumococcal Polysaccharide PPV23 (Pneumovax) 08/10/2013,03/21/2011(Deferred: Patient [...] money to get more. Never true 07/24/2023 Do you need food for this week? No 07/24/2023 Sex and Gender Information Value Date Recorded Sex Assigned at Male 07/26/2018 11:36 AM EDT Legal Sex Male 6:43 AM EST Gender Identity Male 07/26/2018 11:36 AM EDT Sexual Orientation Straight 07/26/2018 11 :36 AM EDT documented as of this encounter Miscellaneous Notes * Telephone Encounter - Cynthia Cavanaugh MD - 06/06/2024 1:02 PM ESTSigned Prescriptions: Disp Refills amLODIPine Besylate 2.5 MG Oral Tablet (No*90 Tab*3 Sig: TAKE 1 TABLET BY MOUTH IN THE MORNING Authorizing Provider: CYNTHIA CAVANAUGH * Telephone Encounter - Vandana Altman RP - 06/06/2024 12:13 PM ESTPending Prescriptions: Disp Refills amLODIPine Besylate 2.5 MG Oral Tablet (No*90 Tab*1 Sig: TAKE 1 TABLET BY MOUTH IN THE MORNING * Telephone Encounter - Vandana Altman RPh - 06/06/2024 12:13 PM EST Unable to authorize medication refills for pended medication(s) at this time. Part of the protocol criteria used for refill authorization was not satisfied. Patient needs a heart rate below 100. Please approve if appropriate. Pulse Readings from Last 3 Encounters: 01/15/24 113 07/27/23 109 06/22/23 87 Vandana Waggoner Clinical Pharmacist [facility] [phone] 06/06/2024, 12:13 PM * Telephone Encounter - Vandana Altman RPh - 06/06/2024 12:13 PM EST Did you pend patient's preferred pharmacy and medication before forwarding?yes Pharmacy: [facility] [address] [address] [address] Pending Prescriptions: Disp Refills amLODIPine Besylate 2.5 MG Oral Tablet (N*90 Tab*1 Sig: TAKE 1 TABLET BY MOUTH IN THE MORNING Last Visit: 01/15/2024 (in office), Visit date not found (telemedicine) Next Visit: 07/14/2024 If no future appointments scheduled, and last appointment is greater than a year ago, please schedule patient for a follow-up appointment Last date the medication was ordered: 06/22/23 Is this request for a controlled substance?No Urine Drug Screen:No results found for this or any previous visit. Patient Phone Numbers Labs: Lab Results Component Value Date/Time CREAT 1.0 01/15/2024 09:47 AM CREAT 1.0 11/08/2019 08:28 AM POTASSIUM 4.3 01/15/2024 09:47 AM POTASSIUM 4.9 11/08/2019 08:28 AM TSH 1.34 02/20/2022 03:20 PM LDL 102 01/15/2024 09:47 AM LDL 96 11/08/2019 08:28 AM LDL NOT APPLICABLE 11/08/2019 08:28 AM ALT 20 01/15/2024 09:47 AM ALT 19 11/08/2019 08:28 AM HGBA1C 6.0 (H) 01/15/2024 09:41 AM documented in this encounter Plan of Treatment Upcoming Encounters Date Type Department Care Team (Late st Contact Info) Description 07/14/2024 1:00 PM EDT Office Visit General Internal Medicine [facility] [place] [address] [place] [address] Cynthia Cavanaugh MD [address] [place] [address] 12/13/2024 12:00 PM EDT Office Visit Pulmonary Medicine, [facility] [address] [place] [address] Nima Carlin MD [address] [facility] [address] Scheduled Procedures Name Priority Associated Diagnoses Date/Ti [...] Colorectal Cancer Screening 01/03/2025 GFR 01/14/2025 01/15/2024, 030 04/2023, 01/08/2023, Additional history exists HbA1c 01/14/2025 01/15/2024, 12/0 09/2022, 01/08/2023 O2 ASSESSMENT COMPLETED IN PAST YEAR FOR COPD 01/14/2025 01/15/2024 Lipid Panel 01/14/2029 01/15/2024, 03/0 04/2023, 01/08/2023, Additional history exists RETIRED - COLONOSCOPY-EVERY 5 YRS AGES 18-100 Discontinued 01/04/2020, 09/01/2013, 09/01/2013 Pneumococcal Vaccine: 50+ Years Completed 12/12/2021, 08/10/2013 Zoster Vaccines Completed 12/02/2022, 11/10/2019 Alpha-1 Antitrypsin Completed 06/05/2023, 2 Lung Cancer Screening Completed 07/06/2023 , 02/25/2021, [...] as of this encounter Visit Diagnoses Diagnosis HTN, goal below 140/90 Unspecified essential hypertension documented in this encounter Advance Directives Healthcare Agents on File Name Relationship Healthcare Agent Relationship Communication Jeannie Mishra Other - (no specific identity) Health Care Staff Physical Therapy Assistant (appointed verbally by patient or by statute hierarchy) Care Teams Lidar Scientist Relationship Specialty Start Date End Date Cynthia Cavanaugh MD [address] [place] [address] PCP - General Internal Medicine 05/09/21 documented as of this encounter
--- OUTSIDE RECORDS SUMMARY | 2024-07-11 21:33 | External Medical Summary | Summary of Care ---
Author Name Unknown Organization [facility] Address [address] [place] [address] Phone [phone] Care Team Providers Care Husker Operator Name Role Phone Edelmira Cavanaugh MD Primary Care Provider Reason for Visit * Reason Comments Outpatient Testing Encounter Details Date Type Department Care Team (Late st Contact Info) Description 01/15/2024 9:30 AM EDT Laboratory Laboratory [facility] [address] [place] [id number] [facility] [address] [place] [address] Dyslipidemia, goal LDL below 100; Chronic obstructive pulmonary disease with (acute) exacerbation (HCC); Prediabetes Allergies Active Allergy Reactions Criticality Noted Date Comments Levofloxacin Other (Please comment) Low 10/18/2021 Rash documented as of this encounter (statuses as of 01/15/2024) Medications Medication Sig Dispensed Refills Start Date End Date Status aspirin enteric coated 81 MG TBEC Take 1 Tab by mouth daily. 100 Tab 3 5 Active Multiple Vitamin (ONE-A-DAY MENS) Tablet Take 1 Tablet by mouth in the morning. 9 Active Acetaminophen 500 MG Oral Tablet (Tylenol) Take 1-2 Tablets by mouth every 8 hours as needed for Fever >38C(100.5F), Pain, Mild or Pain, Moderate. Active oxygen IN GAS 2 LPM via NC continuously 1 Each 3 Active guaiFENesin ER 600 MG Oral Tablet Extended Release 12 Hour Take 1 Tablet by mouth as needed. 3 Active Terbinafine HCl 1 % External [...] :COPD, group D, by GOLD 2017 classification ([facility]) Inhale 2 Puffs by mouth every 4 hours as needed for Cough, Shortness of Breath or Wheezing. 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 15 g 12 3 Active Levalbuterol HCl 1.25 MG/3ML Inhalation Nebulization SolutionIndications :COPD, group D, by GOLD 2017 classification ([facility]),COPD exacerbation ([facility]) Inhale 3 mL via nebulizer [...] at bedtime. 90 Tablet 3 3 Active Rosuvastatin Calcium 20 MG Oral Tablet (Crestor)Indication s:Dyslipidemia, goal LDL below 100 TAKE 1 TABLET BY MOUTH IN THE MORNING 90 Tablet 3 4 Active Cyclobenzaprine HCl 10 MG Oral Tablet (Flexeril)Indicatio ns:RLS (restless legs syndrome) Take 1 Tablet by mouth every 6 hours as needed for Muscle spasms. 30 Tablet 3 4 Active Metoprolol Succinate ER 25 MG Oral Tablet Extended Release 24 Hour (toPROL XL)Indications:HTN, goal below 140/90 Take 0.5 Tablets by mouth in the morning and 0.5 Tablets before bedtime. 4 Active amLODIPine Besylate 2.5 MG Oral Tablet (Norvasc)Indication s:HTN, goal below 140/90 Take 1 Tablet by mouth in the morning. 90 Tablet 3 4 Active Probiotic Blend Oral Capsule Take 1 Tablet by mouth in the morning and 1 Tablet at noon and 1 Tablet in the evening. Take before meals. Take while using antibiotics and for 1 week after stopping antibiotics, then stop.. 90 Capsule 4 Active predniSONE 20 MG Oral Tablet (Deltasone)Indicati ons:COPD exacerbation (HCC) NEEDED RESCUE KIT. Take 2 tabs by mouth for 5 days 10 Tablet 1 4 Active Doxycycline Hyclate 100 MG Oral Capsule Take 1 Capsule by mouth in the morning and 1 Capsule before bedtime. until gone.. 28 Capsule 4 01/15/20 24 Discontinu ed(End of Procedure) documented as of this encounter (statuses as of 01/15/2024) Active Problems Problem Noted Date Diagnosed Date Acute and chronic respiratory failure with hypox ia 06/22/2023 Chronic obstructive pulmonar y disease with (acute) exacerbation 06/22/2023 HTN, goal below 140/90 06/22/2023 RLS [...] as of this encounter (statuses as of 01/15/2024) Resolved Problems Problem Noted Date Diagnosed Date Resolved Date Chronic hypoxemic respiratory failure 08/01/2016 08/18/2018 COPD, severe 07/08/2013 02/10/2018 documented as of this encounter (statuses as of 01/15/2024) Immunizations Name Administration Dates Next Due COVID-19 mRNA, LNP-s, No Pre serve, 2-Dose Series ([employer]) 04/23/2021,08/25/2020,08/04/2020 COVID-19, LNP-s, No Preserve , Eddy-sucrose, Ages 12+ ([employer]) 11/04/2021 COVID-19, MRNA-LNP, 23-24, P F, 30 MCG/0.3 mL, 12 YRS AND ABOVE, IM ([facility]) 02/23/2023 COVID-19, MRNA-LNP, 24-25, P R, 30MCG/0.3ML, IM, 12YRS AND ABOVE ([employer]) 01/14/2024 Pneumococcal Conjugate Vacci ne, 20-valent ([id number]) 12/12/2021 Pneumococcal Polysaccharide PPV23 (Pneumovax) 08/10/2013,03/21/2011(Deferred: Patient [...] Care Team (Late st Contact Info) Description 01/15/2024 10:20 AM EDT Office Visit General Internal Medicine [facility] [address] [facility] [place] [address] Edelmira Cavanaugh MD [address] [facility] [place] [address] Arrived 02/29/2024 11:40 AM EST Office Visit Pulmonary Medicine, [facility] [address] [place] [address] Guille Hubbard DO [address] [place] [address] Pending Results Name Type Priority Associated Diagnoses Date /Time COMPREHENSIVE METABOLIC PANEL Lab Routine Dyslipidemia, goal LDL below 100 01/15/2024 9:47 AM EDT LIPID PANEL WITH DIRECT LDL IF TG IS HIGH Lab Routine Dyslipidemia, goal LDL below 100 01/15/2024 9:47 AM EDT HEMOGLOBIN A1C Lab Routine Prediabetes 01/15/2024 9:47 AM EDT Scheduled Procedures Name Priority Associated Diagnoses Date/Ti me COLONOSCOPY FLEXIBLE PROXIMAL DIAGNOSTIC Recall History of colon polyps Health Maintenance Due Date Last Done Comments Albumin/Creatinine Ratio 1978 Cologuard 2005 Fecal Occult Blood Test 2005 Sigmoidoscopy 2005 *ADVANCE DIRECTIVE NOT ON FILE 09/18/2018 DTap/Tdap Vaccines (2 - Td or Tdap) 07/09/2023 07/08/2013 HbA1c 03/11/2024 03/11/2023, 01/08/2023 Depression Screening 05/01/2024 05/01/2023 GFR 06/04/2024 06/05/2023, 0 08/2022, 06/20/2022, Additional history exists O2 ASSESSMENT COMPLETED IN PAST YEAR FOR COPD 07/26/2024 07/27/2023 Colonoscopy 01/03/2025 01/04/2020, 0512/2013, 09/01/2013 Colorectal Cancer Screening 01/03/2025 Lipid Panel 06/04/2028 06/05/2023, 100 08/2022, 06/20/2022, Additional history exists RETIRED - COLONOSCOPY-EVERY 5 YRS AGES 18-100 Discontinued 01/04/2020, 09/01/2013, 09/01/2013 Pneumococcal Vaccine: Pediatrics (0 to 5 Years) and At-Risk Patients (6 to 64 Years) Completed 12/12/2021, 08/10/2013 Zoster Vaccines Completed 12/02/2022, 11/10/2019 Alpha-1 Antitrypsin Completed 06/05/2023, Lung Cancer Screening Completed 07/06/2023 , 02/25/2021, 02/23/2020, Additional history exists COVID-19 Vaccine Completed 01/14/2024, , 11/04/2021, Additional history exists Influenza Vaccine (FLU shot) Completed 01/14/2024, 01/04/2023, 12/12/2021, Additional history exists HPV (Gardasil) Vaccine Aged [...] Not on filedocumented as of this encounter Procedures Procedure Name Priority Date/Time Associated Diagnosis Comments CBC Routine 01/15/2024 9:47 AM EDT Chronic obstructive pulmonary disease with (acute) exacerbation (HCC) documented in this encounter Results * (ABNORMAL) CBC (01/15/2024 9:47 AM EDT) WBC 10.09 4.00 - 10.80 K/uL 01/15/2024 9:55 AM EDT [facility] 56 RBC 4.30 4.50 - 5.25 M/uL 01/15/2024 9:55 AM EDT [facility] 56 HGB 13.4(L) 14.0 - 16.8 g/dL 01/15/2024 9:55 AM EDT [facility] 56 HCT 41.8 40.0 - 48.4 % 01/15/2024 9:55 AM EDT [facility] 56 MCV 97.2 82.0 - 99.5 fL 01/15/2024 9:55 AM EDT [facility] 56 MCH 31.2 27.0 - 34.0 pg 01/15/2024 9:55 AM EDT [facility] 56 MCHC 32.1 32.0 - 36.0 g/dL 01/15/2024 9:55 AM EDT [facility] 56 RDW 13.3 11.5 - 15.5 % 01/15/2024 9:55 AM EDT [facility] 56 PLT 244 140 - 400 K/uL 01/15/2024 9:55 AM EDT [facility] 56 MPV 9.9 6.6 - 11.1 fL 01/15/2024 9:55 AM T [facility] 56 Blood Venous blood specimen / Unknown Venipuncture / Unknown 01/15/2024 9:47 AM EDT 01/15/2024 9:47 AM EDT Edelmira Cavanaugh MD LAB BLOOD ORDERABLES Performing Organization Address City/State/[facility] Co de Phone Number [facility] [address] [place] [address] documented in this encounter Visit Diagnoses Diagnosis Dyslipidemia, goal LDL below 100 Other and unspecified hyperlipidemia Chronic obstructive pulmonary disease with (acute) exacerbation (HCC) Prediabetes Other abnormal glucose documented in this encounter Advance Directives Healthcare Agents on File Name Relationship Healthcare Agent Relationship Communication Jeannie Mishra Other - (no specific identity) Health Care Garbage Pick Up Man (appointed verbally by patient or by statute hierarchy) Care Teams Husker Operator Relationship Specialty Start Date End Date Edelmira Cavanaugh MD [address] [place] [address] PCP - General Internal Medicine 05/09/21 documented as of this encounter
--- OUTSIDE RECORDS SUMMARY | 2024-07-11 21:33 | External Medical Summary | Summary of Care ---
Author Name Unknown Organization [facility] Address [address] [place] [address] Phone [phone] Care Team Providers Care Supervisor Cellars Name Role Phone Edelmira Cavanaugh MD Primary Care Provider [phone] Reason for Referral * (Within 10 days (routine)) - Authorized Specialty Diagnoses / Procedures Referred By Aubrey t Referred To Contact Radiology Diagnoses History of tobacco abuse Procedures LUNG CANCER SCREENING PROGRAM REFERRAL Maame Ojeda CRNP [address] [place] [address] Phone: tel: fax: Referral ID Status Reason Start Date Expiration Date V isits Requested Visits Authorized [id number] Authorized 04/08/2025 [id number] Encounter Details Date Type Department Care Team (Late st Contact Info) Description 04/11/2024 Orders Only STAIR LUNG NODULE [address] [place], [place] [id number] Maame Ojeda CRNP [address] [place], [place] [id number] History of tobacco abuse* Allergies Active Allergy Reactions Criticality Noted Date Comments Levofloxacin Other (Please comment) Low 10/18/2021 Rash documented as of this encounter (statuses as of 04/11/2024) Medications aspirin enteric coated 81 MG TBEC [...] s:COPD, group D, by GOLD 2017 classification ([facility]) Inhale 2 Puffs by mouth every 4 hours as needed for Cough, Shortness of Breath or Wheezing. 54 g 3 12/24/19 23 Active Levalbuterol Tartrate 45 MCG/ACT Inhalation Aerosol (Xopenex HFA)Indications:CO PD, group D, by GOLD 2017 classification ([facility]),COPD exacerbation ([facility]) Inhale 1 Puff by mouth every 4 hours as needed for Wheezing. 15 g 12 01/09/20 23 Active Levalbuterol HCl 1.25 MG/3ML Inhalation Nebulization SolutionIndication s:COPD, group D, by GOLD 2017 classification ([facility]),COPD exacerbation ([facility]) Inhale 3 mL via nebulizer every 8 [...] mgIndications:COPD, group D, by GOLD 2017 classification ([facility]) 2.5 mg NEBULIZER PRN 01/15/2024 01/14/2025 Acti ve albuterol (VENTOLIN HFA/PROVENTIL HFA) inhalerIndications:COPD , group D, by GOLD 2017 classification ([facility]) 3 Puff IN PRN 01/15/2024 01/14/2025 Acti ve documented as of this encounter (statuses as of 04/11/2024) Active Problems Problem Noted Date Diagnosed Date [...] as of this encounter (statuses as of 04/11/2024) Resolved Problems Problem Noted Date Diagnosed Date Resolved Date Chronic hypoxemic respiratory failure 08/01/2016 08/18/2018 COPD, severe 07/08/2013 02/10/2018 documented as of this encounter (statuses as of 04/11/2024) Immunizations Name Administration Dates Next Due COVID-19 mRNA, LNP-s, No Pre serve, 2-Dose Series ([employer]) 04/23/2021,08/25/2020,08/04/2020 COVID-19, LNP-s, No Preserve , Eddy-sucrose, Ages 12+ ([employer]) 11/04/2021 COVID-19, MRNA-LNP, 24-25, P R, 30MCG/0.3ML, IM, 12YRS AND ABOVE (Pfizer-Comirnat) 01/14/2024 COVID-19, MRNA-LNP, PF, 30 M CG/0.3 mL, 12 YRS AND ABOVE, IM ([employer]-Comirnat) 02/23/2023 Pneumococcal Conjugate Vacci ne, 20-valent ([id number]) 12/12/2021 Pneumococcal Polysaccharide PPV23 (Pneumovax) 08/10/2013,03/21/2011(Deferred: Patient [...] Care Team (Late st Contact Info) Description 04/26/2024 8:20 AM EST Office Visit Pulmonary Medicine, [facility] [address] [place] [address] Nima Carlin MD [address] [place] [address] 07/14/2024 1:00 PM EDT Office Visit General Internal Medicine [facility] [address] [facility] [place] [address] Edelmira Cavanaugh MD [address] [facility] [place] [address] Scheduled Orders Name Type Priority Associated Diagnoses Orde r Schedule LUNG CANCER SCREENING PROGRAM REFERRAL Medical Imaging Routine History of tobacco abuse Expected: 04/08/2025, Expires: 04/11/2026 Scheduled Procedures Name Priority Associated Diagnoses Date/Ti [...] as of this encounter Visit Diagnoses Diagnosis History of tobacco abuse- Primary Personal history of tobacco use, presenting hazards to health documented in this encounter Advance Directives Healthcare Agents on File Name Relationship Healthcare Agent Relationship Communication Jeannie Mishra Other - (no specific identity) Health Care Tractor Crane Engineer (appointed verbally by patient or by statute hierarchy) Care Teams Supervisor Cellars Relationship Specialty Start Date End Date Edelmira Cavanaugh MD [address] [place] [address] PCP - General Internal Medicine 05/09/21 documented as of this encounter
--- OUTSIDE RECORDS SUMMARY | 2024-07-11 21:33 | External Medical Summary | Summary of Care ---
Author Name Unknown Organization [facility] Address [address] [place] [address] Phone [phone] Care Team Providers Care Teenage Program Director Name Role Phone Edelmira Cavanaugh MD Primary Care Provider [phone] Reason for Visit * Reason Onset Date Comments Order Request 01/26/2024 Encounter Details Date Type Department Care Team (Late st Contact Info) Description 01/26/2024 Telephone General Internal Medicine [facility] [address] [place] [address] Edelmira Cavanaugh MD [address] [place] [address] Order Request Allergies Active Allergy Reactions Criticality Noted Date Comments Levofloxacin Other (Please comment) Low 10/18/2021 Rash documented as of this encounter (statuses as of 01/29/2024) Medications Medication Sig Dispensed Refills Start Date End Date Status aspirin enteric coated 81 MG TBEC Take 1 Tab by mouth daily. 100 Tab 3 09/06/2014 Active Multiple Vitamin (ONE-A-DAY MENS) Tablet Take 1 Tablet by mouth in the morning. 08/18/2018 Active Acetaminophen 500 MG Oral Tablet (Tylenol) Take 1-2 Tablets by mouth every 8 hours as needed for Fever >38C(100.5F), Pain, Mild or Pain, Moderate. Active oxygen IN GAS 2 LPM via NC continuously 1 Each 04/14/2022 Active guaiFENesin ER 600 MG Oral Tablet Extended Release 12 Hour Take 1 Tablet by mouth as needed. 06/11/2022 Active Terbinafine HCl 1 % External Cream [...] or Wheezing. 54 g 3 12/23/2022 Active Levalbuterol Tartrate 45 MCG/ACT Inhalation Aerosol [...] at bedtime. 90 Tablet 3 03/10/2023 Active Rosuvastatin Calcium 20 MG Oral Tablet (Crestor)Indications :Dyslipidemia, goal LDL below 100 TAKE 1 TABLET BY MOUTH IN THE MORNING 90 Tablet 3 06/22/2023 Active Cyclobenzaprine HCl 10 MG Oral Tablet (Flexeril)Indication s:RLS (restless legs syndrome) Take 1 Tablet by mouth every 6 hours as needed for Muscle spasms. 30 Tablet 3 06/22/2023 Active amLODIPine Besylate 2.5 MG Oral Tablet (Norvasc)Indications :HTN, goal below 140/90 Take 1 Tablet by mouth in the morning. 90 Tablet 3 06/22/2023 Active Probiotic Blend Oral Capsule Take 1 Tablet by mouth in the morning and 1 Tablet at noon and 1 Tablet in the evening. Take before meals. Take while using antibiotics and for 1 week after stopping antibiotics, then stop.. 90 Capsule 08/10/2023 Active predniSONE 20 MG Oral Tablet (Deltasone)Indicatio ns:COPD exacerbation (HCC) NEEDED RESCUE KIT. Take 2 tabs by mouth for 5 days 10 Tablet 1 11/26/2023 Active Metoprolol Succinate ER 25 MG Oral Tablet Extended Release 24 Hour (toPROL XL)Indications:HTN, goal below 140/90 Take 0.5 Tablets by mouth in the morning. 01/15/2024 Active predniSONE 10 MG Oral Tablet (Deltasone)Indicatio ns:COPD exacerbation (HCC) Take 5 tabs for 2 days, 4 tabs for 2 days, 3 tabs for 2 days, 2 tabs for 2 days 1 tab for 2 days 30 Tablet 01/28/2024 Active Azithromycin 250 MG Oral Tablet (Zithromax Z-Jason)Indications:CO PD exacerbation (HCC) Take two tablets by mouth on first day, then 1 tablet daily until gone 6 Tablet 01/28/2024 Active Benzonatate 100 MG Oral Capsule (Tessalon Perles)Indications:C OPD exacerbation (HCC) Take 1 Capsule by mouth 3 times a day as needed for Cough. Do not cut, crush, or chew. 50 Capsule 1 01/28/2024 Active Hospital, Clinic, or Other Facility Administered Medication Ordered Dose Route Frequency Start Date End Date Status Albuterol Sulfate (Proventil) (2.5 MG/3ML) 0.083% inhalation solution 2.5 mgIndications:COPD, group D, by GOLD 2017 classification ([facility]) 2.5 mg NEBULIZER PRN 01/15/2024 01/14/2025 Acti ve albuterol (VENTOLIN HFA/PROVENTIL HFA) inhalerIndications:COPD , group D, by GOLD 2017 classification ([facility]) 3 Puff IN PRN 01/15/2024 01/14/2025 Acti ve documented as of this encounter (statuses as of 01/29/2024) Active Problems Problem Noted Date Diagnosed Date [...] as of this encounter (statuses as of 01/29/2024) Resolved Problems Problem Noted Date Diagnosed Date Resolved Date Chronic hypoxemic respiratory failure 08/01/2016 08/18/2018 COPD, severe 07/08/2013 02/10/2018 documented as of this encounter (statuses as of 01/29/2024) Immunizations Name Administration Dates Next Due COVID-19 mRNA, LNP-s, No Pre serve, 2-Dose Series ([employer]) 04/23/2021,08/25/2020,08/04/2020 COVID-19, LNP-s, No Preserve , Eddy-sucrose, Ages 12+ ([employer]) 11/04/2021 COVID-19, MRNA-LNP, 23-24, P F, 30 MCG/0.3 mL, 12 YRS AND ABOVE, IM ([employer]) 02/23/2023 COVID-19, MRNA-LNP, 24-25, P R, 30MCG/0.3ML, IM, 12YRS AND ABOVE ([employer]) 01/14/2024 Pneumococcal Conjugate Vacci ne, 20-valent ([id number]) 12/12/2021 Pneumococcal Polysaccharide PPV23 (Pneumovax) 08/10/2013,03/21/2011(Deferred: Patient [...] encounter Miscellaneous Notes * Telephone Encounter - Holly Veloz MED ASSIST - 01/29/2024 12:34 PM EDT Informed patient that 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 Was currently on his way to picker feeder the medications. Will make an appt if symptoms persist. * Telephone Encounter - Joyce Swann MD - 01/28/2024 1:26 PM EDT Script for prednisone taper, Zpack,Tessalon pearls sent. Please inform. Will need office visit if patient has ongoing symptoms. * Telephone Encounter - Josseline Charles PHARM Tech - 01/28/2024 12:43 PM EDT Pt has copd and has developed a really bad cough. He is looking for cough syrup, tessalon pearles, and a rescue kit. Pt said he just had an appointment about a week ago. He is asking for high priority. Thank you, Handy Charles, Discharging Machine Operator Box Car Checker [facility] ([facility]) 01/28/2024,12:45 PM * Telephone Encounter - Fatmata Barros OSA - 01/26/2024 11:24 AM EDT Pt would like medication for cough. And a rescue kit. Started 3 days ago documented in this encounter Plan of Treatment Upcoming Encounters Date Type Department Care Team (Late st Contact Info) Description 02/29/2024 11:40 AM EST Office Visit [facility] [address] [facility] [address] Guille Hubbard DO [address] [place] [address] 07/14/2024 1:00 PM EDT Office Visit General Internal Medicine [facility] [address] [place] [address] Edelmira Cavanaugh MD [address] [place] [address] Scheduled Procedures Name Priority Associated Diagnoses Date/Ti me COLONOSCOPY FLEXIBLE PROXIMAL DIAGNOSTIC Recall History of colon polyps Health Maintenance Due Date Last Done Comments Albumin/Creatinine Ratio 1978 Cologuard 2005 Fecal Occult Blood Test 2005 Sigmoidoscopy 2005 *ADVANCE DIRECTIVE NOT ON FILE 09/18/2018 DTap/Tdap Vaccines (2 - Td or Tdap) 07/09/2023 07/08/2013 Depression Screening 05/01/2024 05/01/2023 Colonoscopy 01/03/2025 01/04/2020, [...] (HCC)- Primary Obstructive chronic bronchitis with exacerbation documented in this encounter Advance Directives Healthcare Agents on File Name Relationship Healthcare Agent Relationship Communication Jeannie Mishra Other - (no specific identity) Health Care Ocean Export Coordinator (appointed verbally by patient or by statute hierarchy) Care Teams Teenage Program Director Relationship Specialty Start Date End Date Edelmira Cavanaugh MD [address] [place] [phone] PCP - General Internal Medicine 05/09/21 documented as of this encounter
--- OUTSIDE RECORDS SUMMARY | 2024-07-11 21:33 | External Medical Summary | Summary of Care ---
Author Name Unknown Organization [facility] Address [address] [place] [address] Phone [phone] Care Team Providers Care Digital Production Manager Name Role Phone Edelmira Cavanaugh MD Primary Care Provider Reason for Visit * Reason Comments eRx-Medication Refill Encounter Details Date Type Department Care Team (Late st Contact Info) Description 02/27/2024 Refill General Internal Medicine [facility] [address] [facility] [place] [address] Edelmira Cavanaugh MD [address] [facility] [place] [address] HTN, goal below 140/90 Allergies Active Allergy Reactions Criticality Noted Date Comments Levofloxacin Other (Please comment) Low 10/18/2021 Rash documented as of this encounter (statuses as of 02/29/2024) Medications aspirin enteric coated 81 MG TBEC [...] ns:COPD, group D, by GOLD 2017 classification ([facility]) Inhale 2 Puffs by mouth every 4 hours as needed for Cough, Shortness of Breath or Wheezing. 54 g 3 023 Active Levalbuterol Tartrate 45 MCG/ACT Inhalation Aerosol (Xopenex HFA)Indications:C OPD, group D, by GOLD 2017 classification ([facility]),COPD exacerbation ([facility]) Inhale 1 Puff by mouth every 4 hours as needed for Wheezing. 15 g 12 023 Active Levalbuterol HCl 1.25 MG/3ML Inhalation Nebulization SolutionIndicatio ns:COPD, group D, by GOLD 2017 classification ([facility] [...] [address] Bl[address]osing [address] 3 023 Active Montelukast Sodium 10 MG Oral Tablet (Singulair) Take 1 Tablet by mouth at bedtime. 90 Tablet 3 023 Active Rosuvastatin Calcium 20 MG [...] AT BEDTIME 45 Tablet 1 024 Active Metoprolol Succinate ER 25 MG Oral Tablet Extended Release 24 Hour (toPROL XL)Indications:HT N, goal below 140/90 Take 0.5 Tablets by mouth in the morning. 024 2023 Discontinued Hospital, Clinic, or Other Facility [...] as of this encounter (statuses as of 02/29/2024) Active Problems Problem Noted Date Diagnosed Date [...] as of this encounter (statuses as of 02/29/2024) Resolved Problems Problem Noted Date Diagnosed Date Resolved Date Chronic hypoxemic respiratory failure 08/01/2016 08/18/2018 COPD, severe 07/08/2013 02/10/2018 documented as of this encounter (statuses as of 02/29/2024) Immunizations Name Administration Dates Next Due COVID-19 mRNA, LNP-s, No Pre serve, 2-Dose Series ([employer]) 04/23/2021,08/25/2020,08/04/2020 COVID-19, LNP-s, No Preserve , Eddy-sucrose, Ages 12+ ([employer]) 11/04/2021 COVID-19, MRNA-LNP, 24-25, P R, 30MCG/0.3ML, IM, 12YRS AND ABOVE ([facility]) 01/14/2024 COVID-19, MRNA-LNP, PF, 30 M CG/0.3 mL, 12 YRS AND ABOVE, IM ([employer]Comirnat[employer]) 02/23/2023 Pneumococcal Conjugate Vacci ne, 20-valent ([id number]) 12/12/2021 Pneumococcal Polysaccharide PPV23 (Pneumovax) 08/10/2013,03/21/2011(Deferred: Patient [...] No 07/24/2023 Does the household have a [facility] source of income? (Household - for ages [...] encounter Miscellaneous Notes * Telephone Encounter - Luis Magallon [facility] - 02/29/2024 1:28 PM EST Signed Prescriptions: Disp Refills Metoprolol Succinate ER 25 MG Oral Tablet *45 Tab*1 Sig: TAKE 1/2 (ONE-HALF) TABLET BY MOUTH AT BEDTIMEAuthorizing Provider: Steve CAVANAUGH User: LUIS MAGALLON documented in this encounter Plan of Treatment Upcoming Encounters Date Type Department Care Team (Late st Contact Info) Description 04/08/2024 11:15 AM EST Imaging Radiology [address] [facility] [place] [address] 07/14/2024 1:00 PM EDT Office Visit [facility] [address] [place] [address] Edelmira Cavanaugh MD [address] [facility] [place] [address] Scheduled Procedures Name Priority Associated Diagnoses Date/Ti [...] Other - (no specific identity) Health Care Senior Quality Engineer (appointed verbally by patient or by statute hierarchy) Care Teams Digital Production Manager Relationship Specialty Start Date End Date Edelmira Cavanaugh MD [address] [place] [address] PCP - General Internal Medicine 05/09/21 documented as of this encounter
--- OUTSIDE RECORDS SUMMARY | 2024-07-11 21:33 | External Medical Summary ---
Author Name Unknown Address Unknown Organization K01:[facility] [address] [place] [address] Laboratory Report Ordering Provider Test Date Status ROSE MARIE 01/15/2024 09:47:13 Final Observation Date Value Abnormality Reference (Units ) Status PSA 01/15/2024 09:47:13 1.80 <4.10 (ng/ mL) Final Performing Location [facility] [address] [place] [address]
--- OUTSIDE RECORDS SUMMARY | 2024-07-11 21:33 | External Medical Summary ---
Author Name Unknown Address Unknown Organization K09:[facility] [address] [place] [address] Laboratory Report Ordering Provider Test Date Status ROSE MARIE 01/15/2024 09:47:13 Final Observation Date Value Abnormality Reference (Units ) Status BUN 01/15/2024 09:47:13 15 6-20 (mg/dL) Final Creatinine 01/15/2024 09:47:13 1.0 0.6-1.2 (mg/dL) Final Glomerular filtration rate/1.73 sq M.predicted [Volume Rate/Area] in Serum, Plasma or Blood by Creatinine-based formula (CKD-EPI) 01/15/2024 09:47:13 89 >=60 (mL/min) Final eGFR is calculated based on the CKD-EPI 2020 equation. Sodium 01/15/2024 09:47:13 141 135-146 (m mol/L) Final Potassium 01/15/2024 09:47:13 4.3 3.5-5.1 (m mol/L) Final Cl 01/15/2024 09:47:13 100 98-107 (mm ol/L) Final CO2 01/15/2024 09:47:13 30 22-32 (mmo l/L) Final Anion gap 01/15/2024 09:47:13 11 7-15 (mmol /L) Final Glucose 01/15/2024 09:47:13 130 Above high normal 70 -120 (mg/dL) Final Albumin 01/15/2024 09:47:13 4.4 3.8-5.0 (g /dL) Final AST (Aspartate aminotransferase) 01/15/2024 09:47:13 11 10-50 (U/L) Fin al Alk Phos 01/15/2024 09:47:13 84 35-130 (U/ L) Final Bilirubin, Total 01/15/2024 09:47:13 0.3 <=1 .2 (mg/dL) Final Calcium 01/15/2024 09:47:13 9.8 8.4-10.2 ( mg/dL) Final Protein 01/15/2024 09:47:13 6.9 6.0-8.3 (g /dL) Final ALT (Alanine aminotransferase) 01/15/2024 09:47:13 20 10-50 (U/L) Carl white Performing Location [facility] [address] [place] [address]
--- OUTSIDE RECORDS SUMMARY | 2024-07-11 21:33 | External Medical Summary | Summary of Care ---
Author Name Unknown Organization [facility] Address [address] [place] [address] Phone [phone] Care Team Providers Care Mobile Lounge Driver Or Operator Name Role Phone Edelmira Cavanaugh MD Primary Care Provider [phone] Reason for Visit * Reason Onset Date Comments case management 04/29/2024 Encounter Details Date Type Department Care Team (Late st Contact Info) Description 04/29/2024 Refill General Internal Medicine [facility] [address] [place] [address] Edelmira Cavanaugh MD [address] [place] [address] Need for case management follow-up*; COPD, group D, by GOLD 2017 classification ([facility]); COPD exacerbation ([facility]) Allergies Active Allergy Reactions Criticality Noted Date Comments Levofloxacin Other (Please comment) Low 10/18/2021 Rash documented as of this encounter (statuses as of 04/29/2024) Medications aspirin enteric coated 81 MG TBEC [...] 24 Active Benzonatate 100 MG Oral Capsule (Tessalkulwant Perlmadhavi)Indications :COPD exacerbation (HCC) Take 1 Capsule by [...] s:COPD, group D, by GOLD 2017 classification ([facility]),COPD exacerbation ([facility]),Need for case management follow-up Inhale 2 Puffs by mouth every 4 hours as needed for Cough, Shortness of Breath or Wheezing. 54 g 3 04/29/19 25 Active Fluticasone-Umecli din-Vilant 100-62.5-25 MCG/ACT Aerosol Powder Breath Activated (Trelegy Ellipta)Indication s:COPD, group D, by GOLD 2017 classification ([facility]),COPD exacerbation ([facility]),Need for case management follow-up Inhale 1 Puff by mouth in the morning. Please rinse mouth and gargle with water after use.. 180 Blister Dosing Unit 3 04/29/19 25 Active Levalbuterol Tartrate 45 MCG/ACT Inhalation Aerosol (Xopenex HFA)Indications:CO PD, group D, by GOLD 2017 classification ([facility]),COPD exacerbation ([facility]),Need for case management follow-up Inhale 1 Puff by mouth every 4 hours as needed for Wheezing. 15 g 12 04/29/19 25 Active Albuterol Sulfate HFA 108 (90 Base) MCG/ACT Inhalation Aerosol SolutionIndication s:COPD, group D, by GOLD 2017 classification ([facility]) Inhale 2 Puffs by mouth every 4 hours as needed for Cough, Shortness of Breath or Wheezing. 54 g 3 12/24/19 23 025 Discontin ued(Refil l) Levalbuterol Tartrate 45 MCG/ACT Inhalation Aerosol (Xopenex HFA)Indications:CO PD, group D, by GOLD 2017 classification ([facility]),COPD exacerbation ([facility]) Inhale 1 Puff by mouth every 4 hours as needed for Wheezing. 15 g 12 01/09/20 23 025 Discontin ued(Refil l) Fluticasone-Umecli din-Vilant 100-62.5-25 MCG/ACT Aerosol Powder Breath Activated (Trelegy Ellipta) Inhale 1 Puff by mouth in the morning. Please rinse mouth and gargle with water after use.. 180 Blister Dosing Unit 3 01/21/20 23 025 Discontin ued(Refil l) Hospital, Clinic, or Other Facility Administered Medication Ordered Dose Route Frequency Start Date End Date Status Albuterol Sulfate (Proventil) (2.5 MG/3ML) 0.083% inhalation solution 2.5 mgIndications:COPD, group D, by GOLD 2017 classification ([facility]) 2.5 mg NEBULIZER PRN 01/15/2024 01/14/2025 Acti ve albuterol (VENTOLIN HFA/PROVENTIL HFA) inhalerIndications:COPD , group D, by GOLD 2017 classification ([facility]) 3 Puff IN PRN 01/15/2024 01/14/2025 Acti ve documented as of this encounter (statuses as of 04/29/2024) Active Problems Problem Noted Date Diagnosed Date [...] as of this encounter (statuses as of 04/29/2024) Resolved Problems Problem Noted Date Diagnosed Date Resolved Date Chronic hypoxemic respiratory failure 08/01/2016 08/18/2018 COPD, severe 07/08/2013 02/10/2018 documented as of this encounter (statuses as of 04/29/2024) Immunizations Name Administration Dates Next Due COVID-19 mRNA, LNP-s, No Pre serve, 2-Dose Series ([employer]) 04/23/2021,08/25/2020,08/04/2020 COVID-19, LNP-s, No Preserve , Eddy-sucrose, Ages 12+ ([employer]) 11/04/2021 COVID-19, MRNA-LNP, 24-25, P R, 30MCG/0.3ML, IM, 12YRS AND ABOVE ([employer]) 01/14/2024 COVID-19, MRNA-LNP, PF, 30 M CG/0.3 mL, 12 YRS AND ABOVE, IM ([employer]) 02/23/2023 Pneumococcal Conjugate Vacci ne, 20-valent ([id number]) 12/12/2021 Pneumococcal Polysaccharide PPV23 (Pneumovax) 08/10/2013,03/21/2011(Deferred: Patient [...] Telephone Encounter - Kevin Alexander RN - 04/29/2024 1:20 PM EST Spoke with patient, he is requesting refills for his inhalers. Pended orders to Dr Cavanaugh. Thank you documented in this encounter Plan of Treatment Upcoming Encounters Date Type Department Care Team (Late st Contact Info) Description 05/17/2024 11:30 AM EST Office Visit Pulmonary Medicine, [facility] [address] [facility] [place] [address] Nima Carlin MD [address] [facility] [address] 07/14/2024 1:00 PM EDT Office Visit General Internal Medicine [facility] [address] [place] [address] Edelmira Cavanaugh MD [address] [place] [address] Scheduled Procedures Name Priority Associated Diagnoses Date/Ti [...] group D, by GOLD 2017 classification (HCC) COPD exacerbation (HCC) Obstructive chronic bronchitis with exacerbation documented in this encounter Advance Directives Healthcare Agents on File Name Relationship Healthcare Agent Relationship Communication Jeannie Tad Other - (no specific identity) Health Care Gas Well Drilling Manager (appointed verbally by patient or by statute hierarchy) Care Teams Mobile Lounge Driver Or Operator Relationship Specialty Start Date End Date Edelmira Cavanaugh MD [address] [place] [address] PCP - General Internal Medicine 05/09/21 documented as of this encounter
--- OUTSIDE RECORDS SUMMARY | 2024-07-11 21:33 | External Medical Summary | Summary of Care ---
Author Name Unknown Organization [facility] Address [address] [place] [address] Phone [phone] Care Team Providers Care Compliance Director Name Role Phone Edelmira Cavanaugh MD Primary Care Provider [phone] Reason for Visit * Reason Comments Outpatient Testing Encounter Details Date Type Department Care Team (Late st Contact Info) Description 01/15/2024 9:30 AM EDT Laboratory Laboratory [facility] [place] [address] [place] [address] [facility] [address] [place] [address] Dyslipidemia, goal LDL below 100; Chronic obstructive pulmonary disease with (acute) exacerbation (HCC); Prediabetes; Screening for prostate cancer Allergies Active Allergy Reactions Criticality Noted Date Comments Levofloxacin Other (Please comment) Low 10/18/2021 Rash documented as of this encounter (statuses as of 01/18/2024) Medications Medication Sig Dispensed Refills Start Date [...] s:COPD, group D, by GOLD 2017 classification ([facility]) Inhale 2 Puffs by mouth every 4 hours as needed for Cough, Shortness of Breath or Wheezing. 54 g 3 12/24/19 23 Active Levalbuterol Tartrate 45 MCG/ACT Inhalation Aerosol (Xopenex HFA)Indications:CO PD, group D, by GOLD 2017 classification ([facility]),COPD exacerbation ([facility]) Inhale 1 Puff by mouth every 4 hours as needed for Wheezing. 15 g 12 01/09/20 23 Active Levalbuterol HCl 1.25 MG/3ML Inhalation Nebulization SolutionIndication s:COPD, group D, by GOLD 2017 classification ([facility]),COPD exacerbation ([facility]) Inhale 3 mL via nebulizer every 8 hours as needed for Wheezing. 120 mL 5 01/09/20 23 Active Fluticasone-Umecli din-Vilant 100-62.5-25 MCG/ACT Aerosol Powder Breath Activated (Trelegy Ellipta) Inhale 1 Puff by mouth in the morning. Please rinse mouth and gargle with water after use.. 180 Blister Dosing Unit 3 01/21/20 23 Active Montelukast Sodium 10 MG Oral Tablet (Singulair) Take 1 Tablet by mouth at bedtime. 90 Tablet 3 03/10/20 23 Active Rosuvastatin Calcium 20 MG Oral [...] days 10 Tablet 1 11/26/19 24 Active Metoprolol Succinate ER 25 MG Oral Tablet Extended Release 24 Hour (toPROL XL)Indications:HTN , goal below 140/90 Take 0.5 Tablets by mouth in the morning and 0.5 Tablets before bedtime. 06/22/19 24 024 Discontinued Doxycycline Hyclate 100 MG Oral Capsule Take 1 Capsule by mouth in the morning and 1 Capsule before bedtime. until gone.. 28 Capsule 08/10/19 24 024 Discontinued(En d of Procedure) documented as of this encounter (statuses as of 01/18/2024) Active Problems Problem Noted Date Diagnosed Date [...] as of this encounter (statuses as of 01/18/2024) Resolved Problems Problem Noted Date Diagnosed Date Resolved Date Chronic hypoxemic respiratory failure 08/01/2016 08/18/2018 COPD, severe 07/08/2013 02/10/2018 documented as of this encounter (statuses as of 01/18/2024) Immunizations Name Administration Dates Next Due COVID-19 mRNA, LNP-s, No Pre serve, 2-Dose Series ([email or web address]) 04/23/2021,08/25/2020,08/04/2020 COVID-19, LNP-s, No Preserve , Eddy-sucrose, Ages 12+ (Pfizer) 11/04/2021 COVID-19, MRNA-LNP, 23-24, P F, 30 MCG/0.3 mL, 12 YRS AND ABOVE, IM ([employer] 02/23/2023 COVID-19, MRNA-LNP, 24-25, P R, 30MCG/0.3ML, IM, 12YRS AND ABOVE ([employer]) 01/14/2024 Pneumococcal Conjugate Vacci ne, 20-valent ([email or web address]) 12/12/2021 Pneumococcal Polysaccharide PPV23 (Pneumovax) 08/10/2013,03/21/2011(Deferred: Patient [...] Care Team (Late st Contact Info) Description 01/27/2024 2:30 PM EDT PulmDiagnostic Pulmonary Function Lab, [facility] [address] [facility] [place] [address] [place], [address] [facility] [place] [address] 02/29/2024 11:40 AM EST Office Visit Pulmonary Medicine, [facility] [address] [place] [address] Guille Hubbard, DO [address] [place] [address] 07/14/2024 1:00 PM EDT Office Visit General Internal Medicine [facility] [address] [facility] [place] [address] Edelmira Cavanaugh MD [address] [facility] [place] [address] Pending Results Name Type Priority Associated Diagnoses Date /Time HEMOGLOBIN A1C Lab Routine Prediabetes 01/15/2024 9:41 AM EDT Scheduled Procedures Name Priority Associated Diagnoses Date/Ti me COLONOSCOPY FLEXIBLE PROXIMAL DIAGNOSTIC Recall History of colon polyps Health Maintenance Due Date Last Done Comments Albumin/Creatinine Ratio 1978 Cologuard 2005 Fecal Occult Blood Test 2005 Sigmoidoscopy 2005 *ADVANCE DIRECTIVE NOT ON FILE 09/18/2018 DTap/Tdap Vaccines (2 - Td or Tdap) 07/09/2023 07/08/2013 HbA1c 03/11/2024 03/11/2023, 01/08/2023 Depression Screening 05/01/2024 05/01/2023 Colonoscopy 01/03/2025 01/04/2020, 08/05, 09/01/2013 Colorectal Cancer Screening 01/03/2025 GFR 01/14/2025 01/15/2024, 03/0 04/2023, 01/08/2023, Additional history exists O2 ASSESSMENT COMPLETED IN [...] Procedure Name Priority Date/Time Associated Diagnosis Comments LIPID PANEL WITH DIRECT LDL IF TG IS HIGH Routine 01/15/2024 9:47 AM EDT Dyslipidemia, goal LDL below 100 COMPREHENSIVE METABOLIC PANEL Routine 01/15/2024 9:47 AM EDT Dyslipidemia, goal LDL below 100 PSA Routine 01/15/2024 9:47 AM EDT Screening for prostate cancer CBC Routine 01/15/2024 9:47 AM EDT Chronic obstructive pulmonary disease with (acute) exacerbation (HCC) documented in this encounter Results * PSA (01/15/2024 9:47 AM EDT) PSA 1.80 <4.10 ng/mL 01/15/2024 9:20 PM EDT LAB[facility]ORY [facility] Blood Venous blood specimen / Unknown Venipuncture / Unknown 01/15/2024 9:47 AM EDT 01/15/2024 9:47 AM EDT Edelmira Cavanaugh MD LAB BLOOD ORDERABLES Performing Organization Address City/State/[facility] Co de Phone Number LABORATORY [address] [address] * (ABNORMAL) CBC (01/15/2024 9:47 AM EDT) WBC 10.09 4.00 - 10.80 K/uL 01/15/2024 9:55 AM EDT [facility]ATORY [place]- RBC 4.30 4.50 - 5.25 M/uL 01/15/2024 9:55 AM EDT [facility] [place]- HGB 13.4(L) 14.0 - 16.8 g/dL 01/15/2024 9:55 AM EDT [facility] [place] [facility]- HCT 41.8 40.0 - 48.4 % 01/15/2024 9:55 AM EDT [facility] [place] [facility]- MCV 97.2 82.0 - 99.5 fL 01/15/2024 9:55 AM EDT [facility] [place] [facility]- MCH 31.2 27.0 - 34.0 pg 01/15/2024 9:55 AM EDT [facility] [place]- MCHC 32.1 32.0 - 36.0 g/dL 01/15/2024 9:55 AM EDT [facility] [place] [facility]- RDW 13.3 11.5 - 15.5 % 01/15/2024 9:55 AM EDT [facility]ATORY [place] 56 PLT 244 140 - 400 K/uL 01/15/2024 9:55 AM EDT [facility] 56 MPV 9.9 6.6 - 11.1 fL 01/15/2024 9:55 AM EDT [facility] 56 Blood Venous blood specimen / Unknown Venipuncture / Unknown 01/15/2024 9:47 AM EDT 01/15/2024 9:47 AM EDT Edelmira Cavanaugh MD LAB BLOOD ORDERABLES [facility] [address] [place] [id number] * LIPID PANEL WITH DIRECT LDL IF TG IS HIGH (01/15/2024 9:47 AM EDT) Triglycerides 152 <=174 mg/dL 01/15/2024 9:11 PM EDT LAB[facility]ATORY [facility] Comment: Triglyceride Reference Ranges (mg/dL): <150 Acceptable 150-174 Borderline high 175-499 High >=500 Very high Cholesterol 176 <200 mg/dL 01/15/2024 9:11 PM EDT [facility]ORY [facility] Comment: Total Cholesterol Reference Ranges (mg/dL): <200 Desirable 200-239 Borderline high >=240 High HDL Cholesterol 44 >39 mg/dL 9:11 PM EDT [facility] Comment: HDL Cholesterol Reference Ranges (mg/dL): >=60 High (Desirable) <50 Low (Undesirable) For Females <40 Low (Undesirable) For Males Non-HDL Cholesterol 132 <=159 mg/dL 01/15/2024 9:11 PM EDT [facility]ORY [facility] Comment: Non-HDL Cholesterol Reference Range (mg/dL): <100 Target level for high risk ASCVD patient <130 Optimal for general population 130-159 Near optimal for general population 160-189 Borderline High 190-219 High >=220 Very High LDL Cholesterol 102 <=129 mg/dL 01/15/2024 9:11 PM EDT [facility]ORY [facility] Comment: LDL Cholesterol Reference Ranges (mg/dL): <70 Target level for high risk ASCVD patient <100 Optimal for general population 100-129 Near optimal for general population 130-159 Borderline high 160-189 High >=190 Very high Blood Venous blood specimen / Unknown Venipuncture / Unknown 01/15/2024 9:47 AM EDT 01/15/2024 9:47 AM EDT Edelmira Cavanaugh MD LAB BLOOD ORDERABLES [facility] [address] [place] [address] * (ABNORMAL) COMPREHENSIVE METABOLIC PANEL (01/15/2024 9:47 AM EDT) BUN 15 6 - 20 mg/dL 01/15/2024 10:58 AM EDT [facility] 56- CREATININE 1.0 0.6 - 1.2 mg/dL 01/15/2024 10:58 AM EDT [facility] 56- EGFR 89 >=60 mL/min 01/15/2024 10:58 AM EDT [facility] 56- Comment:eGFR is calculated b ased on the CKD-EPI 2020 equation. SODIUM 141 135 - 146 mmol/L 01/15/2024 10:58 AM EDT [facility] 56- POTASSIUM 4.3 3.5 - 5.1 mmol/L 01/15/2024 10:58 AM EDT [facility] 56- CHLORIDE 100 98 - 107 mmol/L 01/15/2024 10:58 AM EDT [facility] 56- CO2 30 22 - 32 mmol/L 01/15/2024 10:58 AM EDT [facility] 56- ANION GAP 11 7 - 15 mmol/L 01/15/2024 10:58 AM EDT [facility] 56- GLUCOSE 130(H) 70 - 120 mg/dL 01/15/2024 10:58 AM EDT [facility] 56- Albumin 4.4 3.8 - 5.0 g/dL 01/15/2024 10:58 AM EDT [facility] 56- AST 11 10 - 50 U/L 01/15/2024 10:58 AM EDT [facility] 56- Alkaline Phosphatase 84 35 - 130 U/L 01/15/2024 10:58 AM EDT [facility] 56 Bilirubin, Total 0.3 <=1.2 mg/dL 01/15/2024 10:58 AM EDT [facility] 56 CALCIUM 9.8 8.4 - 10.2 mg/dL 01/15/2024 10:58 AM EDT [facility] 56 Protein 6.9 6.0 - 8.3 g/dL 01/15/2024 10:58 AM EDT [facility] 56 ALT 20 10 - 50 U/L 01/15/2024 10:58 AM EDT [facility] 56 Blood Venous blood specimen / Unknown Venipuncture / Unknown 01/15/2024 9:47 AM EDT 01/15/2024 9:47 AM EDT Edelmira Cavanaugh MD LAB BLOOD ORDERABLES [facility] [address] [facility] [place] [address] documented in this encounter Visit Diagnoses Diagnosis Dyslipidemia, goal LDL below 100 Other and unspecified hyperlipidemia Chronic obstructive pulmonary disease with (acute) exacerbation (HCC) Prediabetes Other abnormal glucose Screening for prostate cancer Special screening for malignant neoplasm of prostate documented in this encounter Advance Directives Healthcare Agents on File Name Relationship Healthcare Agent Relationship Communication Jeannie Mishra Other - (no specific identity) Health Care Manager Banquet (appointed verbally by patient or by statute hierarchy) Care Teams Compliance Director Relationship Specialty Start Date End Date Edelmira Cavanaugh MD [address] [facility] [address] PCP - General Internal Medicine 05/09/21 documented as of this encounter
--- OUTSIDE RECORDS SUMMARY | 2024-07-11 21:33 | External Medical Summary ---
Author Name Unknown Address Unknown Organization [id number]:[facility] [place] [address] Laboratory Report Ordering Provider Test Date Status ROSE MARIE 01/15/2024 09:47:13 Final Observation Date Value Abnormality Reference (Units ) Status WBC, Total 01/15/2024 09:47:13 10.09 4.00-10.8 0 (K/uL) Final RBC 01/15/2024 09:47:13 4.30 4.50-5.25 (M/uL) Final Hemoglobin 01/15/2024 09:47:13 13.4 Below low normal 14 .0-16.8 (g/dL) Final HCT 01/15/2024 09:47:13 41.8 40.0-48.4 (%) Final MCV 01/15/2024 09:47:13 97.2 82.0-99.5 (fL) Final MCH 01/15/2024 09:47:13 31.2 27.0-34.0 (pg) Final MCHC 01/15/2024 09:47:13 32.1 32.0-36.0 (g/dL) Final RDW 01/15/2024 09:47:13 13.3 11.5-15.5 (%) Final Platelets 01/15/2024 09:47:13 244 140-400 (K /uL) Final MPV 01/15/2024 09:47:13 9.9 6.6-11.1 ( fL) Final Performing Location [facility] [place] [address]
--- OUTSIDE RECORDS SUMMARY | 2024-07-11 21:33 | External Medical Summary ---
Author Name Unknown Address Unknown Organization [id number]:LABORATORY [facility] - [address] [facility] [place] [address] Laboratory Report Ordering Provider Test Date Status ROSE MARIE 01/15/2024 09:41:00 Final Observation Date Value Abnormality Reference (Units ) Status HbA1C 01/15/2024 09:41:00 6.0 Above high normal 4. 0-5.6 (%) Final The use of HbA1c to monitor glycemic status is based on normal hemoglobin and HbA composition. This test should not be used in patients with abnormal hemoglobin that affects the half life of the red blood cell or the in vivo glycation rates. Glucose, estimated average 01/15/2024 09:41:00 126 Above high normal <126 (mg/dL) Carl white Performing Location LABORATORY [facility] - [address] [place] [address]
--- OUTSIDE RECORDS SUMMARY | 2024-07-11 21:33 | External Medical Summary ---
Author Name Unknown Address Unknown Organization [id number]:[facility] [place] [address] [facility] [place] [address] Laboratory Report Ordering Provider Test Date Status CHEYENNE MARIEALI 01/15/2024 09:47:13 Final Observation Date Value Abnormality Reference (Units ) Status Triglyceride 01/15/2024 09:47:13 152 <=174 ( mg/dL) Final Triglyceride Reference Range s (mg/dL):
<150 Acceptable
150-174 Borderline high
175-499 High
>=500 Very high Cholesterol 01/15/2024 09:47:13 176 <200 (mg /dL) Final Total Cholesterol Reference Ranges (mg/dL):
<200 Desirable
200-239 Borderline high
>=240 High HDL 01/15/2024 09:47:13 44 >39 (mg/dL ) Final HDL Cholesterol Reference Ra nges (mg/dL):
>=60 High (Desirable)
<50 Low (Undesirable) For Females
<40 Low (Undesirable) For Males NON-HDL CHOLESTEROL 01/15/2024 09:47:13 132 <=159 (mg/dL) Final Non-HDL Cholesterol Referenc e Range (mg/dL):
<100 Target level for high risk ASCVD patient
<130 Optimal for general population
130-159 Near optimal for general population
160-189 Borderline High
190-219 High
>=220 Very High LDL, (calculated) 01/15/2024 09:47:13 102 <= 129 (mg/dL) Final LDL Cholesterol Reference Ra nges (mg/dL):
<70 Target level for high risk ASCVD patient
<100 Optimal for general population
100-129 Near optimal for general population
130-159 Borderline high
160-189 High
>=190 Very high Performing Location [facility] [place] [address] [facility] [address]
--- OUTSIDE RECORDS SUMMARY | 2024-07-11 21:33 | External Medical Summary | Summary of Care ---
Author Name Unknown Organization [facility] Address [address] [place] [address] Phone [phone] Care Team Providers Care Restoration Silversmith Name Role Phone Edelmira Cavanaugh MD Primary Care Provider [phone] Reason for Visit * Reason Comments Follow Up Encounter Details Date Type Department Care Team (Latest Contact Info) Description 01/15/2024 10:20 AM EDT Office Visit General Internal Medicine [facility] [address] [place], [place] [id number] Edelmira Cavanaugh MD [address] [place] [address] Prediabetes*; HTN, goal below 140/90; Dyslipidemia, goal LDL below 100; COPD, group D, by GOLD 2017 classification (HCC); Centrilobular emphysema (HCC); Bronchiectasis without complication (HCC); Acute and chronic respiratory failure with hypoxia (HCC); Abnormal CT of the chest; Dependence on continuous supplemental oxygen; Chronic obstructive pulmonary disease with (acute) exacerbation (HCC); Mild obstructive sleep apnea-hypopnea syndrome; Multiple lung nodules; Nocturnal hypoxemia; RLS (restless legs syndrome); RVH (right ventricular hypertrophy); History of tobacco use; Migraine without aura and without status migrainosus, not intractable; Need for blduknrzph-gbjycli-eblk ussis (Tdap) vaccine; Screening for prostate cancer Allergies Active Allergy Reactions Criticality Noted Date Comments Levofloxacin Other (Please comment) Low 10/18/2021 Rash documented as of this encounter (statuses as of 01/15/2024) Medications Medication Sig Dispensed Refills Start Date End Date Status aspirin enteric coated 81 MG TBEC Take 1 Tab by mouth daily. 100 Tab 3 09/07/19 Active Multiple Vitamin (ONE-A-DAY MENS) Tablet Take 1 Tablet by mouth in the morning. 08/19/19 Active Acetaminophen 500 MG Oral Tablet (Tylenol) Take 1-2 Tablets by mouth every 8 hours as needed for Fever >38C(100.5F), Pain, Mild or Pain, Moderate. Active oxygen IN GAS 2 LPM via NC continuously 1 Each 04/14/19 Active guaiFENesin ER 600 MG Oral Tablet [...] s:COPD, group D, by GOLD 2017 classification ([facility]) Inhale 2 Puffs by mouth every 4 hours as needed for Cough, Shortness of Breath or Wheezing. 54 g 3 12/24/19 23 Active Levalbuterol Tartrate 45 MCG/ACT Inhalation Aerosol (Xopenex HFA)Indications:CO PD, group D, by GOLD 2017 classification ([facility]),COPD exacerbation ([facility]) Inhale 1 Puff by mouth every 4 hours as needed for Wheezing. 15 g 12 01/09/20 23 Active Levalbuterol HCl 1.25 MG/3ML Inhalation Nebulization SolutionIndication s:COPD, group D, by GOLD 2017 classification ([facility]),COPD exacerbation ([facility]) Inhale 3 mL via nebulizer every [...] 0.5 Tablets by mouth in the morning. 01/15/20 Active Lwzzlzv-Mjqppd-Tlr ll Pertussis 5-2-15.5 LF-MCG/0.5 Intramuscular Suspension (Adacel)Indication s:Need for diphtheria-tetanus -pertussis (Tdap) vaccine Inject 0.5 mL into a large muscle once for 1 dose. 0.5 mL 01/15/20 Active Metoprolol Succinate ER 25 MG Oral Tablet Extended Release 24 Hour (toPROL XL)Indications:HTN , goal below 140/90 Take 0.5 Tablets by mouth in the morning and 0.5 Tablets before bedtime. 06/22/19 Discontinued Doxycycline Hyclate 100 MG Oral Capsule Take 1 Capsule by mouth in the morning and 1 Capsule before bedtime. until gone.. 28 Capsule 08/10/19 24 Discontinued(En d of Procedure) Hospital, Clinic, or Other Facility Administered Medication Ordered Dose Route Frequency Start Date End Date Status Albuterol Sulfate (Proventil) (2.5 MG/3ML) 0.083% inhalation solution 2.5 mgIndications:COPD, group D, by GOLD 2017 classification ([facility]) 2.5 mg NEBULIZER PRN 01/15/2024 01/14/2025 Acti ve albuterol (VENTOLIN HFA/PROVENTIL HFA) inhalerIndications:COPD , group D, by GOLD 2017 classification ([facility]) 3 Puff IN PRN 01/15/2024 01/14/2025 [...] mRNA, LNP-s, No Pre serve, 2-Dose Series ([place]) 04/23/2021,08/25/2020,08/04/2020 COVID-19, LNP-s, No Preserve , Eddy-sucrose, Ages 12+ (Pfizer) 11/04/2021 COVID-19, MRNA-LNP, 23-24, P F, 30 MCG/0.3 mL, 12 YRS AND ABOVE, IM ([facility]) 02/23/2023 COVID-19, MRNA-LNP, 24-25, P R, 30MCG/0.3ML, IM, 12YRS AND ABOVE ([place]) 01/14/2024 Pneumococcal Conjugate Vacci ne, 20-valent ([id number]) 12/12/2021 Pneumococcal Polysaccharide PPV23 (Pneumovax) 08/10/2013,03/21/2011(Deferred: Patient [...] 0 [birth year]1977 - 06/28/2021 Smokeless Tobacco: Never Tobacco Cessation:Counseling Given: No Alcohol Use Standard Drinks/Week Comments No 0 [...] Sign Reading Time Taken Comments Blood Pressure 114/70 01/15/2024 9:57 AM EDT Pulse 113 01/15/2024 9:57 AM EDT Temperature 35.8 °C (96.5 °F) 01/15/2024 9:57 AM ED T Respiratory Rate 22 01/15/2024 9:57 AM EDT Oxygen Saturation 95% 01/15/2024 9:57 AM EDT Inhaled Oxygen Concentration - - Weight 79.5 kg (175 lb 4.8 oz) 01/15/2024 9:57 A M EDT Height 168.9 cm (5' 6.5") 01/15/2024 9:57 AM EDT Body Mass Index 27.87 01/15/2024 9:57 AM EDT documented in this encounter Progress Notes * Edelmira Cavanaugh MD - 01/15/2024 2:46 PM EDT Images from the original note were not included. History of Present Illness Liang Hodge is a 63 year old male that presents for Follow Up 63 year old male with a history of COPD Group D, Migraine Headaches, and Hyperlipidemia presents here for recheck. Acute concern :- -none -BP is low but not symptomatic Interimmedical history : Breathing is overall good. Taking metoprolol half tablet only once a day and doing fine. Watching diet and exercise : Yes Routine labs : Just got it and in process Routine HM : Up-to-date Chronic medical problem: reviewed and stable Physical Exam Vitals: 01/15/24 0957 Temp: 35.8 °C (96.5 °F) Pulse: 113 Resp: 22 SpO2: 95% BP: 114/70 BMI: 27.87 Physical Exam Vitals and nursing note reviewed. Constitutional: General: He is not in acute distress. Appearance: He is normal weight. HENT: Head: Normocephalic. Cardiovascular: Rate and Rhythm: Normal rate and regular rhythm. Pulmonary: Effort: Pulmonary effort is normal. No respiratory distress. Breath sounds: Rales (Slight bilateral) present. No wheezing. Abdominal: General: Bowel sounds are normal. There is no distension. Palpations: Abdomen is soft. There is no mass. Musculoskeletal: General: No swelling, tenderness or signs of injury. Cervical back: Neck supple. No rigidity. Skin: General: Skin is warm. Findings: No lesion or rash. Neurological: Mental Status: He is alert. Psychiatric: Mood and Affect: Mood normal. I have reviewed the following results: Assessment and Plan Prediabetes Doing well on conservative measure Continue to watch diet and exercise Wwill follow lab closely Await blood work HTN, goal below 140/90 If blood pressure continues to go low then can reduce amlodipine to have - COMPREHENSIVE METABOLIC PANEL; Future Dyslipidemia, goal LDL below 100 Await left - COMPREHENSIVE METABOLIC PANEL; Future - LIPID PANEL WITH DIRECT LDL IF TG IS HIGH; Future COPD, group D, by GOLD 2017 classification (HCC) Stable Continue current treatment as directed by flask pusher - SPIROMETRY B/A BRONCHODILATOR; Future - LUNG VOLUMES (PLETHYSMOGRAPHY); Future - DIFFUSION CAPACITY (DLCO); Future Centrilobular emphysema (HCC) Bronchiectasis without complication (HCC) Acute and chronic respiratory failure with hypoxia (HCC) Abnormal CT of the chest Dependence on continuous supplemental oxygen Chronic obstructive pulmonary disease with (acute) exacerbation (HCC) Mild obstructive sleep apnea-hypopnea syndrome Multiple lung nodules Nocturnal hypoxemia RLS (restless legs syndrome) Stable Continue current treatment as directed RVH (right ventricular hypertrophy) History of tobacco use Doing good staying away from it Migraine without aura and without status migrainosus, not intractable Stable Continue current treatment as directed Need for jlfavbeosf-eyujpkg-nfokcinaj (Tdap) vaccine - Lxcwvyu-Sbneqk-Snxhw Pertussis 5-2-15.5 LF-MCG/0.5 Intramuscular Suspension (Adacel); Inject 0.5 mL into a large muscle once for 1 dose. Screening for prostate cancer - PSA; Future Wrap-Up Follow Up: Return in about 6 months (around 07/15/2024) for recheck after labs. | For: recheck afterlabs Time: I spent a total of 30-39 minutes (exact time 36 mins) on the date of service in preparation, delivery, and documentation of the care provided to Liang Hodge excluding any time spent in the performance of separately billed services. documented in this encounter Nursing Notes * Kiara Simms, MED ASSIST - 01/15/2024 9:56 AM EDT Liang Hodge presents for 6 month recheck. He defers his TDaP today due to receiving his COVID and Flu vaccines. He doesn't believe he is in need of any refills at this time. Medications & HM reviewed. documented in this encounter Plan of Treatment Upcoming Encounters Date Type Department Care Team (Late st Contact Info) Description 01/27/2024 2:30 PM EDT PulmDiagnostic Pulmonary Function Lab, [facility] [address] [facility] [place] [address] [address], [address] [facility] [place] [address] 02/29/2024 11:40 AM EST Office Visit Pulmonary Medicine, [facility] [address] [facility] [place] [address] Guille Hubbard, DO [address] [place] [address] 07/14/2024 1:00 PM EDT Office Visit General Internal Medicine [facility] [address] [place] [address] Edelmira Cavanaugh MD [address] [place] [address] Pending Results Name Type Priority Associated Diagnoses Date /Time PSA Lab Routine Screening for prostate cancer 01/15/2024 9:47 AM EDT Scheduled Orders Name Type Priority Associated Diagnoses Orde r Schedule SPIROMETRY B/A BRONCHODILATOR Procedures Routine COPD, group D, by GOLD 2017 classification ([facility]) Expected: 01/15/2024, Expires: 02/14/2025 LUNG VOLUMES (PLETHYSMOGRAPHY) Procedures Routine COPD, group D, by GOLD 2017 classification ([facility]) Expected: 01/15/2024, Expires: 02/14/2025 DIFFUSION CAPACITY (DLCO) Procedures Routine COPD, group D, by GOLD 2017 classification ([facility]) Expected: 01/15/2024, Expires: 02/14/2025 COMPREHENSIVE METABOLIC PANEL Lab Routine HTN, goal below 140/90 Dyslipidemia, goal LDL below 100 Expected: 07/15/2024, Expires: 01/14/2025 LIPID PANEL WITH DIRECT LDL IF TG IS HIGH Lab Routine Dyslipidemia, goal LDL below 100 Expected: 07/15/2024, Expires: 01/14/2025 PSA Lab Routine Screening for prostate cancer Expected: 01/15/2024 (Approximate), Expires: 01/14/2025 Scheduled Procedures Name Priority Associated Diagnoses Date/Ti [...] 01/14/2025 01/15/2024, 04/2023, 01/08/2023, Additional history exists O2 ASSESSMENT COMPLETED IN PAST YEAR FOR COPD 01/14/2025 01/15/2024 Lipid Panel 06/04/2028 06/05/2023, 08/2022, 06/20/2022, Additional history exists RETIRED - [...] as of this encounter Visit Diagnoses Diagnosis Prediabetes- Primary Other abnormal glucose HTN, goal below 140/90 Unspecified essential hypertension Dyslipidemia, goal LDL below 100 Other and unspecified hyperlipidemia COPD, group D, by GOLD 2017 classification (HCC) Centrilobular emphysema (HCC) Other emphysema Bronchiectasis without complication (HCC) Bronchiectasis without acute exacerbation Acute and chronic respiratory failure with hypoxia (HCC) Acute and chronic respiratory failure Abnormal CT of the chest Nonspecific (abnormal) findings on radiological and other examination of other intrathoracic organs Dependence on continuous supplemental oxygen Chronic obstructive pulmonary disease with (acute) exacerbation (HCC) Mild obstructive sleep apnea-hypopnea syndrome Multiple lung nodules Other nonspecific abnormal finding of lung field Nocturnal hypoxemia Hypoxemia RLS (restless legs syndrome) Restless legs syndrome (RLS) RVH (right ventricular hypertrophy) Cardiomegaly History of tobacco use Personal history of tobacco use, presenting hazards to health Migraine without aura and without status migrainosus, not intractable Migraine without aura, without mention of intractable migraine without mention of status migrainosus Need for yfuiellrcf-ytzfnbz-isgotuhzx (Tdap) vaccine Need for prophylactic vaccination with combined venhxtkisb-anqkllj-jbemmiixe (DTP) vaccine Screening for prostate cancer Special screening for malignant neoplasm of prostate documented in this encounter Advance Directives Healthcare Agents on File Name Relationship Healthcare Agent Relationship Communication Jeannie Mishra Other - (no specific identity) Health Care Wool Handler (appointed verbally by patient or by statute hierarchy) Care Teams Restoration Silversmith Relationship Specialty Start Date End Date Edelmira Cavanaugh MD [address] [place] [address] PCP - General Internal Medicine 05/09/21 documented as of this encounter
--- OUTSIDE RECORDS SUMMARY | 2024-07-11 21:34 | External Medical Summary | Summary of Care ---
Author Name Unknown Organization [facility] Address [address] [place] [facility] [place] [address] Phone [phone] Care Team Providers Care Volunteer Services Supervisor Name Role Phone Edelmira Cavanaugh MD Primary Care Provider [phone] Reason for Visit * Reason Onset Date Comments Immunizations Medication Administration 01/14/2024 Flu an d/or Pneumo Inj Encounter Details Date Type Department Care Team (Late st Contact Info) Description 01/14/2024 10:20 AM EDT Immunization Ancillary [facility] [address] [place] [address] [facility] [address] [place] [address] Need for prophylactic vaccination and inoculation against influenza* Allergies Active Allergy Reactions Criticality Noted Date Comments Levofloxacin Other (Please comment) Low 10/18/2021 Rash documented as of this encounter (statuses as of 01/14/2024) Medications Medication Sig Dispensed Refills Start Date [...] D, by GOLD 2017 classification ([facility]) Inhale 2 Puffs by mouth every 4 hours as needed for Cough, Shortness of Breath or Wheezing. 54 g 3 12/23/2022 Active Levalbuterol Tartrate 45 MCG/ACT Inhalation Aerosol (Xopenex HFA)Indications:COPD , group D, by GOLD 2017 classification ([facility]),COPD exacerbation ([facility]) Inhale 1 Puff by mouth every 4 hours as needed for Wheezing. 15 g 12 01/08/2023 Active Levalbuterol HCl 1.25 MG/3ML Inhalation Nebulization SolutionIndications: COPD, group D, by GOLD 2017 classification ([facility]),COPD exacerbation ([facility]) Inhale 3 mL via nebulizer [...] Muscle spasms. 30 Tablet 3 06/22/2023 Active Metoprolol Succinate ER 25 MG Oral Tablet Extended Release 24 Hour (toPROL XL)Indications:HTN, goal below 140/90 Take 0.5 Tablets by mouth in the morning and 0.5 Tablets before bedtime. 06/22/2023 Active amLODIPine Besylate 2.5 MG Oral Tablet (Norvasc)Indications :HTN, goal below 140/90 Take 1 Tablet by mouth in the morning. 90 Tablet 3 06/22/2023 Active Doxycycline Hyclate 100 MG Oral Capsule Take 1 Capsule by mouth in the morning and 1 Capsule before bedtime. until gone.. 28 Capsule 08/10/2023 Active Probiotic Blend Oral Capsule Take 1 [...] 5 days 10 Tablet 1 11/26/2023 Active documented as of this encounter (statuses as of 01/14/2024) Active Problems Problem Noted Date Diagnosed Date [...] as of this encounter (statuses as of 01/14/2024) Resolved Problems Problem Noted Date Diagnosed Date Resolved Date Chronic hypoxemic respiratory failure 08/01/2016 08/18/2018 COPD, severe 07/08/2013 02/10/2018 documented as of this encounter (statuses as of 01/14/2024) Immunizations Name Administration Dates Next Due COVID-19 mRNA, LNP-s, No Pre serve, 2-Dose Series ([place]) 04/23/2021,08/25/2020,08/04/2020 COVID-19, LNP-s, No Preserve , Eddy-sucrose, Ages 12+ (Pfizer) 11/04/2021 COVID-19, MRNA-LNP, 23-24, P F, 30 MCG/0.3 mL, 12 YRS AND ABOVE, IM ([facility]) 02/23/2023 Pneumococcal Conjugate Vacci ne, 20-valent ([id number]) 12/12/2021 Pneumococcal Polysaccharide PPV23 (Pneumovax) 08/10/2013,03/21/2011(Deferred: Patient [...] on file documented as of this encounter Patient Instructions * Patient Instructions* Mimi Arteaga LPN - 01/14/2024 10:15 AM EDT ~~PATIENT INSTRUCTIONS FOR FLU SHOT~~ Possible side effects of influenza vaccine, (flu shot), are usually mild and include: 1. Soreness or redness at injection site 2. Low grade fever 3. Body aches You may use Tylenol/Acetaminophen as needed for these symptoms. LET YOUR DOCTOR KNOW IMMEDIATELY IF YOU HAVE DIFFICULTY BREATHING OR SWALLOWING, EXPERIENCE ITCHINGOF FEET OR HANDS, HAVE SWELLING OF EYES, FACE OR INSIDE OF NOSE. documented in this encounter Progress Notes * Mimi Arteaga LPN - 01/14/2024 10:15 AM EDT PRE - ADMINISTRATION DOCUMENTATION Are you experiencing any cold symptoms or fever? No Have you had Guillain-Woosung Syndrome (an illness that causes paralysis) within the last 6 weeks? No Have you had the flu shot in the past? YES Have you ever had a reaction to the flu shot? No Mimi Arteaga LPN, 01/14/2024 10:15 AM Immunization Administration Documentation Time Out Procedure Performed: Yes Patient Identified (Ask Name/Date of ): Yes Does the patient have a fever greater than 101 degrees today? No Patient allergic to latex? No VFC Stock: No Immunization(s) verified: Yes, Immunization Name: Flu, VIS Sheet(s) given: Yes Verified Side and Site: Yes Verified Shot(s) with Parent(s)/Patient: Yes documented in this encounter Plan of Treatment Upcoming Encounters Date Type Department Care Team (Late st Contact Info) Description 01/14/2024 10:45 AM EDT Immunization [facility] [address] [place] [address] [facility] [address] [place] [address] Arrived 01/15/2024 9:30 AM EDT Laboratory Laboratory [facility] [place] [address] [place] [address] Rick Amezcua [facility] [address] [facility] [place] [address] 01/15/2024 10:20 AM EDT Office Visit General Internal Medicine [facility] [place] [address] [place] [address] Edelmira Cavanaugh MD [address] [facility] [place] [address] 02/29/2024 11:40 AM EST Office Visit Pulmonary Medicine, [facility] [address] [facility] [place] [address] Guille Hubbard, [address] [place] [address] Scheduled Procedures Name Priority Associated Diagnoses Date/Ti me COLONOSCOPY FLEXIBLE PROXIMAL DIAGNOSTIC Recall History of colon polyps Health Maintenance Due Date Last Done Comments Albumin/Creatinine Ratio 1978 Cologuard 2005 Fecal Occult Blood Test 2005 Sigmoidoscopy 2005 *ADVANCE DIRECTIVE NOT ON FILE 09/18/2018 DTap/Tdap Vaccines (2 - Td or Tdap) 07/09/2023 07/08/2013 COVID-19 Vaccine ( season) 2023 02/23/2023, 11/04/2021, 04/23/2021, Additional history exists HbA1c 03/11/2024 03/11/2023, 01/08/2023 Depression Screening 05/01/2024 05/01/2023 GFR 06/04/2024 06/05/2023, 10/0 08/2022, 06/20/2022, Additional history exists O2 ASSESSMENT COMPLETED IN PAST YEAR FOR COPD 07/26/2024 07/27/2023 Colonoscopy 01/03/2025 01/04/2020, 08/05, 09/01/2013 Colorectal Cancer Screening 01/03/2025 Lipid Panel 06/04/2028 06/05/2023, 08/2022, 06/20/2022, Additional [...] this encounter Visit Diagnoses Diagnosis Need for prophylactic vaccination and inoculation against influenza- Primary documented in this encounter Advance Directives Healthcare Agents on File Name Relationship Healthcare Agent Relationship Communication Jeannie Mishra Other - (no specific identity) Health Care Machine Cell Tuber (appointed verbally by patient or by statute hierarchy) Care Teams Volunteer Services Supervisor Relationship Specialty Start Date End Date Edelmira Cavanaugh MD [address] [place], [place] [address] PCP - General Internal Medicine 05/09/21 documented as of this encounter
[2024-07-11] MEDS: METOPROLOL SUCC 25MG EXT REL TAB PO SCH (22:00)
[2024-07-11] MEDS: MONTELUKAST SODIUM 10 MG TABLET PO SCH (22:00)
[2024-07-11 22:32] LABS: Appearance Urine Clear (Clear); Bacteria Urine Automated None Seen (None Seen); Bilirubin Urine Negative (Negative); Blood Urine 2+ (Negative); Cast Urine Automated 0-2 /lpf (0-2); Color Urine Yellow; Epithelial Cell Urine Auto 0-2 /hpf (0-2); Glucose Urine UA Negative (Negative); Ketones Urine Trace (Negative); Leukocyte Esterase Urine Negative (Negative); Nitrite Urine Negative (Negative); Protein Urine Trace (Negative); Urobilinogen Urine Negative (Negative); WBC Urine Automated 0-5 /hpf (0-5); pH Urine 5.5 (4.5-7.5)
[2024-07-12] MEDS ORDERED: MELATONIN 3 MG TAB PO PRN (02:41)
[2024-07-12] MEDS: BENZONATATE 100 MG CAPSULE PO ONE (03:12)
[2024-07-12] MEDS: LIDOCAINE 5% 1 PATCH TD SCH (04:08)
[2024-07-12 06:17] LABS: Basophils # (auto) 0.01 K/uL (0.00-0.20); Basophils % (auto) 0.1 %; Hematocrit (blood only) 39.2 % (42.0-52.0); Hemoglobin 13.1 g/dl (14.0-18.0); Immature Granulocytes # (auto) 0.05 K/uL (0.01-0.20); Immature Granulocytes % (auto) 0.5 %; Lymphocytes # (auto) 0.84 K/uL (1.20-3.40); Lymphocytes % (auto) 8.7 %; Mean Corpuscular Hemoglobin 30.8 pg (25.0-34.0); Mean Corpuscular Hgb Conc 33.4 g/dL (32.0-36.0); Mean Corpuscular Volume 92.2 fL (80.0-100.0); Mean Platelet Volume 10.3 fL (9.4-12.4); Monocytes # (auto) 0.35 K/uL (0.11-0.59); Monocytes % (auto) 3.6 %; Neutrophils # (auto) 8.42 K/uL (1.40-6.50); Neutrophils % (auto) 87.1 %; Platelet Count 283 K/uL (130-400); RDW Coefficient of Variation 12.9 % (11.5-14.5); RDW Standard Deviation 43.5 fL (36.4-46.3); Red Blood Count 4.25 M/uL (4.70-6.10); White Blood Count 9.67 K/ul (4.8-10.8)
[2024-07-12 06:32] LABS: Albumin Globulin Ratio 1.6 (0.9-2); Albumin Level 4.5 gm/dl (3.4-5.0); BUN Creatinine Ratio 17.3 (10-20); Bilirubin,Total 0.3 mg/dl (0.2-1.0); Calcium 9.3 mg/dl (8.6-10.3); Creatinine Clr Calc Pharmacy 76.3 ml/min; Globulin 2.8 gm/dl (2.5-4.0); Magnesium 2.1 mg/dl (1.7-2.4); Phosphorus 2.6 mg/dl (2.5-4.9); Potassium 4.1 mmol/L (3.5-5.1); Total Protein 7.3 gm/dl (6.0-8.3)
--- NOTE | 2024-07-12 07:23 | Pulmonology Progress Note ---
Date of Service July 12, 2024 Assessment & Plan (1) Pneumothorax: (2) Acute on chronic hypoxic respiratory failure: (3) COPD (chronic obstructive pulmonary disease): Plan Impression: 64-year-old male with severe centrilobular and paraseptal emphysematous changes identified on prior CT scan admitted with secondary pneumothorax. He is now status post 14 [place] pigtail catheter placed in the left posterior axillary line at the level of the nipple with repeat chest x-ray pending. Recommendations: 1. Pneumothorax: A.m. chest x-ray reviewed and demonstrates resolution of pneumothorax. No airleak noted. Chest tube clamped this morning at 0800 with follow-up chest x-ray at 10 AM to be scheduled. If lung remains inflated on follow-up chest x-ray, chest tube can be pulled and patient to be discharged home. He has tolerated the tube well. He reports resolution of dyspnea and chest discomfort previously appreciated prior to chest tube placement. 2. COPD: The patient does not have signs or symptoms of an exacerbation. No indication for steroids or antibiotics currently. Continue bronchodilators in the form of Trelegy or pharmacy interchange and as needed DuoNebs. 3. Hypoxemia: Continue supplemental oxygen titrated to keep saturations at or above 90%. 4. Management the patient's other medical issues deferred to the primary admitting service. He can follow-up with [facility] pulmonary discharge. Thank you for allowing us to participate in the care of this pleasant patient. Pulmonary medicine will continue to follow. Admission and Anticipated Discharge Date Admission Date: July 11, 2024 Supervising Physician Co-Signing Physician Notes Reviewed with MIRIAM. Films reviewed. No reaccumulation of PTX after tube clamping trial. Tube removed. OK to discharge with pulmonary follow up through [facility]. Pulmonary will sign off. Call if ?S Subjective Patient seen and evaluated at bedside. He had an uneventful night. He reports his breathing is still improved since chest tube placement. He has some slight discomfort at the insertion site, but otherwise describes no pleuritic pain, hemoptysis, shortness of breath, or cough. Review of Systems Review of Systems: Per subjective Physical Exam Constitutional: WD/WN, vitals as above ENMT: No crepitus in the neck Neck: trachea midline, no thyromegaly Respiratory: + tachypneic; no respiratory distress, n o labored breathing and no cough Auscultation: + diminished lung sounds; no rhonchi and no wheezes Cardiovascular: RRR, no murmur, no edema Gastrointestinal (Abdomen): normal bowel sounds, soft, nontender, no hepatosplenomegaly Musculoskeletal: Extremities: extremities normal to inspection Skin: no rashes, warm and dry Neurologic: Nonfocal exam Lymphatic: no cervical lymphadenopathy Results & Data Results & Data Vital Signs (Past 12 Hours) Vital Signs Temp Pulse Pulse Resp BP Pulse Ox O2 Del Method 07/12/24 07:19 36.5 C 93 H 19 153/84 H 96 Nasal Cannula 07/12/24 02:42 36.3 C L 89 18 150/79 H 98 Nasal Cannula 07/12/24 00:00 106 H 07/11/24 23:25 36.6 C 92 H 18 137/75 96 Nasal Cannula 07/11/24 23:09 Nasal Cannula 07/11/24 19:52 36.5 C 109 H 20 127/85 97 Nasal Cannula O2 Flow Rate 07/12/24 07:19 2 07/12/24 02:42 2.0 07/12/24 00:00 07/11/24 23:25 2.0 07/11/24 23:09 2 07/11/24 19:52 2.0 PG Care Time/CCT Total # of Minutes Spent Total Time Spent with Patient: Total time spent is greater than 50% in coordination of care (as documented) at patient's floor/unit and/or counseling patient: Coding Level of Care Code 45472 SUB INP/OBS CARE 2/35MIN Diagnoses Pneumothorax J93.9 Acute on chronic hypoxic respiratory failure J96.21 COPD (chronic obstructive pulmonary disease) J44.9
[2024-07-12] MEDS: oxyCODONE HCL IR 5 MG TAB (IMMEDIATE RELEASE) PO PRN (07:38)
--- NOTE | 2024-07-12 08:01 | Hospitalist Progress Note ---
<Statement entered by Vito Rodriguez, - 07/12/24 15:22> I have seen and examined the patient and have discussed the case with the advance practice provider. I have reviewed the advanced practitioner's documentation, and I agree with, and take responsibility for that plan of care. Patient seen earlier this morning. Chest tube still in place. Pain is controlled. No shortness of breath. Lungs: Good airflow bilaterally Patient reports anticipating getting chest tube out today Reviewed pulmonary procedure note with removal of pigtail chest tube catheter Continue to monitor symptoms for recurrence Further plan of care as outlined below I spent a total of 11 minutes coordinating, documenting, and providing care for this patient excluding time spent by another provider/QHP. Date of Service July 12, 2024 Assessment & Plan (1) Pneumothorax on left: Plan: Liang Hodge is a 64y/o M with PMHx significant for HTN, HLD, COPD/centrilobular emphysema, bronchiectasis, mild JESUS-hypopnea syndrome, chronic hypoxic respiratory failure on 2L NC at baseline, multiple lung nodules, RVH, RLS, migraines and history of tobacco use who presented to the ED via EMS on 07/11/24 with c/o SOB and was found to have a spontaneous L-sided secondary pneumothorax. S/p chest tube placement on 07/11 by pulmonology with subsequent removal this morning after repeat CXR imaging revealed resolution of the pneumothorax. On baseline O2 requirement of 2L NC. Dyspnea resolved. Clear for d/c home per discussion with pulm; patient requesting to stay overnight for observation >> d/c home tomorrow. Patient requesting to establish with [facility] pulm for routine care - can be arranged; previously followed with [facility] pulm. Repeat CXR in AM. (2) COPD (chronic obstructive pulmonary disease): Plan: No signs/symptoms of acute exacerbation. No indication for ABX or steroids. Continue home inhalers and PRN Duonebs. Other Chronic Medical Conditions: HLD - Continue ASA and rosuvastatin. HTN - BP remains stable. Continue home antihypertensives. DVT Prophylaxis: Continue SCDs for now. Code Status: FULL CODE PCP: Edelmira Cavanaugh MD Disposition: Plan for discharge home tomorrow if patient remains clinically improved and stable. Patient seen in collaboration with Dr. Rodriguez. Please see addendum. I spent a total of 45 minutes coordinating, documenting, and providing care for this patient excluding time spent in the performance of separately billed services or time spent by another provider/QHP. This included personally reviewing all current laboratories and imaging studies, medical reconciliation, outpatient chart review and discussion with specialists. This chart was completed in part utilizing Speech Voice Recognition Software. Grammatical errors, random word insertions, pronoun errors, and incomplete sentences are an occasional consequence of this system due to software limitations, ambient noise, and hardware issues. Any formal questions or concerns about the content, text, or information contained within the body of this dictation should be directly addressed to the provider for clarification. Admission and Anticipated Discharge Date Admission Date: July 11, 2024 Subjective Patient seen and examined in room W452-1. [place]. Endorses significant improvement in his SOB. Uses 2L NC at baseline. Reviewed repeat CXR imaging this morning. Pulmonology planning on chest tube removal later this morning if repeat CXR remains stable 2 hours after clamping of the tube. Review of Systems Review of Systems: At least ten systems reviewed and negative, except as noted in the subjective section. Physical Exam Physical Exam: General: WD/WN. NAD. Laying down in bed. Very pleasant. Conversing appropriately. A+Ox3. HEENT: Normocephalic, atraumatic. Conjunctivae normal. External ear and nose normal. Moist mucous membranes. Respiratory: Normal respiratory effort. Decreased lung sounds throughout. + chest tube in place, clamped. On 2L NC. Cardiovascular: Regular rate, rhythm. Normal peripheral pulses. No BLE edema. Abdomen/GI: Normal bowel sounds, soft. Nondistended, nontender to palpation in all quadrants. Extremities/Musculoskeletal: No cyanosis or clubbing, extremities motor strength intact, moves all extremities. Neurologic: No overt focal deficits, CN's II-XI not formally tested but appear grossly intact bilaterally. Results & Data Results & Data Vital Signs (Past 12 Hours) Vital Signs Temp Pulse Pulse Resp BP Pulse Ox O2 Del Method 07/12/24 07:19 36.5 C 93 H 19 153/84 H 96 Nasal Cannula 07/12/24 02:42 36.3 C L 89 18 150/79 H 98 Nasal Cannula 07/12/24 00:00 106 H 07/11/24 23:25 36.6 C 92 H 18 137/75 96 Nasal Cannula 07/11/24 23:09 Nasal Cannula O2 Flow Rate 04/08/25 07:19 2 07/12/24 02:42 2.0 07/12/24 00:00 07/11/24 23:25 2.0 07/11/24 23:09 2 Laboratory Results Short CBC 07/11/24 07/12/24 Range/Units 13:35 05:45 WBC 10.99 H 9.67 (4.8-10.8) K/ul Hgb 14.5 13.1 L (14.0-18.0) g/dl Hct 44.5 39.2 L (42.0-52.0) % Plt Count 273 283 (130-400) K/uL BMP 07/11/24 07/12/24 13:35 05:45 Sodium 140 138 Potassium 3.9 4.1 Chloride 103 101 Carbon Dioxide 31 30 BUN 11 17 Creatinine 1.01 0.98 Glucose 125 H 158 H Calcium 9.6 9.3 Liver Function 07/11/24 07/12/24 Range/Units 13:35 05:45 Total Bilirubin 0.3 0.3 (0.2-1.0) mg/dl AST 12 L 11 L (13-39) U/L ALT 14 12 (7-52) U/L Alkaline Phosphatase 77 67 (34-104) U/L Albumin 5.0 4.5 (3.4-5.0) gm/dl Urine 07/11/24 Range/Units 22:18 Urine Color Yellow Urine Appearance Clear (Clear) Urine pH 5.5 (4.5-7.5) Ur Specific [place] 1.020 (1.000-1.030) Urine Protein Trace H (Negative) Urine Glucose (UA) Negative (Negative) Diagnostic Findings Chest X-Ray 07/11/24 13:13 XR chest 1V portable CLINICAL HISTORY: Dyspnea COMPARISON STUDY: 05/13/2023 FINDINGS: There is an interval small to moderate left pneumothorax with 2 cm pleural separation laterally and at the left apex. There is no consolidation or pleural effusion. IMPRESSION: Small to moderate left pneumothorax. ACT 112: Negative or not required by law. Electronically signed by: Liang Mcgarry M.D. 07/11/2024 1:31 PM Chest X-Ray 07/11/24 14:48 XR chest 1V portable CLINICAL HISTORY: post L CT placement COMPARISON STUDY: 07/11/2024 FINDINGS: Heart size and pulmonary vasculature are normal. Likely findings of emphysema again seen. There is an interval left chest tube with the distal tip lateral left mid pleural space. There is a trace residual left pneumothorax, significantly improved. No consolidation or pleural effusion. IMPRESSION: Trace left pneumothorax, significantly improved. ACT 112: Negative or not required by law. Electronically signed by: Liang Mcgarry M.D. 07/11/2024 3:17 PM Chest X-Ray 07/12/24 07:00 EXAM: XR chest 1V portable CLINICAL HISTORY: Pneumothorax TECHNIQUE: An X-ray image of the chest is obtained in AP projection. COMPARISON: 05/13/2023. FINDINGS: Pulmonary Parenchyma: Bilateral hypertransradiant/hyperinflated lung lam suggestive of COPD. Bilateral prominent bronchovascular/interstitial markings. No pneumothorax seen. Small pleural reaction causing blunting of left CP angle. No evidence of consolidation, collapse. No pulmonary nodules are identified. Right pleural recess is clear. Heart and Mediastinum: Heart size and shape are normal. No mediastinal widening or masses. No hilar or mediastinal lymphadenopathy. Bony Thorax: Bony thorax appears intact without fractures or deformities. Soft Tissues: Soft tissues overlying the chest wall are unremarkable. IMPRESSION: 1. No acute cardiopulmonary abnormalities are identified. 2. Bilateral hypertransradiant/hyperinflated lung lam suggestive of COPD. 3. Bilateral prominent bronchovascular/intersittial markings. 4. Left pleural thickening. 5. Comparing previous scan dated 05/13/2023 findings remains stable. Electronically signed by Kirill Ray 07-12-2024 08:01 AM (2) COPD (chronic obstructive pulmonary disease) COPD type: unspecified COPD Qualified Code(s): J44.9 - Chronic obstructive pulmonary disease, unspecified
[2024-07-12] MEDS: ROSUVASTATIN CALCIUM 20 MG TAB PO SCH (08:59)
[2024-07-12] MEDS: amLODIPine BESYLATE 5 MG TAB PO SCH (08:59)
[2024-07-12] MEDS: ASPIRIN 81 MG ECTAB PO SCH (08:59)
[2024-07-12] MEDS ORDERED: NON-FORMULARY MEDICATION (Fluticasone-Umeclidin-Vilanter [Trelegy Ellipta] 100-62.5-25 mcg INH SCH (09:00)
[2024-07-12] MEDS: UMECLIDINIUM/VILANTEROL 62.5/25MCG 7 PUFFS/INHALER INH SCH (09:00)
[2024-07-12] MEDS: FLUTICASONE FUROATE 100MCG 14 PUFFS/INHALER INH SCH (09:00)
[2024-07-12] MEDS: BENZONATATE 100 MG CAPSULE PO PRN (09:02)
--- NOTE | 2024-07-12 09:02 | XRay Report ---
XR chest 1V portable CLINICAL HISTORY: f/u COMPARISON STUDY: Chest CT February 09, 2022. Chest radiograph July 12, 2024 at 6:56 AM. FINDINGS: Left pleural catheter projects over the lateral left chest wall. Linear density projecting over the left lower chest may represent a pleural reflection. There is a trace left apical pneumothor ax. This has decreased in size since chest radiograph performed earlier today. IMPRESSION: 1. Left pleural catheter projects over the lateral left chest wall. Trace left apical pneumothorax, d ecreased in size since prior exam. 2. Linear density which projects over the left lower chest. This favors a pleural reflection. The siz e of the left pneumothorax is difficult to assess by radiography but likely small in size. ACT 112: Negative or not required by law. Electronically signed by: Andrew Ivan M.D. 07/12/2024 9:00 AM
--- NOTE | 2024-07-12 10:33 | Procedure Note ---
Procedure Note Date of Service July 12, 2024 Procedure: Pigtail Catheter Chest Tube removal Attending: Dr. Barnes APC: Ty Elias PA-C Indication: Resolution of LEFT-sided pneumothorax Anesthesia: None Prior to procedure, chest x-ray films were reviewed by myself and demonstrated near complete resolution of LEFT-sided pneumothorax with possible trace apical pneumothorax present which had decreased in size from earlier chest x-ray in the morning. Chest tube seems to have migrated and is likely in the subcutaneous tissue. A time-out was completed verifying correct patient, procedure, site, positioning, and implant(s) or special equipment if applicable. The chest tube had been clamped for greater than 2 hours prior to chest x-ray. Prior to that, there was no airleak. All equipment was present at bedside. The dressing was taken down and site was inspected without bleeding or crepitus. After 3 forced exhalation's, the chest tube was easily removed intact without issue. Patient did not experience significant discomfort. Wound was dressed with a Vaseline gauze dressing. He tolerated procedure well. No immediate complications were met. Communicated with nursing staff. Blood Loss: None Complications: None [facility] Procedure Codes (Charges) Pulmonary/Thoracic Procedure 1: Pulmonary and Thoracic: 65238 Remove lung catheter Coding CPT Codes Pulmonary/Thoracic - Pulmonary and Thoracic: 79032 Remove lung catheter ([id number]) Additional Codes Date of Service (PG.SURGERY)
[2024-07-12] MEDS: DEXTROMETHORPHAN POLYMR COMPLX 60 MG/10 ML UDP PO PRN (12:22)
[2024-07-12] MEDS: KETOROLAC TROMETHAMINE 15 MG/ML VIAL IV ONE (22:02)
[2024-07-12] MEDS: OPTIRAY 320 100ml IV ONE (22:13)
--- NOTE | 2024-07-13 00:20 | CT Scan Report ---
Exam(s): CT ABDOMEN + PELVIS With Contrast IV Amt: 90 cc opti 320 EXAM: CT Abdomen and Pelvis With Intravenous Contrast CLINICAL HISTORY: Reason for exam: abd pain. TECHNIQUE: Axial computed tomography images of the abdomen and pelvis with intravenous contrast. CTDI is 23.9 mGy and DLP is 1086 mGy-cm. Automated exposure control was utilized for the study. A dose lowering technique was utilized adhering to the principles of ALARA. CONTRAST: Patient received 90 cc opti 320 of IV contrast COMPARISON: Ultrasound from June 09, 2022 FINDINGS: Lung bases: Unremarkable. No mass. No consolidation. ABDOMEN: Liver: There are several simple cysts in the liver measuring up to 12 mm. No follow-up is required. Mild fatty infiltration of the liver. No focal liver mass lesion is seen. Gallbladder and bile ducts: Unremarkable. No calcified stones. No ductal dilation. Pancreas: Unremarkable. No mass. No ductal dilation. Spleen: Unremarkable. No splenomegaly. Adrenals: Unremarkable. No mass. Kidneys and ureters: Unremarkable. No solid mass. No hydronephrosis. Stomach and bowel: Unremarkable. No obstruction. No mucosal thickening. PELVIS: Appendix: The appendix is normal. Bowel loops are nondilated. No pneumoperitoneum, free fluid, or acute inflammatory changes are seen involving the bowel. Bladder: Unremarkable. No mass. Reproductive: Unremarkable as visualized. ABDOMEN and PELVIS: Intraperitoneal space: See above. Bones/joints: Mild degenerative changes in the spine. No acute fracture or subluxation is seen. Soft tissues: Unremarkable. Vasculature: The abdominal aorta is severely calcified but nondilated. Lymph nodes: Unremarkable. No enlarged lymph nodes. IMPRESSION: The appendix is normal. Bowel loops are nondilated. No pneumoperitoneum, free fluid, or acute inflammatory changes are seen involving the bowel. No acute process is seen within the abdomen or pelvis. Electronically signed by: Matthieu Mishra MD 07/13/24 00:19 AM
[2024-07-13 01:36] LABS: Basophils # (auto) 0.04 K/uL (0.00-0.20); Basophils % (auto) 0.2 %; Eosinophils # (auto) 0.02 K/uL (0.00-0.50); Eosinophils % (auto) 0.1 %; Hematocrit (blood only) 39.6 % (42.0-52.0); Hemoglobin 12.9 g/dl (14.0-18.0); Immature Granulocytes # (auto) 0.06 K/uL (0.01-0.20); Immature Granulocytes % (auto) 0.4 %; Lymphocytes # (auto) 2.17 K/uL (1.20-3.40); Lymphocytes % (auto) 12.9 %; Mean Corpuscular Hemoglobin 30.4 pg (25.0-34.0); Mean Corpuscular Hgb Conc 32.6 g/dL (32.0-36.0); Mean Corpuscular Volume 93.2 fL (80.0-100.0); Mean Platelet Volume 10.3 fL (9.4-12.4); Monocytes # (auto) 1.54 K/uL (0.11-0.59); Monocytes % (auto) 9.2 %; Neutrophils # (auto) 12.94 K/uL (1.40-6.50); Neutrophils % (auto) 77.2 %; Platelet Count 271 K/uL (130-400); RDW Coefficient of Variation 13.2 % (11.5-14.5); RDW Standard Deviation 44.5 fL (36.4-46.3); Red Blood Count 4.25 M/uL (4.70-6.10); White Blood Count 16.77 K/ul (4.8-10.8)
[2024-07-13 01:40] LABS: Albumin Globulin Ratio 1.8 (0.9-2); Albumin Level 4.4 gm/dl (3.4-5.0); Bilirubin,Total 0.2 mg/dl (0.2-1.0); Calcium 8.9 mg/dl (8.6-10.3); Creatinine Clr Calc Pharmacy 61.8 ml/min; Globulin 2.4 gm/dl (2.5-4.0); Magnesium 2.3 mg/dl (1.7-2.4); Potassium 4.1 mmol/L (3.5-5.1); Total Protein 6.8 gm/dl (6.0-8.3)
--- NOTE | 2024-07-13 05:41 | Electrocardiogram Report ---
Test Reason : Blood Pressure : */* mmHG Vent. Rate : 119 BPM Atrial Rate : 119 BPM P-R Int : 176 ms QRS Dur : 74 ms QT Int : 434 ms P-R-T Axes : * 71 87 degrees QTcB Int : 610 ms Sinus tachycardia Nonspecific T wave abnormality When compared with ECG of 14-May-2023 10:41, No significant change Confirmed by Moncho Logan ([id number]) on 07/13/2024 5:41:16 AM Referred By: REFERRED SELF Confirmed By: Moncho Logan
[2024-07-13 06:46] LABS: Appearance Urine Clear (Clear); Bacteria Urine Automated None Seen (None Seen); Bilirubin Urine Negative (Negative); Blood Urine 1+ (Negative); Cast Urine Automated 0-2 /lpf (0-2); Color Urine Yellow; Epithelial Cell Urine Auto 0-2 /hpf (0-2); Glucose Urine UA Negative (Negative); Ketones Urine Negative (Negative); Leukocyte Esterase Urine Negative (Negative); Nitrite Urine Negative (Negative); Protein Urine Negative (Negative); RBC Urine Automated 0-2 /hpf (0-2); Specific Gravity Urine 1.042 (1.000-1.030); Urobilinogen Urine Negative (Negative); WBC Urine Automated 0-5 /hpf (0-5); pH Urine 6.5 (4.5-7.5)
[2024-07-13 07:38] VITALS: PULSE 86; RESP 20; TEMP 97.7; O2SAT 97
--- NOTE | 2024-07-13 07:55 | XRay Report ---
EXAM: XR chest 1V portable CLINICAL HISTORY: Pneumothorax TECHNIQUE: An X-ray image of the chest is obtained in AP projection. COMPARISON: 07/12/2024 FINDINGS: Pulmonary Parenchyma: No definite pneumothorax in the current study. Faint reticulations seen at the left lower lung zone, suggesting atelectatic changes hyperinflation of both lungs with prominent bronchovascular markings, and peribronchial cuffing,g suggesting COPD. Lungs are clear bilaterally. No evidence of consolidation, collapse, or focal opacities. No pulmonary nodules are identified. No evidence of pleural effusion or pleural thickening. Heart and Mediastinum: Heart size and shape are normal. No mediastinal widening or masses. No hilar or mediastinal lymphadenopathy. Bony Thorax: Bony thorax appears intact without fractures or deformities. Soft Tissues: Soft tissues overlying the chest wall are unremarkable. IMPRESSION: 1. No definite pneumothorax in the current study; if clinically suspected, small pneumothorax, CT chest is advised. 2. COPD changes with left lower lung zone atelectatic changes. 3. Compared to the prior study, no interval changes were detected. Electronically signed by Kirill Ray 07-13-2024 07:54 AM
--- NOTE | 2024-07-13 10:17 | Discharge Summary ---
Discharge Summary Date of Service July 13, 2024 Principal Dx & Hospital Course #1 = Principal Diagnosis (1) Pneumothorax on left: Liang Hodge is a 64y/o M with PMHx significant for HTN, HLD, COPD/centrilobular emphysema, bronchiectasis, mild JESUS-hypopnea syndrome, chronic hypoxic respiratory failure on 2L NC at baseline, multiple lung nodules, RVH, RLS, migraines and history of tobacco use who presented to the ED via EMS on 07/11/24 with c/o SOB and was found to have a spontaneous L-sided secondary pneumothorax. S/p chest tube placement on 07/11 by pulmonology with subsequent removal on 07/12 after repeat CXR imaging revealed resolution of the pneumothorax. On baseline O2 requirement of 2L NC. Dyspnea resolved. Patient requesting to establish with [facility] pulmonology for routine care - information provided to arrange this; previously followed with [facility] pulmonology. 7-pill supply of oxycodone IR 5mg provided to patient to take only PRN Q8H for moderate-severe pain related to his chest tube insertion site. (2) Left lower quadrant abdominal pain: Acute episode of LLQ abdominal pain in the evening on 07/12. CTAP unremarkable. Now improving. Suspect pain likely 2/2 constipation. Had small BM on 07/12. Offered inpatient MiraLAX dose however patient opted to do this at home and will return to ED if pain and/or constipation are not resolved. (3) COPD (chronic obstructive pulmonary disease): No signs/symptoms of acute exacerbation. No indication for ABX or steroids. Continue home inhalers and PRN Duonebs. Other Chronic Medical Conditions: HLD - Continue ASA and rosuvastatin. HTN - BP remained stable. Continue home antihypertensives. PCP: Edelmira Cavanaugh MD Disposition: Patient is being discharged home in stable condition with close PCP follow-up. Patient seen in collaboration with Dr. Moon. Please see addendum. I spent a total of 45 minutes coordinating, documenting, and providing care for this patient excluding time spent in the performance of separately billed services or time spent by another provider/QHP. This included personally reviewing all current laboratories and imaging studies, medical reconciliation, outpatient chart review and discussion with specialists. This chart was completed in part utilizing Speech Voice Recognition Software. Grammatical errors, random word insertions, pronoun errors, and incomplete sentences are an occasional consequence of this system due to software limitations, ambient noise, and hardware issues. Any formal questions or concerns about the content, text, or information contained within the body of this dictation should be directly addressed to the provider for clarification. Notes For Next Care Provider Will need to establish routine pulmonology care with [facility] Pulmonary Medicine. Medication Changes From Visit Oxycodone IR 5mg Q8H PRN for moderate-severe pain Admission HPI Per Admitting Provider Patient is 64-year-old male with PMHx significant for COPD, chronic hypoxic respiratory failure on 2 L nasal cannula, nocturnal hypoxia, HLD, history of lung nodules presenting with worsening SOB despite nebulizer treatments at home. Hx obtained from pt. He notes he started having a cough and runny nose 2 days ago. Then started with left sided flank or back pain that was unrelenting. Has a hx of COPD and uses 2L of oxygen at baseline. States that he tried increasing his oxygen level at home and doing a breathing treatment with no significant relief. Eventually called 911 today and was given Solumedrol and another breathing treatment en route with no significant relief. Workup in the ED showed a left sided pneumothorax. He is asking what the procedure for chest tube placement will be like at the time of exam. He notes that he no longer smokes, quit about 4 years ago. Unclear about his home medications or who his PCP is. States he does not follow with Pulmonology. Admission Exam Per Admitting Provider General: Alert, oriented. Mild distress Psych: Appropriate mood and affect Neuro: No gross deficits HEENT: NC/AT, NC in nares CV: RRR Resp: Breathing through pursed lips, Breath sounds decreased bilaterally, increased effort of breathing Abdomen: Soft, nontender, nondistended Extremities: No edema in lower extremities bilaterally. Discharge Exam General: WD/WN. NAD. Laying down in bed. Very pleasant. Conversing appropriately. A+Ox3. HEENT: Normocephalic, atraumatic. Conjunctivae normal. External ear and nose normal. Moist mucous membranes. Respiratory: Normal respiratory effort. + dry cough. Decreased lung sounds throughout. On baseline 2L NC. Cardiovascular: Regular rate, rhythm. Normal peripheral pulses. No BLE edema. Abdomen/GI: Normal bowel sounds. + mild distention but soft. Slightly TTP in LLQ but no guarding. Extremities/Musculoskeletal: No cyanosis or clubbing, extremities motor strength intact, moves all extremities. Neurologic: No overt focal deficits, CN's II-XI not formally tested but appear grossly intact bilaterally. Updated Medication List Medication Instructions Recorded Confirmed Type aspirin 81 mg tablet,delayed 81 mg PO DAILY 01/02/23 07/11/24 History release fluticasone fur. 100 mcg-umeclid 1 inh inhalation DAILY 01/02/23 07/11/24 History 62.5 mcg-vilant 25 mcg inhalat.powder (Trelegy Ellipta) rosuvastatin 20 mg tablet 20 mg PO DAILY 01/02/23 07/11/24 History montelukast 10 mg tablet 10 mg PO HS #30 tabs 01/05/23 07/11/24 Rx levalbuterol HCl 1.25 mg/3 mL 1.25 mg inhalation Q8H PRN 05/13/23 07/11/24 History solution for nebulization Shortness Of Breath Or Wheezing amlodipine 5 mg tablet (Norvasc) 5 mg PO QAM #30 tabs 05/18/23 07/11/24 Rx metoprolol succinate 25 mg 12.5 mg PO HS 07/11/24 07/11/24 History tablet,extended release 24 hr oxycodone 5 mg tablet 5 mg PO Q8H PRN Moderate-Severe 07/13/24 Rx Pain #7 tabs Hospital Stay Data Consultations 07/11/24 13:49 ED Decision to Admit Stat 07/11/24 14:32 Consult Pulmonology Routine Diagnostic Imagining Performed 07/12/24 21:56 CT Abd and Pelvis [CT abd pelvis IV con only] Stat Pending Results Patient Have Any Pending Studies at Discharge: No Discharge Instructions Given to Patient (Per Discharging Provider) alicia Roy were admitted to [facility] after being found to have a left-sided spontaneous pneumothorax. A spontaneous pneumothorax is condition where air leaks into the space between the lung and the chest wall, causing the lung to collapse. It can happen without any obvious cause, like an injury, and is often referred to as "spontaneous" because it occurs unexpectedly. You required placement of a chest tube in order to help remove the air from around your lung. Repeat chest x-ray imaging revealed resolution of your pneumothorax. You can continue taking either Delsym or Robitussin to help a lleviate your cough. MEDICATION CHANGES: Oxycodone IR 5mg every 8 hours only NEEDED for MODERATE-SEVERE PAIN related to your chest tube insertion site. Please remember to take stool softeners, such as Colace, while on this medication as it can cause constipation. You are also encouraged to utilize MiraLAX as needed for constipation relief like we had disc sed. RECOMMENDATIONS FOR FOLLOW-UP Please attend your PCP follow-up appointment as outlined in your discharge paperwork. Please call the [facility] Pulmonary Medicine office in [place] @ [phone] to establish care. Seek medical attention if you have: * temperature above 101F * chest pain or trouble breathing * abdominal pain, nausea, vomiting * diarrhea, dark stools or bloody stools * any unanswered questions or concerns Call 911 if symptoms are severe. Please take good care of yourself. It has been a pleasure taking care of you. If you have any questions regarding your recent hospitalization please contact [facility] and request [facility] @ [phone]. Total Time Total Time Spent Total Time Spent (In Minutes): 45 Supervising Physician Co-Signing Physician Notes Admitted with pneumothorax, s/p chest tube placement via pulmonary consultation, f/u chest xray this morning no evidence of pneumothorax. Stable for discharge home at this time. I have seen and discussed the case with the collaborating advanced practitioner. I agree with the above H&P. I have reviewed and confirmed the patients medical history, the findings on physical examination, and the patients diagnosis and treatment plan with Barbara MCKINNEY and agree with the information documented. I spent a total of 20 minutes coordinating, documenting, and providing care for this patient excluding time spent in the performance of separately billed services. All of the aforementioned completed outside of collaborating with the assigned advanced practitioner for a full treatment plan. I have reviewed the advanced practitioner's documentation, and I agree with, and take responsibility for the plan of care
[2024-07-13 10:55] VITALS: BP 111/68
--- NOTE | 2024-07-14 14:21 | Coding Query ---
CODING QUERY To promote full compliance with coding requirements relating to patient care, provider participation is requested in all cases of electroplater automatic uncertainty. Please assist us with the question(s) below: Coding Question(s): The 07/11 Pulmonary Consultation documents, "admitted with secondary pneumothorax", and, "Asked by hospitalist and ER staff to evaluate this patient with spontaneous secondary pneumothorax", and the Discharge Summary documents, "was found to have a spontaneous L-sided secondary pneumothorax. It is not clear what the underlying condition of the spontaneous secondary pneumothorax is. Please specify below, in your clinical opinion: ( X ) Spontaneous Secondary Pneumothorax with underlying condition of: Please specify the underlying condition COPD ( ) Spontaneous Secondary Pneumothorax with no applicable underlying condition ( ) Other - Please Specify Physician's Response(s): Thank you Rita Alejandro Principal Diagnosis: "that condition established after study, to be chiefly responsible for occasioning the admission of the patient to the hospital for care." Co-Existing Principal Diagnosis: "when two or more diagnoses equally meet the criteria for principal diagnosis as determined by the circumstances of admission, diagnostic work up, and/or therapy provided, and the Alphabetic Index, Tabular List, or another coding guideline does not provide sequencing direction, any one of the diagnoses may be sequenced first." "When the physician has documented what appears to be a current diagnosis in the body of the record, but has not included the diagnosis in the final diagnostic statement, the physician should be asked whether the diagnosis should be added." (Source [facility] 2 QTR90. p3-4) SEB
== END 2024-07-13 11:47 | disposition home or self-care (01) | DRG 190 ==
LOC: ED 12:49 → 4W 14:13 → SUATTDRO 14:13 → 4W 15:46